=== PATIENT | male | born 1940 | race American Indian/Alaskan Native ===

== ENCOUNTER 2017-09-21 20:29 | Emergency (ER) | payer MEDICARE ==
[2017-09-21 21:17] LABS: Hematocrit 31.4 % (35.5-45.6); Hemoglobin 9.5 gm/dl (11.8-15.2); Mean Corpuscular HGB Conc 30 % (32-34); Platelet Count 201 K/mm3 (140-440); Red Blood Count 4.85 M/mm3 (3.65-5.03); Red Cell Distribution Width 19.2 % (13.2-15.2)
[2017-09-21 21:22] LABS: Mean Corpuscular Hemoglobin 20 pg (28-32); Mean Corpuscular Volume 65 fl (84-94)
[2017-09-21 21:28] LABS: INR 0.95 (0.87-1.13)
[2017-09-21 21:29] LABS: Partial Thromboplastin Time 30.1 Sec. (24.2-36.6)
[2017-09-21 21:33] LABS: BUN/Creatinine Ratio 8; Blood Urea Nitrogen 10 mg/dL (9-20); Calcium 8.8 mg/dL (8.4-10.2); Hemolysis Index 0
[2017-09-21] MEDS ORDERED: NORCO 7.5/325 PO ONE (23:04)
--- NOTE | 2017-09-21 23:54 | XRay Report ---
FINAL REPORT EXAM: XR HIP 2-3V RT HISTORY: pain R hip, knee, 1 wk TECHNIQUE: Right hip and AP pelvis PRIORS: None. FINDINGS: No fracture identified. No dislocation seen. Femoral head maintains a normal contour. Joint spaces within normal limits. Adjacent bony pelvis is unremarkable IMPRESSION: Negative hip series
--- NOTE | 2017-09-21 23:58 | XRay Report ---
FINAL REPORT EXAM: XR KNEE 3V RT HISTORY: pain R hip, knee, 1 wk TECHNIQUE: Right knee three views PRIORS: None. FINDINGS: There is right total knee replacement. There is no evidence for acute fracture dislocation. Components are intact and demonstrate expected positioning. IMPRESSION: Right total knee replacement No acute fracture identified
--- NOTE | 2017-09-22 00:09 | Cat Scan Report ---
FINAL REPORT EXAM: CT HEAD/BRAIN WO CON HISTORY: right leg weakness, 1 wk, prior hx stroke TECHNIQUE: Routine axial imaging was obtained of the brain without IV contrast. There are no previous studies available for comparison FINDINGS: There mcln-du-dnrrmwiu generalized atrophy. There is diminished attenuation of the periventricular and deep white matter compatible chronic microvascular disease changes. There are remote infarcts in the deep white matter of the left temporal lobe and basal ganglia. There is no evidence of acute stroke or hemorrhage. The ventricular system is appropriate in size. The visualized sinuses are clear. The mastoid air cells are well pneumatized. IMPRESSION: Bqks-dn-canuhlex generalized atrophy with chronic ischemic white matter disease changes Remote infarcts in the deep white matter of the left temporal lobe and adjacent basal ganglia. No evidence of acute stroke or hemorrhage.
--- NOTE | 2017-09-22 00:36 | Emergency Department Report ---
ED General Adult HPI - General Chief complaint: Extremity Injury, Lower Stated complaint: RIGHT LEG PAIN Time Seen by Provider: 09/21/17 22:50 Source: patient, family, EMS Mode of arrival: Wheelchair Limitations: Physical Limitation - History of Present Illness Initial comments: 77-year-old man, with chronic weakness and right upper and right lower extremity secondary to stroke in 2008, presents with one-week history of progressive pain, difficulty using his right upper extremity, primarily secondary to his pain. He walks with a semi-spastic gait, uses a walker, and has used braces previously for his leg weakness, but generally does not now. He has known osteoarthritis in his lower extremities, particularly on the right , but is difficulty standing and bearing weight because of the pain, but family is concerned that he may have had an additional stroke. He shows no other aggressive symptoms, no difficulty speaking, no facial droop, and no change in use of his right upper extremity, for which she is getting most of his use back. He has no left-sided complaints, no dizziness, no loss of consciousness, no falls and no injuries. Onset/Timin -: Gradual, week(s) Location: right, lower extremity Radiation: non-radiation Severity scale (0 -10): 5 Quality: aching Consistency: constant Improves with: none Worsens with: movement Associated Symptoms: denies other symptoms Treatments Prior to Arrival: none - Related Data Home Medications Medication Instructions Recorded Confirmed Last Taken Carafate 1 gram PO DAILY 09/21/17 09/21/17 Unknown Lisinopril 20 mg PO DAILY 09/21/17 09/21/17 Unknown Pepcid 20 mg PO DAILY 09/21/17 09/21/17 Unknown Plavix 75 mg PO DAILY 09/21/17 09/21/17 Unknown Simvastatin 40 mg PO HS 09/21/17 09/21/17 Unknown amLODIPine 5 mg PO DAILY 09/21/17 09/21/17 Unknown metFORMIN 500 mg PO DAILY 09/21/17 09/21/17 Unknown Previous Rx's Medication Instructions Recorded Last Taken Type HYDROcodone/APAP 5-325 [[place] 1 each PO Q6HR PRN #20 tablet 09/22/17 Unknown Rx 5/325] Allergies Allergy/AdvReac Type Severity Reaction Status Date / Time Penicillins Allergy Unknown Verified 09/21/17 20:51 ED Review of Systems ROS: Stated complaint: RIGHT LEG PAIN Other details as noted in HPI Comment: All other systems reviewed and negative Constitutional: denies: chills, fever ENT: denies: ear pain, throat pain Respiratory: denies: cough, shortness of breath, wheezing Cardiovascular: denies: chest pain, palpitations Endocrine: no symptoms reported Gastrointestinal: denies: abdominal pain, nausea, diarrhea Genitourinary: denies: urgency, dysuria Musculoskeletal: denies: back pain, joint swelling, arthralgia Skin: denies: rash, lesions Neurological: denies: headache, weakness, numbness, paresthesias Psychiatric: denies: anxiety, depression Hematological/Lymphatic: denies: easy bleeding, easy bruising ED Past Medical Hx - Past Medical History Hx Hypertension: Yes Hx CVA: Yes (with right-sided weakness,walks with maria l walker,right arm flaccid) Hx Diabetes: Yes Hx GERD: Yes Hx Asthma: Yes Additional medical history: elevated cholesterol - Surgical History Additional Surgical History: right knee total knee - Social History Smoking Status: Unknown if ever smoked Substance Use Type: None - Medications Home Medications: Home Medications Medication Instructions Recorded Confirmed Last Taken Type Carafate 1 gram PO DAILY 09/21/17 09/21/17 Unknown History Lisinopril 20 mg PO DAILY 09/21/17 09/21/17 Unknown History Pepcid 20 mg PO DAILY 09/21/17 09/21/17 Unknown History Plavix 75 mg PO DAILY 09/21/17 09/21/17 Unknown History Simvastatin 40 mg PO HS 09/21/17 09/21/17 Unknown History amLODIPine 5 mg PO DAILY 09/21/17 09/21/17 Unknown History metFORMIN 500 mg PO DAILY 09/21/17 09/21/17 Unknown History HYDROcodone/APAP 5-325 [[place] 1 each PO Q6HR PRN #20 tablet 09/22/17 Unknown Rx 5/325] ED Physical Exam - General Limitations: Physical Limitation General appearance: alert, in no apparent distress - Head Head exam: Present: atraumatic, normocephalic - Eye Eye exam: Present: PERRL - ENT ENT exam: Present: mucous membranes moist - Neck Neck exam: Present: normal inspection. Absent: tenderness, meningismus - Respiratory Respiratory exam: Present: normal lung sounds bilaterally. Absent: respiratory distress, wheezes, rales, rhonchi - Cardiovascular Cardiovascular Exam: Present: regular rate, normal heart sounds - GI/Abdominal GI/Abdominal exam: Present: soft, normal bowel sounds. Absent: distended, tenderness, guarding - Rectal Rectal exam: Present: deferred - Extremities Exam Extremities exam: Present: pedal edema (bilateral, 2-3+, right leg braced) - Expanded Lower Extremity Exam Right Hip exam: Present: full ROM, tenderness (with range of motion) Upper Leg exam: Present: normal inspection, full ROM. Absent: tenderness Knee exam: Present: tenderness (to general palpation), swelling (chronic enlargement, no effusion), deformity (secondary to osteoarthritis, no bony laxity), full knee extension. Absent: full ROM (Limited secondary to pain, but generally adequate range of motion), laceration, ecchymosis, effusion, pain/ laxity with valgus, pain/laxity with varus Lower Leg exam: Present: normal inspection. Absent: tenderness, ecchymosis, erythema, palpable cord Ankle exam: Present: normal inspection Neuro vascular tendon exam: Present: no vascular compromise Gait: Positive: not tested/not observed (due to chronic pain) - Back Exam Back exam: Present: normal inspection. Absent: CVA tenderness (R), CVA tenderness (L) - Neurological Exam Neurological exam: Present: alert, oriented X3, CN II-XII intact, other ( chronic weakness right arm, right leg,) - Psychiatric Psychiatric exam: Present: normal affect - Skin Skin exam: Present: warm, dry ED Course Vital Signs 09/21/17 09/21/17 20:28 20:42 Temperature 37.5 C 37.5 C Pulse Rate 93 H 94 H Respiratory 18 18 Rate Blood Pressure 148/75 148/75 O2 Sat by Pulse 96 96 Oximetry ED Medical Decision Making - Lab Data Result diagrams: 09/21/17 21:00 09/21/17 21:00 - Radiology Data Radiology results: report reviewed Right knee shows satisfactory right total knee replacement, with no dislocation disruption or fracture. Right hip is without fracture, or dislocation, and portion of pelvis surrounding hip is normal as well. CT scan shows evidence of prior left parietal infarct and basal ganglia, but no new infarct, no fluid, no mass effect, no midline shift. - Medical Decision Making Patient is clinically stable, has a chronic paresis of right side, but no findings suggestive of acute stroke, and no evidence of fracture on imaging. Although his discomfort could be from venous thromboembolism, he is currently on clopidogrel therapy, but would need a duplex Doppler venous imaging of the lower extremities, which is not available at this time. He is stable for discharge home, has been pointed with his primary care physician tomorrow, and will be discharged with pain medication, and given a prescription for venous Doppler imaging, which she can return for, or he can make arrangements through his physician. - Differential Diagnosis chronic leg pain, chronic paresis, leg fracture, stroke, DVT Critical Care Time: No Critical care attestation.: If time is entered above; I have spent that time in minutes in the direct care of this critically ill patient, excluding procedure time. ED Disposition Clinical Impression: Right leg pain, History of stroke Diabetes mellitus Qualifiers: Diabetes mellitus type: type 2 Diabetes mellitus chcf insulin use: without chcf use Diabetes mellitus complication status: without complication Qualified Code(s): E11.9 - Type 2 diabetes mellitus without complications Disposition: TO HOME OR SELFCARE Is pt being admited?: No Does the pt Need Aspirin: No Condition: Stable Instructions: Diabetes Mellitus Type 2 in Adults (ED), Arthralgia (ED) Additional Instructions: Return tomorrow to the emergency department, to register for Doppler scanning of her legs to check for blood clots. We will perform test, and make arrangements for further care if you're tested positive for blood clot. If you wish, he may had these tests are arranged for your doctor, whom you have an appointment to see tomorrow. We're also prescribing hydrocodone for pain, which he may take up to 4 times per day. Immature activities while you're taking pain medicine and rest while you're feeling discomfort. Prescriptions: HYDROcodone/APAP 5-325 [Benedict 5/325] 1 each PO Q6HR PRN #20 tablet PRN Reason: Pain Referrals: KANDACE LAMAR JR, MD [Primary Care Provider] - 3-5 Days Time of Disposition: 01:03
[2017-09-22 01:33] VITALS: BP 136/85
== END 2017-09-22 01:33 | disposition home or self-care (01) ==
LOC: ED 20:29
DX: M79.604 Pain in right leg (principal); E11.9 Type 2 diabetes mellitus without complications; I10 Essential (primary) hypertension; K21.9 Gastro-esophageal reflux disease without esophagitis; E78.00 Pure hypercholesterolemia, unspecified; J45.909 Unspecified asthma, uncomplicated; Z86.73 Personal history of transient ischemic attack (TIA), and cerebral infarction without residual deficits; Z79.84 Long term (current) use of oral hypoglycemic drugs; Z88.0 Allergy status to penicillin
CPT/HCPCS: 36415; 70450; 80048; 83880; 84484; 85027; 85610; 85730

== ENCOUNTER 2018-04-11 15:57 | Inpatient (IN) | payer MEDICARE ==
--- NOTE | 2018-04-11 18:21 | XRay Report ---
FINAL REPORT EXAM: XR CHEST ROUTINE 2V HISTORY: cough TECHNIQUE: 2 view examination of the chest PRIORS: None FINDINGS: Nonspecific streaky densities are present bilaterally with lung base predominance. This interstitial prominence may represent interstitial and/or vascular markings. There is no focal pulmonary consolidation. No evidence of pleural effusion or pneumothorax. The car diac silhouette size is normal. No evidence of acute skeletal pathology. Atherosclerotic calcificati on and tortuosity of aorta. Degenerative spondylosis in thoracic spine. IMPRESSION: Nonspecific interstitial prominence may reflect scarring or fibrosis. Acute considerations include r eactive airways disease, vascular congestion, interstitial edema, viral process, or interstitial pneu monitis.
[2018-04-11 18:22] LABS: Hematocrit 32.7 % (35.5-45.6); Mean Corpuscular HGB Conc 31 % (32-34); Platelet Count 202 K/mm3 (140-440); Red Blood Count 4.74 M/mm3 (3.65-5.03)
[2018-04-11 18:29] LABS: Mean Corpuscular Volume 69 fl (84-94); Red Cell Distribution Width 21.1 % (13.2-15.2)
--- NOTE | 2018-04-11 18:44 | Emergency Department Report ---
<CHARLENE HUMPHREY - Last Filed: 04/11/18 18:40> ED General Adult HPI - General Chief complaint: Extremity Injury, Lower Stated complaint: SWOLLEN FEET/L LEG PAIN Time Seen by Provider: 04/11/18 17:14 Source: patient Mode of arrival: Wheelchair Limitations: No Limitations - History of Present Illness Initial comments: Patient is a 77-year-old [place] male with a past medical history of CVA with right-sided residual weakness as well as diabetes and hypertension who is complaining of lower extremity swelling for the past 2-3 days. The right lower extremity is more swollen than the left. Patient's family history of gout howev er the swelling is now up to the level of the knees. Patient's family also is concerned of a cough that is been present for the past several days as well. Patient has very minimal shortness of breath. Patient has no history of heart failure at this time. - Related Data Home Medications Medication Instructions Recorded Confirmed Last Taken Carafate 1 gram PO DAILY 09/21/17 09/21/17 Unknown Lisinopril 20 mg PO DAILY 09/21/17 09/21/17 Unknown Pepcid 20 mg PO DAILY 09/21/17 09/21/17 Unknown Plavix 75 mg PO DAILY 09/21/17 09/21/17 Unknown Simvastatin 40 mg PO HS 09/21/17 09/21/17 Unknown amLODIPine 5 mg PO DAILY 09/21/17 09/21/17 Unknown metFORMIN 500 mg PO DAILY 09/21/17 09/21/17 Unknown Previous Rx's Medication Instructions Recorded Last Taken Type HYDROcodone/APAP 5-325 [[place] 1 each PO Q6HR PRN #20 tablet 09/22/17 Unknown Rx 5/325] Allergies Allergy/AdvReac Type Severity Reaction Status Date / Time Penicillins Allergy Unknown Verified 04/11/18 16:00 ED Review of Systems Comment: All other systems reviewed and negative ED Past Medical Hx - Past Medical History Hx Hypertension: Yes Hx CVA: Yes (with right-sided weakness,walks with maria l walker,right arm flaccid) Hx Diabetes: Yes Hx GERD: Yes Hx Asthma: Yes Additional medical history: elevated cholesterol - Surgical History Additional Surgical History: right knee total knee - Social History Smoking Status: Never Smoker Substance Use Type: None - Medications Home Medications: Home Medications Medication Instructions Recorded Confirmed Last Taken Type Carafate 1 gram PO DAILY 09/21/17 09/21/17 Unknown History Lisinopril 20 mg PO DAILY 09/21/17 09/21/17 Unknown History Pepcid 20 mg PO DAILY 09/21/17 09/21/17 Unknown History Plavix 75 mg PO DAILY 09/21/17 09/21/17 Unknown History Simvastatin 40 mg PO HS 09/21/17 09/21/17 Unknown History amLODIPine 5 mg PO DAILY 09/21/17 09/21/17 Unknown History metFORMIN 500 mg PO DAILY 09/21/17 09/21/17 Unknown History HYDROcodone/APAP 5-325 [[place] 1 each PO Q6HR PRN #20 tablet 09/22/17 Unknown Rx 5/325] ED Physical Exam - General Limitations: No Limitations General appearance: alert, in no apparent distress - Head Head exam: Present: atraumatic, normocephalic - Eye Eye exam: Present: normal appearance - ENT ENT exam: Present: mucous membranes moist - Neck Neck exam: Present: normal inspection - Respiratory Respiratory exam: Present: normal lung sounds bilaterally. Absent: respiratory distress, wheezes, rales, rhonchi - Cardiovascular Cardiovascular Exam: Present: regular rate, normal rhythm. Absent: systolic murmur, diastolic murmur, rubs, gallop - GI/Abdominal GI/Abdominal exam: Present: soft, normal bowel sounds - Rectal Rectal exam: Present: deferred - Extremities Exam Extremities exam: Present: normal inspection, pedal edema (patient has a 2+ remote level of the knees) - Back Exam Back exam: Present: normal inspection - Neurological Exam Neurological exam: Present: alert, oriented X3 - Psychiatric Psychiatric exam: Present: normal affect, normal mood - Skin Skin exam: Present: warm, dry, intact, normal color. Absent: rash ED Course - Reevaluation(s) Reevaluation #1: 04/11/18 18:43 Patient has a history of gout however he does have lower extremity edema and with his chronic cough he's had for the last several days the patient does have congestive heart failure S one of the diagnosis on his differential. BMP is in order as well as chemistries. Uric acid is been added as well. Patient will have chest x-ray rule out pulmonary edema. Patient was signed out to [facility] for continuation of his chart. ED Medical Decision Making - Lab Data Result diagrams: 04/11/18 18:16 ED Disposition Clinical Impression: Acute renal insufficiency, Elevated uric acid in blood CHF (congestive heart failure) Qualifiers: Heart failure type: right heart failure due to left heart failure Qualified Code(s): I50.814 - Right heart failure due to left heart failure Disposition: OP ADMIT IP TO THIS HOSP Condition: Stable Referrals: KUSUM ALVAREZ MD [Primary Care Provider] - 3-5 Days <RITA VILLEGAS - Last Filed: 04/11/18 20:20> ED General Adult HPI - History of Present Illness Associated Symptoms: cough ED Review of Systems ROS: Stated complaint: SWOLLEN FEET/L LEG PAIN Other details as noted in HPI ED Course Vital Signs 04/11/18 16:00 Temperature 99.3 F Pulse Rate 83 Respiratory 20 Rate Blood Pressure 118/65 O2 Sat by Pulse 95 Oximetry ED Medical Decision Making - Lab Data Result diagrams: 04/11/18 18:16 04/11/18 18:16 - Radiology Data Radiology results: report reviewed FINAL REPORT EXAM: XR CHEST ROUTINE 2V HISTORY: cough TECHNIQUE: 2 view examination of the chest PRIORS: None FINDINGS: Nonspecific streaky densities are present bilaterally with lung base predominance. This interstitial prominence may represent interstitial and/or vascular markings. There is no focal pulmonary consolidation. No evidence of pleural effusion or pneumothorax. The cardiac silhouette size is normal. No evidence of acute skeletal pathology. Atherosclerotic calcification and tortuosity of aorta. Degenerative spondylosis in thoracic spine. IMPRESSION: Nonspecific interstitial prominence may reflect scarring or fibrosis. Acute considerations include reactive airways disease, vascular congestion, interstitial edema, viral process, or interstitial pneumonitis. Transcribed By: BAL Dictated By: NERISSA SHAHDI MD Electronically Authenticated By: NERISSA SHAHID MD Signed Date/Time: 04/11/181820 DD/ 22 TD/TT: 04/11/181822 - Medical Decision Making Patient has been evaluated by this provider in fast track. Patient was seen by Dr. Patel Humphrey. Labs have returned with an elevation of his BU went from 10 to now 30 in creatinine from 1.2 to now 2.1. Patient's x-ray shows interstitial conso lidation. Spoke to Dr. Contreras nephrologists he recommends patient to be admitted and consult him in the morning. Spoke to patient and family did agree that patient can be admitted call has been placed to the hospitalist. Critical care attestation.: If time is entered above; I have spent that time in minutes in the direct care of this critically ill patient, excluding procedure time. ED Disposition Is pt being admited?: Yes
[2018-04-11 18:48] LABS: Calcium 8.8 mg/dL (8.4-10.2)
[2018-04-11 21:28] LABS: Anisocytosis 1+; Basophils % (Manual) 0 % (0.0-1.8); Eosinophils % (Manual) 0 % (0.0-4.3); Total Cells Counted 100
[2018-04-11 21:29] LABS: Platelet Estimate Consistent w Auto
--- NOTE | 2018-04-11 22:14 | History and Physical Report ---
History of Present Illness Date of examination: 04/11/18 History of present illness: 77-year-old man with a history of hypertension, CVA with right-sided weakness, hyperlipidemia was brought to the emergency room with complaint pain of swelling of the right leg and foot. Patient was started on treatment for gout without any improvement in his symptoms. He was started on a diuretic for his lower extremity edema. Patient has sedentary lifestyle, no PND, orthopnea Review of systems Constitutional: no weight loss, chills, fever Ears, eyes, nose, mouth and throat: no nasal congestion, no nasal discharge, no sinus pressure, no vision change, no red eye. Neck: No neck pain or rigidity. Cardiovascular: no palpitations, chest pain Respiratory: no cough, shortness of breath Gastrointestinal: no hematochezia, abdominal pain Genitourinary : no frequency , no hematuria Musculoskeletal: no joint swelling or muscle ache Integumentary: no rash, no pruritis Neurological: no parathesias, no focal weakness Endocrine: no cold or heat intolerance, no polyuria or polydipsia Hematologic/Lymphatic: no easy bruising, no easy bleeding, no gland swelling Allergic/Immunologic: no urticaria, no angioedema. PAST MEDICAL HISTORY:hypertension, CVA with right-sided weakness, hyperlipidemia PAST SURGICAL HISTORY: None SOCIAL HISTORY: Denies alcohol, drugs, tobacco FAMILY HISTORY: Hypertension Medications and Allergies Allergies Allergy/AdvReac Type Severity Reaction Status Date / Time Penicillins Allergy Unknown Verified 04/11/18 16:00 Home Medications Medication Instructions Recorded Confirmed Last Taken Type Carafate 1 gram PO DAILY 09/21/17 09/21/17 Unknown History Lisinopril 20 mg PO DAILY 09/21/17 09/21/17 Unknown History Pepcid 20 mg PO DAILY 09/21/17 09/21/17 Unknown History Plavix 75 mg PO DAILY 09/21/17 09/21/17 Unknown History Simvastatin 40 mg PO HS 09/21/17 09/21/17 Unknown History amLODIPine 5 mg PO DAILY 09/21/17 09/21/17 Unknown History metFORMIN 500 mg PO DAILY 09/21/17 09/21/17 Unknown History HYDROcodone/APAP 5-325 [[place] 1 each PO Q6HR PRN #20 tablet 09/22/17 Unknown Rx 5/325] Exam - Physical Exam Narrative exam: General Apperance: The patient lying in bed, breathing comfortable HEENT: Normocephalic, atraumatic. Pupils equally round and reactive to light, EOMI, no sclericterus or JVD or thyromegaly or nodule. , no carotid bruit, mucous membranes moist, no exudate or erythema Heart: S1-S2, regular is rhythm Lungs: Clear to auscultation bilaterally, breathing comfortable Abdomen: Positive bowel sounds, soft, nontender, nondistended, no organomegaly Extremities: + edema, right greater than left, no cyanosis clubbing Skin: no rash, nodule, warm and dry Neuro: cranial nerves 2-12 intact, speech is fluent, motor/sensory intact - Constitutional Vitals: Temp Pulse Resp BP Pulse Ox 99.3 F 83 20 118/65 95 04/11/18 16:00 04/11/18 16:00 04/11/18 16:00 04/11/18 16:00 04/11/18 16:00 Results - Labs CBC & Chem 7: 04/11/18 18:16 04/11/18 18:16 Labs: Abnormal lab results 04/11/18 04/11/18 04/11/18 Range/Units 18:16 18:16 18:16 WBC 12.7 H (4.5-11.0) K/mm3 Hgb 10.0 L (11.8-15.2) gm/dl Hct 32.7 L (35.5-45.6) % MCV 69 L (84-94) fl MCH 21 L (28-32) pg MCHC 31 L (32-34) % RDW 21.1 H (13.2-15.2) % Seg Neuts % (Manual) 90.0 H (40.0-70.0) % Lymphocytes % (Manual) 7.0 L (13.4-35.0) % Seg Neutrophils # Man 11.4 H (1.8-7.7) K/mm3 Lymphocytes # (Manual) 0.9 L (1.2-5.4) K/mm3 BUN 30 H (9-20) mg/dL Creatinine 2.1 H (0.8-1.5) mg/dL Glucose 165 H (75-100) mg/dL Uric Acid 9.0 H (3.5-7.6) mg/dL - Imaging and Cardiology EKG: report reviewed Chest x-ray: report reviewed Assessment and Plan Assessment Acute renal failure No extremity edema with significant increase in size on the right, rule out DVT, component of dependent edema present hypertension CVA with right-sided weakness hyperlipidemia Plan Admit to medicine Gentle IV fluid, , Hold diuretic, ARB, renal was consulted to see the patient Check Doppler of the lower extremity DVT prophylaxis
[2018-04-11 23:44] LABS: Bacteria,Urine 1+ /HPF (Negative); Mucus,Urine FEW /HPF
[2018-04-11] MEDS ORDERED: TYLENOL PO PRN (23:47)
[2018-04-11] MEDS ORDERED: SODIUM CHLORIDE FLUSH SYRINGE 10 ML IV PRN (23:47)
[2018-04-11] MEDS ORDERED: D50W (25GM) Syringe IV PRN (23:47)
[2018-04-11] MEDS ORDERED: ZOFRAN IV PRN (23:47)
[2018-04-11 23:48] LABS: Bilirubin,Urine NEG (Negative); Blood,Urine NEG (Negative); Color,Urine Yellow (Yellow); Hyaline Casts,Urine 1 /LPF; Protein,Urine <15 mg/dL mg/dL (Negative); Urobilinogen,Urine < 2.0 mg/dL (<2.0)
[2018-04-11 23:58] LABS: Creatinine,Urine 97.1 mg/dL (0.1-20.0)
[2018-04-12] MEDS: NACL 0.9% 1000 ML 1,000 ML IV SCH (06:14)
[2018-04-12 07:50] LABS: Hematocrit 30.8 % (35.5-45.6); Hemoglobin 9.6 gm/dl (11.8-15.2); Mean Corpuscular HGB Conc 31 % (32-34); Platelet Count 175 K/mm3 (140-440); Red Blood Count 4.49 M/mm3 (3.65-5.03)
[2018-04-12] MEDS: HumaLOG SUB-Q SCH ×4 (07:54→22:11)
[2018-04-12 07:56] LABS: Albumin 2.3 g/dL (3.9-5); Calcium 8.4 mg/dL (8.4-10.2)
[2018-04-12 08:00] LABS: Mean Corpuscular Volume 69 fl (84-94)
[2018-04-12 08:01] LABS: Red Cell Distribution Width 20.8 % (13.2-15.2)
[2018-04-12] MEDS ORDERED: PROVENTIL IH PRN (09:47)
[2018-04-12] MEDS ORDERED: NON-FORMULARY (Plavix 75 MG) PO SCH (10:00)
[2018-04-12] MEDS ORDERED: SUCRALFATE 1 GM PO SCH (10:00)
[2018-04-12] MEDS ORDERED: LOVENOX SUB-Q SCH (10:00)
[2018-04-12] MEDS: DELTASONE PO SCH (10:25)
[2018-04-12] MEDS: PLAVIX PO SCH (10:25)
[2018-04-12] MEDS: LOVENOX SUB-Q SCH (10:25)
[2018-04-12] MEDS: SODIUM CHLORIDE FLUSH SYRINGE 10 ML IV SCH ×2 (10:26→22:15)
[2018-04-12] MEDS: CARAFATE PO SCH (10:26)
[2018-04-12 11:49] LABS: Anisocytosis 1+; Basophils % (Manual) 0 % (0.0-1.8); Eosinophils % (Manual) 0 % (0.0-4.3); Platelet Estimate Consistent w Auto; Total Cells Counted 100
--- NOTE | 2018-04-12 13:02 | Progress Note ---
Assessment and Plan Assessment and plan: Right lower extremity edema - Doppler ultrasound to rule out DVT - Could be dependent edema - Patient was treated for gout with no improvement, patient has evaluated uric acid level, I put him on prednisone because of DEVIN Chronic persistent cough - Patient was treated with antibiotics as an outpatient, showed improvement and restarted again - Could be asthma and patient is on duonebs, cough syrup History of CVA with right-sided hemiparesis - Continue home medications and supportive care DEVIN - IV fluid - Nephrology consulted DVT prophylaxis - enoxaparin Disposition - Continue inpatient care History Interval history: Patient was seen and ordered this morning, patient is admitted for swelling of the right lower extremity. Patient was complaining severe persistent cough. Hospitalist Physical - Physical exam Narrative exam: Not in cardiopulmonary distress. The patient appeared well nourished and normally developed. Vital signs as documented. Head exam is unremarkable. No scleral icterus . Neck is without jugular venous distension, thyromegaly, or carotid bruits. Lungs are clear to auscultation. Cardiac exam reveals regular rate and Rhythm. First and second heart sounds normal. No murmurs, rubs or gallops. Abdominal exam reveals normal bowel sounds, no masses, no organomegaly and no aortic enlargement. Extremities are nonedematous and both femoral and pedal pulses are normal. [employer]: Alert and oriented 3. Right hemiplegia. - Constitutional Vitals: Temp Pulse Resp BP Pulse Ox 98.1 F 90 20 100/56 94 04/12/18 04:52 04/12/18 06:22 04/12/18 04:52 04/12/18 04:52 04/12/18 04:52 Results - Labs CBC & Chem 7: 04/12/18 07:14 04/12/18 07:14 Labs: Laboratory Last Values WBC 8.2 K/mm3 (4.5-11.0) 04/12/18 07:14 RBC 4.49 M/mm3 (3.65-5.03) 04/12/18 07:14 Hgb 9.6 gm/dl (11.8-15.2) L 04/12/18 07:14 Hct 30.8 % (35.5-45.6) L 04/12/18 07:14 MCV 69 fl (84-94) L 04/12/18 07:14 MCH 21 pg (28-32) L 04/12/18 07:14 MCHC 31 % (32-34) L 04/12/18 07:14 RDW 20.8 % (13.2-15.2) H 04/12/18 07:14 Plt Count 175 K/mm3 (140-440) 04/12/18 07:14 Add Manual Diff Complete 04/12/18 07:14 Total Counted 100 04/12/18 07:14 Seg Neuts % (Manual) 87.0 % (40.0-70.0) H 04/12/18 07:14 Band Neutrophils % 0 % 04/12/18 07:14 Lymphocytes % (Manual) 8.0 % (13.4-35.0) L 04/12/18 07:14 Reactive Lymphs % (Man) 1.0 % 04/12/18 07:14 Monocytes % (Manual) 4.0 % (0.0-7.3) 04/12/18 07:14 Eosinophils % (Manual) 0 % (0.0-4.3) 04/12/18 07:14 Basophils % (Manual) 0 % (0.0-1.8) 04/12/18 07:14 Metamyelocytes % 0 % 04/12/18 07:14 Myelocytes % 0 % 04/12/18 07:14 Promyelocytes % 0 % 04/12/18 07:14 Blast Cells % 0 % 04/12/18 07:14 Nucleated RBC % 1.0 % (0.0-0.9) H 04/12/18 07:14 Seg Neutrophils # Man 7.1 K/mm3 (1.8-7.7) 04/12/18 07:14 Band Neutrophils # 0.0 K/mm3 04/12/18 07:14 Lymphocytes # (Manual) 0.7 K/mm3 (1.2-5.4) L 04/12/18 07:14 Abs React Lymphs (Man) 0.1 K/mm3 04/12/18 07:14 Monocytes # (Manual) 0.3 K/mm3 (0.0-0.8) 04/12/18 07:14 Eosinophils # (Manual) 0.0 K/mm3 (0.0-0.4) 04/12/18 07:14 Basophils # (Manual) 0.0 K/mm3 (0.0-0.1) 04/12/18 07:14 Metamyelocytes # 0.0 K/mm3 04/12/18 07:14 Myelocytes # 0.0 K/mm3 04/12/18 07:14 Promyelocytes # 0.0 K/mm3 04/12/18 07:14 Blast Cells # 0.0 K/mm3 04/12/18 07:14 WBC Morphology Not Reportable 04/12/18 07:14 Hypersegmented Neuts Not Reportable 04/12/18 07:14 Hyposegmented Neuts Not Reportable 04/12/18 07:14 Hypogranular Neuts Not Reportable 04/12/18 07:14 Smudge Cells Not Reportable 04/12/18 07:14 Toxic Granulation Not Reportable 04/12/18 07:14 Toxic Vacuolation Not Reportable 04/12/18 07:14 Dohle Bodies Not Reportable 04/12/18 07:14 Pelger-Huet Anomaly Not Reportable 04/12/18 07:14 Alba Rods Not Reportable 04/12/18 07:14 Platelet Estimate Consistent w auto 04/12/18 07:14 Clumped Platelets Not Reportable 04/12/18 07:14 Plt Clumps, EDTA Not Reportable 04/12/18 07:14 Large Platelets Not Reportable 04/12/18 07:14 Giant Platelets Not Reportable 04/12/18 07:14 Platelet Satelliting Not Reportable 04/12/18 07:14 Plt Morphology Comment Not Reportable 04/12/18 07:14 RBC Morphology Not Reportable 04/12/18 07:14 Dimorphic RBCs Not Reportable 04/12/18 07:14 Polychromasia Not Reportable 04/12/18 07:14 Hypochromasia Not Reportable 04/12/18 07:14 Poikilocytosis Not Reportable 04/12/18 07:14 Anisocytosis 1+ 04/12/18 07:14 Microcytosis 1+ 04/12/18 07:14 Macrocytosis Not Reportable 04/12/18 07:14 Spherocytes Not Reportable 04/12/18 07:14 Pappenheimer Bodies Not Reportable 04/12/18 07:14 Sickle Cells Not Reportable 04/12/18 07:14 Target Cells Not Reportable 04/12/18 07:14 Tear Drop Cells Not Reportable 04/12/18 07:14 Ovalocytes Not Reportable 04/12/18 07:14 Helmet Cells Not Reportable 04/12/18 07:14 [place] Bodies Not Reportable 04/12/18 07:14 [place] Rings Not Reportable 04/12/18 07:14 Jazmin Cells Not Reportable 04/12/18 07:14 Bite Cells Not Reportable 04/12/18 07:14 Crenated Cell Not Reportable 04/12/18 07:14 Elliptocytes Not Reportable 04/12/18 07:14 Acanthocytes (Spur) Not Reportable 04/12/18 07:14 Rouleaux Not Reportable 04/12/18 07:14 Hemoglobin C Crystals Not Reportable 04/12/18 07:14 Schistocytes Not Reportable 04/12/18 07:14 Malaria parasites Not Reportable 04/12/18 07:14 James Bodies Not Reportable 04/12/18 07:14 Hem Pathologist Commnt No 04/12/18 07:14 Sodium 140 mmol/L (137-145) 04/12/18 07:14 Potassium 4.3 mmol/L (3.6-5.0) 04/12/18 07:14 Chloride 104.0 mmol/L (98-107) 04/12/18 07:14 Carbon Dioxide 23 mmol/L (22-30) 04/12/18 07:14 Anion Gap 17 mmol/L 04/12/18 07:14 BUN 28 mg/dL (9-20) H 04/12/18 07:14 Creatinine 1.9 mg/dL (0.8-1.5) H 04/12/18 07:14 Estimated GFR 42 ml/min 04/12/18 07:14 BUN/Creatinine Ratio 15 % 04/12/18 07:14 Glucose 145 mg/dL (75-100) H 04/12/18 07:14 POC Glucose 136 (70-105) H 04/12/18 11:11 Uric Acid 9.0 mg/dL (3.5-7.6) H 04/11/18 18:16 Calcium 8.4 mg/dL (8.4-10.2) 04/12/18 07:14 Phosphorus 3.50 mg/dL (2.5-4.5) 04/12/18 07:14 Magnesium 2.00 mg/dL (1.7-2.3) 04/12/18 07:14 Total Bilirubin 0.20 mg/dL (0.1-1.2) 04/12/18 07:14 AST 16 units/L (5-40) 04/12/18 07:14 ALT 18 units/L (7-56) 04/12/18 07:14 Alkaline Phosphatase 91 units/L (35-129) 04/12/18 07:14 Total Creatine Kinase 100 units/L (55-170) 04/12/18 07:14 NT-Pro-B Natriuret Pep 500.8 pg/mL (0-900) 04/11/18 18:16 Total Protein 6.2 g/dL (6.3-8.2) L 04/12/18 07:14 Albumin 2.3 g/dL (3.9-5) L 04/12/18 07:14 Albumin/Globulin Ratio 0.6 % 04/12/18 07:14 Urine Color Yellow (Yellow) 04/11/18 23:22 Urine Turbidity Clear (Clear) 04/11/18 23:22 Urine pH 5.0 (5.0-7.0) 04/11/18 23:22 Ur Specific [place] 1.008 (1.003-1.030) 04/11/18 23:22 Urine Protein <15 mg/dl mg/dL (Negative) 04/11/18 23:22 Urine Glucose (UA) Neg mg/dL (Negative) 04/11/18 23:22 Urine Ketones Neg mg/dL (Negative) 04/11/18 23:22 Urine Blood Neg (Negative) 04/11/18 23:22 Urine Nitrite Neg (Negative) 04/11/18 23:22 Ur Reducing Substances Not Reportable 04/11/18 23:22 Urine Bilirubin Neg (Negative) 04/11/18 23:22 Urine Ictotest Not Reportable 04/11/18 23:22 Urine Urobilinogen < 2.0 mg/dL (<2.0) 04/11/18 23:22 Ur Leukocyte Esterase Tr (Negative) 04/11/18 23:22 Urine WBC (Auto) 2.0 /HPF (0.0-6.0) 04/11/18 23:22 Urine RBC (Auto) 2.0 /HPF (0.0-6.0) 04/11/18 23:22 U Epithel Cells (Auto) < 1.0 /HPF (0-13.0) 04/11/18 23:22 Urine Bacteria (Auto) 1+ /HPF (Negative) 04/11/18 23:22 Hyaline Casts 1 /LPF 04/11/18 23:22 Urine Mucus Few /HPF 04/11/18 23:22 Urine Creatinine 97.1 mg/dL (0.1-20.0) H 04/11/18 23:22 Urine Sodium 60 mmol/L 04/11/18 23:22
--- NOTE | 2018-04-12 13:44 | Consultation ---
History of Present Illness - Reason for Consult Consult date: 04/12/18 acute renal failure - History of Present Illness the patient is a 77 YO male with history significant for Hypertension, HLD, Obesity, CVA with right-sided weakness and ?Gout who was brought to the ER with complaint of pain and swelling of the right leg. The symptoms started about a month ago and progressively gotten worse. He was started on treatment for gout without any improvement in the symptoms. He was also started on a diuretic for his lower extremity edema. Patient is eating well. Denies any h/o N, V, D, fev er, chills, cough, sob, cp, abd pain, jaundice, dysuria or hematuria. Creatinine was 2.1 on admission, increased from 1.2 about 6 months ago. Nephrology was consulted for further evaluation. Past History Past Medical History: hypertension, hyperlipidemia, stroke Medications and Allergies Allergies Allergy/AdvReac Type Severity Reaction Status Date / Time Penicillins Allergy Unknown Verified 04/11/18 16:00 Home Medications Medication Instructions Recorded Confirmed Last Taken Type Carafate 1 gram PO DAILY 09/21/17 04/12/18 04/11/18 History Pepcid 20 mg PO DAILY 09/21/17 04/12/18 04/11/18 History Plavix 75 mg PO DAILY 09/21/17 04/12/18 04/11/18 History Simvastatin 40 mg PO HS 09/21/17 04/12/18 04/10/18 History amLODIPine 5 mg PO DAILY 09/21/17 04/12/18 04/11/18 History metFORMIN 500 mg PO DAILY 09/21/17 04/12/18 Unknown History HYDROcodone/APAP 5-325 [Gerald 1 each PO Q6HR PRN #20 tablet 09/22/17 04/12/18 Unknown Rx 5/325] Active Meds: Active Medications Acetaminophen (Tylenol) 650 mg PO Q4H PRN PRN Reason: Pain MILD(1-3)/Fever >100.5/MACIAS Albuterol (Proventil) 2.5 mg IH Q4H PRN PRN Reason: Shortness Of Breath Benzonatate (Tessalon Perles) 100 mg PO Q6H PRN PRN Reason: Cough Clopidogrel Bisulfate (Plavix) 75 mg PO QDAY FREDI Last Admin: 04/12/18 10:25 Dose: 75 mg Documented by: Dextrose (D50w (25gm) Syringe) 50 ml IV PRN PRN PRN Reason: Hypoglycemia Enoxaparin Sodium (Lovenox) 40 mg SUB-Q QDAY@1000 [facility] Last Admin: 04/12/18 10:25 Dose: 40 mg Documented by: Guaifenesin (Guaifenesin Dm Syrup) 10 ml PO Q4H PRN PRN Reason: Cough Last Admin: 04/12/18 10:25 Dose: 10 ml Documented by: Sodium Chloride (Nacl 0.9% 1000 Ml) 1,000 mls @ 75 mls/hr IV DIRECT [facility] Last Admin: 04/12/18 06:14 Dose: 75 mls/hr Documented by: Insulin Human Lispro (Humalog) 0 unit SUB-Q ACHS [facility]; Protocol Last Admin: 04/12/18 12:48 Dose: Not Given Documented by: Ondansetron HCl (Zofran) 4 mg IV Q8H PRN PRN Reason: Nausea And Vomiting Pravastatin Sodium (Pravachol) 80 mg PO QHS [facility] Prednisone (Deltasone) 20 mg PO QDAY [facility] Last Admin: 04/12/18 10:25 Dose: 20 mg Documented by: Sodium Chloride (Sodium Chloride Flush Syringe 10 Ml) 10 ml IV BID [facility] Last Admin: 04/12/18 10:26 Dose: 10 ml Documented by: Sodium Chloride (Sodium Chloride Flush Syringe 10 Ml) 10 ml IV PRN PRN PRN Reason: LINE FLUSH Sucralfate (Carafate) 1 gm PO DAILY [facility] Last Admin: 04/12/18 10:26 Dose: 1 gm Documented by: Review of Systems Constitutional: no weight loss, no weight gain, no fever, no chills, no anorexia, no fatigue, no weakness, no poor appetite Cardiovascular: edema, high blood pressure, leg edema, no chest pain, no orthopnea, no palpitations, no syncope, no lightheadedness, no shortness of breath, no dyspnea on exertion, no paroxysmal nocturnal dyspnea Respiratory: no cough, no cough with sputum, no hemoptysis, no shortness of breath, no dyspnea on exertion, no home oxygen Gastrointestinal: no abdominal pain, no nausea, no vomiting, no diarrhea, no melena, no hematochezia, no loss of appetite, no jaundice Genitourinary Male: no dysuria, no kidney stones Rectal: no bleeding Musculoskeletal: no prior amputations Integumentary: no rash, no sores, no wounds, no jaundice Neurological: paralysis, no numbness, no tingling, no seizures, no syncope, no confusion, no memory loss Psychiatric: no change in appetite Exam - Vital Signs Vital signs: Vital Signs Temp Pulse Resp BP Pulse Ox 99.3 F 83 20 118/65 95 04/11/18 16:00 04/11/18 16:00 04/11/18 16:00 04/11/18 16:00 04/11/18 16:00 - General Appearance General appearance: well-developed, well-nourished, appears stated age, obese, other (not in distress) EENT: ATNC, PERRL, mucous membranes dry, hearing intact, vision intact Neck: Present: neck supple, trachea midline Respiratory: Rales Heart: regular, S1S2, no murmurs Gastrointestinal: Present: normoactive bowel sounds, obese. Absent: tenderness, distended Integumentary: no rash, warm and dry Neurologic: no asterixis, alert and oriented x3, hemiplegic (right side) Musculoskeletal: Present: other (bilateral LE edema, R > L) Psychiatric: cooperative Results - Lab Results 04/12/18 07:14 04/12/18 07:14 Most recent lab results Calcium 8.4 mg/dL (8.4-10.2) 04/12/18 07:14 Phosphorus 3.50 mg/dL (2.5-4.5) 04/12/18 07:14 Magnesium 2.00 mg/dL (1.7-2.3) 04/12/18 07:14 Urine Creatinine 97.1 mg/dL (0.1-20.0) H 04/11/18 23:22 Urine Sodium 60 mmol/L 04/11/18 23:22 - Image Kidney/bladder ultrasound: pending Assessment and Plan 1. Acute kidney injury: Patient admitted with elevated creatinine from his baseline. The etiology for DEVIN is unclear at this time. Urine study results noted, UA is bland. Renal US. Some improvement in the creatinine level noted. Patient is on IV fluids. 2. Right lower extremity edema: Doppler ultrasound to rule out DVT. Suspect dependent edema. Pro-BNP was normal. 3. Anemia. 4. CVA with right hemiparesis.
[2018-04-12] MEDS: TESSALON PERLES PO PRN ×2 (14:03→22:11)
--- NOTE | 2018-04-12 15:48 | Vascular Lab Report ---
FINAL REPORT EXAM: VL VENOUS DUPLEX LE BILAT HISTORY: eval for dvt COMPARISON: None. TECHNIQUE: Duplex Doppler ultrasound of the veins of the bilateral lower extremities was performed. FINDINGS: There are normal waveforms, augmentation, and compression of the veins of the bilateral lower extremi ties. There are a few small echoes in the right posterior tibial vein and right peroneal vein. There are a few echoes in the left peroneal vein. IMPRESSION: No definite evidence for deep venous thrombosis. Few scattered echoes within the right posterior tibial vein, right peroneal vein, and left peroneal v ein. These veins remain compressible and demonstrate normal waveforms. Findings may represent prior v enous thromboses or slow flow.
--- NOTE | 2018-04-12 19:49 | Cat Scan Report ---
FINAL REPORT EXAM: CT ABDOMEN PELVIS WO CON HISTORY: right leg swelling COMPARISON: None available. TECHNIQUE: Contiguous axial images were obtained. Additional sagittal and coronal reformatted images were obtained. FINDINGS: Nonspecific patchy linear and nodular densities at the lung bases. Trace bilateral pleural effusions slightly greater on the right. Tiny calcified gallstones towards the gallbladder neck. No gross inflammatory changes the gallbladder . Evaluation of the upper abdomen somewhat limited due to patient respiratory motion arm positioning along the anterior abdominal wall. Liver, spleen, pancreas are grossly unremarkable. Mild nodular thickening of adrenal glands. 3 millimeter nonobstructive right renal calculus. No hydronephrosis on the right. Moderate dilatation left renal pelvis suspected to be on a chronic basis related to chronic UPJ obstruction. Left ureter is normal in caliber. Mild atrophy left kidney compared to the right, likely on a chronic basis. Aor ta and IVC normal in caliber. Mild to moderate calcified plaque along the aorta. No distal ureteral c alculi on the left. At the posterior right margin the urinary bladder there is a 1 millimeter calculus (series 2, image 1 57). Prostate gland is grossly unremarkable. No free fluid or lymphadenopathy in the pelvic cavity. Large and small bowel loops normal in caliber. No focal inflammatory changes the bowel. The appendix is normal in caliber. [id number] degenerative changes of the lumbar spine. Bony pelvis is grossly intact. Mild degene rative changes of bilateral hips. IMPRESSION: No mass identified within the abdomen and pelvis to expanding right-sided lower extremity swelling. Nonspecific patchy nodular opacities at the lung bases and trace effusions concerning for edema versu s infection. 3 millimeter nonobstructive right renal calculus. Punctate calculus at the posterior right margin the urinary bladder. Moderate dilatation of left renal pelvis suspected be on a chronic basis related to chronic UPJ obstr uction. No other gross acute findings.
--- NOTE | 2018-04-12 20:11 | Ultrasound Report ---
FINAL REPORT EXAM: US RENAL BILAT HISTORY: Acute renal failure. COMPARISON: CT abdomen and pelvis from the same date. TECHNIQUE: Several real-time grayscale and color Doppler images were obtained. FINDINGS: Right kidney measures 10.5 x 5.8 x 4.9 centimeters. Cortex 1.3 centimeters. Left kidney measures 12.2 x 7.2 x 7.9 centimeters. Cortex 1.3 centimeters. No gross focal renal lesion hydronephrosis on the right. Moderate dilatation of left renal pelvis. No gross focal renal lesion. There is vascular flow to the bilateral kidneys. Visualized urinary bladder is grossly unremarkable. IMPRESSION: Moderate dilatation of left renal pelvis and seen on earlier CT suspected relate to chronic UPJ obstr uction. No gross focal renal lesion hydronephrosis on the right. Punctate nonobstructive right renal calculus seen on earlier CT is not visualized by ultrasound and may be obscured by renal sinus fat. Punctate urinary bladder calculus seen on CT is not visualized by ultrasound.
[2018-04-12] MEDS ORDERED: NON-FORMULARY (Simvastatin 40 MG) PO SCH (22:00)
[2018-04-12] MEDS ORDERED: PRAVACHOL PO SCH (22:00)
[2018-04-13] MEDS: NACL 0.9% 1000 ML 1,000 ML IV SCH (00:15)
[2018-04-13] MEDS: HumaLOG SUB-Q SCH (08:21)
[2018-04-13 08:26] LABS: Calcium 8.1 mg/dL (8.4-10.2)
--- NOTE | 2018-04-13 08:53 | Progress Note ---
Assessment and Plan 1. Acute kidney injury: Patient admitted with elevated creatinine from his baseline. Likely Vasomotor / hemodynamic DEVIN, improving. Renal US showed enlarged left renal pelvis without any hydronephrosis. Urology eval as outpatient. 2. Right lower extremity edema: Suspect dependent edema. Pro-BNP was normal. 3. Anemia. 4. CVA with right hemiparesis. D/w his at the bedside. F/u with me in 1-2 weeks. Subjective Date of service: 04/13/18 Interval history: Patient is feeling better. Cough is better. Objective - Vital Signs Vital signs: Vital Signs - 12hr 04/12/18 04/12/18 04/12/18 21:39 23:15 23:18 Temperature 98.2 F 97.6 F Pulse Rate 86 92 H Respiratory 20 20 Rate Blood Pressure 121/66 121/66 O2 Sat by Pulse 96 98 98 Oximetry 04/13/18 06:38 Temperature 98.6 F Pulse Rate 100 H Respiratory 22 Rate Blood Pressure 135/73 O2 Sat by Pulse 97 Oximetry - General Appearance General appearance: well-developed, well-nourished, appears stated age, obese, other (not in distress) EENT: ATNC, PERRL, mucous membranes moist, hearing intact, vision intact Neck: supple Respiratory: Present: Rales (faint) Cardiology: regular, S1S2, no murmurs Gastrointestinal: normoactive bowel sounds, no tenderness, no distended Integumentary: no rash, warm and dry Neurologic: no focal deficit, no asterixis Musculoskeletal: other (trace right leg edema) - Lab 04/12/18 07:14 04/13/18 07:48 Most recent lab results Calcium 8.1 mg/dL (8.4-10.2) L 04/13/18 07:48 Phosphorus 3.50 mg/dL (2.5-4.5) 04/12/18 07:14 Magnesium 2.00 mg/dL (1.7-2.3) 04/12/18 07:14 Urine Creatinine 97.1 mg/dL (0.1-20.0) H 04/11/18 23:22 Urine Sodium 60 mmol/L 04/11/18 23:22 Medications & Allergies - Medications Allergies/Adverse Reactions: Allergies Penicillins Allergy (Verified 04/11/18 16:00) Unknown Home Medications: Home Medications Medication Instructions Recorded Confirmed Last Taken Type Carafate 1 gram PO DAILY 09/21/17 04/12/18 04/11/18 History Pepcid 20 mg PO DAILY 09/21/17 04/12/18 04/11/18 History Plavix 75 mg PO DAILY 09/21/17 04/12/18 04/11/18 History Simvastatin 40 mg PO HS 09/21/17 04/12/18 04/10/18 History amLODIPine 5 mg PO DAILY 09/21/17 04/12/18 04/11/18 History metFORMIN 500 mg PO DAILY 09/21/17 04/12/18 Unknown History HYDROcodone/APAP 5-325 [[place] 1 each PO Q6HR PRN #20 tablet 09/22/17 04/12/18 Unknown Rx 5-325 mg TAB] Active Medications: Generic Name Dose Route Start Last Admin Trade Name Freq PRN Reason Stop Dose Admin Acetaminophen 650 mg 04/11/18 23:47 04/12/18 14:03 Tylenol PO 650 mg Q4H PRN Administration Pain MILD(1-3)/Fever >100.5/MACIAS Albuterol 2.5 mg 04/12/18 09:47 Proventil IH Q4H PRN Shortness Of Breath Benzonatate 100 mg 04/12/18 06:19 04/12/18 22:11 Tessalon Perles PO 100 mg Q6H PRN Administration Cough Clopidogrel Bisulfate 75 mg 04/12/18 10:00 04/12/18 10:25 Plavix PO 75 mg QDAY FREDI Administration Dextrose 50 ml 04/11/18 23:47 D50w (25gm) Syringe IV PRN PRN Hypoglycemia Enoxaparin Sodium 40 mg 04/12/18 10:00 04/12/18 10:25 Lovenox SUB-Q 40 mg QDAY@1000 FREDI Administration Guaifenesin 10 ml 04/12/18 09:46 04/12/18 10:25 Guaifenesin Dm Syrup PO 10 ml Q4H PRN Administration Cough Sodium Chloride 1,000 mls @ 75 mls/hr 04/12/18 05:00 04/13/18 00:15 Nacl 0.9% 1000 Ml IV 75 mls/hr DIRECT FREDI Administration Insulin Human Lispro 0 unit 04/12/18 07:30 04/13/18 08:21 Humalog SUB-Q Not Given ACHS FREDI Protocol Ondansetron HCl 4 mg 04/11/18 23:47 Zofran IV Q8H PRN Nausea And Vomiting Pravastatin Sodium 80 mg 04/12/18 22:00 04/12/18 22:08 Pravachol PO 80 mg QHS FREDI Administration Prednisone 20 mg 04/12/18 10:00 04/12/18 10:25 Deltasone PO 20 mg QDAY FREDI Administration Sodium Chloride 10 ml 04/12/18 10:00 04/12/18 22:15 Sodium Chloride Flush Syringe 10 Ml IV 10 ml BID FREDI Administration Sodium Chloride 10 ml 04/11/18 23:47 Sodium Chloride Flush Syringe 10 Ml IV PRN PRN LINE FLUSH Sucralfate 1 gm 04/12/18 10:00 04/12/18 10:26 Carafate PO 1 gm DAILY FREDI Administration
[2018-04-13 09:18] VITALS: BP 125/70
--- NOTE | 2018-04-13 09:32 | Discharge Summary ---
Providers - Providers Date of Admission: 04/11/18 22:12 Attending physician: LUIZ IRELAND MD 04/11/18 20:11 Consult to Physician [CONS] Urgent Comment: Monica spoke with Dr. Cespedes @ 1958 Consulting Provider: ЕЛЕНА CESPEDES Physician Instructions: Reason For Exam: renal insufficiency Primary care physician: KUSUM ALVAREZ Hospitalization Reason for admission: Right leg swelling Condition: Stable Pertinent studies: Doppler u/s of the LE; negative for PE. CT abdomen and pelvis; normal findings. CXR normal Renal U/s; renal parenchymal disease Hospital course: 77-year-old man with a history of hypertension, CVA with right-sided weakness, hyperlipidemia was brought to the emergency room with complaint pain of swelling of the right leg and foot. Patient was started on treatment for gout without any improvement in his symptoms. He was started on a diuretic for his lower extremity edema. Patient has sedentary lifestyle, no PND, orthopnea. Patient has DEVIN and nephrology was consulted andrecommend O/P F/U, kidney function was getting better.The leg swelling is likely functional and improved with leg elevation. All work up was negative. patient was hemodynamically stable at the time of discharge. Discussed the management plan with the patient and his families. Disposition: - TO HOME OR SELFCARE Time spent for discharge: 32 minutes - Discharge Diagnoses (1) Acute renal insufficiency Status: Acute (2) CHF (congestive heart failure) Status: Suspected Qualifiers: Heart failure type: right heart failure due to left heart failure Qualified Code(s): I50.814 - Right heart failure due to left heart failure (3) Elevated uric acid in blood Status: Acute Core Measure Documentation - Palliative Care Palliative Care/ Comfort Measures: Not Applicable - Core Measures Any of the following diagnoses?: none Exam - Physical Exam Narrative exam: Not in cardiopulmonary distress. The patient appeared well nourished and normally developed. Vital signs as documented. Head exam is unremarkable. No scleral icterus . Neck is without jugular venous distension, thyromegaly, or carotid bruits. Lungs are clear to auscultation. Cardiac exam reveals regular rate and Rhythm. First and second heart sounds normal. No murmurs, rubs or gallops. Abdominal exam reveals normal bowel sounds, no masses, no organomegaly and no aortic enlargement. Extremities are nonedematous and both femoral and pedal pulses are normal. CPR INSTRUCTOR: Alert and oriented 3. Right hemiplegia. - Constitutional Vitals: Temp Pulse Resp BP Pulse Ox 98.4 F 95 H 20 125/70 100 04/13/18 07:37 04/13/18 07:37 04/13/18 07:37 04/13/18 07:37 04/13/18 07:37 Plan Activity: advance as tolerated Weight Bearing Status: Partial Weight Bearing Diet: low salt Follow up with: KUSUM ALVAREZ MD [Primary Care Provider] - 3-5 Days LES NUNO MD [Staff Physician] - 14 Days ЕЛЕНА CESPEDES MD [Staff Physician] - 10 Days
[2018-04-13] MEDS: CARAFATE PO SCH (09:51)
[2018-04-13] MEDS: DELTASONE PO SCH (09:51)
[2018-04-13] MEDS: SODIUM CHLORIDE FLUSH SYRINGE 10 ML IV SCH (09:52)
[2018-04-13] MEDS: PLAVIX PO SCH (09:52)
[2018-04-13] MEDS: LOVENOX SUB-Q SCH (09:52)
--- NOTE | 2018-04-16 07:17 | Query- Nutrition ---
Olvin Trejo Lucy Date: 04/16/18 Outsole Molder/CDS: Que/Carl Phone#: [phone] Exercise your independent professional judgment when responding to query. Questions asked do not imply a particular answer is desired or expected. We greatly appreciate your clarification on this issue. Clinical Documentation States: 77-year-old man with a history of hypertension, CVA with right-sided weakness, hyperlipidemia was brought to the emergency room with complaint pain of swelling of the right leg and foot. Patient was started on treatment for gout without any improvement in his symptoms. He was started on a diuretic for his lower extremity edema. PAST MEDICAL HISTORY:hypertension, CVA with right-sided weakness, hyperlipidemia Assessment and Plan Acute renal failure hypertension CVA with right-sided weakness Clinical Findings Show: 04/12/18 Albumin 2.3 L Please select the most appropriate option [] Mild Malnutrition [] Mild - Moderate Malnutrition [x] Severe Malnutrition Serum Albumin 2.8 to 3.4 g/dl or Pre-albumin 5 to 17 mg/dl1,2 Inadequate nutritional intake1,2,3,4 NPO > 5 days Weight loss: 5% in 1 month or 7.5% in 3 months or 10% in 6 months1, 3,4 BMI 16 to 18.4 or Weight <90% of ideal body weight1,2,3,4 Serum Albumin < 2.8 g/ dl1,2 Lymphocytes < 1500/ L2 Inadequate nutritional intake3, high stress e.g. major trauma, sepsis,pancreatitis, hernandez etc. Decubitus ulcers1,2, , skin breakdown2, easy hair pluckability2 Weight <80% standard for height2 Triceps skin fold <3 mm2 Mid-arm muscle circumference <15 cm2 Creatinine-height index <60% standard2 [ ] Cachexia [ ] Emaciated w/Malnutrition [ ] Other: [ ] Unable to determine [ ] Comment/Explanation: Present on Admission: [x ] Yes (Y) [ ] Clinically undeterminable (W) [ ] No (N) Please also document response in your Progress Notes and/or Discharge Summary and indicate if the condition was present on admission. MTDD
--- NOTE | 2018-04-16 07:18 | Query- Renal Failure ---
Olvin Trejo Lucy Date: 04/16/18 Corrosion Prevention Metal Sprayer/CDS: Que/ Phone#:____[phone] Exercise your independent professional judgment when responding to query. Questions asked do not imply a particular answer is desired or expected. We greatly appreciate your clarification on this issue. Clinical Documentation States: 77-year-old man with a history of hypertension, CVA with right-sided weakness, hyperlipidemia was brought to the emergency room with complaint pain of swelling of the right leg and foot. Patient was started on treatment for gout without any improvement in his symptoms. He was started on a diuretic for his lower extremity edema. PAST MEDICAL HISTORY:hypertension, CVA with right-sided weakness, hyperlipidemia Assessment and Plan Acute renal failure hypertension CVA with right-sided weakness Clinical Findings Show: 04/11/18 04/12/18 Creatinine 2.1 1.9 Please clarify if you mean: Acute Renal Failure with or due to: [ ] Tubular Necrosis [ ] Medullary Necrosis [ ] Vasomotor Nephropathy [ ] Shock Kidney [ ] Tubular Nephrosis [ ] Renal Tubular Stasis [ ] Cortical Necrosis [ ] Acute Renal Failure (unspecified) [ ] Lower Tubular Nephrosis [x ] Other:___The creatinine change should be 0.3 or more. this one doesn't fullfill the criteria [ ] Not Applicable Present on Admission: [ ] Yes (Y) [ ] Clinically undeterminable (W) [x ] No (N) Please also document response in your Progress Notes and/or Discharge Summary and indicate if the condition was present on admission. JANIED
--- NOTE | 2018-04-16 07:18 | Query- General ---
Dear Lucy Date: 04/16/18 Induction Heat Treater/CDS:____Que/ Phone#:____[phone] Exercise your independent professional judgment when responding to this query. Questions asked do not imply a particular answer is desired or expected. We greatly appreciate your clarification on this issue. Clinical Documentation States: 77-year-old man with a history of hypertension, CVA with right-sided weakness, hyperlipidemia was brought to the emergency room with complaint pain of swelling of the right leg and foot. Patient was started on treatment for gout without any improvement in his symptoms. He was started on a diuretic for his lower extremity edema. PAST MEDICAL HISTORY:hypertension, CVA with right-sided weakness, hyperlipidemia Assessment and Plan Acute renal failure hypertension CVA with right-sided weakness As per Discharge Summary () 04/13/18-- "Physical Exam PANTS PRESSER AUTOMATIC: Alert and oriented 3. Right hemiplegia." Given the above clinical scenario can you please provide an appropriate diagnosis based on your knowledge of the patient: PHYSICIAN RESPONSE: [ ] CVA Ruled IN [ ] CVA Ruled OUT [ x] Other (Please specify) ____History of CVA with right sided weakness, no suspicion of acute CVA, no need to r/o or rule in. Present on Admission: [ ] Yes (Y) [ ] Clinically undeterminable (W) [x ]No(N) Please also document response in your Progress Notes and/or Discharge Summary and indicate if the condition was present on admission. YOUNG
== END 2018-04-13 12:45 | disposition home health service (06) | DRG 682 ==
LOC: ED 15:57 → 4A 22:12
PROVIDERS: ADMIT Internal Medicine; ATTEND Internal Medicine
DX: N17.9 Acute kidney failure, unspecified (principal); E43 Unspecified severe protein-calorie malnutrition; I69.351 Hemiplegia and hemiparesis following cerebral infarction affecting right dominant side; I11.0 Hypertensive heart disease with heart failure; I50.814 Right heart failure due to left heart failure; E78.5 Hyperlipidemia, unspecified; E78.00 Pure hypercholesterolemia, unspecified; M79.89 Other specified soft tissue disorders; Z82.49 Family history of ischemic heart disease and other diseases of the circulatory system; Z88.0 Allergy status to penicillin; Z79.84 Long term (current) use of oral hypoglycemic drugs
CPT/HCPCS: 36415; 71046; 74176; 76770; 80048; 80053; 81001; 82550; 82570; 82962; 83735; 83880; 84100; 84300; 84550; 85007; 85025; 93970; G0378; A9270-GY; J1650; J7030; J7512

== ENCOUNTER 2018-04-25 21:19 | Inpatient (IN) | payer MEDICARE ==
[2018-04-25] MEDS ORDERED: NACL 0.9% 1000 ML 1,000 ML IV ONE ×2 (21:40→22:42)
[2018-04-25] MEDS ORDERED: TYLENOL PO ONE (21:41)
--- NOTE | 2018-04-25 21:46 | Emergency Department Report ---
HPI - General Chief Complaint: Altered Mental Status Time Seen by Provider: 04/25/18 21:31 - HPI HPI: 77-year-old male presents to the emergency department from home with complaint of altered mental status. The patient's daughter is at bedside and says that for the past few hours the patient has become "disoriented." The patient is complaining of right shoulder pain. He has a past medical history of hypertension, hyperlipidemia, CVA with right-sided weakness. The patient was just admitted to this hospital for some right leg swelling and acute kidney injury. He follows up with Dr. Forrest Greer for primary care needs. Usually the patient walks using a maria l-walker and can perform ADLs, but recently he has become confused and weak. The daughter says that he has been complaining of some burning with urination. ED Past Medical Hx - Past Medical History Previous Medical History?: Yes Hx Hypertension: Yes Hx CVA: Yes (with right-sided weakness,walks with maria l walker,right arm flaccid) Hx Congestive Heart Failure: No Hx Diabetes: Yes Hx GERD: Yes Hx Asthma: Yes Hx COPD: No Additional medical history: elevated cholesterol - Surgical History Past Surgical History?: Yes Additional Surgical History: right knee total knee - Social History Smoking Status: Former Smoker Substance Use Type: None - Medications Home Medications: Home Medications Medication Instructions Recorded Confirmed Last Taken Type Carafate 1 gram PO DAILY 09/21/17 04/12/18 04/11/18 History Pepcid 20 mg PO DAILY 09/21/17 04/12/18 04/11/18 History Plavix 75 mg PO DAILY 09/21/17 04/12/18 04/11/18 History Simvastatin 40 mg PO HS 09/21/17 04/12/18 04/10/18 History amLODIPine 5 mg PO DAILY 09/21/17 04/12/18 04/11/18 History metFORMIN 500 mg PO DAILY 09/21/17 04/12/18 Unknown History HYDROcodone/APAP 5-325 [[place] 1 each PO Q6HR PRN #20 tablet 09/22/17 04/12/18 Unknown Rx 5-325 mg TAB] ED Review of Systems ROS: Stated complaint: BODY PAIN Other details as noted in HPI Comment: Unobtainable due to pts medical conditions Physical Exam - Physical Exam Vital Signs: Vital Signs 04/25/18 21:29 Temperature 97.8 F Pulse Rate 113 H Respiratory 33 H Rate Blood Pressure 89/54 O2 Sat by Pulse 98 Oximetry Physical Exam: GENERAL: Ill-appearing. HEENT: Normocephalic. Atraumatic. Patient has moist mucous membranes. EYES: Extraocular motions are intact. Pupils are equal and reactive to light bilaterally. NECK: Supple. Trachea is midline. CHEST/LUNGS: Clear to auscultation. There is no respiratory distress noted. HEART/CARDIOVASCULAR: Regular. There is mild tachycardia. There is no obvious murmur. ABDOMEN: Abdomen is soft, nontender. Patient has normal bowel sounds. There is no abdominal distention. SKIN: Skin is warm and dry. NEURO: Chronic right-sided hemiparesis. Patient is awake but confused. Patient answers some questions appropriately but otherwise appears disoriented. MUSCULOSKELETAL: There is no obvious deformity. There is no limitation range of motion. ED Course Vital Signs 04/25/18 21:29 Temperature 97.8 F Pulse Rate 113 H Respiratory 33 H Rate Blood Pressure 89/54 O2 Sat by Pulse 98 Oximetry - Central Line Placement Right Femoral Consent Obtained: verbal consent (From and daughter) Time Out Performed: Yes Patient Placed on Monitor/Pulse Ox: Yes MD Prep: mask, gown, gloves Central Line Prep: Chlorhexidine scrub Local Anesthesia Used: Lidocaine 1% Amount of Anesthesia Used (mls): 3 Ultrasound Used for Placement: Yes Central Line Lumen Inserted: triple Central Line Position: good blood return, all ports aspirated, flus, sutured in place with nyl Dressing Applied: Tegaderm, sterile gauze/tape Patient Tolerated Procedure: well Complications: none ED Medical Decision Making - Lab Data Result diagrams: 04/25/18 22:26 04/25/18 22:26 - EKG Data -: EKG Interpreted by Me EKG shows normal: sinus rhythm, axis, intervals, QRS complexes, ST-T waves Rate: normal - EKG Data When compared to previous EKG there are: previous EKG unavailable Interpretation: normal EKG - Radiology Data Radiology results: report reviewed, image reviewed interpreted by me: Chest x-ray shows some pulmonary vascular congestion but otherwise no pneumot horax, obvious pneumonia, pleural effusions. PROCEDURE: CT HEAD/BRAIN WO CON TECHNIQUE: Computerized tomography of the head was performed without contrast material. HISTORY: Altered Mental Status COMPARISON: 09/21/2017 FINDINGS: Skull and scalp: Normal. Paranasal sinuses: Normal. Ventricles and subarachnoid spaces: Are prominent consistent with cerebral atrophy appropriate for patient's age.. Cerebrum: Old infarcts are noted involving left basal ganglia.. There is moderate degree bilateral cerebral nonspecific white matter hypodensity. An acute intra-axial or extra- axial hemorrhage or mass effect is not identified.. Cerebellum and brainstem: No evidence of hemorrhage, acute infarction or mass. Vasculature: Atherosclerotic calcification is noted involving internal carotid and vertebral arteries.. Comments: None. IMPRESSION: No acute intracranial abnormality Old infarcts left basal ganglia Transcribed By: [facility] [place] Dictated By: OSORIO DAHL Electronically Authenticated By: OSORIO DAHL Signed Date/Time: 04/25/182222 - Medical Decision Making Patient was brought in by family from home with some altered mental status. He was found have some mild tachycardia and hypotension. CT of the head did not show any acute bleed, shift, mass, ischemia, or any other acute process. Chest x-ray did not show any pneumonia, pleural effusions, pneumothorax or focal consolidation. Patient's labs show some anemia with hemoglobin 7.9, acute on chronic renal insufficiency, slightly elevated first troponin level. Urinalysis was clean for any urinary tract infection. The patient was given multiple liters of IV fluid but continued to have hypotension. I had multiple conversations with the patient's daughter regarding the need for central line placement including risks versus benefits and possible complications. Eventually I was given verbal consent to do this procedure so that pressure could be started. Patient will be admitted to the ICU and has been accepted for admission by the hospitalist, Dr. Rodríguez. - Differential Diagnosis Sepsis, Dementia, UTI, OK Critical Care Time: Yes Critical care time in (mins) excluding proc time.: 45 Critical care attestation.: If time is entered above; I have spent that time in minutes in the direct care of this critically ill patient, excluding procedure time. There is a high probability of clinically significant, sudden, or life-threatening deterioration that has required multiple re-evaluations and my direct attention, intervention, and management. This includes ordering an interpretation of labs and imaging, ordering and administration of medications, discussion with the patient's family. This is independent from the time spent doing the central line procedure. Critical Care Time: 45 minutes ED Disposition Clinical Impression: Elevated troponin, Systemic inflammatory response syndrome Acute on chronic renal failure Qualifiers: Acute renal failure type: unspecified Chronic kidney disease stage: unspecified stage Qualified Code(s): N17.9 - Acute kidney failure, unspecified; N18.9 - Chronic kidney disease, unspecified Altered mental status Qualifiers: Altered mental status type: unspecified Qualified Code(s): R41.82 - Altered mental status, unspecified Hypotension Qualifiers: Hypotension type: unspecified hypotension type Qualified Code(s): I95.9 - Hypotension, unspecified Disposition: DC-09 OP ADMIT IP TO THIS HOSP Is pt being admited?: Yes Condition: Serious Time of Disposition: 05:50
--- NOTE | 2018-04-25 22:23 | Cat Scan Report ---
FINAL REPORT PROCEDURE: CT HEAD/BRAIN WO CON TECHNIQUE: Computerized tomography of the head was performed without contrast material. HISTORY: Altered Mental Status COMPARISON: 09/21/2017 FINDINGS: Skull and scalp: Normal. Paranasal sinuses: Normal. Ventricles and subarachnoid spaces: Are prominent consistent with cerebral atrophy appropriate for pa tient's age.. Cerebrum: Old infarcts are noted involving left basal ganglia.. There is moderate degree bilateral ce rebral nonspecific white matter hypodensity. An acute intra-axial or extra-axial hemorrhage or mass e ffect is not identified.. Cerebellum and brainstem: No evidence of hemorrhage, acute infarction or mass. Vasculature: Atherosclerotic calcification is noted involving internal carotid and vertebral arteries .. Comments: None. IMPRESSION: No acute intracranial abnormality Old infarcts left basal ganglia
[2018-04-25 22:59] LABS: Hematocrit 25.4 % (35.5-45.6); Hemoglobin 7.9 gm/dl (11.8-15.2); Mean Corpuscular HGB Conc 31 % (32-34); Platelet Count 279 K/mm3 (140-440); Red Blood Count 3.67 M/mm3 (3.65-5.03); Red Cell Distribution Width 18.8 % (13.2-15.2)
[2018-04-25 23:01] LABS: Mean Corpuscular Volume 69 fl (84-94)
[2018-04-25 23:04] LABS: Albumin 2.1 g/dL (3.9-5); Calcium 8.1 mg/dL (8.4-10.2)
[2018-04-25 23:15] LABS: Chol/HDL Ratio 3.95 %
--- NOTE | 2018-04-25 23:32 | XRay Report ---
FINAL REPORT PROCEDURE: XR CHEST 1V AP TECHNIQUE: Chest radiograph anteroposterior view. CPT 52916 HISTORY: AMS COMPARISON: No prior studies are available for comparison. FINDINGS: Heart: The heart size is slightly pronounced.. Mediastinum/Vessels: There is tortuosity of the aorta.. Lungs/Pleural space: Mild vascular congestion. Slight atelectasis right lower lung. No effusion or pn eumothorax. Bony thorax: No acute osseous abnormality. Life support devices: None. IMPRESSION: Slight vascular congestion. Mild cardiomegaly..
[2018-04-26 00:38] LABS: Band Neutrophils # (Manual) 0.3 K/mm3; Basophils % (Manual) 0 % (0.0-1.8); Eosinophils % (Manual) 0 % (0.0-4.3); Total Cells Counted 100
[2018-04-26 00:39] LABS: Anisocytosis 1+; Platelet Estimate Consistent w Auto
[2018-04-26 00:42] LABS: Bilirubin,Urine NEG (Negative); Blood,Urine NEG (Negative); Color,Urine Yellow (Yellow); Mucus,Urine FEW /HPF; Protein,Urine <15 mg/dL mg/dL (Negative); RBC,Urine < 1.0 /HPF (0.0-6.0); Urobilinogen,Urine < 2.0 mg/dL (<2.0)
[2018-04-26] MEDS ORDERED: LEVAQUIN 750MG/150ML 750 MG/150 ML BAG IV ONE (00:57)
[2018-04-26] MEDS ORDERED: ZOFRAN IV PRN (02:49)
[2018-04-26] MEDS ORDERED: NORCO 5/325 PO PRN (02:53)
[2018-04-26] MEDS ORDERED: LEVOPHED DRIP 4 MG/NS 250 ML 4 MG/250 ML BAG IV SCH (03:00)
[2018-04-26] MEDS ORDERED: D50W (25GM) Syringe IV PRN (03:10)
--- NOTE | 2018-04-26 05:37 | History and Physical Report ---
CHIEF COMPLAINT: Change in mental status. HISTORY OF PRESENT ILLNESS: The patient is a 77-year-old male noted by family to have change in mental status some hours prior to presentation. The patient also complained of pain in the right shoulder area. There is no history of fever or chills. No history of nausea or vomiting. Also, there was no history of chest pain, shortness of breath or diarrhea. There was also no history of cough. However, the daughter said the patient has been complaining of some burning sensation with urination. PAST MEDICAL HISTORY: Pertinent for hypertension, cerebrovascular accident with right-sided weakness, diabetes mellitus, gastroesophageal reflux disease, asthma, and hypercholesterolemia. PAST SURGICAL HISTORY: Pertinent for right knee surgery. FAMILY HISTORY: Noncontributory. SOCIAL HISTORY: The patient lives with family, used to smoke cigarettes sometime in the past, but does not smoke recently. Does not drink alcohol and does not use illicit drugs. MEDICATIONS: The patient is on Carafate 1 gram by mouth daily, Pepcid 20 mg by mouth daily, Plavix 75 mg by mouth daily, simvastatin 40 mg by mouth at bedtime, amlodipine 5 mg by mouth daily, metformin 500 mg by mouth daily as well as [place] 5/325 mg 1 by mouth every 6 hours as needed for pain. ALLERGIES: THE PATIENT IS ALLERGIC TO PENICILLIN. REVIEW OF SYSTEMS: CONSTITUTIONAL: There is no fever, no chills, no diaphoresis. HEENT: There is no headache or sore throat. CARDIOVASCULAR SYSTEM: There is no chest pain or orthopnea. RESPIRATORY SYSTEM: There is no shortness of breath or cough. GASTROINTESTINAL SYSTEM: There is no nausea, no vomiting, no abdominal pain, diarrhea or constipation. NEUROLOGIC SYSTEM: Change in mental status noted. No dizziness. MUSCULOSKELETAL SYSTEM: Pain in the right shoulder joint area noted. No joint swelling. DERMATOLOGICAL SYSTEM: There is no skin rash or itching. GENITOURINARY SYSTEM: There is a painful micturition with no hematuria and no flank pain. Rest of system review is normal. PHYSICAL EXAMINATION: GENERAL: At the time of exam, the patient was found to be alert and oriented to person only and not in acute distress. VITAL SIGNS: At the initial time of presentation showed temperature of 97.8 degrees Fahrenheit, pulse of 113, respiratory rate of 33, blood pressure of 89/54 with O2 sat of 98% on room air. HEENT: Pupils to be equal, round, reactive to light and accommodating. Extraocular muscles are intact. Oral mucosa looks dry. NECK: Supple with no JVD or carotid bruit. CARDIOVASCULAR SYSTEM: Showed normal first and second heart sounds with no gallops or murmur. RESPIRATORY SYSTEM: Show good air entry on both sides of the lungs with no abnormal breath sounds. GASTROINTESTINAL SYSTEM: Show abdomen to be full, soft, nontender with no organomegaly or rigidity. NEUROLOGIC: Shows no focal deficit. MUSCULOSKELETAL SYSTEM: Show no joint swelling or tenderness. DERMATOLOGICAL SYSTEM: Show no skin rash. GENITOURINARY SYSTEM: Showing no costovertebral angle tenderness. PERTINENT LABORATORY AND IMAGING STUDIES: The patient had a CT of the head without contrast done that shows no acute intracranial abnormality. Old infarct in the left basal ganglia was noted. Labs result, the patient has CBC done with normal white count, low hemoglobin of 7.9, low hematocrit of 25.4 and low MCV of 69 with CBC differential showing elevated segmented neutrophils. Chemistry: The patient's sodium level was low with a value of 131, chloride level was low with a value of 97.3, and CO2 was low with elevated BUN of 32 and elevated creatinine of 2.1. The patient's lactic acid level was unremarkable and uric acid level was high with a value of 8.8. The patient's troponin level was high with a value of 0.047 and rest of chemistry shows low albumin level of 2.1 with correspondingly low calcium level of 8.1. The patient's urinalysis was unremarkable and serum alcohol level was unremarkable. DIAGNOSES: 1. Altered mental status. 2. Hypotension. 3. Chronic kidney disease. 4. Anemia. PLAN OF ACTION: 1. The patient will be admitted to ICU. 2. The patient will have critical care consult with Dr. España for ICU admission because of hypotension. 3. The patient will have Nephrology consult with Dr. Jenny Soria because of chronic kidney disease. 4. The patient will be on IV normal saline at 125 mL an hour. 5. The patient will have cardiac enzymes involving troponin, total CK and CK-MB checked every 6 hours x 2 more levels. 6. The patient will be on p.r.n. medications like Tylenol 650 mg by mouth every 4 hours for fever and headache and will be on Zofran 4 mg IV every 8 hours for nausea and vomiting. 7. The patient will be on Levaquin 750 mg IV daily for empirical treatment for possible infection in the genitourinary system. 8. The patient will be on consistent, hydrate low sodium diet. Will be on Accu-Chek before meals and at bedtime, followed by low-dose sliding scale using regular insulin coverage. 9. The patient will be on IV Levophed, which will be titrated to keep mean arterial pressure at 65. JOB# [id number] OCN/NTS MTDD
[2018-04-26 05:50] LABS: Creatine Kinase MB 1.9 ng/mL (0.0-4.0)
--- NOTE | 2018-04-26 08:50 | Progress Note ---
Assessment and Plan Assessment and plan: Patient is a 77 yo man with a history of hypertension, CVA with right sided weakness, IDDM, dyslipidemia, GERD, Asthma, OA and recent DEVIN who presented to [facility] ED with AMS, right shoulder pains per daughter. He was admitted for hypotension, not responding to IVF resucitaion; therefore, right femoral line place in ED and admitted to ICU. Review of old records shows that patient was just discharged on 04/11/2018 after treatment of gout, right leg swelling, CHF, ARF. * CT head w/o contrast IMPRESSION: No acute intracranial abnormality, Old infarcts left basal ganglia * pCXR Impression: Slight vascular congestion, mild cardiomegaly * 04/12/2018: Moderate dilatation of left renal pelvis and seen on earlier CT suspected related to chronic UPJ obstruction, no hydonephrosis on the right, Punctate nonobstructive right renal calculus seen on CT is not visulized by ultrasound and may be obscured by renal sinus fat, punctate urinary bladder calculus seen on CT but no u/s -Hypovolemic shock suspected: on Levophed iv drip but trying to wean -Acute metabolic encephalopathy due to the above vs other -ARF/CKD 3, cr was 1.7 on 04/13/18 and now 2.1: consult Renal, treat with ivf, follow levels closely, Renal U/S on 04/12/18 -Acute on Chronic Microcytic Anemia, hgb was 9.6 on 04/12/18 and now 7.9 MCV 69: Need outpatient colonoscopy if he had one in the past -Severe malnutrition: consult Sprinkler Inspector -Hyponatremia, hypovolemia: treat with IVF/nss CCT 32 minutes History Interval history: Patient was seen and examined. Follow-up on current diagnosis of AMS. Overnight uneventful. He complains of "I can't pee" Patient denies any chest pain, shortness breath, nausea/vomiting or severe headaches. Imaging, nursing note, chart, labs and old chart reviewed. Discussed with patient. His , son Julius Yung, daughters Poly Joseph at bedside Hospitalist Physical - Physical exam Narrative exam: Gen: WDWN, NAD, Awake, lethargic Orientated x 2, missed year HEENT: NCAT, EOMI, PERRL, OP Clear Neck: supple, no adenopathy, no thyromegaly, no JVD CVS/Heart: RRR, normal S1S2, pulses present bilaterally Chest/Lungs: diminished bs bilaterally, Symmetrical chest expansion, good air entry bilaterally GI/Abdomen: soft, NTND, good bowel sounds, no guarding or rebound /Bladder: no suprapubic tenderness, no CVA or paraspinal tenderness Extermity/Skin: bilateral leg edema, no obvious rash MSK: FROM x 3 Neuro: CN 2-12 grossly intact, no new focal deficits, old right hemiparesis with dependent edema Psych: calm - Constitutional Vitals: Temp Pulse Resp BP Pulse Ox 98.7 F 83 18 108/65 100 04/26/18 08:00 04/26/18 05:19 04/26/18 05:19 04/26/18 05:19 04/26/18 07:49 Results - Labs CBC & Chem 7: 04/25/18 22:26 04/25/18 22:26 Labs: Laboratory Last Values WBC 11.0 K/mm3 (4.5-11.0) 04/25/18 22:26 RBC 3.67 M/mm3 (3.65-5.03) 04/25/18 22:26 Hgb 7.9 gm/dl (11.8-15.2) L 04/25/18 22:26 Hct 25.4 % (35.5-45.6) L 04/25/18 22:26 MCV 69 fl (84-94) L 04/25/18 22:26 MCH 22 pg (28-32) L 04/25/18 22:26 MCHC 31 % (32-34) L 04/25/18 22:26 RDW 18.8 % (13.2-15.2) H 04/25/18 22:26 Plt Count 279 K/mm3 (140-440) 04/25/18 22:26 Lymph % (Auto) [employer] 04/25/18 22:26 Collin % (Auto) [employer] 04/25/18 22:26 Eos % (Auto) [employer] Chief 04/25/18 22:26 Baso % (Auto) [employer] Chief 04/25/18 22:26 Lymph # [employer] Chief 04/25/18 22:26 Collin # [employer] Department Battalion Chief 04/25/18 22:26 Eos # [employer] Department Battalion Chief 04/25/18 22:26 Baso # [employer] Department Battalion Chief 04/25/18 22:26 Add Manual Diff Complete 04/25/18 22:26 Total Counted 100 04/25/18 22:26 Seg Neutrophils % [employer] 04/25/18 22:26 Seg Neuts % (Manual) 91.0 % (40.0-70.0) H 04/25/18 22:26 Band Neutrophils % 3.0 % 04/25/18 22:26 Lymphocytes % (Manual) 4.0 % (13.4-35.0) L 04/25/18 22:26 Reactive Lymphs % (Man) 0 % 04/25/18 22:26 Monocytes % (Manual) 2.0 % (0.0-7.3) 04/25/18 22:26 Eosinophils % (Manual) 0 % (0.0-4.3) 04/25/18 22: Basophils % (Manual) 0 % (0.0-1.8) 04/25/18 22: Metamyelocytes % 0 % 04/25/18 22: Myelocytes % 0 % 04/25/18 22: Promyelocytes % 0 % 04/25/18: Blast Cells % 0 % 04/25/18 22: Nucleated RBC % Not Reportable 04/25/18 22:26 Seg Neutrophils # [employer] 04/25/18 22:26 Seg Neutrophils # Man 10.0 K/mm3 (1.8-7.7) H 04/25/18 22: Band Neutrophils # 0.3 K/mm3 04/25/18 22: Lymphocytes # (Manual) 0.4 K/mm3 (1.2-5.4) L 04/25/18 22:26 Abs React Lymphs (Man) 0.0 K/mm3 04/25/18: Monocytes # (Manual) 0.2 K/mm3 (0.0-0.8) 04/25/18 22:26 Eosinophils # (Manual) 0.0 K/mm3 (0.0-0.4) 04/25/18 22: Basophils # (Manual) 0.0 K/mm3 (0.0-0.1) 04/25/18 22: Metamyelocytes # 0.0 K/mm3 04/25/18 22:26 Myelocytes # 0.0 K/mm3 04/25/18 22: Promyelocytes # 0.0 K/mm3 04/25/18 22:26 Blast Cells # 0.0 K/mm3 04/25/18 22:26 WBC Morphology Not Reportable 04/25/18 22:26 Hypersegmented Neuts Not Reportable 04/25/18 22:26 Hyposegmented Neuts Not Reportable 04/25/18 22:26 Hypogranular Neuts Not Reportable 04/25/18 22:26 Smudge Cells Not Reportable 04/25/18 22:26 Toxic Granulation Not Reportable 04/25/18 22:26 Toxic Vacuolation Not Reportable 04/25/18 22:26 Dohle Bodies Not Reportable 04/25/18 22:26 Pelger-Huet Anomaly Not Reportable 04/25/18 22:26 Alba Rods Not Reportable 04/25/18 22:26 Platelet Estimate Consistent w auto 04/25/18 22:26 Clumped Platelets Not Reportable 04/25/18 22:26 Plt Clumps, EDTA Not Reportable 04/25/18 22:26 Large Platelets Not Reportable 04/25/18 22:26 Giant Platelets Not Reportable 04/25/18 22:26 Platelet Satelliting Not Reportable 04/25/18 22:26 Plt Morphology Comment Not Reportable 04/25/18 22:26 RBC Morphology Not Reportable 04/25/18 22:26 Dimorphic RBCs Not Reportable 04/25/18 22:26 Polychromasia Not Reportable 04/25/18 22:26 Hypochromasia Not Reportable 04/25/18 22:26 Poikilocytosis Not Reportable 04/25/18 22:26 Anisocytosis 1+ 04/25/18 22:26 Microcytosis Not Reportable 04/25/18 22:26 Macrocytosis Not Reportable 04/25/18 22:26 Spherocytes Not Reportable 04/25/18 22:26 Pappenheimer Bodies Not Reportable 04/25/18 22:26 Sickle Cells Not Reportable 04/25/18 22:26 Target Cells Not Reportable 04/25/18 22:26 Tear Drop Cells Not Reportable 04/25/18 22:26 Ovalocytes Not Reportable 04/25/18 22:26 Helmet Cells Not Reportable 04/25/18 22:26 [place] Bodies Not Reportable 04/25/18 22:26 [place] Rings Not Reportable 04/25/18 22:26 [place] Cells Not Reportable 04/25/18 22:26 Bite Cells Not Reportable 04/25/18 22:26 Crenated Cell Not Reportable 04/25/18 22:26 Elliptocytes 1+ 04/25/18 22:26 Acanthocytes (Spur) Not Reportable 04/25/18 22:26 Rouleaux Not Reportable 04/25/18 22:26 Hemoglobin C Crystals Not Reportable 04/25/18 22:26 Schistocytes Not Reportable 04/25/18 22:26 Malaria parasites Not Reportable 04/25/18 22:26 James Bodies Not Reportable 04/25/18 22:26 Hem Pathologist Commnt No 04/25/18 22:26 Sodium 131 mmol/L (137-145) L 04/25/18 22:26 Potassium 4.4 mmol/L (3.6-5.0) 04/25/18 22:26 Chloride 97.3 mmol/L (98-107) L 04/25/18 22:26 Carbon Dioxide 21 mmol/L (22-30) L 04/25/18 22:26 Anion Gap 17 mmol/L 04/25/18 22:26 BUN 32 mg/dL (9-20) H 04/25/18 22:26 Creatinine 2.1 mg/dL (0.8-1.5) H 04/25/18 22:26 Estimated GFR 37 ml/min 04/25/18 22:26 BUN/Creatinine Ratio 15 % 04/25/18 22:26 Glucose 159 mg/dL (75-100) H 04/25/18 22:26 POC Glucose 191 (70-105) H 04/25/18 21:41 Lactic Acid 1.00 mmol/L (0.7-2.0) 04/26/18 03:04 Uric Acid 8.6 mg/dL (3.5-7.6) H 04/26/18 00:26 Calcium 8.1 mg/dL (8.4-10.2) L 04/25/18 22:26 Total Bilirubin 0.30 mg/dL (0.1-1.2) 04/25/18 22:26 AST 14 units/L (5-40) 04/25/18 22:26 ALT 14 units/L (7-56) 04/25/18 22:26 Alkaline Phosphatase 108 units/L (35-129) 04/25/18 22:26 Ammonia 20.0 umol/L (25-60) L 04/25/18 22:26 Total Creatine Kinase 24 units/L (55-170) L 04/26/18 05:27 CK-MB (CK-2) 1.9 ng/mL (0.0-4.0) 04/26/18 05:27 CK-MB (CK-2) Rel Index 7.9 (0-4) H 04/26/18 05:27 Troponin T 0.058 ng/mL (0.00-0.029) H D 04/26/18 05:27 Total Protein 6.4 g/dL (6.3-8.2) 04/25/18 22:26 Albumin 2.1 g/dL (3.9-5) L 04/25/18 22:26 Albumin/Globulin Ratio 0.5 % 04/25/18 22:26 Triglycerides 89 mg/dL (2-149) 04/25/18 22:26 Cholesterol 91 mg/dL (50-199) 04/25/18 22:26 LDL Cholesterol Direct 59 mg/dL (50-130) 04/25/18 22:26 HDL Cholesterol 23 mg/dL (40-59) L 04/25/18 22:26 Cholesterol/HDL Ratio 3.95 % 04/25/18 22:26 TSH 1.510 mlU/mL (0.270-4.200) 04/25/18 22:26 Urine Color Yellow (Yellow) 04/26/18 00:11 Urine Turbidity Clear (Clear) 04/26/18 00:11 Urine pH 5.0 (5.0-7.0) 04/26/18 00:11 Ur Specific [place] 1.006 (1.003-1.030) 04/26/18 00:11 Urine Protein <15 mg/dl mg/dL (Negative) 04/26/18 00:11 Urine Glucose (UA) Neg mg/dL (Negative) 04/26/18 00:11 Urine Ketones Neg mg/dL (Negative) 04/26/18 00:11 Urine Blood Neg (Negative) 04/26/18 00:11 Urine Nitrite Neg (Negative) 04/26/18 00:11 Urine Bilirubin Neg (Negative) 04/26/18 00:11 Urine Urobilinogen < 2.0 mg/dL (<2.0) 04/26/18 00:11 Ur Leukocyte Esterase Neg (Negative) 04/26/18 00:11 Urine WBC (Auto) 1.0 /HPF (0.0-6.0) 04/26/18 00:11 Urine RBC (Auto) < 1.0 /HPF (0.0-6.0) 04/26/18 00:11 Urine Mucus Few /HPF 04/26/18 00:11 Plasma/Serum Alcohol < 0.01 % (0-0.07) 04/25/18 22:26
[2018-04-26] MEDS: HumuLIN R SUB-Q SCH ×4 (09:30→22:19)
[2018-04-26] MEDS ORDERED: HEPARIN SUB-Q SCH (10:00)
[2018-04-26] MEDS ORDERED: NON-FORMULARY (Pepcid 20 MG) PO SCH (10:00)
[2018-04-26] MEDS ORDERED: NON-FORMULARY (Plavix 75 MG) PO SCH (10:00)
[2018-04-26] MEDS ORDERED: LEVAQUIN 750MG/150ML 750 MG/150 ML BAG IV SCH (10:00)
[2018-04-26] MEDS ORDERED: SUCRALFATE 1 GM PO SCH (10:00)
[2018-04-26] MEDS: PLAVIX PO SCH (10:58)
[2018-04-26] MEDS: PEPCID PO SCH (10:58)
[2018-04-26] MEDS: CARAFATE PO SCH (10:58)
[2018-04-26 14:26] LABS: Creatine Kinase MB 1.8 ng/mL (0.0-4.0)
[2018-04-26 18:46] LABS: Bilirubin,Urine NEG (Negative); Blood,Urine MOD (Negative); Color,Urine Yellow (Yellow); Mucus,Urine FEW /HPF; Protein,Urine <15 mg/dL mg/dL (Negative); Urobilinogen,Urine < 2.0 mg/dL (<2.0)
[2018-04-26 18:51] LABS: Creatinine,Urine 62.1 mg/dL (0.1-20.0); Fractional Sodium Excretion 2.3
[2018-04-26] MEDS ORDERED: NON-FORMULARY (Simvastatin 40 MG) PO SCH (22:00)
[2018-04-26] MEDS: PRAVACHOL PO SCH (22:02)
[2018-04-26] MEDS: NACL 0.9% 1000 ML 1,000 ML IV SCH (22:21)
[2018-04-27 07:00] LABS: Calcium 7.4 mg/dL (8.4-10.2)
[2018-04-27] MEDS: NACL 0.9% 1000 ML 1,000 ML IV SCH ×2 (07:00→17:33)
[2018-04-27] MEDS: HumuLIN R SUB-Q SCH ×4 (08:25→22:47)
--- NOTE | 2018-04-27 08:47 | Event Note ---
Date: 04/27/18 Came to see patient. Patient already established with Dr. Contreras. Change consult to him.. Notified Dr. Contreras .
[2018-04-27] MEDS ORDERED: LEVAQUIN 750MG/150ML 750 MG/150 ML BAG IV SCH (10:00)
--- NOTE | 2018-04-27 10:55 | Consultation ---
History of Present Illness Consult date: 04/27/18 Reason for consult: other (hypotension,CCM care) History of present illness: Called to see case of a 77-year-old -[place] male, who presented to the ED with hypotension and AMS. The patient reportedly a former smoker and presented to the ER slightly confused with low blood pressure. He was dialyzed and reportedly admitted initially to the ICU at [facility]. Were called to evaluate but since then the patient was transferred outside to the medical basurto. He denies any chest pain prior to admission or at this time. EKG reportedly unremarkable for acute ischemia. No shortness of breath reported at this time. No wheezing. He is a former smoker. Family of the bedside. No additional complaints reported. Medications and Allergies Allergies Allergy/AdvReac Type Severity Reaction Status Date / Time Penicillins Allergy Unknown Verified 04/11/18 16:00 Home Medications Medication Instructions Recorded Confirmed Last Taken Type Clopidogrel Bisulfate [Plavix] 75 mg PO DAILY #0 09/21/17 04/26/18 04/24/18 12:00 History Famotidine [Pepcid] 20 mg PO DAILY #0 09/21/17 04/26/18 04/24/18 History 20mg Simvastatin 40 mg PO HS 09/21/17 04/26/18 04/24/18 08:00 History 20 mg Sucralfate [Carafate] 1 gram PO DAILY #0 09/21/17 04/26/18 04/24/18 12:00 History 1 gm amLODIPine 5 mg PO DAILY 09/21/17 04/26/18 04/24/18 21:00 History 5 mg Losartan [Cozaar] 100 mg PO QDAY 04/26/18 04/26/18 04/24/18 21:00 History Spironolactone [Aldactone] 25 mg PO QDAY 04/26/18 04/26/18 04/24/18 08:00 History Torsemide [Demadex] 2.5 mg PO 3XW 04/26/18 04/26/18 Unknown History Active Meds: Active Medications Acetaminophen (Tylenol) 650 mg PO Q4H PRN PRN Reason: Fever >101 Acetaminophen/Hydrocodone Bitart ([place] 5/325) 1 each PO Q6HR PRN PRN Reason: Pain Last Admin: 04/26/18 10:58 Dose: 1 each Documented by: Clopidogrel Bisulfate (Plavix) 75 mg PO DAILY [facility] Last Admin: 04/26/18 10:58 Dose: 75 mg Documented by: Dextrose (D50w (25gm) Syringe) 50 ml IV PRN PRN PRN Reason: Hypoglycemia Famotidine (Pepcid) 20 mg PO DAILY [facility] Last Admin: 04/26/18 10:58 Dose: 20 mg Documented by: Sodium Chloride (Nacl 0.9% 1000 Ml) 1,000 mls @ 125 mls/hr IV DIRECT FREDI Last Admin: 04/27/18 07:00 Dose: 125 mls/hr Documented by: Norepinephrine (Levophed Drip 4 Mg/Ns 250 Ml) 4 mg in 250 mls @ 7.5 mls/hr IV TITR [facility]; Protocol Last Titration: 04/26/18 08:15 Dose: 0 mcg/min, 0 mls/hr Documented by: Levofloxacin/Dextrose (Levaquin 750mg/150ml) 750 mg in 150 mls @ 100 mls/hr IV Q48HR [facility]; Protocol Insulin Human Regular (Humulin R) 0 units SUB-Q AC [facility]; Protocol Last Admin: 04/27/18 08:25 Dose: Not Given Documented by: Insulin Human Regular (Humulin R) 0 units SUB-Q QHS [facility]; Protocol Last Admin: 04/26/18 22:19 Dose: Not Given Documented by: Ondansetron HCl (Zofran) 4 mg IV Q8H PRN PRN Reason: Nausea And Vomiting Pravastatin Sodium (Pravachol) 80 mg PO QHS [facility] Last Admin: 04/26/18 22:02 Dose: 80 mg Documented by: Sucralfate (Carafate) 1 gm PO DAILY [facility] Last Admin: 04/26/18 10:58 Dose: 1 gm Documented by: Review of Systems Constitutional: fatigue Physical Examination Vital signs: Vital Signs Temp Pulse Resp BP Pulse Ox 97.8 F 113 H 33 H 89/54 98 04/25/18 21:29 04/25/18 21:29 04/25/18 21:29 04/25/18 21:29 04/25/18 21:29 General appearance: no acute distress, alert Eyes: non-icteric ENT: oropharynx moist Neck: supple, no JVD Ascultation: Bilateral: clear, diminished breath sounds, other (faint end inspiratory crackles anteriorly) Cardiovascular: regular rate and rhythm Gastrointestinal: normoactive bowel sounds, non-distended Integumentary: normal Extremities: no cyanosis normal mental status, non-focal exam mood appropriate, affect normal Results - Laboratory Findings CBC and BMP: 04/28/18 04:48 04/28/18 04:48 Abnormal lab findings: Abnormal Labs 04/25/18 04/25/18 04/25/18 21:41 22:26 22:26 Hgb 7.9 L Hct 25.4 L MCV 69 L MCH 22 L MCHC 31 L RDW 18.8 H Seg Neuts % (Manual) 91.0 H Lymphocytes % (Manual) 4.0 L Seg Neutrophils # Man 10.0 H Lymphocytes # (Manual) 0.4 L Sodium 131 L Chloride 97.3 L Carbon Dioxide 21 L BUN 32 H Creatinine 2.1 H Glucose 159 H POC Glucose 191 H Uric Acid Calcium 8.1 L Ammonia Total Creatine Kinase CK-MB (CK-2) Rel Index Troponin T 0.047 H Albumin 2.1 L HDL Cholesterol 23 L Urine WBC (Auto) Urine Creatinine 04/25/18 04/26/18 04/26/18 22:26 00:26 05:27 Hgb Hct MCV MCH MCHC RDW Seg Neuts % (Manual) Lymphocytes % (Manual) Seg Neutrophils # Man Lymphocytes # (Manual) Sodium Chloride Carbon Dioxide BUN Creatinine Glucose POC Glucose Uric Acid 8.6 H Calcium Ammonia 20.0 L Total Creatine Kinase 24 L CK-MB (CK-2) Rel Index 7.9 H Troponin T 0.058 H D Albumin HDL Cholesterol Urine WBC (Auto) Urine Creatinine 04/26/18 04/26/18 04/26/18 07:39 11:36 13:54 Hgb Hct MCV MCH MCHC RDW Seg Neuts % (Manual) Lymphocytes % (Manual) Seg Neutrophils # Man Lymphocytes # (Manual) Sodium Chloride Carbon Dioxide BUN Creatinine Glucose POC Glucose 136 H 133 H Uric Acid Calcium Ammonia Total Creatine Kinase 24 L CK-MB (CK-2) Rel Index 7.5 H Troponin T Albumin HDL Cholesterol Urine WBC (Auto) Urine Creatinine 04/26/18 04/26/18 04/26/18 15:52 16:50 16:57 Hgb Hct MCV MCH MCHC RDW Seg Neuts % (Manual) Lymphocytes % (Manual) Seg Neutrophils # Man Lymphocytes # (Manual) Sodium Chloride Carbon Dioxide BUN Creatinine 1.6 H Glucose POC Glucose 123 H 109 H Uric Acid Calcium Ammonia Total Creatine Kinase CK-MB (CK-2) Rel Index Troponin T Albumin HDL Cholesterol Urine WBC (Auto) Urine Creatinine 04/26/18 04/26/18 04/27/18 18:29 18:29 06:12 Hgb Hct MCV MCH MCHC RDW Seg Neuts % (Manual) Lymphocytes % (Manual) Seg Neutrophils # Man Lymphocytes # (Manual) Sodium Chloride 111.4 H Carbon Dioxide 19 L BUN 23 H Creatinine Glucose POC Glucose Uric Acid Calcium 7.4 L Ammonia Total Creatine Kinase CK-MB (CK-2) Rel Index Troponin T Albumin HDL Cholesterol Urine WBC (Auto) 17.0 H Urine Creatinine 62.1 H Assessment and Plan Hypotension episode. Asked to see due to possible ICU care. Resolved AMS. Appears to be more oriented now. Profoundly, currently improved back to baseline CAD Hypertension Recommendations Continue vital sign monitoring. Cardiology evaluation He may have underlying COPD based on history or physical exam. At this point appears to be compensated Monitor oximetry ambulate patient as tolerated. DVT prophylaxis Will sign off. Feel free to reconsult if needed Thanks
[2018-04-27] MEDS: PLAVIX PO SCH (11:00)
[2018-04-27] MEDS: CARAFATE PO SCH (11:01)
[2018-04-27] MEDS: PEPCID PO SCH (11:01)
--- NOTE | 2018-04-27 11:15 | Progress Note ---
Assessment and Plan Assessment and plan: Patient is a 77 yo man with a history of hypertension, CVA with right sided weakness, IDDM, dyslipidemia, GERD, Asthma, OA and recent DEVIN who presented to [facility] ED with AMS, right shoulder pains per daughter. He was admitted for hypotension, not responding to IVF resuscitation; therefore, right femoral line place in ED and admitted to ICU. Review of old records shows that patient was just discharged on 04/11/2018 after treatment of gout, right leg swelling, CHF, ARF. * CT head w/o contrast IMPRESSION: No acute intracranial abnormality, Old infarcts left basal ganglia * pCXR Impression: Slight vascular congestion, mild cardiomegaly * 04/12/2018 (prior admission) CT abd/pelvis wo contrast IMPRESSION: No mass identified within the abdomen and pelvis to expanding right-sided lower extremity swelling. Nonspecific patchy nodular opacities at the lung bases and trace effusions concerning for edema versus infection. 3 millimeter nonobstructive right renal calculus. Punctate calculus at the posterior right margin the urinary bladder. Moderate dilatation of left renal pelvis suspected be on a chronic basis related to chronic UPJ obstruction. No other gross acute findings. * 04/12/2018 (prior admission) Renal Ultrasound IMPRESSION: Moderate dilatation of left renal pelvis and seen on earlier CT suspected relate to chronic UPJ obstruction. No gross focal renal lesion hydronephrosis on the right. Punctate nonobstructive right renal calculus seen on earlier CT is not visualized by ultrasound and may be obscured by renal sinus fat. Punctate urinary bladder calculus seen on CT is not visualized by ultrasound. 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 Bowie, he will see. Since the durán placed, Renal function normalizing and confusion is resolving History Interval history: Patient was seen and examined. Follow-up on current diagnosis of AMS. Overnight uneventful. He complained of "I can't pee" Patient denies any chest pain, shortness breath, nausea/vomiting or severe headaches. Imaging, nursing note, chart, labs and old chart reviewed. Discussed with patient. His daughters Danett at bedside Hospitalist Physical - Physical exam Narrative exam: Gen: WDWN, NAD, Awake, Awake Orientated x 3 with hints, improved HEENT: NCAT, EOMI, PERRL, OP Clear Neck: supple, no adenopathy, no thyromegaly, no JVD CVS/Heart: RRR, normal S1S2, pulses present bilaterally Chest/Lungs: diminished bs bilaterally, Symmetrical chest expansion, good air entry bilaterally GI/Abdomen: soft, NTND, good bowel sounds, no guarding or rebound /Bladder: no suprapubic tenderness, no CVA or paraspinal tenderness Extermity/Skin: bilateral leg edema, no obvious rash MSK: FROM x 3 Neuro: CN 2-12 grossly intact, no new focal deficits, old right hemiparesis with dependent edema Psych: calm - Constitutional Vitals: Temp Pulse Resp BP Pulse Ox 99.3 F 109 H 18 106/62 95 04/27/18 07:45 04/27/18 08:43 04/27/18 07:45 04/27/18 07:45 04/27/18 08:43 Results - Labs CBC & Chem 7: 04/25/18 22:26 04/27/18 06:12 Labs: Laboratory Last Values WBC 11.0 K/mm3 (4.5-11.0) 04/25/18 22:26 RBC 3.67 M/mm3 (3.65-5.03) 04/25/18 22:26 Hgb 7.9 gm/dl (11.8-15.2) L 04/25/18 22:26 Hct 25.4 % (35.5-45.6) L 04/25/18 22:26 MCV 69 fl (84-94) L 04/25/18 22:26 MCH 22 pg (28-32) L 04/25/18 22:26 MCHC 31 % (32-34) L 04/25/18 22:26 RDW 18.8 % (13.2-15.2) H 04/25/18 22:26 Plt Count 279 K/mm3 (140-440) 04/25/18 22:26 Lymph % (Auto) Environmental Lawyer 04/25/18 22:26 [place] % (Auto) Environmental Lawyer 04/25/18 22:26 Eos % (Auto) Environmental Lawyer 04/25/18 22:26 Baso % (Auto) Environmental Lawyer 04/25/18 22:26 Lymph # Environmental Lawyer 04/25/18 22:26 [place] # Environmental Lawyer 04/25/18 22:26 Eos # Environmental Lawyer 04/25/18 22:26 Baso # Environmental Lawyer 04/25/18 22:26 Add Manual Diff Complete 04/25/18 22: Total Counted 100 04/25/18 22:26 Seg Neutrophils % Environmental Lawyer 04/25/18 22:26 Seg Neuts % (Manual) 91.0 % (40.0-70.0) H 04/25/18 22:26 Band Neutrophils % 3.0 % 04/25/18 22:26 Lymphocytes % (Manual) 4.0 % (13.4-35.0) L 04/25/18 22:26 Reactive Lymphs % (Man) 0 % 04/25/18 22:26 Monocytes % (Manual) 2.0 % (0.0-7.3) 04/25/18 22:26 Eosinophils % (Manual) 0 % (0.0-4.3) 04/25/18 22:26 Basophils % (Manual) 0 % (0.0-1.8) 04/25/18 22:26 Metamyelocytes % 0 % 04/25/18 22:26 Myelocytes % 0 % 04/25/18 22:26 Promyelocytes % 0 % 04/25/18 22:26 Blast Cells % 0 % 04/25/18 22:26 Nucleated RBC % Not Reportable 04/25/18 22:26 Seg Neutrophils # Environmental Lawyer 04/25/18 22:26 Seg Neutrophils # Man 10.0 K/mm3 (1.8-7.7) H 04/25/18 22:26 Band Neutrophils # 0.3 K/mm3 04/25/18 22:26 Lymphocytes # (Manual) 0.4 K/mm3 (1.2-5.4) L 04/25/18 22:26 Abs React Lymphs (Man) 0.0 K/mm3 04/25/18 22:26 Monocytes # (Manual) 0.2 K/mm3 (0.0-0.8) 04/25/18 22:26 Eosinophils # (Manual) 0.0 K/mm3 (0.0-0.4) 04/25/18 22:26 Basophils # (Manual) 0.0 K/mm3 (0.0-0.1) 04/25/18 22:26 Metamyelocytes # 0.0 K/mm3 04/25/18 22:26 Myelocytes # 0.0 K/mm3 04/25/18 22:26 Promyelocytes # 0.0 K/mm3 04/25/18 22:26 Blast Cells # 0.0 K/mm3 04/25/18 22:26 WBC Morphology Not Reportable 04/25/18 22:26 Hypersegmented Neuts Not Reportable 04/25/18 22:26 Hyposegmented Neuts Not Reportable 04/25/18 22:26 Hypogranular Neuts Not Reportable 04/25/18 22:26 Smudge Cells Not Reportable 04/25/18 22:26 Toxic Granulation Not Reportable 04/25/18 22:26 Toxic Vacuolation Not Reportable 04/25/18 22:26 Dohle Bodies Not Reportable 04/25/18 22:26 Pelger-Huet Anomaly Not Reportable 04/25/18 22:26 Alba Rods Not Reportable 04/25/18 22:26 Platelet Estimate Consistent w auto 04/25/18 22:26 Clumped Platelets Not Reportable 04/25/18 22:26 Plt Clumps, EDTA Not Reportable 04/25/18 22:26 Large Platelets Not Reportable 04/25/18 22:26 Giant Platelets Not Reportable 04/25/18 22:26 Platelet Satelliting Not Reportable 04/25/18 22:26 Plt Morphology Comment Not Reportable 04/25/18 22:26 RBC Morphology Not Reportable 04/25/18 22:26 Dimorphic RBCs Not Reportable 04/25/18 22:26 Polychromasia Not Reportable 04/25/18 22:26 Hypochromasia Not Reportable 04/25/18 22:26 Poikilocytosis Not Reportable 04/25/18 22:26 Anisocytosis 1+ 04/25/18 22:26 Microcytosis Not Reportable 04/25/18 22:26 Macrocytosis Not Reportable 04/25/18 22:26 Spherocytes Not Reportable 04/25/18 22:26 Pappenheimer Bodies Not Reportable 04/25/18 22:26 Sickle Cells Not Reportable 04/25/18 22:26 Target Cells Not Reportable 04/25/18 22:26 Tear Drop Cells Not Reportable 04/25/18 22:26 Ovalocytes Not Reportable 04/25/18 22:26 Helmet Cells Not Reportable 04/25/18 22:26 Mccoy-Winslow Bodies Not Reportable 04/25/18 22:26 Haughton Rings Not Reportable 04/25/18 22:26 Jazmin Cells Not Reportable 04/25/18 22:26 Bite Cells Not Reportable 04/25/18 22:26 Crenated Cell Not Reportable 04/25/18 22:26 Elliptocytes 1+ 04/25/18 22:26 Acanthocytes (Spur) Not Reportable 04/25/18 22:26 Rouleaux Not Reportable 04/25/18 22:26 Hemoglobin C Crystals Not Reportable 04/25/18 22:26 Schistocytes Not Reportable 04/25/18 22:26 Malaria parasites Not Reportable 04/25/18 22:26 James Bodies Not Reportable 04/25/18 22:26 Hem Pathologist Commnt No 04/25/18 22:26 Sodium 142 mmol/L (137-145) 04/27/18 06:12 Potassium 4.8 mmol/L (3.6-5.0) 04/27/18 06:12 Chloride 111.4 mmol/L (98-107) H 04/27/18 06:12 Carbon Dioxide 19 mmol/L (22-30) L 04/27/18 06:12 Anion Gap 16 mmol/L 04/27/18 06:12 BUN 23 mg/dL (9-20) H 04/27/18 06:12 Creatinine 1.5 mg/dL (0.8-1.5) 04/27/18 06:12 Estimated GFR 55 ml/min 04/27/18 06:12 BUN/Creatinine Ratio 15 % 04/27/18 06:12 Glucose 94 mg/dL (75-100) 04/27/18 06:12 POC Glucose 94 (70-105) 04/27/18 07:50 Lactic Acid 1.00 mmol/L (0.7-2.0) 04/26/18 03:04 Uric Acid 8.6 mg/dL (3.5-7.6) H 04/26/18 00:26 Calcium 7.4 mg/dL (8.4-10.2) L 04/27/18 06:12 Total Bilirubin 0.30 mg/dL (0.1-1.2) 04/25/18 22:26 AST 14 units/L (5-40) 04/25/18 22:26 ALT 14 units/L (7-56) 04/25/18 22:26 Alkaline Phosphatase 108 units/L (35-129) 04/25/18 22:26 Ammonia 20.0 umol/L (25-60) L 04/25/18 22:26 Total Creatine Kinase 24 units/L (55-170) L 04/26/18 13:54 CK-MB (CK-2) 1.8 ng/mL (0.0-4.0) 04/26/18 13:54 CK-MB (CK-2) Rel Index 7.5 (0-4) H 04/26/18 13:54 Troponin T 0.020 ng/mL (0.00-0.029) 04/26/18 13:54 Total Protein 6.4 g/dL (6.3-8.2) 04/25/18 22:26 Albumin 2.1 g/dL (3.9-5) L 04/25/18 22:26 Albumin/Globulin Ratio 0.5 % 04/25/18 22:26 Triglycerides 89 mg/dL (2-149) 04/25/18 22:26 Cholesterol 91 mg/dL (50-199) 04/25/18 22:26 LDL Cholesterol Direct 59 mg/dL (50-130) 04/25/18 22:26 HDL Cholesterol 23 mg/dL (40-59) L 04/25/18 22:26 Cholesterol/HDL Ratio 3.95 % 04/25/18 22:26 TSH 1.510 mlU/mL (0.270-4.200) 04/25/18 22:26 Urine Color Yellow (Yellow) 04/26/18 18:29 Urine Turbidity Clear (Clear) 04/26/18 18:29 Urine pH 5.0 (5.0-7.0) 04/26/18 18:29 Ur Specific [place] 1.008 (1.003-1.030) 04/26/18 18:29 Urine Protein <15 mg/dl mg/dL (Negative) 04/26/18 18:29 Urine Glucose (UA) Neg mg/dL (Negative) 04/26/18 18:29 Urine Ketones Tr mg/dL (Negative) 04/26/18 18:29 Urine Blood Mod (Negative) 04/26/18 18:29 Urine Nitrite Neg (Negative) 04/26/18 18:29 Urine Bilirubin Neg (Negative) 04/26/18 18:29 Urine Urobilinogen < 2.0 mg/dL (<2.0) 04/26/18 18:29 Ur Leukocyte Esterase Mod (Negative) 04/26/18 18:29 Urine WBC (Auto) 17.0 /HPF (0.0-6.0) H 04/26/18 18:29 Urine RBC (Auto) 64.0 /HPF (0.0-6.0) 04/26/18 18:29 U Epithel Cells (Auto) < 1.0 /HPF (0-13.0) 04/26/18 18:29 Urine Mucus Few /HPF 04/26/18 18:29 Urine Eosinophils 3% (None Seen) 04/26/18 18:29 Urine Creatinine 62.1 mg/dL (0.1-20.0) H 04/26/18 18:29 Urine Sodium 101 mmol/L 04/26/18 18:29 Fraction Sodium Excret 2.3 04/26/18 18:29 Plasma/Serum Alcohol < 0.01 % (0-0.07) 04/25/18 22:26
--- NOTE | 2018-04-27 14:47 | Progress Note ---
Assessment and Plan dictated urine clear needs w/u post cva prev hydro recheck ct Subjective Date of service: 04/27/18 Principal diagnosis: retention Objective - Constitutional Vitals: Vital Signs - 12hr 04/27/18 04/27/18 04/27/18 07:28 07:45 08:43 Temperature 99.3 F Pulse Rate 109 H Pulse Rate [ 109 H From Monitor] Respiratory 18 Rate Blood Pressure 106/62 O2 Sat by Pulse 96 95 95 Oximetry General appearance: Present: no acute distress - Neck Neck: supple - Respiratory Respiratory effort: normal - Gastrointestinal General gastrointestinal: Present: soft, non-tender - Labs CBC & Chem 7: 04/25/18 22:26 04/27/18 06:12 Labs: Abnormal lab results 04/26/18 04/26/18 04/26/18 Range/Units 13:54 15:52 16:50 Chloride (98-107) mmol/L Carbon Dioxide (22-30) mmol/L BUN (9-20) mg/dL Creatinine (0.8-1.5) mg/dL POC Glucose 123 H 109 H (70-105) Calcium (8.4-10.2) mg/dL Total Creatine Kinase 24 L (55-170) units/L CK-MB (CK-2) Rel Index 7.5 H (0-4) Urine WBC (Auto) (0.0-6.0) /HPF Urine Creatinine (0.1-20.0) mg/dL 04/26/18 04/26/18 04/26/18 Range/Units 16:57 18:29 18:29 Chloride (98-107) mmol/L Carbon Dioxide (22-30) mmol/L BUN (9-20) mg/dL Creatinine 1.6 H (0.8-1.5) mg/dL POC Glucose (70-105) Calcium (8.4-10.2) mg/dL Total Creatine Kinase (55-170) units/L CK-MB (CK-2) Rel Index (0-4) Urine WBC (Auto) 17.0 H (0.0-6.0) /HPF Urine Creatinine 62.1 H (0.1-20.0) mg/dL 04/27/18 04/27/18 Range/Units 06:12 11:52 Chloride 111.4 H (98-107) mmol/L Carbon Dioxide 19 L (22-30) mmol/L BUN 23 H (9-20) mg/dL Creatinine (0.8-1.5) mg/dL POC Glucose 148 H (70-105) Calcium 7.4 L (8.4-10.2) mg/dL Total Creatine Kinase (55-170) units/L CK-MB (CK-2) Rel Index (0-4) Urine WBC (Auto) (0.0-6.0) /HPF Urine Creatinine (0.1-20.0) mg/dL Medications & Allergies - Medications Allergies/Adverse Reactions: Allergies Penicillins Allergy (Verified 04/11/18 16:00) Unknown Home Medications: Home Medications Medication Instructions Recorded Confirmed Last Taken Type Clopidogrel Bisulfate [Plavix] 75 mg PO DAILY #0 09/21/17 04/26/18 04/24/18 12:00 History Famotidine [Pepcid] 20 mg PO DAILY #0 09/21/17 04/26/18 04/24/18 History 20mg Simvastatin 40 mg PO HS 09/21/17 04/26/18 04/24/18 08:00 History 20 mg Sucralfate [Carafate] 1 gram PO DAILY #0 09/21/17 04/26/18 04/24/18 12:00 History 1 gm amLODIPine 5 mg PO DAILY 09/21/17 04/26/18 04/24/18 21:00 History 5 mg Losartan [Cozaar] 100 mg PO QDAY 04/26/18 04/26/18 04/24/18 21:00 History Spironolactone [Aldactone] 25 mg PO QDAY 04/26/18 04/26/18 04/24/18 08:00 History Torsemide [Demadex] 2.5 mg PO 3XW 04/26/18 04/26/18 Unknown History Active Medications: Generic Name Dose Route Start Last Admin Trade Name Freq PRN Reason Stop Dose Admin Acetaminophen 650 mg 04/26/18 02:48 Tylenol PO Q4H PRN Fever >101 Acetaminophen/Hydrocodone Bitart 1 each 04/26/18 02:53 04/26/18 10:58 Rosebud 5/325 PO 1 each Q6HR PRN Administration Pain Clopidogrel Bisulfate 75 mg 04/26/18 10:00 04/27/18 11:00 Plavix PO 75 mg DAILY FREDI Administration Dextrose 50 ml 04/26/18 03:10 D50w (25gm) Syringe IV PRN PRN Hypoglycemia Famotidine 20 mg 04/26/18 10:00 04/27/18 11:01 Pepcid PO 20 mg DAILY FREDI Administration Sodium Chloride 1,000 mls @ 125 mls/hr 04/26/18 03:00 04/27/18 07:00 Nacl 0.9% 1000 Ml IV 125 mls/hr DIRECT FREDI Administration Norepinephrine 4 mg in 250 mls @ 7.5 mls/hr 04/26/18 03:00 04/26/18 08:15 Levophed Drip 4 Mg/Ns 250 Ml IV 0 mcg/min TITR FREDI 0 mls/hr Titration Protocol 2 MCG/MIN Levofloxacin/Dextrose 750 mg in 150 mls @ 100 mls/hr 04/27/18 10:00 04/27/18 11:01 Levaquin 750mg/150ml IV 100 mls/hr Q48HR FREDI Administration Protocol Insulin Human Regular 0 units 04/26/18 07:30 04/27/18 08:25 Humulin R SUB-Q Not Given AC FREDI Protocol Insulin Human Regular 0 units 04/26/18 22:00 04/26/18 22:19 Humulin R SUB-Q Not Given QHS FREDI Protocol Ondansetron HCl 4 mg 04/26/18 02:49 Zofran IV Q8H PRN Nausea And Vomiting Pravastatin Sodium 80 mg 04/26/18 22:00 04/26/18 22:02 Pravachol PO 80 mg QHS FREDI Administration Sucralfate 1 gm 04/26/18 10:00 04/27/18 11:01 Carafate PO 1 gm DAILY FREDI Administration
--- NOTE | 2018-04-27 14:51 | Consultation ---
History of Present Illness - Reason for Consult Consult date: 04/27/18 acute renal failure, chronic renal failure - History of Present Illness The patient is a 77 YO male with history significant for Hypertension, HLD, Obesity, CVA with right-sided weakness, GERD, Asthma, OA, ?Gout, CKD and recent DEVIN who was presented to [facility] ED with AMS and right shoulder pain. Patient was not able to provide any history and information was obtained from family members and previous documentation. On arrival to ER his BP was arouns 70/40 and heart rate arouns 110. The patient was discharged on 04/11/2018 after treatment of gout, right leg swelling, CHF and DEVIN. On admission his creatinine was 2.1. N ephrology was consulted for further evaluation. Past History Past Medical History: hypertension, hyperlipidemia, renal failure, stroke Medications and Allergies Allergies Allergy/AdvReac Type Severity Reaction Status Date / Time Penicillins Allergy Unknown Verified 04/11/18 16:00 Home Medications Medication Instructions Recorded Confirmed Last Taken Type Clopidogrel Bisulfate [Plavix] 75 mg PO DAILY #0 09/21/17 04/26/18 04/24/18 12:00 History Famotidine [Pepcid] 20 mg PO DAILY #0 09/21/17 04/26/18 04/24/18 History 20mg Simvastatin 40 mg PO HS 09/21/17 04/26/18 04/24/18 08:00 History 20 mg Sucralfate [Carafate] 1 gram PO DAILY #0 09/21/17 04/26/18 04/24/18 12:00 History 1 gm amLODIPine 5 mg PO DAILY 09/21/17 04/26/18 04/24/18 21:00 History 5 mg Losartan [Cozaar] 100 mg PO QDAY 04/26/18 04/26/18 04/24/18 21:00 History Spironolactone [Aldactone] 25 mg PO QDAY 04/26/18 04/26/18 04/24/18 08:00 History Torsemide [Demadex] 2.5 mg PO 3XW 04/26/18 04/26/18 Unknown History Active Meds: Active Medications Acetaminophen (Tylenol) 650 mg PO Q4H PRN PRN Reason: Fever >101 Acetaminophen/Hydrocodone Bitart ([place] 5/325) 1 each PO Q6HR PRN PRN Reason: Pain Last Admin: 04/26/18 10:58 Dose: 1 each Documented by: Clopidogrel Bisulfate (Plavix) 75 mg PO DAILY [facility] Last Admin: 04/27/18 11:00 Dose: 75 mg Documented by: Dextrose (D50w (25gm) Syringe) 50 ml IV PRN PRN PRN Reason: Hypoglycemia Famotidine (Pepcid) 20 mg PO DAILY [facility] Last Admin: 04/27/18 11:01 Dose: 20 mg Documented by: Sodium Chloride (Nacl 0.9% 1000 Ml) 1,000 mls @ 125 mls/hr IV DIRECT FREDI Last Admin: 04/27/18 07:00 Dose: 125 mls/hr Documented by: Norepinephrine (Levophed Drip 4 Mg/Ns 250 Ml) 4 mg in 250 mls @ 7.5 mls/hr IV TITR [facility]; Protocol Last Titration: 04/26/18 08:15 Dose: 0 mcg/min, 0 mls/hr Documented by: Levofloxacin/Dextrose (Levaquin 750mg/150ml) 750 mg in 150 mls @ 100 mls/hr IV Q48HR [facility]; Protocol Last Admin: 04/27/18 11:01 Dose: 100 mls/hr Documented by: Insulin Human Regular (Humulin R) 0 units SUB-Q AC [facility]; Protocol Last Admin: 04/27/18 08:25 Dose: Not Given Documented by: Insulin Human Regular (Humulin R) 0 units SUB-Q QHS [facility]; Protocol Last Admin: 04/26/18 22:19 Dose: Not Given Documented by: Ondansetron HCl (Zofran) 4 mg IV Q8H PRN PRN Reason: Nausea And Vomiting Pravastatin Sodium (Pravachol) 80 mg PO QHS [facility] Last Admin: 04/26/18 22:02 Dose: 80 mg Documented by: Sucralfate (Carafate) 1 gm PO DAILY [facility] Last Admin: 04/27/18 11:01 Dose: 1 gm Documented by: Review of Systems ROS unobtainable: due to mental status Exam - Vital Signs Vital signs: Vital Signs Temp Pulse Resp BP Pulse Ox 97.8 F 113 H 33 H 89/54 98 04/25/18 21:29 04/25/18 21:29 04/25/18 21:29 04/25/18 21:29 04/25/18 21:29 - General Appearance General appearance: well-developed, well-nourished, appears stated age, other (not in distress) EENT: ATNC, PERRL Neck: Present: neck supple, trachea midline Respiratory: Clear to Ascultation Heart: regular, S1S2, no murmurs Gastrointestinal: Present: normoactive bowel sounds, tenderness, distended. Absent: obese Integumentary: no rash, warm and dry Neurologic: other (arousable, not conversing, not following any command) Musculoskeletal: Present: other (no edema) Results - Lab Results 04/25/18 22:26 04/27/18 06:12 Most recent lab results Calcium 7.4 mg/dL (8.4-10.2) L 04/27/18 06:12 Urine Creatinine 62.1 mg/dL (0.1-20.0) H 04/26/18 18:29 Urine Sodium 101 mmol/L 04/26/18 18:29 - Image Kidney/bladder ultrasound: other Assessment and Plan 1. Acute kidney injury: Patient admitted with elevated creatinine from his baseline. Likely Vasomotor / hemodynamic DEVIN in the setting of hypotension. Renal function is improving. Continue IV fluids. Urine study results noted, UA is bland. 2. FEN: Hypovolemia, continue IV fluids. Metabolic acidosis, monitor. 3. Hypovolemic shock: Resolved. 4. Acute metabolic encephalopathy. 5. Anemia. 6. Left kidney pelvis dilatation: Followed by Urologist. 7. CVA with right hemiparesis.
--- NOTE | 2018-04-27 16:38 | Cat Scan Report ---
FINAL REPORT EXAM: CT ABD AND PELVIS WO CONTRAST HISTORY: retention TECHNIQUE: CT of the abdomen and pelvis without IV contrast. Coronal and sagittal reconstructed imag ing provided. PRIORS: CT abdomen pelvis April 12, 2018. FINDINGS: ABDOMEN: Focal infiltrate or subsegmental atelectasis at the left lung base. Linear scarring and discoid subse gmental atelectasis also at both lung bases. Minimal scarring or discoid subsegmental atelectasis in the right middle lobe. Mild cardiomegaly is partially imaged and grossly stable. No pericardial effusion. No obvious coronar y artery disease. Liver, gallbladder, stomach, spleen, pancreas, and adrenals are unremarkable. Kidneys: 3 mm stone right kidney is relatively unchanged compared to the prior. No right hydronephros is. No right ureteral stones. Moderate left hydronephrosis and dilated left pelvis is relatively unch anged compared to the prior. Abrupt transition at the UPJ again noted. Findings may represent chronic UPJ obstruction. Remainder of the left ureter appears relatively unremarkable. Mild atrophy to left kidney is likely chronic. IVC is unremarkable. Mild aortic atherosclerotic disease. No aneurysm. No periaortic or retroperitoneal mass or adenopathy. Mild stool in the colon. No wall thickening or inflammatory changes. Appendix is normal. Terminal ileum is unremarkable. Small bowel loops are unremarkable. No obstruction. No air-fluid levels. No wall thickening. Mesentery is unremarkable. No free air. No free fluid. Mild anasarca. PELVIS: Bladder: Martinez catheter. Partially collapsed. Small amount of urine. Air in the bladder may be relate d to catheterization. Otherwise grossly unremarkable. Prominent mildly heterogeneous prostate. No pelvic mass or adenopathy. Inguinal regions are unremarkable. Bones: No suspicious osseous lesions on this limited examination of the skeleton. Metastatic disease better evaluated with bone scan. Degenerative changes are in the spine. IMPRESSION: Focal infiltrate, aspiration, or subsegmental atelectasis at the left lung base. Bibasilar right middle lobe scarring and discoid subsegmental atelectasis. Nonobstructing right renal stone. Stable moderate dilatation of left renal pelvis suspected related to chronic UPJ obstruction. No ston e. Overall similar to prior.
--- NOTE | 2018-04-27 21:59 | Consultation ---
HISTORY OF PRESENT ILLNESS: The patient is a gentleman who was previously admitted and came back to the hospital for urinary retention, had a history of hydronephrosis, left side, which we have to follow and see if it got improved with the catheter drainage. I could not get a good history from the family. He has had a previous stroke. He looks a little lethargic and fatigued. He has no history known. He had a previous renal ultrasound about 2 weeks ago, which showed left hydronephrosis, probable chronic UPJ obstruction. He had a CT scan about that time, which showed the same thing with no atrophy of the left kidney and a nonobstructing stone on the right. Martinez catheter was placed and he appears to be off pressors and doing better. PAST MEDICAL HISTORY: Previous stroke, hypertension. PAST SURGICAL HISTORY: No surgery; right knee surgery. FAMILY HISTORY: Negative. SOCIAL HISTORY: Noncontributory. ALLERGIES: PENICILLIN. MEDICATIONS: He is on Pepcid, Plavix, Glucophage. REVIEW OF SYSTEMS: Weakness of right side, difficulty walking and some mentation issues. PHYSICAL EXAMINATION: GENERAL: He is awake, but he is arousable. He is not fully with it in terms of oriented to time and place. He is in no distress. ABDOMEN: Soft, nondistended. GENITALIA: Testes descended bilaterally with moderate atrophy. DIGITAL RECTAL: We could not do. We could not get him to turn over. He has a Martinez catheter, draining clear urine. IMPRESSION AND PLAN: Appears to be chronic hydronephrosis, left side, chronic ureteropelvic junction obstruction likely minimal function of the left kidney. We will get a nuclear scan, recheck the CT scan. His white count was 11,000. We will order a nuclear scan for tomorrow. Martinez is draining clear urine. JOB# [id number] HANNAH/MARK
[2018-04-27] MEDS: PRAVACHOL PO SCH (22:46)
[2018-04-28] MEDS: NACL 0.9% 1000 ML 1,000 ML IV SCH ×2 (00:30→06:53)
[2018-04-28 05:29] LABS: Hematocrit 27.4 % (35.5-45.6); Hemoglobin 8.1 gm/dl (11.8-15.2)
[2018-04-28 05:35] LABS: BUN/Creatinine Ratio 14; Blood Urea Nitrogen 17 mg/dL (9-20); Calcium 7.3 mg/dL (8.4-10.2); Hemolysis Index 5
[2018-04-28] MEDS: HumuLIN R SUB-Q SCH ×3 (07:59→17:17)
[2018-04-28] MEDS: PEPCID PO SCH (09:20)
[2018-04-28] MEDS: PLAVIX PO SCH (09:20)
[2018-04-28] MEDS: CARAFATE PO SCH (09:21)
--- NOTE | 2018-04-28 11:00 | Progress Note ---
Assessment and Plan Assessment and plan: Patient is a 77 yo man with a history of hypertension, CVA with right sided weakness, IDDM, dyslipidemia, GERD, Asthma, OA and recent DEVIN who presented to [facility] ED with AMS,, right shoulder pains per daughter. He was admitted for hypotension, not responding to IVF resuscitation; therefore, right femoral line place in ED and admitted to ICU. Review of old records shows that patient was just discharged on 04/11/2018 after treatment of gout, right leg swelling, CHF, ARF. Admitted with altered level of consciousness and hypotension requiring Levophed --Metabolic encephalopathy/altered level of consciousness; Mild improvement, continue supportive care --Hypovolemic shock; present on admission, requiring levophed:off Pressor Lab blood pressures are reasonable level, supportive care --Possible pneumonia/left lower on CT abdomen; empiric antibiotics, supportive care --Acute kidney injury; vasomotor nephropathy; resolved Nephrology following, however nephrotoxins --Chronic hydronephrosis; urology following, continue Martinez catheterization --Hyponatremia/hypokalemia; resolved, closely monitor electrolytes --Severe malnutrition; hypo albuminemia; albumin 2.1 Nutrition supplements, supportive care, nutrition consult --History of CVA with right-sided weakness; supportive care Physical therapy, continue Plavix and statin --DVT prophylaxis; Lovenox --Full CODE STATUS Closely monitor the patient and adjust management as needed I discussed patient's condition, treatment plan in detail with the daughter and the other family members, they had numerous questions, answered all of them. Follow consults and recommendations History Interval history: Patient seen and examined medical records reviewed Admitted with altered level of consciousness and hypotension Requiring Levophed, blood pressure is significantly improved Patient comfortable not in acute distress Vital signs reviewed Patient's daughter and family member at the bedside Hospitalist Physical - Constitutional Vitals: Temp Pulse Resp BP Pulse Ox 99.5 F 97 H 18 101/59 97 04/28/18 07:52 04/28/18 08:23 04/28/18 08:23 04/28/18 07:52 04/28/18 08:23 General appearance: Present: no acute distress, well-nourished, obese - EENT Eyes: Present: PERRL, EOM intact - Neck Neck: Present: supple, normal ROM - Respiratory Respiratory effort: normal Respiratory: bilateral: diminished, negative: rales, rhonchi, wheezing - Cardiovascular Rhythm: regular Heart Sounds: Present: S1 & S2 - Extremities Extremities: no ischemia, No edema - Abdominal General gastrointestinal: soft, non-tender, non-distended, normal bowel sounds - Integumentary Integumentary: Present: clear, warm - Psychiatric Psychiatric: cooperative - Neurologic Neurologic: other (old stroke with right-sided residual weakness) Results - Labs CBC & Chem 7: 04/29/18 05:23 04/29/18 05:23 Labs: Laboratory Last Values WBC 11.0 K/mm3 (4.5-11.0) 04/25/18 22:26 RBC 3.67 M/mm3 (3.65-5.03) 04/25/18 22:26 Hgb 8.1 gm/dl (11.8-15.2) L 04/28/18 04:48 Hct 27.4 % (35.5-45.6) L 04/28/18 04:48 MCV 69 fl (84-94) L 04/25/18 22:26 MCH 22 pg (28-32) L 04/25/18 22:26 MCHC 31 % (32-34) L 04/25/18 22:26 RDW 18.8 % (13.2-15.2) H 04/25/18 22:26 Plt Count 279 K/mm3 (140-440) 04/25/18 22:26 Lymph % (Auto) Test Hole Driller 04/25/18 22:26 Moore % (Auto) Test Hole Driller 04/25/18 22:26 Eos % (Auto) Test Hole Driller 04/25/18 22:26 Baso % (Auto) Test Hole Driller 04/25/18 22:26 Lymph # Test Hole Driller 04/25/18 22:26 Moore # Test Hole Driller 04/25/18 22:26 Eos # Test Hole Driller 04/25/18 22:26 Baso # Test Hole Driller 04/25/18 22:26 Add Manual Diff Complete 04/25/18 22:26 Total Counted 100 04/25/18 22:26 Seg Neutrophils % Test Hole Driller 04/25/18 22:26 Seg Neuts % (Manual) 91.0 % (40.0-70.0) H 04/25/18 22:26 Band Neutrophils % 3.0 % 04/25/18 22:26 Lymphocytes % (Manual) 4.0 % (13.4-35.0) L 04/25/18 22:26 Reactive Lymphs % (Man) 0 % 04/25/18 22:26 Monocytes % (Manual) 2.0 % (0.0-7.3) 04/25/18 22: Eosinophils % (Manual) 0 % (0.0-4.3) 04/25/18 22:26 Basophils % (Manual) 0 % (0.0-1.8) 04/25/18 22: Metamyelocytes % 0 % 04/25/18 22: Myelocytes % 0 % 04/25/18 22: Promyelocytes % 0 % 04/25/18 22: Blast Cells % 0 % 04/25/18: Nucleated RBC % Not Reportable 04/25/18 22: Seg Neutrophils # Test Hole Driller 04/25/18 22: Seg Neutrophils # Man 10.0 K/mm3 (1.8-7.7) H 04/25/18 22: Band Neutrophils # 0.3 K/mm3 04/25/18 22: Lymphocytes # (Manual) 0.4 K/mm3 (1.2-5.4) L 04/25/18 22:26 Abs React Lymphs (Man) 0.0 K/mm3 04/25/18: Monocytes # (Manual) 0.2 K/mm3 (0.0-0.8) 04/25/18 22:26 Eosinophils # (Manual) 0.0 K/mm3 (0.0-0.4) 04/25/18: Basophils # (Manual) 0.0 K/mm3 (0.0-0.1) 04/25/18: Metamyelocytes # 0.0 K/mm3 04/25/18 22: Myelocytes # 0.0 K/mm3 04/25/18: Promyelocytes # 0.0 K/mm3 04/25/18: Blast Cells # 0.0 K/mm3 04/25/18: WBC Morphology Not Reportable 04/25/18 22:26 Hypersegmented Neuts Not Reportable 04/25/18 22:26 Hyposegmented Neuts Not Reportable 04/25/18: Hypogranular Neuts Not Reportable 04/25/18: Smudge Cells Not Reportable 02/02/19 22:26 Toxic Granulation Not Reportable 04/25/18 22:26 Toxic Vacuolation Not Reportable 04/25/18 22:26 Dohle Bodies Not Reportable 04/25/18 22:26 Pelger-Huet Anomaly Not Reportable 04/25/18 22:26 Alba Rods Not Reportable 04/25/18 22:26 Platelet Estimate Consistent w auto 04/25/18 22:26 Clumped Platelets Not Reportable 04/25/18 22:26 Plt Clumps, EDTA Not Reportable 04/25/18 22:26 Large Platelets Not Reportable 04/25/18 22:26 Giant Platelets Not Reportable 04/25/18 22:26 Platelet Satelliting Not Reportable 04/25/18 22:26 Plt Morphology Comment Not Reportable 04/25/18 22:26 RBC Morphology Not Reportable 04/25/18 22:26 Dimorphic RBCs Not Reportable 04/25/18 22:26 Polychromasia Not Reportable 04/25/18 22:26 Hypochromasia Not Reportable 04/25/18 22:26 Poikilocytosis Not Reportable 04/25/18 22:26 Anisocytosis 1+ 04/25/18 22:26 Microcytosis Not Reportable 04/25/18 22:26 Macrocytosis Not Reportable 04/25/18 22:26 Spherocytes Not Reportable 04/25/18 22:26 Pappenheimer Bodies Not Reportable 04/25/18 22:26 Sickle Cells Not Reportable 04/25/18 22:26 Target Cells Not Reportable 04/25/18 22:26 Tear Drop Cells Not Reportable 04/25/18 22:26 Ovalocytes Not Reportable 04/25/18 22:26 Helmet Cells Not Reportable 04/25/18 22:26 Mccoy-Ken Caryl Bodies Not Reportable 04/25/18 22:26 [place] Rings Not Reportable 04/25/18 22:26 Jazmin Cells Not Reportable 04/25/18 22:26 Bite Cells Not Reportable 04/25/18 22:26 Crenated Cell Not Reportable 04/25/18 22:26 Elliptocytes 1+ 04/25/18 22:26 Acanthocytes (Spur) Not Reportable 04/25/18 22:26 Rouleaux Not Reportable 04/25/18 22:26 Hemoglobin C Crystals Not Reportable 04/25/18 22:26 Schistocytes Not Reportable 04/25/18 22:26 Malaria parasites Not Reportable 04/25/18 22:26 James Bodies Not Reportable 04/25/18 22:26 Hem Pathologist Commnt No 04/25/18 22:26 Sodium 142 mmol/L (137-145) 04/28/18 04:48 Potassium 4.6 mmol/L (3.6-5.0) 04/28/18 04:48 Chloride 111.2 mmol/L (98-107) H 04/28/18 04:48 Carbon Dioxide 18 mmol/L (22-30) L 04/28/18 04:48 Anion Gap 17 mmol/L 04/28/18 04:48 BUN 17 mg/dL (9-20) 04/28/18 04:48 Creatinine 1.2 mg/dL (0.8-1.5) 04/28/18 04:48 Estimated GFR > 60 ml/min 04/28/18 04:48 BUN/Creatinine Ratio 14 % 04/28/18 04:48 Glucose 107 mg/dL (75-100) H 04/28/18 04:48 POC Glucose 105 (70-105) 04/28/18 07:56 Lactic Acid 1.00 mmol/L (0.7-2.0) 04/26/18 03:04 Uric Acid 8.6 mg/dL (3.5-7.6) H 04/26/18 00:26 Calcium 7.3 mg/dL (8.4-10.2) L 04/28/18 04:48 Phosphorus 2.60 mg/dL (2.5-4.5) 04/28/18 04:48 Magnesium 1.70 mg/dL (1.7-2.3) 04/28/18 04:48 Total Bilirubin 0.30 mg/dL (0.1-1.2) 04/25/18 22:26 AST 14 units/L (5-40) 04/25/18 22:26 ALT 14 units/L (7-56) 04/25/18 22:26 Alkaline Phosphatase 108 units/L (35-129) 04/25/18 22:26 Ammonia 20.0 umol/L (25-60) L 04/25/18 22:26 Total Creatine Kinase 24 units/L (55-170) L 04/26/18 13:54 CK-MB (CK-2) 1.8 ng/mL (0.0-4.0) 04/26/18 13:54 CK-MB (CK-2) Rel Index 7.5 (0-4) H 04/26/18 13:54 Troponin T 0.020 ng/mL (0.00-0.029) 04/26/18 13:54 Total Protein 6.4 g/dL (6.3-8.2) 04/25/18 22:26 Albumin 2.1 g/dL (3.9-5) L 04/25/18 22:26 Albumin/Globulin Ratio 0.5 % 04/25/18 22:26 Triglycerides 89 mg/dL (2-149) 04/25/18 22:26 Cholesterol 91 mg/dL (50-199) 04/25/18 22:26 LDL Cholesterol Direct 59 mg/dL (50-130) 04/25/18 22:26 HDL Cholesterol 23 mg/dL (40-59) L 04/25/18 22:26 Cholesterol/HDL Ratio 3.95 % 04/25/18 22:26 TSH 1.510 mlU/mL (0.270-4.200) 04/25/18 22:26 Urine Color Yellow (Yellow) 04/26/18 18:29 Urine Turbidity Clear (Clear) 04/26/18 18:29 Urine pH 5.0 (5.0-7.0) 04/26/18 18:29 Ur Specific [place] 1.008 (1.003-1.030) 04/26/18 18:29 Urine Protein <15 mg/dl mg/dL (Negative) 04/26/18 18:29 Urine Glucose (UA) Neg mg/dL (Negative) 04/26/18 18:29 Urine Ketones Tr mg/dL (Negative) 04/26/18 18:29 Urine Blood Mod (Negative) 04/26/18 18:29 Urine Nitrite Neg (Negative) 04/26/18 18:29 Urine Bilirubin Neg (Negative) 04/26/18 18:29 Urine Urobilinogen < 2.0 mg/dL (<2.0) 04/26/18 18:29 Ur Leukocyte Esterase Mod (Negative) 04/26/18 18:29 Urine WBC (Auto) 17.0 /HPF (0.0-6.0) H 04/26/18 18:29 Urine RBC (Auto) 64.0 /HPF (0.0-6.0) 04/26/18 18:29 U Epithel Cells (Auto) < 1.0 /HPF (0-13.0) 04/26/18 18:29 Urine Mucus Few /HPF 04/26/18 18:29 Urine Eosinophils 3% (None Seen) 04/26/18 18:29 Urine Creatinine 62.1 mg/dL (0.1-20.0) H 04/26/18 18:29 Urine Sodium 101 mmol/L 04/26/18 18:29 Fraction Sodium Excret 2.3 04/26/18 18:29 Plasma/Serum Alcohol < 0.01 % (0-0.07) 04/25/18 22:26 Nutrition/Malnutrition Assess - Dietary Evaluation Nutrition/Malnutrition Findings: Nutrition Notes Start: 04/27/18 14:56 Freq: Status: Active Protocol: Document 04/27/18 14:56 RM (Rec: 04/27/18 14:58 RM [id number]) Nutrition Notes Need for 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 Pt asleep at time of visit. Nutrition Intervention Follow-Up By: 04/28/18 Additional Comments follow for DM diet education
--- NOTE | 2018-04-28 13:59 | Nuclear Medicine Report ---
NUCLEAR MEDICINE RENAL SCAN ROUTINE HISTORY: Left hydronephrosis. TECHNIQUE: 5 mCi of technetium 99 MAG3 was administered. Posterior flow and function imaging was obtained. Renogram curves were constructed. FINDINGS: Correlation is made with the CT abdomen and pelvis without contrast dated 04/27/18 and renal ultrasound dated 04/12/18. The posterior perfusion images demonstrate decreased flow to the left kidney compared to the right kidney. There is relatively normal perfusion to the right kidney. The posterior function images demonstrate normal uptake and excretion of the radiotracer in the right kidney with peak activity occurring near 4 minutes. There is poor uptake and excretion of the radiotracer in the left kidney. The left kidney appears atrophic compared to the right side. Mild prominence of the left renal pelvis is again noted. Lasix was not administered. Split function measures 81% right kidney and 19% left kidney. IMPRESSION: Atrophic left kidney with poor flow and function as described above. Apparent normal function of the right kidney. CT and ultrasound suggest chronic obstruction at the left ureteropelvic junction or proximal left ureter.
--- NOTE | 2018-04-28 14:17 | Progress Note ---
Assessment and Plan 1. Acute kidney injury: Patient admitted with elevated creatinine from his baseline. Likely Vasomotor / hemodynamic DEVIN in the setting of hypotension. Renal function is better. Continue IV fluids. Left atrophic kidney. 2. FEN: Hypovolemia, continue IV fluids. Metabolic acidosis, start on sodium bicarbonate. 3. Hypovolemic shock: Resolved. 4. Acute metabolic encephalopathy. 5. Anemia. 6. Left kidney pelvis dilatation: Followed by Urologist. 7. CVA with right hemiparesis. Subjective Date of service: 04/28/18 Principal diagnosis: retention Interval history: Patient was seen and examined at the bedside. Objective - Vital Signs Vital signs: Vital Signs - 12hr 04/28/18 04/28/18 04/28/18 07:52 10:00 14:04 Temperature 99.5 F 99.1 F Pulse Rate 97 H 114 H 104 H Pulse Rate [ 114 H From Monitor] Respiratory 18 18 18 Rate Blood Pressure 101/59 118/61 O2 Sat by Pulse 97 97 97 Oximetry - General Appearance General appearance: well-developed, appears stated age, other (not in distress) EENT: ATNC Neck: supple Respiratory: Present: Clear to Ascultation Cardiology: regular, S1S2, no murmurs Gastrointestinal: normoactive bowel sounds, no tenderness, no distended Integumentary: warm and dry, chronic venous stasis Neurologic: confused, disoriented, other (sleeping, arousable, right sided facial weakness noted, exam is limited as patient is not following all the com isa) Musculoskeletal: other (no edema) - Lab 04/28/18 04:48 04/28/18 04:48 Most recent lab results Calcium 7.3 mg/dL (8.4-10.2) L 04/28/18 04:48 Phosphorus 2.60 mg/dL (2.5-4.5) 04/28/18 04:48 Magnesium 1.70 mg/dL (1.7-2.3) 04/28/18 04:48 Urine Creatinine 62.1 mg/dL (0.1-20.0) H 04/26/18 18:29 Urine Sodium 101 mmol/L 04/26/18 18:29 Medications & Allergies - Medications Allergies/Adverse Reactions: Allergies Penicillins Allergy (Verified 04/11/18 16:00) Unknown Home Medications: Home Medications Medication Instructions Recorded Confirmed Last Taken Type Clopidogrel Bisulfate [Plavix] 75 mg PO DAILY #0 09/21/17 04/26/18 04/24/18 12:00 History Famotidine [Pepcid] 20 mg PO DAILY #0 09/21/17 04/26/18 04/24/18 History 20mg Simvastatin 40 mg PO HS 09/21/17 04/26/18 04/24/18 08:00 History 20 mg Sucralfate [Carafate] 1 gram PO DAILY #0 09/21/17 04/26/18 04/24/18 12:00 History 1 gm amLODIPine 5 mg PO DAILY 09/21/17 04/26/18 04/24/18 21:00 History 5 mg Losartan [Cozaar] 100 mg PO QDAY 04/26/18 04/26/18 04/24/18 21:00 History Spironolactone [Aldactone] 25 mg PO QDAY 04/26/18 04/26/18 04/24/18 08:00 History Torsemide [Demadex] 2.5 mg PO 3XW 04/26/18 04/26/18 Unknown History Active Medications: Generic Name Dose Route Start Last Admin Trade Name Freq PRN Reason Stop Dose Admin Acetaminophen 650 mg 04/26/18 02:48 Tylenol PO Q4H PRN Fever >101 Acetaminophen/Hydrocodone Bitart 1 each 04/26/18 02:53 04/26/18 10:58 Advance 5/325 PO 1 each Q6HR PRN Administration Pain Clopidogrel Bisulfate 75 mg 04/26/18 10:00 04/28/18 09:20 Plavix PO 75 mg DAILY FREDI Administration Dextrose 50 ml 04/26/18 03:10 D50w (25gm) Syringe IV PRN PRN Hypoglycemia Famotidine 20 mg 04/26/18 10:00 04/28/18 09:20 Pepcid PO 20 mg DAILY FREDI Administration Sodium Chloride 1,000 mls @ 125 mls/hr 04/26/18 03:00 04/28/18 06:53 Nacl 0.9% 1000 Ml IV 125 mls/hr DIRECT FREDI Administration Norepinephrine 4 mg in 250 mls @ 7.5 mls/hr 04/26/18 03:00 04/26/18 08:15 Levophed Drip 4 Mg/Ns 250 Ml IV 0 mcg/min TITR FREDI 0 mls/hr Titration Protocol 2 MCG/MIN Levofloxacin/Dextrose 750 mg in 150 mls @ 100 mls/hr 04/27/18 10:00 04/27/18 12:31 Levaquin 750mg/150ml IV Infused Q48HR [facility] Infusion Protocol Insulin Human Regular 0 units 04/26/18 07:30 04/28/18 12:19 Humulin R SUB-Q Not Given AC [facility] Protocol Insulin Human Regular 0 units 04/26/18 22:00 04/27/18 22:47 Humulin R SUB-Q Not Given QHS [facility] Protocol Magnesium Hydroxide 30 ml 04/28/18 11:58 Milk Of Magnesia PO QDAY PRN Constipation Ondansetron HCl 4 mg 04/26/18 02:49 Zofran IV Q8H PRN Nausea And Vomiting Pravastatin Sodium 80 mg 04/26/18 22:00 04/27/18 22:46 Pravachol PO 80 mg QHS [facility] Administration Sucralfate 1 gm 04/26/18 10:00 04/28/18 09:21 Carafate PO 1 gm DAILY [facility] Administration
[2018-04-28] MEDS: NACL 0.45% 1000 ML 1,000 ML IV SCH (17:17)
[2018-04-28] MEDS: MILK OF MAGNESIA PO PRN (17:20)
[2018-04-28] MEDS: PRAVACHOL PO SCH (22:02)
[2018-04-28] MEDS: SODIUM BICARBONATE PO SCH (22:02)
[2018-04-28] MEDS: TYLENOL PO PRN (22:04)
[2018-04-28] MEDS: LOVENOX SUB-Q SCH (22:04)
[2018-04-29] MEDS: NACL 0.45% 1000 ML 1,000 ML IV SCH (06:05)
[2018-04-29 06:45] LABS: Eosinophils % (Auto) 0.6 % (0.0-4.3); Hematocrit 25.1 % (35.5-45.6); Hemoglobin 7.5 gm/dl (11.8-15.2); Lymphocytes % (Auto) 6.1 % (13.4-35.0); Mean Corpuscular HGB Conc 30 % (32-34); Mean Corpuscular Volume 71 fl (84-94); Monocytes % (Auto) 3.6 % (0.0-7.3); Platelet Count 234 K/mm3 (140-440); Red Blood Count 3.55 M/mm3 (3.65-5.03); Red Cell Distribution Width 19.6 % (13.2-15.2)
[2018-04-29 06:46] LABS: Basophils # (Auto) 0.1 K/mm3 (0.0-0.1); Eosinophils # (Auto) 0.1 K/mm3 (0.0-0.4); Lymphocytes # (Auto) 0.7 K/mm3 (1.2-5.4); Monocytes # (Auto) 0.4 K/mm3 (0.0-0.8)
[2018-04-29 07:00] LABS: BUN/Creatinine Ratio 15; Blood Urea Nitrogen 16 mg/dL (9-20); Calcium 7.4 mg/dL (8.4-10.2); Hemolysis Index 33
[2018-04-29] MEDS: SODIUM BICARBONATE PO SCH ×3 (08:08→20:50)
--- NOTE | 2018-04-29 08:38 | Progress Note ---
Assessment and Plan Assessment and plan: 77 yo man with a history of hypertension, CVA with right sided weakness, IDDM, dyslipidemia, GERD, Asthma, OA and recent DEVIN who presented to [facility] with AMS,, right shoulder pains per daughter. He was admitted for hypotension, not responding to IVF resuscitation; therefore, right femoral line place in ED and admitted to ICU. Review of old records shows that patient was just discharged on 04/11/2018 after treatment of gout, right leg swelling, CHF, ARF. Admitted with altered level of consciousness and hypotension requiring Levophed --Low-grade fever/cough/aspiration risk Chest x-ray, blood ,sputum and urine cultures Continue empiric antibiotics, Speech therapy/swallow evaluation --Metabolic encephalopathy/altered level of consciousness; Significantly improved --Hypovolemic shock; present on admission, requiring levophed:off Pressor blood pressures are reasonable level, supportive care --Possible pneumonia/left lower on CT abdomen; empiric antibiotics, supportive care --Acute kidney injury; vasomotor nephropathy; resolved Nephrology following, avoid nephrotoxins, d/c IV fluids --Left kidney atrophy /Chronic hydronephrosis; urology following, continue Martinez catheterization --Hyponatremia/hypokalemia; resolved, closely monitor electrolytes --Severe malnutrition; hypo albuminemia; albumin 2.1 Nutrition supplements, supportive care, nutrition consult --History of CVA with right-sided weakness; supportive care Physical therapy, continue Plavix and statin --DVT prophylaxis; Lovenox --Full CODE STATUS --Physical therapy/OT Discharge planning; possible acute rehabilitation at [facility] planning when medically stable Closely monitor the patient and adjust management as needed I discussed patient's condition, treatment plan in detail with the daughter and the other family members, answered all their questions Follow consults and recommendations History Interval history: Patient Seen and examined medical records reviewed Family members at the bedside Family and nurse report that patient has coughing spells with Sputum, Low-grade fever Patient is more alert awake responding appropriately Not in acute distress vital signs reviewed Hospitalist Physical - Constitutional Vitals: Temp Pulse Resp BP Pulse Ox 98.0 F 100 H 18 106/61 96 04/29/18 03:13 04/29/18 03:13 04/29/18 03:13 04/29/18 03:13 04/29/18 03:13 General appearance: Present: no acute distress, well-nourished, obese, other (responding appropriately) - EENT Eyes: Present: PERRL, EOM intact - Neck Neck: Present: supple, normal ROM - Respiratory Respiratory effort: normal Respiratory: bilateral: diminished, rhonchi, negative: rales, wheezing - Cardiovascular Rhythm: regular Heart Sounds: Present: S1 & S2 - Extremities Extremities: no ischemia, No edema - Abdominal General gastrointestinal: soft, non-tender, non-distended, normal bowel sounds - Integumentary Integumentary: Present: clear, warm - Psychiatric Psychiatric: appropriate mood/affect, cooperative - Neurologic Neurologic: other (stroke with right-sided weakness) Results - Labs CBC & Chem 7: 04/29/18 05:23 04/29/18 05:23 Labs: Laboratory Last Values WBC 12.2 K/mm3 (4.5-11.0) H 04/29/18 05:23 RBC 3.55 M/mm3 (3.65-5.03) L 04/29/18 05:23 Hgb 7.5 gm/dl (11.8-15.2) L 04/29/18 05:23 Hct 25.1 % (35.5-45.6) L 04/29/18 05:23 MCV 71 fl (84-94) L 04/29/18 05:23 MCH 21 pg (28-32) L 04/29/18 05:23 MCHC 30 % (32-34) L 04/29/18 05:23 RDW 19.6 % (13.2-15.2) H 04/29/18 05:23 Plt Count 234 K/mm3 (140-440) 04/29/18 05:23 Lymph % (Auto) 6.1 % (13.4-35.0) L 04/29/18 05:23 Ogle % (Auto) 3.6 % (0.0-7.3) 04/29/18 05:23 Eos % (Auto) 0.6 % (0.0-4.3) 04/29/18 05:23 Baso % (Auto) 1.0 % (0.0-1.8) 04/29/18 05:23 Lymph # 0.7 K/mm3 (1.2-5.4) L 04/29/18 05:23 Ogle # 0.4 K/mm3 (0.0-0.8) 04/29/18 05:23 Eos # 0.1 K/mm3 (0.0-0.4) 04/29/18 05:23 Baso # 0.1 K/mm3 (0.0-0.1) 04/29/18 05:23 Add Manual Diff Complete 04/25/18 22:26 Total Counted 100 04/25/18 22:26 Seg Neutrophils % 88.7 % (40.0-70.0) H 04/29/18 05:23 Seg Neuts % (Manual) 91.0 % (40.0-70.0) H 04/25/18 22:26 Band Neutrophils % 3.0 % 04/25/18 22:26 Lymphocytes % (Manual) 4.0 % (13.4-35.0) L 04/25/18 22:26 Reactive Lymphs % (Man) 0 % 04/25/18 22:26 Monocytes % (Manual) 2.0 % (0.0-7.3) 04/25/18 22:26 Eosinophils % (Manual) 0 % (0.0-4.3) 04/25/18 22:26 Basophils % (Manual) 0 % (0.0-1.8) 04/25/18 22:26 Metamyelocytes % 0 % 04/25/18 22:26 Myelocytes % 0 % 04/25/18 22:26 Promyelocytes % 0 % 04/25/18 22:26 Blast Cells % 0 % 04/25/18 22:26 Nucleated RBC % Not Reportable 04/25/18 22:26 Seg Neutrophils # 10.9 K/mm3 (1.8-7.7) H 04/29/18 05:23 Seg Neutrophils # Man 10.0 K/mm3 (1.8-7.7) H 04/25/18 22:26 Band Neutrophils # 0.3 K/mm3 04/25/18 22:26 Lymphocytes # (Manual) 0.4 K/mm3 (1.2-5.4) L 04/25/18 22:26 Abs React Lymphs (Man) 0.0 K/mm3 04/25/18 22:26 Monocytes # (Manual) 0.2 K/mm3 (0.0-0.8) 04/25/18 22:26 Eosinophils # (Manual) 0.0 K/mm3 (0.0-0.4) 04/25/18 22:26 Basophils # (Manual) 0.0 K/mm3 (0.0-0.1) 04/25/18 22:26 Metamyelocytes # 0.0 K/mm3 04/25/18 22:26 Myelocytes # 0.0 K/mm3 04/25/18 22:26 Promyelocytes # 0.0 K/mm3 04/25/18 22:26 Blast Cells # 0.0 K/mm3 04/25/18 22:26 WBC Morphology Not Reportable 04/25/18 22:26 Hypersegmented Neuts Not Reportable 04/25/18 22:26 Hyposegmented Neuts Not Reportable 04/25/18 22:26 Hypogranular Neuts Not Reportable 04/25/18 22:26 Smudge Cells Not Reportable 04/25/18 22:26 Toxic Granulation Not Reportable 04/25/18 22:26 Toxic Vacuolation Not Reportable 04/25/18 22:26 Dohle Bodies Not Reportable 04/25/18 22:26 Pelger-Huet Anomaly Not Reportable 04/25/18 22:26 Alba Rods Not Reportable 04/25/18 22:26 Platelet Estimate Consistent w auto 04/25/18 22:26 Clumped Platelets Not Reportable 04/25/18 22:26 Plt Clumps, EDTA Not Reportable 04/25/18 22:26 Large Platelets Not Reportable 04/25/18 22:26 Giant Platelets Not Reportable 04/25/18 22:26 Platelet Satelliting Not Reportable 04/25/18 22:26 Plt Morphology Comment Not Reportable 04/25/18 22:26 RBC Morphology Not Reportable 04/25/18 22:26 Dimorphic RBCs Not Reportable 04/25/18 22:26 Polychromasia Not Reportable 04/25/18 22:26 Hypochromasia Not Reportable 04/25/18 22:26 Poikilocytosis Not Reportable 04/25/18 22:26 Anisocytosis 1+ 04/25/18 22:26 Microcytosis Not Reportable 04/25/18 22:26 Macrocytosis Not Reportable 04/25/18 22:26 Spherocytes Not Reportable 04/25/18 22:26 Pappenheimer Bodies Not Reportable 04/25/18 22:26 Sickle Cells Not Reportable 04/25/18 22:26 Target Cells Not Reportable 04/25/18 22:26 Tear Drop Cells Not Reportable 04/25/18 22:26 Ovalocytes Not Reportable 04/25/18 22:26 Helmet Cells Not Reportable 04/25/18 22:26 [place] Bodies Not Reportable 04/25/18 22:26 [place] Rings Not Reportable 04/25/18 22:26 Jazmin Cells Not Reportable 04/25/18 22:26 Bite Cells Not Reportable 04/25/18 22:26 Crenated Cell Not Reportable 04/25/18 22:26 Elliptocytes 1+ 04/25/18 22:26 Acanthocytes (Spur) Not Reportable 04/25/18 22:26 Rouleaux Not Reportable 04/25/18 22:26 Hemoglobin C Crystals Not Reportable 04/25/18 22:26 Schistocytes Not Reportable 04/25/18 22:26 Malaria parasites Not Reportable 04/25/18 22:26 James Bodies Not Reportable 04/25/18 22:26 Hem Pathologist Commnt No 04/25/18 22:26 Sodium 137 mmol/L (137-145) 04/29/18 05:23 Potassium 4.4 mmol/L (3.6-5.0) 04/29/18 05:23 Chloride 109.7 mmol/L (98-107) H 04/29/18 05:23 Carbon Dioxide 19 mmol/L (22-30) L 04/29/18 05:23 Anion Gap 13 mmol/L 04/29/18 05:23 BUN 16 mg/dL (9-20) 04/29/18 05:23 Creatinine 1.1 mg/dL (0.8-1.5) 04/29/18 05:23 Estimated GFR > 60 ml/min 04/29/18 05:23 BUN/Creatinine Ratio 15 % 04/29/18 05:23 Glucose 96 mg/dL (75-100) 04/29/18 05:23 POC Glucose 95 (70-105) 04/29/18 07:31 Lactic Acid 1.00 mmol/L (0.7-2.0) 04/26/18 03:04 Uric Acid 8.6 mg/dL (3.5-7.6) H 04/26/18 00:26 Calcium 7.4 mg/dL (8.4-10.2) L 04/29/18 05:23 Phosphorus 2.60 mg/dL (2.5-4.5) 04/28/18 04:48 Magnesium 1.70 mg/dL (1.7-2.3) 04/29/18 05:23 Total Bilirubin 0.30 mg/dL (0.1-1.2) 04/25/18 22:26 AST 14 units/L (5-40) 04/25/18 22:26 ALT 14 units/L (7-56) 04/25/18 22:26 Alkaline Phosphatase 108 units/L (35-129) 04/25/18 22:26 Ammonia 20.0 umol/L (25-60) L 04/25/18 22:26 Total Creatine Kinase 24 units/L (55-170) L 04/26/18 13:54 CK-MB (CK-2) 1.8 ng/mL (0.0-4.0) 04/26/18 13:54 CK-MB (CK-2) Rel Index 7.5 (0-4) H 04/26/18 13:54 Troponin T 0.020 ng/mL (0.00-0.029) 04/26/18 13:54 Total Protein 6.4 g/dL (6.3-8.2) 04/25/18 22:26 Albumin 2.1 g/dL (3.9-5) L 04/25/18 22:26 Albumin/Globulin Ratio 0.5 % 04/25/18 22:26 Triglycerides 89 mg/dL (2-149) 04/25/18 22:26 Cholesterol 91 mg/dL (50-199) 04/25/18 22:26 LDL Cholesterol Direct 59 mg/dL (50-130) 04/25/18 22:26 HDL Cholesterol 23 mg/dL (40-59) L 04/25/18 22:26 Cholesterol/HDL Ratio 3.95 % 04/25/18 22:26 TSH 1.510 mlU/mL (0.270-4.200) 04/25/18 22:26 Urine Color Yellow (Yellow) 04/26/18 18:29 Urine Turbidity Clear (Clear) 04/26/18 18:29 Urine pH 5.0 (5.0-7.0) 04/26/18 18:29 Ur Specific [place] 1.008 (1.003-1.030) 04/26/18 18:29 Urine Protein <15 mg/dl mg/dL (Negative) 04/26/18 18:29 Urine Glucose (UA) Neg mg/dL (Negative) 04/26/18 18:29 Urine Ketones Tr mg/dL (Negative) 04/26/18 18:29 Urine Blood Mod (Negative) 04/26/18 18:29 Urine Nitrite Neg (Negative) 04/26/18 18:29 Urine Bilirubin Neg (Negative) 04/26/18 18:29 Urine Urobilinogen < 2.0 mg/dL (<2.0) 04/26/18 18:29 Ur Leukocyte Esterase Mod (Negative) 04/26/18 18:29 Urine WBC (Auto) 17.0 /HPF (0.0-6.0) H 04/26/18 18:29 Urine RBC (Auto) 64.0 /HPF (0.0-6.0) 04/26/18 18:29 U Epithel Cells (Auto) < 1.0 /HPF (0-13.0) 04/26/18 18:29 Urine Mucus Few /HPF 04/26/18 18:29 Urine Eosinophils 3% (None Seen) 04/26/18 18:29 Urine Creatinine 62.1 mg/dL (0.1-20.0) H 04/26/18 18:29 Urine Sodium 101 mmol/L 04/26/18 18:29 Fraction Sodium Excret 2.3 04/26/18 18:29 Plasma/Serum Alcohol < 0.01 % (0-0.07) 04/25/18 22:26 Nutrition/Malnutrition Assess - Dietary Evaluation Nutrition/Malnutrition Findings: Nutrition Notes Start: 04/27/18 14:56 Freq: Status: Active Protocol: Document 04/28/18 14:44 RM (Rec: 04/28/18 14:52 RM [id number]) Nutrition Notes Initial or Follow up Assessment Current Diagnosis Acute Kidney Injury CKD(stage I-IV) Diabetes Hypertension Other Pertinent Diagnosis GERD, Hypercholesterolemia, Acute metabolic encephalopathy ,AMS Subjective/Other Information Pt, pt , pt daughter, and pt granddaughter in room at time of visit. Pt family was not aware that pt has DM. Dent Remover advised family to ask nurse to ask MD to come speak with them regarding any questions handbook writer was unable to answer. Reviewed Carbohydrate Counting. Gave handout. #1 Nutrition Diagnosis Food and nutrition-related knowledge deficit Etiology lack of prior education As Evidenced by Signs and Symptoms no prior knowledge of need for food and nutrition recommendations Nutrition Intervention Teaching Recipient Patient Family Spouse Learning Readiness Good Teaching Methods Discussion Handout Response to Teaching Verbalize understanding Education Handouts Provided Carbohydrate Counting for People with Diabetes Barriers to Learning No Barriers RD phone number provided Yes Patient aware of follow up options Yes Goal #1 Utilize carbohydrate counting Revisit per MD consult or patient Sign Off request:
[2018-04-29] MEDS: PEPCID PO SCH (08:59)
[2018-04-29] MEDS: CARAFATE PO SCH (08:59)
[2018-04-29] MEDS: PLAVIX PO SCH (08:59)
--- NOTE | 2018-04-29 09:11 | XRay Report ---
AP CHEST: HISTORY: Cough Mild pulmonary venous congestion has increased slightly since 04/25/18. Trace right pleural effusion is suspected. The lungs are generally clear otherwise. Heart size is at the upper limits of normal. The bony structures are mildly demineralized but intact. IMPRESSION: Mild pulmonary venous congestion and trace right pleural effusion.
[2018-04-29] MEDS ORDERED: LEVAQUIN 750MG/150ML 750 MG/150 ML BAG IV SCH (10:00)
[2018-04-29] MEDS: TYLENOL PO PRN ×2 (10:56→18:55)
--- NOTE | 2018-04-29 11:53 | Progress Note ---
Assessment and Plan 1. Acute kidney injury: Patient admitted with elevated creatinine from his baseline. Likely Vasomotor / hemodynamic DEVIN in the setting of hypotension. Renal function is better. Left atrophic kidney. 2. FEN: Hypovolemia, improved. Metabolic acidosis, on sodium bicarbonate. 3. Hypovolemic shock: Resolved. 4. Acute metabolic encephalopathy. 5. Anemia. 6. CVA with right hemiparesis. Subjective Date of service: 04/29/18 Principal diagnosis: retention Interval history: Patient was seen and examined at the bedside. Per family patient is doing much better. Objective - Vital Signs Vital signs: Vital Signs - 12hr 04/29/18 04/29/18 04/29/18 03:13 08:00 10:00 Temperature 98.0 F 99.6 F Pulse Rate 100 H 42 L 122 H Pulse Rate [ 122 H From Monitor] Respiratory 18 20 20 Rate Blood Pressure 106/61 107/60 O2 Sat by Pulse 96 94 94 Oximetry - General Appearance General appearance: well-developed, well-nourished, appears stated age, obese, other (not in distress) EENT: ATNC, PERRL Neck: supple Respiratory: Present: Clear to Ascultation Cardiology: regular, S1S2, no murmurs Gastrointestinal: normoactive bowel sounds, no tenderness, no distended Integumentary: warm and dry, chronic venous stasis Neurologic: confused, other (right sided weakness) Musculoskeletal: other (no edema) - Lab 04/29/18 05:23 04/29/18 05:23 Most recent lab results Calcium 7.4 mg/dL (8.4-10.2) L 04/29/18 05:23 Phosphorus 2.60 mg/dL (2.5-4.5) 04/28/18 04:48 Magnesium 1.70 mg/dL (1.7-2.3) 04/29/18 05:23 Urine Creatinine 62.1 mg/dL (0.1-20.0) H 04/26/18 18:29 Urine Sodium 101 mmol/L 04/26/18 18:29 Medications & Allergies - Medications Allergies/Adverse Reactions: Allergies Penicillins Allergy (Verified 04/11/18 16:00) Unknown Home Medications: Home Medications Medication Instructions Recorded Confirmed Last Taken Type Clopidogrel Bisulfate [Plavix] 75 mg PO DAILY #0 09/21/17 04/26/18 04/24/18 12: 00 History Famotidine [Pepcid] 20 mg PO DAILY #0 09/21/17 04/26/18 04/24/18 History 20mg Simvastatin 40 mg PO HS 09/21/17 04/26/18 04/24/18 08:00 History 20 mg Sucralfate [Carafate] 1 gram PO DAILY #0 09/21/17 04/26/18 04/24/18 12:00 History 1 gm amLODIPine 5 mg PO DAILY 09/21/17 04/26/18 04/24/18 21:00 History 5 mg Losartan [Cozaar] 100 mg PO QDAY 04/26/18 04/26/18 04/24/18 21:00 History Spironolactone [Aldactone] 25 mg PO QDAY 04/26/18 04/26/18 04/24/18 08:00 History Torsemide [Demadex] 2.5 mg PO 3XW 04/26/18 04/26/18 Unknown History Active Medications: Generic Name Dose Route Start Last Admin Trade Name Freq PRN Reason Stop Dose Admin Acetaminophen 650 mg 04/26/18 02:48 04/29/18 10:56 Tylenol PO 650 mg Q4H PRN Administration Fever >101 Acetaminophen/Hydrocodone Bitart 1 each 04/26/18 02:53 04/26/18 10:58 [place] 5/325 PO 1 each Q6HR PRN Administration Pain Clopidogrel Bisulfate 75 mg 04/26/18 10:00 04/29/18 08:59 Plavix PO 75 mg DAILY FREDI Administration Dextrose 50 ml 04/26/18 03:10 D50w (25gm) Syringe IV PRN PRN Hypoglycemia Enoxaparin Sodium 40 mg 04/28/18 22:00 04/28/18 22:04 Lovenox SUB-Q Not Given QDAY@2200 FREDI Famotidine 20 mg 04/26/18 10:00 04/29/18 08:59 Pepcid PO 20 mg DAILY FREDI Administration Norepinephrine 4 mg in 250 mls @ 7.5 mls/hr 04/26/18 03:00 04/26/18 08:15 Levophed Drip 4 Mg/Ns 250 Ml IV 0 mcg/min TITR FREDI 0 mls/hr Titration Protocol 2 MCG/MIN Levofloxacin/Dextrose 750 mg in 150 mls @ 100 mls/hr 04/29/18 10:00 04/29/18 09:00 Levaquin 750mg/150ml IV 100 mls/hr Q24HR FREDI Administration Protocol Magnesium Hydroxide 30 ml 04/28/18 11:58 04/28/18 17:20 Milk Of Magnesia PO 30 ml QDAY PRN Administration Constipation Ondansetron HCl 4 mg 04/26/18 02:49 Zofran IV Q8H PRN Nausea And Vomiting Pravastatin Sodium 80 mg 04/26/18 22:00 04/28/18 22:02 Pravachol PO 80 mg QHS FREDI Administration Sodium Bicarbonate 650 mg 04/28/18 20:00 04/29/18 08:08 Sodium Bicarbonate PO 650 mg TID FREDI Administration Sucralfate 1 gm 04/26/18 10:00 04/29/18 08:59 Carafate PO 1 gm DAILY FREDI Administration
[2018-04-29] MEDS: PRAVACHOL PO SCH (21:51)
[2018-04-29] MEDS: LOVENOX SUB-Q SCH (21:54)
[2018-04-30 05:40] LABS: Basophils % (Auto) 0.2 % (0.0-1.8); Eosinophils # (Auto) 0.1 K/mm3 (0.0-0.4); Eosinophils % (Auto) 0.6 % (0.0-4.3); Hematocrit 24.9 % (35.5-45.6); Hemoglobin 7.6 gm/dl (11.8-15.2); Lymphocytes # (Auto) 0.8 K/mm3 (1.2-5.4); Lymphocytes % (Auto) 5.8 % (13.4-35.0); Mean Corpuscular HGB Conc 31 % (32-34); Monocytes # (Auto) 0.6 K/mm3 (0.0-0.8); Monocytes % (Auto) 4.6 % (0.0-7.3); Platelet Count 237 K/mm3 (140-440); Red Blood Count 3.61 M/mm3 (3.65-5.03); Red Cell Distribution Width 18.5 % (13.2-15.2)
[2018-04-30] MEDS: TYLENOL PO PRN ×2 (05:40→11:10)
[2018-04-30 05:41] LABS: Mean Corpuscular Volume 69 fl (84-94)
[2018-04-30 06:09] LABS: Alanine Aminotransferase 12 units/L (7-56); Albumin 1.2 g/dL (3.9-5); BUN/Creatinine Ratio 15; Blood Urea Nitrogen 16 mg/dL (9-20); Calcium 7.6 mg/dL (8.4-10.2); Hemolysis Index 5
[2018-04-30] MEDS: SODIUM BICARBONATE PO SCH ×3 (07:39→21:06)
--- NOTE | 2018-04-30 07:41 | Progress Note ---
Assessment and Plan Assessment and plan: 77 yo man with a history of hypertension, CVA with right sided weakness, IDDM, dyslipidemia, GERD, Asthma, OA and recent DEVIN who presented to [facility] ED with AMS,, right shoulder pains per daughter. He was admitted for hypotension, not responding to IVF resuscitation; therefore, right femoral line place in ED and admitted to ICU. Review of old records shows that patient was just discharged on 04/11/2018 after treatment of gout, right leg swelling, CHF, ARF. Admitted with altered level of consciousness and hypotension requiring Levophed --Neck pain; probably muscle spasm Advised muscle relaxers, pain medications, neck Support Physical therapy, Family did not want muscle relaxers --Metabolic encephalopathy/altered level of consciousness; Back to baseline, supportive care --Hypovolemic shock; present on admission, requiring levophed:off Pressor blood pressures are reasonable level, --Possible pneumonia/left lower on CT abdomen; empiric antibiotics, supportive care --Acute kidney injury; vasomotor nephropathy; resolved Nephrology following, avoid nephrotoxins, d/c IV fluids --Left kidney atrophy /Chronic hydronephrosis; urology following, continue Martinez catheterization --Hyponatremia/hypokalemia; resolved, closely monitor electrolytes --Severe malnutrition; hypo albuminemia; albumin 2.1 Nutrition supplements, Ensure Plus 3 times a day --History of CVA with right-sided weakness; supportive care Physical therapy, continue Plavix and statin --DVT prophylaxis; family refused Lovenox, continue SCDs --Full CODE STATUS --Physical therapy/OT Discharge planning; possible acute rehabilitation at DC planning when medically stable Closely monitor the patient and adjust management as needed I discussed patient's condition, treatment plan in detail with the daughter and the other family members, answered all their questions Possible discharge in 1-2 days if stable DC planning discussed with the case management History Interval history: Patient seen and examined,medical records reviewed c/o some neck pain and sisters at the bed side Not in acute distress. Vital signs noted Family did not want Lovenox Hospitalist Physical - Constitutional Vitals: Temp Pulse Resp BP Pulse Ox 99.5 F 108 H 18 115/53 95 04/30/18 02:18 04/30/18 02:47 04/30/18 05:40 04/30/18 02:18 04/29/18 22:00 General appearance: Present: no acute distress, well-nourished, obese, other (responding appropriately) - EENT Eyes: Present: PERRL, EOM intact - Neck Neck: Present: supple, normal ROM - Respiratory Respiratory: bilateral: diminished, negative: rales, rhonchi, wheezing - Cardiovascular Rhythm: regular Heart Sounds: Present: S1 & S2 - Extremities Extremities: no ischemia, No edema - Abdominal General gastrointestinal: soft, non-tender, non-distended, normal bowel sounds - Integumentary Integumentary: Present: clear, warm - Psychiatric Psychiatric: appropriate mood/affect, cooperative - Neurologic Neurologic: other (CVA with residual weakness) Results - Labs CBC & Chem 7: 04/30/18 05:12 04/30/18 05:12 Labs: Laboratory Last Values WBC 13.2 K/mm3 (4.5-11.0) H 04/30/18 05:12 RBC 3.61 M/mm3 (3.65-5.03) L 04/30/18 05:12 Hgb 7.6 gm/dl (11.8-15.2) L 04/30/18 05:12 Hct 24.9 % (35.5-45.6) L 04/30/18 05:12 MCV 69 fl (84-94) L 04/30/18 05:12 MCH 21 pg (28-32) L 04/30/18 05:12 MCHC 31 % (32-34) L 04/30/18 05:12 RDW 18.5 % (13.2-15.2) H 04/30/18 05:12 Plt Count 237 K/mm3 (140-440) 04/30/18 05:12 Lymph % (Auto) 5.8 % (13.4-35.0) L 04/30/18 05:12 [place] % (Auto) 4.6 % (0.0-7.3) 04/30/18 05:12 Eos % (Auto) 0.6 % (0.0-4.3) 04/30/18 05:12 Baso % (Auto) 0.2 % (0.0-1.8) 04/30/18 05:12 Lymph # 0.8 K/mm3 (1.2-5.4) L 04/30/18 05:12 [place] # 0.6 K/mm3 (0.0-0.8) 04/30/18 05:12 Eos # 0.1 K/mm3 (0.0-0.4) 04/30/18 05:12 Baso # 0.0 K/mm3 (0.0-0.1) 04/30/18 05:12 Add Manual Diff Complete 04/25/18 22:26 Total Counted 100 04/25/18 22:26 Seg Neutrophils % 88.8 % (40.0-70.0) H 04/30/18 05:12 Seg Neuts % (Manual) 91.0 % (40.0-70.0) H 04/25/18 22:26 Band Neutrophils % 3.0 % 04/25/18 22:26 Lymphocytes % (Manual) 4.0 % (13.4-35.0) L 04/25/18 22:26 Reactive Lymphs % (Man) 0 % 04/25/18 22:26 Monocytes % (Manual) 2.0 % (0.0-7.3) 04/25/18 22:26 Eosinophils % (Manual) 0 % (0.0-4.3) 04/25/18 22:26 Basophils % (Manual) 0 % (0.0-1.8) 04/25/18 22:26 Metamyelocytes % 0 % 04/25/18 22:26 Myelocytes % 0 % 04/25/18 22:26 Promyelocytes % 0 % 04/25/18 22:26 Blast Cells % 0 % 04/25/18 22:26 Nucleated RBC % Not Reportable 04/25/18 22:26 Seg Neutrophils # 11.8 K/mm3 (1.8-7.7) H 04/30/18 05:12 Seg Neutrophils # Man 10.0 K/mm3 (1.8-7.7) H 04/25/18 22:26 Band Neutrophils # 0.3 K/mm3 04/25/18 22:26 Lymphocytes # (Manual) 0.4 K/mm3 (1.2-5.4) L 04/25/18 22:26 Abs React Lymphs (Man) 0.0 K/mm3 04/25/18 22:26 Monocytes # (Manual) 0.2 K/mm3 (0.0-0.8) 04/25/18 22:26 Eosinophils # (Manual) 0.0 K/mm3 (0.0-0.4) 04/25/18 22:26 Basophils # (Manual) 0.0 K/mm3 (0.0-0.1) 04/25/18 22:26 Metamyelocytes # 0.0 K/mm3 04/25/18 22:26 Myelocytes # 0.0 K/mm3 04/25/18 22:26 Promyelocytes # 0.0 K/mm3 04/25/18 22:26 Blast Cells # 0.0 K/mm3 04/25/18 22:26 WBC Morphology Not Reportable 04/25/18 22:26 Hypersegmented Neuts Not Reportable 04/25/18 22:26 Hyposegmented Neuts Not Reportable 04/25/18 22:26 Hypogranular Neuts Not Reportable 04/25/18 22:26 Smudge Cells Not Reportable 04/25/18 22:26 Toxic Granulation Not Reportable 04/25/18 22:26 Toxic Vacuolation Not Reportable 04/25/18 22:26 Dohle Bodies Not Reportable 04/25/18 22:26 Pelger-Huet Anomaly Not Reportable 04/25/18 22:26 Alba Rods Not Reportable 04/25/18 22:26 Platelet Estimate Consistent w auto 04/25/18 22:26 Clumped Platelets Not Reportable 04/25/18 22:26 Plt Clumps, EDTA Not Reportable 04/25/18 22:26 Large Platelets Not Reportable 04/25/18 22:26 Giant Platelets Not Reportable 04/25/18 22:26 Platelet Satelliting Not Reportable 04/25/18 22:26 Plt Morphology Comment Not Reportable 04/25/18 22:26 RBC Morphology Not Reportable 04/25/18 22:26 Dimorphic RBCs Not Reportable 04/25/18 22:26 Polychromasia Not Reportable 04/25/18 22:26 Hypochromasia Not Reportable 04/25/18 22:26 Poikilocytosis Not Reportable 04/25/18 22:26 Anisocytosis 1+ 04/25/18 22:26 Microcytosis Not Reportable 04/25/18 22:26 Macrocytosis Not Reportable 04/25/18 22:26 Spherocytes Not Reportable 04/25/18 22:26 Pappenheimer Bodies Not Reportable 04/25/18 22:26 Sickle Cells Not Reportable 04/25/18 22:26 Target Cells Not Reportable 04/25/18 22:26 Tear Drop Cells Not Reportable 04/25/18 22:26 Ovalocytes Not Reportable 04/25/18 22:26 Helmet Cells Not Reportable 04/25/18 22:26 [place] Bodies Not Reportable 04/25/18 22:26 [place] Rings Not Reportable 04/25/18 22:26 Atkinson Cells Not Reportable 04/25/18 22:26 Bite Cells Not Reportable 04/25/18 22:26 Crenated Cell Not Reportable 04/25/18 22:26 Elliptocytes 1+ 04/25/18 22:26 Acanthocytes (Spur) Not Reportable 04/25/18 22:26 Rouleaux Not Reportable 04/25/18 22:26 Hemoglobin C Crystals Not Reportable 04/25/18 22:26 Schistocytes Not Reportable 04/25/18 22:26 Malaria parasites Not Reportable 04/25/18 22:26 James Bodies Not Reportable 04/25/18 22:26 Hem Pathologist Commnt No 04/25/18 22:26 Sodium 138 mmol/L (137-145) 04/30/18 05:12 Potassium 4.2 mmol/L (3.6-5.0) 04/30/18 05:12 Chloride 108.1 mmol/L (98-107) H 04/30/18 05:12 Carbon Dioxide 21 mmol/L (22-30) L 04/30/18 05:12 Anion Gap 13 mmol/L 04/30/18 05:12 BUN 16 mg/dL (9-20) 04/30/18 05:12 Creatinine 1.1 mg/dL (0.8-1.5) 04/30/18 05:12 Estimated GFR > 60 ml/min 04/30/18 05:12 BUN/Creatinine Ratio 15 % 04/30/18 05:12 Glucose 111 mg/dL (75-100) H 04/30/18 05:12 POC Glucose 104 (70-105) 04/30/18 07:27 Lactic Acid 1.00 mmol/L (0.7-2.0) 04/26/18 03:04 Uric Acid 8.6 mg/dL (3.5-7.6) H 04/26/18 00:26 Calcium 7.6 mg/dL (8.4-10.2) L 04/30/18 05:12 Phosphorus 2.60 mg/dL (2.5-4.5) 04/28/18 04:48 Magnesium 1.70 mg/dL (1.7-2.3) 04/30/18 05:12 Total Bilirubin 0.40 mg/dL (0.1-1.2) 04/30/18 05:12 AST 20 units/L (5-40) 04/30/18 05:12 ALT 12 units/L (7-56) 04/30/18 05:12 Alkaline Phosphatase 119 units/L (35-129) 04/30/18 05:12 Ammonia 20.0 umol/L (25-60) L 04/25/18 22:26 Total Creatine Kinase 24 units/L (55-170) L 04/26/18 13:54 CK-MB (CK-2) 1.8 ng/mL (0.0-4.0) 04/26/18 13:54 CK-MB (CK-2) Rel Index 7.5 (0-4) H 04/26/18 13:54 Troponin T 0.020 ng/mL (0.00-0.029) 04/26/18 13:54 Total Protein 5.0 g/dL (6.3-8.2) L D 04/30/18 05:12 Albumin 1.2 g/dL (3.9-5) L 04/30/18 05:12 Albumin/Globulin Ratio 0.3 % 04/30/18 05:12 Triglycerides 89 mg/dL (2-149) 04/25/18 22:26 Cholesterol 91 mg/dL (50-199) 04/25/18 22:26 LDL Cholesterol Direct 59 mg/dL (50-130) 04/25/18 22:26 HDL Cholesterol 23 mg/dL (40-59) L 04/25/18 22:26 Cholesterol/HDL Ratio 3.95 % 04/25/18 22:26 TSH 1.510 mlU/mL (0.270-4.200) 04/25/18 22:26 Urine Color Yellow (Yellow) 04/26/18 18:29 Urine Turbidity Clear (Clear) 04/26/18 18:29 Urine pH 5.0 (5.0-7.0) 04/26/18 18:29 Ur Specific [place] 1.008 (1.003-1.030) 04/26/18 18:29 Urine Protein <15 mg/dl mg/dL (Negative) 04/26/18 18:29 Urine Glucose (UA) Neg mg/dL (Negative) 04/26/18 18:29 Urine Ketones Tr mg/dL (Negative) 04/26/18 18:29 Urine Blood Mod (Negative) 04/26/18 18:29 Urine Nitrite Neg (Negative) 04/26/18 18:29 Urine Bilirubin Neg (Negative) 04/26/18 18:29 Urine Urobilinogen < 2.0 mg/dL (<2.0) 04/26/18 18:29 Ur Leukocyte Esterase Mod (Negative) 04/26/18 18:29 Urine WBC (Auto) 17.0 /HPF (0.0-6.0) H 04/26/18 18:29 Urine RBC (Auto) 64.0 /HPF (0.0-6.0) 04/26/18 18:29 U Epithel Cells (Auto) < 1.0 /HPF (0-13.0) 04/26/18 18:29 Urine Mucus Few /HPF 04/26/18 18:29 Urine Eosinophils 3% (None Seen) 04/26/18 18:29 Urine Creatinine 62.1 mg/dL (0.1-20.0) H 04/26/18 18:29 Urine Sodium 101 mmol/L 04/26/18 18:29 Fraction Sodium Excret 2.3 04/26/18 18:29 Plasma/Serum Alcohol < 0.01 % (0-0.07) 04/25/18 22:26 Nutrition/Malnutrition Assess - Dietary Evaluation Nutrition/Malnutrition Findings: Nutrition Notes Start: 04/27/18 14:56 Freq: Status: Active Protocol: Document 04/28/18 14:44 RM (Rec: 04/28/18 14:52 RM [id number]) Nutrition Notes Initial or Follow up Assessment Current Diagnosis Acute Kidney Injury CKD(stage I-IV) Diabetes Hypertension Other Pertinent Diagnosis GERD, Hypercholesterolemia, Acute metabolic encephalopathy ,AMS Subjective/Other Information Pt, pt , pt daughter, and pt granddaughter in room at time of visit. Pt family was not aware that pt has DM. Food And Beverage Director advised family to ask nurse to ask MD to come speak with them regarding any questions com writer was unable to answer. Reviewed Carbohydrate Counting. Gave handout. #1 Nutrition Diagnosis Food and nutrition-related knowledge deficit Etiology lack of prior education As Evidenced by Signs and Symptoms no prior knowledge of need for food and nutrition recommendations Nutrition Intervention Teaching Recipient Patient Family Spouse Learning Readiness Good Teaching Methods Discussion Handout Response to Teaching Verbalize understanding Education Handouts Provided Carbohydrate Counting for People with Diabetes Barriers to Learning No Barriers RD phone number provided Yes Patient aware of follow up options Yes Goal #1 Utilize carbohydrate counting Revisit per MD consult or patient Sign Off request:
[2018-04-30] MEDS ORDERED: FLEXERIL PO PRN (09:00)
--- NOTE | 2018-04-30 09:26 | Progress Note ---
Assessment and Plan 1. Acute kidney injury: Patient admitted with elevated creatinine from his baseline. Likely Vasomotor / hemodynamic DEVIN in the setting of hypotension. Renal function is better. Left atrophic kidney. 2. FEN: Hypovolemia, improved. Metabolic acidosis, on sodium bicarbonate. 3. Hypovolemic shock: Resolved. 4. Acute metabolic encephalopathy. 5. Anemia. 6. H/o CVA with right hemiparesis. Subjective Date of service: 04/30/18 Principal diagnosis: retention Interval history: Patient was seen and examined at the bedside. Objective - Vital Signs Vital signs: Vital Signs - 12hr 04/29/18 04/30/18 04/30/18 22:00 02:18 02:47 Temperature 99.5 F Pulse Rate 125 H 108 H Pulse Rate [ 120 H From Monitor] Respiratory 22 20 Rate Blood Pressure 115/53 O2 Sat by Pulse 95 Oximetry 04/30/18 04/30/18 04/30/18 05:40 07:51 07:52 Temperature 98.8 F Pulse Rate 114 H Pulse Rate [ From Monitor] Respiratory 18 21 Rate Blood Pressure 102/65 O2 Sat by Pulse 96 Oximetry - General Appearance General appearance: well-developed, well-nourished, appears stated age, other (not in distress) EENT: ATNC, PERRL Neck: supple Respiratory: Present: Clear to Ascultation Cardiology: regular, S1S2, no murmurs Gastrointestinal: normoactive bowel sounds, no tenderness, no distended Integumentary: warm and dry, chronic venous stasis Neurologic: confused, disoriented, hemiplegic (right side) Musculoskeletal: other (no edema) - Lab 04/30/18 05:12 04/30/18 05:12 Most recent lab results Calcium 7.6 mg/dL (8.4-10.2) L 04/30/18 05:12 Phosphorus 2.60 mg/dL (2.5-4.5) 04/28/18 04:48 Magnesium 1.70 mg/dL (1.7-2.3) 04/30/18 05:12 Urine Creatinine 62.1 mg/dL (0.1-20.0) H 04/26/18 18:29 Urine Sodium 101 mmol/L 04/26/18 18:29 Medications & Allergies - Medications Allergies/Adverse Reactions: Allergies Penicillins Allergy (Verified 04/11/18 16:00) Unknown Home Medications: Home Medications Medication Instructions Recorded Confirmed Last Taken Type Clopidogrel Bisulfate [Plavix] 75 mg PO DAILY #0 09/21/17 04/26/18 04/24/18 12:00 History Famotidine [Pepcid] 20 mg PO DAILY #0 09/21/17 04/26/18 04/24/18 History 20mg Simvastatin 40 mg PO HS 09/21/17 04/26/18 04/24/18 08:00 History 20 mg Sucralfate [Carafate] 1 gram PO DAILY #0 09/21/17 04/26/18 04/24/18 12:00 History 1 gm amLODIPine 5 mg PO DAILY 09/21/17 04/26/18 04/24/18 21:00 History 5 mg Losartan [Cozaar] 100 mg PO QDAY 04/26/18 04/26/18 04/24/18 21:00 History Spironolactone [Aldactone] 25 mg PO QDAY 04/26/18 04/26/18 04/24/18 08:00 History Torsemide [Demadex] 2.5 mg PO 3XW 04/26/18 04/26/18 Unknown History Active Medications: Generic Name Dose Route Start Last Admin Trade Name Freq PRN Reason Stop Dose Admin Acetaminophen 650 mg 04/26/18 02:48 04/30/18 05:40 Tylenol PO 650 mg Q4H PRN Administration Fever >101 Acetaminophen/Hydrocodone Bitart 1 each 04/26/18 02:53 04/26/18 10:58 [place] 5/325 PO 1 each Q6HR PRN Administration Pain Clopidogrel Bisulfate 75 mg 04/26/18 10:00 04/29/18 08:59 Plavix PO 75 mg DAILY FREDI Administration Cyclobenzaprine HCl 5 mg 04/30/18 09:00 Flexeril PO Q8H PRN Muscle Spasm Dextrose 50 ml 04/26/18 03:10 D50w (25gm) Syringe IV PRN PRN Hypoglycemia Famotidine 20 mg 04/26/18 10:00 04/29/18 08:59 Pepcid PO 20 mg DAILY FREDI Administration Norepinephrine 4 mg in 250 mls @ 7.5 mls/hr 04/26/18 03:00 04/26/18 08:15 Levophed Drip 4 Mg/Ns 250 Ml IV 0 mcg/min TITR FREDI 0 mls/hr Titration Protocol 2 MCG/MIN Levofloxacin 750 mg 04/30/18 10:00 Levaquin PO Q24HR [facility] Magnesium Hydroxide 30 ml 04/28/18 11:58 04/28/18 17:20 Milk Of Magnesia PO 30 ml QDAY PRN Administration Constipation Ondansetron HCl 4 mg 04/26/18 02:49 Zofran IV Q8H PRN Nausea And Vomiting Pravastatin Sodium 80 mg 04/26/18 22:00 04/29/18 21:51 Pravachol PO 80 mg QHS FREDI Administration Sodium Bicarbonate 650 mg 04/28/18 20:00 04/30/18 07:39 Sodium Bicarbonate PO 650 mg TID FREDI Administration Sucralfate 1 gm 04/26/18 10:00 04/29/18 08:59 Carafate PO 1 gm DAILY FREDI Administration
[2018-04-30] MEDS: CARAFATE PO SCH (09:54)
[2018-04-30] MEDS: LEVAQUIN PO SCH (09:54)
[2018-04-30] MEDS: PEPCID PO SCH (09:54)
[2018-04-30] MEDS: PLAVIX PO SCH (09:54)
[2018-04-30] MEDS: MILK OF MAGNESIA PO PRN (18:07)
[2018-04-30] MEDS: PRAVACHOL PO SCH (21:06)
[2018-05-01 04:26] LABS: Basophils % (Auto) 0.2 % (0.0-1.8); Eosinophils # (Auto) 0.1 K/mm3 (0.0-0.4); Eosinophils % (Auto) 0.6 % (0.0-4.3); Hematocrit 24.8 % (35.5-45.6); Hemoglobin 7.6 gm/dl (11.8-15.2); Lymphocytes # (Auto) 0.8 K/mm3 (1.2-5.4); Lymphocytes % (Auto) 5.8 % (13.4-35.0); Mean Corpuscular HGB Conc 31 % (32-34); Monocytes # (Auto) 0.6 K/mm3 (0.0-0.8); Monocytes % (Auto) 4.8 % (0.0-7.3); Platelet Count 235 K/mm3 (140-440); Red Blood Count 3.61 M/mm3 (3.65-5.03); Red Cell Distribution Width 18.8 % (13.2-15.2)
[2018-05-01 04:28] LABS: Mean Corpuscular Volume 69 fl (84-94)
[2018-05-01 05:30] LABS: BUN/Creatinine Ratio 16; Blood Urea Nitrogen 19 mg/dL (9-20); Calcium 7.8 mg/dL (8.4-10.2); Hemolysis Index 0
--- NOTE | 2018-05-01 08:38 | Progress Note ---
Assessment and Plan Assessment and plan: 77 yo man with a history of hypertension, CVA with right sided weakness, IDDM, dyslipidemia, GERD, Asthma, OA and recent DEVIN who presented to [facility] ED with AMS,, right shoulder pains per daughter. He was admitted for hypotension, not responding to IVF resuscitation; therefore, right femoral line place in ED and admitted to ICU. Review of old records shows that patient was just discharged on 04/11/2018 after treatment of gout, right leg swelling, CHF, ARF. Admitted with altered level of consciousness and hypotension requiring Levophed --Left kidney atrophy 19% functional /Chronic Lt.hydronephrosis; urology following, continue Martinez catheterization,IR evaluation per --Neck pain; probably muscle spasm:check cervical spine x ray muscle relaxers, pain medications, neck Support Physical therapy, Family did not want muscle relaxers --Metabolic encephalopathy/altered level of consciousness; Back to baseline, supportive care --Hypovolemic shock; POA, off Pressor blood pressures are reasonable level, --Possible pneumonia/left lower on CT abdomen; empiric antibiotics, Cultures negative to date --Acute kidney injury; vasomotor nephropathy; resolved --Hyponatremia/hypokalemia; resolved, closely monitor electrolytes --Severe malnutrition; hypo albuminemia; albumin 2.1 Nutrition supplements, Ensure Plus 3 times a day --History of CVA with right-sided weakness; supportive care Physical therapy, continue Plavix and statin --DVT prophylaxis; family refused Lovenox, continue SCDs --Full CODE STATUS --Physical therapy/OT I discussed patient's condition, treatment plan in detail with the daughter and the other family members, answered all their questions Possible discharge in 1-2 days if stable DC planning discussed with the case management,Subacute rehab. History Interval history: Patient seen and examined medical records reviewed No new Events reported by the nursing Patient alert and awake cheerful Denies any neck pain Not in acute distress Vital signs noted Hospitalist Physical - Constitutional Vitals: Temp Pulse Resp BP Pulse Ox 99.2 F 109 H 20 102/59 96 05/01/18 07:43 05/01/18 07:43 05/01/18 07:43 05/01/18 07:43 05/01/18 07:43 General appearance: Present: no acute distress, well-nourished, obese, other (alert awake oriented) - EENT Eyes: Present: PERRL, EOM intact - Neck Neck: Present: supple, normal ROM - Respiratory Respiratory effort: normal Respiratory: bilateral: diminished, negative: rales, rhonchi, wheezing - Cardiovascular Rhythm: regular Heart Sounds: Present: S1 & S2 - Extremities Extremities: no ischemia, No edema - Abdominal General gastrointestinal: soft, non-tender, non-distended, normal bowel sounds - Integumentary Integumentary: Present: clear, warm - Psychiatric Psychiatric: cooperative - Neurologic Neurologic: other (old CVA with residual right-sided weakness) Results - Labs CBC & Chem 7: 05/01/18 03:47 05/01/18 03:47 Labs: Laboratory Last Values WBC 13.1 K/mm3 (4.5-11.0) H 05/01/18 03:47 RBC 3.61 M/mm3 (3.65-5.03) L 05/01/18 03:47 Hgb 7.6 gm/dl (11.8-15.2) L 05/01/18 03:47 Hct 24.8 % (35.5-45.6) L 05/01/18 03:47 MCV 69 fl (84-94) L 05/01/18 03:47 MCH 21 pg (28-32) L 05/01/18 03:47 MCHC 31 % (32-34) L 05/01/18 03:47 RDW 18.8 % (13.2-15.2) H 05/01/18 03:47 Plt Count 235 K/mm3 (140-440) 05/01/18 03:47 Lymph % (Auto) 5.8 % (13.4-35.0) L 05/01/18 03:47 Williamson % (Auto) 4.8 % (0.0-7.3) 05/01/18 03:47 Eos % (Auto) 0.6 % (0.0-4.3) 05/01/18 03:47 Baso % (Auto) 0.2 % (0.0-1.8) 05/01/18 03:47 Lymph # 0.8 K/mm3 (1.2-5.4) L 05/01/18 03:47 Williamson # 0.6 K/mm3 (0.0-0.8) 05/01/18 03:47 Eos # 0.1 K/mm3 (0.0-0.4) 05/01/18 03:47 Baso # 0.0 K/mm3 (0.0-0.1) 05/01/18 03:47 Add Manual Diff Complete 04/25/18 22:26 Total Counted 100 04/25/18 22:26 Seg Neutrophils % 88.6 % (40.0-70.0) H 05/01/18 03:47 Seg Neuts % (Manual) 91.0 % (40.0-70.0) H 04/25/18 22:26 Band Neutrophils % 3.0 % 04/25/18 22:26 Lymphocytes % (Manual) 4.0 % (13.4-35.0) L 04/25/18 22:26 Reactive Lymphs % (Man) 0 % 04/25/18 22:26 Monocytes % (Manual) 2.0 % (0.0-7.3) 04/25/18 22:26 Eosinophils % (Manual) 0 % (0.0-4.3) 04/25/18 22:26 Basophils % (Manual) 0 % (0.0-1.8) 04/25/18 22:26 Metamyelocytes % 0 % 04/25/18 22:26 Myelocytes % 0 % 04/25/18 22:26 Promyelocytes % 0 % 04/25/18 22:26 Blast Cells % 0 % 04/25/18 22:26 Nucleated RBC % Not Reportable 04/25/18 22:26 Seg Neutrophils # 11.6 K/mm3 (1.8-7.7) H 05/01/18 03:47 Seg Neutrophils # Man 10.0 K/mm3 (1.8-7.7) H 04/25/18 22:26 Band Neutrophils # 0.3 K/mm3 04/25/18 22:26 Lymphocytes # (Manual) 0.4 K/mm3 (1.2-5.4) L 04/25/18 22:26 Abs React Lymphs (Man) 0.0 K/mm3 04/25/18 22:26 Monocytes # (Manual) 0.2 K/mm3 (0.0-0.8) 04/25/18 22:26 Eosinophils # (Manual) 0.0 K/mm3 (0.0-0.4) 04/25/18 22:26 Basophils # (Manual) 0.0 K/mm3 (0.0-0.1) 04/25/18 22:26 Metamyelocytes # 0.0 K/mm3 04/25/18 22:26 Myelocytes # 0.0 K/mm3 04/25/18 22:26 Promyelocytes # 0.0 K/mm3 04/25/18 22:26 Blast Cells # 0.0 K/mm3 04/25/18 22:26 WBC Morphology Not Reportable 04/25/18 22:26 Hypersegmented Neuts Not Reportable 04/25/18 22:26 Hyposegmented Neuts Not Reportable 04/25/18 22:26 Hypogranular Neuts Not Reportable 04/25/18 22:26 Smudge Cells Not Reportable 04/25/18 22:26 Toxic Granulation Not Reportable 04/25/18 22:26 Toxic Vacuolation Not Reportable 04/25/18 22:26 Dohle Bodies Not Reportable 04/25/18 22:26 Pelger-Huet Anomaly Not Reportable 04/25/18 22:26 Alba Rods Not Reportable 04/25/18 22:26 Platelet Estimate Consistent w auto 04/25/18 22:26 Clumped Platelets Not Reportable 04/25/18 22:26 Plt Clumps, EDTA Not Reportable 04/25/18 22:26 Large Platelets Not Reportable 04/25/18 22:26 Giant Platelets Not Reportable 04/25/18 22:26 Platelet Satelliting Not Reportable 04/25/18 22:26 Plt Morphology Comment Not Reportable 04/25/18 22:26 RBC Morphology Not Reportable 04/25/18 22:26 Dimorphic RBCs Not Reportable 04/25/18 22:26 Polychromasia Not Reportable 04/25/18 22:26 Hypochromasia Not Reportable 04/25/18 22:26 Poikilocytosis Not Reportable 04/25/18 22:26 Anisocytosis 1+ 04/25/18 22:26 Microcytosis Not Reportable 04/25/18 22:26 Macrocytosis Not Reportable 04/25/18 22:26 Spherocytes Not Reportable 04/25/18 22:26 Pappenheimer Bodies Not Reportable 04/25/18 22:26 Sickle Cells Not Reportable 04/25/18 22:26 Target Cells Not Reportable 04/25/18 22:26 Tear Drop Cells Not Reportable 04/25/18 22:26 Ovalocytes Not Reportable 04/25/18 22:26 Helmet Cells Not Reportable 04/25/18 22:26 M[place] Bodies Not Reportable 04/25/18 22:26 [place] Rings Not Reportable 04/25/18 22:26 [place] Cells Not Reportable 04/25/18 22:26 Bite Cells Not Reportable 04/25/18 22:26 Crenated Cell Not Reportable 04/25/18 22:26 Elliptocytes 1+ 04/25/18 22:26 Acanthocytes (Spur) Not Reportable 04/25/18 22:26 Rouleaux Not Reportable 04/25/18 22:26 Hemoglobin C Crystals Not Reportable 04/25/18 22:26 Schistocytes Not Reportable 04/25/18 22:26 Malaria parasites Not Reportable 04/25/18 22:26 James Bodies Not Reportable 04/25/18 22:26 Hem Pathologist Commnt No 04/25/18 22:26 Sodium 142 mmol/L (137-145) 05/01/18 03:47 Potassium 4.3 mmol/L (3.6-5.0) 05/01/18 03:47 Chloride 108.6 mmol/L (98-107) H 05/01/18 03:47 Carbon Dioxide 22 mmol/L (22-30) 05/01/18 03:47 Anion Gap 16 mmol/L 05/01/18 03:47 BUN 19 mg/dL (9-20) 05/01/18 03:47 Creatinine 1.2 mg/dL (0.8-1.5) 05/01/18 03:47 Estimated GFR > 60 ml/min 05/01/18 03:47 BUN/Creatinine Ratio 16 % 05/01/18 03:47 Glucose 107 mg/dL (75-100) H 05/01/18 03:47 POC Glucose 113 (70-105) H 05/01/18 07:22 Lactic Acid 1.00 mmol/L (0.7-2.0) 04/26/18 03:04 Uric Acid 8.6 mg/dL (3.5-7.6) H 04/26/18 00:26 Calcium 7.8 mg/dL (8.4-10.2) L 05/01/18 03:47 Phosphorus 2.60 mg/dL (2.5-4.5) 04/28/18 04:48 Magnesium 1.70 mg/dL (1.7-2.3) 04/30/18 05:12 Total Bilirubin 0.40 mg/dL (0.1-1.2) 04/30/18 05:12 AST 20 units/L (5-40) 04/30/18 05:12 ALT 12 units/L (7-56) 04/30/18 05:12 Alkaline Phosphatase 119 units/L (35-129) 04/30/18 05:12 Ammonia 20.0 umol/L (25-60) L 04/25/18 22:26 Total Creatine Kinase 24 units/L (55-170) L 04/26/18 13:54 CK-MB (CK-2) 1.8 ng/mL (0.0-4.0) 04/26/18 13:54 CK-MB (CK-2) Rel Index 7.5 (0-4) H 04/26/18 13:54 Troponin T 0.020 ng/mL (0.00-0.029) 04/26/18 13:54 Total Protein 5.0 g/dL (6.3-8.2) L D 04/30/18 05:12 Albumin 1.2 g/dL (3.9-5) L 04/30/18 05:12 Albumin/Globulin Ratio 0.3 % 04/30/18 05:12 Triglycerides 89 mg/dL (2-149) 04/25/18 22:26 Cholesterol 91 mg/dL (50-199) 04/25/18 22:26 LDL Cholesterol Direct 59 mg/dL (50-130) 04/25/18 22:26 HDL Cholesterol 23 mg/dL (40-59) L 04/25/18 22:26 Cholesterol/HDL Ratio 3.95 % 04/25/18 22:26 TSH 1.510 mlU/mL (0.270-4.200) 04/25/18 22:26 Urine Color Yellow (Yellow) 04/26/18 18:29 Urine Turbidity Clear (Clear) 04/26/18 18:29 Urine pH 5.0 (5.0-7.0) 04/26/18 18:29 Ur Specific [place] 1.008 (1.003-1.030) 04/26/18 18:29 Urine Protein <15 mg/dl mg/dL (Negative) 04/26/18 18:29 Urine Glucose (UA) Neg mg/dL (Negative) 04/26/18 18:29 Urine Ketones Tr mg/dL (Negative) 04/26/18 18:29 Urine Blood Mod (Negative) 04/26/18 18:29 Urine Nitrite Neg (Negative) 04/26/18 18:29 Urine Bilirubin Neg (Negative) 04/26/18 18:29 Urine Urobilinogen < 2.0 mg/dL (<2.0) 04/26/18 18:29 Ur Leukocyte Esterase Mod (Negative) 04/26/18 18:29 Urine WBC (Auto) 17.0 /HPF (0.0-6.0) H 04/26/18 18:29 Urine RBC (Auto) 64.0 /HPF (0.0-6.0) 04/26/18 18:29 U Epithel Cells (Auto) < 1.0 /HPF (0-13.0) 04/26/18 18:29 Urine Mucus Few /HPF 04/26/18 18:29 Urine Eosinophils 3% (None Seen) 04/26/18 18:29 Urine Creatinine 62.1 mg/dL (0.1-20.0) H 04/26/18 18:29 Urine Sodium 101 mmol/L 04/26/18 18:29 Fraction Sodium Excret 2.3 04/26/18 18:29 Plasma/Serum Alcohol < 0.01 % (0-0.07) 04/25/18 22:26 Nutrition/Malnutrition Assess - Dietary Evaluation Nutrition/Malnutrition Findings: Nutrition Notes Start: 04/27/18 14:56 Freq: Status: Active Protocol: Document 04/28/18 14:44 RM (Rec: 04/28/18 14:52 RM [id number]) Nutrition Notes Initial or Follow up Assessment Current Diagnosis Acute Kidney Injury CKD(stage I-IV) Diabetes Hypertension Other Pertinent Diagnosis GERD, Hypercholesterolemia, Acute metabolic encephalopathy ,AMS Subjective/Other Information Pt, pt , pt daughter, and pt granddaughter in room at time of visit. Pt family was not aware that pt has DM. Candy Depositing Machine Operator advised family to ask nurse to ask MD to come speak with them regarding any questions typewriter mechanic was unable to answer. Reviewed Carbohydrate Counting. Gave handout. #1 Nutrition Diagnosis Food and nutrition-related knowledge deficit Etiology lack of prior education As Evidenced by Signs and Symptoms no prior knowledge of need for food and nutrition recommendations Nutrition Intervention Teaching Recipient Patient Family Spouse Learning Readiness Good Teaching Methods Discussion Handout Response to Teaching Verbalize understanding Education Handouts Provided Carbohydrate Counting for People with Diabetes Barriers to Learning No Barriers RD phone number provided Yes Patient aware of follow up options Yes Goal #1 Utilize carbohydrate counting Revisit per MD consult or patient Sign Off request:
--- NOTE | 2018-05-01 09:28 | XRay Report ---
AP AND LATERAL CERVICAL SPINE: History: Neck pain. There is straightening of the normal lordosis. Moderate degenerative disc disease is identified at C4-5, C5-6 and C6-7. The facet joints are unremarkable. No fracture, malalignment or bone lesion is identified. Metallic foreign body consistent with a BB is noted along the left mandible margin. This is presumably chronic. IMPRESSION: Cervical spondylosis. No acute process identified.
--- NOTE | 2018-05-01 09:28 | Progress Note ---
Assessment and Plan 1. Acute kidney injury: Patient admitted with elevated creatinine from his baseline. Likely Vasomotor / hemodynamic DEVIN in the setting of hypotension. Renal function is better. Left atrophic kidney. 2. FEN: Hypovolemia, improved. Metabolic acidosis, on sodium bicarbonate. 3. Hypovolemic shock: Resolved. 4. Acute metabolic encephalopathy. 5. Anemia. 6. H/o CVA with right hemiparesis. Subjective Date of service: 05/01/18 Principal diagnosis: retention Interval history: Patient was seen and examined at the bedside. Objective - Vital Signs Vital signs: Vital Signs - 12hr 05/01/18 05/01/18 02:16 07:43 Temperature 99.6 F 99.2 F Pulse Rate 123 H 109 H Respiratory 20 20 Rate Blood Pressure 100/56 102/59 O2 Sat by Pulse 93 96 Oximetry - General Appearance General appearance: well-developed, well-nourished, appears stated age, other (not in distress) EENT: ATNC, PERRL, mucous membranes moist, vision intact, hearing diminished Neck: supple Respiratory: Present: Clear to Ascultation Cardiology: regular, S1S2, no murmurs Gastrointestinal: normoactive bowel sounds, no tenderness, no distended Integumentary: no rash, warm and dry Neurologic: no asterixis, confused, disoriented, hemiplegic Musculoskeletal: other (no edema) - Lab 05/01/18 03:47 05/01/18 03:47 Most recent lab results Calcium 7.8 mg/dL (8.4-10.2) L 05/01/18 03:47 Phosphorus 2.60 mg/dL (2.5-4.5) 04/28/18 04:48 Magnesium 1.70 mg/dL (1.7-2.3) 04/30/18 05:12 Urine Creatinine 62.1 mg/dL (0.1-20.0) H 04/26/18 18:29 Urine Sodium 101 mmol/L 04/26/18 18:29 Medications & Allergies - Medications Allergies/Adverse Reactions: Allergies Penicillins Allergy (Verified 04/11/18 16:00) Unknown Home Medications: Home Medications Medication Instructions Recorded Confirmed Last Taken Type Clopidogrel Bisulfate [Plavix] 75 mg PO DAILY #0 09/21/17 04/26/18 04/24/18 12:00 History Famotidine [Pepcid] 20 mg PO DAILY #0 09/21/17 04/26/18 04/24/18 History 20mg Simvastatin 40 mg PO HS 09/21/17 04/26/18 04/24/18 08:00 History 20 mg Sucralfate [Carafate] 1 gram PO DAILY #0 09/21/17 04/26/18 04/24/18 12:00 History 1 gm amLODIPine 5 mg PO DAILY 09/21/17 04/26/18 04/24/18 21:00 History 5 mg Losartan [Cozaar] 100 mg PO QDAY 04/26/18 04/26/18 04/24/18 21:00 History Spironolactone [Aldactone] 25 mg PO QDAY 04/26/18 04/26/18 04/24/18 08:00 History Torsemide [Demadex] 2.5 mg PO 3XW 04/26/18 04/26/18 Unknown History Active Medications: Generic Name Dose Route Start Last Admin Trade Name Freq PRN Reason Stop Dose Admin Acetaminophen 650 mg 04/26/18 02:48 04/30/18 11:10 Tylenol PO 650 mg Q4H PRN Administration Fever >101 Acetaminophen/Hydrocodone Bitart 1 each 04/26/18 02:53 04/26/18 10:58 [place] 5/325 PO 1 each Q6HR PRN Administration Pain Clopidogrel Bisulfate 75 mg 04/26/18 10:00 04/30/18 09:54 Plavix PO 75 mg DAILY FREDI Administration Cyclobenzaprine HCl 5 mg 04/30/18 09:00 Flexeril PO Q8H PRN Muscle Spasm Dextrose 50 ml 04/26/18 03:10 D50w (25gm) Syringe IV PRN PRN Hypoglycemia Famotidine 20 mg 04/26/18 10:00 04/30/18 09:54 Pepcid PO 20 mg DAILY FREDI Administration Norepinephrine 4 mg in 250 mls @ 7.5 mls/hr 04/26/18 03:00 04/26/18 08:15 Levophed Drip 4 Mg/Ns 250 Ml IV 0 mcg/min TITR FREDI 0 mls/hr Titration Protocol 2 MCG/MIN Levofloxacin 750 mg 04/30/18 10:00 04/30/18 09:54 Levaquin PO 750 mg Q24HR FREDI Administration Magnesium Hydroxide 30 ml 04/28/18 11:58 04/30/18 18:07 Milk Of Magnesia PO 30 ml QDAY PRN Administration Constipation Ondansetron HCl 4 mg 04/26/18 02:49 Zofran IV Q8H PRN Nausea And Vomiting Pravastatin Sodium 80 mg 04/26/18 22:00 04/30/18 21:06 Pravachol PO 80 mg QHS FREDI Administration Sodium Bicarbonate 650 mg 04/28/18 20:00 04/30/18 21:06 Sodium Bicarbonate PO 650 mg TID FREDI Administration Sucralfate 1 gm 04/26/18 10:00 04/30/18 09:54 Carafate PO 1 gm DAILY FREDI Administration
[2018-05-01] MEDS: LEVAQUIN PO SCH (09:48)
[2018-05-01] MEDS: SODIUM BICARBONATE PO SCH ×3 (09:48→21:59)
[2018-05-01] MEDS: PEPCID PO SCH (09:48)
[2018-05-01] MEDS: CARAFATE PO SCH (09:48)
[2018-05-01] MEDS: PLAVIX PO SCH (09:48)
--- NOTE | 2018-05-01 11:11 | Consultation ---
History of Present Illness - Reason for Consult Consult date: 05/01/18 Left chronic UPJ obstruction - History of Present Illness 77-year-old -[place] male, who presented to the ED with hypotension and AMS. The patient reportedly a former smoker and presented to the ER slightly confused with low blood pressure. He was dialyzed and reportedly admitted initially to the ICU at [facility]. Were called to evaluate but since then the patient was transferred outside to the medical basurto. He denies any chest pain prior to admission or at this time. EKG reportedly unremarkable for acute ischemia. No shortness of breath reported at this time. No wheezing. He is a former smoker. Family of the bedside. No additional complaints reported. On physical exam, the patient has no left-sided flank pain. No urine cultures are positive. Having large amount of coughing when eating or drinking with pneumonia on CT. Has some neck pain and some right-sided pain which is the side of his paresis from prior CVA. Past History Past Medical History: hypertension, hyperlipidemia, renal failure, stroke Medications and Allergies Allergies Allergy/AdvReac Type Severity Reaction Status Date / Time Penicillins Allergy Unknown Verified 04/11/18 16:00 Home Medications Medication Instructions Recorded Confirmed Last Taken Type Clopidogrel Bisulfate [Plavix] 75 mg PO DAILY #0 09/21/17 04/26/18 04/24/18 12:00 History Famotidine [Pepcid] 20 mg PO DAILY #0 09/21/17 04/26/18 04/24/18 History 20mg Simvastatin 40 mg PO HS 09/21/17 04/26/18 04/24/18 08:00 History 20 mg Sucralfate [Carafate] 1 gram PO DAILY #0 09/21/17 04/26/18 04/24/18 12:00 History 1 gm amLODIPine 5 mg PO DAILY 09/21/17 04/26/18 04/24/18 21:00 History 5 mg Losartan [Cozaar] 100 mg PO QDAY 04/26/18 04/26/18 04/24/18 21:00 History Spironolactone [Aldactone] 25 mg PO QDAY 04/26/18 04/26/18 04/24/18 08:00 History Torsemide [Demadex] 2.5 mg PO 3XW 04/26/18 04/26/18 Unknown History Active Meds: Active Medications Acetaminophen (Tylenol) 650 mg PO Q4H PRN PRN Reason: Fever >101 Last Admin: 04/30/18 11:10 Dose: 650 mg Documented by: Acetaminophen/Hydrocodone Bitart ([place] 5/325) 1 each PO Q6HR PRN PRN Reason: Pain Last Admin: 04/26/18 10:58 Dose: 1 each Documented by: Clopidogrel Bisulfate (Plavix) 75 mg PO DAILY [facility] Last Admin: 05/01/18 09:48 Dose: 75 mg Documented by: Cyclobenzaprine HCl (Flexeril) 5 mg PO Q8H PRN PRN Reason: Muscle Spasm Dextrose (D50w (25gm) Syringe) 50 ml IV PRN PRN PRN Reason: Hypoglycemia Famotidine (Pepcid) 20 mg PO DAILY [facility] Last Admin: 05/01/18 09:48 Dose: 20 mg Documented by: Norepinephrine (Levophed Drip 4 Mg/Ns 250 Ml) 4 mg in 250 mls @ 7.5 mls/hr IV TITR [facility]; Protocol Last Titration: 04/26/18 08:15 Dose: 0 mcg/min, 0 mls/hr Documented by: Levofloxacin (Levaquin) 750 mg PO Q24HR [facility] Last Admin: 05/01/18 09:48 Dose: 750 mg Documented by: Magnesium Hydroxide (Milk Of Magnesia) 30 ml PO QDAY PRN PRN Reason: Constipation Last Admin: 04/30/18 18:07 Dose: 30 ml Documented by: Ondansetron HCl (Zofran) 4 mg IV Q8H PRN PRN Reason: Nausea And Vomiting Pravastatin Sodium (Pravachol) 80 mg PO QHS [facility] Last Admin: 04/30/18 21:06 Dose: 80 mg Documented by: Sodium Bicarbonate (Sodium Bicarbonate) 650 mg PO TID [facility] Last Admin: 05/01/18 09:48 Dose: 650 mg Documented by: Sucralfate (Carafate) 1 gm PO DAILY [facility] Last Admin: 05/01/18 09:48 Dose: 1 gm Documented by: Review of Systems All systems: negative (see HPI) Exam - Constitutional Vitals: Temp Pulse Resp BP Pulse Ox 99.2 F 109 H 20 102/59 96 05/01/18 07:43 05/01/18 07:43 05/01/18 07:43 05/01/18 07:43 05/01/18 07:43 General appearance: Present: no acute distress - EENT Eyes: Present: EOM intact ENT: hearing intact - Respiratory Respiratory effort: normal - Abdominal General gastrointestinal: Present: other (no left CVT) - Psychiatric Psychiatric: cooperative Results - Labs CBC & Chem 7: 05/01/18 03:47 05/01/18 03:47 Labs: Abnormal lab results 04/30/18 04/30/18 04/30/18 Range/Units 11:16 16:17 22:33 WBC (4.5-11.0) K/mm3 RBC (3.65-5.03) M/mm3 Hgb (11.8-15.2) gm/dl Hct (35.5-45.6) % MCV (84-94) fl MCH (28-32) pg MCHC (32-34) % RDW (13.2-15.2) % Lymph % (Auto) (13.4-35.0) % Lymph # (1.2-5.4) K/mm3 Seg Neutrophils % (40.0-70.0) % Seg Neutrophils # (1.8-7.7) K/mm3 Chloride (98-107) mmol/L Glucose (75-100) mg/dL POC Glucose 107 H 117 H 114 H (70-105) Calcium (8.4-10.2) mg/dL 05/01/18 05/01/18 05/01/18 Range/Units 03:47 03:47 07:22 WBC 13.1 H (4.5-11.0) K/mm3 RBC 3.61 L (3.65-5.03) M/mm3 Hgb 7.6 L (11.8-15.2) gm/dl Hct 24.8 L (35.5-45.6) % MCV 69 L (84-94) fl MCH 21 L (28-32) pg MCHC 31 L (32-34) % RDW 18.8 H (13.2-15.2) % Lymph % (Auto) 5.8 L (13.4-35.0) % Lymph # 0.8 L (1.2-5.4) K/mm3 Seg Neutrophils % 88.6 H (40.0-70.0) % Seg Neutrophils # 11.6 H (1.8-7.7) K/mm3 Chloride 108.6 H (98-107) mmol/L Glucose 107 H (75-100) mg/dL POC Glucose 113 H (70-105) Calcium 7.8 L (8.4-10.2) mg/dL - Imaging and Cardiology CT scan - abdomen: report reviewed, image reviewed (also reviewed nuclear medicine study) Assessment and Plan 77-year-old male with 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 The patient has no left-sided flank pain, and his urine cultures demonstrate no urinary tract infection. Given the patient's debilitated status and minimal residual function of the left kidney with no obvious symptomatology, I do not recommend any intervention at this time. Though the patient has leukocytosis, he has other causes for leukocytosis. He has pneumonia with coughing after eating or drinking which is being worked up by medicine.
[2018-05-01] MEDS: MILK OF MAGNESIA PO PRN (22:00)
[2018-05-01] MEDS: PRAVACHOL PO SCH (22:00)
--- NOTE | 2018-05-02 08:37 | Progress Note ---
Assessment and Plan IR plan noted agree with Dr Shelton once we start with manipulatuion of this chronic obst L kidney he will likely need nephrectomy or chronic stents sig co morbidities home with catheter discussed with daughter get out pt urodynamic s needs to get strength and ambulate Subjective Date of service: 05/02/18 Principal diagnosis: retention Objective - Constitutional Vitals: Vital Signs - 12hr 05/01/18 05/02/18 05/02/18 22:00 02:31 02:32 Temperature 99.0 F Pulse Rate 113 H 104 H Pulse Rate [ 113 H From Monitor] Respiratory 22 18 Rate Blood Pressure 99/58 Blood Pressure [Left] O2 Sat by Pulse 92 Oximetry 05/02/18 05/02/18 05/02/18 07:29 07:30 07:59 Temperature 99.1 F Pulse Rate 103 H 104 H Pulse Rate [ From Monitor] Respiratory 18 Rate Blood Pressure Blood Pressure 103/59 [Left] O2 Sat by Pulse 97 97 Oximetry General appearance: Present: no acute distress Extremities: no ischemia - Gastrointestinal General gastrointestinal: Present: soft, non-tender - Labs CBC & Chem 7: 05/01/18 03:47 05/01/18 03:47 Labs: Abnormal lab results 05/01/18 05/01/18 05/01/18 Range/Units 11:24 16:06 21:56 POC Glucose 126 H 148 H 142 H (70-105) 05/02/18 Range/Units 07:32 POC Glucose 150 H (70-105) Medications & Allergies - Medications Allergies/Adverse Reactions: Allergies Penicillins Allergy (Verified 04/11/18 16:00) Unknown Home Medications: Home Medications Medication Instructions Recorded Confirmed Last Taken Type Clopidogrel Bisulfate [Plavix] 75 mg PO DAILY #0 09/21/17 04/26/18 04/24/18 1 2:00 History Famotidine [Pepcid] 20 mg PO DAILY #0 09/21/17 04/26/18 04/24/18 History 20mg Simvastatin 40 mg PO HS 09/21/17 04/26/18 04/24/18 08:00 History 20 mg Sucralfate [Carafate] 1 gram PO DAILY #0 09/21/17 04/26/18 04/24/18 12:00 History 1 gm amLODIPine 5 mg PO DAILY 09/21/17 04/26/18 04/24/18 21:00 History 5 mg Losartan [Cozaar] 100 mg PO QDAY 04/26/18 04/26/18 04/24/18 21:00 History Spironolactone [Aldactone] 25 mg PO QDAY 04/26/18 04/26/18 04/24/18 08:00 History Torsemide [Demadex] 2.5 mg PO 3XW 04/26/18 04/26/18 Unknown History Active Medications: Generic Name Dose Route Start Last Admin Trade Name Freq PRN Reason Stop Dose Admin Acetaminophen 650 mg 04/26/18 02:48 04/30/18 11:10 Tylenol PO 650 mg Q4H PRN Administration Fever >101 Acetaminophen/Hydrocodone Bitart 1 each 04/26/18 02:53 04/26/18 10:58 [place] 5/325 PO 1 each Q6HR PRN Administration Pain Clopidogrel Bisulfate 75 mg 04/26/18 10:00 05/01/18 09:48 Plavix PO 75 mg DAILY FREDI Administration Cyclobenzaprine HCl 5 mg 04/30/18 09:00 Flexeril PO Q8H PRN Muscle Spasm Dextrose 50 ml 04/26/18 03:10 D50w (25gm) Syringe IV PRN PRN Hypoglycemia Famotidine 20 mg 04/26/18 10:00 05/01/18 09:48 Pepcid PO 20 mg DAILY FREDI Administration Norepinephrine 4 mg in 250 mls @ 7.5 mls/hr 04/26/18 03:00 04/26/18 08:15 Levophed Drip 4 Mg/Ns 250 Ml IV 0 mcg/min TITR FREDI 0 mls/hr Titration Protocol 2 MCG/MIN Levofloxacin 750 mg 04/30/18 10:00 05/01/18 09:48 Levaquin PO 750 mg Q24HR FREDI Administration Magnesium Hydroxide 30 ml 04/28/18 11:58 05/01/18 22:00 Milk Of Magnesia PO 30 ml QDAY PRN Administration Constipation Ondansetron HCl 4 mg 04/26/18 02:49 Zofran IV Q8H PRN Nausea And Vomiting Pravastatin Sodium 80 mg 04/26/18 22:00 05/01/18 22:00 Pravachol PO 80 mg QHS FREDI Administration Sodium Bicarbonate 650 mg 04/28/18 20:00 05/01/18 21:59 Sodium Bicarbonate PO 650 mg TID FREDI Administration Sucralfate 1 gm 04/26/18 10:00 05/01/18 09:48 Carafate PO 1 gm DAILY FREDI Administration
[2018-05-02] MEDS: SODIUM BICARBONATE PO SCH ×3 (09:00→21:21)
[2018-05-02] MEDS: PLAVIX PO SCH (09:13)
[2018-05-02] MEDS: CARAFATE PO SCH (09:13)
[2018-05-02] MEDS: LEVAQUIN PO SCH (09:13)
[2018-05-02] MEDS: PEPCID PO SCH (09:13)
--- NOTE | 2018-05-02 10:59 | Progress Note ---
Assessment and Plan 1. Acute kidney injury: Patient admitted with elevated creatinine from his baseline. Likely Vasomotor / hemodynamic DEVIN in the setting of hypotension. Renal function is better. Left atrophic kidney. 2. FEN: Hypovolemia, improved. Metabolic acidosis, on sodium bicarbonate. 3. Hypovolemic shock: Resolved. 4. Acute metabolic encephalopathy. 5. Anemia. 6. H/o CVA with right hemiparesis. Subjective Date of service: 05/02/18 Principal diagnosis: retention Interval history: Patient was seen and examined at the bedside. Objective - Vital Signs Vital signs: Vital Signs - 12hr 05/02/18 05/02/18 05/02/18 02:31 02:32 07:29 Temperature 99.0 F Pulse Rate 104 H 103 H Pulse Rate [ From Monitor] Respiratory 18 18 Rate Blood Pressure 99/58 Blood Pressure [Left] O2 Sat by Pulse 92 97 Oximetry 05/02/18 05/02/18 05/02/18 07:30 07:59 08:25 Temperature 99.1 F Pulse Rate 104 H Pulse Rate [ 104 H From Monitor] Respiratory 20 Rate Blood Pressure Blood Pressure 103/59 [Left] O2 Sat by Pulse 97 95 Oximetry - General Appearance General appearance: well-developed, well-nourished, appears stated age, other (not in distress) EENT: ATNC, PERRL, hearing diminished Neck: supple Respiratory: Present: Clear to Ascultation Cardiology: regular, S1S2, no murmurs Gastrointestinal: normoactive bowel sounds, no tenderness, no distended, other (Martinez catheter) Integumentary: no rash, warm and dry Neurologic: confused, disoriented, hemiplegic (right side), other (somnolent) Musculoskeletal: other (no edema) - Lab 05/01/18 03:47 05/01/18 03:47 Most recent lab results Calcium 7.8 mg/dL (8.4-10.2) L 05/01/18 03:47 Phosphorus 2.60 mg/dL (2.5-4.5) 04/28/18 04:48 Magnesium 1.70 mg/dL (1.7-2.3) 04/30/18 05:12 Urine Creatinine 62.1 mg/dL (0.1-20.0) H 04/26/18 18:29 Urine Sodium 101 mmol/L 04/26/18 18:29 Medications & Allergies - Medications Allergies/Adverse Reactions: Allergies Penicillins Allergy (Verified 04/11/18 16:00) Unknown Home Medications: Home Medications Medication Instructions Recorded Confirmed Last Taken Type Clopidogrel Bisulfate [Plavix] 75 mg PO DAILY #0 09/21/17 04/26/18 04/24/18 12:00 History Famotidine [Pepcid] 20 mg PO DAILY #0 09/21/17 04/26/18 04/24/18 History 20mg Simvastatin 40 mg PO HS 09/21/17 04/26/18 04/24/18 08:00 History 20 mg Sucralfate [Carafate] 1 gram PO DAILY #0 09/21/17 04/26/18 04/24/18 12:00 History 1 gm amLODIPine 5 mg PO DAILY 09/21/17 04/26/18 04/24/18 21:00 History 5 mg Losartan [Cozaar] 100 mg PO QDAY 04/26/18 04/26/18 04/24/18 21:00 History Spironolactone [Aldactone] 25 mg PO QDAY 04/26/18 04/26/18 04/24/18 08:00 History Torsemide [Demadex] 2.5 mg PO 3XW 04/26/18 04/26/18 Unknown History Active Medications: Generic Name Dose Route Start Last Admin Trade Name Freq PRN Reason Stop Dose Admin Acetaminophen 650 mg 04/26/18 02:48 04/30/18 11:10 Tylenol PO 650 mg Q4H PRN Administration Fever >101 Acetaminophen/Hydrocodone Bitart 1 each 04/26/18 02:53 04/26/18 10:58 [place] 5/325 PO 1 each Q6HR PRN Administration Pain Clopidogrel Bisulfate 75 mg 04/26/18 10:00 05/02/18 09:13 Plavix PO 75 mg DAILY FREDI Administration Cyclobenzaprine HCl 5 mg 04/30/18 09:00 Flexeril PO Q8H PRN Muscle Spasm Dextrose 50 ml 04/26/18 03:10 D50w (25gm) Syringe IV PRN PRN Hypoglycemia Famotidine 20 mg 04/26/18 10:00 05/02/18 09:13 Pepcid PO 20 mg DAILY FREDI Administration Levofloxacin 750 mg 04/30/18 10:00 05/02/18 09:13 Levaquin PO 750 mg Q24HR FREDI Administration Magnesium Hydroxide 30 ml 04/28/18 11:58 05/01/18 22:00 Milk Of Magnesia PO 30 ml QDAY PRN Administration Constipation Ondansetron HCl 4 mg 04/26/18 02:49 Zofran IV Q8H PRN Nausea And Vomiting Pravastatin Sodium 80 mg 04/26/18 22:00 05/01/18 22:00 Pravachol PO 80 mg QHS FREDI Administration Sodium Bicarbonate 650 mg 04/28/18 20:00 05/02/18 09:00 Sodium Bicarbonate PO 650 mg TID FREDI Administration Sucralfate 1 gm 04/26/18 10:00 05/02/18 09:13 Carafate PO 1 gm DAILY FREDI Administration
[2018-05-02] MEDS: TYLENOL PO PRN (13:35)
--- NOTE | 2018-05-02 16:56 | Progress Note ---
Assessment and Plan Assessment and plan: 77 yo man with a history of hypertension, CVA with right sided weakness, IDDM, dyslipidemia, GERD, Asthma, OA and recent DEVIN was admitted through ER with AMS,, and hypotension, not responding to IVF resuscitation; admitted to ICU on levophed. Review of old records shows that patient was just discharged on 04/11/2018 after treatment of gout, right leg swelling, CHF, ARF. --Left kidney atrophy 19% functional /Chronic Lt.hydronephrosis; urology following, continue Martinez catheterization,IR evaluation per INR intervention needed, evaluated by Dr. Pulido --Bladder outlet obstruction/urinary retention; Continuous Martinez catheterization, discharge home on Martinez per urology --Neck pain; probably muscle spasm: Supportive care, muscle relaxer cervical spine x ray Cervical spondylosis, neck, neck collar as needed --Metabolic encephalopathy/altered level of consciousness; Back to baseline, supportive care --Hypovolemic shock; POA, off Pressor blood pressures are reasonable level, --Possible pneumonia/left lower on CT abdomen; empiric antibiotics, Cultures negative to date --Acute kidney injury; vasomotor nephropathy; resolved --Hyponatremia/hypokalemia; resolved, closely monitor electrolytes --Severe malnutrition; hypo albuminemia; albumin 2.1 Nutrition supplements, Ensure Plus 3 times a day --History of CVA with right-sided weakness; supportive care Physical therapy, continue Plavix and statin --DVT prophylaxis; family refused Lovenox, continue SCDs --Full CODE STATUS --Physical therapy/OT family refused subacute rehabilitation, requested home health Possible discharge home in 1-2 days with home health if stable Plan of care reviewed with all the family members both in the room and over the phone Nurse was present during the discussions History Interval history: Patient seen and examined medical records reviewed No new events reported by the nursing staff Patient is alert and awake cheerful not in acute distress Family members at the bedside Vital signs noted Hospitalist Physical - Constitutional Vitals: Temp Pulse Resp BP Pulse Ox 99.1 F 104 H 20 103/59 95 05/02/18 07:59 05/02/18 10:00 05/02/18 13:35 05/02/18 07:59 05/02/18 08:25 General appearance: Present: no acute distress, well-nourished, obese - EENT Eyes: Present: PERRL, EOM intact - Neck Neck: Present: supple, normal ROM - Respiratory Respiratory effort: normal Respiratory: bilateral: diminished, negative: rales, rhonchi, wheezing - Cardiovascular Rhythm: regular Heart Sounds: Present: S1 & S2 - Extremities Extremities: no ischemia, No edema - Abdominal General gastrointestinal: soft, non-tender, non-distended, normal bowel sounds - Integumentary Integumentary: Present: clear, warm - Psychiatric Psychiatric: appropriate mood/affect, cooperative - Neurologic Neurologic: moves all extremities, other (CVA with residual right-sided weakness) Results - Labs CBC & Chem 7: 05/01/18 03:47 05/01/18 03:47 Labs: Laboratory Last Values WBC 13.1 K/mm3 (4.5-11.0) H 05/01/18 03:47 RBC 3.61 M/mm3 (3.65-5.03) L 05/01/18 03:47 Hgb 7.6 gm/dl (11.8-15.2) L 05/01/18 03:47 Hct 24.8 % (35.5-45.6) L 05/01/18 03:47 MCV 69 fl (84-94) L 05/01/18 03:47 MCH 21 pg (28-32) L 05/01/18 03:47 MCHC 31 % (32-34) L 05/01/18 03:47 RDW 18.8 % (13.2-15.2) H 05/01/18 03:47 Plt Count 235 K/mm3 (140-440) 05/01/18 03:47 Lymph % (Auto) 5.8 % (13.4-35.0) L 05/01/18 03:47 [place] % (Auto) 4.8 % (0.0-7.3) 05/01/18 03:47 Eos % (Auto) 0.6 % (0.0-4.3) 05/01/18 03:47 Baso % (Auto) 0.2 % (0.0-1.8) 05/01/18 03:47 Lymph # 0.8 K/mm3 (1.2-5.4) L 05/01/18 03:47 [place] # 0.6 K/mm3 (0.0-0.8) 05/01/18 03:47 Eos # 0.1 K/mm3 (0.0-0.4) 05/01/18 03:47 Baso # 0.0 K/mm3 (0.0-0.1) 05/01/18 03:47 Add Manual Diff Complete 04/25/18 22:26 Total Counted 100 04/25/18 22:26 Seg Neutrophils % 88.6 % (40.0-70.0) H 05/01/18 03:47 Seg Neuts % (Manual) 91.0 % (40.0-70.0) H 04/25/18 22:26 Band Neutrophils % 3.0 % 04/25/18 22:26 Lymphocytes % (Manual) 4.0 % (13.4-35.0) L 04/25/18 22:26 Reactive Lymphs % (Man) 0 % 04/25/18 22:26 Monocytes % (Manual) 2.0 % (0.0-7.3) 04/25/18 22:26 Eosinophils % (Manual) 0 % (0.0-4.3) 04/25/18 22:26 Basophils % (Manual) 0 % (0.0-1.8) 04/25/18 22:26 Metamyelocytes % 0 % 04/25/18 22:26 Myelocytes % 0 % 04/25/18 22:26 Promyelocytes % 0 % 04/25/18 22:26 Blast Cells % 0 % 04/25/18 22:26 Nucleated RBC % Not Reportable 04/25/18 22:26 Seg Neutrophils # 11.6 K/mm3 (1.8-7.7) H 05/01/18 03:47 Seg Neutrophils # Man 10.0 K/mm3 (1.8-7.7) H 04/25/18 22:26 Band Neutrophils # 0.3 K/mm3 04/25/18 22:26 Lymphocytes # (Manual) 0.4 K/mm3 (1.2-5.4) L 04/25/18 22:26 Abs React Lymphs (Man) 0.0 K/mm3 04/25/18 22:26 Monocytes # (Manual) 0.2 K/mm3 (0.0-0.8) 04/25/18 22:26 Eosinophils # (Manual) 0.0 K/mm3 (0.0-0.4) 04/25/18 22:26 Basophils # (Manual) 0.0 K/mm3 (0.0-0.1) 04/25/18 22:26 Metamyelocytes # 0.0 K/mm3 04/25/18 22:26 Myelocytes # 0.0 K/mm3 04/25/18 22:26 Promyelocytes # 0.0 K/mm3 04/25/18 22:26 Blast Cells # 0.0 K/mm3 04/25/18 22:26 WBC Morphology Not Reportable 04/25/18 22:26 Hypersegmented Neuts Not Reportable 04/25/18 22:26 Hyposegmented Neuts Not Reportable 04/25/18 22:26 Hypogranular Neuts Not Reportable 04/25/18 22:26 Smudge Cells Not Reportable 04/25/18 22:26 Toxic Granulation Not Reportable 04/25/18 22:26 Toxic Vacuolation Not Reportable 04/25/18 22:26 Dohle Bodies Not Reportable 04/25/18 22:26 [place]-Huet Anomaly Not Reportable 04/25/18 22:26 Alba Rods Not Reportable 04/25/18 22:26 Platelet Estimate Consistent w auto 04/25/18 22:26 Clumped Platelets Not Reportable 04/25/18 22:26 Plt Clumps, EDTA Not Reportable 04/25/18 22:26 Large Platelets Not Reportable 04/25/18 22:26 Giant Platelets Not Reportable 04/25/18 22:26 Platelet Satelliting Not Reportable 04/25/18 22:26 Plt Morphology Comment Not Reportable 04/25/18 22:26 RBC Morphology Not Reportable 04/25/18 22:26 Dimorphic RBCs Not Reportable 04/25/18 22:26 Polychromasia Not Reportable 04/25/18 22:26 Hypochromasia Not Reportable 04/25/18 22:26 Poikilocytosis Not Reportable 04/25/18 22:26 Anisocytosis 1+ 04/25/18 22:26 Microcytosis Not Reportable 04/25/18 22:26 Macrocytosis Not Reportable 04/25/18 22:26 Spherocytes Not Reportable 04/25/18 22:26 Pappenheimer Bodies Not Reportable 04/25/18 22:26 Sickle Cells Not Reportable 04/25/18 22:26 Target Cells Not Reportable 04/25/18 22:26 Tear Drop Cells Not Reportable 04/25/18 22:26 Ovalocytes Not Reportable 04/25/18 22:26 Helmet Cells Not Reportable 04/25/18 22:26 [place] Bodies Not Reportable 04/25/18 22:26 [place] Rings Not Reportable 04/25/18 22:26 [place] Cells Not Reportable 04/25/18 22:26 Bite Cells Not Reportable 04/25/18 22:26 Crenated Cell Not Reportable 04/25/18 22:26 Elliptocytes 1+ 04/25/18 22:26 Acanthocytes (Spur) Not Reportable 04/25/18 22:26 Rouleaux Not Reportable 04/25/18 22:26 Hemoglobin C Crystals Not Reportable 04/25/18 22:26 Schistocytes Not Reportable 04/25/18 22:26 Malaria parasites Not Reportable 04/25/18 22:26 James Bodies Not Reportable 04/25/18 22:26 Hem Pathologist Commnt No 04/25/18 22:26 Sodium 142 mmol/L (137-145) 05/01/18 03:47 Potassium 4.3 mmol/L (3.6-5.0) 05/01/18 03:47 Chloride 108.6 mmol/L (98-107) H 05/01/18 03:47 Carbon Dioxide 22 mmol/L (22-30) 05/01/18 03:47 Anion Gap 16 mmol/L 05/01/18 03:47 BUN 19 mg/dL (9-20) 05/01/18 03:47 Creatinine 1.2 mg/dL (0.8-1.5) 05/01/18 03:47 Estimated GFR > 60 ml/min 05/01/18 03:47 BUN/Creatinine Ratio 16 % 05/01/18 03:47 Glucose 107 mg/dL (75-100) H 05/01/18 03:47 POC Glucose 133 (70-105) H 05/02/18 16:04 Lactic Acid 1.00 mmol/L (0.7-2.0) 04/26/18 03:04 Uric Acid 8.6 mg/dL (3.5-7.6) H 04/26/18 00:26 Calcium 7.8 mg/dL (8.4-10.2) L 05/01/18 03:47 Phosphorus 2.60 mg/dL (2.5-4.5) 04/28/18 04:48 Magnesium 1.70 mg/dL (1.7-2.3) 04/30/18 05:12 Total Bilirubin 0.40 mg/dL (0.1-1.2) 04/30/18 05:12 AST 20 units/L (5-40) 04/30/18 05:12 ALT 12 units/L (7-56) 04/30/18 05:12 Alkaline Phosphatase 119 units/L (35-129) 04/30/18 05:12 Ammonia 20.0 umol/L (25-60) L 04/25/18 22:26 Total Creatine Kinase 24 units/L (55-170) L 04/26/18 13:54 CK-MB (CK-2) 1.8 ng/mL (0.0-4.0) 04/26/18 13:54 CK-MB (CK-2) Rel Index 7.5 (0-4) H 04/26/18 13:54 Troponin T 0.020 ng/mL (0.00-0.029) 04/26/18 13:54 Total Protein 5.0 g/dL (6.3-8.2) L D 04/30/18 05:12 Albumin 1.2 g/dL (3.9-5) L 04/30/18 05:12 Albumin/Globulin Ratio 0.3 % 04/30/18 05:12 Triglycerides 89 mg/dL (2-149) 04/25/18 22:26 Cholesterol 91 mg/dL (50-199) 04/25/18 22:26 LDL Cholesterol Direct 59 mg/dL (50-130) 04/25/18 22:26 HDL Cholesterol 23 mg/dL (40-59) L 04/25/18 22:26 Cholesterol/HDL Ratio 3.95 % 04/25/18 22:26 TSH 1.510 mlU/mL (0.270-4.200) 04/25/18 22:26 Urine Color Yellow (Yellow) 04/26/18 18:29 Urine Turbidity Clear (Clear) 04/26/18 18:29 Urine pH 5.0 (5.0-7.0) 04/26/18 18:29 Ur Specific [place] 1.008 (1.003-1.030) 04/26/18 18:29 Urine Protein <15 mg/dl mg/dL (Negative) 04/26/18 18:29 Urine Glucose (UA) Neg mg/dL (Negative) 04/26/18 18:29 Urine Ketones Tr mg/dL (Negative) 04/26/18 18:29 Urine Blood Mod (Negative) 04/26/18 18:29 Urine Nitrite Neg (Negative) 04/26/18 18:29 Urine Bilirubin Neg (Negative) 04/26/18 18:29 Urine Urobilinogen < 2.0 mg/dL (<2.0) 04/26/18 18:29 Ur Leukocyte Esterase Mod (Negative) 04/26/18 18:29 Urine WBC (Auto) 17.0 /HPF (0.0-6.0) H 04/26/18 18:29 Urine RBC (Auto) 64.0 /HPF (0.0-6.0) 04/26/18 18:29 U Epithel Cells (Auto) < 1.0 /HPF (0-13.0) 04/26/18 18:29 Urine Mucus Few /HPF 04/26/18 18:29 Urine Eosinophils 3% (None Seen) 04/26/18 18:29 Urine Creatinine 62.1 mg/dL (0.1-20.0) H 04/26/18 18:29 Urine Sodium 101 mmol/L 04/26/18 18:29 Fraction Sodium Excret 2.3 04/26/18 18:29 Plasma/Serum Alcohol < 0.01 % (0-0.07) 04/25/18 22:26 Nutrition/Malnutrition Assess - Dietary Evaluation Nutrition/Malnutrition Findings: Nutrition Notes Start: 04/27/18 14:56 Freq: Status: Active Protocol: Document 04/28/18 14:44 RM (Rec: 04/28/18 14:52 RM [id number]) Nutrition Notes Initial or Follow up Assessment Current Diagnosis Acute Kidney Injury CKD(stage I-IV) Diabetes Hypertension Other Pertinent Diagnosis GERD, Hypercholesterolemia, Acute metabolic encephalopathy ,AMS Subjective/Other Information Pt, pt , pt daughter, and pt granddaughter in room at time of visit. Pt family was not aware that pt has DM. Office Engineer advised family to ask nurse to ask MD to come speak with them regarding any questions bond writer was unable to answer. Reviewed Carbohydrate Counting. Gave handout. #1 Nutrition Diagnosis Food and nutrition-related knowledge deficit Etiology lack of prior education As Evidenced by Signs and Symptoms no prior knowledge of need for food and nutrition recommendations Nutrition Intervention Teaching Recipient Patient Family Spouse Learning Readiness Good Teaching Methods Discussion Handout Response to Teaching Verbalize understanding Education Handouts Provided Carbohydrate Counting for People with Diabetes Barriers to Learning No Barriers RD phone number provided Yes Patient aware of follow up options Yes Goal #1 Utilize carbohydrate counting Revisit per MD consult or patient Sign Off request:
[2018-05-02] MEDS: MILK OF MAGNESIA PO PRN (19:46)
[2018-05-02] MEDS: PRAVACHOL PO SCH (21:21)
[2018-05-03 06:27] LABS: Basophils % (Auto) 0.2 % (0.0-1.8); Eosinophils % (Auto) 0.3 % (0.0-4.3); Hematocrit 26.3 % (35.5-45.6); Hemoglobin 7.8 gm/dl (11.8-15.2); Lymphocytes # (Auto) 0.8 K/mm3 (1.2-5.4); Lymphocytes % (Auto) 6.6 % (13.4-35.0); Mean Corpuscular HGB Conc 30 % (32-34); Monocytes # (Auto) 0.6 K/mm3 (0.0-0.8); Monocytes % (Auto) 4.9 % (0.0-7.3); Platelet Count 232 K/mm3 (140-440); Red Blood Count 3.82 M/mm3 (3.65-5.03); Red Cell Distribution Width 18.6 % (13.2-15.2)
[2018-05-03 06:32] LABS: BUN/Creatinine Ratio 18; Blood Urea Nitrogen 22 mg/dL (9-20); Hemolysis Index 3; Mean Corpuscular Volume 69 fl (84-94)
[2018-05-03] MEDS: SODIUM BICARBONATE PO SCH ×3 (08:29→21:18)
[2018-05-03] MEDS: LEVAQUIN PO SCH (09:41)
[2018-05-03] MEDS: PEPCID PO SCH (09:41)
[2018-05-03] MEDS: PLAVIX PO SCH (09:41)
[2018-05-03] MEDS: CARAFATE PO SCH (09:42)
--- NOTE | 2018-05-03 14:11 | Progress Note ---
Assessment and Plan 1. Acute kidney injury: Patient admitted with elevated creatinine from his baseline. Likely Vasomotor / hemodynamic DEVIN in the setting of hypotension. Renal function is better. Left atrophic kidney. 2. FEN: Hypovolemia, improved. Metabolic acidosis, on sodium bicarbonate. 3. Hypovolemic shock: Resolved. 4. Acute metabolic encephalopathy. 5. Anemia. 6. H/o CVA with right hemiparesis. Subjective Date of service: 05/03/18 Principal diagnosis: retention Interval history: Patient was seen and examined at the bedside. Objective - Vital Signs Vital signs: Vital Signs - 12hr 05/03/18 08:23 Temperature 97.3 F L Pulse Rate 103 H Respiratory 18 Rate Blood Pressure 115/65 O2 Sat by Pulse 98 Oximetry - General Appearance General appearance: well-developed, well-nourished, appears stated age, other (not in distress) EENT: ATNC, PERRL, hearing diminished Neck: supple Respiratory: Present: Clear to Ascultation Cardiology: regular, S1S2, no murmurs Gastrointestinal: normoactive bowel sounds, no tenderness, no distended Integumentary: no rash, warm and dry Neurologic: confused, hemiplegic (right) Musculoskeletal: other (no edema) - Lab 05/03/18 05:29 05/03/18 05:29 Most recent lab results Calcium 8.0 mg/dL (8.4-10.2) L 05/03/18 05:29 Phosphorus 2.60 mg/dL (2.5-4.5) 04/28/18 04:48 Magnesium 1.70 mg/dL (1.7-2.3) 04/30/18 05:12 Urine Creatinine 62.1 mg/dL (0.1-20.0) H 04/26/18 18:29 Urine Sodium 101 mmol/L 04/26/18 18:29 Medications & Allergies - Medications Allergies/Adverse Reactions: Allergies Penicillins Allergy (Verified 04/11/18 16:00) Unknown Home Medications: Home Medications Medication Instructions Recorded Confirmed Last Taken Type Clopidogrel Bisulfate [Plavix] 75 mg PO DAILY #0 09/21/17 04/26/18 04/24/18 12:00 History Famotidine [Pepcid] 20 mg PO DAILY #0 09/21/17 04/26/18 04/24/18 History 20mg Simvastatin 40 mg PO HS 09/21/17 04/26/18 04/24/18 08:00 History 20 mg Sucralfate [Carafate] 1 gram PO DAILY #0 09/21/17 04/26/18 04/24/18 12:00 History 1 gm amLODIPine 5 mg PO DAILY 09/21/17 04/26/18 04/24/18 21:00 History 5 mg Losartan [Cozaar] 100 mg PO QDAY 04/26/18 04/26/18 04/24/18 21:00 History Spironolactone [Aldactone] 25 mg PO QDAY 04/26/18 04/26/18 04/24/18 08:00 History Torsemide [Demadex] 2.5 mg PO 3XW 04/26/18 04/26/18 Unknown History Active Medications: Generic Name Dose Route Start Last Admin Trade Name Freq PRN Reason Stop Dose Admin Acetaminophen 650 mg 04/26/18 02:48 05/02/18 13:35 Tylenol PO 650 mg Q4H PRN Administration Fever >101 Acetaminophen/Hydrocodone Bitart 1 each 04/26/18 02:53 04/26/18 10:58 [place] 5/325 PO 1 each Q6HR PRN Administration Pain Clopidogrel Bisulfate 75 mg 04/26/18 10:00 05/03/18 09:41 Plavix PO 75 mg DAILY FREDI Administration Cyclobenzaprine HCl 5 mg 04/30/18 09:00 Flexeril PO Q8H PRN Muscle Spasm Dextrose 50 ml 04/26/18 03:10 D50w (25gm) Syringe IV PRN PRN Hypoglycemia Famotidine 20 mg 04/26/18 10:00 05/03/18 09:41 Pepcid PO 20 mg DAILY FREDI Administration Levofloxacin 750 mg 04/30/18 10:00 05/03/18 09:41 Levaquin PO 750 mg Q24HR FREDI Administration Magnesium Hydroxide 30 ml 04/28/18 11:58 05/02/18 19:46 Milk Of Magnesia PO 30 ml QDAY PRN Administration Constipation Ondansetron HCl 4 mg 04/26/18 02:49 Zofran IV Q8H PRN Nausea And Vomiting Pravastatin Sodium 80 mg 04/26/18 22:00 05/02/18 21:21 Pravachol PO 80 mg QHS FREDI Administration Sodium Bicarbonate 650 mg 04/28/18 20:00 05/03/18 13:42 Sodium Bicarbonate PO 650 mg TID FREDI Administration Sucralfate 1 gm 04/26/18 10:00 05/03/18 09:42 Carafate PO 1 gm DAILY FREDI Administration
--- NOTE | 2018-05-03 16:58 | Progress Note ---
Assessment and Plan Assessment and plan: 77 yo man with a history of hypertension, CVA with right sided weakness, IDDM, dyslipidemia, GERD, OA and recent DEVIN was admitted through ER with AMS,, and hypotension, not responding to IVF resuscitation; admitted to ICU on levophed. As per old records patient was on 04/11/2018 after treatment of gout, right leg swelling, ARF --Left kidney atrophy 19% functional /Chronic Lt.hydronephrosis; urology following, continue Martinez catheterization,IR evaluation per Dr.Z LINDSAY, no intervention needed, evaluated by Dr. Pulido --Bladder outlet obstruction/urinary retention; Continuous Martinez catheterization, discharge home on Martinez per urology --Neck pain; pain meds, muscle relaxer C spine x ray Cervical spondylosis, neck collar as needed --Metabolic encephalopathy/altered level of consciousness;POA Back to baseline, supportive care --Hypovolemic shock; POA, off Pressor now blood pressures are reasonable level, --Possible pneumonia/left lower on CT abdomen; empiric antibiotics, Cultures negative to date --Leukocytosis; secondary to pneumonia/bronchitis --Acute kidney injury; vasomotor nephropathy; resolved --Hyponatremia/hypokalemia; resolved, closely monitor electrolytes --Severe malnutrition; hypo albuminemia; albumin 2.1 Nutrition supplements, Ensure Plus 3 times a day --History of CVA with right-sided weakness; supportive care Physical therapy, continue Plavix and statin --DVT prophylaxis; family refused Lovenox, continue SCDs --Full CODE STATUS --Physical therapy/OT family refused subacute rehabilitation, requested home health Possible discharge home in 1-2 days with home health if stable Plan of care reviewed with the son at the bedside Plan of care is reviewed with the patient's nurse History Interval history: Patient seen and examined medical records reviewed No new events reported by the nursing staff Patient is awake responding to simple questions not in acute distress Vital signs reviewed Hospitalist Physical - Constitutional Vitals: Temp Pulse Resp BP Pulse Ox 98.8 F 118 H 18 107/61 95 05/03/18 14:16 05/03/18 14:16 05/03/18 14:16 05/03/18 14:16 05/03/18 14:16 General appearance: Present: no acute distress, well-nourished, obese - EENT Eyes: Present: PERRL, EOM intact - Neck Neck: Present: normal ROM, rigidity - Respiratory Respiratory effort: normal Respiratory: bilateral: diminished, negative: rales, rhonchi, wheezing - Cardiovascular Rhythm: regular Heart Sounds: Present: S1 & S2 - Extremities Extremities: no ischemia, No edema - Abdominal General gastrointestinal: soft, non-tender, non-distended, normal bowel sounds - Integumentary Integumentary: Present: clear, warm - Psychiatric Psychiatric: appropriate mood/affect, cooperative - Neurologic Neurologic: other (right-sided residual weakness) Results - Labs CBC & Chem 7: 05/03/18 05:29 05/03/18 05:29 Labs: Laboratory Last Values WBC 12.8 K/mm3 (4.5-11.0) H 05/03/18 05:29 RBC 3.82 M/mm3 (3.65-5.03) 05/03/18 05:29 Hgb 7.8 gm/dl (11.8-15.2) L 05/03/18 05:29 Hct 26.3 % (35.5-45.6) L 05/03/18 05:29 MCV 69 fl (84-94) L 05/03/18 05:29 MCH 21 pg (28-32) L 05/03/18 05:29 MCHC 30 % (32-34) L 05/03/18 05:29 RDW 18.6 % (13.2-15.2) H 05/03/18 05:29 Plt Count 232 K/mm3 (140-440) 05/03/18 05:29 Lymph % (Auto) 6.6 % (13.4-35.0) L 05/03/18 05:29 Jerome % (Auto) 4.9 % (0.0-7.3) 05/03/18 05:29 Eos % (Auto) 0.3 % (0.0-4.3) 05/03/18 05:29 Baso % (Auto) 0.2 % (0.0-1.8) 05/03/18 05:29 Lymph # 0.8 K/mm3 (1.2-5.4) L 05/03/18 05:29 Jerome # 0.6 K/mm3 (0.0-0.8) 05/03/18 05:29 Eos # 0.0 K/mm3 (0.0-0.4) 05/03/18 05:29 Baso # 0.0 K/mm3 (0.0-0.1) 05/03/18 05:29 Add Manual Diff Complete 04/25/18 22:26 Total Counted 100 04/25/18 22:26 Seg Neutrophils % 88.0 % (40.0-70.0) H 05/03/18 05:29 Seg Neuts % (Manual) 91.0 % (40.0-70.0) H 04/25/18 22:26 Band Neutrophils % 3.0 % 04/25/18 22:26 Lymphocytes % (Manual) 4.0 % (13.4-35.0) L 04/25/18 22:26 Reactive Lymphs % (Man) 0 % 04/25/18 22:26 Monocytes % (Manual) 2.0 % (0.0-7.3) 04/25/18 22:26 Eosinophils % (Manual) 0 % (0.0-4.3) 04/25/18 22:26 Basophils % (Manual) 0 % (0.0-1.8) 04/25/18 22:26 Metamyelocytes % 0 % 04/25/18 22:26 Myelocytes % 0 % 04/25/18 22:26 Promyelocytes % 0 % 04/25/18 22:26 Blast Cells % 0 % 04/25/18 22:26 Nucleated RBC % Not Reportable 04/25/18 22:26 Seg Neutrophils # 11.3 K/mm3 (1.8-7.7) H 05/03/18 05:29 Seg Neutrophils # Man 10.0 K/mm3 (1.8-7.7) H 04/25/18 22:26 Band Neutrophils # 0.3 K/mm3 04/25/18 22:26 Lymphocytes # (Manual) 0.4 K/mm3 (1.2-5.4) L 04/25/18 22:26 Abs React Lymphs (Man) 0.0 K/mm3 04/25/18 22:26 Monocytes # (Manual) 0.2 K/mm3 (0.0-0.8) 04/25/18 22:26 Eosinophils # (Manual) 0.0 K/mm3 (0.0-0.4) 04/25/18 22:26 Basophils # (Manual) 0.0 K/mm3 (0.0-0.1) 04/25/18 22:26 Metamyelocytes # 0.0 K/mm3 04/25/18 22:26 Myelocytes # 0.0 K/mm3 04/25/18 22:26 Promyelocytes # 0.0 K/mm3 04/25/18 22:26 Blast Cells # 0.0 K/mm3 04/25/18 22:26 WBC Morphology Not Reportable 04/25/18 22:26 Hypersegmented Neuts Not Reportable 04/25/18 22:26 Hyposegmented Neuts Not Reportable 04/25/18 22:26 Hypogranular Neuts Not Reportable 04/25/18 22:26 Smudge Cells Not Reportable 04/25/18 22:26 Toxic Granulation Not Reportable 04/25/18 22:26 Toxic Vacuolation Not Reportable 04/25/18 22:26 Dohle Bodies Not Reportable 04/25/18 22:26 Pelger-Huet Anomaly Not Reportable 04/25/18 22:26 Alba Rods Not Reportable 04/25/18 22:26 Platelet Estimate Consistent w auto 04/25/18 22:26 Clumped Platelets Not Reportable 04/25/18 22:26 Plt Clumps, EDTA Not Reportable 04/25/18 22:26 Large Platelets Not Reportable 04/25/18 22:26 Giant Platelets Not Reportable 04/25/18 22:26 Platelet Satelliting Not Reportable 04/25/18 22:26 Plt Morphology Comment Not Reportable 04/25/18 22:26 RBC Morphology Not Reportable 04/25/18 22:26 Dimorphic RBCs Not Reportable 04/25/18 22:26 Polychromasia Not Reportable 04/25/18 22:26 Hypochromasia Not Reportable 04/25/18 22:26 Poikilocytosis Not Reportable 04/25/18 22:26 Anisocytosis 1+ 04/25/18 22:26 Microcytosis Not Reportable 04/25/18 22:26 Macrocytosis Not Reportable 04/25/18 22:26 Spherocytes Not Reportable 04/25/18 22:26 Pappenheimer Bodies Not Reportable 04/25/18 22:26 Sickle Cells Not Reportable 04/25/18 22:26 Target Cells Not Reportable 04/25/18 22:26 Tear Drop Cells Not Reportable 04/25/18 22:26 Ovalocytes Not Reportable 04/25/18 22:26 Helmet Cells Not Reportable 04/25/18 22:26 Mccoy-[place] Bodies Not Reportable 04/25/18 22:26 [place] Rings Not Reportable 04/25/18 22:26 [place] Cells Not Reportable 04/25/18 22:26 Bite Cells Not Reportable 04/25/18 22:26 Crenated Cell Not Reportable 04/25/18 22:26 Elliptocytes 1+ 04/25/18 22:26 Acanthocytes (Spur) Not Reportable 04/25/18 22:26 Rouleaux Not Reportable 04/25/18 22:26 Hemoglobin C Crystals Not Reportable 04/25/18 22:26 Schistocytes Not Reportable 04/25/18 22:26 Malaria parasites Not Reportable 04/25/18 22:26 James Bodies Not Reportable 04/25/18 22:26 Hem Pathologist Commnt No 04/25/18 22:26 Sodium 144 mmol/L (137-145) 05/03/18 05:29 Potassium 4.3 mmol/L (3.6-5.0) 05/03/18 05:29 Chloride 109.0 mmol/L (98-107) H 05/03/18 05:29 Carbon Dioxide 26 mmol/L (22-30) 05/03/18 05:29 Anion Gap 13 mmol/L 05/03/18 05:29 BUN 22 mg/dL (9-20) H 05/03/18 05:29 Creatinine 1.2 mg/dL (0.8-1.5) 05/03/18 05:29 Estimated GFR > 60 ml/min 05/03/18 05:29 BUN/Creatinine Ratio 18 % 05/03/18 05:29 Glucose 129 mg/dL (75-100) H 05/03/18 05:29 POC Glucose 133 (70-105) H 05/02/18 16:04 Lactic Acid 1.00 mmol/L (0.7-2.0) 04/26/18 03:04 Uric Acid 8.6 mg/dL (3.5-7.6) H 04/26/18 00:26 Calcium 8.0 mg/dL (8.4-10.2) L 05/03/18 05:29 Phosphorus 2.60 mg/dL (2.5-4.5) 04/28/18 04:48 Magnesium 1.70 mg/dL (1.7-2.3) 04/30/18 05:12 Total Bilirubin 0.40 mg/dL (0.1-1.2) 04/30/18 05:12 AST 20 units/L (5-40) 04/30/18 05:12 ALT 12 units/L (7-56) 04/30/18 05:12 Alkaline Phosphatase 119 units/L (35-129) 04/30/18 05:12 Ammonia 20.0 umol/L (25-60) L 04/25/18 22:26 Total Creatine Kinase 24 units/L (55-170) L 04/26/18 13:54 CK-MB (CK-2) 1.8 ng/mL (0.0-4.0) 04/26/18 13:54 CK-MB (CK-2) Rel Index 7.5 (0-4) H 04/26/18 13:54 Troponin T 0.020 ng/mL (0.00-0.029) 04/26/18 13:54 Total Protein 5.0 g/dL (6.3-8.2) L D 04/30/18 05:12 Albumin 1.2 g/dL (3.9-5) L 04/30/18 05:12 Albumin/Globulin Ratio 0.3 % 04/30/18 05:12 Triglycerides 89 mg/dL (2-149) 04/25/18 22:26 Cholesterol 91 mg/dL (50-199) 04/25/18 22:26 LDL Cholesterol Direct 59 mg/dL (50-130) 04/25/18 22:26 HDL Cholesterol 23 mg/dL (40-59) L 04/25/18 22:26 Cholesterol/HDL Ratio 3.95 % 04/25/18 22:26 TSH 1.510 mlU/mL (0.270-4.200) 04/25/18 22:26 Urine Color Yellow (Yellow) 04/26/18 18:29 Urine Turbidity Clear (Clear) 04/26/18 18:29 Urine pH 5.0 (5.0-7.0) 04/26/18 18:29 Ur Specific [place] 1.008 (1.003-1.030) 04/26/18 18:29 Urine Protein <15 mg/dl mg/dL (Negative) 04/26/18 18:29 Urine Glucose (UA) Neg mg/dL (Negative) 04/26/18 18:29 Urine Ketones Tr mg/dL (Negative) 04/26/18 18:29 Urine Blood Mod (Negative) 04/26/18 18:29 Urine Nitrite Neg (Negative) 04/26/18 18:29 Urine Bilirubin Neg (Negative) 04/26/18 18:29 Urine Urobilinogen < 2.0 mg/dL (<2.0) 04/26/18 18:29 Ur Leukocyte Esterase Mod (Negative) 04/26/18 18:29 Urine WBC (Auto) 17.0 /HPF (0.0-6.0) H 04/26/18 18:29 Urine RBC (Auto) 64.0 /HPF (0.0-6.0) 04/26/18 18:29 U Epithel Cells (Auto) < 1.0 /HPF (0-13.0) 04/26/18 18:29 Urine Mucus Few /HPF 04/26/18 18:29 Urine Eosinophils 3% (None Seen) 04/26/18 18:29 Urine Creatinine 62.1 mg/dL (0.1-20.0) H 04/26/18 18:29 Urine Sodium 101 mmol/L 04/26/18 18:29 Fraction Sodium Excret 2.3 04/26/18 18:29 Plasma/Serum Alcohol < 0.01 % (0-0.07) 04/25/18 22:26 Nutrition/Malnutrition Assess - Dietary Evaluation Nutrition/Malnutrition Findings: Nutrition Notes Start: 04/27/18 14:56 Freq: Status: Active Protocol: Document 04/28/18 14:44 RM (Rec: 04/28/18 14:52 RM [id number]) Nutrition Notes Initial or Follow up Assessment Current Diagnosis Acute Kidney Injury CKD(stage I-IV) Diabetes Hypertension Other Pertinent Diagnosis GERD, Hypercholesterolemia, Acute metabolic encephalopathy ,AMS Subjective/Other Information Pt, pt , pt daughter, and pt granddaughter in room at time of visit. Pt family was not aware that pt has DM. Chemical Plant Operator Supervisor advised family to ask nurse to ask MD to come speak with them regarding any questions commercial lines underwriter was unable to answer. Reviewed Carbohydrate Counting. Gave handout. #1 Nutrition Diagnosis Food and nutrition-related knowledge deficit Etiology lack of prior education As Evidenced by Signs and Symptoms no prior knowledge of need for food and nutrition recommendations Nutrition Intervention Teaching Recipient Patient Family Spouse Learning Readiness Good Teaching Methods Discussion Handout Response to Teaching Verbalize understanding Education Handouts Provided Carbohydrate Counting for People with Diabetes Barriers to Learning No Barriers RD phone number provided Yes Patient aware of follow up options Yes Goal #1 Utilize carbohydrate counting Revisit per MD consult or patient Sign Off request:
[2018-05-03] MEDS: PRAVACHOL PO SCH (21:18)
[2018-05-04 04:52] LABS: Basophils # (Auto) 0.1 K/mm3 (0.0-0.1); Basophils % (Auto) 0.6 % (0.0-1.8); Eosinophils % (Auto) 0.4 % (0.0-4.3); Hematocrit 23.7 % (35.5-45.6); Hemoglobin 7.3 gm/dl (11.8-15.2); Lymphocytes # (Auto) 0.8 K/mm3 (1.2-5.4); Lymphocytes % (Auto) 7.1 % (13.4-35.0); Mean Corpuscular HGB Conc 31 % (32-34); Monocytes # (Auto) 0.7 K/mm3 (0.0-0.8); Monocytes % (Auto) 5.9 % (0.0-7.3); Platelet Count 208 K/mm3 (140-440); Red Blood Count 3.42 M/mm3 (3.65-5.03); Red Cell Distribution Width 18.7 % (13.2-15.2)
[2018-05-04 04:55] LABS: Mean Corpuscular Volume 69 fl (84-94)
[2018-05-04 05:06] LABS: BUN/Creatinine Ratio 20; Blood Urea Nitrogen 24 mg/dL (9-20); Calcium 7.8 mg/dL (8.4-10.2); Hemolysis Index 12
--- NOTE | 2018-05-04 07:23 | Progress Note ---
Assessment and Plan 1. Acute kidney injury: Patient admitted with elevated creatinine from his baseline. Likely Vasomotor / hemodynamic DEVIN in the setting of hypotension. Renal function is better. Left atrophic kidney. 2. FEN: Hypovolemia, improved. Metabolic acidosis, on sodium bicarbonate. 3. Hypovolemic shock: Resolved. 4. Acute metabolic encephalopathy. 5. Anemia. 6. H/o CVA with right hemiparesis. D/w his and daughter at the bedside. F/u with me in 1-2 weeks. Subjective Date of service: 05/04/18 Principal diagnosis: retention Interval history: Patient was seen and examined at the bedside. Objective - Vital Signs Vital signs: Vital Signs - 12hr 05/03/18 05/03/18 05/03/18 20:00 20:41 22:00 Temperature 99.1 F 99.1 F Pulse Rate 116 H Pulse Rate [ 108 H From Monitor] Respiratory 20 20 20 Rate Blood Pressure 116/63 Blood Pressure 116/63 [Left] O2 Sat by Pulse 100 97 Oximetry 05/04/18 05/04/18 01:40 06:38 Temperature 99.8 F H Pulse Rate 108 H 105 H Pulse Rate [ From Monitor] Respiratory 20 Rate Blood Pressure 110/62 Blood Pressure [Left] O2 Sat by Pulse 97 Oximetry - General Appearance General appearance: well-developed, well-nourished, appears stated age, obese, other (not in distress) EENT: ATNC Neck: supple Respiratory: Present: Clear to Ascultation Cardiology: regular, S1S2, no murmurs Gastrointestinal: normoactive bowel sounds, no tenderness, no distended, other (Martinez catheter) Integumentary: no rash, warm and dry Neurologic: hemiplegic (right side) Musculoskeletal: other (no edema) - Lab 05/04/18 13:19 05/04/18 03:51 Most recent lab results Calcium 7.8 mg/dL (8.4-10.2) L 05/04/18 03:51 Phosphorus 2.60 mg/dL (2.5-4.5) 04/28/18 04:48 Magnesium 1.70 mg/dL (1.7-2.3) 04/30/18 05:12 Urine Creatinine 62.1 mg/dL (0.1-20.0) H 04/26/18 18:29 Urine Sodium 101 mmol/L 04/26/18 18:29 Medications & Allergies - Medications Allergies/Adverse Reactions: Allergies Penicillins Allergy (Verified 04/11/18 16:00) Unknown Home Medications: Home Medications Medication Instructions Recorded Confirmed Last Taken Type Clopidogrel Bisulfate [Plavix] 75 mg PO DAILY #0 09/21/17 04/26/18 04/24/18 12:00 History Famotidine [Pepcid] 20 mg PO DAILY #0 09/21/17 04/26/18 04/24/18 History 20mg Simvastatin 40 mg PO HS 09/21/17 04/26/18 04/24/18 08:00 History 20 mg Sucralfate [Carafate] 1 gram PO DAILY #0 09/21/17 04/26/18 04/24/18 12:00 History 1 gm amLODIPine 5 mg PO DAILY 09/21/17 04/26/18 04/24/18 21:00 History 5 mg Torsemide [Demadex] 2.5 mg PO 3XW 04/26/18 04/26/18 Unknown History Docusate Sodium [Colace] 100 mg PO BID PRN #30 capsule 05/04/18 Unknown Rx Ferrous Sulfate [Feosol 325 MG tab] 325 mg PO BID #60 tablet 05/04/18 Unknown Rx levoFLOXacin [Levaquin TAB] 750 mg PO Q24HR #2 tablet 05/04/18 Unknown Rx Active Medications: Generic Name Dose Route Start Last Admin Trade Name Freq PRN Reason Stop Dose Admin Acetaminophen 650 mg 04/26/18 02:48 05/02/18 13:35 Tylenol PO 650 mg Q4H PRN Administration Fever >101 Acetaminophen/Hydrocodone Bitart 1 each 04/26/18 02:53 04/26/18 10:58 [place] 5/325 PO 1 each Q6HR PRN Administration Pain Clopidogrel Bisulfate 75 mg 04/26/18 10:00 05/03/18 09:41 Plavix PO 75 mg DAILY FREDI Administration Cyclobenzaprine HCl 5 mg 04/30/18 09:00 Flexeril PO Q8H PRN Muscle Spasm Dextrose 50 ml 04/26/18 03:10 D50w (25gm) Syringe IV PRN PRN Hypoglycemia Famotidine 20 mg 04/26/18 10:00 05/03/18 09:41 Pepcid PO 20 mg DAILY FREDI Administration Levofloxacin 750 mg 04/30/18 10:00 05/03/18 09:41 Levaquin PO 750 mg Q24HR FREDI Administration Magnesium Hydroxide 30 ml 04/28/18 11:58 05/02/18 19:46 Milk Of Magnesia PO 30 ml QDAY PRN Administration Constipation Ondansetron HCl 4 mg 04/26/18 02:49 Zofran IV Q8H PRN Nausea And Vomiting Pravastatin Sodium 80 mg 04/26/18 22:00 05/03/18 21:18 Pravachol PO 80 mg QHS FREDI Administration Sodium Bicarbonate 650 mg 04/28/18 20:00 05/03/18 21:18 Sodium Bicarbonate PO 650 mg TID FREDI Administration Sucralfate 1 gm 04/26/18 10:00 05/03/18 09:42 Carafate PO 1 gm DAILY FREDI Administration
[2018-05-04] MEDS: SODIUM BICARBONATE PO SCH ×2 (09:27→14:51)
[2018-05-04] MEDS: PLAVIX PO SCH (09:27)
[2018-05-04] MEDS: LEVAQUIN PO SCH (09:27)
[2018-05-04] MEDS: PEPCID PO SCH (09:27)
--- NOTE | 2018-05-04 10:00 | Progress Note ---
Assessment and Plan Assessment and plan: 77 yo man with a history of hypertension, CVA with right sided weakness, IDDM, dyslipidemia, GERD, OA and recent DEVIN was admitted through ER with AMS,, and hypotension, not responding to IVF resuscitation; admitted to ICU on levophed. As per old records patient was on 04/11/2018 after treatment of gout, right leg swelling, ARF --Anemia; stool for occult blood, iron profile Iron supplements --Left kidney atrophy 19% functional /Chronic Lt.hydronephrosis; urology following, continue Martinez catheterization,IR evaluation per IR, no intervention needed, evaluated by Dr. Pulido --Bladder outlet obstruction/urinary retention; Continuous Martinez catheterization, discharge home on Martinez per urology --Neck pain; pain meds, muscle relaxer C spine x ray Cervical spondylosis, neck collar as needed --Metabolic encephalopathy/altered level of consciousness;POA Back to baseline, supportive care --Hypovolemic shock; POA, off Pressor now blood pressures are reasonable level, --Possible pneumonia/left lower on CT abdomen; empiric antibiotics, Cultures negative to date --Leukocytosis; secondary to pneumonia/bronchitis --Acute kidney injury; vasomotor nephropathy; resolved --Hyponatremia/hypokalemia; resolved, closely monitor electrolytes --Severe malnutrition; hypo albuminemia; albumin 2.1 Nutrition supplements, Ensure Plus 3 times a day --History of CVA with right-sided weakness; supportive care Physical therapy, continue Plavix and statin --DVT prophylaxis; family refused Lovenox, continue SCDs --Full CODE STATUS --Physical therapy/OT family refused subacute rehabilitation, requested home health Possible discharge home in 1-2 days with home health if stable Plan of care reviewed with the daughter and at the bedside History Interval history: Patient seen and examined medical records reviewed Patient had mild drop in hemoglobin No evidence of external bleeding Patient is sleeping easily awakens Not in acute distress Vital signs noted Hospitalist Physical - Constitutional Vitals: Temp Pulse Resp BP Pulse Ox 98.2 F 104 H 22 113/61 96 05/04/18 07:30 05/04/18 07:30 05/04/18 07:30 05/04/18 07:30 05/04/18 07:30 General appearance: Present: no acute distress, well-nourished, obese - EENT Eyes: Present: PERRL, EOM intact - Neck Neck: Present: supple, normal ROM - Respiratory Respiratory effort: normal Respiratory: bilateral: diminished, negative: rales, rhonchi, wheezing - Cardiovascular Rhythm: regular Heart Sounds: Present: S1 & S2 - Extremities Extremities: no ischemia, No edema - Abdominal General gastrointestinal: soft, non-tender, non-distended, normal bowel sounds - Integumentary Integumentary: Present: clear, warm - Psychiatric Psychiatric: appropriate mood/affect, other (confused at times) - Neurologic Neurologic: other (right sided residual weakness) Results - Labs CBC & Chem 7: 05/04/18 03:51 05/04/18 03:51 Labs: Laboratory Last Values WBC 11.8 K/mm3 (4.5-11.0) H 05/04/18 03:51 RBC 3.42 M/mm3 (3.65-5.03) L 05/04/18 03:51 Hgb 7.3 gm/dl (11.8-15.2) L 05/04/18 03:51 Hct 23.7 % (35.5-45.6) L 05/04/18 03:51 MCV 69 fl (84-94) L 05/04/18 03:51 MCH 21 pg (28-32) L 05/04/18 03:51 MCHC 31 % (32-34) L 05/04/18 03:51 RDW 18.7 % (13.2-15.2) H 05/04/18 03:51 Plt Count 208 K/mm3 (140-440) 05/04/18 03:51 Lymph % (Auto) 7.1 % (13.4-35.0) L 05/04/18 03:51 Story % (Auto) 5.9 % (0.0-7.3) 05/04/18 03:51 Eos % (Auto) 0.4 % (0.0-4.3) 05/04/18 03:51 Baso % (Auto) 0.6 % (0.0-1.8) 05/04/18 03:51 Lymph # 0.8 K/mm3 (1.2-5.4) L 05/04/18 03:51 Story # 0.7 K/mm3 (0.0-0.8) 05/04/18 03:51 Eos # 0.0 K/mm3 (0.0-0.4) 05/04/18 03:51 Baso # 0.1 K/mm3 (0.0-0.1) 05/04/18 03:51 Add Manual Diff Complete 04/25/18 22:26 Total Counted 100 04/25/18 22:26 Seg Neutrophils % 86.0 % (40.0-70.0) H 05/04/18 03:51 Seg Neuts % (Manual) 91.0 % (40.0-70.0) H 04/25/18 22:26 Band Neutrophils % 3.0 % 04/25/18 22:26 Lymphocytes % (Manual) 4.0 % (13.4-35.0) L 04/25/18 22:26 Reactive Lymphs % (Man) 0 % 04/25/18 22:26 Monocytes % (Manual) 2.0 % (0.0-7.3) 04/25/18 22:26 Eosinophils % (Manual) 0 % (0.0-4.3) 04/25/18 22:26 Basophils % (Manual) 0 % (0.0-1.8) 04/25/18 22:26 Metamyelocytes % 0 % 04/25/18 22:26 Myelocytes % 0 % 04/25/18 22:26 Promyelocytes % 0 % 04/25/18 22:26 Blast Cells % 0 % 04/25/18 22:26 Nucleated RBC % Not Reportable 04/25/18 22:26 Seg Neutrophils # 10.2 K/mm3 (1.8-7.7) H 05/04/18 03:51 Seg Neutrophils # Man 10.0 K/mm3 (1.8-7.7) H 04/25/18 22:26 Band Neutrophils # 0.3 K/mm3 04/25/18 22:26 Lymphocytes # (Manual) 0.4 K/mm3 (1.2-5.4) L 04/25/18 22:26 Abs React Lymphs (Man) 0.0 K/mm3 04/25/18 22:26 Monocytes # (Manual) 0.2 K/mm3 (0.0-0.8) 04/25/18 22:26 Eosinophils # (Manual) 0.0 K/mm3 (0.0-0.4) 04/25/18 22:26 Basophils # (Manual) 0.0 K/mm3 (0.0-0.1) 04/25/18 22:26 Metamyelocytes # 0.0 K/mm3 04/25/18 22:26 Myelocytes # 0.0 K/mm3 04/25/18 22:26 Promyelocytes # 0.0 K/mm3 04/25/18 22:26 Blast Cells # 0.0 K/mm3 04/25/18 22:26 WBC Morphology Not Reportable 04/25/18 22:26 Hypersegmented Neuts Not Reportable 04/25/18 22:26 Hyposegmented Neuts Not Reportable 04/25/18 22:26 Hypogranular Neuts Not Reportable 04/25/18 22:26 Smudge Cells Not Reportable 04/25/18 22:26 Toxic Granulation Not Reportable 04/25/18 22:26 Toxic Vacuolation Not Reportable 04/25/18 22:26 Dohle Bodies Not Reportable 04/25/18 22:26 Pelger-Huet Anomaly Not Reportable 04/25/18 22:26 Alba Rods Not Reportable 04/25/18 22:26 Platelet Estimate Consistent w auto 04/25/18 22:26 Clumped Platelets Not Reportable 04/25/18 22:26 Plt Clumps, EDTA Not Reportable 04/25/18 22:26 Large Platelets Not Reportable 04/25/18 22:26 Giant Platelets Not Reportable 04/25/18 22:26 Platelet Satelliting Not Reportable 04/25/18 22:26 Plt Morphology Comment Not Reportable 04/25/18 22:26 RBC Morphology Not Reportable 04/25/18 22:26 Dimorphic RBCs Not Reportable 04/25/18 22:26 Polychromasia Not Reportable 04/25/18 22:26 Hypochromasia Not Reportable 04/25/18 22:26 Poikilocytosis Not Reportable 04/25/18 22:26 Anisocytosis 1+ 04/25/18 22:26 Microcytosis Not Reportable 04/25/18 22:26 Macrocytosis Not Reportable 04/25/18 22:26 Spherocytes Not Reportable 04/25/18 22:26 Pappenheimer Bodies Not Reportable 04/25/18 22:26 Sickle Cells Not Reportable 04/25/18 22:26 Target Cells Not Reportable 04/25/18 22:26 Tear Drop Cells Not Reportable 04/25/18 22:26 Ovalocytes Not Reportable 04/25/18 22:26 Helmet Cells Not Reportable 04/25/18 22:26 Mccoy-[place] Bodies Not Reportable 04/25/18 22:26 [place] Rings Not Reportable 04/25/18 22:26 Jazmin Cells Not Reportable 04/25/18 22:26 Bite Cells Not Reportable 04/25/18 22:26 Crenated Cell Not Reportable 04/25/18 22:26 Elliptocytes 1+ 04/25/18 22:26 Acanthocytes (Spur) Not Reportable 04/25/18 22:26 Rouleaux Not Reportable 04/25/18 22:26 Hemoglobin C Crystals Not Reportable 04/25/18 22:26 Schistocytes Not Reportable 04/25/18 22:26 Malaria parasites Not Reportable 04/25/18 22:26 James Bodies Not Reportable 04/25/18 22:26 Hem Pathologist Commnt No 04/25/18 22:26 Sodium 143 mmol/L (137-145) 05/04/18 03:51 Potassium 4.4 mmol/L (3.6-5.0) 05/04/18 03:51 Chloride 107.8 mmol/L (98-107) H 05/04/18 03:51 Carbon Dioxide 27 mmol/L (22-30) 05/04/18 03:51 Anion Gap 13 mmol/L 05/04/18 03:51 BUN 24 mg/dL (9-20) H 05/04/18 03:51 Creatinine 1.2 mg/dL (0.8-1.5) 05/04/18 03:51 Estimated GFR > 60 ml/min 05/04/18 03:51 BUN/Creatinine Ratio 20 % 05/04/18 03:51 Glucose 107 mg/dL (75-100) H 05/04/18 03:51 POC Glucose 133 (70-105) H 05/02/18 16:04 Lactic Acid 1.00 mmol/L (0.7-2.0) 04/26/18 03:04 Uric Acid 8.6 mg/dL (3.5-7.6) H 04/26/18 00:26 Calcium 7.8 mg/dL (8.4-10.2) L 05/04/18 03:51 Phosphorus 2.60 mg/dL (2.5-4.5) 04/28/18 04:48 Magnesium 1.70 mg/dL (1.7-2.3) 04/30/18 05:12 Total Bilirubin 0.40 mg/dL (0.1-1.2) 04/30/18 05:12 AST 20 units/L (5-40) 04/30/18 05:12 ALT 12 units/L (7-56) 04/30/18 05:12 Alkaline Phosphatase 119 units/L (35-129) 04/30/18 05:12 Ammonia 20.0 umol/L (25-60) L 04/25/18 22:26 Total Creatine Kinase 24 units/L (55-170) L 04/26/18 13:54 CK-MB (CK-2) 1.8 ng/mL (0.0-4.0) 04/26/18 13:54 CK-MB (CK-2) Rel Index 7.5 (0-4) H 04/26/18 13:54 Troponin T 0.020 ng/mL (0.00-0.029) 04/26/18 13:54 Total Protein 5.0 g/dL (6.3-8.2) L D 04/30/18 05:12 Albumin 1.2 g/dL (3.9-5) L 04/30/18 05:12 Albumin/Globulin Ratio 0.3 % 04/30/18 05:12 Triglycerides 89 mg/dL (2-149) 04/25/18 22:26 Cholesterol 91 mg/dL (50-199) 04/25/18 22:26 LDL Cholesterol Direct 59 mg/dL (50-130) 04/25/18 22:26 HDL Cholesterol 23 mg/dL (40-59) L 04/25/18 22:26 Cholesterol/HDL Ratio 3.95 % 04/25/18 22:26 TSH 1.510 mlU/mL (0.270-4.200) 04/25/18 22:26 Urine Color Yellow (Yellow) 04/26/18 18:29 Urine Turbidity Clear (Clear) 04/26/18 18:29 Urine pH 5.0 (5.0-7.0) 04/26/18 18:29 Ur Specific [place] 1.008 (1.003-1.030) 04/26/18 18:29 Urine Protein <15 mg/dl mg/dL (Negative) 04/26/18 18:29 Urine Glucose (UA) Neg mg/dL (Negative) 04/26/18 18:29 Urine Ketones Tr mg/dL (Negative) 04/26/18 18:29 Urine Blood Mod (Negative) 04/26/18 18:29 Urine Nitrite Neg (Negative) 04/26/18 18:29 Urine Bilirubin Neg (Negative) 04/26/18 18:29 Urine Urobilinogen < 2.0 mg/dL (<2.0) 04/26/18 18:29 Ur Leukocyte Esterase Mod (Negative) 04/26/18 18:29 Urine WBC (Auto) 17.0 /HPF (0.0-6.0) H 04/26/18 18:29 Urine RBC (Auto) 64.0 /HPF (0.0-6.0) 04/26/18 18:29 U Epithel Cells (Auto) < 1.0 /HPF (0-13.0) 04/26/18 18:29 Urine Mucus Few /HPF 04/26/18 18:29 Urine Eosinophils 3% (None Seen) 04/26/18 18:29 Urine Creatinine 62.1 mg/dL (0.1-20.0) H 04/26/18 18:29 Urine Sodium 101 mmol/L 04/26/18 18:29 Fraction Sodium Excret 2.3 04/26/18 18:29 Plasma/Serum Alcohol < 0.01 % (0-0.07) 04/25/18 22:26 Nutrition/Malnutrition Assess - Dietary Evaluation Nutrition/Malnutrition Findings: Nutrition Notes Start: 04/27/18 14:56 Freq: Status: Active Protocol: Document 04/28/18 14:44 RM (Rec: 04/28/18 14:52 RM [id number]) Nutrition Notes Initial or Follow up Assessment Current Diagnosis Acute Kidney Injury CKD(stage I-IV) Diabetes Hypertension Other Pertinent Diagnosis GERD, Hypercholesterolemia, Acute metabolic encephalopathy ,AMS Subjective/Other Information Pt, pt , pt daughter, and pt granddaughter in room at time of visit. Pt family was not aware that pt has DM. Applications Processor advised family to ask nurse to ask MD to come speak with them regarding any questions telegraphic typewriter repairer was unable to answer. Reviewed Carbohydrate Counting. Gave handout. #1 Nutrition Diagnosis Food and nutrition-related knowledge deficit Etiology lack of prior education As Evidenced by Signs and Symptoms no prior knowledge of need for food and nutrition recommendations Nutrition Intervention Teaching Recipient Patient Family Spouse Learning Readiness Good Teaching Methods Discussion Handout Response to Teaching Verbalize understanding Education Handouts Provided Carbohydrate Counting for People with Diabetes Barriers to Learning No Barriers RD phone number provided Yes Patient aware of follow up options Yes Goal #1 Utilize carbohydrate counting Revisit per MD consult or patient Sign Off request:
[2018-05-04] MEDS: MILK OF MAGNESIA PO PRN (10:03)
[2018-05-04] MEDS ORDERED: MILK OF MAGNESIA PO ONE (10:57)
[2018-05-04 11:24] LABS: % Iron Saturation 17.2 %
[2018-05-04] MEDS ORDERED: CARAFATE PO SCH (12:00)
[2018-05-04 13:37] LABS: Hematocrit 26.2 % (35.5-45.6); Hemoglobin 8.2 gm/dl (11.8-15.2)
[2018-05-04 13:56] VITALS: BP 109/64
--- NOTE | 2018-05-04 14:28 | Discharge Summary ---
Providers - Providers Date of Admission: 04/26/18 04:08 Date of discharge: 05/04/18 Attending physician: SIMIN YOUNGER 04/26/18 12:40 Consult to Physician [CONS] Routine Comment: Consulting Provider: LES NUNO Physician Instructions: I notified Reason For Exam: Urinary retention, chronic UPJ obstruction 04/27/18 08:47 Consult to Physician [CONS] Routine Comment: Consulting Provider: ЕЛЕНА CESPEDES Physician Instructions: Reason For Exam: CKD 04/27/18 13:46 Physical Therapy Evaluation and Treat [CONS] Routine Comment: Reason For Exam: General Weakness/Debility 04/29/18 08:14 Speech Therapy Evaluation and Treat [CONS] Routine Reason For Exam: cough/aspiration risk Primary care physician: KUSUM ALVAREZ Hospitalization Condition: Serious Hospital course: 77 yo man with a history of hypertension, CVA with right sided weakness, IDDM, dyslipidemia, GERD, OA and recent DEVIN was admitted through ER with AMS,, and hypotension, not responding to IVF resuscitation; admitted to ICU on levophed. As per old records patient was on 04/11/2018 after treatment of gout, right leg swelling, ARF. Patient also had pneumonia, initially started on IV Levaquin and later changed to oral for total 10 days Patient had acute kidney injury, secondary to bladder Obstruction and vasomotor nephropathy, evaluated by nephrology Completely resolved, patient was seen by urologist for urinary retention, advised continuous Durán catheterization Patient also had a renal ultrasound and nuclear scan of the kidneys, which revealed chronic hydronephrosis on the left side With atrophic kidney, interventional radiologist evaluated in consultation, no surgical procedure needed at this point Patient will be discharged with Durán in place and follow with urologist for further evaluation and management. The patient is comfortable No new complaints Vital signs stable Physical examination unremarkable Hemodynamically and clinically stable for discharge Discharge diagnosis: --Left kidney atrophy 19% functional /Chronic Lt.hydronephrosis; urology following, continue Durán catheterization, IR, evaluated the patient, no surgical intervention at this point they tell me --Bladder outlet obstruction/urinary retention; Continuous Durán catheterization, discharge home on Durán per urology --Neck pain; pain meds, muscle relaxer C spine x ray Cervical spondylosis, neck collar as needed --Metabolic encephalopathy/altered level of consciousness;POA Back to baseline, supportive care --Hypovolemic shock; POA, off Pressor now blood pressures are reasonable level, --Possible pneumonia/left lower on CT abdomen; empiric antibiotics, Cultures negative to date --Leukocytosis; secondary to pneumonia/bronchitis --Acute kidney injury; vasomotor nephropathy; resolved --Hyponatremia/hypokalemia; resolved, closely monitor electrolytes --Severe malnutrition; hypo albuminemia; albumin 2.1 Nutrition supplements, Ensure Plus 3 times a day --History of CVA with right-sided weakness; supportive care Physical therapy, continue Plavix and statin --DVT prophylaxis; family refused Lovenox, continue SCDs --Full CODE STATUS --Physical therapy/OT Patient and family refused acute/subacute rehabilitation Requested home with home health. Patient is hemodynamically and clinically stable at discharge Disposition: [facility]/RUTH-06 HOME [facility] Time spent for discharge: 35 min Core Measure Documentation - Palliative Care Palliative Care/ Comfort Measures: Not Applicable - Core Measures Any of the following diagnoses?: none Exam - Constitutional Vitals: Temp Pulse Resp BP Pulse Ox 99.1 F 109 H 20 109/64 98 05/04/18 13:47 05/04/18 13:47 05/04/18 13:47 05/04/18 13:47 05/04/18 13:47 General appearance: Present: no acute distress, well-nourished, obese - EENT Eyes: Present: PERRL, EOM intact - Neck Neck: Present: supple, normal ROM Plan Activity: advance as tolerated, fall precautions Diet: other (soft diet ,advance as tolerated) Special Instructions: physical therapy Additional Instructions: Discharge home with durán . do not remove durán till you see Urologist. Fall precautions. Aspiration precautions Follow up with: KUSUM ALVAREZ MD [Primary Care Provider] - 3-5 Days TJ STANLEY MD [Staff Physician] - 7 Days ЕЛЕНА CESPEDES MD [Staff Physician] - 7 Days Prescriptions: Docusate Sodium [Colace] 100 mg PO BID PRN #30 capsule PRN Reason: Constipation Ferrous Sulfate [Feosol 325 MG tab] 325 mg PO BID #60 tablet levoFLOXacin [Levaquin TAB] 750 mg PO Q24HR #2 tablet
== END 2018-05-04 17:45 | disposition home health service (06) | DRG 314 ==
LOC: ED 21:19 → CC1 04-26 04:08 → 2B-ACE 04-26 16:03
PROVIDERS: ADMIT Internal Medicine; ATTEND Internal Medicine
PROC: 06HM33Z Insertion of Infusion Device into Right Femoral Vein, Percutaneous Approach (ICD-10-PCS; principal; 2018-04-25)
PROC: B54BZZA Ultrasonography of Right Lower Extremity Veins, Guidance (ICD-10-PCS; 2018-04-25)
DX: I95.9 Hypotension, unspecified (principal); N17.0 Acute kidney failure with tubular necrosis; G93.41 Metabolic encephalopathy; J18.9 Pneumonia, unspecified organism; E43 Unspecified severe protein-calorie malnutrition; R57.1 Hypovolemic shock; E87.1 Hypo-osmolality and hyponatremia; I69.351 Hemiplegia and hemiparesis following cerebral infarction affecting right dominant side; R65.10 Systemic inflammatory response syndrome (SIRS) of non-infectious origin without acute organ dysfunction; I13.0 Hypertensive heart and chronic kidney disease with heart failure and stage 1 through stage 4 chronic kidney disease, or unspecified chronic kidney disease; E87.2 Acidosis; N13.0 Hydronephrosis with ureteropelvic junction obstruction; N32.0 Bladder-neck obstruction; E78.5 Hyperlipidemia, unspecified; K21.9 Gastro-esophageal reflux disease without esophagitis; J45.909 Unspecified asthma, uncomplicated; E11.22 Type 2 diabetes mellitus with diabetic chronic kidney disease; M19.90 Unspecified osteoarthritis, unspecified site; I50.9 Heart failure, unspecified; M10.9 Gout, unspecified; N18.3 Chronic kidney disease, stage 3 (moderate); D50.9 Iron deficiency anemia, unspecified; I25.10 Atherosclerotic heart disease of native coronary artery without angina pectoris; E66.9 Obesity, unspecified; N26.1 Atrophy of kidney (terminal); E87.6 Hypokalemia; R33.9 Retention of urine, unspecified; M54.9 Dorsalgia, unspecified; Z96.651 Presence of right artificial knee joint; Z87.891 Personal history of nicotine dependence; Z68.33 Body mass index [BMI] 33.0-33.9, adult; Z88.0 Allergy status to penicillin; Z79.84 Long term (current) use of oral hypoglycemic drugs
CPT/HCPCS: 36415; 70450; 71045; 72040; 74176; 78707; 80048; 80053; 80061; 80320; 81001; 82140; 82270; 82550; 82553; 82565; 82570; 82962; 83550; 83735; 84100; 84295; 84300; 84443; 84484; 84550; 85007; 85014; 85018; 85025; 87040; 87086; 87116; 87205; 89050; 93005; 93010; 96361; 96365; G0378; A9270-GY; A9562; G0480; J1650; J1956; J7030

== ENCOUNTER 2018-05-07 09:44 | Inpatient (IN) | payer MEDICARE ==
[2018-05-07] MEDS ORDERED: NACL 0.9% 1000 ML IV ONE (10:19)
--- NOTE | 2018-05-07 10:32 | Emergency Department Report ---
HPI - General Chief Complaint: Altered Mental Status Time Seen by Provider: 05/07/18 10:18 - HPI HPI: Room 23 The patient is 77-year-old male presenting with chief complaint fever and weakness. The patient's daughter states the patient had a Martinez catheter placed 04/25/2018 secondary to urinary retention. Today the patient began complaining of feeling weak and that he just wanted to lay down in bed. Family noted that the patient felt hot and he was not as alert as he normally is. EMS was called and the patient was found to be febrile at 102F. Patient appears fatigued but denies any specific complaints Location: [See above] Duration: One day Quality: Weakness Severity: Moderate Modifying factors: [see above] Context: [see above] Mode of transportation: [not driving] ED Past Medical Hx - Past Medical History Previous Medical History?: Yes Hx Hypertension: Yes Hx CVA: Yes (with right-sided weakness,walks with maria l walker,right arm flaccid) Hx Diabetes: Yes Hx GERD: Yes Hx Asthma: Yes Additional medical history: elevated cholesterol - Surgical History Past Surgical History?: Yes Additional Surgical History: right knee total knee - Family History Family history: no significant - Social History Smoking Status: Never Smoker Substance Use Type: None - Medications Home Medications: Home Medications Medication Instructions Recorded Confirmed Last Taken Type Clopidogrel Bisulfate [Plavix] 75 mg PO DAILY #0 09/21/17 05/07/18 04/24/18 12:00 History Famotidine [Pepcid] 20 mg PO DAILY #0 09/21/17 05/07/18 04/24/18 History 20mg Simvastatin 40 mg PO HS 09/21/17 05/07/18 04/24/18 08:00 History 20 mg Sucralfate [Carafate] 1 gram PO BID #0 09/21/17 05/07/18 04/24/18 12:00 History 1 gm Ferrous Sulfate [Feosol 325 MG tab] 325 mg PO BID #60 tablet 05/04/18 05/07/18 Unknown Rx ED Review of Systems ROS: Stated complaint: SEPSIS Other details as noted in HPI Comment: Unobtainable due to pts medical conditions Constitutional: fever Physical Exam - Physical Exam Vital Signs: Vital Signs 05/07/18 10:07 Temperature 99.0 F Pulse Rate 109 H Respiratory 28 H Rate Blood Pressure 110/64 [Left] O2 Sat by Pulse 97 Oximetry Physical Exam: GENERAL: The patient is well-developed well-nourished male lying on stretcher not appearing to be in acute distress. Appears fatigued HEENT: Normocephalic. Atraumatic. Extraocular motions are intact. Patient has moist mucous membranes. NECK: Supple. Trachea midline CHEST/LUNGS: Clear to auscultation. There is no respiratory distress noted. HEART/CARDIOVASCULAR: Regular. There is no tachycardia. There is no gallop rub or murmur. ABDOMEN: Abdomen is soft, nontender. Patient has normal bowel sounds. There is no abdominal distention. SKIN: There is no rash. There is no edema. There is no diaphoresis. NEURO: The patient is awake but lethargic. The patient is cooperative. The patient has normal speech MUSCULOSKELETAL: There is no evidence of acute injury. ED Course Vital Signs 05/07/18 10:07 Temperature 99.0 F Pulse Rate 109 H Respiratory 28 H Rate Blood Pressure 110/64 [Left] O2 Sat by Pulse 97 Oximetry ED Medical Decision Making - Lab Data Result diagrams: 05/07/18 10:37 05/07/18 10:37 - EKG Data -: EKG Interpreted by Me EKG shows normal: sinus rhythm Rate: tachycardia (110 bpm) - EKG Data When compared to previous EKG there are: previous EKG unavailable Interpretation: other (no ischemic changes seen) - Radiology Data Radiology results: report reviewed (chest x-ray), image reviewed (chest x-ray) interpreted by me: Chest x-ray-right lower lobe atelectasis. Increased haziness in the left lung zone but no focal infiltrate Findings [facility] [address] [place] [address] XRay Report Signed Patient: CLAUDIA MONTES MR#: [id number] : 1940 Acct:[id number] Age/Sex: 77 / M ADM Date: 05/07/18 Loc: ED Attending Dr: Ordering Physician: DELILAH PAK MD Date of Service: 05/07/18 Procedure(s): XR chest 1V ap Accession Number(s): [id number] cc: DELILAH PAK MD Fluoro Time In Minutes: AP CHEST: HISTORY: Fever Mild congestive changes have resolved since 04/29/18. Trace right pleural effusion versus pleural thickening is unchanged. Heart and mediastinal structures are within normal limits. The bony thorax is grossly intact. IMPRESSION: Trace right pleural effusion versus pleural thickening. Transcribed By: TTR Dictated By: EL ROLLINS JR, MD Electronically Authenticated By: EL ROLLINS JR, MD Signed Date/Time: 05/07/18 103 DD/ 103 TD/TT: 05/07/18 103 - Differential Diagnosis sepsis, UTI, pyelonephritis, pneumonia, bacteremia Critical care attestation.: If time is entered above; I have spent that time in minutes in the direct care of this critically ill patient, excluding procedure time. ED Disposition Clinical Impression: Fever, Weakness, Hypernatremia Disposition: OP ADMIT IP TO THIS HOSP Is pt being admited?: Yes Does the pt Need Aspirin: No Condition: Fair Time of Disposition: 13:02 (hospitalist paged (Dr Schmidt))
--- NOTE | 2018-05-07 10:43 | XRay Report ---
AP CHEST: HISTORY: Fever Mild congestive changes have resolved since 04/29/18. Trace right pleural effusion versus pleural thickening is unchanged. Heart and mediastinal structures are within normal limits. The bony thorax is grossly intact. IMPRESSION: Trace right pleural effusion versus pleural thickening.
[2018-05-07] MEDS ORDERED: AZACTAM/NS 1 GM/50 ML 1 GM/50 ML VIAL IV SCH (11:00)
[2018-05-07 11:02] LABS: Basophils # (Auto) 0.1 K/mm3 (0.0-0.1); Basophils % (Auto) 0.4 % (0.0-1.8); Eosinophils % (Auto) 0.2 % (0.0-4.3); Hematocrit 27.8 % (35.5-45.6); Hemoglobin 8.1 gm/dl (11.8-15.2); Lymphocytes # (Auto) 1.1 K/mm3 (1.2-5.4); Mean Corpuscular HGB Conc 29 % (32-34); Mean Corpuscular Volume 72 fl (84-94); Monocytes # (Auto) 0.7 K/mm3 (0.0-0.8); Monocytes % (Auto) 5.5 % (0.0-7.3); Platelet Count 236 K/mm3 (140-440); Red Blood Count 3.86 M/mm3 (3.65-5.03); Red Cell Distribution Width 18.6 % (13.2-15.2)
[2018-05-07 11:22] LABS: Albumin 1.5 g/dL (3.9-5); Calcium 8.1 mg/dL (8.4-10.2)
[2018-05-07 12:47] LABS: Bacteria,Urine 1+ /HPF (Negative); Bilirubin,Urine NEG (Negative); Blood,Urine SM (Negative); Color,Urine Yellow (Yellow); Mucus,Urine FEW /HPF; Protein,Urine <15 mg/dL mg/dL (Negative); Urobilinogen,Urine < 2.0 mg/dL (<2.0)
--- NOTE | 2018-05-07 21:30 | Event Note ---
Date: 05/07/18 See Dictated H/p in reports FEver Elevated Lactic acid No source of infection Identified
[2018-05-07] MEDS ORDERED: TORADOL IV ONE (22:41)
[2018-05-07] MEDS ORDERED: TYLENOL PO PRN (22:42)
[2018-05-07] MEDS: AZACTAM/NS 1 GM/50 ML 1 GM/50 ML VIAL IV SCH (22:50)
[2018-05-08] MEDS ORDERED: PERCOCET 5/325 PO PRN (02:22)
[2018-05-08] MEDS ORDERED: TYLENOL PO PRN (02:22)
[2018-05-08] MEDS ORDERED: DILAUDID IV PRN (02:22)
[2018-05-08] MEDS ORDERED: SODIUM CHLORIDE FLUSH SYRINGE 10 ML IV PRN (02:22)
[2018-05-08] MEDS ORDERED: ZOFRAN IV PRN (02:22)
--- NOTE | 2018-05-08 03:25 | History and Physical Report ---
CHIEF COMPLAINT: Fever and weakness. HISTORY OF PRESENT ILLNESS: A 77-year-old male recently discharged after being treated for sepsis, hypertension, urinary retention, and pneumonia and recently discharged on 04/27/2018, brought in by family for recurring fever and generalized weakness. No cough. No dysuria. The patient has indwelling Martinez catheter for urinary retention. No shortness of breath. No recent travel. Old medical records reviewed. PAST MEDICAL HISTORY: Significant for hypertension, cerebrovascular accident, diabetes, GERD, asthma and hyperlipidemia. PAST SURGICAL HISTORY: Total knee replacement on the right side. FAMILY HISTORY: Hypertension. SOCIAL HISTORY: Does not smoke. CURRENT MEDICATIONS: On chart. REVIEW OF SYSTEMS: Significant for recurrent fever. The patient recently discharged on 04/27/2018. Old records reviewed. PHYSICAL EXAMINATION: GENERAL: Elderly male, cooperative during examination. VITAL SIGNS: Temperature at home was 142 but here it was 99, pulse is 113, respirations are 17, sats are 98%, blood pressure is 137/101. HEENT: Unremarkable. Pupils are equal and reactive. NECK: Supple, no lymphadenopathy, no thyromegaly. LUNGS: Clear to auscultation and percussion. Good air entry. CARDIOVASCULAR: S1, S2 heard. No gallop, no murmur, no rub. Apical impulse in left fifth intercostal space and midclavicular line. ABDOMEN: Soft and benign. No hepatosplenomegaly. No guarding, no rigidity. Hernial orifices are normal. EXTREMITIES: Good pedal pulses. CENTRAL NERVOUS SYSTEM: Alert and oriented. LABORATORY DATA: Labs are significant for white count of 13,400, H and H is 8.1 and 27.8, platelet count is 236,000. Lactic acid is 2.1. Sodium is 150. Chloride is 112. BUN and creatinine is 29 and 1.4. Urine shows white blood cells of 3. Chest x-ray shows trace right pleural effusion versus pleural thickening. ASSESSMENT AND PLAN: 1. Bacteremia. No sepsis at this point. The patient has a high white count of 13.4. Chest x-ray is clear. Urine is clear. We will treat empirically with IV cefepime. No source of infection. No temperature at the time of admission except temperature at home. We will treat with cefepime for 24 hours. If afebrile, the patient to be discharged. 2. Hypernatremia. We will give half normal saline for the time being. 3. Prerenal azotemia. IV fluids. 4. Hypertension. Continue antihypertensives. 5. Hyperlipidemia. Continue simvastatin. 6. Gastroesophageal reflux disease. Continue famotidine and sucralfate. 7. Coronary artery disease. Continue Plavix 75 daily. 8. Deep venous thrombosis prophylaxis. Lovenox 40 mg subcutaneous daily. JOB# [id number] VSM/NTS MTDD
[2018-05-08] MEDS: NACL 0.45% 1000 ML 1,000 ML IV SCH ×2 (03:55→19:15)
[2018-05-08] MEDS: MAXIPIME/NS 1 GM/100 ML 1 GM/100 ML BAG IV SCH ×3 (06:04→21:43)
[2018-05-08] MEDS: AZACTAM/NS 1 GM/50 ML 1 GM/50 ML VIAL IV SCH ×3 (06:37→21:43)
[2018-05-08] MEDS: SODIUM CHLORIDE FLUSH SYRINGE 10 ML IV SCH ×2 (10:00→21:44)
[2018-05-08] MEDS: CARAFATE PO SCH ×2 (12:18→21:43)
[2018-05-08] MEDS: PLAVIX PO SCH (12:18)
[2018-05-08] MEDS: PEPCID PO SCH (12:18)
[2018-05-08] MEDS: FEOSOL PO SCH ×2 (12:18→21:43)
--- NOTE | 2018-05-08 14:14 | Cat Scan Report ---
CT CHEST WITHOUT CONTRAST: HISTORY: Fever, question infiltrate. COMPARISON: AP chest performed yesterday. TECHNIQUE: Helical CT in 1.25mm intervals without IV contrast. Sagittal and coronal reformatted images. FINDINGS: Thyroid gland: Normal. Tracheobronchial tree: Normal. Esophagus: Normal. Heart: Normal. Pericardium: Normal. Mediastinum: Normal. Lung Thomas: Interstitial markings are prominent in both lower lobes. This appears to represent chronic interstitial changes. No infiltrate with air bronchograms is identified. No mass or nodule. Pleural Spaces: Mild chronic right pleural thickening is suspected. No left pleural process. No pneumothorax. Musculoskeletal: Intact. IMPRESSION: No acute cardiopulmonary process is identified. Chronic interstitial changes at the lung bases. Bibasilar infiltrates is thought less likely. Chronic right pleural thickening.
--- NOTE | 2018-05-08 15:32 | Progress Note ---
Assessment and Plan Assessment and plan: Assessment/ Plan Suspected Acute cystitis with indwelling durán cath continue IV abx Urine culture today Fever continue IV abx await cultures Profound Anemia of chronic disease Monitor H/H closely continue Iron tabs Generalized weakness/ acute on chronic physical debility fall and aspiration precautions at all times Acute Delirium monitor mental status closely h/o CVA supportive care Aspiration Risk speech eval obesity supporitve care Full code status Further pt mgt per hospital course Disposition Plan: f/u ST, await culture results, PT eval Total Time Spent with Patient (Minutes): More than 50 mins spent History Interval history: HPI from ER records The patient is 77-year-old male presenting with chief complaint fever and weakness. The patient's daughter states the patient had a Durán catheter placed 04/25/2018 secondary to urinary retention. Today the patient began complaining of feeling weak and that he just wanted to lay down in bed. Family noted that t he patient felt hot and he was not as alert as he normally is. EMS was called and the patient was found to be febrile at 102F. Patient appears fatigued but denies any specific complaints Brief Hospital course: pt was admitted to the hospital medicine service, managed with IV antibiotic, Cultures are still pending. Urine culture ordered today. Subjective : Pt seen and exam by bedside, Met and d/w daughter in details about pt's diagnosis and possible causes of his fever. Reviewed patient's labs and XRs with her. CT chest w/o contrast was obtained and showed no evidence of Pna or consolida tion. Informed daughter that the likely source of pt's fever is likely a UTI. And that culture results are pending at this time. Daughter was appreciative of my d/w her. multiple questions were answered to the best of my ability. Hospitalist Physical - Constitutional Vitals: Temp Pulse Resp BP Pulse Ox 97.9 F 111 H 20 122/66 90 05/08/18 13:33 05/08/18 10:40 05/08/18 13:33 05/08/18 13:33 05/08/18 07:30 General appearance: Present: no acute distress, well-nourished, obese, other (elderly male, pale) - EENT Eyes: Present: PERRL, EOM intact ENT: hearing intact, clear oral mucosa, other (dry tongue) - Neck Neck: Present: supple, normal ROM - Respiratory Respiratory: bilateral: rhonchi, negative: diminished, rales, wheezing - Cardiovascular Rhythm: other (S1 S2) Heart Sounds: Present: S1 & S2 - Extremities Extremities: pulses intact, normal temperature - Abdominal General gastrointestinal: soft, non-tender, normal bowel sounds, other (obese) - Integumentary Integumentary: Present: clear, warm, dry - Psychiatric Psychiatric: appropriate mood/affect, other (inter) - Neurologic Neurologic: CNII-XII intact, other (generalized weakness) - Allied Health Allied health notes reviewed: nursing, case management Results - Labs CBC & Chem 7: 05/07/18 10:37 05/07/18 10:37 Labs: Laboratory Last Values WBC 13.4 K/mm3 (4.5-11.0) H 05/07/18 10:37 RBC 3.86 M/mm3 (3.65-5.03) 05/07/18 10:37 Hgb 8.1 gm/dl (11.8-15.2) L 05/07/18 10:37 Hct 27.8 % (35.5-45.6) L 05/07/18 10:37 MCV 72 fl (84-94) L 05/07/18 10:37 MCH 21 pg (28-32) L 05/07/18 10:37 MCHC 29 % (32-34) L 05/07/18 10:37 RDW 18.6 % (13.2-15.2) H 05/07/18 10:37 Plt Count 236 K/mm3 (140-440) 05/07/18 10:37 Lymph % (Auto) 8.0 % (13.4-35.0) L 05/07/18 10:37 [place] % (Auto) 5.5 % (0.0-7.3) 05/07/18 10:37 Eos % (Auto) 0.2 % (0.0-4.3) 05/07/18 10:37 Baso % (Auto) 0.4 % (0.0-1.8) 05/07/18 10:37 Lymph # 1.1 K/mm3 (1.2-5.4) L 05/07/18 10:37 [place] # 0.7 K/mm3 (0.0-0.8) 05/07/18 10:37 Eos # 0.0 K/mm3 (0.0-0.4) 05/07/18 10:37 Baso # 0.1 K/mm3 (0.0-0.1) 05/07/18 10:37 Seg Neutrophils % 85.9 % (40.0-70.0) H 05/07/18 10:37 Seg Neutrophils # 11.5 K/mm3 (1.8-7.7) H 05/07/18 10:37 APTT 30.3 Sec. (24.2-36.6) 05/07/18 10:37 Sodium 150 mmol/L (137-145) H 05/07/18 10:37 Potassium 4.2 mmol/L (3.6-5.0) 05/07/18 10:37 Chloride 112.8 mmol/L (98-107) H 05/07/18 10:37 Carbon Dioxide 24 mmol/L (22-30) 05/07/18 10:37 Anion Gap 17 mmol/L 05/07/18 10:37 BUN 29 mg/dL (9-20) H 05/07/18 10:37 Creatinine 1.4 mg/dL (0.8-1.5) 05/07/18 10:37 Estimated GFR 59 ml/min 05/07/18 10:37 BUN/Creatinine Ratio 21 % 05/07/18 10:37 Glucose 124 mg/dL (75-100) H 05/07/18 10:37 POC Glucose 112 (70-105) H 05/08/18 12:13 Hemoglobin A1c 7.6 % (4-6) H 05/08/18 03:15 Lactic Acid 1.60 mmol/L (0.7-2.0) 05/07/18 13:21 Calcium 8.1 mg/dL (8.4-10.2) L 05/07/18 10:37 Total Bilirubin 1.20 mg/dL (0.1-1.2) 05/07/18 10:37 AST 47 units/L (5-40) H 05/07/18 10:37 ALT 21 units/L (7-56) 05/07/18 10:37 Alkaline Phosphatase 154 units/L (35-129) H 05/07/18 10:37 Total Protein 6.2 g/dL (6.3-8.2) L 05/07/18 10:37 Albumin 1.5 g/dL (3.9-5) L 05/07/18 10:37 Albumin/Globulin Ratio 0.3 % 05/07/18 10:37 Urine Color Yellow (Yellow) 05/07/18 12:20 Urine Turbidity Clear (Clear) 05/07/18 12:20 Urine pH 5.0 (5.0-7.0) 05/07/18 12:20 Ur Specific [place] 1.012 (1.003-1.030) 05/07/18 12:20 Urine Protein <15 mg/dl mg/dL (Negative) 05/07/18 12:20 Urine Glucose (UA) Neg mg/dL (Negative) 05/07/18 12:20 Urine Ketones Tr mg/dL (Negative) 05/07/18 12:20 Urine Blood Sm (Negative) 05/07/18 12:20 Urine Nitrite Neg (Negative) 05/07/18 12:20 Urine Bilirubin Neg (Negative) 05/07/18 12:20 Urine Urobilinogen < 2.0 mg/dL (<2.0) 05/07/18 12:20 Ur Leukocyte Esterase Neg (Negative) 05/07/18 12:20 Urine WBC (Auto) 3.0 /HPF (0.0-6.0) 05/07/18 12:20 Urine RBC (Auto) 7.0 /HPF (0.0-6.0) 05/07/18 12:20 U Epithel Cells (Auto) < 1.0 /HPF (0-13.0) 05/07/18 12:20 Urine Bacteria (Auto) 1+ /HPF (Negative) 05/07/18 12:20 Urine Mucus Few /HPF 05/07/18 12:20 - Imaging and Cardiology Chest x-ray: report reviewed CT scan - chest: report reviewed CT Scan - head: report reviewed Nutrition/Malnutrition Assess - Dietary Evaluation Nutrition/Malnutrition Findings: Nutrition Notes Start: 05/08/18 09:32 Freq: Status: Active Protocol: Document 05/08/18 09:32 TW (Rec: 05/08/18 10:56 TW [id number]) Co-Sign 05/08/18 09:32 RM Nutrition Notes 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 Height 5 ft 6 in Weight 92.254 kg [place] Body Weight (kg) 64.54 BMI 32.8 Weight Status Overweight Subjective/Other Information RN screen for New onset DM and MST score. Pt nonverbal. 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 Pt family member declined ONS d/t pt disliking them. Pt family member stated that she has known about the patients DM for awhile now, and that she knows how to handle it. Provided pt family member with continuing DM education. Per family member, pt has no signifiant wt loss and she is unsure of UBW. No orbital, clavicle or temportal wasting. Percent of energy/protein needs met: 22%/14% Burn Absent Trauma Absent #1 Nutrition Diagnosis Inadequate oral intake Etiology AMS As Evidenced by Signs and Symptoms Pt meeting 22% of kcal needs and 14% of protein needs Is patient on ventilator? No Is Patient Ambulatory and/or Out of Bed No [facility] [phone] Calculation Used for Recommendations [facility] Additional Notes Protein needs: AdBW: 78 KG (1-1.2 g/kg) (78-94 g/day) Fluid needs: 1ml/ kcal Nutrition Intervention Change Diet Order: Continue current Teaching Recipient Family Learning Readiness Good Teaching Methods Discussion Handout Response to Teaching Verbalize understanding Education Handouts Provided Carbohydrate Counting for People with Diabetes Barriers to Learning No Barriers RD phone number provided Yes Patient aware of follow up options Yes Goal #1 Meet at least 75% of kcal and protein needs Anticipated Discharge Needs: Cardiac Diet Follow-Up By: 05/12/18 Additional Comments F/U for PO and ONS intake
[2018-05-08] MEDS: PRAVACHOL PO SCH (21:44)
[2018-05-08] MEDS ORDERED: NON-FORMULARY (Simvastatin 40 MG) PO SCH (22:00)
[2018-05-09 01:15] LABS: Hematocrit 25.1 % (35.5-45.6); Hemoglobin 7.7 gm/dl (11.8-15.2); Mean Corpuscular HGB Conc 31 % (32-34); Platelet Count 219 K/mm3 (140-440); Red Blood Count 3.64 M/mm3 (3.65-5.03); Red Cell Distribution Width 18.7 % (13.2-15.2)
[2018-05-09 01:40] LABS: Mean Corpuscular Volume 69 fl (84-94)
[2018-05-09 06:08] LABS: Basophils # (Auto) 0.1 K/mm3 (0.0-0.1); Basophils % (Auto) 0.5 % (0.0-1.8); Eosinophils # (Auto) 0.1 K/mm3 (0.0-0.4); Eosinophils % (Auto) 0.9 % (0.0-4.3); Hematocrit 25.2 % (35.5-45.6); Hemoglobin 7.6 gm/dl (11.8-15.2); Lymphocytes # (Auto) 0.9 K/mm3 (1.2-5.4); Lymphocytes % (Auto) 6.8 % (13.4-35.0); Mean Corpuscular HGB Conc 30 % (32-34); Monocytes # (Auto) 0.7 K/mm3 (0.0-0.8); Monocytes % (Auto) 5.2 % (0.0-7.3); Platelet Count 227 K/mm3 (140-440); Red Blood Count 3.61 M/mm3 (3.65-5.03); Red Cell Distribution Width 19.1 % (13.2-15.2)
[2018-05-09 06:09] LABS: Mean Corpuscular Volume 70 fl (84-94)
[2018-05-09] MEDS: AZACTAM/NS 1 GM/50 ML 1 GM/50 ML VIAL IV SCH (06:18)
[2018-05-09] MEDS: MAXIPIME/NS 1 GM/100 ML 1 GM/100 ML BAG IV SCH ×3 (06:18→21:30)
[2018-05-09 07:09] LABS: Alanine Aminotransferase 14 units/L (7-56); Albumin 1.4 g/dL (3.9-5); BUN/Creatinine Ratio 25; Blood Urea Nitrogen 30 mg/dL (9-20); Calcium 7.3 mg/dL (8.4-10.2); Hemolysis Index 1
[2018-05-09] MEDS: NACL 0.45% 1000 ML 1,000 ML IV SCH (09:31)
[2018-05-09] MEDS: SODIUM CHLORIDE FLUSH SYRINGE 10 ML IV SCH ×2 (09:40→21:31)
[2018-05-09] MEDS: FEOSOL PO SCH ×2 (10:00→21:24)
[2018-05-09] MEDS: CARAFATE PO SCH ×2 (10:00→21:24)
[2018-05-09] MEDS: PLAVIX PO SCH (10:00)
[2018-05-09] MEDS: PEPCID PO SCH (10:00)
--- NOTE | 2018-05-09 15:40 | Progress Note ---
Assessment and Plan Assessment/ Plan Suspected Acute cystitis with indwelling Martinez cath continue IV abx Urine culture - no growth so far Sepsis from cystitis continue IV abx Follow-up cultures Profound Anemia of chronic disease Monitor H/H closely continue Iron tabs Generalized weakness/ acute on chronic physical debility fall and aspiration precautions at all times Acute Delirium monitor mental status closely h/o CVA supportive care Aspiration Risk speech eval obesity supporitve care Full code status Further pt mgt per hospital course Disposition Plan: f/u ST, await culture results, PT eval Total Time Spent with Patient (Minutes): More than 50 mins spent Subjective Date of service: 05/09/18 Principal diagnosis: acute cystitis, sepsis, metabolic encephalopathy Interval history: Patient lying quietly in bed. Confused. Daughter by bedside. Remains afebrile. Objective - Exam Narrative Exam: Constitutional: Confused. In no distress Head: Normocephalic atraumatic Eyes: Pupils are equal round and reactive to light Nose: No enlarged turbinates, no septal deviation. Mouth: Moist mucous membranes. Neck: Supple no thyromegaly. No bruit. No JVD Heart: Regular rate and rhythm, S1-S2 normal. No rubs murmurs or gallop Lungs: Clear to auscultation bilaterally. no rales or rhonchi Abdomen: Soft, nontender. Bowel sound are present. Extremities: No edema, no cyanosis, no clubbing. Neuro: Alert oriented Oriented x3. No focal sensory or motor deficit. Skin: No rashes or hyperpigmented spots Musculoskeletal system: No joint pain or swelling Genitourinary system: Martinez's catheter in place. Draining clear urine. Hematological: No petechia or subcutanous hemorrhages. Immunological: No multiple septic spots on the skin Lymphatic: No generalized lymphadenopathy Psychiatry: Euthymic. Calm. - Constitutional Vitals: Vital Signs - 12hr 05/09/18 07:26 Temperature 98.2 F Pulse Rate 103 H Respiratory 20 Rate Blood Pressure 97/55 O2 Sat by Pulse 95 Oximetry - Labs CBC & Chem 7: 05/09/18 05:20 05/09/18 05:20 Labs: Abnormal lab results 05/09/18 05/09/18 05/09/18 Range/Units 01:00 05:20 05:20 WBC 13.6 H 14.0 H (4.5-11.0) K/mm3 RBC 3.64 L 3.61 L (3.65-5.03) M/mm3 Hgb 7.7 L 7.6 L (11.8-15.2) gm/dl Hct 25.1 L 25.2 L (35.5-45.6) % MCV 69 L 70 L (84-94) fl MCH 21 L 21 L (28-32) pg MCHC 31 L 30 L (32-34) % RDW 18.7 H 19.1 H (13.2-15.2) % Lymph % (Auto) 6.8 L (13.4-35.0) % Lymph # 0.9 L (1.2-5.4) K/mm3 Seg Neutrophils % 86.6 H (40.0-70.0) % Seg Neutrophils # 12.1 H (1.8-7.7) K/mm3 Sodium 153 H (137-145) mmol/L Chloride 120.0 H (98-107) mmol/L BUN 30 H (9-20) mg/dL Calcium 7.3 L (8.4-10.2) mg/dL Total Protein 5.1 L (6.3-8.2) g/dL Albumin 1.4 L (3.9-5) g/dL
[2018-05-09] MEDS: PRAVACHOL PO SCH (21:24)
[2018-05-10] MEDS: MAXIPIME/NS 1 GM/100 ML 1 GM/100 ML BAG IV SCH ×3 (06:08→21:54)
[2018-05-10] MEDS: NACL 0.45% 1000 ML 1,000 ML IV SCH (06:12)
--- NOTE | 2018-05-10 08:01 | Progress Note ---
Assessment and Plan Assessment/ Plan Suspected Acute cystitis with indwelling Martinez cath continue IV abx Urine culture - no growth so far Sepsis from cystitis continue IV abx Follow-up cultures Profound Anemia of chronic disease Monitor H/H closely continue Iron tabs Generalized weakness/ acute on chronic physical debility fall and aspiration precautions at all times Acute Delirium monitor mental status closely h/o CVA supportive care Aspiration Risk speech eval obesity supporitve care Full code status Discussed at length with family members in the room who have been reluctant in consenting to placement of a Dobbhof. Still want to further consult with other family members. Disposition Plan: f/u ST, await culture results, PT eval Total Time Spent with Patient (Minutes): More than 50 mins spent Subjective Date of service: 05/10/18 Principal diagnosis: acute cystitis, sepsis, metabolic encephalopathy Interval history: Patient lying quietly in bed. No obvious distress. Objective - Exam Narrative Exam: Constitutional: Confused. In no distress Head: Normocephalic atraumatic Eyes: Pupils are equal round and reactive to light Nose: No enlarged turbinates, no septal deviation. Mouth: Moist mucous membranes. Neck: Supple no thyromegaly. No bruit. No JVD Heart: Regular rate and rhythm, S1-S2 normal. No rubs murmurs or gallop Lungs: Clear to auscultation bilaterally. no rales or rhonchi Abdomen: Soft, nontender. Bowel sound are present. Extremities: No edema, no cyanosis, no clubbing. Neuro: Alert oriented Oriented x3. No focal sensory or motor deficit. Skin: No rashes or hyperpigmented spots Musculoskeletal system: No joint pain or swelling Genitourinary system: Martinez's catheter in place. Draining clear urine. Hematological: No petechia or subcutanous hemorrhages. Immunological: No multiple septic spots on the skin Lymphatic: No generalized lymphadenopathy Psychiatry: Euthymic. Calm. - Constitutional Vitals: Vital Signs - 12hr 05/09/18 05/09/18 05/09/18 20:28 20:34 20:35 Temperature Pulse Rate 122 H Blood Pressure 121/66 Blood Pressure [Left] O2 Sat by Pulse 96 99 Oximetry 05/09/18 05/10/18 22:00 02:40 Temperature 98.7 F Pulse Rate 120 H 100 H Blood Pressure Blood Pressure 100/68 [Left] O2 Sat by Pulse 99 Oximetry - Labs CBC & Chem 7: 05/10/18 09:34 05/10/18 09:34
[2018-05-10] MEDS: SODIUM CHLORIDE FLUSH SYRINGE 10 ML IV SCH ×2 (08:28→21:54)
[2018-05-10] MEDS: D5W 1,000 ML IV SCH ×2 (08:29→17:48)
[2018-05-10] MEDS: CARAFATE PO SCH ×2 (10:16→21:54)
[2018-05-10] MEDS: FEOSOL PO SCH ×2 (10:16→21:54)
[2018-05-10] MEDS: PLAVIX PO SCH (10:16)
[2018-05-10] MEDS: PEPCID PO SCH (10:16)
[2018-05-10 10:38] LABS: Basophils # (Auto) 0.1 K/mm3 (0.0-0.1); Basophils % (Auto) 0.7 % (0.0-1.8); Eosinophils # (Auto) 0.1 K/mm3 (0.0-0.4); Eosinophils % (Auto) 0.9 % (0.0-4.3); Hematocrit 28.6 % (35.5-45.6); Hemoglobin 8.6 gm/dl (11.8-15.2); Lymphocytes # (Auto) 0.9 K/mm3 (1.2-5.4); Lymphocytes % (Auto) 6.5 % (13.4-35.0); Mean Corpuscular HGB Conc 30 % (32-34); Monocytes # (Auto) 0.6 K/mm3 (0.0-0.8); Monocytes % (Auto) 4.6 % (0.0-7.3); Red Blood Count 4.12 M/mm3 (3.65-5.03); Red Cell Distribution Width 19.1 % (13.2-15.2)
[2018-05-10 10:39] LABS: Mean Corpuscular Volume 69 fl (84-94); Platelet Count 80 K/mm3 (140-440)
[2018-05-10 11:04] LABS: BUN/Creatinine Ratio 25; Blood Urea Nitrogen 28 mg/dL (9-20); Calcium 7.2 mg/dL (8.4-10.2); Hemolysis Index 58
[2018-05-10] MEDS ORDERED: PROVENTIL IH PRN (15:59)
[2018-05-10] MEDS: PRAVACHOL PO SCH (21:55)
[2018-05-11] MEDS: D5W 1,000 ML IV SCH (04:13)
[2018-05-11] MEDS: MAXIPIME/NS 1 GM/100 ML 1 GM/100 ML BAG IV SCH ×3 (05:14→21:50)
--- NOTE | 2018-05-11 09:18 | Progress Note ---
Assessment and Plan Assessment/ Plan Suspected Acute cystitis with indwelling Martinez cath continue IV abx Urine culture - no growth so far except for ronan which is likely colonization on atibiotic with cefepin Leukocytosis Will obtian ID consult Generalized weakness/ acute on chronic physical debility fall and aspiration precautions at all times Acute Delirium monitor mental status closely h/o CVA supportive care Aspiration Risk speech to re- eval obesity supportive care Full code status Discussed at length with family members in the room who later yesterday agreed to Dobbhof placed but now refused to have it placed as greenish material was aspirated from the nose. I advised that since he is an aspiration risk that it is still necessary for the Dobbhoff to be placed. The family member in the room declined Disposition Plan: f/u ST, F/u on culture results, PT eval Total Time Spent with Patient (Minutes): More than 35mins spent Subjective Date of service: 05/11/18 Principal diagnosis: acute cystitis, sepsis, metabolic encephalopathy Interval history: Patient lying quietly in bed. No obvious distress. Afebrile Objective - Exam Narrative Exam: Constitutional: Pleasantly confused. In no distress Head: Normocephalic atraumatic Eyes: Pupils are equal round and reactive to light Nose: No enlarged turbinates, no septal deviation. Mouth: Moist mucous membranes. Neck: Supple no thyromegaly. No bruit. No JVD Heart: Regular rate and rhythm, S1-S2 normal. No rubs murmurs or gallop Lungs: Clear to auscultation bilaterally. no rales or rhonchi Abdomen: Soft, nontender. Bowel sound are present. Extremities: No edema, no cyanosis, no clubbing. Neuro: Alert oriented Oriented x3. No focal sensory or motor deficit. Skin: No rashes or hyperpigmented spots Musculoskeletal system: No joint pain or swelling Genitourinary system: Martinez's catheter in place. Draining clear urine. Hematological: No petechia or subcutanous hemorrhages. Immunological: No multiple septic spots on the skin Lymphatic: No generalized lymphadenopathy Psychiatry: Euthymic. Calm. - Constitutional Vitals: Vital Signs - 12hr 05/10/18 05/11/18 05/11/18 22:00 01:19 08:00 Temperature 98.5 F Pulse Rate 110 H Respiratory 24 Rate Blood Pressure 96/61 [Left] O2 Sat by Pulse Oximetry 05/11/18 08:01 Temperature 98.6 F Pulse Rate 97 H Respiratory 18 Rate Blood Pressure 96/61 [Left] O2 Sat by Pulse 97 Oximetry - Labs CBC & Chem 7: 05/11/18 14:09 05/11/18 14:09 Labs: Abnormal lab results 05/10/18 05/10/18 05/10/18 Range/Units 09:34 09:34 12:40 WBC 13.9 H (4.5-11.0) K/mm3 Hgb 8.6 L (11.8-15.2) gm/dl Hct 28.6 L (35.5-45.6) % MCV 69 L (84-94) fl MCH 21 L (28-32) pg MCHC 30 L (32-34) % RDW 19.1 H (13.2-15.2) % Plt Count 80 L (140-440) K/mm3 Lymph % (Auto) 6.5 L (13.4-35.0) % Lymph # 0.9 L (1.2-5.4) K/mm3 Seg Neutrophils % 87.3 H (40.0-70.0) % Seg Neutrophils # 12.1 H (1.8-7.7) K/mm3 Sodium 152 H (137-145) mmol/L Chloride 119.1 H (98-107) mmol/L Carbon Dioxide 18 L (22-30) mmol/L BUN 28 H (9-20) mg/dL POC Glucose 131 H (70-105) Calcium 7.2 L (8.4-10.2) mg/dL 05/10/18 05/10/18 05/11/18 Range/Units 16:47 22:01 05:34 WBC (4.5-11.0) K/mm3 Hgb (11.8-15.2) gm/dl Hct (35.5-45.6) % MCV (84-94) fl MCH (28-32) pg MCHC (32-34) % RDW (13.2-15.2) % Plt Count (140-440) K/mm3 Lymph % (Auto) (13.4-35.0) % Lymph # (1.2-5.4) K/mm3 Seg Neutrophils % (40.0-70.0) % Seg Neutrophils # (1.8-7.7) K/mm3 Sodium (137-145) mmol/L Chloride (98-107) mmol/L Carbon Dioxide (22-30) mmol/L BUN (9-20) mg/dL POC Glucose 205 H 205 H 239 H (70-105) Calcium (8.4-10.2) mg/dL 05/11/18 Range/Units 07:29 WBC (4.5-11.0) K/mm3 Hgb (11.8-15.2) gm/dl Hct (35.5-45.6) % MCV (84-94) fl MCH (28-32) pg MCHC (32-34) % RDW (13.2-15.2) % Plt Count (140-440) K/mm3 Lymph % (Auto) (13.4-35.0) % Lymph # (1.2-5.4) K/mm3 Seg Neutrophils % (40.0-70.0) % Seg Neutrophils # (1.8-7.7) K/mm3 Sodium (137-145) mmol/L Chloride (98-107) mmol/L Carbon Dioxide (22-30) mmol/L BUN (9-20) mg/dL POC Glucose 243 H (70-105) Calcium (8.4-10.2) mg/dL
[2018-05-11] MEDS: CARAFATE PO SCH ×2 (09:20→22:00)
[2018-05-11] MEDS: FEOSOL PO SCH ×2 (09:20→22:01)
[2018-05-11] MEDS: PEPCID PO SCH (09:21)
[2018-05-11] MEDS: PLAVIX PO SCH (09:21)
[2018-05-11] MEDS: SODIUM CHLORIDE FLUSH SYRINGE 10 ML IV SCH ×2 (09:24→21:50)
[2018-05-11] MEDS: D5/0.45NS 1,000 ML IV SCH (14:20)
[2018-05-11 14:25] LABS: Hematocrit 23.6 % (35.5-45.6); Hemoglobin 7.4 gm/dl (11.8-15.2); Mean Corpuscular HGB Conc 31 % (32-34); Platelet Count 218 K/mm3 (140-440)
[2018-05-11 14:26] LABS: Mean Corpuscular Volume 68 fl (84-94)
[2018-05-11 14:37] LABS: Total Cells Counted 100
[2018-05-11 14:40] LABS: Anisocytosis 1+; Platelet Estimate Consistent w Auto
[2018-05-11 14:54] LABS: BUN/Creatinine Ratio 22; Blood Urea Nitrogen 22 mg/dL (9-20); Calcium 7.2 mg/dL (8.4-10.2); Hemolysis Index 17
--- NOTE | 2018-05-11 15:23 | Consultation ---
History of Present Illness - Reason for Consult Consult date: 05/11/18 leukocytosis Requesting physician: WILLIAM COLEMAN - History of Present Illness This patient is a 77-year-old male with a past medical history of CVA, Type 2 diabetes, GERD, Asthma, Hyperlipedemia, Right total knee replacement, taht presented in the ED on 05/07/18 with a chief complaint of fever and weakness. The patients daughter states that the patient had a durán catheter placed 04/25/2018 secondary to urinary retention. On admission WBC 13.4, Creatinine 1.0, Temperature 99, HR 1 09, BP 114/66, lactic acid 2.10, U/A was not consistent with a UTI, Urine culture grew Canidida Albicans, Blood Culture has no growth thus far. Chest CT shows chronic interstitial changes at the lung bases bibasilar infiltrates is thought less likely. Chronic right pleural thickening. Patient unable to provide history, acute encephalopathy. Medications and Allergies Allergies Allergy/AdvReac Type Severity Reaction Status Date / Time Penicillins Allergy Unknown Verified 04/11/18 16:00 Home Medications Medication Instructions Recorded Confirmed Last Taken Type Clopidogrel Bisulfate [Plavix] 75 mg PO DAILY #0 09/21/17 05/07/18 04/24/18 12:00 History Famotidine [Pepcid] 20 mg PO DAILY #0 09/21/17 05/07/18 04/24/18 History 20mg Simvastatin 40 mg PO HS 09/21/17 05/07/18 04/24/18 08:00 History 20 mg Sucralfate [Carafate] 1 gram PO BID #0 09/21/17 05/07/18 04/24/18 12:00 History 1 gm Ferrous Sulfate [Feosol 325 MG tab] 325 mg PO BID #60 tablet 05/04/18 05/07/18 Unknown Rx Active Meds: Active Medications Acetaminophen (Tylenol) 650 mg PO Q4H PRN PRN Reason: Pain MILD(1-3)/Fever >100.5/MACIAS Albuterol (Proventil) 2.5 mg IH Q4HRT PRN PRN Reason: Shortness Of Breath Clopidogrel Bisulfate (Plavix) 75 mg PO DAILY [facility] [place] Last Admin: 05/11/18 09:21 Dose: Not Given Documented by: Famotidine (Pepcid) 20 mg PO DAILY [facility] [place] Last Admin: 05/11/18 09:21 Dose: Not Given Documented by: Ferrous Sulfate (Feosol) 325 mg PO BID [facility] [place] Last Admin: 05/11/18 09:20 Dose: Not Given Documented by: Hydromorphone HCl (Dilaudid) 0.5 mg IV Q3H PRN PRN Reason: Pain , Severe (7-10) Cefepime HCl (Maxipime/Ns 1 Gm/100 Ml) 1 gm in 100 mls @ 200 mls/hr IV Q8HR [facility] [place]; Protocol Last Admin: 05/11/18 13:17 Dose: 200 mls/hr Documented by: Dextrose/Sodium Chloride (D5/0.45ns) 1,000 mls @ 75 mls/hr IV DIRECT [facility] [place] Last Admin: 05/11/18 14:20 Dose: 75 mls/hr Documented by: Ondansetron HCl (Zofran) 4 mg IV Q8H PRN PRN Reason: Nausea And Vomiting Oxycodone/Acetaminophen (Percocet 5/325) 1 tab PO Q6H PRN PRN Reason: Pain, Moderate (4-6) Pravastatin Sodium (Pravachol) 80 mg PO QHS [facility] [place] Last Admin: 05/10/18 21:55 Dose: Not Given Documented by: Sodium Chloride (Sodium Chloride Flush Syringe 10 Ml) 10 ml IV BID [facility] [place] Last Admin: 05/11/18 09:24 Dose: 10 ml Documented by: Sodium Chloride (Sodium Chloride Flush Syringe 10 Ml) 10 ml IV PRN PRN PRN Reason: LINE FLUSH Last Admin: 05/08/18 03:56 Dose: 10 ml Documented by: Sucralfate (Carafate) 1 gm PO BID [facility] [place] Last Admin: 05/11/18 09:20 Dose: Not Given Documented by: Review of Systems ROS unobtainable: due to mental status Physical Examination - Physical Exam Narrative exam: Constitutional: Asleep, easily arousable.. No acute distress, + mild aphasia Head, Ears, Nose: Normocephalic, atraumatic. External ears, nose normal Eyes: Conjunctivae/corneas clear. No icterus. No ptosis. Neck: Supple, no meningeal signs Oral: dentition poor. no thrush Cardiovascular: S1, S2 normal. Respiratory: Good air entry, scattered rhonchi throughout GI: Soft, non-tender; bowel sounds normal. No peritoneal signs Musculoskeletal: No pedal edema, no cyanosis., + right hemiparesis Skin: No rash or abscess. Hem/Lymphatic: No palpable cervical or supraclavicular nodes. No lymphangitis Psych: Mood ok. Affect flat Neurological: Awake, alert, no oriented to time or place - Constitutional Vitals: Vital Signs Temp Pulse Resp BP Pulse Ox 97.8 F 74 18 150/75 96 05/11/18 13:41 05/11/18 13:41 05/11/18 13:41 05/11/18 13:41 05/11/18 13:41 Temperature -Last 24 Hours Temperature 97.8 F Temperature 98.4 F Temperature 98.6 F Temperature 98.5 F Temperature 98.4 F Results - Labs CBC & Chem 7: 05/11/18 14:09 05/11/18 14:09 Labs: Abnormal lab results 05/10/18 05/10/18 05/10/18 Range/Units 12:40 16:47 22:01 WBC (4.5-11.0) K/mm3 RBC (3.65-5.03) M/mm3 Hgb (11.8-15.2) gm/dl Hct (35.5-45.6) % MCV (84-94) fl MCH (28-32) pg MCHC (32-34) % RDW (13.2-15.2) % Lymphocytes % (Manual) (13.4-35.0) % Lymphocytes # (Manual) (1.2-5.4) K/mm3 Chloride (98-107) mmol/L Carbon Dioxide (22-30) mmol/L BUN (9-20) mg/dL Glucose (75-100) mg/dL POC Glucose 131 H 205 H 205 H (70-105) Calcium (8.4-10.2) mg/dL 05/11/18 05/11/18 05/11/18 Range/Units 05:34 07:29 11:15 WBC (4.5-11.0) K/mm3 RBC (3.65-5.03) M/mm3 Hgb (11.8-15.2) gm/dl Hct (35.5-45.6) % MCV (84-94) fl MCH (28-32) pg MCHC (32-34) % RDW (13.2-15.2) % Lymphocytes % (Manual) (13.4-35.0) % Lymphocytes # (Manual) (1.2-5.4) K/mm3 Chloride (98-107) mmol/L Carbon Dioxide (22-30) mmol/L BUN (9-20) mg/dL Glucose (75-100) mg/dL POC Glucose 239 H 243 H 179 H (70-105) Calcium (8.4-10.2) mg/dL 05/11/18 05/11/18 Range/Units 14:09 14:09 WBC 12.2 H (4.5-11.0) K/mm3 RBC 3.50 L (3.65-5.03) M/mm3 Hgb 7.4 L (11.8-15.2) gm/dl Hct 23.6 L (35.5-45.6) % MCV 68 L (84-94) fl MCH 21 L (28-32) pg MCHC 31 L (32-34) % RDW 19.0 H (13.2-15.2) % Lymphocytes % (Manual) 45.0 H (13.4-35.0) % Lymphocytes # (Manual) 5.5 H (1.2-5.4) K/mm3 Chloride 114.1 H (98-107) mmol/L Carbon Dioxide 20 L (22-30) mmol/L BUN 22 H (9-20) mg/dL Glucose 150 H (75-100) mg/dL POC Glucose (70-105) Calcium 7.2 L (8.4-10.2) mg/dL - Imaging and Cardiology Chest x-ray: report reviewed (Chronic interstitial changes at the lung bases. Bibasilar infiltrates is thought less likely.) Assessment and Plan Cultures: 05/07/18 Blood: no growth thus far 05/08/18: Urine Jennifer Albicans A/P: 78-year-old male past medical history of CVA, Type 2 diabetes, GERD, Asthma, Hyperlipedemia, Right total knee replacement, now admitted with : 1. SiRS vs Sepsis on admisson, evidenced by leukocytois, tachycardia and elevated lactic acid, etiology unclear. U/A is negative for a UTI, Urine culture is positive for Jennifer Albicans, Blood cultures show no growth thus far, no temperature, Chest xray shows no infilitrates. Currently being treated with Cefepime. 2, Urinary Tract Infection: less likely, U/A is not consistent with a UTI, Urine culture is positive for Canidida Albicans, however this may be reflective of colonization, Indwelling Durán catheter placed 04/25/18 for urinary r etention. 3. Acute encephalopathy: family states some confusion at home, currently not a baseline. 4. Penicillin Allergy: anaphylactic reaction per family. Currently tolerating cephalosporin, continue to monitor closely. Plan: -f/u blood culture -continue Cefepime for now -influenza rapid ordered -CBC ordered for tomorrow [facility] M: [phone] O:[phone]
--- NOTE | 2018-05-11 17:56 | Gastroenterology Consultation ---
History of Present Illness - Reason for Consult Consult date: 05/11/18 dysphagia, PEG tube placement Requesting physician: WILLIAM COLEMAN - History of Present Illness This is an 78 yo AAM with pmh of CVA with residual weakness and on plavix, HTN, and DM and recent admission for UTI and discharged with dwelling durán catheter admitted initially for symptoms of weakness, fever, and confusion. Patient has been undergoing work up for sepsis with unclear source. Continues to be somewhat lethargic and confused. Speech has evaluated him and kept him NPO due to risk of aspiration. GI consulted for PEG placement. Family states that patient was eating pureed diet from last admission and was alert and himself. However, during admission, he is more lethargic, which has been improving. No abdominal pain, nausea/vomiting or diarrhea. Past History Past Medical History: diabetes, hypertension, stroke Past Surgical History: total knee replacement Social history: lives with family, smoking Medications and Allergies Allergies Allergy/AdvReac Type Severity Reaction Status Date / Time Penicillins Allergy Unknown Verified 04/11/18 16:00 Home Medications Medication Instructions Recorded Confirmed Last Taken Type Clopidogrel Bisulfate [Plavix] 75 mg PO DAILY #0 09/21/17 05/07/18 04/24/18 12:00 History Famotidine [Pepcid] 20 mg PO DAILY #0 09/21/17 05/07/18 04/24/18 History 20mg Simvastatin 40 mg PO HS 09/21/17 05/07/18 04/24/18 08:00 History 20 mg Sucralfate [Carafate] 1 gram PO BID #0 09/21/17 05/07/18 04/24/18 12:00 History 1 gm Ferrous Sulfate [Feosol 325 MG tab] 325 mg PO BID #60 tablet 05/04/18 05/07/18 Unknown Rx Active Meds: Active Medications Acetaminophen (Tylenol) 650 mg PO Q4H PRN PRN Reason: Pain MILD(1-3)/Fever >100.5/MACIAS Albuterol (Proventil) 2.5 mg IH Q4HRT PRN PRN Reason: Shortness Of Breath Clopidogrel Bisulfate (Plavix) 75 mg PO DAILY [facility] Last Admin: 05/11/18 09:21 Dose: Not Given Documented by: Famotidine (Pepcid) 20 mg PO DAILY [facility] Last Admin: 05/11/18 09:21 Dose: Not Given Documented by: Ferrous Sulfate (Feosol) 325 mg PO BID [facility] Last Admin: 05/11/18 09:20 Dose: Not Given Documented by: Hydromorphone HCl (Dilaudid) 0.5 mg IV Q3H PRN PRN Reason: Pain , Severe (7-10) Cefepime HCl (Maxipime/Ns 1 Gm/100 Ml) 1 gm in 100 mls @ 200 mls/hr IV Q8HR [facility]; Protocol Last Admin: 05/11/18 13:17 Dose: 200 mls/hr Documented by: Dextrose/Sodium Chloride (D5/0.45ns) 1,000 mls @ 75 mls/hr IV DIRECT [facility] Last Admin: 05/11/18 14:20 Dose: 75 mls/hr Documented by: Ondansetron HCl (Zofran) 4 mg IV Q8H PRN PRN Reason: Nausea And Vomiting Oxycodone/Acetaminophen (Percocet 5/325) 1 tab PO Q6H PRN PRN Reason: Pain, Moderate (4-6) Pravastatin Sodium (Pravachol) 80 mg PO QHS [facility] Last Admin: 05/10/18 21:55 Dose: Not Given Documented by: Sodium Chloride (Sodium Chloride Flush Syringe 10 Ml) 10 ml IV BID [facility] Last Admin: 05/11/18 09:24 Dose: 10 ml Documented by: Sodium Chloride (Sodium Chloride Flush Syringe 10 Ml) 10 ml IV PRN PRN PRN Reason: LINE FLUSH Last Admin: 05/08/18 03:56 Dose: 10 ml Documented by: Sucralfate (Carafate) 1 gm PO BID [facility] Last Admin: 05/11/18 09:20 Dose: Not Given Documented by: Review of Systems - Review of Systems ROS unobtainable: due to mental status Exam - Constitutional Vital Signs: Temp Pulse Resp BP Pulse Ox 97.8 F 74 18 150/75 96 05/11/18 13:41 05/11/18 13:41 05/11/18 13:41 05/11/18 13:41 05/11/18 13:41 General appearance: no acute distress, obese - EENT Eyes: EOM intact ENT: clear oral mucosa - Neck Neck: supple, no masses or JVD - Respiratory Respiratory effort: normal Respiratory: bilateral: CTA - Breasts Breasts: deferred - Cardiovascular Rhythm: regular Heart Sounds: Present: S1 & S2. Absent: gallop, rub Extremities: pulses intact, No edema, normal color, Full ROM - Integumentary Integumentary: Present: clear, warm, dry - Neurologic Neurological: disoriented, other (Lethargic) - Psychiatric Psychiatric: appropriate mood/affect, intact judgment & insight, memory intact - Labs CBC & Chem 7: 05/11/18 14:09 05/11/18 14:09 Lab Results: Laboratory Results - last 24 hr 05/10/18 05/11/18 05/11/18 22:01 05:34 07:29 WBC RBC Hgb Hct MCV MCH MCHC RDW Plt Count Add Manual Diff Total Counted Seg Neuts % (Manual) Band Neutrophils % Lymphocytes % (Manual) Reactive Lymphs % (Man) Monocytes % (Manual) Eosinophils % (Manual) Basophils % (Manual) Metamyelocytes % Myelocytes % Promyelocytes % Blast Cells % Nucleated RBC % Seg Neutrophils # Man Band Neutrophils # Lymphocytes # (Manual) Abs React Lymphs (Man) Monocytes # (Manual) Eosinophils # (Manual) Basophils # (Manual) Metamyelocytes # Myelocytes # Promyelocytes # Blast Cells # WBC Morphology Hypersegmented Neuts Hyposegmented Neuts Hypogranular Neuts Smudge Cells Toxic Granulation Toxic Vacuolation Dohle Bodies Pelger-Huet Anomaly Alba Rods Platelet Estimate Clumped Platelets Plt Clumps, EDTA Large Platelets Giant Platelets Platelet Satelliting Plt Morphology Comment RBC Morphology Dimorphic RBCs Polychromasia Hypochromasia Poikilocytosis Anisocytosis Microcytosis Macrocytosis Spherocytes Pappenheimer Bodies Sickle Cells Target Cells Tear Drop Cells Ovalocytes Helmet Cells Mccoy-I[place] Bodies [place] Rings Jazmin Cells Bite Cells Crenated Cell Elliptocytes Acanthocytes (Spur) Rouleaux Hemoglobin C Crystals Schistocytes Malaria parasites James Bodies Hem Pathologist Commnt Sodium Potassium Chloride Carbon Dioxide Anion Gap BUN Creatinine Estimated GFR BUN/Creatinine Ratio Glucose POC Glucose 205 H 239 H 243 H Calcium 05/11/18 05/11/18 05/11/18 11:15 14:09 14:09 WBC 12.2 H RBC 3.50 L Hgb 7.4 L Hct 23.6 L MCV 68 L MCH 21 L MCHC 31 L RDW 19.0 H Plt Count 218 D Add Manual Diff Complete Total Counted 100 Seg Neuts % (Manual) 49.0 Band Neutrophils % 0 Lymphocytes % (Manual) 45.0 H Reactive Lymphs % (Man) 0 Monocytes % (Manual) 4.0 Eosinophils % (Manual) 1.0 Basophils % (Manual) 1.0 Metamyelocytes % 0 Myelocytes % 0 Promyelocytes % 0 Blast Cells % 0 Nucleated RBC % Not Reportable Seg Neutrophils # Man 6.0 Band Neutrophils # 0.0 Lymphocytes # (Manual) 5.5 H Abs React Lymphs (Man) 0.0 Monocytes # (Manual) 0.5 Eosinophils # (Manual) 0.1 Basophils # (Manual) 0.1 Metamyelocytes # 0.0 Myelocytes # 0.0 Promyelocytes # 0.0 Blast Cells # 0.0 WBC Morphology Not Reportable Hypersegmented Neuts Not Reportable Hyposegmented Neuts Not Reportable Hypogranular Neuts Not Reportable Smudge Cells Not Reportable Toxic Granulation Not Reportable Toxic Vacuolation Not Reportable Dohle Bodies Not Reportable Pelger-Huet Anomaly Not Reportable Alba Rods Not Reportable Platelet Estimate Consistent w auto Clumped Platelets Not Reportable Plt Clumps, EDTA Not Reportable Large Platelets Not Reportable Giant Platelets Not Reportable Platelet Satelliting Not Reportable Plt Morphology Comment Not Reportable RBC Morphology Not Reportable Dimorphic RBCs Not Reportable Polychromasia Few Hypochromasia Not Reportable Poikilocytosis Not Reportable Anisocytosis 1+ Microcytosis Not Reportable Macrocytosis Not Reportable Spherocytes Not Reportable Pappenheimer Bodies Not Reportable Sickle Cells Not Reportable Target Cells Not Reportable Tear Drop Cells Not Reportable Ovalocytes Not Reportable Helmet Cells Not Reportable Mccoy-Iuka Bodies Not Reportable [place] Rings Not Reportable [place] Cells Not Reportable Bite Cells Not Reportable Crenated Cell Not Reportable Elliptocytes Not Reportable Acanthocytes (Spur) Not Reportable Rouleaux Not Reportable Hemoglobin C Crystals Not Reportable Schistocytes Not Reportable Malaria parasites Not Reportable James Bodies Not Reportable Hem Pathologist Commnt No Sodium 144 D Potassium 3.6 Chloride 114.1 H Carbon Dioxide 20 L Anion Gap 14 BUN 22 H Creatinine 1.0 Estimated GFR > 60 BUN/Creatinine Ratio 22 Glucose 150 H POC Glucose 179 H Calcium 7.2 L 05/11/18 16:17 WBC RBC Hgb Hct MCV MCH MCHC RDW Plt Count Add Manual Diff Total Counted Seg Neuts % (Manual) Band Neutrophils % Lymphocytes % (Manual) Reactive Lymphs % (Man) Monocytes % (Manual) Eosinophils % (Manual) Basophils % (Manual) Metamyelocytes % Myelocytes % Promyelocytes % Blast Cells % Nucleated RBC % Seg Neutrophils # Man Band Neutrophils # Lymphocytes # (Manual) Abs React Lymphs (Man) Monocytes # (Manual) Eosinophils # (Manual) Basophils # (Manual) Metamyelocytes # Myelocytes # Promyelocytes # Blast Cells # WBC Morphology Hypersegmented Neuts Hyposegmented Neuts Hypogranular Neuts Smudge Cells Toxic Granulation Toxic Vacuolation Dohle Bodies Pelger-Huet Anomaly Alba Rods Platelet Estimate Clumped Platelets Plt Clumps, EDTA Large Platelets Giant Platelets Platelet Satelliting Plt Morphology Comment RBC Morphology Dimorphic RBCs Polychromasia Hypochromasia Poikilocytosis Anisocytosis Microcytosis Macrocytosis Spherocytes Pappenheimer Bodies Sickle Cells Target Cells Tear Drop Cells Ovalocytes Helmet Cells Mccoy-Iuka Bodies [place] Rings [place] Cells Bite Cells Crenated Cell Elliptocytes Acanthocytes (Spur) Rouleaux Hemoglobin C Crystals Schistocytes Malaria parasites James Bodies Hem Pathologist Commnt Sodium Potassium Chloride Carbon Dioxide Anion Gap BUN Creatinine Estimated GFR BUN/Creatinine Ratio Glucose POC Glucose 173 H Calcium Assessment and Plan This is an 78 yo AAM with pmh of CVA with residual weakness and on plavix, HTN, and DM and recent admission for UTI and discharged with dwelling durán catheter admitted initially for symptoms of weakness, fever, and confusion. Patient has been undergoing work up for sepsis with unclear source. Continues to be somewhat lethargic and confused. Speech has evaluated him and kept him NPO due to risk of aspiration. GI consulted for PEG placement. - Patient Problems (1) Dysphagia Current Visit: Yes Status: Acute Qualifiers: Dysphagia type: oropharyngeal phase Qualified Code(s): R13.12 - Dysphagia, oropharyngeal phase Plan to address problem: Oropharyngeal dysphagia: likely 2/2 mental status in the setting of sepsis and metabolic encephalopathy. - failed speech evaluation for swallow - discussed PEG tube placement with the patient's family including the nature of the procedure and complications including but not limited to bleeding, infection, aspiration, and perforation. Patient wanted to proceed with the procedure. - confirmed with pharmacy that patient's last dose of plavix was on 05/08/2018. Will need at least 5 days off plavix prior to the EGD/PEG procedure. - recommend other needs of nutrition in the meantime and continued evaluation with speech. - consider head imaging given his AMS. management for primary team.
[2018-05-11] MEDS: PRAVACHOL PO SCH (22:01)
[2018-05-12] MEDS: D5/0.45NS 1,000 ML IV SCH ×2 (04:14→19:43)
[2018-05-12] MEDS: MAXIPIME/NS 1 GM/100 ML 1 GM/100 ML BAG IV SCH ×2 (05:33→13:24)
--- NOTE | 2018-05-12 08:18 | Progress Note ---
Assessment and Plan Cultures: 05/07/18 Blood: no growth thus far 05/08/18: Urine Jennifer Albicans A/P: 78-year-old male past medical history of CVA, Type 2 diabetes, GERD, Asthma, Hyperlipedemia, Right total knee replacement, now admitted with : 1. SIRS vs Sepsis on admisson, Resolved, evidenced by leukocytois, tachycardia and elevated lactic acid, etiology unclear. U/A is negative for a UTI, Urine culture is positive for Jennifer Albicans, Blood cultures show no growth thus far, no temperature, Chest xray shows no infilitrates. Influenza screen negative. Currently being treated with Cefepime for 7 days. 2, Urinary Tract Infection: less likely, U/A is not consistent with a UTI, Urine culture is positive for Canidida Albicans, however this may be reflective of colonization, Indwelling Martinez catheter placed 04/25/18 for urinary retention. 3. Acute encephalopathy: family states some confusion at home, currently not a b aseline. 4. Penicillin Allergy: anaphylactic reaction per family. Currently tolerating cephalosporin, continue to monitor closely. Plan: -f/u blood cultures -continue Cefepime, D5 of D7 -CBC ordered for tomorrow [facility] M: [phone] O:[phone] Subjective Date of service: 05/12/18 Principal diagnosis: acute cystitis, sepsis, metabolic encephalopathy Interval history: Patient seen and examined. Somnolent, not able arouse. and daughter at bedside. Nurses notes, labs, reports reviewed, discussed with family. Objective - Exam Narrative Exam: Constitutional:somnolent, difficult to arouse. no acute distress observed Head, Ears, Nose: Normocephalic, atraumatic. External ears, nose normal Eyes: unable to assess Neck: Supple, no meningeal signs Oral: dentition poor. no thrush Cardiovascular: S1, S2 normal. Respiratory: Good air entry, scattered rhonchi throughout GI: Soft, non-tender; bowel sounds normal. No peritoneal signs Musculoskeletal: No pedal edema, no cyanosis., + right hemiparesis Skin: No rash or abscess. Hem/Lymphatic: No palpable cervical or supraclavicular nodes. No lymphangitis Psych: somnolent Neurological: somnolent - Constitutional Vitals: Vital Signs Temp Pulse Resp BP Pulse Ox 97.9 F 91 H 20 111/59 95 05/12/18 08:03 05/12/18 08:03 05/12/18 08:03 05/12/18 08:03 05/12/18 08:03 Temperature -Last 24 Hours Temperature 97.9 F Temperature 97.4 F Temperature 98.2 F Temperature 98.2 F Temperature 97.8 F Temperature 98.4 F - Labs CBC & Chem 7: 05/12/18 08:41 05/12/18 08:41 Labs: Abnormal lab results 05/11/18 05/11/18 05/11/18 Range/Units 11:15 14:09 14:09 WBC 12.2 H (4.5-11.0) K/mm3 RBC 3.50 L (3.65-5.03) M/mm3 Hgb 7.4 L (11.8-15.2) gm/dl Hct 23.6 L (35.5-45.6) % MCV 68 L (84-94) fl MCH 21 L (28-32) pg MCHC 31 L (32-34) % RDW 19.0 H (13.2-15.2) % Lymphocytes % (Manual) 45.0 H (13.4-35.0) % Lymphocytes # (Manual) 5.5 H (1.2-5.4) K/mm3 Chloride 114.1 H (98-107) mmol/L Carbon Dioxide 20 L (22-30) mmol/L BUN 22 H (9-20) mg/dL Glucose 150 H (75-100) mg/dL POC Glucose 179 H (70-105) Calcium 7.2 L (8.4-10.2) mg/dL 05/11/18 05/11/18 05/12/18 Range/Units 16:17 21:04 07:24 WBC (4.5-11.0) K/mm3 RBC (3.65-5.03) M/mm3 Hgb (11.8-15.2) gm/dl Hct (35.5-45.6) % MCV (84-94) fl MCH (28-32) pg MCHC (32-34) % RDW (13.2-15.2) % Lymphocytes % (Manual) (13.4-35.0) % Lymphocytes # (Manual) (1.2-5.4) K/mm3 Chloride (98-107) mmol/L Carbon Dioxide (22-30) mmol/L BUN (9-20) mg/dL Glucose (75-100) mg/dL POC Glucose 173 H 174 H 198 H (70-105) Calcium (8.4-10.2) mg/dL
[2018-05-12 09:06] LABS: Basophils % (Auto) 0.4 % (0.0-1.8); Eosinophils # (Auto) 0.1 K/mm3 (0.0-0.4); Hematocrit 25.1 % (35.5-45.6); Hemoglobin 7.6 gm/dl (11.8-15.2); Lymphocytes # (Auto) 0.8 K/mm3 (1.2-5.4); Lymphocytes % (Auto) 7.9 % (13.4-35.0); Mean Corpuscular HGB Conc 30 % (32-34); Monocytes # (Auto) 0.5 K/mm3 (0.0-0.8); Monocytes % (Auto) 4.3 % (0.0-7.3); Platelet Count 221 K/mm3 (140-440); Red Blood Count 3.65 M/mm3 (3.65-5.03); Red Cell Distribution Width 19.1 % (13.2-15.2)
[2018-05-12 09:11] LABS: Mean Corpuscular Volume 69 fl (84-94)
[2018-05-12] MEDS: CARAFATE PO SCH ×2 (09:14→22:05)
[2018-05-12] MEDS: PEPCID PO SCH (09:15)
[2018-05-12] MEDS: SODIUM CHLORIDE FLUSH SYRINGE 10 ML IV SCH ×2 (09:15→22:04)
[2018-05-12] MEDS: PLAVIX PO SCH (09:15)
[2018-05-12] MEDS: FEOSOL PO SCH ×2 (09:15→22:05)
[2018-05-12 09:17] LABS: Alanine Aminotransferase 7 units/L (7-56); Albumin 1.3 g/dL (3.9-5); BUN/Creatinine Ratio 22; Blood Urea Nitrogen 22 mg/dL (9-20); Calcium 7.4 mg/dL (8.4-10.2); Hemolysis Index 0
--- NOTE | 2018-05-12 13:26 | Gastroenterology Progress Note ---
Addendum entered and electronically signed by JODIE JOHNSON MD 05/12/18 16:50: Patient seen and examined on 05/12/2018. Patient continues to be lethargic mostly with brief periods of alertness. - will tentatively plan for EGD/PEG on 05/14, 5 days off plavix. Original Note: Assessment and Plan This is an 78 yo AAM with pmh of CVA with residual weakness and on plavix, HTN, and DM and recent admission for UTI and discharged with dwelling durán catheter admitted initially for symptoms of weakness, fever, and confusion. Patient has been undergoing work up for sepsis with unclear source. Continues to be somewhat lethargic and confused. Speech has evaluated him and kept him NPO due to risk of aspiration. GI consulted for PEG placement. - Patient Problems (1) Dysphagia Current Visit: Yes Status: Acute Qualifiers: Dysphagia type: oropharyngeal phase Qualified Code(s): R13.12 - Dysphagia, oropharyngeal phase Plan to address problem: Oropharyngeal dysphagia: likely 2/2 mental status in the setting of sepsis and metabolic encephalopathy. - failed speech evaluation for swallow - discussed PEG tube placement with the patient's family including the nature of the procedure and complications including but not limited to bleeding, infection, aspiration, and perforation. Patient wanted to proceed with the procedure. - confirmed with pharmacy that patient's last dose of plavix was on 05/08/2018. Will need at least 5 days off plavix prior to the EGD/PEG procedure. - recommend other needs of nutrition in the meantime and continued evaluation . - will tentatively schedule EGD/PEG on 05/14 Subjective Date of service: 05/12/18 Principal diagnosis: PEG Interval history: No acute distress. Objective - Constitutional Vitals: Temp Pulse Resp BP Pulse Ox 97.9 F 98 H 20 111/59 95 05/12/18 08:03 05/12/18 10:00 05/12/18 10:00 05/12/18 08:03 05/12/18 10:00 General appearance: no acute distress, other (lethargic) - Respiratory Respiratory effort: labored (slightly) Respiratory: bilateral: diminished - Cardiovascular Rhythm: regular Heart Sounds: Present: S1 & S2 - Gastrointestinal General gastrointestinal: Present: soft, non-distended, normal bowel sounds - Labs CBC & Chem 7: 05/12/18 08:41 02/19/19 08:41 Labs: Laboratory Results - last 24 hr 05/11/18 05/11/18 05/11/18 14:09 14:09 16:17 WBC 12.2 H RBC 3.50 L Hgb 7.4 L Hct 23.6 L MCV 68 L MCH 21 L MCHC 31 L RDW 19.0 H Plt Count 218 D Lymph % (Auto) Centre % (Auto) Eos % (Auto) Baso % (Auto) Lymph # Centre # Eos # Baso # Add Manual Diff Complete Total Counted 100 Seg Neutrophils % Seg Neuts % (Manual) 49.0 Band Neutrophils % 0 Lymphocytes % (Manual) 45.0 H Reactive Lymphs % (Man) 0 Monocytes % (Manual) 4.0 Eosinophils % (Manual) 1.0 Basophils % (Manual) 1.0 Metamyelocytes % 0 Myelocytes % 0 Promyelocytes % 0 Blast Cells % 0 Nucleated RBC % Not Reportable Seg Neutrophils # Seg Neutrophils # Man 6.0 Band Neutrophils # 0.0 Lymphocytes # (Manual) 5.5 H Abs React Lymphs (Man) 0.0 Monocytes # (Manual) 0.5 Eosinophils # (Manual) 0.1 Basophils # (Manual) 0.1 Metamyelocytes # 0.0 Myelocytes # 0.0 Promyelocytes # 0.0 Blast Cells # 0.0 WBC Morphology Not Reportable Hypersegmented Neuts Not Reportable Hyposegmented Neuts Not Reportable Hypogranular Neuts Not Reportable Smudge Cells Not Reportable Toxic Granulation Not Reportable Toxic Vacuolation Not Reportable Dohle Bodies Not Reportable Pelger-Huet Anomaly Not Reportable Alba Rods Not Reportable Platelet Estimate Consistent w auto Clumped Platelets Not Reportable Plt Clumps, EDTA Not Reportable Large Platelets Not Reportable Giant Platelets Not Reportable Platelet Satelliting Not Reportable Plt Morphology Comment Not Reportable RBC Morphology Not Reportable Dimorphic RBCs Not Reportable Polychromasia Few Hypochromasia Not Reportable Poikilocytosis Not Reportable Anisocytosis 1+ Microcytosis Not Reportable Macrocytosis Not Reportable Spherocytes Not Reportable Pappenheimer Bodies Not Reportable Sickle Cells Not Reportable Target Cells Not Reportable Tear Drop Cells Not Reportable Ovalocytes Not Reportable Helmet Cells Not Reportable Mccoy-[place] Bodies Not Reportable [place] Rings Not Reportable Jazmin Cells Not Reportable Bite Cells Not Reportable Crenated Cell Not Reportable Elliptocytes Not Reportable Acanthocytes (Spur) Not Reportable Rouleaux Not Reportable Hemoglobin C Crystals Not Reportable Schistocytes Not Reportable Malaria parasites Not Reportable James Bodies Not Reportable Hem Pathologist Commnt No Sodium 144 D Potassium 3.6 Chloride 114.1 H Carbon Dioxide 20 L Anion Gap 14 BUN 22 H Creatinine 1.0 Estimated GFR > 60 BUN/Creatinine Ratio 22 Glucose 150 H POC Glucose 173 H Calcium 7.2 L Magnesium Total Bilirubin AST ALT Alkaline Phosphatase Total Protein Albumin Albumin/Globulin Ratio Influenza A (Rapid) Influenza A (RT-PCR) Influenza B (Rapid) Influenza B (RT-PCR) 05/11/18 05/12/18 05/12/18 21:04 07:24 08:41 WBC 10.5 RBC 3.65 Hgb 7.6 L Hct 25.1 L MCV 69 L MCH 21 L MCHC 30 L RDW 19.1 H Plt Count 221 Lymph % (Auto) 7.9 L Centre % (Auto) 4.3 Eos % (Auto) 1.0 Baso % (Auto) 0.4 Lymph # 0.8 L Centre # 0.5 Eos # 0.1 Baso # 0.0 Add Manual Diff Total Counted Seg Neutrophils % 86.4 H Seg Neuts % (Manual) Band Neutrophils % Lymphocytes % (Manual) Reactive Lymphs % (Man) Monocytes % (Manual) Eosinophils % (Manual) Basophils % (Manual) Metamyelocytes % Myelocytes % Promyelocytes % Blast Cells % Nucleated RBC % Seg Neutrophils # 9.0 H Seg Neutrophils # Man Band Neutrophils # Lymphocytes # (Manual) Abs React Lymphs (Man) Monocytes # (Manual) Eosinophils # (Manual) Basophils # (Manual) Metamyelocytes # Myelocytes # Promyelocytes # Blast Cells # WBC Morphology Hypersegmented Neuts Hyposegmented Neuts Hypogranular Neuts Smudge Cells Toxic Granulation Toxic Vacuolation Dohle Bodies Pelger-Huet Anomaly Alba Rods Platelet Estimate Clumped Platelets Plt Clumps, EDTA Large Platelets Giant Platelets Platelet Satelliting Plt Morphology Comment RBC Morphology Dimorphic RBCs Polychromasia Hypochromasia Poikilocytosis Anisocytosis Microcytosis Macrocytosis Spherocytes Pappenheimer Bodies Sickle Cells Target Cells Tear Drop Cells Ovalocytes Helmet Cells Mccoy-[place] Bodies [place] Rings Jazmin Cells Bite Cells Crenated Cell Elliptocytes Acanthocytes (Spur) Rouleaux Hemoglobin C Crystals Schistocytes Malaria parasites James Bodies Hem Pathologist Commnt Sodium Potassium Chloride Carbon Dioxide Anion Gap BUN Creatinine Estimated GFR BUN/Creatinine Ratio Glucose POC Glucose 174 H 198 H Calcium Magnesium Total Bilirubin AST ALT Alkaline Phosphatase Total Protein Albumin Albumin/Globulin Ratio Influenza A (Rapid) Influenza A (RT-PCR) Influenza B (Rapid) Influenza B (RT-PCR) 05/12/18 05/12/18 05/12/18 08:41 11:26 Unknown WBC RBC Hgb Hct MCV MCH MCHC RDW Plt Count Lymph % (Auto) Centre % (Auto) Eos % (Auto) Baso % (Auto) Lymph # Centre # Eos # Baso # Add Manual Diff Total Counted Seg Neutrophils % Seg Neuts % (Manual) Band Neutrophils % Lymphocytes % (Manual) Reactive Lymphs % (Man) Monocytes % (Manual) Eosinophils % (Manual) Basophils % (Manual) Metamyelocytes % Myelocytes % Promyelocytes % Blast Cells % Nucleated RBC % Seg Neutrophils # Seg Neutrophils # Man Band Neutrophils # Lymphocytes # (Manual) Abs React Lymphs (Man) Monocytes # (Manual) Eosinophils # (Manual) Basophils # (Manual) Metamyelocytes # Myelocytes # Promyelocytes # Blast Cells # WBC Morphology Hypersegmented Neuts Hyposegmented Neuts Hypogranular Neuts Smudge Cells Toxic Granulation Toxic Vacuolation Dohle Bodies Pelger-Huet Anomaly Alba Rods Platelet Estimate Clumped Platelets Plt Clumps, EDTA Large Platelets Giant Platelets Platelet Satelliting Plt Morphology Comment RBC Morphology Dimorphic RBCs Polychromasia Hypochromasia Poikilocytosis Anisocytosis Microcytosis Macrocytosis Spherocytes Pappenheimer Bodies Sickle Cells Target Cells Tear Drop Cells Ovalocytes Helmet Cells Mccoy-Stuttgart Bodies [place] Rings [place] Cells Bite Cells Crenated Cell Elliptocytes Acanthocytes (Spur) Rouleaux Hemoglobin C Crystals Schistocytes Malaria parasites James Bodies Hem Pathologist Commnt Sodium 144 Potassium 3.5 L Chloride 112.5 H Carbon Dioxide 22 Anion Gap 13 BUN 22 H Creatinine 1.0 Estimated GFR > 60 BUN/Creatinine Ratio 22 Glucose 169 H POC Glucose 167 H Calcium 7.4 L Magnesium 2.30 Total Bilirubin 0.50 AST 15 ALT 7 Alkaline Phosphatase 106 Total Protein 5.5 L Albumin 1.3 L Albumin/Globulin Ratio 0.3 Influenza A (Rapid) Negative Influenza A (RT-PCR) Negative Influenza B (Rapid) Negative Influenza B (RT-PCR) Negative
--- NOTE | 2018-05-12 13:26 | Cat Scan Report ---
CT HEAD WITHOUT CONTRAST: HISTORY: Slurred speech. TECHNIQUE: Sequential CT images without contrast. FINDINGS: Images obtained show bilateral prominence of the sulci and ventricles. There are no abnormal intra- or extra-axial blood or fluid collections. There are no focal masses or evidence of mass effect. The thompson white matter differentiation appears within normal limits. Regions of periventricular decreased attenuation are consistent with microangiopathic ischemic disease. Chronic focal infarcts measuring up to 1 cm are noted in the left ellis radiata, left ryan and right cerebellar hemisphere. The calvarium, sinuses and mastoid air cells are within normal limits. IMPRESSION: Evidence of atrophy and microangiopathic ischemic disease. Chronic focal infarcts as described. No acute intracranial process noted. No significant change since 04/25/18.
--- NOTE | 2018-05-12 14:06 | Progress Note ---
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 Martinez catheter -ID following Acute Delirium -Head CT scan neg -may be related underlying dementia versus acute infection Dysphagia -For barium swallow today -GI consulted for peg tube placement- to be placed on 05/14 bs pt has to be off plavix for 5 days -cont aspiration precautions Hypokalemia -will replete and monitor -will check mg level Severe protein calorie malnutrition -Dependency Case Manager following Physical deconditioning -cont fall precautions -PT consulted h/o CVA -cont supportive care -off plavix due to scheduled peg tube placement Disp: For d/c after peg tube placement History Interval history: Pt is unable to communicate appropriately. It was reported by her nurse that she is unable to tolerate the pureed diet. Hospitalist Physical - Constitutional Vitals: Temp Pulse Resp BP Pulse Ox 97.9 F 98 H 20 111/59 95 05/12/18 08:03 05/12/18 10:00 05/12/18 10:00 05/12/18 08:03 05/12/18 10:00 General appearance: Present: no acute distress - EENT Eyes: Present: PERRL, EOM intact ENT: hearing intact, clear oral mucosa - Neck Neck: Present: supple - Respiratory Respiratory effort: normal Respiratory: negative: CTA - Cardiovascular Rhythm: regular Heart Sounds: Present: S1 & S2 - Extremities Extremities: No edema - Abdominal General gastrointestinal: soft, non-tender, normal bowel sounds - Neurologic Neurologic: other (alert and oriented to person only) Results - Labs CBC & Chem 7: 05/12/18 08:41 05/12/18 08:41 Labs: Laboratory Last Values WBC 10.5 K/mm3 (4.5-11.0) 05/12/18 08:41 RBC 3.65 M/mm3 (3.65-5.03) 05/12/18 08:41 Hgb 7.6 gm/dl (11.8-15.2) L 05/12/18 08:41 Hct 25.1 % (35.5-45.6) L 05/12/18 08:41 MCV 69 fl (84-94) L 05/12/18 08:41 MCH 21 pg (28-32) L 05/12/18 08:41 MCHC 30 % (32-34) L 05/12/18 08:41 RDW 19.1 % (13.2-15.2) H 05/12/18 08:41 Plt Count 221 K/mm3 (140-440) 05/12/18 08:41 Lymph % (Auto) 7.9 % (13.4-35.0) L 05/12/18 08:41 Garza % (Auto) 4.3 % (0.0-7.3) 05/12/18 08:41 Eos % (Auto) 1.0 % (0.0-4.3) 05/12/18 08:41 Baso % (Auto) 0.4 % (0.0-1.8) 05/12/18 08:41 Lymph # 0.8 K/mm3 (1.2-5.4) L 05/12/18 08:41 Garza # 0.5 K/mm3 (0.0-0.8) 05/12/18 08:41 Eos # 0.1 K/mm3 (0.0-0.4) 05/12/18 08:41 Baso # 0.0 K/mm3 (0.0-0.1) 05/12/18 08:41 Add Manual Diff Complete 05/11/18 14:09 Total Counted 100 05/11/18 14:09 Seg Neutrophils % 86.4 % (40.0-70.0) H 05/12/18 08:41 Seg Neuts % (Manual) 49.0 % (40.0-70.0) 05/11/18 14:09 Band Neutrophils % 0 % 05/11/18 14:09 Lymphocytes % (Manual) 45.0 % (13.4-35.0) H 05/11/18 14:09 Reactive Lymphs % (Man) 0 % 05/11/18 14:09 Monocytes % (Manual) 4.0 % (0.0-7.3) 05/11/18 14:09 Eosinophils % (Manual) 1.0 % (0.0-4.3) 05/11/18 14:09 Basophils % (Manual) 1.0 % (0.0-1.8) 05/11/18 14:09 Metamyelocytes % 0 % 05/11/18 14:09 Myelocytes % 0 % 05/11/18 14:09 Promyelocytes % 0 % 05/11/18 14:09 Blast Cells % 0 % 05/11/18 14:09 Nucleated RBC % Not Reportable 05/11/18 14:09 Seg Neutrophils # 9.0 K/mm3 (1.8-7.7) H 05/12/18 08:41 Seg Neutrophils # Man 6.0 K/mm3 (1.8-7.7) 05/11/18 14:09 Band Neutrophils # 0.0 K/mm3 05/11/18 14:09 Lymphocytes # (Manual) 5.5 K/mm3 (1.2-5.4) H 05/11/18 14:09 Abs React Lymphs (Man) 0.0 K/mm3 05/11/18 14:09 Monocytes # (Manual) 0.5 K/mm3 (0.0-0.8) 05/11/18 14:09 Eosinophils # (Manual) 0.1 K/mm3 (0.0-0.4) 05/11/18 14:09 Basophils # (Manual) 0.1 K/mm3 (0.0-0.1) 05/11/18 14:09 Metamyelocytes # 0.0 K/mm3 05/11/18 14:09 Myelocytes # 0.0 K/mm3 05/11/18 14:09 Promyelocytes # 0.0 K/mm3 05/11/18 14:09 Blast Cells # 0.0 K/mm3 05/11/18 14:09 WBC Morphology Not Reportable 05/11/18 14:09 Hypersegmented Neuts Not Reportable 05/11/18 14:09 Hyposegmented Neuts Not Reportable 05/11/18 14:09 Hypogranular Neuts Not Reportable 05/11/18 14:09 Smudge Cells Not Reportable 05/11/18 14:09 Toxic Granulation Not Reportable 05/11/18 14:09 Toxic Vacuolation Not Reportable 05/11/18 14:09 Dohle Bodies Not Reportable 05/11/18 14:09 Pelger-Huet Anomaly Not Reportable 05/11/18 14:09 Alba Rods Not Reportable 05/11/18 14:09 Platelet Estimate Consistent w auto 05/11/18 14:09 Clumped Platelets Not Reportable 05/11/18 14:09 Plt Clumps, EDTA Not Reportable 05/11/18 14:09 Large Platelets Not Reportable 05/11/18 14:09 Giant Platelets Not Reportable 05/11/18 14:09 Platelet Satelliting Not Reportable 05/11/18 14:09 Plt Morphology Comment Not Reportable 05/11/18 14:09 RBC Morphology Not Reportable 05/11/18 14:09 Dimorphic RBCs Not Reportable 05/11/18 14:09 Polychromasia Few 05/11/18 14:09 Hypochromasia Not Reportable 05/11/18 14:09 Poikilocytosis Not Reportable 05/11/18 14:09 Anisocytosis 1+ 05/11/18 14:09 Microcytosis Not Reportable 05/11/18 14:09 Macrocytosis Not Reportable 05/11/18 14:09 Spherocytes Not Reportable 05/11/18 14:09 Pappenheimer Bodies Not Reportable 05/11/18 14:09 Sickle Cells Not Reportable 05/11/18 14:09 Target Cells Not Reportable 05/11/18 14:09 Tear Drop Cells Not Reportable 05/11/18 14:09 Ovalocytes Not Reportable 05/11/18 14:09 Helmet Cells Not Reportable 05/11/18 14:09 Mccoy-[place] Bodies Not Reportable 05/11/18 14:09 [place] Rings Not Reportable 05/11/18 14:09 Rowdy Cells Not Reportable 05/11/18 14:09 Bite Cells Not Reportable 05/11/18 14:09 Crenated Cell Not Reportable 05/11/18 14:09 Elliptocytes Not Reportable 05/11/18 14:09 Acanthocytes (Spur) Not Reportable 05/11/18 14:09 Rouleaux Not Reportable 05/11/18 14:09 Hemoglobin C Crystals Not Reportable 05/11/18 14:09 Schistocytes Not Reportable 05/11/18 14:09 Malaria parasites Not Reportable 05/11/18 14:09 James Bodies Not Reportable 05/11/18 14:09 Hem Pathologist Commnt No 05/11/18 14:09 APTT 30.3 Sec. (24.2-36.6) 05/07/18 10:37 Sodium 144 mmol/L (137-145) 05/12/18 08:41 Potassium 3.5 mmol/L (3.6-5.0) L 05/12/18 08:41 Chloride 112.5 mmol/L (98-107) H 05/12/18 08:41 Carbon Dioxide 22 mmol/L (22-30) 05/12/18 08:41 Anion Gap 13 mmol/L 05/12/18 08:41 BUN 22 mg/dL (9-20) H 05/12/18 08:41 Creatinine 1.0 mg/dL (0.8-1.5) 05/12/18 08:41 Estimated GFR > 60 ml/min 05/12/18 08:41 BUN/Creatinine Ratio 22 % 05/12/18 08:41 Glucose 169 mg/dL (75-100) H 05/12/18 08:41 POC Glucose 167 (70-105) H 05/12/18 11:26 Hemoglobin A1c 7.6 % (4-6) H 05/08/18 03:15 Lactic Acid 1.60 mmol/L (0.7-2.0) 05/07/18 13:21 Calcium 7.4 mg/dL (8.4-10.2) L 05/12/18 08:41 Phosphorus 3.60 mg/dL (2.5-4.5) 05/09/18 01:00 Magnesium 2.30 mg/dL (1.7-2.3) 05/12/18 08:41 Total Bilirubin 0.50 mg/dL (0.1-1.2) 05/12/18 08:41 AST 15 units/L (5-40) 05/12/18 08:41 ALT 7 units/L (7-56) 05/12/18 08:41 Alkaline Phosphatase 106 units/L (35-129) 05/12/18 08:41 Total Protein 5.5 g/dL (6.3-8.2) L 05/12/18 08:41 Albumin 1.3 g/dL (3.9-5) L 05/12/18 08:41 Albumin/Globulin Ratio 0.3 % 05/12/18 08:41 Urine Color Yellow (Yellow) 05/07/18 12:20 Urine Turbidity Clear (Clear) 05/07/18 12:20 Urine pH 5.0 (5.0-7.0) 05/07/18 12:20 Ur Specific [place] 1.012 (1.003-1.030) 05/07/18 12:20 Urine Protein <15 mg/dl mg/dL (Negative) 05/07/18 12:20 Urine Glucose (UA) Neg mg/dL (Negative) 05/07/18 12:20 Urine Ketones Tr mg/dL (Negative) 05/07/18 12:20 Urine Blood Sm (Negative) 05/07/18 12:20 Urine Nitrite Neg (Negative) 05/07/18 12:20 Urine Bilirubin Neg (Negative) 05/07/18 12:20 Urine Urobilinogen < 2.0 mg/dL (<2.0) 05/07/18 12:20 Ur Leukocyte Esterase Neg (Negative) 05/07/18 12:20 Urine WBC (Auto) 3.0 /HPF (0.0-6.0) 05/07/18 12:20 Urine RBC (Auto) 7.0 /HPF (0.0-6.0) 05/07/18 12:20 U Epithel Cells (Auto) < 1.0 /HPF (0-13.0) 05/07/18 12:20 Urine Bacteria (Auto) 1+ /HPF (Negative) 05/07/18 12:20 Urine Mucus Few /HPF 05/07/18 12:20 Influenza A (Rapid) Negative (Negative) 05/12/18 Unknown Influenza A (RT-PCR) Negative (Negative) 05/12/18 Unknown Influenza B (Rapid) Negative (Negative) 05/12/18 Unknown Influenza B (RT-PCR) Negative (Negative) 05/12/18 Unknown Nutrition/Malnutrition Assess - Dietary Evaluation Nutrition/Malnutrition Findings: Nutrition Notes Start: 05/08/18 09:32 Freq: Status: Active Protocol: Document 05/08/18 09:32 TW (Rec: 05/08/18 10:56 TW [id number]) Co-Sign 05/08/18 09:32 RM Nutrition Notes 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 Height 5 ft 6 in Weight 92.254 kg [place] Body Weight (kg) 64.54 BMI 32.8 Weight Status Overweight Subjective/Other Information RN screen for New onset DM and MST score. Pt nonverbal. 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 Pt family member declined ONS d/t pt disliking them. Pt family member stated that she has known about the patients DM for awhile now, and that she knows how to handle it. Provided pt family member with continuing DM education. Per family member, pt has no signifiant wt loss and she is unsure of UBW. No orbital, clavicle or temportal wasting. Percent of energy/protein needs met: 22%/14% Burn Absent Trauma Absent #1 Nutrition Diagnosis Inadequate oral intake Etiology AMS As Evidenced by Signs and Symptoms Pt meeting 22% of kcal needs and 14% of protein needs Is patient on ventilator? No Is Patient Ambulatory and/or Out of Bed No REE-([facility]-confined to bed) 9623.923 Calculation Used for Recommendations [facility] Additional Notes Protein needs: AdBW: 78 KG (1-1.2 g/kg) (78-94 g/day) Fluid needs: 1ml/ kcal Nutrition Intervention Change Diet Order: Continue current Teaching Recipient Family Learning Readiness Good Teaching Methods Discussion Handout Response to Teaching Verbalize understanding Education Handouts Provided Carbohydrate Counting for People with Diabetes Barriers to Learning No Barriers RD phone number provided Yes Patient aware of follow up options Yes Goal #1 Meet at least 75% of kcal and protein needs Anticipated Discharge Needs: Cardiac Diet Follow-Up By: 05/12/18 Additional Comments F/U for PO and ONS intake
[2018-05-12] MEDS: KCL 10MEQ/100ML 10 MEQ/100 ML BAG IV SCH ×2 (15:59→16:59)
[2018-05-12] MEDS: KEFLEX PO SCH (22:05)
[2018-05-12] MEDS: PRAVACHOL PO SCH (22:05)
[2018-05-13] MEDS: D5/0.45NS 1,000 ML IV SCH ×2 (08:38→22:24)
[2018-05-13] MEDS: FEOSOL PO SCH ×2 (09:00→22:29)
[2018-05-13] MEDS: KEFLEX PO SCH (09:00)
[2018-05-13] MEDS: CARAFATE PO SCH ×2 (09:00→22:28)
[2018-05-13] MEDS: PLAVIX PO SCH (09:00)
[2018-05-13] MEDS: PEPCID PO SCH (09:00)
[2018-05-13] MEDS: SODIUM CHLORIDE FLUSH SYRINGE 10 ML IV SCH ×2 (09:01→22:26)
--- NOTE | 2018-05-13 11:08 | Gastroenterology Progress Note ---
Addendum entered and electronically signed by JODIE JOHNSON MD 05/13/18 12:42: Patient seen and examined on 05/13/2018. Patient slow to improve with his confusion and lethargy. Speech evaluated again today and kept NPO due to aspiration risk. Family still in discussion regarding PEG placement. Discussed with them regarding risks of complications with the procedure including but not limited to bleeding, infection, perforation, aspiration. PEG also would not prevent asp iration. Will tentatively plan for EGD/PEG tomorrow based on family's decision. Original Note: Assessment and Plan This is an 78 yo AAM with pmh of CVA with residual weakness and on plavix, HTN, and DM and recent admission for UTI and discharged with dwelling durán catheter admitted initially for symptoms of weakness, fever, and confusion. Patient has been undergoing work up for sepsis with unclear source. Continues to be somewhat lethargic and confused. Speech has evaluated him and kept him NPO due to risk of aspiration. GI consulted for PEG placement. - Patient Problems (1) Dysphagia Current Visit: Yes Status: Acute Qualifiers: Dysphagia type: oropharyngeal phase Qualified Code(s): R13.12 - Dysphagia, oropharyngeal phase Plan to address problem: Oropharyngeal dysphagia: likely 2/2 mental status in the setting of sepsis and metabolic encephalopathy. - failed speech evaluation for swallow - family is now unsure if they would like to proceed with PEG tomorrow as previously planned/discussed and are request patient be re-evaluated by speech today prior to making final decision on PEG (spoke with hospitalist to make aware of request) -will tentatively schedule EGD/PEG for tomorrow pending family consent as above -continue to hold plavix -INR in am -continue supportive care -electrolyte management per primary team -will follow Subjective Date of service: 05/13/18 Principal diagnosis: PEG Interval history: No acute distress. Spoke with family at bedside (son and ) regarding PEG placement tomorrow, however now they are unsure if they want to proceed and are requesting for him to re-evaluated by speech prior making decision. Objective - Constitutional Vitals: Temp Pulse Resp BP Pulse Ox 98.0 F 110 H 20 117/68 93 05/13/18 07:18 05/13/18 10:00 05/13/18 10:00 05/13/18 07:18 05/13/18 10:00 General appearance: no acute distress, other (lethargic) - Respiratory Respiratory: bilateral: diminished - Cardiovascular Rhythm: other (tachycardia) - Gastrointestinal General gastrointestinal: Present: soft, non-distended, normal bowel sounds - Labs CBC & Chem 7: 05/12/18 08:41 05/12/18 08:41 Labs: Laboratory Results - last 24 hr 05/12/18 05/12/18 05/12/18 11:26 16:57 21:41 POC Glucose 167 H 174 H 165 H Influenza A (Rapid) Influenza A (RT-PCR) Influenza B (Rapid) Influenza B (RT-PCR) 05/12/18 05/13/18 Unknown 07:21 POC Glucose 181 H Influenza A (Rapid) Negative Influenza A (RT-PCR) Negative Influenza B (Rapid) Negative Influenza B (RT-PCR) Negative
--- NOTE | 2018-05-13 12:19 | Progress Note ---
Assessment and Plan Cultures: 05/07/18 Blood: no growth thus far 05/08/18: Urine: Jennifer Albicans A/P: 78-year-old male past medical history of CVA, Type 2 diabetes, GERD, Asthma, Hyperlipedemia, Right total knee replacement, now admitted with : 1. SIRS vs Sepsis on admisson, Resolved, evidenced by leukocytois, tachycardia and elevated lactic acid, etiology unclear. U/A is negative for a UTI, Urine culture is positive for Jennifer Albicans, Blood cultures show no growth thus far, no temperature, Chest xray shows no infilitrates. Influenza screen negative. Received Cefepime for 5 days, was changed to PO Keflex by IMS today. 2, Urinary Tract Infection: less likely, U/A is not consistent with a UTI, Urine culture is positive for Jennifer albicans, however this may be reflective of colonization, Indwelling Martinez catheter placed 04/25/18 for urinary retention. 3. Acute encephalopathy: family states some confusion at home, currently not a baseline. Improving 4. Penicillin Allergy: anaphylactic reaction per family. Currently tolerating cephalosporin, continue to monitor closely. Plan: - complete Keflex tomorrow (today is day 6 of 7) Ligia Silva MD Infectious Disease [employer] C:[phone] Subjective Date of service: 05/13/18 Principal diagnosis: PEG Interval history: No fever. More awake, able to talk but having issues swallowing. Family undecided about possible PEG. Martinez draining urine. Objective - Exam Narrative Exam: Constitutional: drowsy but easily awakened. no acute distress observed Head, Ears, Nose: Normocephalic, atraumatic. External ears, nose normal Eyes: unable to assess Neck: Supple, no meningeal signs Oral: dentition poor, no thrush Cardiovascular: S1, S2 normal. Respiratory: Good air entry, clear bilaterally GI: Soft, non-tender; bowel sounds normal. No peritoneal signs. Martinez + Musculoskeletal: No pedal edema, no cyanosis Skin: No rash or abscess. Hem/Lymphatic: No palpable cervical or supraclavicular nodes. No lymphangitis Psych: no agitation Neurological: drowsy, easily awakened, following basic commands - Constitutional Vitals: Vital Signs Temp Pulse Resp BP Pulse Ox 98.0 F 110 H 20 117/68 93 05/13/18 07:18 05/13/18 10:00 05/13/18 10:00 05/13/18 07:18 05/13/18 10:00 Temperature -Last 24 Hours Temperature 98.0 F Temperature 97.4 F Temperature 97.4 F Temperature 98.5 F Temperature 97.9 F - Labs CBC & Chem 7: 05/12/18 08:41 05/12/18 08:41 Labs: Abnormal lab results 05/12/18 05/12/18 05/13/18 Range/Units 16:57 21:41 07:21 POC Glucose 174 H 165 H 181 H (70-105) 05/13/18 Range/Units 11:41 POC Glucose 167 H (70-105)
--- NOTE | 2018-05-13 15:11 | Progress Note ---
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 due to indwelling Martinez catheter -ID following Acute delirium -Improved to new baseline -may be related to underlying dementia -Head CT scan neg Dysphagia -GI consulted for peg tube placement- to be placed on 05/14 since pt has to be off plavix for 5 days -cont aspiration precautions Hypokalemia -repleted, will monitor -will check mg level Severe protein calorie malnutrition -Dobhoff tube placed today for temporary feeding -[employer]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 PEG tube placement was once again discussed with the patient's family members. Hospitalist Physical - Constitutional Vitals: Temp Pulse Resp BP Pulse Ox 98.0 F 110 H 20 97/53 93 05/13/18 07:18 05/13/18 10:00 05/13/18 10:00 05/13/18 13:23 05/13/18 10:00 General appearance: Present: no acute distress - EENT Eyes: Present: PERRL, EOM intact ENT: hearing intact, clear oral mucosa - Neck Neck: Present: supple - Respiratory Respiratory effort: normal Respiratory: bilateral: CTA - Cardiovascular Rhythm: regular Heart Sounds: Present: S1 & S2 - Extremities Extremity abnormal: other (edema in bilateral lower extremities) - Abdominal General gastrointestinal: soft, non-tender, non-distended, normal bowel sounds - Neurologic Neurologic: other (awake but unable to communicate appropriately) Results - Labs CBC & Chem 7: 05/12/18 08:41 05/12/18 08:41 Labs: Laboratory Last Values WBC 10.5 K/mm3 (4.5-11.0) 05/12/18 08:41 RBC 3.65 M/mm3 (3.65-5.03) 05/12/18 08:41 Hgb 7.6 gm/dl (11.8-15.2) L 05/12/18 08:41 Hct 25.1 % (35.5-45.6) L 05/12/18 08:41 MCV 69 fl (84-94) L 05/12/18 08:41 MCH 21 pg (28-32) L 05/12/18 08:41 MCHC 30 % (32-34) L 05/12/18 08:41 RDW 19.1 % (13.2-15.2) H 05/12/18 08:41 Plt Count 221 K/mm3 (140-440) 05/12/18 08:41 Lymph % (Auto) 7.9 % (13.4-35.0) L 05/12/18 08:41 Br[place]ley % (Auto) 4.3 % (0.0-7.3) 05/12/18 08:41 Eos % (Auto) 1.0 % (0.0-4.3) 05/12/18 08:41 Baso % (Auto) 0.4 % (0.0-1.8) 05/12/18 08:41 Lymph # 0.8 K/mm3 (1.2-5.4) L 05/12/18 08:41 Brantley # 0.5 K/mm3 (0.0-0.8) 05/12/18 08:41 Eos # 0.1 K/mm3 (0.0-0.4) 05/12/18 08:41 Baso # 0.0 K/mm3 (0.0-0.1) 05/12/18 08:41 Add Manual Diff Complete 05/11/18 14:09 Total Counted 100 05/11/18 14:09 Seg Neutrophils % 86.4 % (40.0-70.0) H 05/12/18 08:41 Seg Neuts % (Manual) 49.0 % (40.0-70.0) 05/11/18 14:09 Band Neutrophils % 0 % 05/11/18 14:09 Lymphocytes % (Manual) 45.0 % (13.4-35.0) H 05/11/18 14:09 Reactive Lymphs % (Man) 0 % 05/11/18 14:09 Monocytes % (Manual) 4.0 % (0.0-7.3) 05/11/18 14:09 Eosinophils % (Manual) 1.0 % (0.0-4.3) 05/11/18 14:09 Basophils % (Manual) 1.0 % (0.0-1.8) 05/11/18 14:09 Metamyelocytes % 0 % 05/11/18 14:09 Myelocytes % 0 % 05/11/18 14:09 Promyelocytes % 0 % 05/11/18 14:09 Blast Cells % 0 % 05/11/18 14:09 Nucleated RBC % Not Reportable 05/11/18 14:09 Seg Neutrophils # 9.0 K/mm3 (1.8-7.7) H 05/12/18 08:41 Seg Neutrophils # Man 6.0 K/mm3 (1.8-7.7) 05/11/18 14:09 Band Neutrophils # 0.0 K/mm3 05/11/18 14:09 Lymphocytes # (Manual) 5.5 K/mm3 (1.2-5.4) H 05/11/18 14:09 Abs React Lymphs (Man) 0.0 K/mm3 05/11/18 14:09 Monocytes # (Manual) 0.5 K/mm3 (0.0-0.8) 05/11/18 14:09 Eosinophils # (Manual) 0.1 K/mm3 (0.0-0.4) 05/11/18 14:09 Basophils # (Manual) 0.1 K/mm3 (0.0-0.1) 05/11/18 14:09 Metamyelocytes # 0.0 K/mm3 05/11/18 14:09 Myelocytes # 0.0 K/mm3 05/11/18 14:09 Promyelocytes # 0.0 K/mm3 05/11/18 14:09 Blast Cells # 0.0 K/mm3 05/11/18 14:09 WBC Morphology Not Reportable 05/11/18 14:09 Hypersegmented Neuts Not Reportable 05/11/18 14:09 Hyposegmented Neuts Not Reportable 05/11/18 14:09 Hypogranular Neuts Not Reportable 05/11/18 14:09 Smudge Cells Not Reportable 05/11/18 14:09 Toxic Granulation Not Reportable 05/11/18 14:09 Toxic Vacuolation Not Reportable 05/11/18 14:09 Dohle Bodies Not Reportable 05/11/18 14:09 Pelger-Huet Anomaly Not Reportable 05/11/18 14:09 Alba Rods Not Reportable 05/11/18 14:09 Platelet Estimate Consistent w auto 05/11/18 14:09 Clumped Platelets Not Reportable 05/11/18 14:09 Plt Clumps, EDTA Not Reportable 05/11/18 14:09 Large Platelets Not Reportable 05/11/18 14:09 Giant Platelets Not Reportable 05/11/18 14:09 Platelet Satelliting Not Reportable 05/11/18 14:09 Plt Morphology Comment Not Reportable 05/11/18 14:09 RBC Morphology Not Reportable 05/11/18 14:09 Dimorphic RBCs Not Reportable 05/11/18 14:09 Polychromasia Few 05/11/18 14:09 Hypochromasia Not Reportable 05/11/18 14:09 Poikilocytosis Not Reportable 05/11/18 14:09 Anisocytosis 1+ 05/11/18 14:09 Microcytosis Not Reportable 05/11/18 14:09 Macrocytosis Not Reportable 05/11/18 14:09 Spherocytes Not Reportable 05/11/18 14:09 Pappenheimer Bodies Not Reportable 05/11/18 14:09 Sickle Cells Not Reportable 05/11/18 14:09 Target Cells Not Reportable 05/11/18 14:09 Tear Drop Cells Not Reportable 05/11/18 14:09 Ovalocytes Not Reportable 05/11/18 14:09 Helmet Cells Not Reportable 05/11/18 14:09 Mccoy-[place] Bodies Not Reportable 05/11/18 14:09 [place] Rings Not Reportable 05/11/18 14:09 Jazmin Cells Not Reportable 05/11/18 14:09 Bite Cells Not Reportable 05/11/18 14:09 Crenated Cell Not Reportable 05/11/18 14:09 Elliptocytes Not Reportable 05/11/18 14:09 Acanthocytes (Spur) Not Reportable 05/11/18 14:09 Rouleaux Not Reportable 05/11/18 14:09 Hemoglobin C Crystals Not Reportable 05/11/18 14:09 Schistocytes Not Reportable 05/11/18 14:09 Malaria parasites Not Reportable 05/11/18 14:09 James Bodies Not Reportable 05/11/18 14:09 Hem Pathologist Commnt No 05/11/18 14:09 APTT 30.3 Sec. (24.2-36.6) 05/07/18 10:37 Sodium 144 mmol/L (137-145) 05/12/18 08:41 Potassium 3.5 mmol/L (3.6-5.0) L 05/12/18 08:41 Chloride 112.5 mmol/L (98-107) H 05/12/18 08:41 Carbon Dioxide 22 mmol/L (22-30) 05/12/18 08:41 Anion Gap 13 mmol/L 05/12/18 08:41 BUN 22 mg/dL (9-20) H 05/12/18 08:41 Creatinine 1.0 mg/dL (0.8-1.5) 05/12/18 08:41 Estimated GFR > 60 ml/min 05/12/18 08:41 BUN/Creatinine Ratio 22 % 05/12/18 08:41 Glucose 169 mg/dL (75-100) H 05/12/18 08:41 POC Glucose 167 (70-105) H 05/13/18 11:41 Hemoglobin A1c 7.6 % (4-6) H 05/08/18 03:15 Lactic Acid 1.60 mmol/L (0.7-2.0) 05/07/18 13:21 Calcium 7.4 mg/dL (8.4-10.2) L 05/12/18 08:41 Phosphorus 3.60 mg/dL (2.5-4.5) 05/09/18 01:00 Magnesium 2.30 mg/dL (1.7-2.3) 05/12/18 08:41 Total Bilirubin 0.50 mg/dL (0.1-1.2) 05/12/18 08:41 AST 15 units/L (5-40) 05/12/18 08:41 ALT 7 units/L (7-56) 05/12/18 08:41 Alkaline Phosphatase 106 units/L (35-129) 05/12/18 08:41 Total Protein 5.5 g/dL (6.3-8.2) L 05/12/18 08:41 Albumin 1.3 g/dL (3.9-5) L 05/12/18 08:41 Albumin/Globulin Ratio 0.3 % 05/12/18 08:41 Urine Color Yellow (Yellow) 05/07/18 12:20 Urine Turbidity Clear (Clear) 05/07/18 12:20 Urine pH 5.0 (5.0-7.0) 05/07/18 12:20 Ur Specific [place] 1.012 (1.003-1.030) 05/07/18 12:20 Urine Protein <15 mg/dl mg/dL (Negative) 05/07/18 12:20 Urine Glucose (UA) Neg mg/dL (Negative) 05/07/18 12:20 Urine Ketones Tr mg/dL (Negative) 05/07/18 12:20 Urine Blood Sm (Negative) 05/07/18 12:20 Urine Nitrite Neg (Negative) 05/07/18 12:20 Urine Bilirubin Neg (Negative) 05/07/18 12:20 Urine Urobilinogen < 2.0 mg/dL (<2.0) 05/07/18 12:20 Ur Leukocyte Esterase Neg (Negative) 05/07/18 12:20 Urine WBC (Auto) 3.0 /HPF (0.0-6.0) 05/07/18 12:20 Urine RBC (Auto) 7.0 /HPF (0.0-6.0) 05/07/18 12:20 U Epithel Cells (Auto) < 1.0 /HPF (0-13.0) 05/07/18 12:20 Urine Bacteria (Auto) 1+ /HPF (Negative) 05/07/18 12:20 Urine Mucus Few /HPF 05/07/18 12:20 Influenza A (Rapid) Negative (Negative) 05/12/18 Unknown Influenza A (RT-PCR) Negative (Negative) 05/12/18 Unknown Influenza B (Rapid) Negative (Negative) 05/12/18 Unknown Influenza B (RT-PCR) Negative (Negative) 05/12/18 Unknown Nutrition/Malnutrition Assess - Dietary Evaluation Nutrition/Malnutrition Findings: Nutrition Notes Start: 05/08/18 09:32 Freq: Status: Active Protocol: Document 05/12/18 13:40 SA (Rec: 05/12/18 14:19 SA [id number]) Co-Sign 05/12/18 13:40 LP Nutrition Notes Initial or Follow up Reassessment Current Diagnosis Coronary Artery Disease Diabetes Hypertension Respiratory Failure Stroke Hyperlipidemia Other Pertinent Diagnosis DVT, GERD, AMS Current Diet NPO Labs/Tests Cr: 22 Ca: 7.2 POC: 198 Glu: 150 Pertinent Medications Reviewed. Height 5 ft 6 in Weight 92 kg Conception Body Weight (kg) 64.54 BMI 32.7 Weight Status Overweight Subjective/Other Information Per daughter and mother in room, patient has been coughing up phlegum and other substances. 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 PEG placement taking place on after Plavix is out of system. Percent of energy/protein needs met: 0%/0% Burn Absent Trauma Absent #1 Nutrition Diagnosis Inadequate oral intake Etiology waiting for PEG placement and MBS As Evidenced by Signs and Symptoms NPO Diagnosis Progress(for reassessment Continues documentation) Is patient on ventilator? No Is Patient Ambulatory and/or Out of Bed No REE-([facility]-confined to bed) [phone] Calculation Used for Recommendations [facility] Additional Notes Protein needs: AdBW: 78 KG (1-1.2 g/kg) (78-94 g/day) Fluid needs: 1ml/ kcal Nutrition Intervention Change Diet Order: Advance as medically feasible Goal #1 PEG Placement Goal #2 Meet at least 75% of kcal and protein needs Anticipated Discharge Needs: Unable to determine at this time Follow-Up By: 05/14/18 Additional Comments F/U: PEG placement
--- NOTE | 2018-05-13 16:34 | XRay Report ---
FINAL REPORT EXAM: XR ABDOMEN 1V AP HISTORY: Check dobhoff placement TECHNIQUE: Supine abdomen for tube placement PRIORS: None. FINDINGS: Feeding tube present. Distal end at the gastroesophageal junction. Visualized bowel gas pattern is unremarkable IMPRESSION: Feeding tube with distal end at the gastroesophageal junction suggest advancement.
[2018-05-13] MEDS: PRAVACHOL PO SCH (22:28)
[2018-05-14 06:05] LABS: Basophils % (Auto) 0.3 % (0.0-1.8); Eosinophils # (Auto) 0.1 K/mm3 (0.0-0.4); Eosinophils % (Auto) 0.7 % (0.0-4.3); Hemoglobin 7.2 gm/dl (11.8-15.2); Lymphocytes # (Auto) 0.8 K/mm3 (1.2-5.4); Lymphocytes % (Auto) 7.5 % (13.4-35.0); Mean Corpuscular HGB Conc 30 % (32-34); Monocytes # (Auto) 0.5 K/mm3 (0.0-0.8); Platelet Count 255 K/mm3 (140-440); Red Blood Count 3.47 M/mm3 (3.65-5.03); Red Cell Distribution Width 19.4 % (13.2-15.2)
[2018-05-14 06:09] LABS: INR 1.49 (0.87-1.13)
[2018-05-14 06:22] LABS: BUN/Creatinine Ratio 18; Blood Urea Nitrogen 22 mg/dL (9-20); Calcium 7.1 mg/dL (8.4-10.2); Hemolysis Index 0
[2018-05-14 06:34] LABS: Mean Corpuscular Volume 69 fl (84-94)
--- NOTE | 2018-05-14 08:28 | Progress Note ---
Assessment and Plan Cultures: 05/07/18 Blood: no growth thus far 05/08/18: Urine: Jennifer Albicans A/P: 78-year-old male past medical history of CVA, Type 2 diabetes, GERD, Asthma, Hyperlipedemia, Right total knee replacement, now admitted with : 1. SIRS vs Sepsis on admisson, Resolved, evidenced by leukocytois, tachycardia and elevated lactic acid, etiology unclear. U/A is negative for a UTI, Urine culture is positive for Jennifer Albicans, Blood cultures show no growth thus far, no temperature, Chest xray shows no infilitrates. Influenza screen negative. Received Cefepime for 5 days, was changed to PO Keflex by IMS today. 2, Urinary Tract Infection: less likely, U/A is not consistent with a UTI, Urine culture is positive for Jennifer albicans, however this may be reflective of colonization, Indwelling Martinez catheter placed 04/25/18 for urinary retention. 3. Acute encephalopathy: family states some confusion at home, currently not a baseline. Improving 4. Penicillin Allergy: anaphylactic reaction per family. Currently tolerating cephalosporin, continue to monitor closely. 5. Acute Respiratory Failure: Chest xray at bedside, Possible left lower lobe aspiration pneumonia. Transferred to [facility] . Will discontinue Keflex and start ceftriaxone and flagyl. Plan: -Discontinue Keflex -Discontinue Unasyn -Start Ceftriaxone 1 gm IV every 24 hours, D1 -Start Flagyl 500mg IV every 8 hours, D1 of D7 -allergic to penicillin, tolerating cephalosporins, continue to monitor closely [facility] M: [phone] O:[phone] Subjective Date of service: 05/14/18 Principal diagnosis: PEG Interval history: Patient seen and examined. Awake, Alert, increased WOB. and daughter at bedside. Nurses notes, labs, reports reviewed, discussed with family. Objective - Exam Narrative Exam: Constitutional:Awake, Alert. increased WOB, mild respiratory distress observed Head, Ears, Nose: Normocephalic, atraumatic. External ears, nose normal Eyes: unable to assess Neck: Supple, no meningeal signs Oral: dentition poor. no thrush Cardiovascular: S1, S2 normal. Respiratory: Increased WOB, scattered rhonchi throughout GI: Soft, non-tender; bowel sounds normal. +NGT Musculoskeletal: No pedal edema, no cyanosis., + right hemiparesis Skin: No rash or abscess. Hem/Lymphatic: No palpable cervical or supraclavicular nodes. No lymphangitis Psych: awake, mild respiratory distress Neurological: +aphasia - Constitutional Vitals: Vital Signs Temp Pulse Resp BP Pulse Ox 97.8 F 101 H 20 91/57 95 05/14/18 07:32 05/14/18 07:32 05/14/18 07:32 05/14/18 07:32 05/14/18 07:32 Temperature -Last 24 Hours Temperature 97.8 F Temperature 99.2 F Temperature 98.0 F - Labs CBC & Chem 7: 05/14/18 05:20 05/14/18 05:20 Labs: Abnormal lab results 05/13/18 05/14/18 05/14/18 Range/Units 11:41 00:01 05:20 RBC (3.65-5.03) M/mm3 Hgb (11.8-15.2) gm/dl Hct (35.5-45.6) % MCV (84-94) fl MCH (28-32) pg MCHC (32-34) % RDW (13.2-15.2) % Lymph % (Auto) (13.4-35.0) % Lymph # (1.2-5.4) K/mm3 Seg Neutrophils % (40.0-70.0) % Seg Neutrophils # (1.8-7.7) K/mm3 PT 19.0 H (12.2-14.9) Sec. INR 1.49 H (0.87-1.13) Chloride (98-107) mmol/L Carbon Dioxide (22-30) mmol/L BUN (9-20) mg/dL Glucose (75-100) mg/dL POC Glucose 167 H 154 H (70-105) Calcium (8.4-10.2) mg/dL 05/14/18 05/14/18 Range/Units 05:20 05:20 RBC 3.47 L (3.65-5.03) M/mm3 Hgb 7.2 L (11.8-15.2) gm/dl Hct 24.0 L (35.5-45.6) % MCV 69 L (84-94) fl MCH 21 L (28-32) pg MCHC 30 L (32-34) % RDW 19.4 H (13.2-15.2) % Lymph % (Auto) 7.5 L (13.4-35.0) % Lymph # 0.8 L (1.2-5.4) K/mm3 Seg Neutrophils % 86.5 H (40.0-70.0) % Seg Neutrophils # 9.3 H (1.8-7.7) K/mm3 PT (12.2-14.9) Sec. INR (0.87-1.13) Chloride 114.1 H (98-107) mmol/L Carbon Dioxide 20 L (22-30) mmol/L BUN 22 H (9-20) mg/dL Glucose 183 H (75-100) mg/dL POC Glucose (70-105) Calcium 7.1 L (8.4-10.2) mg/dL
[2018-05-14] MEDS: PLAVIX PO SCH (10:30)
[2018-05-14] MEDS: CARAFATE PO SCH ×2 (10:30→22:31)
[2018-05-14] MEDS: FEOSOL PO SCH ×2 (10:30→22:31)
[2018-05-14] MEDS: PEPCID PO SCH (10:30)
--- NOTE | 2018-05-14 11:12 | Event Note ---
Date: 05/14/18 Patient was re-evaluated by speech yesterday which showed patient to be a risk for aspiration, malnutrition, and dehydration with recommendation for PEG once again given, however patient's family still wishes to hold off on PEG at this time after re-discussing option of PEG this am. Patient is currently tolerating TFs via dobhoff. Recommend continuing alternative method of nutrition and supportive care. Will sign off. Please call back if family changes their minds and wished to proceed with PEG in the future.
--- NOTE | 2018-05-14 11:27 | XRay Report ---
AP CHEST :05/14/18 CLINICAL: Hypoxia and suspected aspiration. COMPARISON:05/08/18 FINDINGS: Slightly increased vague opacity in the left lung base compared to the previous exam. The lungs are otherwise clear and unchanged. No pleural effusion. A feeding tube has been inserted and the tip is in the proximal stomach. The heart and ulnar vasculature are normal. IMPRESSION: Possible left lower lobe aspiration pneumonia. Consider advancement of the feeding tube the location more distal in the stomach or duodenum
--- NOTE | 2018-05-14 11:50 | XRay Report ---
AP ABDOMEN: HISTORY: Tube placement verification. The feeding tube has been advanced by 2-3 cm since yesterday's exam but still terminates in the fundus of the stomach. The abdominal gas pattern is unremarkable. No masses or organomegaly is identified and there is no gross evidence of free air or fluid. No significant soft tissue calcifications are noted. IMPRESSION: Unremarkable abdomen. The feeding tube terminates in the fundus of the stomach.
[2018-05-14] MEDS ORDERED: UNASYN/NS 3 GM/100 ML 3 GM/100 ML BAG IV SCH (12:00)
[2018-05-14] MEDS ORDERED: MERREM/NS 500 MG/50 ML 500 MG/50 ML BAG IV SCH (12:00)
[2018-05-14] MEDS: FLAGYL 500 MG/100 ML 500 MG/100 ML BAG IV SCH ×2 (13:34→22:30)
--- NOTE | 2018-05-14 14:32 | Progress Note ---
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 However, despite extensive education to patient family members, they refused the peg tube. GI has signed off -Patient was started on tube feedings yesterday via Dobhoff tube as requested by family members as a temporarily measure. They were informed of the risks as sociated with the Dobhoff tube feeding, which they verbalized understanding -cont aspiration precautions Hypokalemia -resolved s/p repletion, will monitor Severe protein calorie malnutrition -will hold tube feeding and restart dextrose IVF due to the aspiration -Shot Examiner following Physical deconditioning -cont fall precautions -PT/OT following h/o CVA -cont supportive care Anemia of chronic dx -H/H stabLE -will monitor and transfuse as needed Chronic urinary retention -cont durán catheter as needed Disp: Pt's condition is guarded with overall poor prognosis. TIME SPENT: 38 MINUTES History Interval history: I was called by the patient's nurse this morning that he was tachypneic in the 40s. Chest x-ray done showed aspiration pneumonia. He was then transferred to the MICU for close monitoring. Hospitalist Physical - Constitutional Vitals: Temp Pulse Resp BP Pulse Ox 97.8 F 109 H 38 H 99/54 97 05/14/18 07:32 05/14/18 10:00 05/14/18 10:00 05/14/18 09:23 05/14/18 10:35 General appearance: Present: mild distress, other (ill-looking) - EENT Eyes: Present: PERRL, EOM intact ENT: hearing intact, clear oral mucosa, other (Dobhoff tube noted) - Neck Neck: Present: supple - Respiratory Respiratory effort: labored Respiratory: bilateral: rales - Cardiovascular Rhythm: regular (tachycardia) Heart Sounds: Present: S1 & S2 - Extremities Extremity abnormal: other (edema noted in bilateral lower extremities) - Abdominal General gastrointestinal: soft, non-tender, non-distended, normal bowel sounds - Neurologic Neurologic: other (patient is unable to communicate) Results - Labs CBC & Chem 7: 05/14/18 05:20 05/14/18 05:20 Labs: Laboratory Last Values WBC 10.7 K/mm3 (4.5-11.0) 05/14/18 05:20 RBC 3.47 M/mm3 (3.65-5.03) L 05/14/18 05:20 Hgb 7.2 gm/dl (11.8-15.2) L 05/14/18 05:20 Hct 24.0 % (35.5-45.6) L 05/14/18 05:20 MCV 69 fl (84-94) L 05/14/18 05:20 MCH 21 pg (28-32) L 05/14/18 05:20 MCHC 30 % (32-34) L 05/14/18 05:20 RDW 19.4 % (13.2-15.2) H 05/14/18 05:20 Plt Count 255 K/mm3 (140-440) 05/14/18 05:20 Lymph % (Auto) 7.5 % (13.4-35.0) L 05/14/18 05:20 [place] % (Auto) 5.0 % (0.0-7.3) 05/14/18 05:20 Eos % (Auto) 0.7 % (0.0-4.3) 05/14/18 05:20 Baso % (Auto) 0.3 % (0.0-1.8) 05/14/18 05:20 Lymph # 0.8 K/mm3 (1.2-5.4) L 05/14/18 05:20 [place] # 0.5 K/mm3 (0.0-0.8) 05/14/18 05:20 Eos # 0.1 K/mm3 (0.0-0.4) 05/14/18 05:20 Baso # 0.0 K/mm3 (0.0-0.1) 05/14/18 05:20 Add Manual Diff Complete 05/11/18 14:09 Total Counted 100 05/11/18 14:09 Seg Neutrophils % 86.5 % (40.0-70.0) H 05/14/18 05:20 Seg Neuts % (Manual) 49.0 % (40.0-70.0) 05/11/18 14:09 Band Neutrophils % 0 % 05/11/18 14:09 Lymphocytes % (Manual) 45.0 % (13.4-35.0) H 05/11/18 14:09 Reactive Lymphs % (Man) 0 % 05/11/18 14:09 Monocytes % (Manual) 4.0 % (0.0-7.3) 05/11/18 14:09 Eosinophils % (Manual) 1.0 % (0.0-4.3) 05/11/18 14:09 Basophils % (Manual) 1.0 % (0.0-1.8) 05/11/18 14:09 Metamyelocytes % 0 % 05/11/18 14:09 Myelocytes % 0 % 05/11/18 14:09 Promyelocytes % 0 % 05/11/18 14:09 Blast Cells % 0 % 05/11/18 14:09 Nucleated RBC % Not Reportable 05/11/18 14:09 Seg Neutrophils # 9.3 K/mm3 (1.8-7.7) H 05/14/18 05:20 Seg Neutrophils # Man 6.0 K/mm3 (1.8-7.7) 05/11/18 14:09 Band Neutrophils # 0.0 K/mm3 05/11/18 14:09 Lymphocytes # (Manual) 5.5 K/mm3 (1.2-5.4) H 05/11/18 14:09 Abs React Lymphs (Man) 0.0 K/mm3 05/11/18 14:09 Monocytes # (Manual) 0.5 K/mm3 (0.0-0.8) 05/11/18 14:09 Eosinophils # (Manual) 0.1 K/mm3 (0.0-0.4) 05/11/18 14:09 Basophils # (Manual) 0.1 K/mm3 (0.0-0.1) 05/11/18 14:09 Metamyelocytes # 0.0 K/mm3 05/11/18 14:09 Myelocytes # 0.0 K/mm3 05/11/18 14:09 Promyelocytes # 0.0 K/mm3 05/11/18 14:09 Blast Cells # 0.0 K/mm3 05/11/18 14:09 WBC Morphology Not Reportable 05/11/18 14:09 Hypersegmented Neuts Not Reportable 05/11/18 14:09 Hyposegmented Neuts Not Reportable 05/11/18 14:09 Hypogranular Neuts Not Reportable 05/11/18 14:09 Smudge Cells Not Reportable 05/11/18 14:09 Toxic Granulation Not Reportable 05/11/18 14:09 Toxic Vacuolation Not Reportable 05/11/18 14:09 Dohle Bodies Not Reportable 05/11/18 14:09 Pelger-Huet Anomaly Not Reportable 05/11/18 14:09 Alba Rods Not Reportable 05/11/18 14:09 Platelet Estimate Consistent w auto 05/11/18 14:09 Clumped Platelets Not Reportable 05/11/18 14:09 Plt Clumps, EDTA Not Reportable 05/11/18 14:09 Large Platelets Not Reportable 05/11/18 14:09 Giant Platelets Not Reportable 05/11/18 14:09 Platelet Satelliting Not Reportable 05/11/18 14:09 Plt Morphology Comment Not Reportable 05/11/18 14:09 RBC Morphology Not Reportable 05/11/18 14:09 Dimorphic RBCs Not Reportable 05/11/18 14:09 Polychromasia Few 05/11/18 14:09 Hypochromasia Not Reportable 05/11/18 14:09 Poikilocytosis Not Reportable 05/11/18 14:09 Anisocytosis 1+ 05/11/18 14:09 Microcytosis Not Reportable 05/11/18 14:09 Macrocytosis Not Reportable 05/11/18 14:09 Spherocytes Not Reportable 05/11/18 14:09 Pappenheimer Bodies Not Reportable 05/11/18 14:09 Sickle Cells Not Reportable 05/11/18 14:09 Target Cells Not Reportable 05/11/18 14:09 Tear Drop Cells Not Reportable 05/11/18 14:09 Ovalocytes Not Reportable 05/11/18 14:09 Helmet Cells Not Reportable 05/11/18 14:09 Mccoy-Waggoner Bodies Not Reportable 05/11/18 14:09 [place] Rings Not Reportable 05/11/18 14:09 Jazmin Cells Not Reportable 05/11/18 14:09 Bite Cells Not Reportable 05/11/18 14:09 Crenated Cell Not Reportable 05/11/18 14:09 Elliptocytes Not Reportable 05/11/18 14:09 Acanthocytes (Spur) Not Reportable 05/11/18 14:09 Rouleaux Not Reportable 05/11/18 14:09 Hemoglobin C Crystals Not Reportable 05/11/18 14:09 Schistocytes Not Reportable 05/11/18 14:09 Malaria parasites Not Reportable 05/11/18 14:09 James Bodies Not Reportable 05/11/18 14:09 Hem Pathologist Commnt No 05/11/18 14:09 PT 19.0 Sec. (12.2-14.9) H 05/14/18 05:20 INR 1.49 (0.87-1.13) H 05/14/18 05:20 APTT 30.3 Sec. (24.2-36.6) 05/07/18 10:37 Sodium 143 mmol/L (137-145) 05/14/18 05:20 Potassium 3.8 mmol/L (3.6-5.0) 05/14/18 05:20 Chloride 114.1 mmol/L (98-107) H 05/14/18 05:20 Carbon Dioxide 20 mmol/L (22-30) L 05/14/18 05:20 Anion Gap 13 mmol/L 05/14/18 05:20 BUN 22 mg/dL (9-20) H 05/14/18 05:20 Creatinine 1.2 mg/dL (0.8-1.5) 05/14/18 05:20 Estimated GFR > 60 ml/min 05/14/18 05:20 BUN/Creatinine Ratio 18 % 05/14/18 05:20 Glucose 183 mg/dL (75-100) H 05/14/18 05:20 POC Glucose 154 (70-105) H 05/14/18 00:01 Hemoglobin A1c 7.6 % (4-6) H 05/08/18 03:15 Lactic Acid 1.60 mmol/L (0.7-2.0) 05/07/18 13:21 Calcium 7.1 mg/dL (8.4-10.2) L 05/14/18 05:20 Phosphorus 3.60 mg/dL (2.5-4.5) 05/09/18 01:00 Magnesium 2.30 mg/dL (1.7-2.3) 05/12/18 08:41 Total Bilirubin 0.50 mg/dL (0.1-1.2) 05/12/18 08:41 AST 15 units/L (5-40) 05/12/18 08:41 ALT 7 units/L (7-56) 05/12/18 08:41 Alkaline Phosphatase 106 units/L (35-129) 05/12/18 08:41 Total Protein 5.5 g/dL (6.3-8.2) L 05/12/18 08:41 Albumin 1.3 g/dL (3.9-5) L 05/12/18 08:41 Albumin/Globulin Ratio 0.3 % 05/12/18 08:41 Urine Color Yellow (Yellow) 05/07/18 12:20 Urine Turbidity Clear (Clear) 05/07/18 12:20 Urine pH 5.0 (5.0-7.0) 05/07/18 12:20 Ur Specific [place] 1.012 (1.003-1.030) 05/07/18 12:20 Urine Protein <15 mg/dl mg/dL (Negative) 05/07/18 12:20 Urine Glucose (UA) Neg mg/dL (Negative) 05/07/18 12:20 Urine Ketones Tr mg/dL (Negative) 05/07/18 12:20 Urine Blood Sm (Negative) 05/07/18 12:20 Urine Nitrite Neg (Negative) 05/07/18 12:20 Urine Bilirubin Neg (Negative) 05/07/18 12:20 Urine Urobilinogen < 2.0 mg/dL (<2.0) 05/07/18 12:20 Ur Leukocyte Esterase Neg (Negative) 05/07/18 12:20 Urine WBC (Auto) 3.0 /HPF (0.0-6.0) 05/07/18 12:20 Urine RBC (Auto) 7.0 /HPF (0.0-6.0) 05/07/18 12:20 U Epithel Cells (Auto) < 1.0 /HPF (0-13.0) 05/07/18 12:20 Urine Bacteria (Auto) 1+ /HPF (Negative) 05/07/18 12:20 Urine Mucus Few /HPF 05/07/18 12:20 Influenza A (Rapid) Negative (Negative) 05/12/18 Unknown Influenza A (RT-PCR) Negative (Negative) 05/12/18 Unknown Influenza B (Rapid) Negative (Negative) 05/12/18 Unknown Influenza B (RT-PCR) Negative (Negative) 05/12/18 Unknown Nutrition/Malnutrition Assess - Dietary Evaluation Nutrition/Malnutrition Findings: Nutrition Notes Start: 05/08/18 09:32 Freq: Status: Active Protocol: Document 05/13/18 14:56 SA (Rec: 05/13/18 15:23 SA [id number]) Co-Sign 05/13/18 14:56 LP Nutrition Notes Need for Assessment generated from: MD Order Initial or Follow up Brief Note Current Diagnosis Coronary Artery Disease Diabetes Hypertension Respiratory Failure Stroke Hyperlipidemia Other Pertinent Diagnosis DVT, GERD, AMS Current Diet NPO Subjective/Other Information MD consulted for Write/Manage TF. PEG not placed. Dobhoff placed today. Percent of energy/protein needs met: 0%/0% Nutrition Intervention Nutrition Support: Glucerna 1.2 at 65 ml/hr. Water flush 100 ml/hr q 4 hr. Kcal 1,872 Protein (gm) 94 Fluid (mL) 1,255 Anticipated Discharge Needs: Unable to determine at this time Follow-Up By: 05/15/18 Additional Comments F/U: for TF tolerance
[2018-05-14] MEDS: ROCEPHIN/NS 1 GM/50 ML 1 GM/50 ML BAG IV SCH (15:30)
[2018-05-14] MEDS: SODIUM CHLORIDE FLUSH SYRINGE 10 ML IV SCH ×2 (15:31→22:32)
[2018-05-14] MEDS: D5W/0.45% NACL/KCL 10 MEQ 10 MEQ/1,000 ML BAG IV SCH (22:30)
[2018-05-14] MEDS: PRAVACHOL PO SCH (22:32)
[2018-05-15 05:45] LABS: BUN/Creatinine Ratio 18; Blood Urea Nitrogen 24 mg/dL (9-20); Calcium 7.4 mg/dL (8.4-10.2); Hemolysis Index 29
[2018-05-15 05:48] LABS: Basophils # (Auto) 0.1 K/mm3 (0.0-0.1); Basophils % (Auto) 0.6 % (0.0-1.8); Eosinophils # (Auto) 0.1 K/mm3 (0.0-0.4); Eosinophils % (Auto) 0.9 % (0.0-4.3); Hematocrit 25.7 % (35.5-45.6); Hemoglobin 8.1 gm/dl (11.8-15.2); Lymphocytes % (Auto) 9.3 % (13.4-35.0); Mean Corpuscular HGB Conc 32 % (32-34); Monocytes # (Auto) 0.5 K/mm3 (0.0-0.8); Monocytes % (Auto) 4.5 % (0.0-7.3); Red Blood Count 3.87 M/mm3 (3.65-5.03); Red Cell Distribution Width 19.5 % (13.2-15.2)
[2018-05-15 05:55] LABS: Mean Corpuscular Volume 67 fl (84-94); Platelet Count 237 K/mm3 (140-440)
[2018-05-15] MEDS: FLAGYL 500 MG/100 ML 500 MG/100 ML BAG IV SCH ×3 (06:13→22:44)
[2018-05-15] MEDS: ROCEPHIN/NS 1 GM/50 ML 1 GM/50 ML BAG IV SCH (09:54)
[2018-05-15] MEDS: SODIUM CHLORIDE FLUSH SYRINGE 10 ML IV SCH ×2 (09:55→22:44)
[2018-05-15] MEDS: FEOSOL PO SCH (10:00)
[2018-05-15] MEDS: PLAVIX PO SCH (10:00)
[2018-05-15] MEDS: PEPCID PO SCH (10:00)
[2018-05-15] MEDS: CARAFATE PO SCH (10:00)
--- NOTE | 2018-05-15 11:30 | Progress Note ---
Assessment and Plan Cultures: 05/07/18 Blood: no growth thus far 05/08/18: Urine: Jennifer albicans 05/12/18: Influenza PCR neg A/P: 78-year-old male past medical history of CVA, Type 2 diabetes, GERD, Asthma, Hyperlipedemia, Right total knee replacement, now admitted with: 1. SIRS vs Sepsis: noted mild leukocytosis and still tachycardia. Initially felt to be to be UTI however U/A was negative for a UTI, Urine culture is positive for Jennifer Albicans, Blood cultures show no growth thus far. Initial Chest xray shows no infilitrates. Influenza PCR negative. Received Cefepime for 5 days. Repeat CXR showed LLL aspiration pneumonia, now on ceftriaxone and flagyl. 2, Urinary Tract Infection: less likely, U/A is not consistent with a UTI, Urine culture is positive for Jennifer albicans, however this may be reflective of colonization, Indwelling [place] catheter placed 04/25/18 for urinary retention. 3. Acute encephalopathy: family states some confusion at home, currently not a baseline. Improving 4. Penicillin Allergy: anaphylactic reaction per family. Currently tolerating cephalosporin, continue to monitor closely. 5. Acute Respiratory Failure: Chest xray at bedside.Transferred to IM. Plan: - Continue Ceftriaxone and flagyl D2 - Aspiration precautions - Family refused PEG placement I am covering this weekend Vicky Maria MD Infectious Diseases Water Purifier Operator [facility] M [phone] O [phone] Subjective Date of service: 05/15/18 Principal diagnosis: UTI Interval history: Patient is more alert and interactive. No fever. Objective - Exam Narrative Exam: General appearance: sleepy but arousable in NAD, non conversant Eyes: anicteric sclerae, moist conjunctivae; no lid-lag; PERRLA HENT: Atraumatic; oropharynx clear with moist mucous membranes and no mucosal ulcerations/no oral thrush; normal hard and soft palate. Normal external ears. Neck: Trachea midline; supple, no thyromegaly or lymphadenopathy Lungs: Barrett rhonchi CV: RRR Abdomen: Soft, non-tender; no masses or hepatosplenomegaly Extremities: Barrett leg edema Skin: Normal temperature, turgor and texture; no rash, ulcers or subcutaneous nodules Psych: sleepy Neuro: sleepy non verbal - Constitutional Vitals: Vital Signs Temp Pulse Resp BP Pulse Ox 98.8 F 104 H 25 H 107/74 100 05/15/18 11:25 05/15/18 05:30 05/15/18 05:30 05/15/18 05:30 05/15/18 07:28 Temperature -Last 24 Hours Temperature 98.8 F Temperature 98.4 F Temperature 98.6 F Temperature 98.6 F Temperature 98.4 F Temperature 98.3 F - Labs CBC & Chem 7: 05/15/18 05:06 05/15/18 05:06 Labs: Abnormal lab results 05/14/18 05/14/18 05/15/18 Range/Units 10:36 22:30 05:06 WBC 11.2 H (4.5-11.0) K/mm3 Hgb 8.1 L (11.8-15.2) gm/dl Hct 25.7 L (35.5-45.6) % MCV 67 L (84-94) fl MCH 21 L (28-32) pg RDW 19.5 H (13.2-15.2) % Lymph % (Auto) 9.3 L (13.4-35.0) % Lymph # 1.0 L (1.2-5.4) K/mm3 Seg Neutrophils % 84.7 H (40.0-70.0) % Seg Neutrophils # 9.5 H (1.8-7.7) K/mm3 POC ABG pCO2 31.8 L (35-45) Chloride (98-107) mmol/L Carbon Dioxide (22-30) mmol/L BUN (9-20) mg/dL Glucose (75-100) mg/dL POC Glucose 165 H (70-105) Calcium (8.4-10.2) mg/dL 05/15/18 Range/Units 05:06 WBC (4.5-11.0) K/mm3 Hgb (11.8-15.2) gm/dl Hct (35.5-45.6) % MCV (84-94) fl MCH (28-32) pg RDW (13.2-15.2) % Lymph % (Auto) (13.4-35.0) % Lymph # (1.2-5.4) K/mm3 Seg Neutrophils % (40.0-70.0) % Seg Neutrophils # (1.8-7.7) K/mm3 POC ABG pCO2 (35-45) Chloride 115.6 H (98-107) mmol/L Carbon Dioxide 17 L (22-30) mmol/L BUN 24 H (9-20) mg/dL Glucose 144 H (75-100) mg/dL POC Glucose (70-105) Calcium 7.4 L (8.4-10.2) mg/dL
--- NOTE | 2018-05-15 13:02 | Progress Note ---
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 -cont aspiration precautions Hypokalemia -resolved s/p repletion, will monitor Severe protein calorie malnutrition -will hold tube feeding and restart dextrose IVF due to the aspiration -Guest Service Host following H/O CVA -cont supportive care Anemia of chronic dx -H/H stable -will cont to monitor and transfuse as needed Chronic urinary retention -durán catheter in place Physical deconditioning -cont fall precautions -PT/OT following DVT prophylaxis with SCD due to chronic anemia with high risk for bleed Disp: Pt's condition remains guarded with overall poor prognosis. cont management in the IMCU TIME SPENT: 35 MINUTES History Interval history: Family members reported that patient has significantly improved. According to them, he is now able to verbalize better. Hospitalist Physical - Constitutional Vitals: Temp Pulse Resp BP Pulse Ox 98.8 F 104 H 25 H 107/74 100 05/15/18 11:25 05/15/18 05:30 05/15/18 05:30 05/15/18 05:30 05/15/18 07:28 General appearance: Present: no acute distress - EENT Eyes: Present: PERRL, EOM intact ENT: hearing intact, clear oral mucosa - Neck Neck: Present: supple - Respiratory Respiratory effort: normal Respiratory: bilateral: CTA - Cardiovascular Rhythm: regular Heart Sounds: Present: S1 & S2 - Extremities Extremities: No edema - Abdominal General gastrointestinal: soft, non-tender, non-distended, normal bowel sounds - Neurologic Neurologic: other (patient was seen sleeping) Results - Labs CBC & Chem 7: 05/15/18 05:06 05/15/18 05:06 Labs: Laboratory Last Values WBC 11.2 K/mm3 (4.5-11.0) H 05/15/18 05:06 RBC 3.87 M/mm3 (3.65-5.03) 05/15/18 05:06 Hgb 8.1 gm/dl (11.8-15.2) L 05/15/18 05:06 Hct 25.7 % (35.5-45.6) L 05/15/18 05:06 MCV 67 fl (84-94) L 05/15/18 05:06 MCH 21 pg (28-32) L 05/15/18 05:06 MCHC 32 % (32-34) 05/15/18 05:06 RDW 19.5 % (13.2-15.2) H 05/15/18 05:06 Plt Count 237 K/mm3 (140-440) 05/15/18 05:06 Lymph % (Auto) 9.3 % (13.4-35.0) L 05/15/18 05:06 [place] % (Auto) 4.5 % (0.0-7.3) 05/15/18 05:06 Eos % (Auto) 0.9 % (0.0-4.3) 05/15/18 05:06 Baso % (Auto) 0.6 % (0.0-1.8) 05/15/18 05:06 Lymph # 1.0 K/mm3 (1.2-5.4) L 05/15/18 05:06 [place] # 0.5 K/mm3 (0.0-0.8) 05/15/18 05:06 Eos # 0.1 K/mm3 (0.0-0.4) 05/15/18 05:06 Baso # 0.1 K/mm3 (0.0-0.1) 05/15/18 05:06 Add Manual Diff Complete 05/11/18 14:09 Total Counted 100 05/11/18 14:09 Seg Neutrophils % 84.7 % (40.0-70.0) H 05/15/18 05:06 Seg Neuts % (Manual) 49.0 % (40.0-70.0) 05/11/18 14:09 Band Neutrophils % 0 % 05/11/18 14:09 Lymphocytes % (Manual) 45.0 % (13.4-35.0) H 05/11/18 14:09 Reactive Lymphs % (Man) 0 % 05/11/18 14:09 Monocytes % (Manual) 4.0 % (0.0-7.3) 05/11/18 14:09 Eosinophils % (Manual) 1.0 % (0.0-4.3) 05/11/18 14:09 Basophils % (Manual) 1.0 % (0.0-1.8) 05/11/18 14:09 Metamyelocytes % 0 % 05/11/18 14:09 Myelocytes % 0 % 05/11/18 14:09 Promyelocytes % 0 % 05/11/18 14:09 Blast Cells % 0 % 05/11/18 14:09 Nucleated RBC % Not Reportable 05/11/18 14:09 Seg Neutrophils # 9.5 K/mm3 (1.8-7.7) H 05/15/18 05:06 Seg Neutrophils # Man 6.0 K/mm3 (1.8-7.7) 05/11/18 14:09 Band Neutrophils # 0.0 K/mm3 05/11/18 14:09 Lymphocytes # (Manual) 5.5 K/mm3 (1.2-5.4) H 05/11/18 14:09 Abs React Lymphs (Man) 0.0 K/mm3 05/11/18 14:09 Monocytes # (Manual) 0.5 K/mm3 (0.0-0.8) 05/11/18 14:09 Eosinophils # (Manual) 0.1 K/mm3 (0.0-0.4) 05/11/18 14:09 Basophils # (Manual) 0.1 K/mm3 (0.0-0.1) 05/11/18 14:09 Metamyelocytes # 0.0 K/mm3 05/11/18 14:09 Myelocytes # 0.0 K/mm3 05/11/18 14:09 Promyelocytes # 0.0 K/mm3 05/11/18 14:09 Blast Cells # 0.0 K/mm3 05/11/18 14:09 WBC Morphology Not Reportable 05/11/18 14:09 Hypersegmented Neuts Not Reportable 05/11/18 14:09 Hyposegmented Neuts Not Reportable 05/11/18 14:09 Hypogranular Neuts Not Reportable 05/11/18 14:09 Smudge Cells Not Reportable 05/11/18 14:09 Toxic Granulation Not Reportable 05/11/18 14:09 Toxic Vacuolation Not Reportable 05/11/18 14:09 Dohle Bodies Not Reportable 05/11/18 14:09 Pelger-Huet Anomaly Not Reportable 05/11/18 14:09 Alba Rods Not Reportable 05/11/18 14:09 Platelet Estimate Consistent w auto 05/11/18 14:09 Clumped Platelets Not Reportable 05/11/18 14:09 Plt Clumps, EDTA Not Reportable 05/11/18 14:09 Large Platelets Not Reportable 05/11/18 14:09 Giant Platelets Not Reportable 05/11/18 14:09 Platelet Satelliting Not Reportable 05/11/18 14:09 Plt Morphology Comment Not Reportable 05/11/18 14:09 RBC Morphology Not Reportable 05/11/18 14:09 Dimorphic RBCs Not Reportable 05/11/18 14:09 Polychromasia Few 05/11/18 14:09 Hypochromasia Not Reportable 05/11/18 14:09 Poikilocytosis Not Reportable 05/11/18 14:09 Anisocytosis 1+ 05/11/18 14:09 Microcytosis Not Reportable 05/11/18 14:09 Macrocytosis Not Reportable 05/11/18 14:09 Spherocytes Not Reportable 05/11/18 14:09 Pappenheimer Bodies Not Reportable 05/11/18 14:09 Sickle Cells Not Reportable 05/11/18 14:09 Target Cells Not Reportable 05/11/18 14:09 Tear Drop Cells Not Reportable 05/11/18 14:09 Ovalocytes Not Reportable 05/11/18 14:09 Helmet Cells Not Reportable 05/11/18 14:09 Mccoy-Dinwiddie Bodies Not Reportable 05/11/18 14:09 [place] Rings Not Reportable 05/11/18 14:09 [place] Cells Not Reportable 05/11/18 14:09 Bite Cells Not Reportable 05/11/18 14:09 Crenated Cell Not Reportable 05/11/18 14:09 Elliptocytes Not Reportable 05/11/18 14:09 Acanthocytes (Spur) Not Reportable 05/11/18 14:09 Rouleaux Not Reportable 05/11/18 14:09 Hemoglobin C Crystals Not Reportable 05/11/18 14:09 Schistocytes Not Reportable 05/11/18 14:09 Malaria parasites Not Reportable 05/11/18 14:09 James Bodies Not Reportable 05/11/18 14:09 Hem Pathologist Commnt No 05/11/18 14:09 PT 19.0 Sec. (12.2-14.9) H 05/14/18 05:20 INR 1.49 (0.87-1.13) H 05/14/18 05:20 APTT 30.3 Sec. (24.2-36.6) 05/07/18 10:37 POC ABG pH 7.372 (7.35-7.45) 05/14/18 10:36 POC ABG pCO2 31.8 (35-45) L 05/14/18 10:36 POC ABG pO2 83 (80-105) 05/14/18 10:36 POC ABG HCO3 18.5 05/14/18 10:36 POC ABG Total CO2 05/14/18 10:36 POC ABG O2 Sat 96 05/14/18 10:36 POC ABG Base Excess -7 05/14/18 10:36 FiO2 21 % 05/14/18 10:36 Sodium 145 mmol/L (137-145) 05/15/18 05:06 Potassium 4.0 mmol/L (3.6-5.0) 05/15/18 05:06 Chloride 115.6 mmol/L (98-107) H 05/15/18 05:06 Carbon Dioxide 17 mmol/L (22-30) L 05/15/18 05:06 Anion Gap 16 mmol/L 05/15/18 05:06 BUN 24 mg/dL (9-20) H 05/15/18 05:06 Creatinine 1.3 mg/dL (0.8-1.5) 05/15/18 05:06 Estimated GFR > 60 ml/min 05/15/18 05:06 BUN/Creatinine Ratio 18 % 05/15/18 05:06 Glucose 144 mg/dL (75-100) H 05/15/18 05:06 POC Glucose 165 (70-105) H 05/14/18 22:30 Hemoglobin A1c 7.6 % (4-6) H 05/08/18 03:15 Lactic Acid 1.60 mmol/L (0.7-2.0) 05/07/18 13:21 Calcium 7.4 mg/dL (8.4-10.2) L 05/15/18 05:06 Phosphorus 3.60 mg/dL (2.5-4.5) 05/09/18 01:00 Magnesium 2.30 mg/dL (1.7-2.3) 05/12/18 08:41 Total Bilirubin 0.50 mg/dL (0.1-1.2) 05/12/18 08:41 AST 15 units/L (5-40) 05/12/18 08:41 ALT 7 units/L (7-56) 05/12/18 08:41 Alkaline Phosphatase 106 units/L (35-129) 05/12/18 08:41 Total Protein 5.5 g/dL (6.3-8.2) L 05/12/18 08:41 Albumin 1.3 g/dL (3.9-5) L 05/12/18 08:41 Albumin/Globulin Ratio 0.3 % 05/12/18 08:41 Urine Color Yellow (Yellow) 05/07/18 12:20 Urine Turbidity Clear (Clear) 05/07/18 12:20 Urine pH 5.0 (5.0-7.0) 05/07/18 12:20 Ur Specific [place] 1.012 (1.003-1.030) 05/07/18 12:20 Urine Protein <15 mg/dl mg/dL (Negative) 05/07/18 12:20 Urine Glucose (UA) Neg mg/dL (Negative) 05/07/18 12:20 Urine Ketones Tr mg/dL (Negative) 05/07/18 12:20 Urine Blood Sm (Negative) 05/07/18 12:20 Urine Nitrite Neg (Negative) 05/07/18 12:20 Urine Bilirubin Neg (Negative) 05/07/18 12:20 Urine Urobilinogen < 2.0 mg/dL (<2.0) 05/07/18 12:20 Ur Leukocyte Esterase Neg (Negative) 05/07/18 12:20 Urine WBC (Auto) 3.0 /HPF (0.0-6.0) 05/07/18 12:20 Urine RBC (Auto) 7.0 /HPF (0.0-6.0) 05/07/18 12:20 U Epithel Cells (Auto) < 1.0 /HPF (0-13.0) 05/07/18 12:20 Urine Bacteria (Auto) 1+ /HPF (Negative) 05/07/18 12:20 Urine Mucus Few /HPF 05/07/18 12:20 Influenza A (Rapid) Negative (Negative) 05/12/18 Unknown Influenza A (RT-PCR) Negative (Negative) 05/12/18 Unknown Influenza B (Rapid) Negative (Negative) 05/12/18 Unknown Influenza B (RT-PCR) Negative (Negative) 05/12/18 Unknown Nutrition/Malnutrition Assess - Dietary Evaluation Nutrition/Malnutrition Findings: Nutrition Notes Start: 05/08/18 09:32 Freq: Status: Active Protocol: Document 05/15/18 10:56 SA (Rec: 05/15/18 11:17 SA [id number]) Co-Sign 05/15/18 10:56 LP Nutrition Notes Initial or Follow up Reassessment Current Diagnosis Coronary Artery Disease Diabetes Hypertension Respiratory Failure Stroke Hyperlipidemia Other Pertinent Diagnosis DVT, GERD, AMS, Pneumonia Current Diet NPO Labs/Tests BUN: 24 Ca: 7.4 Pertinent Medications Reviewed Height 5 ft 6 in Weight 84.9 kg [place] Body Weight (kg) 64.54 BMI 30.2 Weight Status Obese Subjective/Other Information Per patient nurse, TF was running yesterday but doctor turned off late last night due to patient aspiration pneu. Percent of energy/protein needs met: 0%/0% Burn Absent Trauma Absent #1 Nutrition Diagnosis Inadequate oral intake As Evidenced by Signs and Symptoms patient family refusing PEG and problems with dobhoff Diagnosis Progress(for reassessment Worsened documentation) Is patient on ventilator? No Is Patient Ambulatory and/or Out of Bed No REE-([facility]-confined to bed) [phone] Calculation Used for Recommendations [facility] Additional Notes Protein needs: AdBW: 78 KG (1-1.2 g/kg) (78-94 g/day) Fluid needs: 1ml/ kcal Nutrition Intervention Change Diet Order: Advance as medically feasible Goal #1 Start TF or comfort care measures Anticipated Discharge Needs: Unable to determine at this time Follow-Up By: 05/19/18 Additional Comments F/U: POC
[2018-05-16] MEDS ORDERED: NACL 0.9% 1000 ML 250 ML IV ONE (00:10)
[2018-05-16] MEDS: PRAVACHOL PO SCH ×2 (00:35→22:44)
[2018-05-16] MEDS: CARAFATE PO SCH ×3 (00:35→22:44)
[2018-05-16] MEDS: FEOSOL PO SCH ×3 (00:35→22:44)
[2018-05-16] MEDS: FLAGYL 500 MG/100 ML 500 MG/100 ML BAG IV SCH ×3 (05:43→22:38)
[2018-05-16] MEDS: PEPCID PO SCH (10:08)
[2018-05-16] MEDS: ROCEPHIN/NS 1 GM/50 ML 1 GM/50 ML BAG IV SCH (10:23)
[2018-05-16] MEDS: D5W/0.45% NACL/KCL 10 MEQ 10 MEQ/1,000 ML BAG IV SCH (10:23)
[2018-05-16] MEDS: SODIUM CHLORIDE FLUSH SYRINGE 10 ML IV SCH ×2 (10:26→22:44)
[2018-05-16 10:59] LABS: Basophils % (Auto) 0.4 % (0.0-1.8); Eosinophils # (Auto) 0.1 K/mm3 (0.0-0.4); Eosinophils % (Auto) 0.7 % (0.0-4.3); Hemoglobin 7.5 gm/dl (11.8-15.2); Lymphocytes # (Auto) 1.1 K/mm3 (1.2-5.4); Lymphocytes % (Auto) 10.4 % (13.4-35.0); Mean Corpuscular HGB Conc 31 % (32-34); Monocytes # (Auto) 0.5 K/mm3 (0.0-0.8); Monocytes % (Auto) 4.5 % (0.0-7.3); Platelet Count 234 K/mm3 (140-440); Red Blood Count 3.55 M/mm3 (3.65-5.03)
[2018-05-16 11:06] LABS: Mean Corpuscular Volume 68 fl (84-94)
[2018-05-16 11:21] LABS: Calcium 7.4 mg/dL (8.4-10.2)
[2018-05-16] MEDS ORDERED: DULCOLAX PR PRN (13:02)
[2018-05-16] MEDS ORDERED: NACL 0.9% 500 ML 500 ML IV ONE (13:04)
[2018-05-16] MEDS ORDERED: NACL 0.45% 1000 ML 1,000 ML IV SCH (14:00)
--- NOTE | 2018-05-16 14:07 | Progress Note ---
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 -overall prognosis is poor -Head CT scan on 05/12/18 neg Oropharngeal dysphagia -Pt was evaluated again by the speech therapist and nothing by mouth was recommended -Family members now wants PEG tube to be placed. We'll reconsult GI. -cont aspiration precautions Hypokalemia -resolved s/p repletion, will monitor Hypernatremia -Likely secondary to dehydration -On IV fluid, will monitor Severe protein calorie malnutrition -will hold tube feeding and restart dextrose IVF due to the aspiration -Strawhat Sizer following DEVIN, likely prerenal azotemia -On IV fluid, will monitor creatinine level H/O CVA -cont supportive care Anemia of chronic dx -H/H stable -will cont to monitor and transfuse as needed Chronic urinary retention -cont durán catheter Physical deconditioning -cont fall precautions -PT/OT following DVT prophylaxis with SCD due to chronic anemia with high risk for bleed Disp: Pt's condition remains guarded with overall poor prognosis. cont management in the IMCU TIME SPENT: 35 MINUTES History Interval history: Family members reported that they noticed that the pt is uncomfortable probably due to constipation since he usually have bowel movement every day Hospitalist Physical - Constitutional Vitals: Temp Pulse Resp BP Pulse Ox 97.6 F 101 H 28 H 87/60 100 05/16/18 12:00 05/16/18 13:00 05/16/18 13:00 05/16/18 13:00 05/16/18 13:00 General appearance: Present: mild distress - EENT Eyes: Present: PERRL, EOM intact ENT: hearing intact, clear oral mucosa - Neck Neck: Present: supple - Respiratory Respiratory effort: other (mildly tachypneic) Respiratory: bilateral: CTA - Cardiovascular Rhythm: regular (tachycardia) Heart Sounds: Present: S1 & S2 - Extremities Extremities: No edema - Abdominal General gastrointestinal: soft, tender (epigastric), non-distended, normal bowel sounds - Neurologic Neurologic: other (Pt opens eyes to sternal rub but unable to verbalize) Results - Labs CBC & Chem 7: 05/16/18 10:25 05/16/18 10:25 Labs: Laboratory Last Values WBC 10.1 K/mm3 (4.5-11.0) 05/16/18 10:25 RBC 3.55 M/mm3 (3.65-5.03) L 05/16/18 10:25 Hgb 7.5 gm/dl (11.8-15.2) L 05/16/18 10:25 Hct 24.0 % (35.5-45.6) L 05/16/18 10:25 MCV 68 fl (84-94) L 05/16/18 10:25 MCH 21 pg (28-32) L 05/16/18 10:25 MCHC 31 % (32-34) L 05/16/18 10:25 RDW 20.0 % (13.2-15.2) H 05/16/18 10:25 Plt Count 234 K/mm3 (140-440) 05/16/18 10:25 Lymph % (Auto) 10.4 % (13.4-35.0) L 05/16/18 10:25 [place] % (Auto) 4.5 % (0.0-7.3) 05/16/18 10:25 Eos % (Auto) 0.7 % (0.0-4.3) 05/16/18 10:25 Baso % (Auto) 0.4 % (0.0-1.8) 05/16/18 10:25 Lymph # 1.1 K/mm3 (1.2-5.4) L 05/16/18 10:25 [place] # 0.5 K/mm3 (0.0-0.8) 05/16/18 10:25 Eos # 0.1 K/mm3 (0.0-0.4) 05/16/18 10:25 Baso # 0.0 K/mm3 (0.0-0.1) 05/16/18 10:25 Add Manual Diff Complete 05/11/18 14:09 Total Counted 100 05/11/18 14:09 Seg Neutrophils % 84.0 % (40.0-70.0) H 05/16/18 10:25 Seg Neuts % (Manual) 49.0 % (40.0-70.0) 05/11/18 14:09 Band Neutrophils % 0 % 05/11/18 14:09 Lymphocytes % (Manual) 45.0 % (13.4-35.0) H 05/11/18 14:09 Reactive Lymphs % (Man) 0 % 05/11/18 14:09 Monocytes % (Manual) 4.0 % (0.0-7.3) 05/11/18 14:09 Eosinophils % (Manual) 1.0 % (0.0-4.3) 05/11/18 14:09 Basophils % (Manual) 1.0 % (0.0-1.8) 05/11/18 14:09 Metamyelocytes % 0 % 05/11/18 14:09 Myelocytes % 0 % 05/11/18 14:09 Promyelocytes % 0 % 05/11/18 14:09 Blast Cells % 0 % 05/11/18 14:09 Nucleated RBC % Not Reportable 05/11/18 14:09 Seg Neutrophils # 8.5 K/mm3 (1.8-7.7) H 05/16/18 10:25 Seg Neutrophils # Man 6.0 K/mm3 (1.8-7.7) 05/11/18 14:09 Band Neutrophils # 0.0 K/mm3 05/11/18 14:09 Lymphocytes # (Manual) 5.5 K/mm3 (1.2-5.4) H 05/11/18 14:09 Abs React Lymphs (Man) 0.0 K/mm3 05/11/18 14:09 Monocytes # (Manual) 0.5 K/mm3 (0.0-0.8) 05/11/18 14:09 Eosinophils # (Manual) 0.1 K/mm3 (0.0-0.4) 05/11/18 14:09 Basophils # (Manual) 0.1 K/mm3 (0.0-0.1) 05/11/18 14:09 Metamyelocytes # 0.0 K/mm3 05/11/18 14:09 Myelocytes # 0.0 K/mm3 05/11/18 14:09 Promyelocytes # 0.0 K/mm3 05/11/18 14:09 Blast Cells # 0.0 K/mm3 05/11/18 14:09 WBC Morphology Not Reportable 05/11/18 14:09 Hypersegmented Neuts Not Reportable 05/11/18 14:09 Hyposegmented Neuts Not Reportable 05/11/18 14:09 Hypogranular Neuts Not Reportable 05/11/18 14:09 Smudge Cells Not Reportable 05/11/18 14:09 Toxic Granulation Not Reportable 05/11/18 14:09 Toxic Vacuolation Not Reportable 05/11/18 14:09 Dohle Bodies Not Reportable 05/11/18 14:09 Pelger-Huet Anomaly Not Reportable 05/11/18 14:09 Alba Rods Not Reportable 05/11/18 14:09 Platelet Estimate Consistent w auto 05/11/18 14:09 Clumped Platelets Not Reportable 05/11/18 14:09 Plt Clumps, EDTA Not Reportable 05/11/18 14:09 Large Platelets Not Reportable 05/11/18 14:09 Giant Platelets Not Reportable 05/11/18 14:09 Platelet Satelliting Not Reportable 05/11/18 14:09 Plt Morphology Comment Not Reportable 05/11/18 14:09 RBC Morphology Not Reportable 05/11/18 14:09 Dimorphic RBCs Not Reportable 05/11/18 14:09 Polychromasia Few 05/11/18 14:09 Hypochromasia Not Reportable 05/11/18 14:09 Poikilocytosis Not Reportable 05/11/18 14:09 Anisocytosis 1+ 05/11/18 14:09 Microcytosis Not Reportable 05/11/18 14:09 Macrocytosis Not Reportable 05/11/18 14:09 Spherocytes Not Reportable 05/11/18 14:09 Pappenheimer Bodies Not Reportable 05/11/18 14:09 Sickle Cells Not Reportable 05/11/18 14:09 Target Cells Not Reportable 05/11/18 14:09 Tear Drop Cells Not Reportable 05/11/18 14:09 Ovalocytes Not Reportable 05/11/18 14:09 Helmet Cells Not Reportable 05/11/18 14:09 [place] Bodies Not Reportable 05/11/18 14:09 [place] Rings Not Reportable 05/11/18 14:09 [place] Cells Not Reportable 05/11/18 14:09 Bite Cells Not Reportable 05/11/18 14:09 Crenated Cell Not Reportable 05/11/18 14:09 Elliptocytes Not Reportable 05/11/18 14:09 Acanthocytes (Spur) Not Reportable 05/11/18 14:09 Rouleaux Not Reportable 05/11/18 14:09 Hemoglobin C Crystals Not Reportable 05/11/18 14:09 Schistocytes Not Reportable 05/11/18 14:09 Malaria parasites Not Reportable 05/11/18 14:09 James Bodies Not Reportable 05/11/18 14:09 Hem Pathologist Commnt No 05/11/18 14:09 PT 19.0 Sec. (12.2-14.9) H 05/14/18 05:20 INR 1.49 (0.87-1.13) H 05/14/18 05:20 APTT 30.3 Sec. (24.2-36.6) 05/07/18 10:37 POC ABG pH 7.372 (7.35-7.45) 05/14/18 10:36 POC ABG pCO2 31.8 (35-45) L 05/14/18 10:36 POC ABG pO2 83 (80-105) 05/14/18 10:36 POC ABG HCO3 18.5 05/14/18 10:36 POC ABG Total CO2 19 05/14/18 10:36 POC ABG O2 Sat 96 05/14/18 10:36 POC ABG Base Excess -7 05/14/18 10:36 FiO2 21 % 05/14/18 10:36 Sodium 147 mmol/L (137-145) H 05/16/18 10:25 Potassium 4.0 mmol/L (3.6-5.0) 05/16/18 10:25 Chloride 118.3 mmol/L (98-107) H 05/16/18 10:25 Carbon Dioxide 18 mmol/L (22-30) L 05/16/18 10:25 Anion Gap 15 mmol/L 05/16/18 10:25 BUN 28 mg/dL (9-20) H 05/16/18 10:25 Creatinine 1.6 mg/dL (0.8-1.5) H 05/16/18 10:25 Estimated GFR 51 ml/min 05/16/18 10:25 BUN/Creatinine Ratio 18 % 05/16/18 10:25 Glucose 121 mg/dL (75-100) H 05/16/18 10:25 POC Glucose 127 (70-105) H 05/16/18 12:06 Hemoglobin A1c 7.6 % (4-6) H 05/08/18 03:15 Lactic Acid 1.60 mmol/L (0.7-2.0) 05/07/18 13:21 Calcium 7.4 mg/dL (8.4-10.2) L 05/16/18 10:25 Phosphorus 3.60 mg/dL (2.5-4.5) 05/09/18 01:00 Magnesium 2.30 mg/dL (1.7-2.3) 05/12/18 08:41 Total Bilirubin 0.50 mg/dL (0.1-1.2) 05/12/18 08:41 AST 15 units/L (5-40) 05/12/18 08:41 ALT 7 units/L (7-56) 05/12/18 08:41 Alkaline Phosphatase 106 units/L (35-129) 05/12/18 08:41 Total Protein 5.5 g/dL (6.3-8.2) L 05/12/18 08:41 Albumin 1.3 g/dL (3.9-5) L 05/12/18 08:41 Albumin/Globulin Ratio 0.3 % 05/12/18 08:41 Urine Color Yellow (Yellow) 05/07/18 12:20 Urine Turbidity Clear (Clear) 05/07/18 12:20 Urine pH 5.0 (5.0-7.0) 05/07/18 12:20 Ur Specific [place] 1.012 (1.003-1.030) 05/07/18 12:20 Urine Protein <15 mg/dl mg/dL (Negative) 05/07/18 12:20 Urine Glucose (UA) Neg mg/dL (Negative) 05/07/18 12:20 Urine Ketones Tr mg/dL (Negative) 05/07/18 12:20 Urine Blood Sm (Negative) 05/07/18 12:20 Urine Nitrite Neg (Negative) 05/07/18 12:20 Urine Bilirubin Neg (Negative) 05/07/18 12:20 Urine Urobilinogen < 2.0 mg/dL (<2.0) 05/07/18 12:20 Ur Leukocyte Esterase Neg (Negative) 05/07/18 12:20 Urine WBC (Auto) 3.0 /HPF (0.0-6.0) 05/07/18 12:20 Urine RBC (Auto) 7.0 /HPF (0.0-6.0) 05/07/18 12:20 U Epithel Cells (Auto) < 1.0 /HPF (0-13.0) 05/07/18 12:20 Urine Bacteria (Auto) 1+ /HPF (Negative) 05/07/18 12:20 Urine Mucus Few /HPF 05/07/18 12:20 Influenza A (Rapid) Negative (Negative) 05/12/18 Unknown Influenza A (RT-PCR) Negative (Negative) 05/12/18 Unknown Influenza B (Rapid) Negative (Negative) 05/12/18 Unknown Influenza B (RT-PCR) Negative (Negative) 05/12/18 Unknown Nutrition/Malnutrition Assess - Dietary Evaluation Nutrition/Malnutrition Findings: Nutrition Notes Start: 05/08/18 09:32 Freq: Status: Active Protocol: Document 05/15/18 10:56 SA (Rec: 05/15/18 11:17 [id number]) Co-Sign 05/15/18 10:56 LP Nutrition Notes Initial or Follow up Reassessment Current Diagnosis Coronary Artery Disease Diabetes Hypertension Respiratory Failure Stroke Hyperlipidemia Other Pertinent Diagnosis DVT, GERD, AMS, Pneumonia Current Diet NPO Labs/Tests BUN: 24 Ca: 7.4 Pertinent Medications Reviewed Height 5 ft 6 in Weight 84.9 kg [place] Body Weight (kg) 64.54 BMI 30.2 Weight Status Obese Subjective/Other Information Per patient nurse, TF was running yesterday but doctor turned off late last night due to patient aspiration pneu. Percent of energy/protein needs met: 0%/0% Burn Absent Trauma Absent #1 Nutrition Diagnosis Inadequate oral intake As Evidenced by Signs and Symptoms patient family refusing PEG and problems with dobhoff Diagnosis Progress(for reassessment Worsened documentation) Is patient on ventilator? No Is Patient Ambulatory and/or Out of Bed No REE-([facility]-confined to bed) 5099.734 Calculation Used for Recommendations [facility] Additional Notes Protein needs: AdBW: 78 KG (1-1.2 g/kg) (78-94 g/day) Fluid needs: 1ml/ kcal Nutrition Intervention Change Diet Order: Advance as medically feasible Goal #1 Start TF or comfort care measures Anticipated Discharge Needs: Unable to determine at this time Follow-Up By: 05/19/18 Additional Comments F/U: POC
[2018-05-16] MEDS: PROTONIX IV SCH (18:48)
[2018-05-17] MEDS: FLAGYL 500 MG/100 ML 500 MG/100 ML BAG IV SCH ×3 (05:32→22:33)
[2018-05-17] MEDS: ROCEPHIN/NS 1 GM/50 ML 1 GM/50 ML BAG IV SCH (10:10)
[2018-05-17] MEDS: PROTONIX IV SCH (10:10)
[2018-05-17 10:50] LABS: Basophils % (Auto) 0.4 % (0.0-1.8); Eosinophils # (Auto) 0.1 K/mm3 (0.0-0.4); Eosinophils % (Auto) 0.9 % (0.0-4.3); Hematocrit 23.5 % (35.5-45.6); Hemoglobin 7.3 gm/dl (11.8-15.2); Lymphocytes # (Auto) 1.1 K/mm3 (1.2-5.4); Lymphocytes % (Auto) 11.3 % (13.4-35.0); Mean Corpuscular HGB Conc 31 % (32-34); Monocytes # (Auto) 0.5 K/mm3 (0.0-0.8); Monocytes % (Auto) 5.4 % (0.0-7.3); Platelet Count 261 K/mm3 (140-440); Red Blood Count 3.46 M/mm3 (3.65-5.03); Red Cell Distribution Width 19.5 % (13.2-15.2)
[2018-05-17 10:51] LABS: Mean Corpuscular Volume 68 fl (84-94)
[2018-05-17 11:08] LABS: Calcium 7.4 mg/dL (8.4-10.2)
--- NOTE | 2018-05-17 12:31 | Progress Note ---
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 -overall prognosis is poor -Head CT scan on 05/12/18 neg Oropharngeal dysphagia -Pt was evaluated again by the speech therapist and nothing by mouth was recommended -Family members now wants PEG tube to be placed after refusing it previously. GI has been re-consulted. -cont aspiration precautions Hypokalemia -resolved s/p repletion, will monitor Hypernatremia -Likely secondary to dehydration -IVF changed to D/W, will monitor Severe protein calorie malnutrition -tube feeding via dobhoff discontinued due to aspiration -cont dextrose IVF -Sawmill Worker following Bilateral LE edema -will do venous doppler to assess for DVT DEVIN, likely prerenal azotemia -On IV fluid, will monitor creatinine level -Consider nephrology consult if renal function worsens H/O CVA -cont supportive care Anemia of chronic dx -H/H stable -will cont to monitor and transfuse as needed Chronic urinary retention -cont durán catheter Physical deconditioning -cont fall precautions -PT/OT following DVT prophylaxis with SCD due to chronic anemia with high risk for bleed Disp: Pt's condition remains guarded with overall poor prognosis. cont aleksander brooke in the IMCU TIME SPENT: 35 MINUTES History Interval history: Family members reported bilateral UE/LE swelling. Hospitalist Physical - Constitutional Vitals: Temp Pulse Resp BP Pulse Ox 98.1 F 102 H 28 H 108/57 100 05/17/18 08:00 05/17/18 06:01 05/17/18 06:01 05/17/18 06:01 05/17/18 08:25 General appearance: Present: mild distress, other (awake and unresponsive) - EENT Eyes: Present: PERRL, EOM intact ENT: hearing intact, clear oral mucosa - Neck Neck: Present: supple - Respiratory Respiratory effort: other (mildly tachypneic) Respiratory: bilateral: rales - Cardiovascular Rhythm: regular Heart Sounds: Present: S1 & S2 - Extremities Extremity abnormal: other (edema in bilateral upper and lower extremities) - Abdominal General gastrointestinal: soft, non-tender, non-distended, normal bowel sounds - Neurologic Neurologic: other (awake and unresponsive) Results - Labs CBC & Chem 7: 05/17/18 09:16 05/17/18 09:16 Labs: Laboratory Last Values WBC 9.9 K/mm3 (4.5-11.0) 05/17/18 09:16 RBC 3.46 M/mm3 (3.65-5.03) L 05/17/18 09:16 Hgb 7.3 gm/dl (11.8-15.2) L 05/17/18 09:16 Hct 23.5 % (35.5-45.6) L 05/17/18 09:16 MCV 68 fl (84-94) L 05/17/18 09:16 MCH 21 pg (28-32) L 05/17/18 09:16 MCHC 31 % (32-34) L 05/17/18 09:16 RDW 19.5 % (13.2-15.2) H 05/17/18 09:16 Plt Count 261 K/mm3 (140-440) 05/17/18 09:16 Lymph % (Auto) 11.3 % (13.4-35.0) L 05/17/18 09:16 [place] % (Auto) 5.4 % (0.0-7.3) 05/17/18 09:16 Eos % (Auto) 0.9 % (0.0-4.3) 05/17/18 09:16 Baso % (Auto) 0.4 % (0.0-1.8) 05/17/18 09:16 Lymph # 1.1 K/mm3 (1.2-5.4) L 05/17/18 09:16 [place] # 0.5 K/mm3 (0.0-0.8) 05/17/18 09:16 Eos # 0.1 K/mm3 (0.0-0.4) 05/17/18 09:16 Baso # 0.0 K/mm3 (0.0-0.1) 05/17/18 09:16 Add Manual Diff Complete 05/11/18 14:09 Total Counted 100 05/11/18 14:09 Seg Neutrophils % 82.0 % (40.0-70.0) H 05/17/18 09:16 Seg Neuts % (Manual) 49.0 % (40.0-70.0) 05/11/18 14:09 Band Neutrophils % 0 % 05/11/18 14:09 Lymphocytes % (Manual) 45.0 % (13.4-35.0) H 05/11/18 14:09 Reactive Lymphs % (Man) 0 % 05/11/18 14:09 Monocytes % (Manual) 4.0 % (0.0-7.3) 05/11/18 14:09 Eosinophils % (Manual) 1.0 % (0.0-4.3) 05/11/18 14:09 Basophils % (Manual) 1.0 % (0.0-1.8) 05/11/18 14:09 Metamyelocytes % 0 % 05/11/18 14:09 Myelocytes % 0 % 05/11/18 14:09 Promyelocytes % 0 % 05/11/18 14:09 Blast Cells % 0 % 05/11/18 14:09 Nucleated RBC % Not Reportable 05/11/18 14:09 Seg Neutrophils # 8.1 K/mm3 (1.8-7.7) H 05/17/18 09:16 Seg Neutrophils # Man 6.0 K/mm3 (1.8-7.7) 05/11/18 14:09 Band Neutrophils # 0.0 K/mm3 05/11/18 14:09 Lymphocytes # (Manual) 5.5 K/mm3 (1.2-5.4) H 05/11/18 14:09 Abs React Lymphs (Man) 0.0 K/mm3 05/11/18 14:09 Monocytes # (Manual) 0.5 K/mm3 (0.0-0.8) 05/11/18 14:09 Eosinophils # (Manual) 0.1 K/mm3 (0.0-0.4) 05/11/18 14:09 Basophils # (Manual) 0.1 K/mm3 (0.0-0.1) 05/11/18 14:09 Metamyelocytes # 0.0 K/mm3 05/11/18 14:09 Myelocytes # 0.0 K/mm3 05/11/18 14:09 Promyelocytes # 0.0 K/mm3 05/11/18 14:09 Blast Cells # 0.0 K/mm3 05/11/18 14:09 WBC Morphology Not Reportable 05/11/18 14:09 Hypersegmented Neuts Not Reportable 05/11/18 14:09 Hyposegmented Neuts Not Reportable 05/11/18 14:09 Hypogranular Neuts Not Reportable 05/11/18 14:09 Smudge Cells Not Reportable 05/11/18 14:09 Toxic Granulation Not Reportable 05/11/18 14:09 Toxic Vacuolation Not Reportable 05/11/18 14:09 Dohle Bodies Not Reportable 05/11/18 14:09 Pelger-Huet Anomaly Not Reportable 05/11/18 14:09 Alba Rods Not Reportable 05/11/18 14:09 Platelet Estimate Consistent w auto 05/11/18 14:09 Clumped Platelets Not Reportable 05/11/18 14:09 Plt Clumps, EDTA Not Reportable 05/11/18 14:09 Large Platelets Not Reportable 05/11/18 14:09 Giant Platelets Not Reportable 05/11/18 14:09 Platelet Satelliting Not Reportable 05/11/18 14:09 Plt Morphology Comment Not Reportable 05/11/18 14:09 RBC Morphology Not Reportable 05/11/18 14:09 Dimorphic RBCs Not Reportable 05/11/18 14:09 Polychromasia Few 05/11/18 14:09 Hypochromasia Not Reportable 05/11/18 14:09 Poikilocytosis Not Reportable 05/11/18 14:09 Anisocytosis 1+ 05/11/18 14:09 Microcytosis Not Reportable 05/11/18 14:09 Macrocytosis Not Reportable 05/11/18 14:09 Spherocytes Not Reportable 05/11/18 14:09 Pappenheimer Bodies Not Reportable 05/11/18 14:09 Sickle Cells Not Reportable 05/11/18 14:09 Target Cells Not Reportable 05/11/18 14:09 Tear Drop Cells Not Reportable 05/11/18 14:09 Ovalocytes Not Reportable 05/11/18 14:09 Helmet Cells Not Reportable 05/11/18 14:09 [place] Bodies Not Reportable 05/11/18 14:09 [place] Rings Not Reportable 05/11/18 14:09 [place] Cells Not Reportable 05/11/18 14:09 Bite Cells Not Reportable 05/11/18 14:09 Crenated Cell Not Reportable 05/11/18 14:09 Elliptocytes Not Reportable 05/11/18 14:09 Acanthocytes (Spur) Not Reportable 05/11/18 14:09 Rouleaux Not Reportable 05/11/18 14:09 Hemoglobin C Crystals Not Reportable 05/11/18 14:09 Schistocytes Not Reportable 05/11/18 14:09 Malaria parasites Not Reportable 05/11/18 14:09 James Bodies Not Reportable 05/11/18 14:09 Hem Pathologist Commnt No 05/11/18 14:09 PT 19.0 Sec. (12.2-14.9) H 05/14/18 05:20 INR 1.49 (0.87-1.13) H 05/14/18 05:20 APTT 30.3 Sec. (24.2-36.6) 05/07/18 10:37 POC ABG pH 7.372 (7.35-7.45) 05/14/18 10:36 POC ABG pCO2 31.8 (35-45) L 05/14/18 10:36 POC ABG pO2 83 (80-105) 05/14/18 10:36 POC ABG HCO3 18.5 05/14/18 10:36 POC ABG Total CO2 19 05/14/18 10:36 POC ABG O2 Sat 96 05/14/18 10:36 POC ABG Base Excess -7 05/14/18 10:36 FiO2 21 % 05/14/18 10:36 Sodium 149 mmol/L (137-145) H 05/17/18 09:16 Potassium 4.2 mmol/L (3.6-5.0) 05/17/18 09:16 Chloride 119.6 mmol/L (98-107) H 05/17/18 09:16 Carbon Dioxide 19 mmol/L (22-30) L 05/17/18 09:16 Anion Gap 15 mmol/L 05/17/18 09:16 BUN 31 mg/dL (9-20) H 05/17/18 09:16 Creatinine 1.8 mg/dL (0.8-1.5) H 05/17/18 09:16 Estimated GFR 44 ml/min 05/17/18 09:16 BUN/Creatinine Ratio 17 % 05/17/18 09:16 Glucose 102 mg/dL (75-100) H 05/17/18 09:16 POC Glucose 125 (70-105) H 05/17/18 06:08 Hemoglobin A1c 7.6 % (4-6) H 05/08/18 03:15 Lactic Acid 1.60 mmol/L (0.7-2.0) 05/07/18 13:21 Calcium 7.4 mg/dL (8.4-10.2) L 05/17/18 09:16 Phosphorus 3.60 mg/dL (2.5-4.5) 05/09/18 01:00 Magnesium 2.30 mg/dL (1.7-2.3) 05/12/18 08:41 Total Bilirubin 0.50 mg/dL (0.1-1.2) 05/12/18 08:41 AST 15 units/L (5-40) 05/12/18 08:41 ALT 7 units/L (7-56) 05/12/18 08:41 Alkaline Phosphatase 106 units/L (35-129) 05/12/18 08:41 Total Protein 5.5 g/dL (6.3-8.2) L 05/12/18 08:41 Albumin 1.3 g/dL (3.9-5) L 05/12/18 08:41 Albumin/Globulin Ratio 0.3 % 05/12/18 08:41 Urine Color Yellow (Yellow) 05/07/18 12:20 Urine Turbidity Clear (Clear) 05/07/18 12:20 Urine pH 5.0 (5.0-7.0) 05/07/18 12:20 Ur Specific [place] 1.012 (1.003-1.030) 05/07/18 12:20 Urine Protein <15 mg/dl mg/dL (Negative) 05/07/18 12:20 Urine Glucose (UA) Neg mg/dL (Negative) 05/07/18 12:20 Urine Ketones Tr mg/dL (Negative) 05/07/18 12:20 Urine Blood Sm (Negative) 05/07/18 12:20 Urine Nitrite Neg (Negative) 05/07/18 12:20 Urine Bilirubin Neg (Negative) 05/07/18 12:20 Urine Urobilinogen < 2.0 mg/dL (<2.0) 05/07/18 12:20 Ur Leukocyte Esterase Neg (Negative) 05/07/18 12:20 Urine WBC (Auto) 3.0 /HPF (0.0-6.0) 05/07/18 12:20 Urine RBC (Auto) 7.0 /HPF (0.0-6.0) 05/07/18 12:20 U Epithel Cells (Auto) < 1.0 /HPF (0-13.0) 05/07/18 12:20 Urine Bacteria (Auto) 1+ /HPF (Negative) 05/07/18 12:20 Urine Mucus Few /HPF 05/07/18 12:20 Influenza A (Rapid) Negative (Negative) 05/12/18 Unknown Influenza A (RT-PCR) Negative (Negative) 05/12/18 Unknown Influenza B (Rapid) Negative (Negative) 05/12/18 Unknown Influenza B (RT-PCR) Negative (Negative) 05/12/18 Unknown Nutrition/Malnutrition Assess - Dietary Evaluation Nutrition/Malnutrition Findings: Nutrition Notes Start: 05/08/18 09:32 Freq: Status: Active Protocol: Document 05/15/18 10:56 SA (Rec: 05/15/18 11:17 SA [id number]) Co-Sign 05/15/18 10:56 LP Nutrition Notes Initial or Follow up Reassessment Current Diagnosis Coronary Artery Disease Diabetes Hypertension Respiratory Failure Stroke Hyperlipidemia Other Pertinent Diagnosis DVT, GERD, AMS, Pneumonia Current Diet NPO Labs/Tests BUN: 24 Ca: 7.4 Pertinent Medications Reviewed Height 5 ft 6 in Weight 84.9 kg [place] Body Weight (kg) 64.54 BMI 30.2 Weight Status Obese Subjective/Other Information Per patient nurse, TF was running yesterday but doctor turned off late last night due to patient aspiration pneu. Percent of energy/protein needs met: 0%/0% Burn Absent Trauma Absent #1 Nutrition Diagnosis Inadequate oral intake As Evidenced by Signs and Symptoms patient family refusing PEG and problems with dobhoff Diagnosis Progress(for reassessment Worsened documentation) Is patient on ventilator? No Is Patient Ambulatory and/or Out of Bed No REE-([facility]-confined to bed) 4216.045 Calculation Used for Recommendations [facility] Additional Notes Protein needs: AdBW: 78 KG (1-1.2 g/kg) (78-94 g/day) Fluid needs: 1ml/ kcal Nutrition Intervention Change Diet Order: Advance as medically feasible Goal #1 Start TF or comfort care measures Anticipated Discharge Needs: Unable to determine at this time Follow-Up By: 05/19/18 Additional Comments F/U: POC
--- NOTE | 2018-05-17 15:31 | Progress Note ---
Assessment and Plan Cultures: 05/07/18 Blood: no growth thus far 05/08/18: Urine: Jennifer albicans 05/12/18: Influenza PCR neg A/P: 78-year-old male past medical history of CVA, Type 2 diabetes, GERD, Asthma, Hyperlipedemia, Right total knee replacement, now admitted with: 1. SIRS vs Sepsis: noted mild leukocytosis and still tachycardia. Initially felt to be to be UTI however U/A was negative for a UTI, Urine culture is positive for Jennifer Albicans, Blood cultures show no growth thus far. Initial Chest xray shows no infilitrates. Influenza PCR negative. Received Cefepime for 5 days. Repeat CXR showed LLL aspiration pneumonia, likely aspiration pneumonitis; now on ceftriaxone and flagyl. 2, Urinary Tract Infection: less likely, U/A is not consistent with a UTI, Urine culture is positive for Jennifer albicans, however this may be reflective of colonization, Indwelling Martinez catheter placed 04/25/18 for urinary retention. 3. Acute encephalopathy: family states some confusion at home, currently not a baseline. Improving 4. Penicillin Allergy: anaphylactic reaction per family. Currently tolerating cephalosporin, continue to monitor closely. 5. Acute Respiratory Failure: Chest xray at bedside.Transferred to IMCU. 6. DEVIN: creat 1.8 Plan: - monitor creatinine - Continue Ceftriaxone and flagyl D4 of 7 - Aspiration precautions - Family considering PEG placement will follow Vicky Maria MD Infectious Diseases [employer] [facility] ([facility]) M [phone] O [phone] Subjective Date of service: 05/17/18 Principal diagnosis: UTI Interval history: Patient is alert, talking and interactive. No fever. Objective - Exam Narrative Exam: General appearance: alert in NAD, conversant Eyes: anicteric sclerae, moist conjunctivae; no lid-lag; PERRLA HENT: Atraumatic; oropharynx clear with moist mucous membranes and no mucosal ulcerations/no oral thrush; normal hard and soft palate. Normal external ears. Neck: Trachea midline; supple, no thyromegaly or lymphadenopathy Lungs: Barrett rhonchi CV: RRR Abdomen: Soft, non-tender; no masses or hepatosplenomegaly Extremities: Barrett leg edema Skin: Normal temperature, turgor and texture; no rash, ulcers or subcutaneous nodules Psych: alert pleasant Neuro:alert moving all ext - Constitutional Vitals: Vital Signs Temp Pulse Resp BP Pulse Ox 98.1 F 102 H 28 H 108/57 100 05/17/18 08:00 05/17/18 06:01 05/17/18 06:01 05/17/18 06:01 05/17/18 08:25 Temperature -Last 24 Hours Temperature 98.1 F Temperature 97.6 F Temperature 97.8 F Temperature 98 F Temperature 98.1 F - Labs CBC & Chem 7: 05/17/18 09:16 05/17/18 09:16 Labs: Abnormal lab results 05/17/18 05/17/18 05/17/18 Range/Units 00:01 06:08 09:16 RBC 3.46 L (3.65-5.03) M/mm3 Hgb 7.3 L (11.8-15.2) gm/dl Hct 23.5 L (35.5-45.6) % MCV 68 L (84-94) fl MCH 21 L (28-32) pg MCHC 31 L (32-34) % RDW 19.5 H (13.2-15.2) % Lymph % (Auto) 11.3 L (13.4-35.0) % Lymph # 1.1 L (1.2-5.4) K/mm3 Seg Neutrophils % 82.0 H (40.0-70.0) % Seg Neutrophils # 8.1 H (1.8-7.7) K/mm3 Sodium (137-145) mmol/L Chloride (98-107) mmol/L Carbon Dioxide (22-30) mmol/L BUN (9-20) mg/dL Creatinine (0.8-1.5) mg/dL Glucose (75-100) mg/dL POC Glucose 111 H 125 H (70-105) Calcium (8.4-10.2) mg/dL 05/17/18 Range/Units 09:16 RBC (3.65-5.03) M/mm3 Hgb (11.8-15.2) gm/dl Hct (35.5-45.6) % MCV (84-94) fl MCH (28-32) pg MCHC (32-34) % RDW (13.2-15.2) % Lymph % (Auto) (13.4-35.0) % Lymph # (1.2-5.4) K/mm3 Seg Neutrophils % (40.0-70.0) % Seg Neutrophils # (1.8-7.7) K/mm3 Sodium 149 H (137-145) mmol/L Chloride 119.6 H (98-107) mmol/L Carbon Dioxide 19 L (22-30) mmol/L BUN 31 H (9-20) mg/dL Creatinine 1.8 H (0.8-1.5) mg/dL Glucose 102 H (75-100) mg/dL POC Glucose (70-105) Calcium 7.4 L (8.4-10.2) mg/dL
--- NOTE | 2018-05-17 15:34 | Vascular Lab Report ---
FINAL REPORT EXAM: VL VENOUS DUPLEX LE BILAT HISTORY: BLE edema TECHNIQUE: Grayscale and color and spectral Doppler ultrasound imaging of the bilateral lower extrem ities was performed for the purposes of assessing for deep venous thrombosis. PRIORS: Lower extremity venous Doppler from 04/21/2018. FINDINGS: No evidence of deep venous thrombosis is seen within the common femoral through the posterior tibial and peroneal veins. Normal compression and color flow is seen throughout the venous system of the bridget ateral lower extremities. Normal augmentation was seen. IMPRESSION: Negative for bilateral lower extremity deep venous thrombosis.
[2018-05-17] MEDS: PEPCID PO SCH (18:14)
[2018-05-17] MEDS: FEOSOL PO SCH ×2 (18:14→22:31)
[2018-05-17] MEDS: CARAFATE PO SCH ×2 (18:14→22:31)
[2018-05-17] MEDS: SODIUM CHLORIDE FLUSH SYRINGE 10 ML IV SCH ×2 (18:14→22:33)
[2018-05-17] MEDS: D10W 1,000 ML IV SCH (18:22)
[2018-05-17] MEDS: PRAVACHOL PO SCH (22:32)
[2018-05-18] MEDS: FLAGYL 500 MG/100 ML 500 MG/100 ML BAG IV SCH ×3 (05:51→22:17)
[2018-05-18 07:02] LABS: Basophils % (Auto) 0.3 % (0.0-1.8); Eosinophils # (Auto) 0.1 K/mm3 (0.0-0.4); Eosinophils % (Auto) 1.6 % (0.0-4.3); Hematocrit 21.2 % (35.5-45.6); Hemoglobin 6.5 gm/dl (11.8-15.2); Lymphocytes # (Auto) 0.9 K/mm3 (1.2-5.4); Lymphocytes % (Auto) 10.2 % (13.4-35.0); Mean Corpuscular HGB Conc 31 % (32-34); Mean Corpuscular Volume 70 fl (84-94); Monocytes # (Auto) 0.5 K/mm3 (0.0-0.8); Monocytes % (Auto) 5.4 % (0.0-7.3); Platelet Count 222 K/mm3 (140-440); Red Blood Count 3.01 M/mm3 (3.65-5.03)
[2018-05-18] MEDS ORDERED: NACL 0.9% 500 ML 500 ML IV NR (08:17)
[2018-05-18] MEDS: ROCEPHIN/NS 1 GM/50 ML 1 GM/50 ML BAG IV SCH (09:44)
[2018-05-18] MEDS: D10W 1,000 ML IV SCH (09:45)
[2018-05-18] MEDS: SODIUM CHLORIDE FLUSH SYRINGE 10 ML IV SCH (09:46)
[2018-05-18] MEDS: PROTONIX IV SCH (09:47)
--- NOTE | 2018-05-18 10:01 | Progress Note ---
Assessment and Plan Cultures: 05/07/18 Blood: no growth thus far 05/08/18: Urine: Jennifer albicans 05/12/18: Influenza PCR neg A/P: 78-year-old male past medical history of CVA, Type 2 diabetes, GERD, Asthma, Hyperlipedemia, Right total knee replacement, now admitted with: 1. SIRS vs Sepsis: noted fever at home, mild leukocytosis and tachycardia, Now all resolved. Initially felt to be to be UTI however U/A was negative for a UTI, Urine culture is positive for Jennifer Albicans, Blood cultures show no growth thus far. Initial Chest xray shows no infiltrates. Influenza PCR negative. Received Cefepime for 5 days. Repeat CXR showed LLL aspiration pneumonia, likely aspiration pneumonitis; now on ceftriaxone and flagyl. 2. ?Urinary Tract Infection: less likely, U/A is not consistent with a UTI, Urine culture is positive for Jennifer albicans, however this may be reflective of colonization, Indwelling Martinez catheter placed 04/25/18 for urinary retention. 3. Acute encephalopathy: family states some confusion at home, currently not a baseline. Improving 4. Penicillin Allergy: anaphylactic reaction per family. Currently tolerating cephalosporin, continue to monitor closely. 5. Acute Respiratory Failure: Chest xray at bedside.Transferred to IMCU. 6. DEVIN: creat 1.8 worsening Plan: - Renal consult - worsening leukocytosis - Continue Ceftriaxone and flagyl D5 of 7 - Aspiration precautions - Family considering PEG placement Extensive discussion with daughter regarding pathophysiology of aspiration pne umonia. She believes that it happened inhouse when NGT was placed, however I explained he came with SIRS and initial CXR/CT neg but later CXR showed LLL pneumonia likely consistent with aspiration pneumonia, which has been probably ongoing before admission due to dysphagia. will follow Vicky Maria MD Infectious Diseases [employer] [facility] ([facility]) M [phone] O [phone] Subjective Date of service: 05/18/18 Principal diagnosis: UTI Interval history: Patient is alert and interactive. No fever. ROS: limited due to dementia Objective - Exam Narrative Exam: General appearance: alert in NAD, conversant Eyes: anicteric sclerae, moist conjunctivae; no lid-lag; PERRLA HENT: Atraumatic; oropharynx clear with moist mucous membranes and no mucosal ulcerations/no oral thrush; normal hard and soft palate edentulous. Normal external ears. Neck: Trachea midline; supple, no thyromegaly or lymphadenopathy Lungs: Barrett scattered rhonchi CV: RRR Abdomen: Soft, non-tender; no masses or hepatosplenomegaly Extremities: Barrett leg edema Skin: Normal temperature, turgor and texture; no rash, ulcers or subcutaneous nodules Psych: alert pleasant Neuro:alert moving all ext - Constitutional Vitals: Vital Signs Temp Pulse Resp BP Pulse Ox 99 F 112 H 30 H 122/67 99 05/18/18 08:00 05/18/18 06:00 05/18/18 06:00 05/18/18 06:00 05/18/18 07:39 Temperature -Last 24 Hours Temperature 99 F Temperature 98.2 F Temperature 97.8 F Temperature 97.8 F Temperature 98.8 F - Labs CBC & Chem 7: 05/18/18 05:36 05/18/18 05:36 Labs: Abnormal lab results 05/17/18 05/17/18 05/17/18 Range/Units 09:16 09:16 11:56 RBC 3.46 L (3.65-5.03) M/mm3 Hgb 7.3 L (11.8-15.2) gm/dl Hct 23.5 L (35.5-45.6) % MCV 68 L (84-94) fl MCH 21 L (28-32) pg MCHC 31 L (32-34) % RDW 19.5 H (13.2-15.2) % Lymph % (Auto) 11.3 L (13.4-35.0) % Lymph # 1.1 L (1.2-5.4) K/mm3 Seg Neutrophils % 82.0 H (40.0-70.0) % Seg Neutrophils # 8.1 H (1.8-7.7) K/mm3 Sodium 149 H (137-145) mmol/L Chloride 119.6 H (98-107) mmol/L Carbon Dioxide 19 L (22-30) mmol/L BUN 31 H (9-20) mg/dL Creatinine 1.8 H (0.8-1.5) mg/dL Glucose 102 H (75-100) mg/dL POC Glucose 111 H (70-105) Calcium 7.4 L (8.4-10.2) mg/dL 05/17/18 05/18/18 05/18/18 Range/Units 23:24 05:03 05:36 RBC (3.65-5.03) M/mm3 Hgb (11.8-15.2) gm/dl Hct (35.5-45.6) % MCV (84-94) fl MCH (28-32) pg MCHC (32-34) % RDW (13.2-15.2) % Lymph % (Auto) (13.4-35.0) % Lymph # (1.2-5.4) K/mm3 Seg Neutrophils % (40.0-70.0) % Seg Neutrophils # (1.8-7.7) K/mm3 Sodium (137-145) mmol/L Chloride 118.9 H (98-107) mmol/L Carbon Dioxide 17 L (22-30) mmol/L BUN 32 H (9-20) mg/dL Creatinine 2.2 H (0.8-1.5) mg/dL Glucose 176 H (75-100) mg/dL POC Glucose 159 H 217 H (70-105) Calcium 7.0 L (8.4-10.2) mg/dL 05/18/18 Range/Units 05:36 RBC 3.01 L (3.65-5.03) M/mm3 Hgb 6.5 L (11.8-15.2) gm/dl Hct 21.2 L (35.5-45.6) % MCV 70 L (84-94) fl MCH 21 L (28-32) pg MCHC 31 L (32-34) % RDW 20.0 H (13.2-15.2) % Lymph % (Auto) 10.2 L (13.4-35.0) % Lymph # 0.9 L (1.2-5.4) K/mm3 Seg Neutrophils % 82.5 H (40.0-70.0) % Seg Neutrophils # (1.8-7.7) K/mm3 Sodium (137-145) mmol/L Chloride (98-107) mmol/L Carbon Dioxide (22-30) mmol/L BUN (9-20) mg/dL Creatinine (0.8-1.5) mg/dL Glucose (75-100) mg/dL POC Glucose (70-105) Calcium (8.4-10.2) mg/dL
--- NOTE | 2018-05-18 10:42 | Gastroenterology Progress Note ---
<KRISTIN SMITH - Last Filed: 05/18/18 10:36> Assessment and Plan 1.PEG -Oropharyngeal dysphagia: likely 2/2 mental status in the setting of sepsis and metabolic encephalopathy. - failed speech evaluation for swallow - Family refused PEG last week but is not agreeable - will tentatively schedule for EGD/PEG tomorrow if medically stable (pending transfusion of PRBCs today for chronic anemia with no active signs of bleeding) -continue to hold plavix -NPO after MN -INR in am -continue supportive care -electrolyte management per primary team -will follow Subjective Date of service: 05/18/18 Principal diagnosis: PEG Interval history: GI has been called back on this patient for a PEG placment to which family is now agreeable. No acute distress. No evidence of abd pain or N/V upon exam. Objective - Constitutional Vitals: Temp Pulse Resp BP Pulse Ox 99 F 112 H 30 H 122/67 99 05/18/18 08:00 05/18/18 06:00 05/18/18 06:00 05/18/18 06:00 05/18/18 07:39 General appearance: no acute distress - Respiratory Respiratory: bilateral: diminished - Cardiovascular Rhythm: other (tachycardia) - Gastrointestinal General gastrointestinal: Present: soft, non-distended, normal bowel sounds - Labs CBC & Chem 7: 05/18/18 05:36 05/18/18 05:36 Labs: Laboratory Results - last 24 hr 05/17/18 05/17/18 05/17/18 09:16 09:16 11:56 WBC 9.9 RBC 3.46 L Hgb 7.3 L Hct 23.5 L MCV 68 L MCH 21 L MCHC 31 L RDW 19.5 H Plt Count 261 Lymph % (Auto) 11.3 L [place] % (Auto) 5.4 Eos % (Auto) 0.9 Baso % (Auto) 0.4 Lymph # 1.1 L [place] # 0.5 Eos # 0.1 Baso # 0.0 Seg Neutrophils % 82.0 H Seg Neutrophils # 8.1 H Sodium 149 H Potassium 4.2 Chloride 119.6 H Carbon Dioxide 19 L Anion Gap 15 BUN 31 H Creatinine 1.8 H Estimated GFR 44 BUN/Creatinine Ratio 17 Glucose 102 H POC Glucose 111 H Calcium 7.4 L 05/17/18 05/18/18 05/18/18 23:24 05:03 05:36 WBC RBC Hgb Hct MCV MCH MCHC RDW Plt Count Lymph % (Auto) [place] % (Auto) Eos % (Auto) Baso % (Auto) Lymph # [place] # Eos # Baso # Seg Neutrophils % Seg Neutrophils # Sodium 145 Potassium 4.8 Chloride 118.9 H Carbon Dioxide 17 L Anion Gap 14 BUN 32 H Creatinine 2.2 H Estimated GFR 35 BUN/Creatinine Ratio 15 Glucose 176 H POC Glucose 159 H 217 H Calcium 7.0 L 05/18/18 05:36 WBC 9.2 RBC 3.01 L Hgb 6.5 L Hct 21.2 L MCV 70 L MCH 21 L MCHC 31 L RDW 20.0 H Plt Count 222 Lymph % (Auto) 10.2 L [place] % (Auto) 5.4 Eos % (Auto) 1.6 Baso % (Auto) 0.3 Lymph # 0.9 L [place] # 0.5 Eos # 0.1 Baso # 0.0 Seg Neutrophils % 82.5 H Seg Neutrophils # 7.6 Sodium Potassium Chloride Carbon Dioxide Anion Gap BUN Creatinine Estimated GFR BUN/Creatinine Ratio Glucose POC Glucose Calcium <DAYAN GARCIA - Last Filed: 05/18/18 13:20> Assessment and Plan pt seen and examined. agree with note above. discussed with pt's daughter at bedside. getting 1 unit of blood today due to hgb of 6.5. no signs of gi bleeding. Objective - Constitutional Vitals: Temp Pulse Resp BP Pulse Ox 98.7 F 100 H 16 107/63 100 05/18/18 12:50 05/18/18 12:50 05/18/18 12:50 05/18/18 12:50 05/18/18 12:50 - Labs CBC & Chem 7: 05/18/18 05:36 05/18/18 05:36 Labs: Laboratory Results - last 24 hr 05/17/18 05/17/18 05/18/18 11:56 23:24 05:03 WBC RBC Hgb Hct MCV MCH MCHC RDW Plt Count Lymph % (Auto) [place] % (Auto) Eos % (Auto) Baso % (Auto) Lymph # [place] # Eos # Baso # Seg Neutrophils % Seg Neutrophils # Sodium Potassium Chloride Carbon Dioxide Anion Gap BUN Creatinine Estimated GFR BUN/Creatinine Ratio Glucose POC Glucose 111 H 159 H 217 H Calcium Blood Type Antibody Screen Crossmatch 05/18/18 05/18/18 05/18/18 05:36 05:36 10:00 WBC 9.2 RBC 3.01 L Hgb 6.5 L Hct 21.2 L MCV 70 L MCH 21 L MCHC 31 L RDW 20.0 H Plt Count 222 Lymph % (Auto) 10.2 L [place] % (Auto) 5.4 Eos % (Auto) 1.6 Baso % (Auto) 0.3 Lymph # 0.9 L [place] # 0.5 Eos # 0.1 Baso # 0.0 Seg Neutrophils % 82.5 H Seg Neutrophils # 7.6 Sodium 145 Potassium 4.8 Chloride 118.9 H Carbon Dioxide 17 L Anion Gap 14 BUN 32 H Creatinine 2.2 H Estimated GFR 35 BUN/Creatinine Ratio 15 Glucose 176 H POC Glucose Calcium 7.0 L Blood Type O POSITIVE Antibody Screen Negative Crossmatch See Detail 05/18/18 13:14 WBC RBC Hgb Hct MCV MCH MCHC RDW Plt Count Lymph % (Auto) [place] % (Auto) Eos % (Auto) Baso % (Auto) Lymph # [place] # Eos # Baso # Seg Neutrophils % Seg Neutrophils # Sodium Potassium Chloride Carbon Dioxide Anion Gap BUN Creatinine Estimated GFR BUN/Creatinine Ratio Glucose POC Glucose 174 H Calcium Blood Type Antibody Screen Crossmatch
[2018-05-18] MEDS: CARAFATE PO SCH (14:03)
[2018-05-18] MEDS: FEOSOL PO SCH (14:03)
--- NOTE | 2018-05-18 18:18 | Progress Note ---
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 -overall prognosis is poor -Head CT scan on 05/12/18 neg Oropharngeal dysphagia -Pt was evaluated again by the speech therapist and nothing by mouth was recom mended -Family members now wants PEG tube to be placed after refusing it previously. GI has been re-consulted. -cont aspiration precautions Hypokalemia -resolved s/p repletion, will monitor Hypernatremia -Likely secondary to dehydration -IVF changed to D/W, will monitor Severe protein calorie malnutrition -tube feeding via dobhoff discontinued due to aspiration -cont dextrose IVF -Merch[employer] Representative following Bilateral LE edema -will do venous doppler to assess for DVT DEVIN, likely prerenal azotemia -On IV fluid, will monitor creatinine level -Consider nephrology consult if renal function worsens H/O CVA -cont supportive care Anemia of chronic dx -H/H Reviewed Hemoglobin dropped to 6.5 Family was updated about the lab results Transfuse 1 unit of PRBC Chronic urinary retention -cont durán catheter Physical deconditioning -cont fall precautions -PT/OT following DVT prophylaxis with SCD due to chronic anemia with high risk for bleed Disp: Pt's condition remains guarded with overall poor prognosis. cont management in the IMCU Objective General appearance: alert in NAD, conversant Eyes: anicteric sclerae, moist conjunctivae; no lid-lag; PERRLA HENT: Atraumatic; oropharynx clear with moist mucous membranes and no mucosal ulcerations/no oral thrush. Neck: Trachea midline; supple, no thyromegaly or lymphadenopathy Lungs: Barrett scattered rhonchi CV: RRR Abdomen: Soft, non-tender; no masses or hepatosplenomegaly Extremities: Barrett leg edema Skin: Normal temperature, turgor and texture; no rash, ulcers or subcutaneous nodules Psych: alert pleasant Neuro:alert moving all ext Objective - Constitutional Vitals: Vital Signs - 12hr 05/18/18 05/18/18 05/18/18 07:00 07:39 08:00 Temperature 99 F Pulse Rate 107 H 114 H Pulse Rate [ 120 H From Monitor] Respiratory 29 H 26 H Rate Blood Pressure 119/57 114/67 O2 Sat by Pulse 99 99 99 Oximetry 05/18/18 05/18/18 05/18/18 09:00 10:00 11:00 Temperature Pulse Rate 105 H 106 H 104 H Pulse Rate [ From Monitor] Respiratory 25 H 13 33 H Rate Blood Pressure 107/54 124/46 113/61 O2 Sat by Pulse 100 100 100 Oximetry 05/18/18 05/18/18 05/18/18 11:52 12:00 12:05 Temperature 98.3 F 98.5 F 98.6 F Pulse Rate 106 H 96 H 102 H Pulse Rate [ 97 H From Monitor] Respiratory 22 30 H 21 Rate Blood Pressure 110/63 110/63 110/45 O2 Sat by Pulse 100 100 100 Oximetry 05/18/18 05/18/18 05/18/18 12:14 12:20 12:21 Temperature 98.7 F 98.6 F Pulse Rate 104 H 101 H 97 H Pulse Rate [ From Monitor] Respiratory 22 33 H 30 H Rate Blood Pressure 113/57 95/67 121/59 O2 Sat by Pulse 99 100 Oximetry 05/18/18 05/18/18 05/18/18 12:30 12:41 12:50 Temperature 98.7 F Pulse Rate 98 H 95 H 100 H Pulse Rate [ From Monitor] Respiratory 31 H 30 H 16 Rate Blood Pressure 113/61 95/67 107/63 O2 Sat by Pulse 100 100 100 Oximetry 05/18/18 05/18/18 05/18/18 12:51 13:00 13:11 Temperature Pulse Rate 100 H 104 H 109 H Pulse Rate [ From Monitor] Respiratory 34 H 19 26 H Rate Blood Pressure 107/62 103/66 103/66 O2 Sat by Pulse 100 100 100 Oximetry 05/18/18 05/18/18 05/18/18 13:20 13:21 13:31 Temperature 98.6 F Pulse Rate 112 H 109 H 111 H Pulse Rate [ From Monitor] Respiratory 24 16 19 Rate Blood Pressure 116/74 103/66 116/74 O2 Sat by Pulse 100 100 100 Oximetry 05/18/18 05/18/18 05/18/18 13:41 13:51 14:01 Temperature Pulse Rate 108 H 109 H 108 H Pulse Rate [ From Monitor] Respiratory 18 21 22 Rate Blood Pressure 116/74 116/74 117/72 O2 Sat by Pulse 100 100 100 Oximetry 05/18/18 05/18/18 14:17 16:00 Temperature 98.5 F 98.2 F Pulse Rate 102 H Pulse Rate [ From Monitor] Respiratory 29 H Rate Blood Pressure 123/69 O2 Sat by Pulse 100 Oximetry - Labs CBC & Chem 7: 05/18/18 05:36 05/18/18 05:36 Labs: Abnormal lab results 05/17/18 05/17/18 05/18/18 Range/Units 11:56 23:24 05:03 RBC (3.65-5.03) M/mm3 Hgb (11.8-15.2) gm/dl Hct (35.5-45.6) % MCV (84-94) fl MCH (28-32) pg MCHC (32-34) % RDW (13.2-15.2) % Lymph % (Auto) (13.4-35.0) % Lymph # (1.2-5.4) K/mm3 Seg Neutrophils % (40.0-70.0) % Chloride (98-107) mmol/L Carbon Dioxide (22-30) mmol/L BUN (9-20) mg/dL Creatinine (0.8-1.5) mg/dL Glucose (75-100) mg/dL POC Glucose 111 H 159 H 217 H (70-105) Calcium (8.4-10.2) mg/dL Crossmatch 05/18/18 05/18/18 05/18/18 Range/Units 05:36 05:36 10:00 RBC 3.01 L (3.65-5.03) M/mm3 Hgb 6.5 L (11.8-15.2) gm/dl Hct 21.2 L (35.5-45.6) % MCV 70 L (84-94) fl MCH 21 L (28-32) pg MCHC 31 L (32-34) % RDW 20.0 H (13.2-15.2) % Lymph % (Auto) 10.2 L (13.4-35.0) % Lymph # 0.9 L (1.2-5.4) K/mm3 Seg Neutrophils % 82.5 H (40.0-70.0) % Chloride 118.9 H (98-107) mmol/L Carbon Dioxide 17 L (22-30) mmol/L BUN 32 H (9-20) mg/dL Creatinine 2.2 H (0.8-1.5) mg/dL Glucose 176 H (75-100) mg/dL POC Glucose (70-105) Calcium 7.0 L (8.4-10.2) mg/dL Crossmatch See Detail 05/18/18 05/18/18 Range/Units 13:14 17:25 RBC (3.65-5.03) M/mm3 Hgb (11.8-15.2) gm/dl Hct (35.5-45.6) % MCV (84-94) fl MCH (28-32) pg MCHC (32-34) % RDW (13.2-15.2) % Lymph % (Auto) (13.4-35.0) % Lymph # (1.2-5.4) K/mm3 Seg Neutrophils % (40.0-70.0) % Chloride (98-107) mmol/L Carbon Dioxide (22-30) mmol/L BUN (9-20) mg/dL Creatinine (0.8-1.5) mg/dL Glucose (75-100) mg/dL POC Glucose 174 H 174 H (70-105) Calcium (8.4-10.2) mg/dL Crossmatch
[2018-05-19] MEDS: CARAFATE PO SCH ×2 (02:30→12:11)
[2018-05-19] MEDS: PRAVACHOL PO SCH (02:40)
[2018-05-19] MEDS ORDERED: D50W (25GM) Syringe IV PRN (05:05)
[2018-05-19] MEDS: FLAGYL 500 MG/100 ML 500 MG/100 ML BAG IV SCH ×3 (06:01→23:48)
[2018-05-19] MEDS: SODIUM CHLORIDE FLUSH SYRINGE 10 ML IV SCH ×2 (06:02→12:13)
[2018-05-19 06:03] LABS: Basophils % (Auto) 0.5 % (0.0-1.8); Eosinophils # (Auto) 0.1 K/mm3 (0.0-0.4); Eosinophils % (Auto) 1.4 % (0.0-4.3); Hematocrit 24.3 % (35.5-45.6); Hemoglobin 7.7 gm/dl (11.8-15.2); Lymphocytes % (Auto) 10.8 % (13.4-35.0); Mean Corpuscular HGB Conc 32 % (32-34); Mean Corpuscular Volume 72 fl (84-94); Monocytes # (Auto) 0.5 K/mm3 (0.0-0.8); Monocytes % (Auto) 5.1 % (0.0-7.3); Platelet Count 198 K/mm3 (140-440); Red Blood Count 3.37 M/mm3 (3.65-5.03)
[2018-05-19] MEDS: NACL 0.9% 1000 ML 1,000 ML IV SCH ×2 (06:03→23:50)
[2018-05-19 06:09] LABS: Red Cell Distribution Width 23.9 % (13.2-15.2)
[2018-05-19 06:10] LABS: INR 1.61 (0.87-1.13)
--- NOTE | 2018-05-19 08:24 | Progress Note ---
Assessment and Plan Cultures: 05/07/18 Blood: no growth thus far 05/08/18: Urine: Jennifer albicans 05/12/18: Influenza PCR neg A/P: 78-year-old male past medical history of CVA, Type 2 diabetes, GERD, Asthma, Hyperlipedemia, Right total knee replacement, now admitted with: 1. SIRS vs Sepsis: noted fever at home, mild leukocytosis and tachycardia, resolved but new fever this am 100.2. Initially felt to be to be UTI however U/A was negative for a UTI, Urine culture is positive for Jennifer Albicans, Blood cultures show no growth thus far. Initial Chest xray shows no infiltrates. Influenza PCR negative. Received Cefepime for 5 days. Repeat CXR showed LLL aspiration pneumonia, likely aspiration pneumonitis; now on ceftriaxone and flagyl. 2. ?Urinary Tract Infection: less likely, U/A is not consistent with a UTI, Urine culture is positive for Jennifer albicans, however this may be reflective of colonization, Indwelling Martinez catheter placed 04/25/18 for urinary retention. 3. Acute encephalopathy: family states some confusion at home, currently not a baseline. Improving 4. Penicillin Allergy: anaphylactic reaction per family. Currently tolerating cephalosporin, continue to monitor closely. 5. Acute Respiratory Failure: Chest xray at bedside.Transferred to IMCU. 6. DEVIN: creat 2.2 worsening 7. Severe anemia: s/p transfusion yesterday Plan: - repeat blood culture, CXR and CT sinus due to new fever and worsening upper resp secretions - oral care, discussed with nursings staff - Renal consult - worsening creatinine - Continue Ceftriaxone and flagyl D6 of 7 - Aspiration precautions - Family considering PEG placement Extensive discussion with daughter regarding pathophysiology of aspiration pneumonia. She believes that it happened inhouse when NGT was placed, however I explained he came with SIRS and initial CXR/CT neg but later CXR showed LLL pneumonia likely consistent with aspiration pneumonia, which has been probably ongoing on before admission due to dysphagia. will follow Vicky Maria MD Infectious Diseases Emergency Medical Technician/Driver [facility] ([facility]) M [phone] O [phone] Subjective Date of service: 05/19/18 Principal diagnosis: PEG Interval history: Patient is alert and interactive, talking, daughter at bedside c/o copious secretions from mouth. New fever 100.2 this am. Had blood transfusion last night. ROS: limited due to dementia Objective - Exam Narrative Exam: General appearance: alert in NAD, conversant Eyes: anicteric sclerae, moist conjunctivae; no lid-lag; PERRLA HENT: Atraumatic; oropharynx thick whitish debris, normal hard and soft palate edentulous. Normal external ears. Neck: Trachea midline; supple, no thyromegaly or lymphadenopathy Lungs: CTA bridget CV: RRR Abdomen: Soft, non-tender; no masses or hepatosplenomegaly Extremities: Bridget leg edema Skin: Normal temperature, turgor and texture; no rash, ulcers or subcutaneous nodules Psych: alert pleasant Neuro:alert moving all ext - Constitutional Vitals: Vital Signs Temp Pulse Resp BP Pulse Ox 97.7 F 116 H 19 118/65 100 05/19/18 08:00 05/19/18 08:00 05/19/18 08:00 05/19/18 08:00 05/19/18 08:00 Temperature -Last 24 Hours Temperature 97.7 F Temperature 100.2 F Temperature 98 F Temperature 97.4 F Temperature 98 F Temperature 98.2 F Temperature 98.5 F Temperature 98.6 F Temperature 98.7 F Temperature 98.6 F Temperature 98.7 F Temperature 98.6 F Temperature 98.5 F Temperature 98.3 F - Labs CBC & Chem 7: 05/19/18 05:00 05/18/18 05:36 Labs: Abnormal lab results 05/18/18 05/18/18 05/18/18 Range/Units 10:00 13:14 17:25 RBC (3.65-5.03) M/mm3 Hgb (11.8-15.2) gm/dl Hct (35.5-45.6) % MCV (84-94) fl MCH (28-32) pg RDW (13.2-15.2) % Lymph % (Auto) (13.4-35.0) % Lymph # (1.2-5.4) K/mm3 Seg Neutrophils % (40.0-70.0) % Seg Neutrophils # (1.8-7.7) K/mm3 PT (12.2-14.9) Sec. INR (0.87-1.13) POC Glucose 174 H 174 H (70-105) Uric Acid (3.5-7.6) mg/dL Crossmatch See Detail 05/19/18 05/19/18 05/19/18 Range/Units 01:19 02:17 04:07 RBC (3.65-5.03) M/mm3 Hgb (11.8-15.2) gm/dl Hct (35.5-45.6) % MCV (84-94) fl MCH (28-32) pg RDW (13.2-15.2) % Lymph % (Auto) (13.4-35.0) % Lymph # (1.2-5.4) K/mm3 Seg Neutrophils % (40.0-70.0) % Seg Neutrophils # (1.8-7.7) K/mm3 PT (12.2-14.9) Sec. INR (0.87-1.13) POC Glucose 189 H 218 H (70-105) Uric Acid 9.0 H (3.5-7.6) mg/dL Crossmatch 05/19/18 05/19/18 Range/Units 05:00 05:00 RBC 3.37 L (3.65-5.03) M/mm3 Hgb 7.7 L (11.8-15.2) gm/dl Hct 24.3 L (35.5-45.6) % MCV 72 L (84-94) fl MCH 23 L (28-32) pg RDW 23.9 H (13.2-15.2) % Lymph % (Auto) 10.8 L (13.4-35.0) % Lymph # 1.0 L (1.2-5.4) K/mm3 Seg Neutrophils % 82.2 H (40.0-70.0) % Seg Neutrophils # 7.9 H (1.8-7.7) K/mm3 PT 20.2 H (12.2-14.9) Sec. INR 1.61 H (0.87-1.13) POC Glucose (70-105) Uric Acid (3.5-7.6) mg/dL Crossmatch
--- NOTE | 2018-05-19 08:53 | Consultation ---
History of Present Illness - History of Present Illness Thank you for the consultation ! Patient was evaluated today My assessment and plan are as follows; Acute kidney injury appears to be multifactorial in etiology in a patient who is 78-year-old with multiple comorbidities Creatinine was 1.3 on 05/15/2018 which has currently gone up to 2.2, the patient does have history of urinary retention There is no indication for renal replacement therapy for now will need to follow Continue gentle hydration, monitoring of electrolytes, avoidance of nephrotoxic medications Questionable urinary tract infection culture positive for Jennifer albicans could be due to colonization patient does have indwelling Martinez catheter for retention Cannot rule out possibility of drug-induced and social nephritis, rule out other causes for renal failure Metabolic acidosis current bicarbonate level around 17 Hyperuricemia likely resulting from free water deprivation/dehydration, to monitor and follow Patient will need renal imaging as well as labs for follow-up Hypernatremia to monitor and follow check osmolality uric acid to guide the fluid therapy Moderately severe anemia hemoglobin currently at 7.7 platelet count normal 198,000 Patient has bilateral lower extremity edema likely due to third spacing of fluid Venous duplex currently negative Aspiration pneumonia, acute cystitis systemic inflammatory response syndrome, metabolic encephalopathy Renal prognosis remains guarded due to above We will continue to follow and make recommendations from renal standpoint. Thank you for the consultation Author: Macario Baca M.D. [facility], [address] [place] [address] Tel; [phone] Source of information: From patient History of present illness Patient is an 78-year-old -Congolese male who has known history of chronic kidney disease he's been admitted here with altered mental status generalized weakness and fever Patient does have history of chronic kidney disease and does have history of urinary retention needing Martinez catheter placement he was also noted to be febrile upon arrival Creatinine upon admission was 1.4 upon admission with sodium of 150 As of today his BUN is 32 with a creatinine of 2.2 and bicarbonate is 17 with hemoglobin of 7.7 Past medical history significant for Chronic kidney disease Acute renal failure Urinary retention Anemia Metabolic acidosis Hypernatremia Urinary tract infection CVA Current allergies, home medication present medication: Reviewed Social history, family history: Reviewed from the chart Review of system: Patient has stroke and very limited Reviewed the current chart as well as old chart, Physical examination Vitals: Reviewed General: No acute distress HEENT: Oral mucosa moist no pallor or icterus Neck: Supple without any JVD thyromegaly or nodular mass Chest: Clear to auscultation Heart: Regular rate and rhythm S1-S2 heard no S3-S4 Abdomen: Soft nontender, bowel sounds present no renal bruit no suprapubic mas ses no CVA tenderness noted Extremity: bilateral lower extremity edema dry skin no peripheral cyanosis Endocrine: Thyroid not enlarged Psychiatric: No agitation and aggression noted Musculoskeletal: No joint effusion noted Labs and x-rays: Reviewed from this admission Past History Past Medical History: diabetes, hypertension, stroke Past Surgical History: total knee replacement Social history: lives with family, smoking Medications and Allergies Allergies Allergy/AdvReac Type Severity Reaction Status Date / Time Penicillins Allergy Unknown Verified 04/11/18 16:00 Home Medications Medication Instructions Recorded Confirmed Last Taken Type Clopidogrel Bisulfate [Plavix] 75 mg PO DAILY #0 09/21/17 05/07/18 04/24/18 12:00 History Famotidine [Pepcid] 20 mg PO DAILY #0 09/21/17 05/07/18 04/24/18 History 20mg Simvastatin 40 mg PO HS 09/21/17 05/07/18 04/24/18 08:00 History 20 mg Sucralfate [Carafate] 1 gram PO BID #0 09/21/17 05/07/18 04/24/18 12:00 History 1 gm Ferrous Sulfate [Feosol 325 MG tab] 325 mg PO BID #60 tablet 05/04/18 05/07/18 Unknown Rx Active Meds: Active Medications Acetaminophen (Tylenol) 650 mg PO Q4H PRN PRN Reason: Pain MILD(1-3)/Fever >100.5/MACIAS Albuterol (Proventil) 2.5 mg IH Q4HRT PRN PRN Reason: Shortness Of Breath Bisacodyl (Dulcolax) 10 mg IA QDAY PRN PRN Reason: Constipation Last Admin: 05/16/18 13:54 Dose: 10 mg Documented by: Dextrose (D50w (25gm) Syringe) 50 ml IV PRN PRN PRN Reason: Hypoglycemia Ferrous Sulfate (Feosol) 325 mg PO BID FREDI Last Admin: 05/18/18 14:03 Dose: Not Given Documented by: Hydromorphone HCl (Dilaudid) 0.5 mg IV Q3H PRN PRN Reason: Pain , Severe (7-10) Ceftriaxone Sodium (Rocephin/Ns 1 Gm/50 Ml) 1 gm in 50 mls @ 100 mls/hr IV Q24HR [facility]; Protocol Last Admin: 05/18/18 09:44 Dose: 100 mls/hr Documented by: Metronidazole (Flagyl 500 Mg/100 Ml) 500 mg in 100 mls @ 100 mls/hr IV Q8HR [facility]; Protocol Last Admin: 05/19/18 06:01 Dose: 100 mls/hr Documented by: Dextrose (D10w) 1,000 mls @ 75 mls/hr IV DIRECT [facility] Last Admin: 05/18/18 09:45 Dose: 75 mls/hr Documented by: Sodium Chloride (Nacl 0.9% 1000 Ml) 1,000 mls @ 75 mls/hr IV DIRECT FREDI Last Admin: 05/19/18 06:03 Dose: 75 mls/hr Documented by: Ondansetron HCl (Zofran) 4 mg IV Q8H PRN PRN Reason: Nausea And Vomiting Oxycodone/Acetaminophen (Percocet 5/325) 1 tab PO Q6H PRN PRN Reason: Pain, Moderate (4-6) Pantoprazole Sodium (Protonix) 40 mg IV QDAY [facility] Last Admin: 05/18/18 09:47 Dose: 40 mg Documented by: Pravastatin Sodium (Pravachol) 80 mg PO QHS [facility] Last Admin: 05/19/18 02:40 Dose: Not Given Documented by: Sodium Chloride (Sodium Chloride Flush Syringe 10 Ml) 10 ml IV BID [facility] Last Admin: 05/19/18 06:02 Dose: 10 ml Documented by: Sodium Chloride (Sodium Chloride Flush Syringe 10 Ml) 10 ml IV PRN PRN PRN Reason: LINE FLUSH Last Admin: 05/08/18 03:56 Dose: 10 ml Documented by: Sucralfate (Carafate) 1 gm PO BID [facility] Last Admin: 05/19/18 02:30 Dose: Not Given Documented by: Exam - Vital Signs Vital signs: Vital Signs Temp Pulse Resp BP Pulse Ox 99.0 F 109 H 28 H 110/64 97 05/07/18 10:07 05/07/18 10:07 05/07/18 10:07 05/07/18 10:07 05/07/18 10:07 Results - Lab Results 05/19/18 05:00 05/18/18 05:36 Most recent lab results Calcium 7.0 mg/dL (8.4-10.2) L 05/18/18 05:36 Phosphorus 3.60 mg/dL (2.5-4.5) 05/09/18 01:00 Magnesium 2.30 mg/dL (1.7-2.3) 05/12/18 08:41
--- NOTE | 2018-05-19 11:00 | XRay Report ---
ROUTINE CHEST, TWO VIEWS: HISTORY: New fever. Feeding tube has been removed since 05/14/18. The lungs are adequately aerated. Slightly prominent bronchopulmonary markings have resolved since the previous exam. Trace bilateral pleural effusions are suspected which are unchanged. No pneumothorax. Heart size and pulmonary vessels are within normal limits. IMPRESSION: No acute cardiopulmonary process is identified. Trace bilateral pleural effusions.
[2018-05-19] MEDS: ROCEPHIN/NS 1 GM/50 ML 1 GM/50 ML BAG IV SCH (12:10)
[2018-05-19] MEDS: PROTONIX IV SCH (12:11)
[2018-05-19] MEDS: FEOSOL PO SCH (12:13)
[2018-05-19] MEDS ORDERED: GENTAMICIN 120 MG in NACL 0.9% 100 ML IV SCH (12:45)
[2018-05-19] MEDS ORDERED: CLEOCIN 600 MG/50 mL 600 MG/50 ML BAG IV NR (13:00)
[2018-05-19] MEDS ORDERED: NACL 0.9% 1000 ML 1,000 ML IV SCH (13:00)
[2018-05-19] MEDS ORDERED: DIPRIVAN 10 MG/ML IV ONE ×2 (13:23)
--- NOTE | 2018-05-19 13:32 | Anesthesia Day of Surgery ---
Anesthesia Day of Surgery - Day of Surgery Patient Examined: Yes Patient H&P Reviewed: Yes Patient is NPO: Yes
--- NOTE | 2018-05-19 13:32 | Anesthesia Consultation ---
Anesthesia Consult and Med Hx Date of service: 05/19/18 - Airway Anesthetic Teeth Evaluation: Edentulous ROM Head & Neck: Adequate Mental/Hyoid Distance: Adequate Mallampati Class: Class III Intubation Access Assessment: Possibly Difficult - Pre-Operative Health Status ASA Pre-Surgery Classification: ASA3 Proposed Anesthetic Plan: MAC - Pulmonary Hx Smoking: Yes (quit 30yrs ago) Hx Asthma: Yes COPD: No Hx Pneumonia: No - Cardiovascular System Hx Hypertension: Yes - Central Nervous System CVA: Yes (right sided weakness) - Endocrine Hx End Stage Renal Disease: No
--- NOTE | 2018-05-19 14:08 | Operative Report ---
Operative Report Operative Report: Esophagogastroduodenoscopy Procedure Note with Biopsies Date of procedure: 05/19/2018 Endoscopist: Galdino Lopez Pre-op diagnosis: Oropharyngeal dysphagia Post-op diagnosis: Large ulcerated and erythematous mucosa in 2nd portion of duodenum Anesthesia: MAC Complications: No immediate complications Estimated blood loss: none Procedure: After consent was obtained from patient's family member, the patient was placed in the supine position. The fujinon endoscope was inserted into the patient's mouth under direct vision, and advanced into the 2nd portion of the duodenum without difficulty. The patient tolerated the procedure well. The views of the mucosa were good. Patient's vital signs were monitored continuously throughout the procedure. Findings: The esophagus appeared normal. The stomach appeared normal. However, a safe site for peg tube placement was not identified with transillumination and finger indentation (unable to find site outside of chest wall/sternum). There was a segment of large ulcerated, erythematous, abnd raised mucosa in the 2nd portion of the duodenum. Multiple biopsies were obtained to rule out malignancy. There were no high risk bleeding lesions. Impression: 1. Segmental ulcerated, erythematous, and raised mucosa in the 2nd portion of the duodenum. Biopsied to rule out malignancy. 2. Unable to identify safe window for PEG tube placement endoscopically. Recommendations: -follow-up pathology -will need PEG tube placement by IR vs surgery -anti-acid medication daily
--- NOTE | 2018-05-19 20:08 | Progress Note ---
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 -overall prognosis is poor -Head CT scan on 05/12/18 neg Oropharngeal dysphagia; scheduled for PEG placement today -Pt was evaluated again by the speech therapist and nothing by mouth was recommended -Family members now wants PEG tube to be placed after refusing it previously. GI has been re-consulted. -cont aspiration precautions Hypokalemia -resolved s/p repletion, will monitor Hypernatremia -Likely secondary to dehydration -IVF changed to D/W, will monitor Severe protein calorie malnutrition -tube feeding via dobhoff discontinued due to aspiration -cont dextrose IVF -Pump Erector following Bilateral LE edema -will do venous doppler to assess for DVT DEVIN, likely prerenal azotemia -On IV fluid, will monitor creatinine level -Consider nephrology consult if renal function worsens H/O CVA -cont supportive care Anemia of chronic dx -H/H Reviewed Hemoglobin dropped to 6.5 Family was updated about the lab results Transfuse 1 unit of PRBC Chronic urinary retention -cont durán catheter Physical deconditioning -cont fall precautions -PT/OT following DVT prophylaxis with SCD due to chronic anemia with high risk for bleed Disp: Pt's condition remains guarded with overall poor prognosis. cont management in the [facility] History Interval history: Patient seen and examined medical records reviewed Scheduled for PEG placement today per GI No new complaints Patient's daughter at the bedside Vital signs noted Hospitalist Physical - Constitutional Vitals: Temp Pulse Resp BP Pulse Ox 98.2 F 97 H 37 H 94/58 98 05/19/18 16:00 05/19/18 18:00 05/19/18 18:00 05/19/18 18:00 05/19/18 20:04 General appearance: Present: mild distress, well-nourished, obese, other (awake and unresponsive) - EENT Eyes: Present: PERRL, EOM intact - Neck Neck: Present: supple, normal ROM - Respiratory Respiratory effort: normal Respiratory: bilateral: diminished, rhonchi, negative: rales, wheezing - Cardiovascular Rhythm: regular Heart Sounds: Present: S1 & S2 - Extremities Extremities: no ischemia, No edema - Abdominal General gastrointestinal: soft, non-tender, non-distended, normal bowel sounds - Integumentary Integumentary: Present: clear, warm - Psychiatric Psychiatric: appropriate mood/affect, cooperative - Neurologic Neurologic: CNII-XII intact, moves all extremities Results - Labs CBC & Chem 7: 05/19/18 05:00 05/18/18 05:36 Labs: Laboratory Last Values WBC 9.6 K/mm3 (4.5-11.0) 05/19/18 05:00 RBC 3.37 M/mm3 (3.65-5.03) L 05/19/18 05:00 Hgb 7.7 gm/dl (11.8-15.2) L 05/19/18 05:00 Hct 24.3 % (35.5-45.6) L 05/19/18 05:00 MCV 72 fl (84-94) L 05/19/18 05:00 MCH 23 pg (28-32) L 05/19/18 05:00 MCHC 32 % (32-34) 05/19/18 05:00 RDW 23.9 % (13.2-15.2) H 05/19/18 05:00 Plt Count 198 K/mm3 (140-440) 05/19/18 05:00 Lymph % (Auto) 10.8 % (13.4-35.0) L 05/19/18 05:00 Mcpherson % (Auto) 5.1 % (0.0-7.3) 05/19/18 05:00 Eos % (Auto) 1.4 % (0.0-4.3) 05/19/18 05:00 Baso % (Auto) 0.5 % (0.0-1.8) 05/19/18 05:00 Lymph # 1.0 K/mm3 (1.2-5.4) L 05/19/18 05:00 Mcpherson # 0.5 K/mm3 (0.0-0.8) 05/19/18 05:00 Eos # 0.1 K/mm3 (0.0-0.4) 05/19/18 05:00 Baso # 0.0 K/mm3 (0.0-0.1) 05/19/18 05:00 Add Manual Diff Complete 05/11/18 14:09 Total Counted 100 05/11/18 14:09 Seg Neutrophils % 82.2 % (40.0-70.0) H 05/19/18 05:00 Seg Neuts % (Manual) 49.0 % (40.0-70.0) 05/11/18 14:09 Band Neutrophils % 0 % 05/11/18 14:09 Lymphocytes % (Manual) 45.0 % (13.4-35.0) H 05/11/18 14:09 Reactive Lymphs % (Man) 0 % 05/11/18 14:09 Monocytes % (Manual) 4.0 % (0.0-7.3) 05/11/18 14:09 Eosinophils % (Manual) 1.0 % (0.0-4.3) 05/11/18 14:09 Basophils % (Manual) 1.0 % (0.0-1.8) 05/11/18 14:09 Metamyelocytes % 0 % 05/11/18 14:09 Myelocytes % 0 % 05/11/18 14:09 Promyelocytes % 0 % 05/11/18 14:09 Blast Cells % 0 % 05/11/18 14:09 Nucleated RBC % Not Reportable 05/11/18 14:09 Seg Neutrophils # 7.9 K/mm3 (1.8-7.7) H 05/19/18 05:00 Seg Neutrophils # Man 6.0 K/mm3 (1.8-7.7) 05/11/18 14:09 Band Neutrophils # 0.0 K/mm3 05/11/18 14:09 Lymphocytes # (Manual) 5.5 K/mm3 (1.2-5.4) H 05/11/18 14:09 Abs React Lymphs (Man) 0.0 K/mm3 05/11/18 14:09 Monocytes # (Manual) 0.5 K/mm3 (0.0-0.8) 05/11/18 14:09 Eosinophils # (Manual) 0.1 K/mm3 (0.0-0.4) 05/11/18 14:09 Basophils # (Manual) 0.1 K/mm3 (0.0-0.1) 05/11/18 14:09 Metamyelocytes # 0.0 K/mm3 05/11/18 14:09 Myelocytes # 0.0 K/mm3 05/11/18 14:09 Promyelocytes # 0.0 K/mm3 05/11/18 14:09 Blast Cells # 0.0 K/mm3 05/11/18 14:09 WBC Morphology Not Reportable 05/11/18 14:09 Hypersegmented Neuts Not Reportable 05/11/18 14:09 Hyposegmented Neuts Not Reportable 05/11/18 14:09 Hypogranular Neuts Not Reportable 05/11/18 14:09 Smudge Cells Not Reportable 05/11/18 14:09 Toxic Granulation Not Reportable 05/11/18 14:09 Toxic Vacuolation Not Reportable 05/11/18 14:09 Dohle Bodies Not Reportable 05/11/18 14:09 Pelger-Huet Anomaly Not Reportable 05/11/18 14:09 Alba Rods Not Reportable 05/11/18 14:09 Platelet Estimate Consistent w auto 05/11/18 14:09 Clumped Platelets Not Reportable 05/11/18 14:09 Plt Clumps, EDTA Not Reportable 05/11/18 14:09 Large Platelets Not Reportable 05/11/18 14:09 Giant Platelets Not Reportable 05/11/18 14:09 Platelet Satelliting Not Reportable 05/11/18 14:09 Plt Morphology Comment Not Reportable 05/11/18 14:09 RBC Morphology Not Reportable 05/11/18 14:09 Dimorphic RBCs Not Reportable 05/11/18 14:09 Polychromasia Few 05/11/18 14:09 Hypochromasia Not Reportable 05/11/18 14:09 Poikilocytosis Not Reportable 05/11/18 14:09 Anisocytosis 1+ 05/11/18 14:09 Microcytosis Not Reportable 05/11/18 14:09 Macrocytosis Not Reportable 05/11/18 14:09 Spherocytes Not Reportable 05/11/18 14:09 Pappenheimer Bodies Not Reportable 05/11/18 14:09 Sickle Cells Not Reportable 05/11/18 14:09 Target Cells Not Reportable 05/11/18 14:09 Tear Drop Cells Not Reportable 05/11/18 14:09 Ovalocytes Not Reportable 05/11/18 14:09 Helmet Cells Not Reportable 05/11/18 14:09 Mcc[place] Bodies Not Reportable 05/11/18 14:09 Latexo Rings Not Reportable 05/11/18 14:09 [place] Cells Not Reportable 05/11/18 14:09 Bite Cells Not Reportable 05/11/18 14:09 Crenated Cell Not Reportable 05/11/18 14:09 Elliptocytes Not Reportable 05/11/18 14:09 Acanthocytes (Spur) Not Reportable 05/11/18 14:09 Rouleaux Not Reportable 05/11/18 14:09 Hemoglobin C Crystals Not Reportable 05/11/18 14:09 Schistocytes Not Reportable 05/11/18 14:09 Malaria parasites Not Reportable 05/11/18 14:09 James Bodies Not Reportable 05/11/18 14:09 Hem Pathologist Commnt No 05/11/18 14:09 PT 20.2 Sec. (12.2-14.9) H 05/19/18 05:00 INR 1.61 (0.87-1.13) H 05/19/18 05:00 APTT 30.3 Sec. (24.2-36.6) 05/07/18 10:37 POC ABG pH 7.372 (7.35-7.45) 05/14/18 10:36 POC ABG pCO2 31.8 (35-45) L 05/14/18 10:36 POC ABG pO2 83 (80-105) 05/14/18 10:36 POC ABG HCO3 18.5 05/14/18 10:36 POC ABG Total CO2 19 05/14/18 10:36 POC ABG O2 Sat 96 05/14/18 10:36 POC ABG Base Excess -7 05/14/18 10:36 FiO2 21 % 05/14/18 10:36 Sodium 145 mmol/L (137-145) 05/18/18 05:36 Potassium 4.8 mmol/L (3.6-5.0) 05/18/18 05:36 Chloride 118.9 mmol/L (98-107) H 05/18/18 05:36 Carbon Dioxide 17 mmol/L (22-30) L 05/18/18 05:36 Anion Gap 14 mmol/L 05/18/18 05:36 BUN 32 mg/dL (9-20) H 05/18/18 05:36 Creatinine 2.2 mg/dL (0.8-1.5) H 05/18/18 05:36 Estimated GFR 35 ml/min 05/18/18 05:36 BUN/Creatinine Ratio 15 % 05/18/18 05:36 Glucose 176 mg/dL (75-100) H 05/18/18 05:36 POC Glucose 127 (70-105) H 05/19/18 17:47 Hemoglobin A1c 7.6 % (4-6) H 05/08/18 03:15 Osmolality 316 Mosm/kg 05/19/18 01:19 Lactic Acid 1.60 mmol/L (0.7-2.0) 05/07/18 13:21 Uric Acid 9.0 mg/dL (3.5-7.6) H 05/19/18 01:19 Calcium 7.0 mg/dL (8.4-10.2) L 05/18/18 05:36 Phosphorus 3.60 mg/dL (2.5-4.5) 05/09/18 01:00 Magnesium 2.30 mg/dL (1.7-2.3) 05/12/18 08:41 Total Bilirubin 0.50 mg/dL (0.1-1.2) 05/12/18 08:41 AST 15 units/L (5-40) 05/12/18 08:41 ALT 7 units/L (7-56) 05/12/18 08:41 Alkaline Phosphatase 106 units/L (35-129) 05/12/18 08:41 Total Protein 5.5 g/dL (6.3-8.2) L 05/12/18 08:41 Albumin 1.3 g/dL (3.9-5) L 05/12/18 08:41 Albumin/Globulin Ratio 0.3 % 05/12/18 08:41 Urine Color Yellow (Yellow) 05/07/18 12:20 Urine Turbidity Clear (Clear) 05/07/18 12:20 Urine pH 5.0 (5.0-7.0) 05/07/18 12:20 Ur Specific [place] 1.012 (1.003-1.030) 05/07/18 12:20 Urine Protein <15 mg/dl mg/dL (Negative) 05/07/18 12:20 Urine Glucose (UA) Neg mg/dL (Negative) 05/07/18 12:20 Urine Ketones Tr mg/dL (Negative) 05/07/18 12:20 Urine Blood Sm (Negative) 05/07/18 12:20 Urine Nitrite Neg (Negative) 05/07/18 12:20 Urine Bilirubin Neg (Negative) 05/07/18 12:20 Urine Urobilinogen < 2.0 mg/dL (<2.0) 05/07/18 12:20 Ur Leukocyte Esterase Neg (Negative) 05/07/18 12:20 Urine WBC (Auto) 3.0 /HPF (0.0-6.0) 05/07/18 12:20 Urine RBC (Auto) 7.0 /HPF (0.0-6.0) 05/07/18 12:20 U Epithel Cells (Auto) < 1.0 /HPF (0-13.0) 05/07/18 12:20 Urine Bacteria (Auto) 1+ /HPF (Negative) 05/07/18 12:20 Urine Mucus Few /HPF 05/07/18 12:20 Influenza A (Rapid) Negative (Negative) 05/12/18 Unknown Influenza A (RT-PCR) Negative (Negative) 05/12/18 Unknown Influenza B (Rapid) Negative (Negative) 05/12/18 Unknown Influenza B (RT-PCR) Negative (Negative) 05/12/18 Unknown Blood Type O POSITIVE 05/18/18 10:00 Antibody Screen Negative 05/18/18 10:00 Crossmatch See Detail 05/18/18 10:00 Nutrition/Malnutrition Assess - Dietary Evaluation Nutrition/Malnutrition Findings: Nutrition Notes Start: 05/08/18 09:32 Freq: Status: Active Protocol: Document 05/19/18 15:39 RM (Rec: 05/19/18 15:42 RM [id number]) Nutrition Notes Initial or Follow up Reassessment Current Diagnosis Acute Kidney Injury Coronary Artery Disease Diabetes Hypertension Respiratory Failure Stroke Hyperlipidemia Other Pertinent Diagnosis Sacral PU, Sepsis, DVT, GERD, AMS, Pneumonia Current Diet NPO after midnight Labs/Tests Reviewed Pertinent Medications Reviewed Height 5 ft 6 in Weight 86.3 kg [place] Cbc Base Body Weight (kg) 64.54 BMI 30.7 Weight change and time frame 6.45% wt loss X 11 days Subjective/Other Information PEG planned for today. Percent of energy/protein needs met: 0%/0% Burn Absent Trauma Absent #1 Nutrition Diagnosis Inadequate oral intake Diagnosis Progress(for reassessment Continues documentation) Is patient on ventilator? No Is Patient Ambulatory and/or Out of Bed No REE-([facility]-confined to bed) [phone] Calculation Used for Recommendations [facility] Additional Notes Protein needs: AdBW: 75 KG (1.2-1.5 g/kg) (90-113 g/day) Fluid needs: 1ml/ kcal Nutrition Intervention Change Diet Order: TF consult Nutrition Support: Resume Glucerna 1.2 at 65 ml/ hr w/water flush 100 ml/hr q 4 hr once PEG placed Kcal 1,872 Protein (gm) 94 Fluid (mL) 1,255 Goal #1 TF consult Anticipated Discharge Needs: Unable to determine at this time Follow-Up By: 05/21/18 Additional Comments Follow for TF consult
[2018-05-20] MEDS: CARAFATE PO SCH ×2 (00:46→10:29)
[2018-05-20] MEDS: PRAVACHOL PO SCH (00:46)
[2018-05-20] MEDS: FLAGYL 500 MG/100 ML 500 MG/100 ML BAG IV SCH (06:36)
--- NOTE | 2018-05-20 09:33 | Progress Note ---
Subjective Principal diagnosis: PEG Interval history: Patient was seen today for follow-up on multiple renal related issues Events of this hospitalization noted Status post endoscopy showing large ulcer Currently on dextrose infusion Urine studies not submitted Uric acid elevated osmolality on the high side Patient denies having any chest pain pressure or shortness of breath Vitals labs intake output medications were reviewed Social history: Reviewed Allergies: Reviewed Family history: Reviewed Physical examination HEENT: Oral mucosa moist no pallor or icterus Neck: Supple no JVD Chest: Clear to auscultation anteriorly CVS: Regular rate and rhythm S1 and S2 heard Abdomen: Soft nontender no suprapubic masses no organomegaly appreciable Extremity: Dry skin less than 1+ peripheral edema Musculoskeletal: No joint effusion noted in knees and ankle Neurological: Alert awake Dermatology: No petechial rashes Psychiatry: No evidence of any agitation and aggression noted Assessment and plan Acute renal failure in a 78 -year-old with multiple comorbidities admitted with systemic inflammatory response syndrome, on antibiotic, noted to have Jennifer urinary tract infection Will order for basic metabolic profile , uric acid elevated with increased osmolality, relatively, indicative of free water deficient intravascular volume depletion Currently on dextrose infusion 75 mL an hour D 10 His urine sodium and creatinine has still not been submitted Metabolic acidosis patient will need sodium bicarbonate, will give 2 amp IV today Dysphagia, patient was pending PEG tube placement, patient has had a large ulcer in the second portion of duodenum, being ruled out for malignancy Hypokalemia needs monitoring and follow-up Hypernatremia mostly resulting from free water deficit Renal ultrasonogram obtained March 2018 shows evidence of obstructive uropathy: Patient will need to continue following up with urology Due to age and multiple comorbidities his renal prognosis remains guarded to poor We'll continue to follow and make recommendation from renal standpoint Objective - Vital Signs Vital signs: Vital Signs - 12hr 05/19/18 05/19/18 05/20/18 22:00 23:01 00:00 Temperature 98.4 F Pulse Rate 101 H 102 H 89 Pulse Rate [ 92 H From Monitor] Respiratory 22 21 24 Rate Blood Pressure 105/61 94/67 109/45 O2 Sat by Pulse 99 99 81 L Oximetry 05/20/18 05/20/18 05/20/18 01:01 02:00 03:00 Temperature Pulse Rate 101 H 106 H 101 H Pulse Rate [ From Monitor] Respiratory 25 H 27 H 26 H Rate Blood Pressure 105/46 114/74 128/65 O2 Sat by Pulse 99 99 99 Oximetry 05/20/18 05/20/18 04:00 04:01 Temperature 98.1 F Pulse Rate 102 H Pulse Rate [ 92 H From Monitor] Respiratory 20 18 Rate Blood Pressure 136/94 O2 Sat by Pulse 99 100 Oximetry - Lab 05/19/18 05:00 05/18/18 05:36 Most recent lab results Calcium 7.0 mg/dL (8.4-10.2) L 05/18/18 05:36 Phosphorus 3.60 mg/dL (2.5-4.5) 05/09/18 01:00 Magnesium 2.30 mg/dL (1.7-2.3) 05/12/18 08:41 Medications & Allergies - Medications Allergies/Adverse Reactions: Allergies Penicillins Allergy (Verified 04/11/18 16:00) Unknown Home Medications: Home Medications Medication Instructions Recorded Confirmed Last Taken Type Clopidogrel Bisulfate [Plavix] 75 mg PO DAILY #0 09/21/17 05/07/18 04/24/18 12:00 History Famotidine [Pepcid] 20 mg PO DAILY #0 09/21/17 05/07/18 04/24/18 History 20mg Simvastatin 40 mg PO HS 09/21/17 05/07/18 04/24/18 08:00 History 20 mg Sucralfate [Carafate] 1 gram PO BID #0 09/21/17 05/07/18 04/24/18 12:00 History 1 gm Ferrous Sulfate [Feosol 325 MG tab] 325 mg PO BID #60 tablet 05/04/18 05/07/18 Unknown Rx Active Medications: Generic Name Dose Route Start Last Admin Trade Name Freq PRN Reason Stop Dose Admin Acetaminophen 650 mg 05/08/18 02:22 Tylenol PO Q4H PRN Pain MILD(1-3)/Fever >100.5/MACIAS Albuterol 2.5 mg 05/10/18 15:59 Proventil IH Q4HRT PRN Shortness Of Breath Bisacodyl 10 mg 05/16/18 13:02 05/16/18 13:54 Dulcolax NC 10 mg QDAY PRN Administration Constipation Dextrose 50 ml 05/19/18 05:05 D50w (25gm) Syringe IV PRN PRN Hypoglycemia Ferrous Sulfate 325 mg 05/08/18 10:00 05/19/18 12:13 Feosol PO Not Given BID FREDI Hydromorphone HCl 0.5 mg 05/08/18 02:22 Dilaudid IV Q3H PRN Pain , Severe (7-10) Ceftriaxone Sodium 1 gm in 50 mls @ 100 mls/hr 05/14/18 14:00 05/19/18 12:10 Rocephin/Ns 1 Gm/50 Ml IV 100 mls/hr Q24HR FREDI Administration Protocol Metronidazole 500 mg in 100 mls @ 100 mls/hr 05/14/18 14:00 05/20/18 06:36 Flagyl 500 Mg/100 Ml IV 100 mls/hr Q8HR FREDI Administration Protocol Dextrose 1,000 mls @ 75 mls/hr 05/17/18 13:00 05/18/18 09:45 D10w IV 75 mls/hr DIRECT FREDI Administration Sodium Chloride 1,000 mls @ 75 mls/hr 05/19/18 05:00 05/19/18 23:50 Nacl 0.9% 1000 Ml IV 75 mls/hr DIRECT FREDI Administration Gentamicin Sulfate 120 mg/ 103 mls @ 200 mls/hr 05/19/18 12:45 Sodium Chloride IV PREOP FREDI Protocol Sodium Chloride 1,000 mls @ 50 mls/hr 05/19/18 13:00 05/19/18 13:36 Nacl 0.9% 1000 Ml IV 50 mls/hr DIRECT FREDI Administration Ondansetron HCl 4 mg 05/08/18 02:22 Zofran IV Q8H PRN Nausea And Vomiting Oxycodone/Acetaminophen 1 tab 05/08/18 02:22 Percocet 5/325 PO Q6H PRN Pain, Moderate (4-6) Pantoprazole Sodium 40 mg 05/16/18 14:00 05/19/18 12:11 Protonix IV 40 mg QDAY FREDI Administration Pravastatin Sodium 80 mg 05/08/18 22:00 05/20/18 00:46 Pravachol PO Not Given QHS FREDI Sodium Chloride 10 ml 05/08/18 10:00 05/19/18 12:13 Sodium Chloride Flush Syringe 10 Ml IV 10 ml BID FREDI Administration Sodium Chloride 10 ml 05/08/18 02:22 05/08/18 03:56 Sodium Chloride Flush Syringe 10 Ml IV 10 ml PRN PRN Administration LINE FLUSH Sucralfate 1 gm 05/08/18 10:00 05/20/18 00:46 Carafate PO Not Given BID FREDI
--- NOTE | 2018-05-20 09:49 | Cat Scan Report ---
CT SINUSES WITHOUT CONTRAST: HISTORY: New fever, worsening upper respiratory secretions. TECHNIQUE: Helical CT with sagittal and coronal reformatted images. The visualized sinus groups are well aerated. The ostiomeatal units are normal and patent bilaterally. The nasal septum is midline. The nasal turbinates are symmetrical. There is no evidence of tristin bullosa or sinusitis. CONCLUSION: Negative sinus CT.
[2018-05-20] MEDS: SODIUM CHLORIDE FLUSH SYRINGE 10 ML IV SCH ×2 (10:27→22:42)
[2018-05-20] MEDS: FEOSOL PO SCH (10:27)
[2018-05-20] MEDS: ROCEPHIN/NS 1 GM/50 ML 1 GM/50 ML BAG IV SCH (10:28)
[2018-05-20] MEDS: PROTONIX IV SCH (10:28)
--- NOTE | 2018-05-20 12:03 | Gastroenterology Progress Note ---
Assessment and Plan 1.PEG -s/p EGD yesterday that showed a segmental ulcerated erythematous and raised mucosa in the 2nd portion of the duodenum (bx obtained r/o malignancy) but unable to identify safe window for PEG placement endoscopically -recommendations given for consult to IR vs surgery for PEG placement -bx results pending -continue daily PPI and supportive care -will follow path Subjective Date of service: 05/20/18 Principal diagnosis: PEG Interval history: No acute distress. Objective - Constitutional Vitals: Temp Pulse Resp BP Pulse Ox 97.6 F 93 H 18 111/78 100 05/20/18 08:00 05/20/18 10:00 05/20/18 10:00 05/20/18 10:00 05/20/18 10:00 General appearance: no acute distress - Respiratory Respiratory: bilateral: diminished - Cardiovascular Rhythm: regular Heart Sounds: Present: S1 & S2 - Gastrointestinal General gastrointestinal: Present: soft, non-distended, normal bowel sounds - Labs CBC & Chem 7: 05/19/18 05:00 05/20/18 09:51 Labs: Laboratory Results - last 24 hr 05/19/18 05/19/18 05/19/18 12:23 17:47 23:20 Sodium Potassium Chloride Carbon Dioxide Anion Gap BUN Creatinine Estimated GFR BUN/Creatinine Ratio Glucose POC Glucose 125 H 127 H 113 H Calcium 05/20/18 05/20/18 05:14 09:51 Sodium 146 H Potassium 3.8 D Chloride 119.2 H Carbon Dioxide 17 L Anion Gap 14 BUN 36 H Creatinine 2.6 H Estimated GFR 29 BUN/Creatinine Ratio 14 Glucose 74 L POC Glucose 89 Calcium 7.0 L
--- NOTE | 2018-05-20 13:44 | Progress Note ---
Assessment and Plan Cultures: 05/07/18 Blood: no growth thus far 05/08/18: Urine: Jennifer albicans 05/12/18: Influenza PCR neg 05/19/18: Blood: no growth thus far A/P: 78-year-old male past medical history of CVA, Type 2 diabetes, GERD, Asthma, Hyperlipedemia, Right total knee replacement, now admitted with: 1. SIRS vs Sepsis:Resolved no fever > 24 hours. Initially felt to be to be UTI however U/A was negative for a UTI, Urine culture is positive for Jennifer Albicans, Blood cultures show no growth thus far. Initial Chest xray shows no infiltrates. Influenza PCR negative. Received Cefepime for 5 days. Repeat CXR showed LLL aspiration pneumonia, likely aspiration pneumonitis; now on ceftriaxone and flagyl. 2. ?Urinary Tract Infection: less likely, U/A is not consistent with a UTI, Urine culture is positive for Jennifer albicans, however this may be reflective of colonization, Indwelling Martinez catheter placed 04/25/18 for urinary retention. 3. Acute encephalopathy: family states some confusion at home, currently not a b aseline. Improving 4. Penicillin Allergy: anaphylactic reaction per family. Currently tolerating cephalosporin, continue to monitor closely. 5. Acute Respiratory Failure: Chest xray at bedside.Transferred to [facility]. Chest CT 05/19/18 : No acute cardiopulmonary process is identified. Trace bilateral pleural effusions sinus CT 05/20/18: negative sinus CT 6. DEVIN: creat 2.6 worsening 7. Severe anemia: s/p transfusion yesterday Plan: - oral care, discussed with nursings staff - Renal consult - worsening creatinine - Continue Ceftriaxone and flagyl D7of 9 - Aspiration precautions - Contacted for possible peg tube. CT ordered to check window since GI was unable to place a tube due to lack of appropriate window [facility] M: [phone] O:[phone] Subjective Date of service: 05/20/18 Principal diagnosis: PEG Interval history: Patient seen and examined. Awake, Alert, no acute distress, family at bedside. Nurses notes, lab and reports reviewed, discussed with family Objective - Exam Narrative Exam: Narrative Exam: General appearance: alert in NAD, conversant Eyes: anicteric sclerae, moist conjunctivae; no lid-lag; PERRLA HENT: Atraumatic; oropharynx thick whitish debris, normal hard and soft palate edentulous. Normal external ears. Neck: Trachea midline; supple, no thyromegaly or lymphadenopathy Lungs: CTA bridget CV: RRR Abdomen: Soft, non-tender; no masses or hepatosplenomegaly Extremities: Bridget leg edema Skin: Normal temperature, turgor and texture; no rash, ulcers or subcutaneous nodules Psych: alert pleasant Neuro:alert moving all ext - Constitutional Vitals: Vital Signs Temp Pulse Resp BP Pulse Ox 98.4 F 93 H 18 111/78 100 05/20/18 12:00 05/20/18 10:00 05/20/18 10:00 05/20/18 10:00 05/20/18 10:00 Temperature -Last 24 Hours Temperature 98.4 F Temperature 97.6 F Temperature 98.1 F Temperature 98.4 F Temperature 98.4 F Temperature 99.1 F Temperature 99.1 F Temperature 98.2 F Temperature 97.6 F - Labs CBC & Chem 7: 05/19/18 05:00 05/20/18 09:51 Labs: Abnormal lab results 05/19/18 05/19/18 05/20/18 Range/Units 17:47 23:20 09:51 Sodium 146 H (137-145) mmol/L Chloride 119.2 H (98-107) mmol/L Carbon Dioxide 17 L (22-30) mmol/L BUN 36 H (9-20) mg/dL Creatinine 2.6 H (0.8-1.5) mg/dL Glucose 74 L (75-100) mg/dL POC Glucose 127 H 113 H (70-105) Calcium 7.0 L (8.4-10.2) mg/dL
[2018-05-20] MEDS: NACL 0.9% 1000 ML 1,000 ML IV SCH (14:38)
--- NOTE | 2018-05-20 14:53 | Event Note ---
Date: 05/20/18 Contacted for possible peg tube. Will order CT to check for window since GI was unable to place a tube due to lack of appropriate window. Further recommendations based on CT scan.
--- NOTE | 2018-05-20 20:28 | Cat Scan Report ---
FINAL REPORT EXAM: CT ABDOMEN PELVIS WO CON HISTORY: peg tube, unable to visualize window TECHNIQUE: Standard unenhanced CT of the abdomen and pelvis. Coronal and sagittal reconstruction was also performed. PRIORS: CT a/P 04/27/2018 FINDINGS: No PEG tube is present within the stomach. The collapsed stomach lies directly beneath the left hemid iaphragm. The transverse colon overlies the anterior aspect of the stomach. In the left kidney, there is hydronephrosis to the proximal 3rd of the ureter. The distal 2/3 of the ureter is collapsed. No well-defined mass or obstructing calculus is seen at this transition zone. Th ere is also enhancement of the wall of the ureter at the level of the renal pelvis. Findings can be s een with ureteritis. There is a nonobstructing 3 mm calculus in the lower pole right kidney. There is small amount of ascites present around the liver and within the lower abdomen and pelvis. There is concentric wall thickening of the transverse colon and splenic flexure. Haziness in the nicole cent fat is noted. Findings suggests inflammatory process such as colitis. Neoplasm is not excluded a lthough the involved segment is longer than typically seen with neoplasm. Within the abdomen, the liver, spleen, pancreas, gallbladder, and adrenal glands are unremarkable. No evidence for retroperitoneal or pelvic lymphadenopathy is seen. The small bowel loops have normal c aliber. No loculated fluid collection or free air is seen within the abdomen or pelvis. The appendix is normal. Within the pelvis, the bladder collapsed containing a Martinez catheter balloon. The prostate is normal. No evidence for mass or lymphadenopathy is seen in the pelvis. Images through the upper abdomen include the lung bases which demonstrate linear bibasilar atelectasi s and small bilateral pleural effusions. Bony structures show severe disc space narrowing L5-S1. Subcutaneous edema representing mild anasarca overlying the hips is noted bilaterally. IMPRESSION: 1. No PEG tube is present within the stomach. The stomach is collapsed lying directly beneath the lef t hemidiaphragm 2. Overlying transverse colon demonstrates concentric wall thickening and subtle stranding in the adj acent fat. Findings are consistent with acute colitis although neoplasm is not excluded 3. Hydronephrosis of left kidney down to the proximal 3rd of the ureter. No definite etiology for obs truction at the junction of the proximal 3rd and distal 2/3 of the ureter is seen. 4. Enhancement of the wall of the left renal pelvis which can be seen with ureteritis 5. Nonobstructing calculus in the right kidney 6. Bibasilar atelectasis is small bilateral pleural effusions
[2018-05-20] MEDS: SODIUM BICARBONATE IV ONE (22:43)
[2018-05-20] MEDS ORDERED: D5/0.45NS 1,000 ML IV SCH (23:45)
--- NOTE | 2018-05-20 23:52 | Progress Note ---
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 -overall prognosis is poor -Head CT scan on 05/12/18 neg Oropharngeal dysphagia; -Pt was evaluated again by the speech therapist and nothing by mouth was recommended -Family members now wants PEG tube to be placed after refusing it previously. GI has been re-consulted. -cont aspiration precautions Hypokalemia -resolved s/p repletion, will monitor Hypernatremia -Likely secondary to dehydration -IVF changed to D/W, will monitor Severe protein calorie malnutrition -tube feeding via dobhoff discontinued due to aspiration -cont dextrose IVF -[facility] Intern following Bilateral LE edema -will do venous doppler to assess for DVT DEVIN, likely prerenal azotemia -On IV fluid, will monitor creatinine level -Consider nephrology consult if renal function worsens H/O CVA -cont supportive care Anemia of chronic dx -H/H Reviewed Hemoglobin dropped to 6.5 Family was updated about the lab results Transfuse 1 unit of PRBC Chronic urinary retention -cont durán catheter Physical deconditioning -cont fall precautions -PT/OT following DVT prophylaxis with SCD due to chronic anemia with high risk for bleed Disp: Pt's condition remains guarded with overall poor prognosis. cont management in the [facility] History Interval history: patient seen and examined medical records reviewed. No new events reported, The patient is comfortable Vital signs reviewed Hospitalist Physical - Constitutional Vitals: Temp Pulse Resp BP Pulse Ox 97.3 F L 105 H 17 147/81 100 05/20/18 20:00 05/20/18 21:01 05/20/18 21:01 05/20/18 21:01 05/20/18 21:01 General appearance: Present: no acute distress, well-nourished, obese - EENT Eyes: Present: PERRL, EOM intact - Neck Neck: Present: supple, normal ROM - Respiratory Respiratory effort: normal Respiratory: bilateral: diminished, negative: rales, rhonchi, wheezing - Cardiovascular Rhythm: regular Heart Sounds: Present: S1 & S2 - Extremities Extremities: no ischemia, No edema - Abdominal General gastrointestinal: soft, non-tender, non-distended, normal bowel sounds - Integumentary Integumentary: Present: clear, warm - Psychiatric Psychiatric: appropriate mood/affect, cooperative - Neurologic Neurologic: CNII-XII intact, moves all extremities Results - Labs CBC & Chem 7: 05/23/18 05:03 05/23/18 05:03 Labs: Laboratory Last Values WBC 9.6 K/mm3 (4.5-11.0) 05/19/18 05:00 RBC 3.37 M/mm3 (3.65-5.03) L 05/19/18 05:00 Hgb 7.7 gm/dl (11.8-15.2) L 05/19/18 05:00 Hct 24.3 % (35.5-45.6) L 05/19/18 05:00 MCV 72 fl (84-94) L 05/19/18 05:00 MCH 23 pg (28-32) L 05/19/18 05:00 MCHC 32 % (32-34) 05/19/18 05:00 RDW 23.9 % (13.2-15.2) H 05/19/18 05:00 Plt Count 198 K/mm3 (140-440) 05/19/18 05:00 Lymph % (Auto) 10.8 % (13.4-35.0) L 05/19/18 05:00 [place] % (Auto) 5.1 % (0.0-7.3) 05/19/18 05:00 Eos % (Auto) 1.4 % (0.0-4.3) 05/19/18 05:00 Baso % (Auto) 0.5 % (0.0-1.8) 05/19/18 05:00 Lymph # 1.0 K/mm3 (1.2-5.4) L 05/19/18 05:00 [place] # 0.5 K/mm3 (0.0-0.8) 05/19/18 05:00 Eos # 0.1 K/mm3 (0.0-0.4) 05/19/18 05:00 Baso # 0.0 K/mm3 (0.0-0.1) 05/19/18 05:00 Add Manual Diff Complete 05/11/18 14:09 Total Counted 100 05/11/18 14:09 Seg Neutrophils % 82.2 % (40.0-70.0) H 05/19/18 05:00 Seg Neuts % (Manual) 49.0 % (40.0-70.0) 05/11/18 14:09 Band Neutrophils % 0 % 05/11/18 14:09 Lymphocytes % (Manual) 45.0 % (13.4-35.0) H 05/11/18 14:09 Reactive Lymphs % (Man) 0 % 05/11/18 14:09 Monocytes % (Manual) 4.0 % (0.0-7.3) 05/11/18 14:09 Eosinophils % (Manual) 1.0 % (0.0-4.3) 05/11/18 14:09 Basophils % (Manual) 1.0 % (0.0-1.8) 05/11/18 14:09 Metamyelocytes % 0 % 05/11/18 14:09 Myelocytes % 0 % 05/11/18 14:09 Promyelocytes % 0 % 05/11/18 14:09 Blast Cells % 0 % 05/11/18 14:09 Nucleated RBC % Not Reportable 05/11/18 14:09 Seg Neutrophils # 7.9 K/mm3 (1.8-7.7) H 05/19/18 05:00 Seg Neutrophils # Man 6.0 K/mm3 (1.8-7.7) 05/11/18 14:09 Band Neutrophils # 0.0 K/mm3 05/11/18 14:09 Lymphocytes # (Manual) 5.5 K/mm3 (1.2-5.4) H 05/11/18 14:09 Abs React Lymphs (Man) 0.0 K/mm3 05/11/18 14:09 Monocytes # (Manual) 0.5 K/mm3 (0.0-0.8) 05/11/18 14:09 Eosinophils # (Manual) 0.1 K/mm3 (0.0-0.4) 05/11/18 14:09 Basophils # (Manual) 0.1 K/mm3 (0.0-0.1) 05/11/18 14:09 Metamyelocytes # 0.0 K/mm3 05/11/18 14:09 Myelocytes # 0.0 K/mm3 05/11/18 14:09 Promyelocytes # 0.0 K/mm3 05/11/18 14:09 Blast Cells # 0.0 K/mm3 05/11/18 14:09 WBC Morphology Not Reportable 05/11/18 14:09 Hypersegmented Neuts Not Reportable 05/11/18 14:09 Hyposegmented Neuts Not Reportable 05/11/18 14:09 Hypogranular Neuts Not Reportable 05/11/18 14:09 Smudge Cells Not Reportable 05/11/18 14:09 Toxic Granulation Not Reportable 05/11/18 14:09 Toxic Vacuolation Not Reportable 05/11/18 14:09 Dohle Bodies Not Reportable 05/11/18 14:09 Pelger-Huet Anomaly Not Reportable 05/11/18 14:09 Alba Rods Not Reportable 05/11/18 14:09 Platelet Estimate Consistent w auto 05/11/18 14:09 Clumped Platelets Not Reportable 05/11/18 14:09 Plt Clumps, EDTA Not Reportable 05/11/18 14:09 Large Platelets Not Reportable 05/11/18 14:09 Giant Platelets Not Reportable 05/11/18 14:09 Platelet Satelliting Not Reportable 05/11/18 14:09 Plt Morphology Comment Not Reportable 05/11/18 14:09 RBC Morphology Not Reportable 05/11/18 14:09 Dimorphic RBCs Not Reportable 05/11/18 14:09 Polychromasia Few 05/11/18 14:09 Hypochromasia Not Reportable 05/11/18 14:09 Poikilocytosis Not Reportable 05/11/18 14:09 Anisocytosis 1+ 05/11/18 14:09 Microcytosis Not Reportable 05/11/18 14:09 Macrocytosis Not Reportable 05/11/18 14:09 Spherocytes Not Reportable 05/11/18 14:09 Pappenheimer Bodies Not Reportable 05/11/18 14:09 Sickle Cells Not Reportable 05/11/18 14:09 Target Cells Not Reportable 05/11/18 14:09 Tear Drop Cells Not Reportable 05/11/18 14:09 Ovalocytes Not Reportable 05/11/18 14:09 Helmet Cells Not Reportable 05/11/18 14:09 [place] Bodies Not Reportable 05/11/18 14:09 Wyola Rings Not Reportable 05/11/18 14:09 Jazmin Cells Not Reportable 05/11/18 14:09 Bite Cells Not Reportable 05/11/18 14:09 Crenated Cell Not Reportable 05/11/18 14:09 Elliptocytes Not Reportable 05/11/18 14:09 Acanthocytes (Spur) Not Reportable 05/11/18 14:09 Rouleaux Not Reportable 05/11/18 14:09 Hemoglobin C Crystals Not Reportable 05/11/18 14:09 Schistocytes Not Reportable 05/11/18 14:09 Malaria parasites Not Reportable 05/11/18 14:09 James Bodies Not Reportable 05/11/18 14:09 Hem Pathologist Commnt No 05/11/18 14:09 PT 20.2 Sec. (12.2-14.9) H 05/19/18 05:00 INR 1.61 (0.87-1.13) H 05/19/18 05:00 APTT 30.3 Sec. (24.2-36.6) 05/07/18 10:37 POC ABG pH 7.372 (7.35-7.45) 05/14/18 10:36 POC ABG pCO2 31.8 (35-45) L 05/14/18 10:36 POC ABG pO2 83 (80-105) 05/14/18 10:36 POC ABG HCO3 18.5 05/14/18 10:36 POC ABG Total CO2 19 05/14/18 10:36 POC ABG O2 Sat 96 05/14/18 10:36 POC ABG Base Excess -7 05/14/18 10:36 FiO2 21 % 05/14/18 10:36 Sodium 146 mmol/L (137-145) H 05/20/18 09:51 Potassium 3.8 mmol/L (3.6-5.0) D 05/20/18 09:51 Chloride 119.2 mmol/L (98-107) H 05/20/18 09:51 Carbon Dioxide 17 mmol/L (22-30) L 05/20/18 09:51 Anion Gap 14 mmol/L 05/20/18 09:51 BUN 36 mg/dL (9-20) H 05/20/18 09:51 Creatinine 2.6 mg/dL (0.8-1.5) H 05/20/18 09:51 Estimated GFR 29 ml/min 05/20/18 09:51 BUN/Creatinine Ratio 14 % 05/20/18 09:51 Glucose 74 mg/dL (75-100) L 05/20/18 09:51 POC Glucose 86 (70-105) 05/20/18 14:52 Hemoglobin A1c 7.6 % (4-6) H 05/08/18 03:15 Osmolality 316 Mosm/kg 05/19/18 01:19 Lactic Acid 1.60 mmol/L (0.7-2.0) 05/07/18 13:21 Uric Acid 9.0 mg/dL (3.5-7.6) H 05/19/18 01:19 Calcium 7.0 mg/dL (8.4-10.2) L 05/20/18 09:51 Phosphorus 3.60 mg/dL (2.5-4.5) 05/09/18 01:00 Magnesium 2.30 mg/dL (1.7-2.3) 05/12/18 08:41 Total Bilirubin 0.50 mg/dL (0.1-1.2) 05/12/18 08:41 AST 15 units/L (5-40) 05/12/18 08:41 ALT 7 units/L (7-56) 05/12/18 08:41 Alkaline Phosphatase 106 units/L (35-129) 05/12/18 08:41 Total Protein 5.5 g/dL (6.3-8.2) L 05/12/18 08:41 Albumin 1.3 g/dL (3.9-5) L 05/12/18 08:41 Albumin/Globulin Ratio 0.3 % 05/12/18 08:41 Urine Color Yellow (Yellow) 05/07/18 12:20 Urine Turbidity Clear (Clear) 05/07/18 12:20 Urine pH 5.0 (5.0-7.0) 05/07/18 12:20 Ur Specific [place] 1.012 (1.003-1.030) 05/07/18 12:20 Urine Protein <15 mg/dl mg/dL (Negative) 05/07/18 12:20 Urine Glucose (UA) Neg mg/dL (Negative) 05/07/18 12:20 Urine Ketones Tr mg/dL (Negative) 05/07/18 12:20 Urine Blood Sm (Negative) 05/07/18 12:20 Urine Nitrite Neg (Negative) 05/07/18 12:20 Urine Bilirubin Neg (Negative) 05/07/18 12:20 Urine Urobilinogen < 2.0 mg/dL (<2.0) 05/07/18 12:20 Ur Leukocyte Esterase Neg (Negative) 05/07/18 12:20 Urine WBC (Auto) 3.0 /HPF (0.0-6.0) 05/07/18 12:20 Urine RBC (Auto) 7.0 /HPF (0.0-6.0) 05/07/18 12:20 U Epithel Cells (Auto) < 1.0 /HPF (0-13.0) 05/07/18 12:20 Urine Bacteria (Auto) 1+ /HPF (Negative) 05/07/18 12:20 Urine Mucus Few /HPF 05/07/18 12:20 Influenza A (Rapid) Negative (Negative) 05/12/18 Unknown Influenza A (RT-PCR) Negative (Negative) 05/12/18 Unknown Influenza B (Rapid) Negative (Negative) 05/12/18 Unknown Influenza B (RT-PCR) Negative (Negative) 05/12/18 Unknown Blood Type O POSITIVE 05/18/18 10:00 Antibody Screen Negative 05/18/18 10:00 Crossmatch See Detail 05/18/18 10:00 Nutrition/Malnutrition Assess - Dietary Evaluation Nutrition/Malnutrition Findings: Nutrition Notes Start: 05/08/18 09:32 Freq: Status: Active Protocol: Document 05/19/18 15:39 RM (Rec: 05/19/18 15:42 RM [id number]) Nutrition Notes Initial or Follow up Reassessment Current Diagnosis Acute Kidney Injury Coronary Artery Disease Diabetes Hypertension Respiratory Failure Stroke Hyperlipidemia Other Pertinent Diagnosis Sacral PU, Sepsis, DVT, GERD, AMS, Pneumonia Current Diet NPO after midnight Labs/Tests Reviewed Pertinent Medications Reviewed Height 5 ft 6 in Weight 86.3 kg [place] Body Weight (kg) 64.54 BMI 30.7 Weight change and time frame 6.45% wt loss X 11 days Subjective/Other Information PEG planned for today. Percent of energy/protein needs met: 0%/0% Burn Absent Trauma Absent #1 Nutrition Diagnosis Inadequate oral intake Diagnosis Progress(for reassessment Continues documentation) Is patient on ventilator? No Is Patient Ambulatory and/or Out of Bed No REE-([facility]-confined to bed) [phone] Calculation Used for Recommendations [facility] Additional Notes Protein needs: AdBW: 75 KG (1.2-1.5 g/kg) (90-113 g/day) Fluid needs: 1ml/ kcal Nutrition Intervention Change Diet Order: TF consult Nutrition Support: Resume Glucerna 1.2 at 65 ml/ hr w/water flush 100 ml/hr q 4 hr once PEG placed Kcal 1,872 Protein (gm) 94 Fluid (mL) 1,255 Goal #1 TF consult Anticipated Discharge Needs: Unable to determine at this time Follow-Up By: 05/21/18 Additional Comments Follow for TF consult
[2018-05-21] MEDS: FEOSOL PO SCH ×3 (06:04→22:10)
[2018-05-21] MEDS: CARAFATE PO SCH ×3 (06:05→22:09)
[2018-05-21] MEDS: PRAVACHOL PO SCH ×2 (06:05→22:09)
--- NOTE | 2018-05-21 08:51 | Progress Note ---
Subjective Principal diagnosis: PEG Interval history: Patient was seen today for follow-up of multiple renal related issues seen and critical care setting Events of 24 hours vitals labs intake output medications were reviewed Past medical history: Reviewed Family history: Reviewed Social history: Reviewed Allergies: Reviewed Physical examination: Vitals: Reviewed HEENT: No pallor or icterus oral mucosa moist Neck: Supple no JVD no thyromegaly Chest: few basilar crackles Heart: Regular rate and rhythm S1-S2 heard no S3-S4 Abdomen: Soft nontender no voluntary guarding rigidity rebound Extremity: Dry skin less than 1+ peripheral edema Psychiatric: No evidence of agitation and aggression noted Dermatology: No petechial rashes Labs and x-rays: Reviewed from today Assessment and plan Acute renal failure, patient appears to have worsening in creatinine, unable to get oral feeding/PEG tube placement We'll start IV hydration, sodium bicarbonate replacement for metabolic acidosis Renal prognosis remains guarded Chronic left-sided hydronephrosis with relatively atrophic left kidney, patient has been seen by urology in the prior admission Encephalopathy: Multi factor and the patient is 78-year-old admitted with prior history of CVA hemiparesis recurrent aspiration pneumonia Blood pressure appears to be stable patient does have mild tachycardia, As of today his BUN is 35 creatinine is 2.7 sodium 151 potassium is 3.8 and bicarbonate of 19 Hypernatremia requires more free water We'll continue to follow and make recommendation for renal standpoint Objective - Vital Signs Vital signs: Vital Signs - 12hr 05/20/18 05/20/18 05/20/18 21:01 21:41 22:00 Temperature Pulse Rate 105 H 104 H 103 H Pulse Rate [ From Monitor] Respiratory 17 16 23 Rate Blood Pressure 147/81 115/64 133/71 O2 Sat by Pulse 100 100 98 Oximetry 05/20/18 05/21/18 05/21/18 23:00 00:00 01:00 Temperature Pulse Rate 107 H 112 H 103 H Pulse Rate [ 102 H From Monitor] Respiratory 19 16 26 H Rate Blood Pressure 135/66 133/73 124/70 O2 Sat by Pulse 99 98 99 Oximetry 05/21/18 05/21/18 05/21/18 02:00 03:00 04:00 Temperature 97.1 F L Pulse Rate 103 H 102 H 100 H Pulse Rate [ 94 H From Monitor] Respiratory 19 24 22 Rate Blood Pressure 121/64 111/61 126/65 O2 Sat by Pulse 99 100 99 Oximetry 05/21/18 05/21/18 05/21/18 05:00 06:00 07:00 Temperature Pulse Rate 108 H 103 H 104 H Pulse Rate [ From Monitor] Respiratory 20 26 H 27 H Rate Blood Pressure 120/67 117/63 109/73 O2 Sat by Pulse 100 100 96 Oximetry 05/21/18 08:00 Temperature Pulse Rate 101 H Pulse Rate [ From Monitor] Respiratory 21 Rate Blood Pressure 107/68 O2 Sat by Pulse 99 Oximetry - Lab 05/19/18 05:00 05/21/18 10:11 Most recent lab results Calcium 7.0 mg/dL (8.4-10.2) L 05/20/18 09:51 Phosphorus 3.60 mg/dL (2.5-4.5) 05/09/18 01:00 Magnesium 2.30 mg/dL (1.7-2.3) 05/12/18 08:41 Medications & Allergies - Medications Allergies/Adverse Reactions: Allergies Penicillins Allergy (Verified 04/11/18 16:00) Unknown Home Medications: Home Medications Medication Instructions Recorded Confirmed Last Taken Type Clopidogrel Bisulfate [Plavix] 75 mg PO DAILY #0 09/21/17 05/07/18 04/24/18 12:00 History Famotidine [Pepcid] 20 mg PO DAILY #0 09/21/17 05/07/18 04/24/18 History 20mg Simvastatin 40 mg PO HS 09/21/17 05/07/18 04/24/18 08:00 History 20 mg Sucralfate [Carafate] 1 gram PO BID #0 09/21/17 05/07/18 04/24/18 12:00 History 1 gm Ferrous Sulfate [Feosol 325 MG tab] 325 mg PO BID #60 tablet 05/04/18 05/07/18 Unknown Rx Active Medications: Generic Name Dose Route Start Last Admin Trade Name Freq PRN Reason Stop Dose Admin Acetaminophen 650 mg 05/08/18 02:22 Tylenol PO Q4H PRN Pain MILD(1-3)/Fever >100.5/MACIAS Albuterol 2.5 mg 05/10/18 15:59 Proventil IH Q4HRT PRN Shortness Of Breath Bisacodyl 10 mg 05/16/18 13:02 05/16/18 13:54 Dulcolax TN 10 mg QDAY PRN Administration Constipation Dextrose 50 ml 05/19/18 05:05 D50w (25gm) Syringe IV PRN PRN Hypoglycemia Ferrous Sulfate 325 mg 05/08/18 10:00 05/21/18 06:04 Feosol PO Not Given BID FREDI Hydromorphone HCl 0.5 mg 05/08/18 02:22 Dilaudid IV Q3H PRN Pain , Severe (7-10) Ondansetron HCl 4 mg 05/08/18 02:22 Zofran IV Q8H PRN Nausea And Vomiting Oxycodone/Acetaminophen 1 tab 05/08/18 02:22 Percocet 5/325 PO Q6H PRN Pain, Moderate (4-6) Pantoprazole Sodium 40 mg 05/16/18 14:00 05/20/18 10:28 Protonix IV 40 mg QDAY FREDI Administration Pravastatin Sodium 80 mg 05/08/18 22:00 05/21/18 06:05 Pravachol PO Not Given QHS FREDI Sodium Chloride 10 ml 05/08/18 10:00 05/20/18 22:42 Sodium Chloride Flush Syringe 10 Ml IV 10 ml BID FREDI Administration Sodium Chloride 10 ml 05/08/18 02:22 05/08/18 03:56 Sodium Chloride Flush Syringe 10 Ml IV 10 ml PRN PRN Administration LINE FLUSH Sucralfate 1 gm 05/08/18 10:00 05/21/18 06:05 Carafate PO Not Given BID FREDI
--- NOTE | 2018-05-21 10:15 | Progress Note ---
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 --DEVIN, likely vasomotor nephropathy, worsening renal function Nephrology following, gentle hydration, avoid nephrotoxins --Chronic left hydronephrosis, atrophic left kidney Extensively evaluated by urology during previous admission --Hyperglycemia/type 2 diabetes mellitus Accu-Chek sliding scale coverage and ADA diet, insulin as needed --Acute metabolic encephalopathy likely multifactorial.Head CT scan on 05/12/18 neg --Hypokalemia -resolved s/p repletion, will monitor --Hypernatremia Likely secondary to dehydration IVF changed to D/W, will monitor --Severe protein calorie malnutrition -tube feeding via dobhoff discontinued due to aspiration -cont dextrose IVF -Machine Wedger following --Bilateral LE edema Significantly improved --H/O CVA with right-sided hemiparesis cont supportive care --Anemia of chronic dx s/p 1 unit PRBC transfusion History 7.7 today --Chronic urinary retention; patient follows with urology cont durán catheter --Physical deconditioning cont fall precautions PT/OT , recommend acute/subacute rehabilitation Patient's family refused --DVT prophylaxis with SCD due to chronic anemia with high risk for bleed Disp: Pt's condition remains guarded with overall poor prognosis. cont management in the IMCU History Interval history: Patient seen and examined medical records reviewed Patient is scheduled for possible PEG placement by IR today No new events reported by the nursing Vital signs noted Hospitalist Physical - Constitutional Vitals: Temp Pulse Resp BP Pulse Ox 97.1 F L 101 H 21 107/68 99 05/21/18 04:00 05/21/18 08:00 05/21/18 08:00 05/21/18 08:00 05/21/18 09:29 General appearance: Present: no acute distress, well-nourished, obese - EENT Eyes: Present: PERRL, EOM intact - Respiratory Respiratory effort: normal, labored Respiratory: bilateral: diminished, negative: rales, rhonchi, wheezing - Cardiovascular Rhythm: regular Heart Sounds: Present: S1 & S2 - Extremities Extremities: no ischemia, No edema - Abdominal General gastrointestinal: soft, non-tender, non-distended, normal bowel sounds - Integumentary Integumentary: Present: clear, warm - Psychiatric Psychiatric: appropriate mood/affect, other (confused at times) - Neurologic Neurologic: other ( right-sided residual weakness) Results - Labs CBC & Chem 7: 05/19/18 05:00 05/20/18 09:51 Labs: Laboratory Last Values WBC 9.6 K/mm3 (4.5-11.0) 05/19/18 05:00 RBC 3.37 M/mm3 (3.65-5.03) L 05/19/18 05:00 Hgb 7.7 gm/dl (11.8-15.2) L 05/19/18 05:00 Hct 24.3 % (35.5-45.6) L 05/19/18 05:00 MCV 72 fl (84-94) L 05/19/18 05:00 MCH 23 pg (28-32) L 05/19/18 05:00 MCHC 32 % (32-34) 05/19/18 05:00 RDW 23.9 % (13.2-15.2) H 05/19/18 05:00 Plt Count 198 K/mm3 (140-440) 05/19/18 05:00 Lymph % (Auto) 10.8 % (13.4-35.0) L 05/19/18 05:00 [place] % (Auto) 5.1 % (0.0-7.3) 05/19/18 05:00 Eos % (Auto) 1.4 % (0.0-4.3) 05/19/18 05:00 Baso % (Auto) 0.5 % (0.0-1.8) 05/19/18 05:00 Lymph # 1.0 K/mm3 (1.2-5.4) L 05/19/18 05:00 [place] # 0.5 K/mm3 (0.0-0.8) 05/19/18 05:00 Eos # 0.1 K/mm3 (0.0-0.4) 05/19/18 05:00 Baso # 0.0 K/mm3 (0.0-0.1) 05/19/18 05:00 Add Manual Diff Complete 05/11/18 14:09 Total Counted 100 05/11/18 14:09 Seg Neutrophils % 82.2 % (40.0-70.0) H 05/19/18 05:00 Seg Neuts % (Manual) 49.0 % (40.0-70.0) 05/11/18 14:09 Band Neutrophils % 0 % 05/11/18 14:09 Lymphocytes % (Manual) 45.0 % (13.4-35.0) H 05/11/18 14:09 Reactive Lymphs % (Man) 0 % 05/11/18 14:09 Monocytes % (Manual) 4.0 % (0.0-7.3) 05/11/18 14:09 Eosinophils % (Manual) 1.0 % (0.0-4.3) 05/11/18 14:09 Basophils % (Manual) 1.0 % (0.0-1.8) 05/11/18 14:09 Metamyelocytes % 0 % 05/11/18 14:09 Myelocytes % 0 % 05/11/18 14:09 Promyelocytes % 0 % 05/11/18 14:09 Blast Cells % 0 % 05/11/18 14:09 Nucleated RBC % Not Reportable 05/11/18 14:09 Seg Neutrophils # 7.9 K/mm3 (1.8-7.7) H 05/19/18 05:00 Seg Neutrophils # Man 6.0 K/mm3 (1.8-7.7) 05/11/18 14:09 Band Neutrophils # 0.0 K/mm3 05/11/18 14:09 Lymphocytes # (Manual) 5.5 K/mm3 (1.2-5.4) H 05/11/18 14:09 Abs React Lymphs (Man) 0.0 K/mm3 05/11/18 14:09 Monocytes # (Manual) 0.5 K/mm3 (0.0-0.8) 05/11/18 14:09 Eosinophils # (Manual) 0.1 K/mm3 (0.0-0.4) 05/11/18 14:09 Basophils # (Manual) 0.1 K/mm3 (0.0-0.1) 05/11/18 14:09 Metamyelocytes # 0.0 K/mm3 05/11/18 14:09 Myelocytes # 0.0 K/mm3 05/11/18 14:09 Promyelocytes # 0.0 K/mm3 05/11/18 14:09 Blast Cells # 0.0 K/mm3 05/11/18 14:09 WBC Morphology Not Reportable 05/11/18 14:09 Hypersegmented Neuts Not Reportable 05/11/18 14:09 Hyposegmented Neuts Not Reportable 05/11/18 14:09 Hypogranular Neuts Not Reportable 05/11/18 14:09 Smudge Cells Not Reportable 05/11/18 14:09 Toxic Granulation Not Reportable 05/11/18 14:09 Toxic Vacuolation Not Reportable 05/11/18 14:09 Dohle Bodies Not Reportable 05/11/18 14:09 Pelger-Huet Anomaly Not Reportable 05/11/18 14:09 Alba Rods Not Reportable 05/11/18 14:09 Platelet Estimate Consistent w auto 05/11/18 14:09 Clumped Platelets Not Reportable 05/11/18 14:09 Plt Clumps, EDTA Not Reportable 05/11/18 14:09 Large Platelets Not Reportable 05/11/18 14:09 Giant Platelets Not Reportable 05/11/18 14:09 Platelet Satelliting Not Reportable 05/11/18 14:09 Plt Morphology Comment Not Reportable 05/11/18 14:09 RBC Morphology Not Reportable 05/11/18 14:09 Dimorphic RBCs Not Reportable 05/11/18 14:09 Polychromasia Few 05/11/18 14:09 Hypochromasia Not Reportable 05/11/18 14:09 Poikilocytosis Not Reportable 05/11/18 14:09 Anisocytosis 1+ 05/11/18 14:09 Microcytosis Not Reportable 05/11/18 14:09 Macrocytosis Not Reportable 05/11/18 14:09 Spherocytes Not Reportable 05/11/18 14:09 Pappenheimer Bodies Not Reportable 05/11/18 14:09 Sickle Cells Not Reportable 05/11/18 14:09 Target Cells Not Reportable 05/11/18 14:09 Tear Drop Cells Not Reportable 05/11/18 14:09 Ovalocytes Not Reportable 05/11/18 14:09 Helmet Cells Not Reportable 05/11/18 14:09 Mccoy-Duncombe Bodies Not Reportable 05/11/18 14:09 [place] Rings Not Reportable 05/11/18 14:09 Jazmin Cells Not Reportable 05/11/18 14:09 Bite Cells Not Reportable 05/11/18 14:09 Crenated Cell Not Reportable 05/11/18 14:09 Elliptocytes Not Reportable 05/11/18 14:09 Acanthocytes (Spur) Not Reportable 05/11/18 14:09 Rouleaux Not Reportable 05/11/18 14:09 Hemoglobin C Crystals Not Reportable 05/11/18 14:09 Schistocytes Not Reportable 05/11/18 14:09 Malaria parasites Not Reportable 05/11/18 14:09 James Bodies Not Reportable 05/11/18 14:09 Hem Pathologist Commnt No 05/11/18 14:09 PT 20.2 Sec. (12.2-14.9) H 05/19/18 05:00 INR 1.61 (0.87-1.13) H 05/19/18 05:00 APTT 30.3 Sec. (24.2-36.6) 05/07/18 10:37 POC ABG pH 7.372 (7.35-7.45) 05/14/18 10:36 POC ABG pCO2 31.8 (35-45) L 05/14/18 10:36 POC ABG pO2 83 (80-105) 05/14/18 10:36 POC ABG HCO3 18.5 05/14/18 10:36 POC ABG Total CO2 05/14/18 10:36 POC ABG O2 Sat 96 05/14/18 10:36 POC ABG Base Excess -7 05/14/18 10:36 FiO2 21 % 05/14/18 10:36 Sodium 146 mmol/L (137-145) H 05/20/18 09:51 Potassium 3.8 mmol/L (3.6-5.0) D 05/20/18 09:51 Chloride 119.2 mmol/L (98-107) H 05/20/18 09:51 Carbon Dioxide 17 mmol/L (22-30) L 05/20/18 09:51 Anion Gap 14 mmol/L 05/20/18 09:51 BUN 36 mg/dL (9-20) H 05/20/18 09:51 Creatinine 2.6 mg/dL (0.8-1.5) H 05/20/18 09:51 Estimated GFR 29 ml/min 05/20/18 09:51 BUN/Creatinine Ratio 14 % 05/20/18 09:51 Glucose 74 mg/dL (75-100) L 05/20/18 09:51 POC Glucose 100 (70-105) 05/21/18 06:29 Hemoglobin A1c 7.6 % (4-6) H 05/08/18 03:15 Osmolality 316 Mosm/kg 05/19/18 01:19 Lactic Acid 1.60 mmol/L (0.7-2.0) 05/07/18 13:21 Uric Acid 9.0 mg/dL (3.5-7.6) H 05/19/18 01:19 Calcium 7.0 mg/dL (8.4-10.2) L 05/20/18 09:51 Phosphorus 3.60 mg/dL (2.5-4.5) 05/09/18 01:00 Magnesium 2.30 mg/dL (1.7-2.3) 05/12/18 08:41 Total Bilirubin 0.50 mg/dL (0.1-1.2) 05/12/18 08:41 AST 15 units/L (5-40) 05/12/18 08:41 ALT 7 units/L (7-56) 05/12/18 08:41 Alkaline Phosphatase 106 units/L (35-129) 05/12/18 08:41 Total Protein 5.5 g/dL (6.3-8.2) L 05/12/18 08:41 Albumin 1.3 g/dL (3.9-5) L 05/12/18 08:41 Albumin/Globulin Ratio 0.3 % 05/12/18 08:41 Urine Color Yellow (Yellow) 05/07/18 12:20 Urine Turbidity Clear (Clear) 05/07/18 12:20 Urine pH 5.0 (5.0-7.0) 05/07/18 12:20 Ur Specific [place] 1.012 (1.003-1.030) 05/07/18 12:20 Urine Protein <15 mg/dl mg/dL (Negative) 05/07/18 12:20 Urine Glucose (UA) Neg mg/dL (Negative) 05/07/18 12:20 Urine Ketones Tr mg/dL (Negative) 05/07/18 12:20 Urine Blood Sm (Negative) 05/07/18 12:20 Urine Nitrite Neg (Negative) 05/07/18 12:20 Urine Bilirubin Neg (Negative) 05/07/18 12:20 Urine Urobilinogen < 2.0 mg/dL (<2.0) 05/07/18 12:20 Ur Leukocyte Esterase Neg (Negative) 05/07/18 12:20 Urine WBC (Auto) 3.0 /HPF (0.0-6.0) 05/07/18 12:20 Urine RBC (Auto) 7.0 /HPF (0.0-6.0) 05/07/18 12:20 U Epithel Cells (Auto) < 1.0 /HPF (0-13.0) 05/07/18 12:20 Urine Bacteria (Auto) 1+ /HPF (Negative) 05/07/18 12:20 Urine Mucus Few /HPF 05/07/18 12:20 Influenza A (Rapid) Negative (Negative) 05/12/18 Unknown Influenza A (RT-PCR) Negative (Negative) 05/12/18 Unknown Influenza B (Rapid) Negative (Negative) 05/12/18 Unknown Influenza B (RT-PCR) Negative (Negative) 05/12/18 Unknown Blood Type O POSITIVE 05/18/18 10:00 Antibody Screen Negative 05/18/18 10:00 Crossmatch See Detail 05/18/18 10:00 Nutrition/Malnutrition Assess - Dietary Evaluation Nutrition/Malnutrition Findings: Nutrition Notes Start: 05/08/18 09:32 Freq: Status: Active Protocol: Document 05/19/18 15:39 RM (Rec: 05/19/18 15:42 RM [id number]) Nutrition Notes Initial or Follow up Reassessment Current Diagnosis Acute Kidney Injury Coronary Artery Disease Diabetes Hypertension Respiratory Failure Stroke Hyperlipidemia Other Pertinent Diagnosis Sacral PU, Sepsis, DVT, GERD, AMS, Pneumonia Current Diet NPO after midnight Labs/Tests Reviewed Pertinent Medications Reviewed Height 5 ft 6 in Weight 86.3 kg [place] Body Weight (kg) 64.54 BMI 30.7 Weight change and time frame 6.45% wt loss X 11 days Subjective/Other Information PEG planned for today. Percent of energy/protein needs met: 0%/0% Burn Absent Trauma Absent #1 Nutrition Diagnosis Inadequate oral intake Diagnosis Progress(for reassessment Continues documentation) Is patient on ventilator? No Is Patient Ambulatory and/or Out of Bed No REE-([facility]-confined to bed) [phone] Calculation Used for Recommendations [facility] Additional Notes Protein needs: AdBW: 75 KG (1.2-1.5 g/kg) (90-113 g/day) Fluid needs: 1ml/ kcal Nutrition Intervention Change Diet Order: TF consult Nutrition Support: Resume Glucerna 1.2 at 65 ml/ hr w/water flush 100 ml/hr q 4 hr once PEG placed Kcal 1,872 Protein (gm) 94 Fluid (mL) 1,255 Goal #1 TF consult Anticipated Discharge Needs: Unable to determine at this time Follow-Up By: 05/21/18 Additional Comments Follow for TF consult
[2018-05-21] MEDS: PROTONIX IV SCH (10:45)
[2018-05-21 11:08] LABS: Calcium 7.1 mg/dL (8.4-10.2)
[2018-05-21] MEDS: SODIUM CHLORIDE FLUSH SYRINGE 10 ML IV SCH (11:20)
--- NOTE | 2018-05-21 13:04 | Event Note ---
Date: 05/21/18 Duodenal bx results negative for malignancy. GI will sign off, please call if needed.
[2018-05-21] MEDS: SODIUM BICARBONATE 100 MEQ in D5W 1,000 ML IV SCH (14:08)
[2018-05-21] MEDS ORDERED: PANCREAZE DR 10,500 UNIT FEEDTUBE PRN (18:45)
[2018-05-21] MEDS ORDERED: SIMPLE SYRUP FEEDTUBE PRN ×2 (18:45)
[2018-05-21] MEDS ORDERED: SODIUM BICARBONATE FEEDTUBE PRN (18:45)
--- NOTE | 2018-05-21 20:55 | Progress Note ---
Assessment and Plan Cultures: 05/07/18 Blood: no growth thus far 05/08/18: Urine: Jennifer albicans 05/12/18: Influenza PCR neg A/P: 78-year-old male past medical history of CVA, Type 2 diabetes, GERD, Asthma, Hyperlipedemia, Right total knee replacement, now admitted with: 1. SIRS vs Sepsis: noted fever at home, mild leukocytosis and tachycardia, resolved no fever x 2 days. Initially felt to be to be UTI however U/A was negative for a UTI, Urine culture is positive for Jennifer Albicans, Blood cultures show no growth thus far. Initial Chest xray shows no infiltrates. Influenza PCR negative. Received Cefepime for 5 days. Repeat CXR showed LLL aspiration pneumonia, likely aspiration pneumonitis; now on ceftriaxone and flagyl. Repeat CXR neg. Ct sinus neg. 2. ?Urinary Tract Infection: less likely, U/A is not consistent with a UTI, Urine culture is positive for Jennifer albicans, however this may be reflective o f colonization, Indwelling Martinez catheter placed 04/25/18 for urinary retention. 3. Acute encephalopathy: family states some confusion at home, currently not a baseline. Improving 4. Penicillin Allergy: anaphylactic reaction per family. Currently tolerating cephalosporin, continue to monitor closely. 5. Acute Respiratory Failure: Chest xray at bedside.Transferred to IMCU. 6. DEVIN: creat 2.2 worsening 7. Severe anemia: s/p transfusion yesterday Plan: - Continue Ceftriaxone and flagyl D7 of 7 - Aspiration precautions - Family considering PEG placement by IR will follow Vicky Maria MD Infectious Diseases Reference And Instruction Librarian [facility] ([facility]) M [phone] O [phone] Subjective Date of service: 05/21/18 Principal diagnosis: PEG Interval history: Patient is alert and interactive, talking, daughter at bedside. No fever x 2 days. ROS: limited due to dementia Objective - Exam Narrative Exam: General appearance: alert in NAD, conversant Eyes: anicteric sclerae, moist conjunctivae; no lid-lag; PERRLA HENT: Atraumatic; oropharynx thick whitish debris, normal hard and soft palate edentulous. Normal external ears. Neck: Trachea midline; supple, no thyromegaly or lymphadenopathy Lungs: CTA bridget CV: RRR Abdomen: Soft, non-tender; no masses or hepatosplenomegaly Extremities: Bridget leg edema Skin: Normal temperature, turgor and texture; no rash, ulcers or subcutaneous nodules Psych: alert pleasant Neuro:alert moving all ext - Constitutional Vitals: Vital Signs Temp Pulse Resp BP Pulse Ox 98.7 F 106 H 24 118/71 99 05/21/18 20:00 05/21/18 19:00 05/21/18 19:00 05/21/18 19:00 05/21/18 19:00 Temperature -Last 24 Hours Temperature 98.7 F Temperature 98.4 F Temperature 98 F Temperature 98 F Temperature 97.1 F - Labs CBC & Chem 7: 05/19/18 05:00 05/21/18 10:11 Labs: Abnormal lab results 05/20/18 05/21/18 05/21/18 Range/Units 23:41 10:11 16:15 Sodium 151 H (137-145) mmol/L Chloride 121.5 H (98-107) mmol/L Carbon Dioxide 19 L (22-30) mmol/L BUN 35 H (9-20) mg/dL Creatinine 2.7 H (0.8-1.5) mg/dL POC Glucose 63 L 110 H (70-105) Calcium 7.1 L (8.4-10.2) mg/dL
[2018-05-21] MEDS: SODIUM BICARBONATE IV ONE (20:58)
[2018-05-22] MEDS: SODIUM BICARBONATE 100 MEQ in D5W 1,000 ML IV SCH ×2 (02:09→18:09)
[2018-05-22 07:09] LABS: Hematocrit 21.3 % (35.5-45.6); Hemoglobin 6.7 gm/dl (11.8-15.2); Mean Corpuscular HGB Conc 32 % (32-34); Mean Corpuscular Volume 72 fl (84-94); Platelet Count 169 K/mm3 (140-440); Red Blood Count 2.96 M/mm3 (3.65-5.03)
[2018-05-22 07:17] LABS: Red Cell Distribution Width 25.5 % (13.2-15.2)
[2018-05-22 07:36] LABS: BUN/Creatinine Ratio 13; Blood Urea Nitrogen 36 mg/dL (9-20); Calcium 6.8 mg/dL (8.4-10.2); Hemolysis Index 5
[2018-05-22 07:58] LABS: Alanine Aminotransferase < 5 units/L (7-56)
[2018-05-22] MEDS ORDERED: NACL 0.9% 500 ML 500 ML IV ONE (08:08)
--- NOTE | 2018-05-22 08:08 | Progress Note ---
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 --DEVIN, likely vasomotor nephropathy, worsening renal function Nephrology following, gentle hydration, avoid nephrotoxins --Chronic left hydronephrosis, atrophic left kidney Extensively evaluated by urology during previous admission --Hyperglycemia/type 2 diabetes mellitus Accu-Chek sliding scale coverage and ADA diet, insulin as needed --Acute metabolic encephalopathy; back to baseline mentally alert and awake likely multifactorial.Head CT scan on 05/12/18 neg --Hypokalemia; resolved --Hypernatremia Likely secondary to dehydration IVF changed to D/W, will monitor --Severe protein calorie malnutrition -tube feeding via dobhoff discontinued due to aspiration -cont dextrose IVF ,Slip Cover Operator following --H/O CVA with right-sided hemiparesis cont supportive care --Chronic urinary retention; patient follows with urology cont durán catheter --Physical deconditioning cont fall precautions PT/OT , recommend acute/subacute rehabilitation Patient's family refused --DVT prophylaxis with SCD Pharmacologic anticoagulation due to chronic anemia with high risk for bleed Patient stable to be transferred out of IMCU to [facility] unit today History Interval history: Patient seen and examined medical records reviewed GI and INR unable to place PEG secondary to profound We'll consult surgery Patient is more alert and awake Chronically ill-looking Daughter at the bedside No new events reported by the nursing Vital signs reviewed Hospitalist Physical - Constitutional Vitals: Temp Pulse Resp BP Pulse Ox 99.4 F 99 H 16 105/63 98 05/22/18 04:00 05/22/18 06:00 05/22/18 06:00 05/22/18 06:00 05/22/18 07:41 General appearance: Present: no acute distress, well-nourished, obese - EENT Eyes: Present: PERRL, EOM intact - Neck Neck: Present: supple, normal ROM - Respiratory Respiratory effort: normal Respiratory: bilateral: diminished, negative: rales, rhonchi, wheezing - Cardiovascular Rhythm: regular Heart Sounds: Present: S1 & S2 - Extremities Extremities: no ischemia, No edema - Abdominal General gastrointestinal: soft, non-tender, non-distended, normal bowel sounds - Integumentary Integumentary: Present: clear, warm - Psychiatric Psychiatric: appropriate mood/affect, other (minimally communicative) - Neurologic Neurologic: other (residual right-sided weakness) Results - Labs CBC & Chem 7: 05/22/18 06:52 05/22/18 06:52 Labs: Laboratory Last Values WBC 8.9 K/mm3 (4.5-11.0) 05/22/18 06:52 RBC 2.96 M/mm3 (3.65-5.03) L 05/22/18 06:52 Hgb 6.7 gm/dl (11.8-15.2) L 05/22/18 06:52 Hct 21.3 % (35.5-45.6) L 05/22/18 06:52 MCV 72 fl (84-94) L 05/22/18 06:52 MCH 23 pg (28-32) L 05/22/18 06:52 MCHC 32 % (32-34) 05/22/18 06:52 RDW 25.5 % (13.2-15.2) H 05/22/18 06:52 Plt Count 169 K/mm3 (140-440) 05/22/18 06:52 Lymph % (Auto) 10.8 % (13.4-35.0) L 05/19/18 05:00 Edgar % (Auto) 5.1 % (0.0-7.3) 05/19/18 05:00 Eos % (Auto) 1.4 % (0.0-4.3) 05/19/18 05:00 Baso % (Auto) 0.5 % (0.0-1.8) 05/19/18 05:00 Lymph # 1.0 K/mm3 (1.2-5.4) L 05/19/18 05:00 Edgar # 0.5 K/mm3 (0.0-0.8) 05/19/18 05:00 Eos # 0.1 K/mm3 (0.0-0.4) 05/19/18 05:00 Baso # 0.0 K/mm3 (0.0-0.1) 05/19/18 05:00 Add Manual Diff Complete 05/11/18 14:09 Total Counted 100 05/11/18 14:09 Seg Neutrophils % 82.2 % (40.0-70.0) H 05/19/18 05:00 Seg Neuts % (Manual) 49.0 % (40.0-70.0) 05/11/18 14:09 Band Neutrophils % 0 % 05/11/18 14:09 Lymphocytes % (Manual) 45.0 % (13.4-35.0) H 05/11/18 14:09 Reactive Lymphs % (Man) 0 % 05/11/18 14:09 Monocytes % (Manual) 4.0 % (0.0-7.3) 05/11/18 14:09 Eosinophils % (Manual) 1.0 % (0.0-4.3) 05/11/18 14:09 Basophils % (Manual) 1.0 % (0.0-1.8) 05/11/18 14:09 Metamyelocytes % 0 % 05/11/18 14:09 Myelocytes % 0 % 05/11/18 14:09 Promyelocytes % 0 % 05/11/18 14:09 Blast Cells % 0 % 05/11/18 14:09 Nucleated RBC % Not Reportable 05/11/18 14:09 Seg Neutrophils # 7.9 K/mm3 (1.8-7.7) H 05/19/18 05:00 Seg Neutrophils # Man 6.0 K/mm3 (1.8-7.7) 05/11/18 14:09 Band Neutrophils # 0.0 K/mm3 05/11/18 14:09 Lymphocytes # (Manual) 5.5 K/mm3 (1.2-5.4) H 05/11/18 14:09 Abs React Lymphs (Man) 0.0 K/mm3 05/11/18 14:09 Monocytes # (Manual) 0.5 K/mm3 (0.0-0.8) 05/11/18 14:09 Eosinophils # (Manual) 0.1 K/mm3 (0.0-0.4) 05/11/18 14:09 Basophils # (Manual) 0.1 K/mm3 (0.0-0.1) 05/11/18 14:09 Metamyelocytes # 0.0 K/mm3 05/11/18 14:09 Myelocytes # 0.0 K/mm3 05/11/18 14:09 Promyelocytes # 0.0 K/mm3 05/11/18 14:09 Blast Cells # 0.0 K/mm3 05/11/18 14:09 WBC Morphology Not Reportable 05/11/18 14:09 Hypersegmented Neuts Not Reportable 05/11/18 14:09 Hyposegmented Neuts Not Reportable 05/11/18 14:09 Hypogranular Neuts Not Reportable 05/11/18 14:09 Smudge Cells Not Reportable 05/11/18 14:09 Toxic Granulation Not Reportable 05/11/18 14:09 Toxic Vacuolation Not Reportable 05/11/18 14:09 Dohle Bodies Not Reportable 05/11/18 14:09 Pelger-Huet Anomaly Not Reportable 05/11/18 14:09 Alba Rods Not Reportable 05/11/18 14:09 Platelet Estimate Consistent w auto 05/11/18 14:09 Clumped Platelets Not Reportable 05/11/18 14:09 Plt Clumps, EDTA Not Reportable 05/11/18 14:09 Large Platelets Not Reportable 05/11/18 14:09 Giant Platelets Not Reportable 05/11/18 14:09 Platelet Satelliting Not Reportable 05/11/18 14:09 Plt Morphology Comment Not Reportable 05/11/18 14:09 RBC Morphology Not Reportable 05/11/18 14:09 Dimorphic RBCs Not Reportable 05/11/18 14:09 Polychromasia Few 05/11/18 14:09 Hypochromasia Not Reportable 05/11/18 14:09 Poikilocytosis Not Reportable 05/11/18 14:09 Anisocytosis 1+ 05/11/18 14:09 Microcytosis Not Reportable 05/11/18 14:09 Macrocytosis Not Reportable 05/11/18 14:09 Spherocytes Not Reportable 05/11/18 14:09 Pappenheimer Bodies Not Reportable 05/11/18 14:09 Sickle Cells Not Reportable 05/11/18 14:09 Target Cells Not Reportable 05/11/18 14:09 Tear Drop Cells Not Reportable 05/11/18 14:09 Ovalocytes Not Reportable 05/11/18 14:09 Helmet Cells Not Reportable 05/11/18 14:09 Mccoy-Drumright Bodies Not Reportable 05/11/18 14:09 [place] Rings Not Reportable 05/11/18 14:09 Jazmin Cells Not Reportable 05/11/18 14:09 Bite Cells Not Reportable 05/11/18 14:09 Crenated Cell Not Reportable 05/11/18 14:09 Elliptocytes Not Reportable 05/11/18 14:09 Acanthocytes (Spur) Not Reportable 05/11/18 14:09 Rouleaux Not Reportable 05/11/18 14:09 Hemoglobin C Crystals Not Reportable 05/11/18 14:09 Schistocytes Not Reportable 05/11/18 14:09 Malaria parasites Not Reportable 05/11/18 14:09 James Bodies Not Reportable 05/11/18 14:09 Hem Pathologist Commnt No 05/11/18 14:09 PT 20.2 Sec. (12.2-14.9) H 05/19/18 05:00 INR 1.61 (0.87-1.13) H 05/19/18 05:00 APTT 30.3 Sec. (24.2-36.6) 05/07/18 10:37 POC ABG pH 7.372 (7.35-7.45) 05/14/18 10:36 POC ABG pCO2 31.8 (35-45) L 05/14/18 10:36 POC ABG pO2 83 (80-105) 05/14/18 10:36 POC ABG HCO3 18.5 05/14/18 10:36 POC ABG Total CO2 19 05/14/18 10:36 POC ABG O2 Sat 96 05/14/18 10:36 POC ABG Base Excess -7 05/14/18 10:36 FiO2 21 % 05/14/18 10:36 Sodium 151 mmol/L (137-145) H 05/22/18 06:52 Potassium 3.7 mmol/L (3.6-5.0) 05/22/18 06:52 Chloride 121.6 mmol/L (98-107) H 05/22/18 06:52 Carbon Dioxide 20 mmol/L (22-30) L 05/22/18 06:52 Anion Gap 13 mmol/L 05/22/18 06:52 BUN 36 mg/dL (9-20) H 05/22/18 06:52 Creatinine 2.7 mg/dL (0.8-1.5) H 05/22/18 06:52 Estimated GFR 28 ml/min 05/22/18 06:52 BUN/Creatinine Ratio 13 % 05/22/18 06:52 Glucose 128 mg/dL (75-100) H 05/22/18 06:52 POC Glucose 146 (70-105) H 05/22/18 05:39 Hemoglobin A1c 7.6 % (4-6) H 05/08/18 03:15 Osmolality 316 Mosm/kg 05/19/18 01:19 Lactic Acid 1.60 mmol/L (0.7-2.0) 05/07/18 13:21 Uric Acid 9.0 mg/dL (3.5-7.6) H 05/19/18 01:19 Calcium 6.8 mg/dL (8.4-10.2) L 05/22/18 06:52 Phosphorus 3.60 mg/dL (2.5-4.5) 05/09/18 01:00 Magnesium 1.80 mg/dL (1.7-2.3) 05/22/18 06:52 Total Bilirubin 0.30 mg/dL (0.1-1.2) 05/22/18 06:52 AST 8 units/L (5-40) 05/22/18 06:52 ALT < 5 units/L (7-56) L 05/22/18 06:52 Alkaline Phosphatase 56 units/L (35-129) 05/22/18 06:52 Total Protein 4.6 g/dL (6.3-8.2) L 05/22/18 06:52 Albumin 1.0 g/dL (3.9-5) L 05/22/18 06:52 Albumin/Globulin Ratio 0.3 % 05/22/18 06:52 Urine Color Yellow (Yellow) 05/07/18 12:20 Urine Turbidity Clear (Clear) 05/07/18 12:20 Urine pH 5.0 (5.0-7.0) 05/07/18 12:20 Ur Specific [place] 1.012 (1.003-1.030) 05/07/18 12:20 Urine Protein <15 mg/dl mg/dL (Negative) 05/07/18 12:20 Urine Glucose (UA) Neg mg/dL (Negative) 05/07/18 12:20 Urine Ketones Tr mg/dL (Negative) 05/07/18 12:20 Urine Blood Sm (Negative) 05/07/18 12:20 Urine Nitrite Neg (Negative) 05/07/18 12:20 Urine Bilirubin Neg (Negative) 05/07/18 12:20 Urine Urobilinogen < 2.0 mg/dL (<2.0) 05/07/18 12:20 Ur Leukocyte Esterase Neg (Negative) 05/07/18 12:20 Urine WBC (Auto) 3.0 /HPF (0.0-6.0) 05/07/18 12:20 Urine RBC (Auto) 7.0 /HPF (0.0-6.0) 05/07/18 12:20 U Epithel Cells (Auto) < 1.0 /HPF (0-13.0) 05/07/18 12:20 Urine Bacteria (Auto) 1+ /HPF (Negative) 05/07/18 12:20 Urine Mucus Few /HPF 05/07/18 12:20 Influenza A (Rapid) Negative (Negative) 05/12/18 Unknown Influenza A (RT-PCR) Negative (Negative) 05/12/18 Unknown Influenza B (Rapid) Negative (Negative) 05/12/18 Unknown Influenza B (RT-PCR) Negative (Negative) 05/12/18 Unknown Blood Type O POSITIVE 05/18/18 10:00 Antibody Screen Negative 05/18/18 10:00 Crossmatch See Detail 05/18/18 10:00 Nutrition/Malnutrition Assess - Dietary Evaluation Nutrition/Malnutrition Findings: Nutrition Notes Start: 05/08/18 0 9:32 Freq: Status: Active Protocol: Document 05/21/18 13:34 RM (Rec: 05/21/18 13:41 RM [id number]) Nutrition Notes Initial or Follow up Reassessment Current Diagnosis Acute Kidney Injury Coronary Artery Disease Diabetes Sepsis Hypertension Respiratory Failure Stroke Hyperlipidemia Other Pertinent Diagnosis Encephalopathy,Bilat edema, Sacral PU,DVT, GERD, AMS, Pneu Current Diet NPO after midnight Labs/Tests Na 151 Pertinent Medications Reviewed Height 5 ft 6 in Weight 97.5 kg [place] Body Weight (kg) 64.54 BMI 34.7 Weight change and time frame Wt increase likely d/t edema Subjective/Other Information GI and IR unable to place PEG last visit. Per nurse PEG is planned for today. Percent of energy/protein needs met: 0%/0% Burn Absent Trauma Absent #1 Nutrition Diagnosis Inadequate oral intake Diagnosis Progress(for reassessment Continues documentation) Is patient on ventilator? No Is Patient Ambulatory and/or Out of Bed No REE-([facility]-confined to bed) 1958.816 Calculation Used for Recommendations [facility] Additional Notes Protein needs: AdBW: 75 KG (1.2-1.5 g/kg) (90-113 g/day) Fluid needs: 1ml/ kcal Nutrition Intervention Change Diet Order: TF consult Nutrition Support: Resume Glucerna 1.2 at 65 ml/ hr. Water flush of 150 ml/hr q 4 hr until hypernatremia resolves once PEG placed. Water flush of 100 mls q 4 hrs after hypernatremia resolves. Kcal 1,872 Protein (gm) 94 Fluid (mL) 1,255 Goal #1 TF consult Anticipated Discharge Needs: Unable to determine at this time Follow-Up By: 05/26/18 Additional Comments Follow for TF consult
[2018-05-22 08:58] LABS: Total Cells Counted 100
[2018-05-22 08:59] LABS: Basophils % (Manual) 0 % (0.0-1.8); Eosinophils % (Manual) 0 % (0.0-4.3)
[2018-05-22 09:00] LABS: Anisocytosis 1+; Hypochromasia Few; Ovalocytes Few; Platelet Estimate Consistent w Auto; Poikilocytosis 1+
--- NOTE | 2018-05-22 10:43 | Progress Note ---
Assessment and Plan Cultures: 05/07/18 Blood: no growth thus far 05/08/18: Urine: Jennifer albicans 05/12/18: Influenza PCR neg A/P: 78-year-old male past medical history of CVA, Type 2 diabetes, GERD, Asthma, Hyperlipedemia, Right total knee replacement, now admitted with: 1. SIRS vs Sepsis: noted fever at home, mild leukocytosis and tachycardia, resolved no fever x 3 days. Initially felt to be to be UTI however U/A was negative for a UTI, Urine culture is positive for Jennifer Albicans, Blood cultures show no growth thus far. Initial Chest xray shows no infiltrates. Influenza PCR negative. Received Cefepime for 5 days. Repeat CXR showed LLL aspiration pneumonia, likely aspiration pneumonitis; now on ceftriaxone and flagyl. Repeat CXR neg. Ct sinus neg. 2. ?Urinary Tract Infection: less likely, U/A is not consistent with a UTI, Urine culture is positive for Jennifer albicans, however this may be reflective o f colonization, Indwelling Martinez catheter placed 04/25/18 for urinary retention. 3. Acute encephalopathy: family states some confusion at home, currently not a baseline. Improving 4. Penicillin Allergy: anaphylactic reaction per family. Currently tolerating cephalosporin, continue to monitor closely. 5. Acute Respiratory Failure: Chest xray at bedside.Transferred to IMCU. 6. DEVIN: creat 2.2 worsening 7. Severe anemia: s/p transfusion yesterday Plan: - completed Ceftriaxone and flagyl D7 of 7 - Aspiration precautions - anemia per medicine Will sign off please call us with questions Vicky Maria MD Infectious Diseases [employer] [facility] ([facility]) [phone] O [phone] Subjective Date of service: 05/22/18 Principal diagnosis: PEG Interval history: Patient is alert and interactive, daughter at bedside. No fever x 3 days. ROS: limited due to dementia Objective - Exam Narrative Exam: General appearance: alert in NAD, conversant Eyes: anicteric sclerae, moist conjunctivae; no lid-lag; PERRLA HENT: Atraumatic; oropharynx thick whitish debris, normal hard and soft palate edentulous. Normal external ears. Neck: Trachea midline; supple, no thyromegaly or lymphadenopathy Lungs: CTA bridget CV: RRR Abdomen: Soft, non-tender; no masses or hepatosplenomegaly Extremities: Bridget leg edema Skin: Normal temperature, turgor and texture; no rash, ulcers or subcutaneous nodules Psych: alert pleasant Neuro:alert moving all ext - Constitutional Vitals: Vital Signs Temp Pulse Resp BP Pulse Ox 98.6 F 99 H 16 105/63 98 05/22/18 08:00 05/22/18 06:00 05/22/18 06:00 05/22/18 06:00 05/22/18 07:41 Temperature -Last 24 Hours Temperature 98.6 F Temperature 99.4 F Temperature 98.5 F Temperature 98.7 F Temperature 98.4 F Temperature 98 F - Labs CBC & Chem 7: 05/22/18 06:52 05/22/18 06:52 Labs: Abnormal lab results 05/21/18 05/21/18 05/22/18 Range/Units 10:11 16:15 00:17 RBC (3.65-5.03) M/mm3 Hgb (11.8-15.2) gm/dl Hct (35.5-45.6) % MCV (84-94) fl MCH (28-32) pg RDW (13.2-15.2) % Seg Neuts % (Manual) (40.0-70.0) % Lymphocytes % (Manual) (13.4-35.0) % Seg Neutrophils # Man (1.8-7.7) K/mm3 Lymphocytes # (Manual) (1.2-5.4) K/mm3 Sodium 151 H (137-145) mmol/L Chloride 121.5 H (98-107) mmol/L Carbon Dioxide 19 L (22-30) mmol/L BUN 35 H (9-20) mg/dL Creatinine 2.7 H (0.8-1.5) mg/dL Glucose (75-100) mg/dL POC Glucose 110 H 152 H (70-105) Calcium 7.1 L (8.4-10.2) mg/dL ALT (7-56) units/L Total Protein (6.3-8.2) g/dL Albumin (3.9-5) g/dL 05/22/18 05/22/18 05/22/18 Range/Units 05:39 06:52 06:52 RBC 2.96 L (3.65-5.03) M/mm3 Hgb 6.7 L (11.8-15.2) gm/dl Hct 21.3 L (35.5-45.6) % MCV 72 L (84-94) fl MCH 23 L (28-32) pg RDW 25.5 H (13.2-15.2) % Seg Neuts % (Manual) 97.0 H (40.0-70.0) % Lymphocytes % (Manual) 2.0 L (13.4-35.0) % Seg Neutrophils # Man 8.6 H (1.8-7.7) K/mm3 Lymphocytes # (Manual) 0.2 L (1.2-5.4) K/mm3 Sodium 151 H (137-145) mmol/L Chloride 121.6 H (98-107) mmol/L Carbon Dioxide 20 L (22-30) mmol/L BUN 36 H (9-20) mg/dL Creatinine 2.7 H (0.8-1.5) mg/dL Glucose 128 H (75-100) mg/dL POC Glucose 146 H (70-105) Calcium 6.8 L (8.4-10.2) mg/dL ALT < 5 L (7-56) units/L Total Protein 4.6 L (6.3-8.2) g/dL Albumin 1.0 L (3.9-5) g/dL
[2018-05-22] MEDS: CARAFATE PO SCH ×2 (11:10→22:14)
[2018-05-22] MEDS: FEOSOL PO SCH ×4 (11:16→22:15)
[2018-05-22] MEDS ORDERED: NACL 0.9% 500 ML 500 ML IV NR (13:00)
[2018-05-22] MEDS: SODIUM CHLORIDE FLUSH SYRINGE 10 ML IV SCH ×4 (13:03→22:25)
--- NOTE | 2018-05-22 13:05 | XRay Report ---
ABDOMEN ONE VIEW INDICATION: Dobbhoff placement. COMPARISON: 05/14/2018. FINDINGS: Single, portable, frontal abdominal radiograph now demonstrates Dobbhoff tube tip about the distal stomach, pointing towards the right upper quadrant. Intrinsic stylet may also be present. Nonobstructive bowel gas pattern. EKG leads. Few bony degenerative changes. Subtle 2-3 mm right renal calculus seen. CONCLUSION: Dobbhoff tube tip may lie along the distal stomach with few other findings, as described. Thank you for the opportunity to participate in this patient's care.
--- NOTE | 2018-05-22 13:49 | Progress Note ---
Subjective Principal diagnosis: PEG Interval history: Patient was seen today for follow-up of multiple renal related issues renate encephalopathic Noted to be in acute renal failure Events of 24 hours vitals labs intake output medications were reviewed Past medical history: Reviewed Family history: Reviewed Social history: Reviewed Allergies: Reviewed Physical examination: Vitals: Reviewed HEENT: No pallor or icterus oral mucosa moist Neck: Supple no JVD no thyromegaly Chest: few basilar crackles Heart: Regular rate and rhythm S1-S2 heard no S3-S4 Abdomen: Soft nontender no voluntary guarding rigidity rebound Extremity: Dry skin less than 1+ peripheral edema Psychiatric: No evidence of agitation and aggression noted Dermatology: No petechial rashes Labs and x-rays: Reviewed from today Assessment and plan Acute renal failure, patient appears to have worsening in creatinine, unable to get oral feeding/PEG tube placement Follow labs , continue with IVF renal prognosis is garded Met acidosis to follow Chronic left-sided hydronephrosis with relatively atrophic left kidney, patient has been seen by urology in the prior admission Encephalopathy: Multi factor and the patient is 78-year-old admitted with prior history of CVA hemiparesis recurrent aspiration pneumonia free water deficit Hypernatremia requires more free water We'll continue to follow and make recommendation for renal standpoint Objective - Vital Signs Vital signs: Vital Signs - 12hr 05/22/18 05/22/18 05/22/18 02:00 03:00 04:00 Temperature 99.4 F Pulse Rate 104 H 95 H 103 H Pulse Rate [ 99 H From Monitor] Respiratory 19 23 18 Rate Blood Pressure 137/65 131/68 124/68 O2 Sat by Pulse 100 100 100 Oximetry 05/22/18 05/22/18 05/22/18 05:00 06:00 07:41 Temperature Pulse Rate 102 H 99 H Pulse Rate [ From Monitor] Respiratory 22 16 Rate Blood Pressure 116/65 105/63 O2 Sat by Pulse 99 100 98 Oximetry 05/22/18 08:00 Temperature 98.6 F Pulse Rate Pulse Rate [ From Monitor] Respiratory Rate Blood Pressure O2 Sat by Pulse Oximetry - Lab 05/27/18 14:35 05/28/18 04:49 Most recent lab results Calcium 6.8 mg/dL (8.4-10.2) L 05/22/18 06:52 Phosphorus 3.60 mg/dL (2.5-4.5) 05/09/18 01:00 Magnesium 1.80 mg/dL (1.7-2.3) 05/22/18 06:52 Medications & Allergies - Medications Allergies/Adverse Reactions: Allergies Penicillins Allergy (Verified 04/11/18 16:00) Unknown Home Medications: Home Medications Medication Instructions Recorded Confirmed Last Taken Type Clopidogrel Bisulfate [Plavix] 75 mg PO DAILY #0 09/21/17 05/07/18 04/24/18 12:00 History Famotidine [Pepcid] 20 mg PO DAILY #0 09/21/17 05/07/18 04/24/18 History 20mg Simvastatin 40 mg PO HS 09/21/17 05/07/18 04/24/18 08:00 History 20 mg Sucralfate [Carafate] 1 gram PO BID #0 09/21/17 05/07/18 04/24/18 12:00 History 1 gm Ferrous Sulfate [Feosol 325 MG tab] 325 mg PO BID #60 tablet 05/04/18 05/07/18 Unknown Rx Active Medications: Generic Name Dose Route Start Last Admin Trade Name Freq PRN Reason Stop Dose Admin Acetaminophen 650 mg 05/08/18 02:22 Tylenol PO Q4H PRN Pain MILD(1-3)/Fever >100.5/MACIAS Albuterol 2.5 mg 05/10/18 15:59 Proventil IH Q4HRT PRN Shortness Of Breath Lipase/Protease/Amylase 1 each 05/21/18 18:[address] 10,500 Unit FEEDTUBE PRN PRN For Clogged Feeding Tube Bisacodyl 10 mg 05/16/18 13:02 05/16/18 13:54 Dulcolax [place] 10 mg QDAY PRN Administration Constipation Dextrose 50 ml 05/19/18 05:05 D50w (25gm) Syringe IV PRN PRN Hypoglycemia Ferrous Sulfate 325 mg 05/08/18 10:00 05/22/18 11:16 Feosol PO Not Given BID FREDI Hydromorphone HCl 0.5 mg 05/08/18 02:22 Dilaudid IV Q3H PRN Pain , Severe (7-10) Sodium Bicarbonate 100 meq/ 1,100 mls @ 150 mls/hr 05/21/18 09:00 05/22/18 02:09 Dextrose IV 150 mls/hr DIRECT FREDI Administration Sodium Chloride 500 mls @ 0 mls/hr 05/22/18 13:00 Nacl 0.9% 500 Ml IV 05/22/18 23:59 ONCE NR As Directed Ondansetron HCl 4 mg 05/08/18 02:22 Zofran IV Q8H PRN Nausea And Vomiting Oxycodone/Acetaminophen 1 tab 05/08/18 02:22 Percocet 5/325 PO Q6H PRN Pain, Moderate (4-6) Pantoprazole Sodium 40 mg 05/16/18 14:00 05/21/18 10:45 Protonix IV 40 mg QDAY FREDI Administration Pravastatin Sodium 80 mg 05/08/18 22:00 05/21/18 22:09 Pravachol PO Not Given QHS FREDI Simple Syrup 15 ml 05/21/18 18:45 Simple Syrup FEEDTUBE PRN PRN Hypoglycemia Simple Syrup 30 ml 05/21/18 18:45 Simple Syrup FEEDTUBE PRN PRN Hypoglycemia Sodium Bicarbonate 325 mg 05/21/18 18:45 Sodium Bicarbonate FEEDTUBE PRN PRN For Clogged Feeding Tube Sodium Chloride 10 ml 05/08/18 10:00 05/22/18 13:03 Sodium Chloride Flush Syringe 10 Ml IV 10 ml BID FREDI Administration Sodium Chloride 10 ml 05/08/18 02:22 05/08/18 03:56 Sodium Chloride Flush Syringe 10 Ml IV 10 ml PRN PRN Administration LINE FLUSH Sucralfate 1 gm 05/08/18 10:00 05/22/18 11:10 Carafate PO Not Given BID FREDI
[2018-05-22] MEDS ORDERED: PANCREAZE DR 10,500 UNIT FEEDTUBE PRN (15:10)
[2018-05-22] MEDS ORDERED: SIMPLE SYRUP FEEDTUBE PRN ×2 (15:10)
[2018-05-22] MEDS ORDERED: SODIUM BICARBONATE FEEDTUBE PRN (15:10)
--- NOTE | 2018-05-22 15:32 | Consultation ---
History of Present Illness Consult date: 05/22/18 Reason for consult: other (PEG evaluation) Requesting physician: SIMIN YOUNGER Chief complaint: aspiration risk - History of present illness History of present illness: This is an 78 yo M with h/o of CVA who has been undergoing work up for sepsis with unclear source. Continues to be somewhat lethargic and confused. Speech has evaluated him and kept him NPO due to risk of aspiration. GI and IR unable to place PEG. Gen surg consulted to place PEG. Patient unable to participate. Information obtained from family, staff, chart. Past History Past Medical History: diabetes, hypertension, stroke Past Surgical History: total knee replacement Social history: lives with family, smoking Medications and Allergies Allergies Allergy/AdvReac Type Severity Reaction Status Date / Time Penicillins Allergy Unknown Verified 04/11/18 16:00 Home Medications Medication Instructions Recorded Confirmed Last Taken Type Clopidogrel Bisulfate [Plavix] 75 mg PO DAILY #0 09/21/17 05/07/18 04/24/18 12:00 History Famotidine [Pepcid] 20 mg PO DAILY #0 09/21/17 05/07/18 04/24/18 History 20mg Simvastatin 40 mg PO HS 09/21/17 05/07/18 04/24/18 08:00 History 20 mg Sucralfate [Carafate] 1 gram PO BID #0 09/21/17 05/07/18 04/24/18 12:00 History 1 gm Ferrous Sulfate [Feosol 325 MG tab] 325 mg PO BID #60 tablet 05/04/18 05/07/18 Unknown Rx Active Meds: Active Medications Acetaminophen (Tylenol) 650 mg PO Q4H PRN PRN Reason: Pain MILD(1-3)/Fever >100.5/MACIAS Albuterol (Proventil) 2.5 mg IH Q4HRT PRN PRN Reason: Shortness Of Breath Lipase/Protease/Amylase (Pancresarah Lew 10,500 Unit) 1 each FEEDTUBE PRN PRN PRN Reason: For Clogged Feeding Tube Lipase/Protease/Amylase (Rishi Lew 10,500 Unit) 1 each FEEDTUBE PRN PRN PRN Reason: For Clogged Feeding Tube Bisacodyl (Dulcolax) 10 mg [place] QDAY PRN PRN Reason: Constipation Last Admin: 05/16/18 13:54 Dose: 10 mg Documented by: Dextrose (D50w (25gm) Syringe) 50 ml IV PRN PRN PRN Reason: Hypoglycemia Ferrous Sulfate (Feosol) 325 mg PO BID [facility] Last Admin: 05/22/18 11:16 Dose: Not Given Documented by: Hydromorphone HCl (Dilaudid) 0.5 mg IV Q3H PRN PRN Reason: Pain , Severe (7-10) Sodium Bicarbonate 100 meq/ (Dextrose) 1,100 mls @ 150 mls/hr IV DIRECT [facility] Last Admin: 05/22/18 02:09 Dose: 150 mls/hr Documented by: Sodium Chloride (Nacl 0.9% 500 Ml) 500 mls @ 0 mls/hr IV ONCE NR Stop: 05/22/18 23:59 Ondansetron HCl (Zofran) 4 mg IV Q8H PRN PRN Reason: Nausea And Vomiting Oxycodone/Acetaminophen (Percocet 5/325) 1 tab PO Q6H PRN PRN Reason: Pain, Moderate (4-6) Pantoprazole Sodium (Protonix) 40 mg IV QDAY [facility] Last Admin: 05/21/18 10:45 Dose: 40 mg Documented by: Pravastatin Sodium (Pravachol) 80 mg PO QHS [facility] Last Admin: 05/21/18 22:09 Dose: Not Given Documented by: Simple Syrup (Simple Syrup) 15 ml FEEDTUBE PRN PRN PRN Reason: Hypoglycemia Simple Syrup (Simple Syrup) 30 ml FEEDTUBE PRN PRN PRN Reason: Hypoglycemia Simple Syrup (Simple Syrup) 15 ml FEEDTUBE PRN PRN PRN Reason: Hypoglycemia Simple Syrup (Simple Syrup) 30 ml FEEDTUBE PRN PRN PRN Reason: Hypoglycemia Sodium Bicarbonate (Sodium Bicarbonate) 325 mg FEEDTUBE PRN PRN PRN Reason: For Clogged Feeding Tube Sodium Bicarbonate (Sodium Bicarbonate) 325 mg FEEDTUBE PRN PRN PRN Reason: For Clogged Feeding Tube Sodium Chloride (Sodium Chloride Flush Syringe 10 Ml) 10 ml IV BID [facility] Last Admin: 05/22/18 13:03 Dose: 10 ml Documented by: Sodium Chloride (Sodium Chloride Flush Syringe 10 Ml) 10 ml IV PRN PRN PRN Reason: LINE FLUSH Last Admin: 05/08/18 03:56 Dose: 10 ml Documented by: Sucralfate (Carafate) 1 gm PO BID [facility] Last Admin: 05/22/18 11:10 Dose: Not Given Documented by: Review of Systems ROS unobtainable: due to mental status Exam Vital Signs Temp Pulse Resp BP Pulse Ox 99.0 F 109 H 28 H 110/64 97 05/07/18 10:07 05/07/18 10:07 05/07/18 10:07 05/07/18 10:07 05/07/18 10:07 - General physical appearance Positive: no distress, no pain, other (sleeping) - Respiratory Positive: normal expansion, normal respiratory effort, clear to auscultation - Cardiovascular Rhythm: regular - Abdomen Abdomen: Present: soft, bowel sounds normal. Absent: tender, distended, guarding, rigid, wound, surgical scars - Integumentary no rash, no growths, no abnormal pigmentation Results - Labs 05/22/18 06:52 05/22/18 06:52 Abnormal lab results 05/18/18 05/21/18 05/22/18 Range/Units 10:00 16:15 00:17 RBC (3.65-5.03) M/mm3 Hgb (11.8-15.2) gm/dl Hct (35.5-45.6) % MCV (84-94) fl MCH (28-32) pg RDW (13.2-15.2) % Seg Neuts % (Manual) (40.0-70.0) % Lymphocytes % (Manual) (13.4-35.0) % Seg Neutrophils # Man (1.8-7.7) K/mm3 Lymphocytes # (Manual) (1.2-5.4) K/mm3 Sodium (137-145) mmol/L Chloride (98-107) mmol/L Carbon Dioxide (22-30) mmol/L BUN (9-20) mg/dL Creatinine (0.8-1.5) mg/dL Glucose (75-100) mg/dL POC Glucose 110 H 152 H (70-105) Calcium (8.4-10.2) mg/dL ALT (7-56) units/L Total Protein (6.3-8.2) g/dL Albumin (3.9-5) g/dL Crossmatch See Detail 05/22/18 05/22/18 05/22/18 Range/Units 05:39 06:52 06:52 RBC 2.96 L (3.65-5.03) M/mm3 Hgb 6.7 L (11.8-15.2) gm/dl Hct 21.3 L (35.5-45.6) % MCV 72 L (84-94) fl MCH 23 L (28-32) pg RDW 25.5 H (13.2-15.2) % Seg Neuts % (Manual) 97.0 H (40.0-70.0) % Lymphocytes % (Manual) 2.0 L (13.4-35.0) % Seg Neutrophils # Man 8.6 H (1.8-7.7) K/mm3 Lymphocytes # (Manual) 0.2 L (1.2-5.4) K/mm3 Sodium 151 H (137-145) mmol/L Chloride 121.6 H (98-107) mmol/L Carbon Dioxide 20 L (22-30) mmol/L BUN 36 H (9-20) mg/dL Creatinine 2.7 H (0.8-1.5) mg/dL Glucose 128 H (75-100) mg/dL POC Glucose 146 H (70-105) Calcium 6.8 L (8.4-10.2) mg/dL ALT < 5 L (7-56) units/L Total Protein 4.6 L (6.3-8.2) g/dL Albumin 1.0 L (3.9-5) g/dL Crossmatch 05/22/18 Range/Units 10:08 RBC (3.65-5.03) M/mm3 Hgb (11.8-15.2) gm/dl Hct (35.5-45.6) % MCV (84-94) fl MCH (28-32) pg RDW (13.2-15.2) % Seg Neuts % (Manual) (40.0-70.0) % Lymphocytes % (Manual) (13.4-35.0) % Seg Neutrophils # Man (1.8-7.7) K/mm3 Lymphocytes # (Manual) (1.2-5.4) K/mm3 Sodium (137-145) mmol/L Chloride (98-107) mmol/L Carbon Dioxide (22-30) mmol/L BUN (9-20) mg/dL Creatinine (0.8-1.5) mg/dL Glucose (75-100) mg/dL POC Glucose (70-105) Calcium (8.4-10.2) mg/dL ALT (7-56) units/L Total Protein (6.3-8.2) g/dL Albumin (3.9-5) g/dL Crossmatch See Detail Diabetes panel 05/22/18 Range/Units 06:52 Sodium 151 H (137-145) mmol/L Potassium 3.7 (3.6-5.0) mmol/L Chloride 121.6 H (98-107) mmol/L Carbon Dioxide 20 L (22-30) mmol/L BUN 36 H (9-20) mg/dL Creatinine 2.7 H (0.8-1.5) mg/dL Glucose 128 H (75-100) mg/dL Calcium 6.8 L (8.4-10.2) mg/dL AST 8 (5-40) units/L ALT < 5 L (7-56) units/L Alkaline Phosphatase 56 (35-129) units/L Total Protein 4.6 L (6.3-8.2) g/dL Albumin 1.0 L (3.9-5) g/dL Calcium panel 05/22/18 Range/Units 06:52 Calcium 6.8 L (8.4-10.2) mg/dL Albumin 1.0 L (3.9-5) g/dL Pituitary panel 05/22/18 Range/Units 06:52 Sodium 151 H (137-145) mmol/L Potassium 3.7 (3.6-5.0) mmol/L Chloride 121.6 H (98-107) mmol/L Carbon Dioxide 20 L (22-30) mmol/L BUN 36 H (9-20) mg/dL Creatinine 2.7 H (0.8-1.5) mg/dL Glucose 128 H (75-100) mg/dL Calcium 6.8 L (8.4-10.2) mg/dL Adrenal panel 05/22/18 Range/Units 06:52 Sodium 151 H (137-145) mmol/L Potassium 3.7 (3.6-5.0) mmol/L Chloride 121.6 H (98-107) mmol/L Carbon Dioxide 20 L (22-30) mmol/L BUN 36 H (9-20) mg/dL Creatinine 2.7 H (0.8-1.5) mg/dL Glucose 128 H (75-100) mg/dL Calcium 6.8 L (8.4-10.2) mg/dL Total Bilirubin 0.30 (0.1-1.2) mg/dL AST 8 (5-40) units/L ALT < 5 L (7-56) units/L Alkaline Phosphatase 56 (35-129) units/L Total Protein 4.6 L (6.3-8.2) g/dL Albumin 1.0 L (3.9-5) g/dL - Imaging CT scan - abdomen: report reviewed, image reviewed CT scan - pelvis: report reviewed, image reviewed Assessment and Plan - Patient Problems (1) Dysphagia Current Visit: Yes Status: Acute Qualifiers: Dysphagia type: oropharyngeal phase Qualified Code(s): R13.12 - Dysphagia, oropharyngeal phase Plan to address problem: Patient appears to be an adequate candidate for laparoscopic assisted peg tube placement. Procedure, risks, benefits were explained to and daughter as patient is unable to give informed consent secondary to altered mental status. All questions were answered. Consent was obtained. We will hopefully be able to schedule this in the operating room next week. Please call with questions. Time=45min
[2018-05-22] MEDS: PROTONIX IV SCH (17:09)
[2018-05-22] MEDS: PRAVACHOL PO SCH (22:13)
[2018-05-23 05:19] LABS: Hemoglobin 8.4 gm/dl (11.8-15.2); Mean Corpuscular HGB Conc 30 % (32-34); Mean Corpuscular Volume 77 fl (84-94); Platelet Count 142 K/mm3 (140-440); Red Blood Count 3.64 M/mm3 (3.65-5.03)
[2018-05-23 05:28] LABS: Basophils # (Auto) 0.1 K/mm3 (0.0-0.1); Basophils % (Auto) 0.8 % (0.0-1.8); Eosinophils # (Auto) 0.1 K/mm3 (0.0-0.4); Lymphocytes # (Auto) 0.9 K/mm3 (1.2-5.4); Lymphocytes % (Auto) 9.4 % (13.4-35.0); Monocytes # (Auto) 0.4 K/mm3 (0.0-0.8); Monocytes % (Auto) 4.4 % (0.0-7.3); Red Cell Distribution Width 25.3 % (13.2-15.2)
[2018-05-23 05:56] LABS: Albumin 0.9 g/dL (3.9-5); BUN/Creatinine Ratio 13; Blood Urea Nitrogen 35 mg/dL (9-20); Calcium 6.5 mg/dL (8.4-10.2); Hemolysis Index 11
[2018-05-23 05:57] LABS: Alanine Aminotransferase < 5 units/L (7-56)
[2018-05-23] MEDS ORDERED: FERROUS SULFATE PO SCH (10:00)
[2018-05-23] MEDS: CARAFATE PO SCH ×2 (11:19→22:13)
[2018-05-23] MEDS: PREVACID SOLUTAB FEEDTUBE SCH (11:21)
[2018-05-23] MEDS: SODIUM CHLORIDE FLUSH SYRINGE 10 ML IV SCH ×3 (11:25→22:14)
--- NOTE | 2018-05-23 12:12 | Progress Note ---
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 --DEVIN, likely vasomotor nephropathy, worsening renal function Nephrology following, gentle hydration, avoid nephrotoxins --Chronic left hydronephrosis, atrophic left kidney Extensively evaluated by urology during previous admission --Hyperglycemia/type 2 diabetes mellitus Accu-Chek sliding scale coverage and ADA diet, insulin as needed --Acute metabolic encephalopathy; back to baseline mentally alert and awake likely multifactorial.Head CT scan on 05/12/18 neg --Hypokalemia; resolved --Hypernatremia Likely secondary to dehydration IVF changed to D/W, will monitor --Severe protein calorie malnutrition -tube feeding via dobhoff discontinued due to aspiration -cont dextrose IVF ,Repair Weaver following --H/O CVA with right-sided hemiparesis cont supportive care --Chronic urinary retention; patient follows with urology cont durán catheter --Physical deconditioning cont fall precautions PT/OT , recommend acute/subacute rehabilitation Patient's family refused --DVT prophylaxis with SCD No Pharmacologic anticoagulation due to chronic anemia with high risk for bleed History Interval history: Sincerely and examined medical records reviewed Patient is receiving Dobbhoff feeds tolerating well Sleeping easily awakens Vital signs noted The daughter at the bedside Hospitalist Physical - Constitutional Vitals: Temp Pulse Resp BP Pulse Ox 98.6 F 121 H 22 169/88 97 05/23/18 07:15 05/23/18 07:15 05/23/18 07:15 05/23/18 07:15 05/23/18 08:28 General appearance: Present: no acute distress, well-nourished, obese - EENT Eyes: Present: PERRL, EOM intact - Neck Neck: Present: supple, normal ROM - Respiratory Respiratory effort: normal, labored Respiratory: bilateral: diminished, negative: rales, rhonchi, wheezing - Cardiovascular Rhythm: regular Heart Sounds: Present: S1 & S2 - Extremities Extremities: no ischemia, No edema - Abdominal General gastrointestinal: soft, non-tender, non-distended, normal bowel sounds - Integumentary Integumentary: Present: clear, warm - Psychiatric Psychiatric: appropriate mood/affect, cooperative - Neurologic Neurologic: CNII-XII intact, moves all extremities Results - Labs CBC & Chem 7: 05/23/18 05:03 05/23/18 05:03 Labs: Laboratory Last Values WBC 9.6 K/mm3 (4.5-11.0) 05/23/18 05:03 RBC 3.64 M/mm3 (3.65-5.03) L 05/23/18 05:03 Hgb 8.4 gm/dl (11.8-15.2) L 05/23/18 05:03 Hct 28.0 % (35.5-45.6) L D 05/23/18 05:03 MCV 77 fl (84-94) L 05/23/18 05:03 MCH 23 pg (28-32) L 05/23/18 05:03 MCHC 30 % (32-34) L 05/23/18 05:03 RDW 25.3 % (13.2-15.2) H 05/23/18 05:03 Plt Count 142 K/mm3 (140-440) 05/23/18 05:03 Lymph % (Auto) 9.4 % (13.4-35.0) L 05/23/18 05:03 [place] % (Auto) 4.4 % (0.0-7.3) 05/23/18 05:03 Eos % (Auto) 1.0 % (0.0-4.3) 05/23/18 05:03 Baso % (Auto) 0.8 % (0.0-1.8) 05/23/18 05:03 Lymph # 0.9 K/mm3 (1.2-5.4) L 05/23/18 05:03 [place] # 0.4 K/mm3 (0.0-0.8) 05/23/18 05:03 Eos # 0.1 K/mm3 (0.0-0.4) 05/23/18 05:03 Baso # 0.1 K/mm3 (0.0-0.1) 05/23/18 05:03 Add Manual Diff Complete 05/22/18 06:52 Total Counted 100 05/22/18 06:52 Seg Neutrophils % 84.4 % (40.0-70.0) H 05/23/18 05:03 Seg Neuts % (Manual) 97.0 % (40.0-70.0) H 05/22/18 06:52 Band Neutrophils % 0 % 05/22/18 06:52 Lymphocytes % (Manual) 2.0 % (13.4-35.0) L 05/22/18 06:52 Reactive Lymphs % (Man) 0 % 05/22/18 06:52 Monocytes % (Manual) 1.0 % (0.0-7.3) 05/22/18 06:52 Eosinophils % (Manual) 0 % (0.0-4.3) 05/22/18 06:52 Basophils % (Manual) 0 % (0.0-1.8) 05/22/18 06:52 Metamyelocytes % 0 % 05/22/18 06:52 Myelocytes % 0 % 05/22/18 06:52 Promyelocytes % 0 % 05/22/18 06:52 Blast Cells % 0 % 05/22/18 06:52 Nucleated RBC % Not Reportable 05/22/18 06:52 Seg Neutrophils # 8.1 K/mm3 (1.8-7.7) H 05/23/18 05:03 Seg Neutrophils # Man 8.6 K/mm3 (1.8-7.7) H 05/22/18 06:52 Band Neutrophils # 0.0 K/mm3 05/22/18 06:52 Lymphocytes # (Manual) 0.2 K/mm3 (1.2-5.4) L 05/22/18 06:52 Abs React Lymphs (Man) 0.0 K/mm3 05/22/18 06:52 Monocytes # (Manual) 0.1 K/mm3 (0.0-0.8) 05/22/18 06:52 Eosinophils # (Manual) 0.0 K/mm3 (0.0-0.4) 05/22/18 06:52 Basophils # (Manual) 0.0 K/mm3 (0.0-0.1) 05/22/18 06:52 Metamyelocytes # 0.0 K/mm3 05/22/18 06:52 Myelocytes # 0.0 K/mm3 05/22/18 06:52 Promyelocytes # 0.0 K/mm3 05/22/18 06:52 Blast Cells # 0.0 K/mm3 05/22/18 06:52 WBC Morphology Not Reportable 05/22/18 06:52 Hypersegmented Neuts Not Reportable 05/22/18 06:52 Hyposegmented Neuts Not Reportable 05/22/18 06:52 Hypogranular Neuts Not Reportable 05/22/18 06:52 Smudge Cells Not Reportable 05/22/18 06:52 Toxic Granulation Not Reportable 05/22/18 06:52 Toxic Vacuolation Not Reportable 05/22/18 06:52 Dohle Bodies Not Reportable 05/22/18 06:52 Pelger-Huet Anomaly Not Reportable 05/22/18 06:52 Alba Rods Not Reportable 05/22/18 06:52 Platelet Estimate Consistent w auto 05/22/18 06:52 Clumped Platelets Not Reportable 05/22/18 06:52 Plt Clumps, EDTA Not Reportable 05/22/18 06:52 Large Platelets Not Reportable 05/22/18 06:52 Giant Platelets Not Reportable 05/22/18 06:52 Platelet Satelliting Not Reportable 05/22/18 06:52 Plt Morphology Comment Not Reportable 05/22/18 06:52 RBC Morphology Not Reportable 05/22/18 06:52 Dimorphic RBCs Not Reportable 05/22/18 06:52 Polychromasia Not Reportable 05/22/18 06:52 Hypochromasia Few 05/22/18 06:52 Poikilocytosis 1+ 05/22/18 06:52 Anisocytosis 1+ 05/22/18 06:52 Microcytosis Not Reportable 05/22/18 06:52 Macrocytosis Not Reportable 05/22/18 06:52 Spherocytes Not Reportable 05/22/18 06:52 Pappenheimer Bodies Not Reportable 05/22/18 06:52 Sickle Cells Not Reportable 05/22/18 06:52 Target Cells Not Reportable 05/22/18 06:52 Tear Drop Cells Not Reportable 05/22/18 06:52 Ovalocytes Few 05/22/18 06:52 Helmet Cells Not Reportable 05/22/18 06:52 Mccoy-Ketchum Bodies Not Reportable 05/22/18 06:52 [place]lin Rings Not Reportable 05/22/18 06:52 Saxton Cells Not Reportable 05/22/18 06:52 Bite Cells Not Reportable 05/22/18 06:52 Crenated Cell Not Reportable 05/22/18 06:52 Elliptocytes Not Reportable 05/22/18 06:52 Acanthocytes (Spur) Not Reportable 05/22/18 06:52 Rouleaux Not Reportable 05/22/18 06:52 Hemoglobin C Crystals Not Reportable 05/22/18 06:52 Schistocytes Not Reportable 05/22/18 06:52 Malaria parasites Not Reportable 05/22/18 06:52 James Bodies Not Reportable 05/22/18 06:52 Hem Pathologist Commnt No 05/22/18 06:52 PT 20.2 Sec. (12.2-14.9) H 05/19/18 05:00 INR 1.61 (0.87-1.13) H 05/19/18 05:00 APTT 30.3 Sec. (24.2-36.6) 05/07/18 10:37 POC ABG pH 7.372 (7.35-7.45) 05/14/18 10:36 POC ABG pCO2 31.8 (35-45) L 05/14/18 10:36 POC ABG pO2 83 (80-105) 05/14/18 10:36 POC ABG HCO3 18.5 05/14/18 10:36 POC ABG Total CO2 19 05/14/18 10:36 POC ABG O2 Sat 96 05/14/18 10:36 POC ABG Base Excess -7 05/14/18 10:36 FiO2 21 % 05/14/18 10:36 Sodium 147 mmol/L (137-145) H 05/23/18 05:03 Potassium 3.6 mmol/L (3.6-5.0) 05/23/18 05:03 Chloride 117.6 mmol/L (98-107) H 05/23/18 05:03 Carbon Dioxide 21 mmol/L (22-30) L 05/23/18 05:03 Anion Gap 12 mmol/L 05/23/18 05:03 BUN 35 mg/dL (9-20) H 05/23/18 05:03 Creatinine 2.6 mg/dL (0.8-1.5) H 05/23/18 05:03 Estimated GFR 29 ml/min 05/23/18 05:03 BUN/Creatinine Ratio 13 % 05/23/18 05:03 Glucose 149 mg/dL (75-100) H 05/23/18 05:03 POC Glucose 181 (70-105) H 05/23/18 11:26 Hemoglobin A1c 7.6 % (4-6) H 05/08/18 03:15 Osmolality 316 Mosm/kg 05/19/18 01:19 Lactic Acid 1.60 mmol/L (0.7-2.0) 05/07/18 13:21 Uric Acid 9.0 mg/dL (3.5-7.6) H 05/19/18 01:19 Calcium 6.5 mg/dL (8.4-10.2) L 05/23/18 05:03 Phosphorus 3.90 mg/dL (2.5-4.5) 05/23/18 05:03 Magnesium 1.70 mg/dL (1.7-2.3) 05/23/18 05:03 Total Bilirubin 0.20 mg/dL (0.1-1.2) 05/23/18 05:03 AST 10 units/L (5-40) 05/23/18 05:03 ALT < 5 units/L (7-56) L 05/23/18 05:03 Alkaline Phosphatase 50 units/L (35-129) 05/23/18 05:03 Total Protein 4.2 g/dL (6.3-8.2) L 05/23/18 05:03 Albumin 0.9 g/dL (3.9-5) L 05/23/18 05:03 Albumin/Globulin Ratio 0.3 % 05/23/18 05:03 Urine Color Yellow (Yellow) 05/07/18 12:20 Urine Turbidity Clear (Clear) 05/07/18 12:20 Urine pH 5.0 (5.0-7.0) 05/07/18 12:20 Ur Specific [place] 1.012 (1.003-1.030) 05/07/18 12:20 Urine Protein <15 mg/dl mg/dL (Negative) 05/07/18 12:20 Urine Glucose (UA) Neg mg/dL (Negative) 05/07/18 12:20 Urine Ketones Tr mg/dL (Negative) 05/07/18 12:20 Urine Blood Sm (Negative) 05/07/18 12:20 Urine Nitrite Neg (Negative) 05/07/18 12:20 Urine Bilirubin Neg (Negative) 05/07/18 12:20 Urine Urobilinogen < 2.0 mg/dL (<2.0) 05/07/18 12:20 Ur Leukocyte Esterase Neg (Negative) 05/07/18 12:20 Urine WBC (Auto) 3.0 /HPF (0.0-6.0) 05/07/18 12:20 Urine RBC (Auto) 7.0 /HPF (0.0-6.0) 05/07/18 12:20 U Epithel Cells (Auto) < 1.0 /HPF (0-13.0) 05/07/18 12:20 Urine Bacteria (Auto) 1+ /HPF (Negative) 05/07/18 12:20 Urine Mucus Few /HPF 05/07/18 12:20 Immunofix Electrophor see below 05/19/18 01:19 Influenza A (Rapid) Negative (Negative) 05/12/18 Unknown Influenza A (RT-PCR) Negative (Negative) 05/12/18 Unknown Influenza B (Rapid) Negative (Negative) 05/12/18 Unknown Influenza B (RT-PCR) Negative (Negative) 05/12/18 Unknown Blood Type O POSITIVE 05/22/18 10:08 Antibody Screen Negative 05/22/18 10:08 Crossmatch See Detail 05/22/18 10:08 Nutrition/Malnutrition Assess - Dietary Evaluation Nutrition/Malnutrition Findings: Nutrition Notes Start: 05/08/18 09:32 Freq: Status: Active Protocol: Document 05/22/18 15:28 RM (Rec: 05/22/18 15:30 RM [id number]) Nutrition Notes Initial or Follow up Reassessment Current Diagnosis Acute Kidney Injury Coronary Artery Disease Diabetes Sepsis Hypertension Respiratory Failure Stroke Hyperlipidemia Other Pertinent Diagnosis Encephalopathy,Bilat edema, Sacral PU,DVT, GERD, AMS, Pneu Current Diet NPO after midnight Labs/Tests Na 151 Pertinent Medications Reviewed Height 5 ft 6 in Weight 99.1 kg [place] Body Weight (kg) 64.54 BMI 35.2 Subjective/Other Information Consulted for TF recommendation. PEG was not placed yesterday or today. Per nurse dobhoff was placed and stated that it is not clear whether dobhoff caused aspiration pneu previously. Burn Absent Trauma Absent #1 Nutrition Diagnosis Inadequate oral intake Diagnosis Progress(for reassessment Continues documentation) Is patient on ventilator? No Is Patient Ambulatory and/or Out of Bed No REE-([facility]-confined to bed) 99 Calculation Used for Recommendations [facility] Additional Notes Protein needs: AdBW: 75 KG (1.2-1.5 g/kg) (90-113 g/day) Fluid needs: 1ml/ kcal Nutrition Intervention Nutrition Support: Resume Glucerna 1.2 at 65 ml/ hr. Water flush of 150 ml/hr q 4 hr until hypernatremia resolves once PEG placed. Water flush of 100 mls q 4 hrs after hypernatremia resolves. Kcal 1,872 Protein (gm) 94 Fluid (mL) 1,255 Goal #1 Meet at least 75% of calorie and protein needs via TF Anticipated Discharge Needs: Unable to determine at this time Follow-Up By: 05/26/18 Additional Comments Follow for TF tolerance
--- NOTE | 2018-05-23 12:34 | Progress Note ---
Assessment and Plan Impression * Acute renal failure * Hypernatremia * CVA * Sepsis * Obstructive uropathy Recommendations * Serum creatinine seems to be trending down. * He currently has indwelling Martinez catheter in place * Continue gentle hydration * Continue free water through Dobbhoff every * Avoid nephrotoxins * Plans for PEG tube placement next week noted * Discussed with family members at bedside Subjective Date of service: 05/23/18 Principal diagnosis: PEG Interval history: Patient is awake and alert. Appears comfortable. Dobbhoff tube in place. Denies any shortness of breath. Objective - Vital Signs Vital signs: Vital Signs - 12hr 05/23/18 05/23/18 05/23/18 02:00 02:58 07:15 Temperature 98.9 F 98.6 F Pulse Rate 106 H 121 H Respiratory 22 22 Rate Blood Pressure 141/68 169/88 O2 Sat by Pulse 98 100 Oximetry 05/23/18 08:28 Temperature Pulse Rate Respiratory Rate Blood Pressure O2 Sat by Pulse 97 Oximetry - General Appearance General appearance: well-developed, well-nourished, appears stated age EENT: PERRL, mucous membranes moist Neck: no JVD, no thyromegaly, no carotid bruit, supple Respiratory: Present: Clear to Ascultation Cardiology: regular, normal heart rate, S1S2, no murmurs Gastrointestinal: normal, normoactive bowel sounds Integumentary: no rash, other (no edema) - Lab 05/23/18 05:03 05/23/18 05:03 Most recent lab results Calcium 6.5 mg/dL (8.4-10.2) L 05/23/18 05:03 Phosphorus 3.90 mg/dL (2.5-4.5) 05/23/18 05:03 Magnesium 1.70 mg/dL (1.7-2.3) 05/23/18 05:03 Medications & Allergies - Medications Allergies/Adverse Reactions: Allergies Penicillins Allergy (Verified 04/11/18 16:00) Unknown Home Medications: Home Medications Medication Instructions Recorded Confirmed Last Taken Type Clopidogrel Bisulfate [Plavix] 75 mg PO DAILY #0 09/21/17 05/07/18 04/24/18 12:00 History Famotidine [Pepcid] 20 mg PO DAILY #0 09/21/17 05/07/18 04/24/18 History 20mg Simvastatin 40 mg PO HS 09/21/17 05/07/18 04/24/18 08:00 History 20 mg Sucralfate [Carafate] 1 gram PO BID #0 09/21/17 05/07/18 04/24/18 12:00 History 1 gm Ferrous Sulfate [Feosol 325 MG tab] 325 mg PO BID #60 tablet 05/04/18 05/07/18 Unknown Rx Active Medications: Generic Name Dose Route Start Last Admin Trade Name Freq PRN Reason Stop Dose Admin Acetaminophen 650 mg 05/08/18 02:22 Tylenol PO Q4H PRN Pain MILD(1-3)/Fever >100.5/MACIAS Albuterol 2.5 mg 05/10/18 15:59 Proventil IH Q4HRT PRN Shortness Of Breath Lipase/Protease/Amylase 1 each 05/21/18 18:45 Pancreaze 10,500 Unit FEEDTUBE PRN PRN For Clogged Feeding Tube Bisacodyl 10 mg 05/16/18 13:02 05/16/18 13:54 Dulcolax MD 10 mg QDAY PRN Administration Constipation Dextrose 50 ml 05/19/18 05:05 D50w (25gm) Syringe IV PRN PRN Hypoglycemia Ferrous Sulfate 308 mg 05/23/18 22:00 Ferrous Sulfate PO BID FREDI Hydromorphone HCl 0.5 mg 05/08/18 02:22 Dilaudid IV Q3H PRN Pain , Severe (7-10) Sodium Bicarbonate 100 meq/ 1,100 mls @ 150 mls/hr 05/21/18 09:00 05/22/18 18:09 Dextrose IV 150 mls/hr DIRECT FREDI Administration Lansoprazole 30 mg 05/23/18 10:00 05/23/18 11:21 Prevacid Solutab FEEDTUBE 30 mg QDAY FREDI Administration Ondansetron HCl 4 mg 05/08/18 02:22 Zofran IV Q8H PRN Nausea And Vomiting Oxycodone/Acetaminophen 1 tab 05/08/18 02:22 Percocet 5/325 PO Q6H PRN Pain, Moderate (4-6) Pravastatin Sodium 80 mg 05/08/18 22:00 05/22/18 22:13 Pravachol PO 80 mg QHS FREDI Administration Simple Syrup 15 ml 05/21/18 18:45 Simple Syrup FEEDTUBE PRN PRN Hypoglycemia Simple Syrup 30 ml 05/21/18 18:45 Simple Syrup FEEDTUBE PRN PRN Hypoglycemia Sodium Bicarbonate 325 mg 05/21/18 18:45 Sodium Bicarbonate FEEDTUBE PRN PRN For Clogged Feeding Tube Sodium Chloride 10 ml 05/08/18 10:00 05/23/18 11:25 Sodium Chloride Flush Syringe 10 Ml IV 10 ml BID FREDI Administration Sodium Chloride 10 ml 05/08/18 02:22 05/08/18 03:56 Sodium Chloride Flush Syringe 10 Ml IV 10 ml PRN PRN Administration LINE FLUSH Sucralfate 1 gm 05/08/18 10:00 05/23/18 11:19 Carafate PO 1 gm BID FREDI Administration
[2018-05-23] MEDS ORDERED: D5W 1,000 ML with SODIUM BICARBONATE 50 MEQ IV SCH (13:00)
[2018-05-23] MEDS: PRAVACHOL PO SCH (22:13)
[2018-05-23] MEDS: FERROUS SULFATE PO SCH (22:13)
--- NOTE | 2018-05-24 07:33 | Progress Note ---
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 --DEVIN, likely vasomotor nephropathy, mild improvement Nephrology following, gentle hydration, avoid nephrotoxins --Chronic left hydronephrosis, atrophic left kidney Extensively evaluated by urology during previous admission --Hyperglycemia/type 2 diabetes mellitus Accu-Chek sliding scale coverage and ADA diet, insulin as needed --Acute metabolic encephalopathy; back to baseline mentally alert and awake likely multifactorial.Head CT scan on 05/12/18 neg --Hypokalemia; resolved --Hypernatremia Likely secondary to dehydration IVF changed to D/W, will monitor --Severe protein calorie malnutrition -tube feeding via dobhoff discontinued due to aspiration -cont dextrose IVF ,Intelligent Systems Engineer following --H/O CVA with right-sided hemiparesis cont supportive care --Chronic urinary retention; patient follows with urology cont durán catheter --Physical deconditioning cont fall precautions PT/OT , recommend acute/subacute rehabilitation Patient's family refused --DVT prophylaxis with SCD No Pharmacologic anticoagulation due to chronic anemia with high risk for bleed History Interval history: Patient seen and examined medical records reviewed Patient feels better no new complaints Receiving Dobbhoff feeds Alert and awake frail and not in acute distress., Vital signs reviewed Hospitalist Physical - Constitutional Vitals: Temp Pulse Resp BP Pulse Ox 98.7 F 111 H 22 158/66 99 05/24/18 00:09 05/23/18 19:30 05/24/18 00:09 05/24/18 00:09 05/23/18 19:30 General appearance: Present: no acute distress, well-nourished, obese - EENT Eyes: Present: PERRL, EOM intact - Neck Neck: Present: supple, normal ROM - Respiratory Respiratory effort: normal Respiratory: bilateral: diminished, negative: rales, rhonchi, wheezing - Cardiovascular Rhythm: regular Heart Sounds: Present: S1 & S2 - Extremities Extremities: no ischemia, No edema - Abdominal General gastrointestinal: soft, non-tender, non-distended, normal bowel sounds - Integumentary Integumentary: Present: clear, warm - Psychiatric Psychiatric: appropriate mood/affect, cooperative - Neurologic Neurologic: CNII-XII intact, moves all extremities Results - Labs CBC & Chem 7: 05/24/18 10:59 05/24/18 07:53 Labs: Laboratory Last Values WBC 9.6 K/mm3 (4.5-11.0) 05/23/18 05:03 RBC 3.64 M/mm3 (3.65-5.03) L 05/23/18 05:03 Hgb 8.4 gm/dl (11.8-15.2) L 05/23/18 05:03 Hct 28.0 % (35.5-45.6) L D 05/23/18 05:03 MCV 77 fl (84-94) L 05/23/18 05:03 MCH 23 pg (28-32) L 05/23/18 05:03 MCHC 30 % (32-34) L 05/23/18 05:03 RDW 25.3 % (13.2-15.2) H 05/23/18 05:03 Plt Count 142 K/mm3 (140-440) 05/23/18 05:03 Lymph % (Auto) 9.4 % (13.4-35.0) L 05/23/18 05:03 Menard % (Auto) 4.4 % (0.0-7.3) 05/23/18 05:03 Eos % (Auto) 1.0 % (0.0-4.3) 05/23/18 05:03 Baso % (Auto) 0.8 % (0.0-1.8) 05/23/18 05:03 Lymph # 0.9 K/mm3 (1.2-5.4) L 05/23/18 05:03 Menard # 0.4 K/mm3 (0.0-0.8) 05/23/18 05:03 Eos # 0.1 K/mm3 (0.0-0.4) 05/23/18 05:03 Baso # 0.1 K/mm3 (0.0-0.1) 05/23/18 05:03 Add Manual Diff Complete 05/22/18 06:52 Total Counted 100 05/22/18 06:52 Seg Neutrophils % 84.4 % (40.0-70.0) H 05/23/18 05:03 Seg Neuts % (Manual) 97.0 % (40.0-70.0) H 05/22/18 06:52 Band Neutrophils % 0 % 05/22/18 06:52 Lymphocytes % (Manual) 2.0 % (13.4-35.0) L 05/22/18 06:52 Reactive Lymphs % (Man) 0 % 05/22/18 06:52 Monocytes % (Manual) 1.0 % (0.0-7.3) 05/22/18 06:52 Eosinophils % (Manual) 0 % (0.0-4.3) 05/22/18 06:52 Basophils % (Manual) 0 % (0.0-1.8) 05/22/18 06:52 Metamyelocytes % 0 % 05/22/18 06:52 Myelocytes % 0 % 05/22/18 06:52 Promyelocytes % 0 % 05/22/18 06:52 Blast Cells % 0 % 05/22/18 06:52 Nucleated RBC % Not Reportable 05/22/18 06:52 Seg Neutrophils # 8.1 K/mm3 (1.8-7.7) H 05/23/18 05:03 Seg Neutrophils # Man 8.6 K/mm3 (1.8-7.7) H 05/22/18 06:52 Band Neutrophils # 0.0 K/mm3 05/22/18 06:52 Lymphocytes # (Manual) 0.2 K/mm3 (1.2-5.4) L 05/22/18 06:52 Abs React Lymphs (Man) 0.0 K/mm3 05/22/18 06:52 Monocytes # (Manual) 0.1 K/mm3 (0.0-0.8) 05/22/18 06:52 Eosinophils # (Manual) 0.0 K/mm3 (0.0-0.4) 05/22/18 06:52 Basophils # (Manual) 0.0 K/mm3 (0.0-0.1) 05/22/18 06:52 Metamyelocytes # 0.0 K/mm3 05/22/18 06:52 Myelocytes # 0.0 K/mm3 05/22/18 06:52 Promyelocytes # 0.0 K/mm3 05/22/18 06:52 Blast Cells # 0.0 K/mm3 05/22/18 06:52 WBC Morphology Not Reportable 05/22/18 06:52 Hypersegmented Neuts Not Reportable 05/22/18 06:52 Hyposegmented Neuts Not Reportable 05/22/18 06:52 Hypogranular Neuts Not Reportable 05/22/18 06:52 Smudge Cells Not Reportable 05/22/18 06:52 Toxic Granulation Not Reportable 05/22/18 06:52 Toxic Vacuolation Not Reportable 05/22/18 06:52 Dohle Bodies Not Reportable 05/22/18 06:52 Pelger-Huet Anomaly Not Reportable 05/22/18 06:52 Alba Rods Not Reportable 05/22/18 06:52 Platelet Estimate Consistent w auto 05/22/18 06:52 Clumped Platelets Not Reportable 05/22/18 06:52 Plt Clumps, EDTA Not Reportable 05/22/18 06:52 Large Platelets Not Reportable 05/22/18 06:52 Giant Platelets Not Reportable 05/22/18 06:52 Platelet Satelliting Not Reportable 05/22/18 06:52 Plt Morphology Comment Not Reportable 05/22/18 06:52 RBC Morphology Not Reportable 05/22/18 06:52 Dimorphic RBCs Not Reportable 05/22/18 06:52 Polychromasia Not Reportable 05/22/18 06:52 Hypochromasia Few 05/22/18 06:52 Poikilocytosis 1+ 05/22/18 06:52 Anisocytosis 1+ 05/22/18 06:52 Microcytosis Not Reportable 05/22/18 06:52 Macrocytosis Not Reportable 05/22/18 06:52 Spherocytes Not Reportable 05/22/18 06:52 Pappenheimer Bodies Not Reportable 05/22/18 06:52 Sickle Cells Not Reportable 05/22/18 06:52 Target Cells Not Reportable 05/22/18 06:52 Tear Drop Cells Not Reportable 05/22/18 06:52 Ovalocytes Few 05/22/18 06:52 Helmet Cells Not Reportable 05/22/18 06:52 Mccoy-Nelagoney Bodies Not Reportable 05/22/18 06:52 Harrison Rings Not Reportable 05/22/18 06:52 Jazmin Cells Not Reportable 05/22/18 06:52 Bite Cells Not Reportable 05/22/18 06:52 Crenated Cell Not Reportable 05/22/18 06:52 Elliptocytes Not Reportable 05/22/18 06:52 Acanthocytes (Spur) Not Reportable 05/22/18 06:52 Rouleaux Not Reportable 05/22/18 06:52 Hemoglobin C Crystals Not Reportable 05/22/18 06:52 Schistocytes Not Reportable 05/22/18 06:52 Malaria parasites Not Reportable 05/22/18 06:52 James Bodies Not Reportable 05/22/18 06:52 Hem Pathologist Commnt No 05/22/18 06:52 PT 20.2 Sec. (12.2-14.9) H 05/19/18 05:00 INR 1.61 (0.87-1.13) H 05/19/18 05:00 APTT 30.3 Sec. (24.2-36.6) 05/07/18 10:37 POC ABG pH 7.372 (7.35-7.45) 05/14/18 10:36 POC ABG pCO2 31.8 (35-45) L 05/14/18 10:36 POC ABG pO2 83 (80-105) 05/14/18 10:36 POC ABG HCO3 18.5 05/14/18 10:36 POC ABG Total CO2 19 05/14/18 10:36 POC ABG O2 Sat 96 05/14/18 10:36 POC ABG Base Excess -7 05/14/18 10:36 FiO2 21 % 05/14/18 10:36 Sodium 147 mmol/L (137-145) H 05/23/18 05:03 Potassium 3.6 mmol/L (3.6-5.0) 05/23/18 05:03 Chloride 117.6 mmol/L (98-107) H 05/23/18 05:03 Carbon Dioxide 21 mmol/L (22-30) L 05/23/18 05:03 Anion Gap 12 mmol/L 05/23/18 05:03 BUN 35 mg/dL (9-20) H 05/23/18 05:03 Creatinine 2.6 mg/dL (0.8-1.5) H 05/23/18 05:03 Estimated GFR 29 ml/min 05/23/18 05:03 BUN/Creatinine Ratio 13 % 05/23/18 05:03 Glucose 149 mg/dL (75-100) H 05/23/18 05:03 POC Glucose 190 (70-105) H 05/24/18 06:54 Hemoglobin A1c 7.6 % (4-6) H 05/08/18 03:15 Osmolality 316 Mosm/kg 05/19/18 01:19 Lactic Acid 1.60 mmol/L (0.7-2.0) 05/07/18 13:21 Uric Acid 9.0 mg/dL (3.5-7.6) H 05/19/18 01:19 Calcium 6.5 mg/dL (8.4-10.2) L 05/23/18 05:03 Phosphorus 3.90 mg/dL (2.5-4.5) 05/23/18 05:03 Magnesium 1.70 mg/dL (1.7-2.3) 05/23/18 05:03 Total Bilirubin 0.20 mg/dL (0.1-1.2) 05/23/18 05:03 AST 10 units/L (5-40) 05/23/18 05:03 ALT < 5 units/L (7-56) L 05/23/18 05:03 Alkaline Phosphatase 50 units/L (35-129) 05/23/18 05:03 Total Protein 4.2 g/dL (6.3-8.2) L 05/23/18 05:03 Albumin 0.9 g/dL (3.9-5) L 05/23/18 05:03 Albumin/Globulin Ratio 0.3 % 05/23/18 05:03 Urine Color Yellow (Yellow) 05/07/18 12:20 Urine Turbidity Clear (Clear) 05/07/18 12:20 Urine pH 5.0 (5.0-7.0) 05/07/18 12:20 Ur Specific [place] 1.012 (1.003-1.030) 05/07/18 12:20 Urine Protein <15 mg/dl mg/dL (Negative) 05/07/18 12:20 Urine Glucose (UA) Neg mg/dL (Negative) 05/07/18 12:20 Urine Ketones Tr mg/dL (Negative) 05/07/18 12:20 Urine Blood Sm (Negative) 05/07/18 12:20 Urine Nitrite Neg (Negative) 05/07/18 12:20 Urine Bilirubin Neg (Negative) 05/07/18 12:20 Urine Urobilinogen < 2.0 mg/dL (<2.0) 05/07/18 12:20 Ur Leukocyte Esterase Neg (Negative) 05/07/18 12:20 Urine WBC (Auto) 3.0 /HPF (0.0-6.0) 05/07/18 12:20 Urine RBC (Auto) 7.0 /HPF (0.0-6.0) 05/07/18 12:20 U Epithel Cells (Auto) < 1.0 /HPF (0-13.0) 05/07/18 12:20 Urine Bacteria (Auto) 1+ /HPF (Negative) 05/07/18 12:20 Urine Mucus Few /HPF 05/07/18 12:20 Immunofix Electrophor see below 05/19/18 01:19 Influenza A (Rapid) Negative (Negative) 05/12/18 Unknown Influenza A (RT-PCR) Negative (Negative) 05/12/18 Unknown Influenza B (Rapid) Negative (Negative) 05/12/18 Unknown Influenza B (RT-PCR) Negative (Negative) 05/12/18 Unknown Blood Type O POSITIVE 05/22/18 10:08 Antibody Screen Negative 05/22/18 10:08 Crossmatch See Detail 05/22/18 10:08 Nutrition/Malnutrition Assess - Dietary Evaluation Nutrition/Malnutrition Findings: Nutrition Notes Start: 05/08/18 09:32 Freq: Status: Active Protocol: Document 05/22/18 15:28 RM (Rec: 05/22/18 15:30 RM [id number]) Nutrition Notes Initial or Follow up Reassessment Current Diagnosis Acute Kidney Injury Coronary Artery Disease Diabetes Sepsis Hypertension Respiratory Failure Stroke Hyperlipidemia Other Pertinent Diagnosis Encephalopathy,Bilat edema, Sacral PU,DVT, GERD, AMS, Pneu Current Diet NPO after midnight Labs/Tests Na 151 Pertinent Medications Reviewed Height 5 ft 6 in Weight 99.1 kg [place] Body Weight (kg) 64.54 BMI 35.2 Subjective/Other Information Consulted for TF recommendation. PEG was not placed yesterday or today. Per nurse dobhoff was placed and stated that it is not clear whether dobhoff caused aspiration pneu previously. Burn Absent Trauma Absent #1 Nutrition Diagnosis Inadequate oral intake Diagnosis Progress(for reassessment Continues documentation) Is patient on ventilator? No Is Patient Ambulatory and/or Out of Bed No REE-([facility]-confined to bed) 99 Calculation Used for Recommendations [facility] Additional Notes Protein needs: AdBW: 75 KG (1.2-1.5 g/kg) (90-113 g/day) Fluid needs: 1ml/ kcal Nutrition Intervention Nutrition Support: Resume Glucerna 1.2 at 65 ml/ hr. Water flush of 150 ml/hr q 4 hr until hypernatremia resolves once PEG placed. Water flush of 100 mls q 4 hrs after hypernatremia resolves. Kcal 1,872 Protein (gm) 94 Fluid (mL) 1,255 Goal #1 Meet at least 75% of calorie and protein needs via TF Anticipated Discharge Needs: Unable to determine at this time Follow-Up By: 05/26/18 Additional Comments Follow for TF tolerance
[2018-05-24 08:36] LABS: Calcium 6.6 mg/dL (8.4-10.2)
[2018-05-24] MEDS: CALCIUM CARBONATE FEEDTUBE SCH ×2 (09:22→22:06)
[2018-05-24] MEDS: CARAFATE PO SCH ×2 (09:23→22:06)
[2018-05-24] MEDS: FERROUS SULFATE PO SCH ×2 (09:23→22:06)
[2018-05-24] MEDS: PREVACID SOLUTAB FEEDTUBE SCH (09:23)
--- NOTE | 2018-05-24 10:59 | Progress Note ---
Assessment and Plan Impression * Acute renal failure * Hypernatremia * CVA * Sepsis * Obstructive uropathy Recommendations * Serum creatinine seems to be trending down. * He currently has indwelling Martinez catheter in place * Continue gentle hydration * Serum sodium still elevated but slowly improving. Continue free water through Dobbhoff tube * Avoid nephrotoxins * Plans for PEG tube placement next week noted * His urine does appear to be somewhat cloudy. Check a UA and urine culture * Discussed with family members at bedside Subjective Date of service: 05/24/18 Principal diagnosis: PEG Interval history: Patient appears comfortable today. Denies any shortness of breath. Dobbhoff tube in place. Objective - Vital Signs Vital signs: Vital Signs - 12hr 05/24/18 05/24/18 00:09 07:43 Temperature 98.7 F Pulse Rate [ 110 H From Monitor] Respiratory 22 28 H Rate Blood Pressure 158/66 O2 Sat by Pulse 90 Oximetry - General Appearance General appearance: well-developed, well-nourished, appears stated age EENT: PERRL, mucous membranes moist Neck: no JVD, no thyromegaly, no carotid bruit, supple Respiratory: Present: Clear to Ascultation Cardiology: regular, normal heart rate, S1S2, no murmurs Gastrointestinal: normal, normoactive bowel sounds Integumentary: other (1+ edema) - Lab 05/23/18 05:03 05/24/18 07:53 Most recent lab results Calcium 6.6 mg/dL (8.4-10.2) L 05/24/18 07:53 Phosphorus 3.90 mg/dL (2.5-4.5) 05/23/18 05:03 Magnesium 1.70 mg/dL (1.7-2.3) 05/23/18 05:03 Medications & Allergies - Medications Allergies/Adverse Reactions: Allergies Penicillins Allergy (Verified 04/11/18 16:00) Unknown Home Medications: Home Medications Medication Instructions Recorded Confirmed Last Taken Type Clopidogrel Bisulfate [Plavix] 75 mg PO DAILY #0 09/21/17 05/07/18 04/24/18 12:00 History Famotidine [Pepcid] 20 mg PO DAILY #0 09/21/17 05/07/18 04/24/18 History 20mg Simvastatin 40 mg PO HS 09/21/17 05/07/18 04/24/18 08:00 History 20 mg Sucralfate [Carafate] 1 gram PO BID #0 09/21/17 05/07/18 04/24/18 12:00 History 1 gm Ferrous Sulfate [Feosol 325 MG tab] 325 mg PO BID #60 tablet 05/04/18 05/07/18 Unknown Rx Active Medications: Generic Name Dose Route Start Last Admin Trade Name Freq PRN Reason Stop Dose Admin Acetaminophen 650 mg 05/08/18 02:22 Tylenol PO Q4H PRN Pain MILD(1-3)/Fever >100.5/MACIAS Albuterol 2.5 mg 05/10/18 15:59 Proventil IH Q4HRT PRN Shortness Of Breath Lipase/Protease/Amylase 1 each 05/21/18 18:[address] 10,500 Unit FEEDTUBE PRN PRN For Clogged Feeding Tube Bisacodyl 10 mg 05/16/18 13:02 05/16/18 13:54 Dulcolax [place] 10 mg QDAY PRN Administration Constipation Calcium Carbonate/Glycine 1,250 mg 05/24/18 10:00 05/24/18 09:22 Calcium Carbonate FEEDTUBE 1,250 mg BID FREDI Administration Dextrose 50 ml 05/19/18 05:05 D50w (25gm) Syringe IV PRN PRN Hypoglycemia Ferrous Sulfate 308 mg 05/23/18 22:00 05/24/18 09:23 Ferrous Sulfate PO 308 mg BID FREDI Administration Hydromorphone HCl 0.5 mg 05/08/18 02:22 Dilaudid IV Q3H PRN Pain , Severe (7-10) Sodium Bicarbonate 100 meq/ 1,100 mls @ 150 mls/hr 05/21/18 09:00 05/22/18 18:09 Dextrose IV 150 mls/hr DIRECT FREDI Administration Sodium Bicarbonate 50 meq/ 1,050 mls @ 60 mls/hr 05/23/18 13:00 Dextrose IV DIRECT FREDI Lansoprazole 30 mg 05/23/18 10:00 05/24/18 09:23 Prevacid Solutab FEEDTUBE 30 mg QDAY FREDI Administration Ondansetron HCl 4 mg 05/08/18 02:22 Zofran IV Q8H PRN Nausea And Vomiting Oxycodone/Acetaminophen 1 tab 05/08/18 02:22 Percocet 5/325 PO Q6H PRN Pain, Moderate (4-6) Pravastatin Sodium 80 mg 05/08/18 22:00 05/23/18 22:13 Pravachol PO 80 mg QHS FREDI Administration Simple Syrup 15 ml 05/21/18 18:45 Simple Syrup FEEDTUBE PRN PRN Hypoglycemia Simple Syrup 30 ml 05/21/18 18:45 Simple Syrup FEEDTUBE PRN PRN Hypoglycemia Sodium Bicarbonate 325 mg 05/21/18 18:45 Sodium Bicarbonate FEEDTUBE PRN PRN For Clogged Feeding Tube Sodium Chloride 10 ml 05/08/18 10:00 05/23/18 22:14 Sodium Chloride Flush Syringe 10 Ml IV 10 ml BID FREDI Administration Sodium Chloride 10 ml 05/08/18 02:22 05/08/18 03:56 Sodium Chloride Flush Syringe 10 Ml IV 10 ml PRN PRN Administration LINE FLUSH Sucralfate 1 gm 05/08/18 10:00 05/24/18 09:23 Carafate PO 1 gm BID FREDI Administration
[2018-05-24 11:26] LABS: Mean Corpuscular HGB Conc 30 % (32-34); Mean Corpuscular Volume 79 fl (84-94); Platelet Count 152 K/mm3 (140-440); Red Blood Count 4.24 M/mm3 (3.65-5.03)
[2018-05-24 11:30] LABS: Hematocrit 33.3 % (35.5-45.6); Red Cell Distribution Width 26.1 % (13.2-15.2)
--- NOTE | 2018-05-24 14:40 | XRay Report ---
PROCEDURE: XR ABDOMEN 1V AP TECHNIQUE: Abdominal radiograph, single view. Performed at 1338 hours HISTORY: New tube placement COMPARISONS: 05/22/2018 FINDINGS: Bowel gas pattern: Air-filled distended bowel across the central abdomen.. Masses or calcifications: None . Bony structures: No significant abnormality . Other: Weighted tip feeding tube is at the GE junction.. IMPRESSION: Weighted tip feeding tube projects in the region of the GE junction. On 05/22/2018, it was in the region of the gastric antrum. Recommend placing the patient in the right lateral decubitus an d advancing about 8 cm and reimaging. This document is electronically signed by eBa Alarcon MD., May 24 2018 02:38:20 PM ET
[2018-05-24 14:56] LABS: Bilirubin,Urine NEG (Negative); Blood,Urine MOD (Negative); Color,Urine Amber (Yellow); Urobilinogen,Urine < 2.0 mg/dL (<2.0)
[2018-05-24 15:01] LABS: RBC,Urine > 182.0 /HPF (0.0-6.0); WBC,Urine > 182.0 /HPF (0.0-6.0)
--- NOTE | 2018-05-24 15:05 | XRay Report ---
PROCEDURE: XR ABDOMEN 1V AP TECHNIQUE: KUB at 1446 hours HISTORY: recheck tube placement COMPARISONS: Earlier the same day at 1338 hours FINDINGS: KUB demonstrates advanced nasogastric tube now in the mid gastric body. Recommend placing the patient in the right lateral decubitus position and advancing the tube 10 cm wh ile rotating the tube clockwise at the patient's nose. Recommend the patient lay in the right lateral decubitus position for approximately 10 minutes before rechecking the tube. IMPRESSION: Slightly advanced weighted feeding tube tip now in the mid gastric body. Please see above for full de tails.. This document is electronically signed by Bea Alarcon MD., May 24 2018 03:03:11 PM ET
--- NOTE | 2018-05-24 17:20 | XRay Report ---
PROCEDURE: XR ABDOMEN 1V AP TECHNIQUE: Supine views of the abdomen HISTORY: checking placement COMPARISONS: KUB abdomen 05/24/2018 at 2:46 PM . FINDINGS: Feeding tube has been placed terminating in the proximal stomach, not significantly changed from prev ious. The bowel gas pattern is nonspecific. No free air is identified. Soft tissues have no evidence for ma ss shadows or calcifications. The bony structures are stable. IMPRESSION: Feeding tube terminating in the proximal stomach, unchanged. Nonspecific, nonobstructive bowel gas pa ttern with no acute process noted. This document is electronically signed by Juliet Krause MD., May 24 2018 05:18:23 PM ET
[2018-05-24] MEDS: SODIUM CHLORIDE FLUSH SYRINGE 10 ML IV SCH ×2 (19:05→22:07)
[2018-05-24] MEDS: PRAVACHOL PO SCH (22:06)
[2018-05-25 05:48] LABS: Calcium 6.9 mg/dL (8.4-10.2)
--- NOTE | 2018-05-25 08:30 | Progress Note ---
Assessment and Plan Assessment and plan: --Oropharngeal dysphagia; GI and IR evaluated the patient No window for PEG placement, Surgery evaluated the patient, Patient is on Dobbhoff feeds ,NPO from midnight possible laparoscopic PEG placement tomorrow. 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 --DEVIN, likely vasomotor nephropathy, mild improvement Nephrology following, gentle hydration, avoid nephrotoxins --Chronic left hydronephrosis, atrophic left kidney Extensively evaluated by urology during previous admission --Hyperglycemia/type 2 diabetes mellitus Accu-Chek sliding scale coverage and ADA diet, insulin as needed --Acute metabolic encephalopathy; back to baseline mentally alert and awake likely multifactorial.Head CT scan on 05/12/18 neg --Hypokalemia; resolved --Hypernatremia; resolved IVF changed to D/W, will monitor --Severe protein calorie malnutrition -tube feeding via dobhoff discontinued due to aspiration -cont dextrose IVF ,Hydraulic Modeling Engineer following --H/O CVA with right-sided hemiparesis cont supportive care --Chronic urinary retention; patient follows with urology cont durán catheter --Physical deconditioning cont fall precautions PT/OT , recommend acute/subacute rehabilitation Patient's family refused --Discharge planning; B management --DVT prophylaxis with SCD No Pharmacologic anticoagulation due to chronic anemia with high risk for bleed History Interval history: Since seen and examined medical records reviewed No new events reported by the nursing staff Patient is comfortable tolerating tube feeding Surgery evaluation noted and appreciated Possible laparoscopic PEG placement tomorrow Patient is comfortable chronically ill-looking cachectic Vital signs reviewed Hospitalist Physical - Constitutional Vitals: Temp Pulse Resp BP Pulse Ox 98.5 F 121 H 24 118/70 98 05/25/18 02:25 05/24/18 12:32 05/25/18 02:25 05/25/18 02:25 05/24/18 12:32 General appearance: Present: no acute distress, well-nourished, obese - EENT Eyes: Present: PERRL, EOM intact - Neck Neck: Present: supple, normal ROM - Respiratory Respiratory effort: normal Respiratory: bilateral: diminished, negative: rales, rhonchi, wheezing - Cardiovascular Rhythm: regular Heart Sounds: Present: S1 & S2 - Extremities Extremities: no ischemia, pulses intact Extremity abnormal: edema - Abdominal General gastrointestinal: soft, non-tender, non-distended, normal bowel sounds - Integumentary Integumentary: Present: clear, warm - Psychiatric Psychiatric: appropriate mood/affect, cooperative, other (confused at times) - Neurologic Neurologic: other (residual weakness on the right side) Results - Labs CBC & Chem 7: 05/24/18 10:59 05/25/18 04:55 Labs: Laboratory Last Values WBC 10.0 K/mm3 (4.5-11.0) 05/24/18 10:59 RBC 4.24 M/mm3 (3.65-5.03) 05/24/18 10:59 Hgb 10.0 gm/dl (11.8-15.2) L 05/24/18 10:59 Hct 33.3 % (35.5-45.6) L 05/24/18 10:59 MCV 79 fl (84-94) L 05/24/18 10:59 MCH 24 pg (28-32) L 05/24/18 10:59 MCHC 30 % (32-34) L 05/24/18 10:59 RDW 26.1 % (13.2-15.2) H 05/24/18 10:59 Plt Count 152 K/mm3 (140-440) 05/24/18 10:59 Lymph % (Auto) [place]ow [place] 05/24/18 10:59 [place] % (Auto) Scow Captain 05/24/18 10:59 Eos % (Auto) Scow Captain 05/24/18 10:59 Baso % (Auto) Scow Captain 05/24/18 10:59 Lymph # Scow Captain 05/24/18 10:59 [place] # Scow Captain 05/24/18 10:59 Eos # Scow Captain 05/24/18 10:59 Baso # Scow Captain 05/24/18 10:59 Add Manual Diff Complete 05/22/18 06:52 Total Counted 100 05/22/18 06:52 Seg Neutrophils % Scow Captain 05/24/18 10:59 Seg Neuts % (Manual) 97.0 % (40.0-70.0) H 05/22/18 06:52 Band Neutrophils % 0 % 05/22/18 06:52 Lymphocytes % (Manual) 2.0 % (13.4-35.0) L 05/22/18 06:52 Reactive Lymphs % (Man) 0 % 05/22/18 06:52 Monocytes % (Manual) 1.0 % (0.0-7.3) 05/22/18 06:52 Eosinophils % (Manual) 0 % (0.0-4.3) 05/22/18 06:52 Basophils % (Manual) 0 % (0.0-1.8) 05/22/18 06:52 Metamyelocytes % 0 % 05/22/18 06:52 Myelocytes % 0 % 05/22/18 06:52 Promyelocytes % 0 % 05/22/18 06:52 Blast Cells % 0 % 05/22/18 06:52 Nucleated RBC % Not Reportable 05/22/18 06:52 Seg Neutrophils # Scow Captain 05/24/18 10:59 Seg Neutrophils # Man 8.6 K/mm3 (1.8-7.7) H 05/22/18 06:52 Band Neutrophils # 0.0 K/mm3 05/22/18 06:52 Lymphocytes # (Manual) 0.2 K/mm3 (1.2-5.4) L 05/22/18 06:52 Abs React Lymphs (Man) 0.0 K/mm3 05/22/18 06:52 Monocytes # (Manual) 0.1 K/mm3 (0.0-0.8) 05/22/18 06:52 Eosinophils # (Manual) 0.0 K/mm3 (0.0-0.4) 05/22/18 06:52 Basophils # (Manual) 0.0 K/mm3 (0.0-0.1) 05/22/18 06:52 Metamyelocytes # 0.0 K/mm3 05/22/18 06:52 Myelocytes # 0.0 K/mm3 05/22/18 06:52 Promyelocytes # 0.0 K/mm3 05/22/18 06:52 Blast Cells # 0.0 K/mm3 05/22/18 06:52 WBC Morphology Not Reportable 05/22/18 06:52 Hypersegmented Neuts Not Reportable 05/22/18 06:52 Hyposegmented Neuts Not Reportable 05/22/18 06:52 Hypogranular Neuts Not Reportable 05/22/18 06:52 Smudge Cells Not Reportable 05/22/18 06:52 Toxic Granulation Not Reportable 05/22/18 06:52 Toxic Vacuolation Not Reportable 05/22/18 06:52 Dohle Bodies Not Reportable 05/22/18 06:52 Pelger-Huet Anomaly Not Reportable 05/22/18 06:52 Alba Rods Not Reportable 05/22/18 06:52 Platelet Estimate Consistent w auto 05/22/18 06:52 Clumped Platelets Not Reportable 05/22/18 06:52 Plt Clumps, EDTA Not Reportable 05/22/18 06:52 Large Platelets Not Reportable 05/22/18 06:52 Giant Platelets Not Reportable 05/22/18 06:52 Platelet Satelliting Not Reportable 05/22/18 06:52 Plt Morphology Comment Not Reportable 05/22/18 06:52 RBC Morphology Not Reportable 05/22/18 06:52 Dimorphic RBCs Not Reportable 05/22/18 06:52 Polychromasia Not Reportable 05/22/18 06:52 Hypochromasia Few 05/22/18 06:52 Poikilocytosis 1+ 05/22/18 06:52 Anisocytosis 1+ 05/22/18 06:52 Microcytosis Not Reportable 05/22/18 06:52 Macrocytosis Not Reportable 05/22/18 06:52 Spherocytes Not Reportable 05/22/18 06:52 Pappenheimer Bodies Not Reportable 05/22/18 06:52 Sickle Cells Not Reportable 05/22/18 06:52 Target Cells Not Reportable 05/22/18 06:52 Tear Drop Cells Not Reportable 05/22/18 06:52 Ovalocytes Few 05/22/18 06:52 Helmet Cells Not Reportable 05/22/18 06:52 Mccoy-Plantation Bodies Not Reportable 05/22/18 06:52 [place] Rings Not Reportable 05/22/18 06:52 [place] Cells Not Reportable 05/22/18 06:52 Bite Cells Not Reportable 05/22/18 06:52 Crenated Cell Not Reportable 05/22/18 06:52 Elliptocytes Not Reportable 05/22/18 06:52 Acanthocytes (Spur) Not Reportable 05/22/18 06:52 Rouleaux Not Reportable 05/22/18 06:52 Hemoglobin C Crystals Not Reportable 05/22/18 06:52 Schistocytes Not Reportable 05/22/18 06:52 Malaria parasites Not Reportable 05/22/18 06:52 James Bodies Not Reportable 05/22/18 06:52 Hem Pathologist Commnt No 05/22/18 06:52 PT 20.2 Sec. (12.2-14.9) H 05/19/18 05:00 INR 1.61 (0.87-1.13) H 05/19/18 05:00 APTT 30.3 Sec. (24.2-36.6) 05/07/18 10:37 POC ABG pH 7.372 (7.35-7.45) 05/14/18 10:36 POC ABG pCO2 31.8 (35-45) L 05/14/18 10:36 POC ABG pO2 83 (80-105) 05/14/18 10:36 POC ABG HCO3 18.5 05/14/18 10:36 POC ABG Total CO2 19 05/14/18 10:36 POC ABG O2 Sat 96 05/14/18 10:36 POC ABG Base Excess -7 05/14/18 10:36 FiO2 21 % 05/14/18 10:36 Sodium 143 mmol/L (137-145) 05/25/18 04:55 Potassium 4.7 mmol/L (3.6-5.0) 05/25/18 04:55 Chloride 115.5 mmol/L (98-107) H 05/25/18 04:55 Carbon Dioxide 19 mmol/L (22-30) L 05/25/18 04:55 Anion Gap 13 mmol/L 05/25/18 04:55 BUN 40 mg/dL (9-20) H 05/25/18 04:55 Creatinine 2.3 mg/dL (0.8-1.5) H 05/25/18 04:55 Estimated GFR 33 ml/min 05/25/18 04:55 BUN/Creatinine Ratio 17 % 05/25/18 04:55 Glucose 151 mg/dL (75-100) H 05/25/18 04:55 POC Glucose 160 (70-105) H 05/25/18 05:54 Hemoglobin A1c 7.6 % (4-6) H 05/08/18 03:15 Osmolality 316 Mosm/kg 05/19/18 01:19 Lactic Acid 1.60 mmol/L (0.7-2.0) 05/07/18 13:21 Uric Acid 9.0 mg/dL (3.5-7.6) H 05/19/18 01:19 Calcium 6.9 mg/dL (8.4-10.2) L 05/25/18 04:55 Phosphorus 3.90 mg/dL (2.5-4.5) 05/23/18 05:03 Magnesium 1.70 mg/dL (1.7-2.3) 05/23/18 05:03 Total Bilirubin 0.20 mg/dL (0.1-1.2) 05/23/18 05:03 AST 10 units/L (5-40) 05/23/18 05:03 ALT < 5 units/L (7-56) L 05/23/18 05:03 Alkaline Phosphatase 50 units/L (35-129) 05/23/18 05:03 Total Protein 4.2 g/dL (6.3-8.2) L 05/23/18 05:03 Albumin 0.9 g/dL (3.9-5) L 05/23/18 05:03 Albumin/Globulin Ratio 0.3 % 05/23/18 05:03 Urine Color [place]ora (Yellow) 05/24/18 Unknown Urine Turbidity Turbid (Clear) 05/24/18 Unknown Urine pH 5.0 (5.0-7.0) 05/24/18 Unknown Ur Specific [place] 1.019 (1.003-1.030) 05/24/18 Unknown Urine Protein 100 mg/dl mg/dL (Negative) 05/24/18 Unknown Urine Glucose (UA) Neg mg/dL (Negative) 05/24/18 Unknown Urine Ketones Neg mg/dL (Negative) 05/24/18 Unknown Urine Blood Mod (Negative) 05/24/18 Unknown Urine Nitrite Neg (Negative) 05/24/18 Unknown Urine Bilirubin Neg (Negative) 05/24/18 Unknown Urine Urobilinogen < 2.0 mg/dL (<2.0) 05/24/18 Unknown Ur Leukocyte Esterase Lg (Negative) 05/24/18 Unknown Urine WBC (Auto) > 182.0 /HPF (0.0-6.0) H 05/24/18 Unknown Urine RBC (Auto) > 182.0 /HPF (0.0-6.0) 05/24/18 Unknown U Epithel Cells (Auto) < 1.0 /HPF (0-13.0) 05/07/18 12:20 Urine Bacteria (Auto) 1+ /HPF (Negative) 05/07/18 12:20 Urine Mucus Few /HPF 05/07/18 12:20 Urine Yeast (Budding) 3+ /HPF 05/24/18 Unknown Immunofix Electrophor see below 05/19/18 01:19 Influenza A (Rapid) Negative (Negative) 05/12/18 Unknown Influenza A (RT-PCR) Negative (Negative) 05/12/18 Unknown Influenza B (Rapid) Negative (Negative) 05/12/18 Unknown Influenza B (RT-PCR) Negative (Negative) 05/12/18 Unknown Blood Type O POSITIVE 05/22/18 10:08 Antibody Screen Negative 05/22/18 10:08 Crossmatch See Detail 05/22/18 10:08 Nutrition/Malnutrition Assess - Dietary Evaluation Nutrition/Malnutrition Findings: Nutrition Notes Start: 05/08/18 09:32 Freq: Status: Active Protocol: Document 05/22/18 15:28 RM (Rec: 05/22/18 15:30 RM [id number]) Nutrition Notes Initial or Follow up Reassessment Current Diagnosis Acute Kidney Injury Coronary Artery Disease Diabetes Sepsis Hypertension Respiratory Failure Stroke Hyperlipidemia Other Pertinent Diagnosis Encephalopathy,Bilat edema, Sacral PU,DVT, GERD, AMS, Pneu Current Diet NPO after midnight Labs/Tests Na 151 Pertinent Medications Reviewed Height 5 ft 6 in Weight 99.1 kg [place] Body Weight (kg) 64.54 BMI 35.2 Subjective/Other Information Consulted for TF recommendation. PEG was not placed yesterday or today. Per nurse dobhoff was placed and stated that it is not clear whether dobhoff caused aspiration pneu previously. Burn Absent Trauma Absent #1 Nutrition Diagnosis Inadequate oral intake Diagnosis Progress(for reassessment Continues documentation) Is patient on ventilator? No Is Patient Ambulatory and/or Out of Bed No [facility] Calculation Used for Recommendations [place] [facility] Additional Notes Protein needs: AdBW: 75 KG (1.2-1.5 g/kg) (90-113 g/day) Fluid needs: 1ml/ kcal Nutrition Intervention Nutrition Support: Resume Glucerna 1.2 at 65 ml/ hr. Water flush of 150 ml/hr q 4 hr until hypernatremia resolves once PEG placed. Water flush of 100 mls q 4 hrs after hypernatremia resolves. Kcal 1,872 Protein (gm) 94 Fluid (mL) 1,255 Goal #1 Meet at least 75% of calorie and protein needs via TF Anticipated Discharge Needs: Unable to determine at this time Follow-Up By: 05/26/18 Additional Comments Follow for TF tolerance
--- NOTE | 2018-05-25 08:54 | Progress Note ---
Assessment and Plan Impression * Acute renal failure * Hypernatremia * CVA * Sepsis * Obstructive uropathy Recommendations * Serum creatinine seems to be trending down. * He currently has indwelling Martinez catheter in place * Continue gentle hydration * Serum sodium is slowly improving. Continue free water through Dobbhoff tube * Avoid nephrotoxins * Plans for PEG tube placement noted * His urine does appear less cloudy today. He does have some pyuria. Antibiotic therapy as per ID services * Discussed with family members at bedside Subjective Date of service: 05/25/18 Principal diagnosis: PEG Interval history: Patient appears comfortable today. Denies any shortness of breath. Dobbhoff tube in place. Objective - Vital Signs Vital signs: Vital Signs - 12hr 05/25/18 05/25/18 02:25 08:20 Temperature 98.5 F 98.7 F Pulse Rate 123 H Respiratory 24 20 Rate Blood Pressure 118/70 112/63 O2 Sat by Pulse 98 Oximetry - General Appearance General appearance: well-developed, well-nourished, appears stated age EENT: PERRL, mucous membranes moist Neck: no JVD, no thyromegaly, no carotid bruit, supple Respiratory: Present: Clear to Ascultation Cardiology: regular, normal heart rate, S1S2, no murmurs Gastrointestinal: normal, normoactive bowel sounds Integumentary: other (1+ edema) - Lab 05/24/18 10:59 05/25/18 04:55 Most recent lab results Calcium 6.9 mg/dL (8.4-10.2) L 05/25/18 04:55 Phosphorus 3.90 mg/dL (2.5-4.5) 05/23/18 05:03 Magnesium 1.70 mg/dL (1.7-2.3) 05/23/18 05:03 Medications & Allergies - Medications Allergies/Adverse Reactions: Allergies Penicillins Allergy (Verified 04/11/18 16:00) Unknown Home Medications: Home Medications Medication Instructions Recorded Confirmed Last Taken Type Clopidogrel Bisulfate [Plavix] 75 mg PO DAILY #0 09/21/17 05/07/18 04/24/18 12:00 History Famotidine [Pepcid] 20 mg PO DAILY #0 09/21/17 05/07/18 04/24/18 History 20mg Simvastatin 40 mg PO HS 07/04/1005/07/18 04/24/18 08:00 History 20 mg Sucralfate [Carafate] 1 gram PO BID #0 09/21/17 05/07/18 04/24/18 12:00 History 1 gm Ferrous Sulfate [Feosol 325 MG tab] 325 mg PO BID #60 tablet 05/04/18 05/07/18 Unknown Rx Active Medications: Generic Name Dose Route Start Last Admin Trade Name Freq PRN Reason Stop Dose Admin Acetaminophen 650 mg 05/08/18 02:22 Tylenol PO Q4H PRN Pain MILD(1-3)/Fever >100.5/MACIAS Albuterol 2.5 mg 05/10/18 15:59 Proventil IH Q4HRT PRN Shortness Of Breath Lipase/Protease/Amylase 1 each 05/21/18 18:[address] 10,500 Unit FEEDTUBE PRN PRN For Clogged Feeding Tube Bisacodyl 10 mg 05/16/18 13:02 05/16/18 13:54 Dulcolax [place] 10 mg QDAY PRN Administration Constipation Calcium Carbonate/Glycine 1,250 mg 05/24/18 10:00 05/24/18 22:06 Calcium Carbonate FEEDTUBE 1,250 mg BID FREDI Administration Dextrose 50 ml 05/19/18 05:05 D50w (25gm) Syringe IV PRN PRN Hypoglycemia Ferrous Sulfate 308 mg 05/23/18 22:00 05/24/18 22:06 Ferrous Sulfate PO 308 mg BID FREDI Administration Hydromorphone HCl 0.5 mg 05/08/18 02:22 Dilaudid IV Q3H PRN Pain , Severe (7-10) Sodium Bicarbonate 100 meq/ 1,100 mls @ 150 mls/hr 05/21/18 09:00 05/22/18 18:09 Dextrose IV 150 mls/hr DIRECT FREDI Administration Sodium Bicarbonate 50 meq/ 1,050 mls @ 60 mls/hr 05/23/18 13:00 Dextrose IV DIRECT FREDI Lansoprazole 30 mg 05/23/18 10:00 05/24/18 09:23 Prevacid Solutab FEEDTUBE 30 mg QDAY FREDI Administration Ondansetron HCl 4 mg 05/08/18 02:22 Zofran IV Q8H PRN Nausea And Vomiting Oxycodone/Acetaminophen 1 tab 05/08/18 02:22 Percocet 5/325 PO Q6H PRN Pain, Moderate (4-6) Pravastatin Sodium 80 mg 05/08/18 22:00 05/24/18 22:06 Pravachol PO 80 mg QHS FREDI Administration Simple Syrup 15 ml 05/21/18 18:45 Simple Syrup FEEDTUBE PRN PRN Hypoglycemia Simple Syrup 30 ml 05/21/18 18:45 Simple Syrup FEEDTUBE PRN PRN Hypoglycemia Sodium Bicarbonate 325 mg 05/21/18 18:45 Sodium Bicarbonate FEEDTUBE PRN PRN For Clogged Feeding Tube Sodium Chloride 10 ml 05/08/18 10:00 05/24/18 22:07 Sodium Chloride Flush Syringe 10 Ml IV 10 ml BID FREDI Administration Sodium Chloride 10 ml 05/08/18 02:22 05/08/18 03:56 Sodium Chloride Flush Syringe 10 Ml IV 10 ml PRN PRN Administration LINE FLUSH Sucralfate 1 gm 05/08/18 10:00 05/24/18 22:06 Carafate PO 1 gm BID FREDI Administration
--- NOTE | 2018-05-25 09:41 | Progress Note ---
Assessment and Plan - Patient Problems (1) Dysphagia Current Visit: Yes Status: Acute Qualifiers: Dysphagia type: oropharyngeal phase Qualified Code(s): R13.12 - Dysphagia, oropharyngeal phase Plan to address problem: Patient appears stable. Scheduled for lap assisted PEG tomorrow at 1:30pm. Patient and family did not have any questions. Pre-op orders entered. NPO after midnight. Labs in AM. Please call with questions. Time=10min Subjective Date of service: 05/25/18 Patient Reports: Positive: no new complaints, feels better Objective Vital Signs - 12hr 05/25/18 05/25/18 05/25/18 02:25 08:00 08:20 Temperature 98.5 F 98.7 F Pulse Rate 123 H Pulse Rate [ 120 H From Monitor] Respiratory 24 20 Rate Blood Pressure 118/70 112/63 O2 Sat by Pulse 92 98 Oximetry - General physical appearance no distress, no pain, other (awake and interactive today) - Respiratory normal expansion, normal respiratory effort - Abdomen soft, not tender, not distended, not wound - Integumentary no rash, no growths, no abnormal pigmentation - Labs 05/24/18 10:59 05/25/18 04:55 Diabetes panel 05/25/18 Range/Units 04:55 Sodium 143 (137-145) mmol/L Potassium 4.7 (3.6-5.0) mmol/L Chloride 115.5 H (98-107) mmol/L Carbon Dioxide 19 L (22-30) mmol/L BUN 40 H (9-20) mg/dL Creatinine 2.3 H (0.8-1.5) mg/dL Glucose 151 H (75-100) mg/dL Calcium 6.9 L (8.4-10.2) mg/dL Calcium panel 05/25/18 Range/Units 04:55 Calcium 6.9 L (8.4-10.2) mg/dL Pituitary panel 05/25/18 Range/Units 04:55 Sodium 143 (137-145) mmol/L Potassium 4.7 (3.6-5.0) mmol/L Chloride 115.5 H (98-107) mmol/L Carbon Dioxide 19 L (22-30) mmol/L BUN 40 H (9-20) mg/dL Creatinine 2.3 H (0.8-1.5) mg/dL Glucose 151 H (75-100) mg/dL Calcium 6.9 L (8.4-10.2) mg/dL Adrenal panel 05/25/18 Range/Units 04:55 Sodium 143 (137-145) mmol/L Potassium 4.7 (3.6-5.0) mmol/L Chloride 115.5 H (98-107) mmol/L Carbon Dioxide 19 L (22-30) mmol/L BUN 40 H (9-20) mg/dL Creatinine 2.3 H (0.8-1.5) mg/dL Glucose 151 H (75-100) mg/dL Calcium 6.9 L (8.4-10.2) mg/dL
[2018-05-25] MEDS: FERROUS SULFATE PO SCH ×2 (10:05→22:17)
[2018-05-25] MEDS: PREVACID SOLUTAB FEEDTUBE SCH (10:06)
[2018-05-25] MEDS: CARAFATE PO SCH ×2 (10:07→22:17)
[2018-05-25] MEDS: CALCIUM CARBONATE FEEDTUBE SCH ×2 (10:13→22:17)
[2018-05-25] MEDS: SODIUM CHLORIDE FLUSH SYRINGE 10 ML IV SCH ×2 (10:16→22:17)
[2018-05-25] MEDS ORDERED: VANCOMYCIN 1,500 MG in NACL 0.9% 500 ML 500 ML IV NR (12:30)
[2018-05-25] MEDS ORDERED: VANCOMYCIN 1,500 MG in NACL 0.9% 500 ML 500 ML IV ONE (12:30)
[2018-05-25] MEDS: HumaLOG SUB-Q SCH ×2 (12:49→19:39)
--- NOTE | 2018-05-25 15:45 | Anesthesia Consultation ---
Anesthesia Consult and Med Hx Date of service: 05/26/18 - Airway Anesthetic Teeth Evaluation: Edentulous ROM Head & Neck: Adequate Mental/Hyoid Distance: Adequate Mallampati Class: Class III Intubation Access Assessment: Probably Good - Pulmonary Exam CTA: Yes - Cardiac Exam Cardiac Exam: RRR - Pre-Operative Health Status ASA Pre-Surgery Classification: ASA4 Proposed Anesthetic Plan: General - Pulmonary Hx Smoking: Yes (quit 30yrs ago) Hx Asthma: Yes COPD: No Hx Pneumonia: No - Cardiovascular System Hx Hypertension: Yes - Central Nervous System CVA: Yes (right sided weakness) - Endocrine Hx End Stage Renal Disease: No - Other Systems Hx Alcohol Use: No Hx Obesity: Yes - Additional Comments Anesthesia Medical History Comments: No GAC, No FHAC
[2018-05-25] MEDS: PRAVACHOL PO SCH (22:17)
[2018-05-26] MEDS: HumaLOG SUB-Q SCH ×4 (00:16→18:00)
[2018-05-26 06:06] LABS: INR 1.24 (0.87-1.13)
[2018-05-26 06:16] LABS: Calcium 7.2 mg/dL (8.4-10.2)
[2018-05-26] MEDS ORDERED: TORADOL IV NR (07:25)
--- NOTE | 2018-05-26 08:35 | Progress Note ---
Assessment and Plan Impression * Acute renal failure * Hypernatremia * CVA * Sepsis * Obstructive uropathy Recommendations * Serum creatinine seems to be leveling off. * He currently has indwelling Martinez catheter in place * Serum sodium noted to be higher today. He is currently NPO for surgery. Add IV D5W until feeding resumed * Avoid nephrotoxins * Plans for PEG tube placement noted * His urine does appear less cloudy today. He does have some pyuria. Antibiot ic therapy as per ID services * Discussed with family members at bedside Subjective Date of service: 05/26/18 Principal diagnosis: PEG Interval history: Patient is arousable. Scheduled for PEG tube placement today. Appears comfortable. Objective - Vital Signs Vital signs: Vital Signs - 12hr 05/26/18 05/26/18 05/26/18 00:00 02:00 08:07 Temperature 98.4 F Pulse Rate 96 H Pulse Rate [ 120 H From Monitor] Pulse Rate [ 125 H Right Radial] Respiratory 20 20 Rate Blood Pressure 100/58 [Left] O2 Sat by Pulse 97 100 96 Oximetry - General Appearance General appearance: well-developed, well-nourished, appears stated age EENT: PERRL, mucous membranes moist Neck: no JVD, no thyromegaly, no carotid bruit, supple Respiratory: Present: Clear to Ascultation Cardiology: regular, normal heart rate, S1S2, no murmurs Gastrointestinal: normal, normoactive bowel sounds Integumentary: other (1+ edema) - Lab 05/24/18 10:59 05/26/18 05:15 Most recent lab results Calcium 7.2 mg/dL (8.4-10.2) L 05/26/18 05:15 Phosphorus 3.90 mg/dL (2.5-4.5) 05/23/18 05:03 Magnesium 1.70 mg/dL (1.7-2.3) 05/23/18 05:03 Medications & Allergies - Medications Allergies/Adverse Reactions: Allergies Penicillins Allergy (Verified 04/11/18 16:00) Unknown Home Medications: Home Medications Medication Instructions Recorded Confirmed Last Taken Type Clopidogrel Bisulfate [Plavix] 75 mg PO DAILY #0 09/21/17 05/07/18 04/24/18 12:00 History Famotidine [Pepcid] 20 mg PO DAILY #0 09/21/17 05/07/18 04/24/18 History 20mg Simvastatin 40 mg PO HS 09/21/17 05/07/18 04/24/18 08:00 History 20 mg Sucralfate [Carafate] 1 gram PO BID #0 09/21/17 05/07/18 04/24/18 12:00 History 1 gm Ferrous Sulfate [Feosol 325 MG tab] 325 mg PO BID #60 tablet 05/04/18 05/07/18 Unknown Rx Active Medications: Generic Name Dose Route Start Last Admin Trade Name Freq PRN Reason Stop Dose Admin Acetaminophen 650 mg 05/08/18 02:22 Tylenol PO Q4H PRN Pain MILD(1-3)/Fever >100.5/MACIAS Albuterol 2.5 mg 05/10/18 15:59 Proventil IH Q4HRT PRN Shortness Of Breath Lipase/Protease/Amylase 1 each 05/21/18 18:[address] 10,500 Unit FEEDTUBE PRN PRN For Clogged Feeding Tube Bisacodyl 10 mg 05/16/18 13:02 05/16/18 13:54 Dulcolax [place] 10 mg QDAY PRN Administration Constipation Calcium Carbonate/Glycine 1,250 mg 05/24/18 10:00 05/25/18 22:17 Calcium Carbonate FEEDTUBE 1,250 mg BID FREDI Administration Dextrose 50 ml 05/19/18 05:05 D50w (25gm) Syringe IV PRN PRN Hypoglycemia Ferrous Sulfate 308 mg 05/23/18 22:00 05/25/18 22:17 Ferrous Sulfate PO 308 mg BID FREDI Administration Hydromorphone HCl 0.5 mg 05/08/18 02:22 Dilaudid IV Q3H PRN Pain , Severe (7-10) Sodium Bicarbonate 100 meq/ 1,100 mls @ 150 mls/hr 05/21/18 09:00 05/22/18 18:09 Dextrose IV 150 mls/hr DIRECT FREDI Administration Sodium Bicarbonate 50 meq/ 1,050 mls @ 60 mls/hr 05/23/18 13:00 Dextrose IV DIRECT FREDI Vancomycin HCl 1,500 mg/ 530 mls @ 333.333 mls/hr 05/26/18 10:00 Sodium Chloride IV 05/26/18 23:59 PREOP NR Insulin Human Lispro 0 unit 05/25/18 13:00 05/26/18 00:16 Humalog SUB-Q 2 unit Q6HR FREDI Administration Protocol Lansoprazole 30 mg 05/23/18 10:00 05/25/18 10:06 Prevacid Solutab FEEDTUBE 30 mg QDAY FREDI Administration Ondansetron HCl 4 mg 05/08/18 02:22 Zofran IV Q8H PRN Nausea And Vomiting Oxycodone/Acetaminophen 1 tab 05/08/18 02:22 Percocet 5/325 PO Q6H PRN Pain, Moderate (4-6) Pravastatin Sodium 80 mg 05/08/18 22:00 05/25/18 22:17 Pravachol PO 80 mg QHS FREDI Administration Simple Syrup 15 ml 05/21/18 18:45 Simple Syrup FEEDTUBE PRN PRN Hypoglycemia Simple Syrup 30 ml 05/21/18 18:45 Simple Syrup FEEDTUBE PRN PRN Hypoglycemia Sodium Bicarbonate 325 mg 05/21/18 18:45 Sodium Bicarbonate FEEDTUBE PRN PRN For Clogged Feeding Tube Sodium Chloride 10 ml 05/08/18 10:00 05/25/18 22:17 Sodium Chloride Flush Syringe 10 Ml IV 10 ml BID FREDI Administration Sodium Chloride 10 ml 05/08/18 02:22 05/08/18 03:56 Sodium Chloride Flush Syringe 10 Ml IV 10 ml PRN PRN Administration LINE FLUSH Sucralfate 1 gm 05/08/18 10:00 05/25/18 22:17 Carafate PO 1 gm BID FREDI Administration
[2018-05-26] MEDS ORDERED: VANCOMYCIN/NS 500 MG/100 ML 500 MG/100 ML BAG IV NR (10:00)
[2018-05-26] MEDS ORDERED: VANCOMYCIN 1,500 MG in NACL 0.9% 500 ML 500 ML IV NR (10:00)
[2018-05-26] MEDS: CALCIUM CARBONATE FEEDTUBE SCH ×2 (10:27→21:51)
[2018-05-26] MEDS: PREVACID SOLUTAB FEEDTUBE SCH (10:28)
[2018-05-26] MEDS: FERROUS SULFATE PO SCH ×2 (10:28→21:51)
[2018-05-26] MEDS: CARAFATE PO SCH ×2 (10:28→21:51)
[2018-05-26] MEDS ORDERED: SUBLIMAZE ONE (11:08)
[2018-05-26] MEDS ORDERED: DIPRIVAN 10 MG/ML IV ONE (11:08)
[2018-05-26] MEDS ORDERED: ZEMURON IV ONE (11:11)
[2018-05-26] MEDS ORDERED: ZOFRAN IV PRN (11:21)
[2018-05-26] MEDS ORDERED: SUBLIMAZE IV PRN (11:21)
[2018-05-26] MEDS ORDERED: XYLOCAINE 1% 20 mL ONE (11:30)
[2018-05-26] MEDS ORDERED: MARCAINE-EPI 0.5%-1:200,000 INFILTRATI ONE ×2 (11:31→12:18)
[2018-05-26] MEDS ORDERED: WATER FOR IRRIG STERILE IR ONE (12:00)
[2018-05-26] MEDS ORDERED: LACTATED RINGERS 1,000 ML IV SCH (12:00)
[2018-05-26] MEDS ORDERED: NEO SYNEPHRINE/NS Syringe(OR USE) IV ONE (12:12)
[2018-05-26] MEDS ORDERED: NACL 0.9% IR ONE (12:18)
[2018-05-26] MEDS ORDERED: XYLOCAINE 1% 20 mL INFILTRATI ONE (12:18)
--- NOTE | 2018-05-26 13:02 | Post Operative Note ---
Date of procedure: 05/26/18 (dictation:[id number]) Pre-op diagnosis: dysphagia Post-op diagnosis: same Findings: moderate amount of ascites Procedure: Lap assisted PEG placement Anesthesia: SHELBY Surgeon: BERTHA HARO [employer] Sales: JOHN MATTA (co-surgeon) Estimated blood loss: minimal Pathology: none Condition: stable Disposition: PACU
[2018-05-26] MEDS ORDERED: PANCREAZE DR 10,500 UNIT FEEDTUBE PRN (16:21)
[2018-05-26] MEDS ORDERED: SIMPLE SYRUP FEEDTUBE PRN ×2 (16:21)
[2018-05-26] MEDS ORDERED: SODIUM BICARBONATE FEEDTUBE PRN (16:21)
--- NOTE | 2018-05-26 16:33 | Operative Report ---
PREOPERATIVE DIAGNOSIS: Dysphagia. POSTOPERATIVE DIAGNOSIS: Dysphagia. PROCEDURE: Laparoscopic-assisted PEG tube placement. CO-SURGEONS: Brianne Ramirez MD and Sana Boyd DO ANESTHESIA: General. ESTIMATED BLOOD LOSS: Less than 10 mL. FLUIDS: 600 mL. FINDINGS: Normal intra-abdominal anatomy. On EGD, the patient was noted to have a tight lower esophageal sphincter. No other abnormalities were noticed. IMPLANTS: 20-[place] PEG tube. COMPLICATIONS: None. DISPOSITION: Stable transport to Recovery. INDICATIONS: This is an 78-year-old male who has suffered from dysphagia secondary to a stroke. Attempts have been made by GI and IR for feeding tube placement, but were unsuccessful. General Surgery was consulted to place a feeding tube surgically. Procedure, risks, benefits were explained to with risks included but were not limited to infection, bleeding, pain, injury to surrounding structures, possible need for open surgery. understood and consented. OPERATIVE PROCEDURE: The patient was brought to the operating room and placed on the table in supine position. After adequate general anesthesia was established, the patient was prepped and draped in usual sterile fashion. SCDs were in place. Vancomycin had been administered prior to start of the case. Timeout was called. I began by placing a Veress needle in the left upper quadrant about 3 fingerbreadths below the costal margin. I was able to insufflate in the first attempt. Using a 5 mm scope and the Optiview technique, I placed a 5 mm port at the umbilical position. I entered the peritoneal cavity safely. Veress needle was found not to have injured anything in the vicinity. There was no evidence of any blood or GI contents. I did note that the patient did have a [id number] amount of ascites. Initial views showed a mildly dilated colon, Dr. Boyd passed the EGD scope into the stomach and once that was insufflated, we could easily see the stomach superior to the colon. I was able to palpate the stomach through the abdominal wall about 2 fingerbreadths below the costal margin near the midline. Therefore, we did not need to place any of the ports in order to retract the stomach or the colon. We decreased the intra-abdominal pressure from 15 to 10 to allow for closer approximation of the anterior abdominal wall to the stomach. The planned insertion site was anesthetized with 1% Marcaine, 0.5% lidocaine. Introducer needle was inserted under direct vision, both by the laparoscope and the EGD scope. Guidewire was passed. Dr. Boyd pulled it out through the mouth and then attached the PEG tube, which we pulled into position. The collar was sitting at [address] Boyd reinserted the EGD scope. There was no evidence of any bleeding. We had no evidence of any bleeding from the laparoscope. The rest of the stomach appeared normal to Dr. Boyd. She did not find any other abnormalities. The only abnormality was that tight lower esophageal sphincter that was previously mentioned. Abdomen was desufflated. The port was removed; 4-0 Monocryl subcuticular stitch was placed at the umbilicus. Skin was cleaned and dried. Dermabond was placed. The patient tolerated the procedure well. There were no complications. All counts were correct at the end of the case. I spoke with the daughter at the end of the case. JOB# [id number] TARAS/MARK
--- NOTE | 2018-05-26 16:53 | Progress Note ---
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 --DEVIN, likely vasomotor nephropathy, mild improvement Nephrology following, gentle hydration, avoid nephrotoxins --Chronic left hydronephrosis, atrophic left kidney Extensively evaluated by urology during previous admission --Hyperglycemia/type 2 diabetes mellitus Accu-Chek sliding scale coverage and ADA diet, insulin as needed --Acute metabolic encephalopathy; back to baseline mentally alert and awake likely multifactorial.Head CT scan on 05/12/18 neg --Hypokalemia; resolved --Hypernatremia; resolved IVF changed to D/W, will monitor --Severe protein calorie malnutrition -tube feeding via dobhoff discontinued due to aspiration -cont dextrose IVF ,[employer] following --H/O CVA with right-sided hemiparesis cont supportive care --Chronic urinary retention; patient follows with urology cont durán catheter --Physical deconditioning cont fall precautions PT/OT , recommend acute/subacute rehabilitation Patient's family refused --Discharge planning; case management --DVT prophylaxis with SCD No Pharmacologic anticoagulation due to chronic anemia with high risk for bleed History Interval history: Patient seen and examined medical records reviewed No new events reported by the nursing staff Scheduled for PEG placement today, patient is nothing by mouth status Daughter complaints the patient has swelling and pain in the right upper extremity Patient is alert and awake cachectic Vital signs reviewed Hospitalist Physical - Constitutional Vitals: Temp Pulse Resp BP Pulse Ox 97.4 F L 109 H 20 91/58 100 05/26/18 14:57 05/26/18 14:57 05/26/18 14:57 05/26/18 14:57 05/26/18 14:57 General appearance: Present: no acute distress, well-nourished, obese - EENT Eyes: Present: PERRL, EOM intact - Neck Neck: Present: supple, normal ROM - Respiratory Respiratory effort: normal, pursed lips Respiratory: bilateral: diminished, rhonchi, negative: rales, wheezing - Cardiovascular Rhythm: regular Heart Sounds: Present: S1 & S2 - Extremities Extremities: no ischemia, No edema, abnormal (edema. Extremities) - Abdominal General gastrointestinal: soft, non-tender, non-distended, normal bowel sounds - Integumentary Integumentary: Present: clear, warm - Psychiatric Psychiatric: appropriate mood/affect, other (consistent time) - Neurologic Neurologic: moves all extremities, other Results - Labs CBC & Chem 7: 05/24/18 10:59 05/26/18 05:15 Labs: Laboratory Last Values WBC 10.0 K/mm3 (4.5-11.0) 05/24/18 10:59 RBC 4.24 M/mm3 (3.65-5.03) 05/24/18 10:59 Hgb 10.0 gm/dl (11.8-15.2) L 05/24/18 10:59 Hct 33.3 % (35.5-45.6) L 05/24/18 10:59 MCV 79 fl (84-94) L 05/24/18 10:59 MCH 24 pg (28-32) L 05/24/18 10:59 MCHC 30 % (32-34) L 05/24/18 10:59 RDW 26.1 % (13.2-15.2) H 05/24/18 10:59 Plt Count 152 K/mm3 (140-440) 05/24/18 10:59 Lymph % (Auto) Company Secretary 05/24/18 10:59 [place] % (Auto) Company Secretary 05/24/18 10:59 Eos % (Auto) Company Secretary 05/24/18 10:59 Baso % (Auto) Company Secretary 05/24/18 10:59 Lymph # Company Secretary 05/24/18 10:59 [place] # Company Secretary 05/24/18 10:59 Eos # Company Secretary 05/24/18 10:59 Baso # Company Secretary 05/24/18 10:59 Add Manual Diff Complete 05/22/18 06:52 Total Counted 100 05/22/18 06:52 Seg Neutrophils % Company Secretary 05/24/18 10:59 Seg Neuts % (Manual) 97.0 % (40.0-70.0) H 05/22/18 06:52 Band Neutrophils % 0 % 05/22/18 06:52 Lymphocytes % (Manual) 2.0 % (13.4-35.0) L 05/22/18 06:52 Reactive Lymphs % (Man) 0 % 05/22/18 06:52 Monocytes % (Manual) 1.0 % (0.0-7.3) 05/22/18 06:52 Eosinophils % (Manual) 0 % (0.0-4.3) 05/22/18 06:52 Basophils % (Manual) 0 % (0.0-1.8) 05/22/18 06:52 Metamyelocytes % 0 % 05/22/18 06:52 Myelocytes % 0 % 05/22/18 06:52 Promyelocytes % 0 % 05/22/18 06:52 Blast Cells % 0 % 05/22/18 06:52 Nucleated RBC % Not Reportable 05/22/18 06:52 Seg Neutrophils # Company Secretary 05/24/18 10:59 Seg Neutrophils # Man 8.6 K/mm3 (1.8-7.7) H 05/22/18 06:52 Band Neutrophils # 0.0 K/mm3 05/22/18 06:52 Lymphocytes # (Manual) 0.2 K/mm3 (1.2-5.4) L 05/22/18 06:52 Abs React Lymphs (Man) 0.0 K/mm3 05/22/18 06:52 Monocytes # (Manual) 0.1 K/mm3 (0.0-0.8) 05/22/18 06:52 Eosinophils # (Manual) 0.0 K/mm3 (0.0-0.4) 05/22/18 06:52 Basophils # (Manual) 0.0 K/mm3 (0.0-0.1) 05/22/18 06:52 Metamyelocytes # 0.0 K/mm3 05/22/18 06:52 Myelocytes # 0.0 K/mm3 05/22/18 06:52 Promyelocytes # 0.0 K/mm3 05/22/18 06:52 Blast Cells # 0.0 K/mm3 05/22/18 06:52 WBC Morphology Not Reportable 05/22/18 06:52 Hypersegmented Neuts Not Reportable 05/22/18 06:52 Hyposegmented Neuts Not Reportable 05/22/18 06:52 Hypogranular Neuts Not Reportable 05/22/18 06:52 Smudge Cells Not Reportable 05/22/18 06:52 Toxic Granulation Not Reportable 05/22/18 06:52 Toxic Vacuolation Not Reportable 05/22/18 06:52 Dohle Bodies Not Reportable 05/22/18 06:52 Pelger-Huet Anomaly Not Reportable 05/22/18 06:52 Alba Rods Not Reportable 05/22/18 06:52 Platelet Estimate Consistent w auto 05/22/18 06:52 Clumped Platelets Not Reportable 05/22/18 06:52 Plt Clumps, EDTA Not Reportable 05/22/18 06:52 Large Platelets Not Reportable 05/22/18 06:52 Giant Platelets Not Reportable 05/22/18 06:52 Platelet Satelliting Not Reportable 05/22/18 06:52 Plt Morphology Comment Not Reportable 05/22/18 06:52 RBC Morphology Not Reportable 05/22/18 06:52 Dimorphic RBCs Not Reportable 05/22/18 06:52 Polychromasia Not Reportable 05/22/18 06:52 Hypochromasia Few 05/22/18 06:52 Poikilocytosis 1+ 05/22/18 06:52 Anisocytosis 1+ 05/22/18 06:52 Microcytosis Not Reportable 05/22/18 06:52 Macrocytosis Not Reportable 05/22/18 06:52 Spherocytes Not Reportable 05/22/18 06:52 Pappenheimer Bodies Not Reportable 05/22/18 06:52 Sickle Cells Not Reportable 05/22/18 06:52 Target Cells Not Reportable 05/22/18 06:52 Tear Drop Cells Not Reportable 05/22/18 06:52 Ovalocytes Few 05/22/18 06:52 Helmet Cells Not Reportable 05/22/18 06:52 [place] Bodies Not Reportable 05/22/18 06:52 [place] Rings Not Reportable 05/22/18 06:52 [place] Cells Not Reportable 05/22/18 06:52 Bite Cells Not Reportable 05/22/18 06:52 Crenated Cell Not Reportable 05/22/18 06:52 Elliptocytes Not Reportable 05/22/18 06:52 Acanthocytes (Spur) Not Reportable 05/22/18 06:52 Rouleaux Not Reportable 05/22/18 06:52 Hemoglobin C Crystals Not Reportable 05/22/18 06:52 Schistocytes Not Reportable 05/22/18 06:52 Malaria parasites Not Reportable 05/22/18 06:52 James Bodies Not Reportable 05/22/18 06:52 Hem Pathologist Commnt No 05/22/18 06:52 PT 16.4 Sec. (12.2-14.9) H 05/26/18 05:15 INR 1.24 (0.87-1.13) H 05/26/18 05:15 APTT 30.3 Sec. (24.2-36.6) 05/07/18 10:37 POC ABG pH 7.372 (7.35-7.45) 05/14/18 10:36 POC ABG pCO2 31.8 (35-45) L 05/14/18 10:36 POC ABG pO2 83 (80-105) 05/14/18 10:36 POC ABG HCO3 18.5 05/14/18 10:36 POC ABG Total CO2 19 05/14/18 10:36 POC ABG O2 Sat 96 05/14/18 10:36 POC ABG Base Excess -7 05/14/18 10:36 FiO2 21 % 05/14/18 10:36 Sodium 149 mmol/L (137-145) H 05/26/18 05:15 Potassium 3.9 mmol/L (3.6-5.0) 05/26/18 05:15 Chloride 117.4 mmol/L (98-107) H 05/26/18 05:15 Carbon Dioxide 21 mmol/L (22-30) L 05/26/18 05:15 Anion Gap 15 mmol/L 05/26/18 05:15 BUN 43 mg/dL (9-20) H 05/26/18 05:15 Creatinine 2.2 mg/dL (0.8-1.5) H 05/26/18 05:15 Estimated GFR 35 ml/min 05/26/18 05:15 BUN/Creatinine Ratio 20 % 05/26/18 05:15 Glucose 95 mg/dL (75-100) 05/26/18 05:15 POC Glucose 111 (70-105) H 05/26/18 13:23 Hemoglobin A1c 7.6 % (4-6) H 05/08/18 03:15 Osmolality 316 Mosm/kg 05/19/18 01:19 Lactic Acid 1.60 mmol/L (0.7-2.0) 05/07/18 13:21 Uric Acid 9.0 mg/dL (3.5-7.6) H 05/19/18 01:19 Calcium 7.2 mg/dL (8.4-10.2) L 05/26/18 05:15 Phosphorus 3.90 mg/dL (2.5-4.5) 05/23/18 05:03 Magnesium 1.70 mg/dL (1.7-2.3) 05/23/18 05:03 Total Bilirubin 0.20 mg/dL (0.1-1.2) 05/23/18 05:03 AST 10 units/L (5-40) 05/23/18 05:03 ALT < 5 units/L (7-56) L 05/23/18 05:03 Alkaline Phosphatase 50 units/L (35-129) 05/23/18 05:03 Total Protein 4.2 g/dL (6.3-8.2) L 05/23/18 05:03 Albumin 0.9 g/dL (3.9-5) L 05/23/18 05:03 Albumin/Globulin Ratio 0.3 % 05/23/18 05:03 Urine Color Flora (Yellow) 05/24/18 Unknown Urine Turbidity Turbid (Clear) 05/24/18 Unknown Urine pH 5.0 (5.0-7.0) 05/24/18 Unknown Ur Specific [place] 1.019 (1.003-1.030) 05/24/18 Unknown Urine Protein 100 mg/dl mg/dL (Negative) 05/24/18 Unknown Urine Glucose (UA) Neg mg/dL (Negative) 05/24/18 Unknown Urine Ketones Neg mg/dL (Negative) 05/24/18 Unknown Urine Blood Mod (Negative) 05/24/18 Unknown Urine Nitrite Neg (Negative) 05/24/18 Unknown Urine Bilirubin Neg (Negative) 05/24/18 Unknown Urine Urobilinogen < 2.0 mg/dL (<2.0) 05/24/18 Unknown Ur Leukocyte Esterase Lg (Negative) 05/24/18 Unknown Urine WBC (Auto) > 182.0 /HPF (0.0-6.0) H 05/24/18 Unknown Urine RBC (Auto) > 182.0 /HPF (0.0-6.0) 05/24/18 Unknown U Epithel Cells (Auto) < 1.0 /HPF (0-13.0) 05/07/18 12:20 Urine Bacteria (Auto) 1+ /HPF (Negative) 05/07/18 12:20 Urine Mucus Few /HPF 05/07/18 12:20 Urine Yeast (Budding) 3+ /HPF 05/24/18 Unknown Immunofix Electrophor see below 05/19/18 01:19 Influenza A (Rapid) Negative (Negative) 05/12/18 Unknown Influenza A (RT-PCR) Negative (Negative) 05/12/18 Unknown Influenza B (Rapid) Negative (Negative) 05/12/18 Unknown Influenza B (RT-PCR) Negative (Negative) 05/12/18 Unknown Blood Type O POSITIVE 05/22/18 10:08 Antibody Screen Negative 05/22/18 10:08 Crossmatch See Detail 05/22/18 10:08 Nutrition/Malnutrition Assess - Dietary Evaluation Nutrition/Malnutrition Findings: Nutrition Notes Start: 05/08/18 09:32 Freq: Status: Active Protocol: Document 05/26/18 15:55 VIVIENNE (Rec: 05/26/18 16:19 VIVIENNE SRW- [email or web address]) Nutrition Notes Initial or Follow up Reassessment Current Diagnosis Acute Kidney Injury Diabetes Other Pertinent Diagnosis Dysphagia, anemia Current Diet TF - Glucerna 1.2 at 65ml/hr Labs/Tests Na 149 BUN 43 Cr 2.2 Pertinent Medications Ferrous sulfate, calcium carbonate Height 5 ft 6 in Weight 99.3 kg [place] Body Weight (kg) 64.54 BMI 35.3 Subjective/Other Information Pt had PEG placed today. Per RNMD wants to restart TF at 16:00 today. Burn Absent Trauma Absent #1 Nutrition Diagnosis Inadequate oral intake Diagnosis Progress(for reassessment Continues documentation) Is patient on ventilator? No Is Patient Ambulatory and/or Out of Bed No REE-([facility]-confined to bed) 1981.392 Kcal/Kg value to use for calculation 17 Approximate Energy Requirements Using 1688 kcal/Kg Calculation Used for Recommendations [facility] Additional Notes Pro needs 1-1.2g/kg adjBW: 82- 98g/day Fluid needs 1ml/kcal Nutrition Intervention Nutrition Support: Restart Glucerna 1.2 at 60ml/ hr. Provide 100ml water flush q4h. Kcal 1,728 Protein (gm) 86 Fluid (mL) 1,159 Fiber (gm) 23 Goal #1 TF tolerance Goal #2 TF to meet at least 75% energy and pro needs Follow-Up By: 05/28/18 Additional Comments F/U: TF restart/tolerance
--- NOTE | 2018-05-26 17:21 | Post Anesthesia Evaluation ---
- Post Anesthesia Evaluation Patient Participated: Yes Airway Patent: Yes Stable Respiratory Function: Yes Nausea/Vomiting: No Temp > 96.8F: Yes Pain Manageable: Yes Adequeate Hydration: Yes Anesthesia Complications: No Block Receding Appropriately: Not Applicable Patient on Ventilator: No
[2018-05-26] MEDS ORDERED: D5NS 1,000 ML IV SCH (18:00)
[2018-05-26] MEDS: D5NS 1,000 ML IV SCH (18:09)
[2018-05-26] MEDS: PRAVACHOL PO SCH (21:51)
[2018-05-26] MEDS: SODIUM CHLORIDE FLUSH SYRINGE 10 ML IV SCH (21:52)
[2018-05-27] MEDS: HumaLOG SUB-Q SCH ×5 (06:58→19:03)
[2018-05-27] MEDS ORDERED: CARAFATE FEEDTUBE SCH (07:07)
[2018-05-27] MEDS ORDERED: PERCOCET 5/325 FEEDTUBE PRN (07:30)
[2018-05-27] MEDS: SODIUM CHLORIDE FLUSH SYRINGE 10 ML IV SCH ×2 (09:16→23:11)
[2018-05-27] MEDS: FERROUS SULFATE FEEDTUBE SCH ×2 (09:22→23:09)
[2018-05-27] MEDS: CALCIUM CARBONATE FEEDTUBE SCH ×2 (09:22→23:10)
[2018-05-27] MEDS: D5NS 1,000 ML IV SCH (09:23)
[2018-05-27] MEDS: PREVACID SOLUTAB FEEDTUBE SCH (09:24)
[2018-05-27] MEDS: CARAFATE FEEDTUBE SCH ×2 (11:00→23:10)
--- NOTE | 2018-05-27 11:03 | Progress Note ---
Assessment and Plan - Patient Problems (1) Dysphagia Current Visit: Yes Status: Acute Qualifiers: Dysphagia type: oropharyngeal phase Qualified Code(s): R13.12 - Dysphagia, oropharyngeal phase Plan to address problem: Pt stable. s/p Lap assisted PEG placement - 05/26/18- POD#1. There are no co ncerning signs on exam. Not sure if the high gastric residuals are related to the procedure yesterday or if he has some underlying gastric emptying dysfunction. Previously, the feeding tube was in the duodenum. Therefore we are unable to say based on his recent history whether or not he has had issues with the stomach. Family denies him having any issues in the past. Discussed with the hospitalists. Will try a short course of Reglan. If his residuals improve, there may be some underlying dysfunction. Please call with questions. Subjective Date of service: 05/27/18 Patient Reports: Positive: other (nurse reports that the gastric residuals have been high.) Objective Vital Signs - 12hr 05/27/18 05/27/18 05/27/18 00:00 02:00 07:24 Temperature 97.8 F 97.5 F L Pulse Rate 101 H Pulse Rate [ 101 H Right Radial] Respiratory 18 18 22 Rate Blood Pressure 107/64 Blood Pressure 100/56 [Left] O2 Sat by Pulse 95 95 Oximetry - General physical appearance no distress, no pain, other (awake and interactive) - Respiratory normal expansion, normal respiratory effort - Abdomen soft, not tender, not distended, other (PEG in place. no drainage noted. No erythema. ) - Integumentary no rash, no growths, no abnormal pigmentation - Labs 05/24/18 10:59 05/26/18 05:15
[2018-05-27] MEDS: REGLAN FEEDTUBE SCH ×4 (12:05→23:09)
[2018-05-27 13:06] LABS: BUN/Creatinine Ratio 20; Blood Urea Nitrogen 39 mg/dL (9-20); Hemolysis Index 10
[2018-05-27 13:15] LABS: Calcium TNR mg/dL (8.4-10.2)
[2018-05-27 15:02] LABS: Hematocrit 26.3 % (35.5-45.6); Hemoglobin 8.2 gm/dl (11.8-15.2); Mean Corpuscular HGB Conc 31 % (32-34); Mean Corpuscular Volume 76 fl (84-94); Platelet Count 149 K/mm3 (140-440); Red Blood Count 3.48 M/mm3 (3.65-5.03)
[2018-05-27 15:11] LABS: Calcium 7.1 mg/dL (8.4-10.2)
--- NOTE | 2018-05-27 15:34 | Progress Note ---
Assessment and Plan - Patient Problems (1) Hypernatremia Current Visit: Yes Status: Acute Plan to address problem: acute hypernatremia : improving - 2/2 free water deficit - Will stop D5W /0.9% Saline - Will change to D5W @ 125m/hr - Recheck RFP . (2) Acute renal insufficiency Current Visit: No Status: Acute Plan to address problem: Acute kidney injury : Baseline creatinine 1.0-1.4mg/dl current creatinine is : 2.2mg/dl I reviewed CT with left hydronephrosis involving proximal third of ureter Will obtain repeat renal US to further evaluate obstruction etiology of DEVIN is likely 2/2 obstructive uropathy with ATN Durán was placed by urology per nursing staff continue durán in place. (3) Anemia Current Visit: Yes Status: Acute Qualifiers: Anemia type: due to chronic kidney disease Plan to address problem: Moderate Anemia :worsening Hb: 10g/dl-- 8.2g/dl monitor for occult blood loss Monitor CBC. (4) Metabolic acidosis Current Visit: Yes Status: Acute Plan to address problem: Metabolic acidosis 2/2 DEVIN - Hco3 : 21 - Will add bicarbonate orally or IV if acidosis worsens. We will follow with you. Thank you for allowing us participate in his care Subjective Principal diagnosis: acute kidney injury follow up . Interval history: 78 year old gentleman with medical history signficant for HTN , urinary retention ,sepsis admitted with fever and weakness He was seen today , family at bedside , durán remains in place Denies any complaints. Denies any fever or chills. No orthopnea or PND. Objective - Vital Signs Vital signs: Vital Signs - 12hr 05/27/18 05/27/18 05/27/18 07:24 12:00 13:28 Temperature 97.5 F L 97.8 F Respiratory 22 18 22 Rate Blood Pressure 107/64 124/68 O2 Sat by Pulse 94 Oximetry - General Appearance General appearance: well-developed, obese EENT: PERRL, mucous membranes moist Neck: no JVD, supple Respiratory: Present: Clear to Ascultation Cardiology: S1S2 Gastrointestinal: normal, normoactive bowel sounds Integumentary: no rash Neurologic: other (awake and alert , weakness ) Musculoskeletal: deferred Psychiatric: mood/affect appropriate - Lab 05/27/18 14:35 05/27/18 14:35 Most recent lab results Calcium 7.1 mg/dL (8.4-10.2) L 05/27/18 14:35 Phosphorus 3.30 mg/dL (2.5-4.5) 05/27/18 14:35 Magnesium 1.90 mg/dL (1.7-2.3) 05/27/18 14:35 - Imaging Other: image reviewed Medications & Allergies - Medications Allergies/Adverse Reactions: Allergies Penicillins Allergy (Verified 04/11/18 16:00) Unknown Home Medications: Home Medications Medication Instructions Recorded Confirmed Last Taken Type Clopidogrel Bisulfate [Plavix] 75 mg PO DAILY #0 09/21/17 05/07/18 04/24/18 12:00 History Famotidine [Pepcid] 20 mg PO DAILY #0 09/21/17 05/07/18 04/24/18 History 20mg Simvastatin 40 mg PO HS 09/21/17 05/07/18 04/24/18 08:00 History 20 mg Sucralfate [Carafate] 1 gram PO BID #0 09/21/17 05/07/18 04/24/18 12:00 History 1 gm Ferrous Sulfate [Feosol 325 MG tab] 325 mg PO BID #60 tablet 05/04/18 05/07/18 Unknown Rx Active Medications: Generic Name Dose Route Start Last Admin Trade Name Garryq PRN Reason Stop Dose Admin Acetaminophen 650 mg 05/27/18 07:30 Tylenol FEEDTUBE Q4H PRN Pain MILD(1-3)/Fever >100.5/MACIAS Albuterol 2.5 mg 05/10/18 15:59 Proventil IH Q4HRT PRN Shortness Of Breath Lipase/Protease/Amylase 1 each 05/26/18 16:[address] 10,500 Unit FEEDTUBE PRN PRN For Clogged Feeding Tube Bisacodyl 10 mg 05/16/18 13:02 05/16/18 13:54 Dulcolax [place] 10 mg QDAY PRN Administration Constipation Calcium Carbonate/Glycine 1,250 mg 05/24/18 10:00 05/27/18 09:22 Calcium Carbonate FEEDTUBE 1,250 mg BID FREDI Administration Dextrose 50 ml 05/19/18 05:05 D50w (25gm) Syringe IV PRN PRN Hypoglycemia Ferrous Sulfate 308 mg 05/27/18 10:00 05/27/18 09:22 Ferrous Sulfate FEEDTUBE 308 mg BID FREDI Administration Hydromorphone HCl 0.5 mg 05/08/18 02:22 Dilaudid IV Q3H PRN Pain , Severe (7-10) Sodium Bicarbonate 100 meq/ 1,100 mls @ 150 mls/hr 05/21/18 09:00 05/22/18 18:09 Dextrose IV 150 mls/hr DIRECT FREDI Administration Sodium Bicarbonate 50 meq/ 1,050 mls @ 100 mls/hr 05/23/18 13:00 Dextrose IV DIRECT FREDI Lactated Ringer's 1,000 mls @ 42 mls/hr 05/26/18 12:00 05/26/18 11:47 Lactated Ringers IV 42 mls/hr DIRECT FREDI Administration Dextrose/Sodium Chloride 1,000 mls @ 75 mls/hr 05/26/18 17:39 05/27/18 09:23 D5ns IV 75 mls/hr DIRECT FREDI Administration Insulin Human Lispro 0 unit 05/25/18 13:00 05/27/18 12:06 Humalog SUB-Q Not Given Q6HR [facility] Protocol Lansoprazole 30 mg 05/23/18 10:00 05/27/18 09:24 Prevacid Solutab FEEDTUBE 30 mg QDAY FREDI Administration Metoclopramide HCl 5 mg 05/27/18 11:30 05/27/18 12:08 Reglan FEEDTUBE 5 mg ACHS FREDI Administration Ondansetron HCl 4 mg 05/08/18 02:22 Zofran IV Q8H PRN Nausea And Vomiting Oxycodone/Acetaminophen 1 tab 05/27/18 07:30 Percocet 5/325 FEEDTUBE Q6H PRN Pain, Moderate (4-6) Pravastatin Sodium 80 mg 05/27/18 22:00 Pravachol FEEDTUBE QHS FREDI Simple Syrup 15 ml 05/26/18 16:21 Simple Syrup FEEDTUBE PRN PRN Hypoglycemia Simple Syrup 30 ml 05/26/18 16:21 Simple Syrup FEEDTUBE PRN PRN Hypoglycemia Sodium Bicarbonate 325 mg 05/26/18 16:21 Sodium Bicarbonate FEEDTUBE PRN PRN For Clogged Feeding Tube Sodium Chloride 10 ml 05/08/18 10:00 05/27/18 09:16 Sodium Chloride Flush Syringe 10 Ml IV Not Given BID FREDI Sodium Chloride 10 ml 05/08/18 02:22 05/08/18 03:56 Sodium Chloride Flush Syringe 10 Ml IV 10 ml PRN PRN Administration LINE FLUSH Sucralfate 1 gm 05/27/18 10:00 05/27/18 11:00 Carafate FEEDTUBE 1 gm BID FREDI Administration
--- NOTE | 2018-05-27 16:06 | Progress Note ---
Assessment and Plan Assessment and plan: --Oropharngeal dysphagia; s/p Laparoscopic PEG placement Started on tube feeds, unable to tolerate, reduce flow rate to 20 mL per hour increase as tolerated Dr. 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 --DEVIN, likely vasomotor nephropathy, mild improvement Nephrology following, gentle hydration, avoid nephrotoxins --Chronic left hydronephrosis, atrophic left kidney Extensively evaluated by urology during previous admission --Hyperglycemia/type 2 diabetes mellitus Accu-Chek sliding scale coverage and ADA diet, insulin as needed --Acute metabolic encephalopathy; back to baseline mentally alert and awake likely multifactorial.Head CT scan on 05/12/18 neg --Hypokalemia; resolved --Hypernatremia; IVF changed to D/W, will monitor --Severe protein calorie malnutrition PEG feeds per protocol,nutrition supplements --H/O CVA with right-sided hemiparesis, supportive care --Chronic urinary retention; urology rec, cont durán catheter --Physical deconditioning; PT/OT , recommend acute/subacute rehabilitation Patient's family refused, --Discharge planning; home with home health as requested by family Medically stable --DVT prophylaxis with SCD No Pharmacologic anticoagulation due to chronic anemia with high risk for bleed Plan of care is reviewed with the patient daughter and at the bedside, addressed their questions and concerns History Interval history: Patient seen and examined medical records reviewed The patient underwent PEG tube placement yesterday, it started today Unable to tolerate, we will reduce the fluid rate to 20 mL increase as tolerated Patient feels slightly better No new complaints Family members at the bedside Hospitalist Physical - Constitutional Vitals: Temp Pulse Resp BP Pulse Ox 97.8 F 101 H 22 124/68 94 05/27/18 13:28 05/27/18 02:00 05/27/18 13:28 05/27/18 13:28 05/27/18 12:00 General appearance: Present: no acute distress, well-nourished, obese - EENT Eyes: Present: PERRL, EOM intact - Neck Neck: Present: supple, normal ROM - Respiratory Respiratory effort: normal Respiratory: bilateral: diminished, negative: rales, rhonchi, wheezing - Cardiovascular Rhythm: regular Heart Sounds: Present: S1 & S2 - Extremities Extremities: no ischemia, abnormal (upper extremity edema significantly improved) - Abdominal General gastrointestinal: soft, non-tender, non-distended, normal bowel sounds, other (PEG tube in place) - Integumentary Integumentary: Present: clear, warm - Psychiatric Psychiatric: appropriate mood/affect, other (responds appropriately to simple questions confused at times) - Neurologic Neurologic: other (residual right-sided weakness) Results - Labs CBC & Chem 7: 05/27/18 14:35 05/27/18 14:35 Labs: Laboratory Last Values WBC 8.9 K/mm3 (4.5-11.0) 05/27/18 14:35 RBC 3.48 M/mm3 (3.65-5.03) L 05/27/18 14:35 Hgb 8.2 gm/dl (11.8-15.2) L 05/27/18 14:35 Hct 26.3 % (35.5-45.6) L 05/27/18 14:35 MCV 76 fl (84-94) L 05/27/18 14:35 MCH 24 pg (28-32) L 05/27/18 14:35 MCHC 31 % (32-34) L 05/27/18 14:35 RDW 26.0 % (13.2-15.2) H 05/27/18 14:35 Plt Count 149 K/mm3 (140-440) 05/27/18 14:35 Lymph % (Auto) Ux Developer Designer 05/24/18 10:59 [place] % (Auto) Ux Developer Designer 05/24/18 10:59 Eos % (Auto) Ux Developer Designer 05/24/18 10:59 Baso % (Auto) Ux Developer Designer 05/24/18 10:59 Lymph # Ux Developer Designer 05/24/18 10:59 [place] # Ux Developer Designer 05/24/18 10:59 Eos # Ux Developer Designer 05/24/18 10:59 Baso # Ux Developer Designer 05/24/18 10:59 Add Manual Diff Complete 05/22/18 06:52 Total Counted 100 05/22/18 06:52 Seg Neutrophils % Ux Developer Designer 05/24/18 10:59 Seg Neuts % (Manual) 97.0 % (40.0-70.0) H 05/22/18 06:52 Band Neutrophils % 0 % 05/22/18 06:52 Lymphocytes % (Manual) 2.0 % (13.4-35.0) L 05/22/18 06:52 Reactive Lymphs % (Man) 0 % 05/22/18 06:52 Monocytes % (Manual) 1.0 % (0.0-7.3) 05/22/18 06:52 Eosinophils % (Manual) 0 % (0.0-4.3) 05/22/18 06:52 Basophils % (Manual) 0 % (0.0-1.8) 05/22/18 06:52 Metamyelocytes % 0 % 05/22/18 06:52 Myelocytes % 0 % 05/22/18 06:52 Promyelocytes % 0 % 05/22/18 06:52 Blast Cells % 0 % 05/22/18 06:52 Nucleated RBC % Not Reportable 05/22/18 06:52 Seg Neutrophils # Ux Developer Designer 05/24/18 10:59 Seg Neutrophils # Man 8.6 K/mm3 (1.8-7.7) H 05/22/18 06:52 Band Neutrophils # 0.0 K/mm3 05/22/18 06:52 Lymphocytes # (Manual) 0.2 K/mm3 (1.2-5.4) L 05/22/18 06:52 Abs React Lymphs (Man) 0.0 K/mm3 05/22/18 06:52 Monocytes # (Manual) 0.1 K/mm3 (0.0-0.8) 05/22/18 06:52 Eosinophils # (Manual) 0.0 K/mm3 (0.0-0.4) 05/22/18 06:52 Basophils # (Manual) 0.0 K/mm3 (0.0-0.1) 05/22/18 06:52 Metamyelocytes # 0.0 K/mm3 05/22/18 06:52 Myelocytes # 0.0 K/mm3 05/22/18 06:52 Promyelocytes # 0.0 K/mm3 05/22/18 06:52 Blast Cells # 0.0 K/mm3 05/22/18 06:52 WBC Morphology Not Reportable 05/22/18 06:52 Hypersegmented Neuts Not Reportable 05/22/18 06:52 Hyposegmented Neuts Not Reportable 05/22/18 06:52 Hypogranular Neuts Not Reportable 05/22/18 06:52 Smudge Cells Not Reportable 05/22/18 06:52 Toxic Granulation Not Reportable 05/22/18 06:52 Toxic Vacuolation Not Reportable 05/22/18 06:52 Dohle Bodies Not Reportable 05/22/18 06:52 Pelger-Huet Anomaly Not Reportable 05/22/18 06:52 Alba Rods Not Reportable 05/22/18 06:52 Platelet Estimate Consistent w auto 05/22/18 06:52 Clumped Platelets Not Reportable 05/22/18 06:52 Plt Clumps, EDTA Not Reportable 05/22/18 06:52 Large Platelets Not Reportable 05/22/18 06:52 Giant Platelets Not Reportable 05/22/18 06:52 Platelet Satelliting Not Reportable 05/22/18 06:52 Plt Morphology Comment Not Reportable 05/22/18 06:52 RBC Morphology Not Reportable 05/22/18 06:52 Dimorphic RBCs Not Reportable 05/22/18 06:52 Polychromasia Not Reportable 05/22/18 06:52 Hypochromasia Few 05/22/18 06:52 Poikilocytosis 1+ 05/22/18 06:52 Anisocytosis 1+ 05/22/18 06:52 Microcytosis Not Reportable 05/22/18 06:52 Macrocytosis Not Reportable 05/22/18 06:52 Spherocytes Not Reportable 05/22/18 06:52 Pappenheimer Bodies Not Reportable 05/22/18 06:52 Sickle Cells Not Reportable 05/22/18 06:52 Target Cells Not Reportable 05/22/18 06:52 Tear Drop Cells Not Reportable 05/22/18 06:52 Ovalocytes Few 05/22/18 06:52 Helmet Cells Not Reportable 05/22/18 06:52 [place] Bodies Not Reportable 05/22/18 06:52 [place] Rings Not Reportable 05/22/18 06:52 [place] Cells Not Reportable 05/22/18 06:52 Bite Cells Not Reportable 05/22/18 06:52 Crenated Cell Not Reportable 05/22/18 06:52 Elliptocytes Not Reportable 05/22/18 06:52 Acanthocytes (Spur) Not Reportable 05/22/18 06:52 Rouleaux Not Reportable 05/22/18 06:52 Hemoglobin C Crystals Not Reportable 05/22/18 06:52 Schistocytes Not Reportable 05/22/18 06:52 Malaria parasites Not Reportable 05/22/18 06:52 James Bodies Not Reportable 05/22/18 06:52 Hem Pathologist Commnt No 05/22/18 06:52 PT 16.4 Sec. (12.2-14.9) H 05/26/18 05:15 INR 1.24 (0.87-1.13) H 05/26/18 05:15 APTT 30.3 Sec. (24.2-36.6) 05/07/18 10:37 POC ABG pH 7.372 (7.35-7.45) 05/14/18 10:36 POC ABG pCO2 31.8 (35-45) L 05/14/18 10:36 POC ABG pO2 83 (80-105) 05/14/18 10:36 POC ABG HCO3 18.5 05/14/18 10:36 POC ABG Total CO2 19 05/14/18 10:36 POC ABG O2 Sat 96 05/14/18 10:36 POC ABG Base Excess -7 05/14/18 10:36 FiO2 21 % 05/14/18 10:36 Sodium 147 mmol/L (137-145) H 05/27/18 14:35 Potassium 4.2 mmol/L (3.6-5.0) 05/27/18 14:35 Chloride 116.5 mmol/L (98-107) H 05/27/18 14:35 Carbon Dioxide 21 mmol/L (22-30) L 05/27/18 14:35 Anion Gap 14 mmol/L 05/27/18 14:35 BUN 45 mg/dL (9-20) H 05/27/18 14:35 Creatinine 2.2 mg/dL (0.8-1.5) H 05/27/18 14:35 Estimated GFR 35 ml/min 05/27/18 14:35 BUN/Creatinine Ratio 20 % 05/27/18 14:35 Glucose 187 mg/dL (75-100) H 05/27/18 14:35 POC Glucose 160 (70-105) H 05/27/18 11:34 Hemoglobin A1c 7.6 % (4-6) H 05/08/18 03:15 Osmolality 316 Mosm/kg 05/19/18 01:19 Lactic Acid 1.60 mmol/L (0.7-2.0) 05/07/18 13:21 Uric Acid 9.0 mg/dL (3.5-7.6) H 05/19/18 01:19 Calcium 7.1 mg/dL (8.4-10.2) L 05/27/18 14:35 Phosphorus 3.30 mg/dL (2.5-4.5) 05/27/18 14:35 Magnesium 1.90 mg/dL (1.7-2.3) 05/27/18 14:35 Total Bilirubin 0.20 mg/dL (0.1-1.2) 05/23/18 05:03 AST 10 units/L (5-40) 05/23/18 05:03 ALT < 5 units/L (7-56) L 05/23/18 05:03 Alkaline Phosphatase 50 units/L (35-129) 05/23/18 05:03 Total Protein 4.2 g/dL (6.3-8.2) L 05/23/18 05:03 Albumin 0.9 g/dL (3.9-5) L 05/23/18 05:03 Albumin/Globulin Ratio 0.3 % 05/23/18 05:03 Urine Color Flora (Yellow) 05/24/18 Unknown Urine Turbidity Turbid (Clear) 05/24/18 Unknown Urine pH 5.0 (5.0-7.0) 05/24/18 Unknown Ur Specific [place] 1.019 (1.003-1.030) 05/24/18 Unknown Urine Protein 100 mg/dl mg/dL (Negative) 05/24/18 Unknown Urine Glucose (UA) Neg mg/dL (Negative) 05/24/18 Unknown Urine Ketones Neg mg/dL (Negative) 05/24/18 Unknown Urine Blood Mod (Negative) 05/24/18 Unknown Urine Nitrite Neg (Negative) 05/24/18 Unknown Urine Bilirubin Neg (Negative) 05/24/18 Unknown Urine Urobilinogen < 2.0 mg/dL (<2.0) 05/24/18 Unknown Ur Leukocyte Esterase Lg (Negative) 05/24/18 Unknown Urine WBC (Auto) > 182.0 /HPF (0.0-6.0) H 05/24/18 Unknown Urine RBC (Auto) > 182.0 /HPF (0.0-6.0) 05/24/18 Unknown U Epithel Cells (Auto) < 1.0 /HPF (0-13.0) 05/07/18 12:20 Urine Bacteria (Auto) 1+ /HPF (Negative) 05/07/18 12:20 Urine Mucus Few /HPF 05/07/18 12:20 Urine Yeast (Budding) 3+ /HPF 05/24/18 Unknown Immunofix Electrophor see below 05/19/18 01:19 Influenza A (Rapid) Negative (Negative) 05/12/18 Unknown Influenza A (RT-PCR) Negative (Negative) 05/12/18 Unknown Influenza B (Rapid) Negative (Negative) 05/12/18 Unknown Influenza B (RT-PCR) Negative (Negative) 05/12/18 Unknown Blood Type O POSITIVE 05/22/18 10:08 Antibody Screen Negative 05/22/18 10:08 Crossmatch See Detail 05/22/18 10:08 Nutrition/Malnutrition Assess - Dietary Evaluation Nutrition/Malnutrition Findings: Nutrition Notes Start: 05/08/18 09:32 Freq: Status: Active Protocol: Document 05/26/18 15:55 [facility] (Rec: 05/26/18 16:19 [facility] [id number]) Nutrition Notes Initial or Follow up Reassessment Current Diagnosis Acute Kidney Injury,Diabetes Other Pertinent Diagnosis Dysphagia, anemia Current Diet TF - Glucerna 1.2 at 65ml/hr Labs/Tests Na 149 BUN 43 Cr 2.2 Pertinent Medications Ferrous sulfate, calcium carbonate Height 5 ft 6 in Weight 99.3 kg [place] Body Weight (kg) 64.54 BMI 35.3 Subjective/Other Information Pt had PEG placed today. Per RNMD wants to restart TF at 16:00 today. Burn Absent Trauma Absent #1 Nutrition Diagnosis Inadequate oral intake Diagnosis Progress(for reassessment Continues documentation) Is patient on ventilator? No Is Patient Ambulatory and/or Out of Bed No REE-([facility]-confined to bed) 1981.392 Kcal/Kg value to use for calculation 17 Approximate Energy Requirements Using 1688 kcal/Kg Calculation Used for Recommendations Ayana Cuellar Additional Notes Pro needs 1-1.2g/kg adjBW: 82- 98g/day Fluid needs 1ml/kcal Nutrition Intervention Nutrition Support: Restart Glucerna 1.2 at 60ml/ hr. Provide 100ml water flush q4h. Kcal 1,728 Protein (gm) 86 Fluid (mL) 1,159 Fiber (gm) 23 Goal #1 TF tolerance Goal #2 TF to meet at least 75% energy and pro needs Follow-Up By: 05/28/18 Additional Comments F/U: TF restart/tolerance
[2018-05-27] MEDS: D5W 1,000 ML IV SCH (16:36)
[2018-05-27 18:59] LABS: Anisocytosis 1+; Basophils % (Manual) 0 % (0.0-1.8); Hypochromasia 1+; Platelet Estimate Consistent w Auto; Target Cells 1+; Total Cells Counted 100
[2018-05-27] MEDS: PRAVACHOL FEEDTUBE SCH (23:10)
[2018-05-28] MEDS: TYLENOL FEEDTUBE PRN (01:45)
[2018-05-28] MEDS: HumaLOG SUB-Q SCH ×4 (02:16→23:33)
[2018-05-28] MEDS: D5W 1,000 ML IV SCH (02:51)
--- NOTE | 2018-05-28 07:27 | Progress Note ---
Assessment and Plan - Patient Problems (1) Hypernatremia Current Visit: Yes Status: Acute Plan to address problem: acute hypernatremia : - 2/2 free water deficit - Will stop D5W /0.9% Saline - Will increase D5W @ 150ml/hr - Recheck RFP . (2) Acute renal insufficiency Current Visit: No Status: Acute Plan to address problem: Acute kidney injury : Baseline creatinine 1.0-1.4mg/dl current creatinine is : 2.2mg/dl I reviewed CT with left hydronephrosis involving proximal third of ureter Will obtain repeat renal US to further evaluate obstruction etiology of DEVIN is likely 2/2 obstructive uropathy with ATN Durán was placed by urology per nursing staff continue durán in place. (3) Anemia Current Visit: Yes Status: Acute Qualifiers: Anemia type: due to chronic kidney disease Plan to address problem: Moderate Anemia :worsening Hb: 10g/dl-- 8.2g/dl monitor for occult blood loss Monitor CBC. (4) Metabolic acidosis Current Visit: Yes Status: Acute Plan to address problem: Metabolic acidosis 2/2 DEVIN - Hco3 : 21 - Will add bicarbonate orally or IV if acidosis worsens. Subjective Principal diagnosis: acute kidney injury follow up . Interval history: 78 year old gentleman with medical history signficant for HTN , urinary retention ,sepsis admitted with fever and weakness Objective - Vital Signs Vital signs: Vital Signs - 12hr 05/27/18 05/27/18 05/27/18 19:45 20:00 20:08 Temperature 99 F Pulse Rate 117 H Respiratory 20 Rate Blood Pressure 107/64 O2 Sat by Pulse 95 97 Oximetry 05/28/18 05/28/18 05/28/18 01:12 01:13 01:16 Temperature 100.4 F H Pulse Rate 134 H Respiratory 20 Rate Blood Pressure 131/66 O2 Sat by Pulse 96 Oximetry - Lab 05/27/18 14:35 05/28/18 04:49 Most recent lab results Calcium 7.0 mg/dL (8.4-10.2) L 05/28/18 04:49 Phosphorus 3.30 mg/dL (2.5-4.5) 05/27/18 14:35 Magnesium 1.90 mg/dL (1.7-2.3) 05/27/18 14:35 Medications & Allergies - Medications Allergies/Adverse Reactions: Allergies Penicillins Allergy (Verified 04/11/18 16:00) Unknown Home Medications: Home Medications Medication Instructions Recorded Confirmed Last Taken Type Clopidogrel Bisulfate [Plavix] 75 mg PO DAILY #0 09/21/17 05/07/18 04/24/18 12:00 History Famotidine [Pepcid] 20 mg PO DAILY #0 09/21/17 05/07/18 04/24/18 History 20mg Simvastatin 40 mg PO HS 09/21/17 05/07/18 04/24/18 08:00 History 20 mg Sucralfate [Carafate] 1 gram PO BID #0 09/21/17 05/07/18 04/24/18 12:00 History 1 gm Ferrous Sulfate [Feosol 325 MG tab] 325 mg PO BID #60 tablet 05/04/18 05/07/18 Unknown Rx Active Medications: Generic Name Dose Route Start Last Admin Trade Name Freq PRN Reason Stop Dose Admin Acetaminophen 650 mg 05/27/18 07:30 05/28/18 01:45 Tylenol FEEDTUBE 650 mg Q4H PRN Administration Pain MILD(1-3)/Fever >100.5/MACIAS Albuterol 2.5 mg 05/10/18 15:59 Proventil IH Q4HRT PRN Shortness Of Breath Lipase/Protease/Amylase 1 each 05/26/18 16:21 Pancreaze 10,500 Unit FEEDTUBE PRN PRN For Clogged Feeding Tube Bisacodyl 10 mg 05/16/18 13:02 05/16/18 13:54 Dulcolax MO 10 mg QDAY PRN Administration Constipation Calcium Carbonate/Glycine 1,250 mg 05/24/18 10:00 05/27/18 23:10 Calcium Carbonate FEEDTUBE 1,250 mg BID FREDI Administration Dextrose 50 ml 05/19/18 05:05 D50w (25gm) Syringe IV PRN PRN Hypoglycemia Ferrous Sulfate 308 mg 05/27/18 10:00 05/27/18 23:09 Ferrous Sulfate FEEDTUBE 308 mg BID FREDI Administration Hydromorphone HCl 0.5 mg 05/08/18 02:22 Dilaudid IV Q3H PRN Pain , Severe (7-10) Dextrose 1,000 mls @ 125 mls/hr 05/27/18 16:00 05/28/18 02:51 D5w IV 125 mls/hr DIRECT FREDI Administration Insulin Human Lispro 0 unit 05/25/18 13:00 05/28/18 06:31 Humalog SUB-Q 3 unit Q6HR FREDI Administration Protocol Lansoprazole 30 mg 05/23/18 10:00 05/27/18 09:24 Prevacid Solutab FEEDTUBE 30 mg QDAY FREDI Administration Metoclopramide HCl 5 mg 05/27/18 11:30 05/27/18 23:09 Reglan FEEDTUBE 5 mg ACHS FREDI Administration Ondansetron HCl 4 mg 05/08/18 02:22 Zofran IV Q8H PRN Nausea And Vomiting Oxycodone/Acetaminophen 1 tab 05/27/18 07:30 Percocet 5/325 FEEDTUBE Q6H PRN Pain, Moderate (4-6) Pravastatin Sodium 80 mg 05/27/18 22:00 05/27/18 23:10 Pravachol FEEDTUBE 80 mg QHS FREDI Administration Simple Syrup 15 ml 05/26/18 16:21 Simple Syrup FEEDTUBE PRN PRN Hypoglycemia Simple Syrup 30 ml 05/26/18 16:21 Simple Syrup FEEDTUBE PRN PRN Hypoglycemia Sodium Bicarbonate 325 mg 05/26/18 16:21 Sodium Bicarbonate FEEDTUBE PRN PRN For Clogged Feeding Tube Sodium Chloride 10 ml 05/08/18 10:00 05/27/18 23:11 Sodium Chloride Flush Syringe 10 Ml IV 10 ml BID FREDI Administration Sodium Chloride 10 ml 05/08/18 02:22 05/08/18 03:56 Sodium Chloride Flush Syringe 10 Ml IV 10 ml PRN PRN Administration LINE FLUSH Sucralfate 1 gm 05/27/18 10:00 05/27/18 23:10 Carafate FEEDTUBE 1 gm BID FREDI Administration
[2018-05-28] MEDS ORDERED: SODIUM BICARBONATE FEEDTUBE PRN (08:36)
[2018-05-28] MEDS ORDERED: PANCREAZE DR 10,500 UNIT FEEDTUBE PRN (08:36)
[2018-05-28] MEDS ORDERED: SIMPLE SYRUP FEEDTUBE PRN ×2 (08:36)
--- NOTE | 2018-05-28 09:04 | Progress Note ---
Assessment and Plan Assessment and plan: --Left upper extremity swelling; possible IV infiltration Elevate the limb, DC IV fluids, left upper extremity venous Doppler to rule out DVT --Oropharngeal dysphagia; s/p Laparoscopic PEG placement Started on tube feeds, unable to tolerate, reduce flow rate to 20 mL per hour increase as tolerated, significant to feed residuals Dr. 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 --DEVIN, likely vasomotor nephropathy, mild improvement Nephrology following, gentle hydration, avoid nephrotoxins --Chronic left hydronephrosis, atrophic left kidney Extensively evaluated by urology during previous admission --Hyperglycemia/type 2 diabetes mellitus Accu-Chek sliding scale coverage and ADA diet, insulin as needed --Acute metabolic encephalopathy; back to baseline mentally alert and awake likely multifactorial.Head CT scan on 05/12/18 neg --Hypokalemia; resolved --Hypernatremia; IVF changed to D/W, will monitor --Severe protein calorie malnutrition PEG feeds per protocol,nutrition supplements --H/O CVA with right-sided hemiparesis, supportive care --Chronic urinary retention; urology rec, cont durán catheter --Physical deconditioning; PT/OT , recommend acute/subacute rehabilitation Patient's family refused, --Discharge planning; home with home health as requested by family Medically stable --DVT prophylaxis with SCD No Pharmacologic anticoagulation due to chronic anemia with high risk for bleed Plan of care is reviewed with the patient daughter and at the bedside, addressed their questions and concerns History Interval history: Patient seen and examined medical records reviewed, patient's son is at the bedside Nurse reports that patient's left upper extremity swollen diffusely Had an IV placed yesterday by diabetes Also has significant tube feed residuals Patient is chronically ill-looking cachectic Sleeping, easily awakens Vital signs reviewed Hospitalist Physical - Constitutional Vitals: Temp Pulse Resp BP Pulse Ox 98.5 F 134 H 22 131/72 96 05/28/18 07:27 05/28/18 01:13 05/28/18 07:27 05/28/18 07:27 05/28/18 01:13 General appearance: Present: no acute distress, well-nourished, obese - EENT Eyes: Present: PERRL, EOM intact - Neck Neck: Present: supple, normal ROM - Respiratory Respiratory effort: normal Respiratory: bilateral: diminished, negative: rales, rhonchi, wheezing - Cardiovascular Rhythm: regular Heart Sounds: Present: S1 & S2 - Extremities Extremities: abnormal (left upper extremity diffusely swollen/ ? IV i nfiltration) Extremity abnormal: edema - Abdominal General gastrointestinal: soft, non-tender, non-distended, normal bowel sounds - Integumentary Integumentary: Present: clear, warm - Psychiatric Psychiatric: appropriate mood/affect, cooperative - Neurologic Neurologic: CNII-XII intact, moves all extremities Results - Labs CBC & Chem 7: 05/27/18 14:35 05/29/18 05:13 Labs: Laboratory Last Values WBC 8.9 K/mm3 (4.5-11.0) 05/27/18 14:35 RBC 3.48 M/mm3 (3.65-5.03) L 05/27/18 14:35 Hgb 8.2 gm/dl (11.8-15.2) L 05/27/18 14:35 Hct 26.3 % (35.5-45.6) L 05/27/18 14:35 MCV 76 fl (84-94) L 05/27/18 14:35 MCH 24 pg (28-32) L 05/27/18 14:35 MCHC 31 % (32-34) L 05/27/18 14:35 RDW 26.0 % (13.2-15.2) H 05/27/18 14:35 Plt Count 149 K/mm3 (140-440) 05/27/18 14:35 Lymph % (Auto) Clinical Quality Manager 05/24/18 10:59 [place] % (Auto) Clinical Quality Manager 05/24/18 10:59 Eos % (Auto) Clinical Quality Manager 05/24/18 10:59 Baso % (Auto) Clinical Quality Manager 05/24/18 10:59 Lymph # Clinical Quality Manager 05/24/18 10:59 [place] # Clinical Quality Manager 05/24/18 10:59 Eos # Clinical Quality Manager 05/24/18 10:59 Baso # Clinical Quality Manager 05/24/18 10:59 Add Manual Diff Complete 05/27/18 14:35 Total Counted 100 05/27/18 14:35 Seg Neutrophils % Clinical Quality Manager 05/24/18 10:59 Seg Neuts % (Manual) 90.0 % (40.0-70.0) H 05/27/18 14:35 Band Neutrophils % 0 % 05/27/18 14:35 Lymphocytes % (Manual) 4.0 % (13.4-35.0) L 05/27/18 14:35 Reactive Lymphs % (Man) 0 % 05/27/18 14:35 Monocytes % (Manual) 4.0 % (0.0-7.3) 05/27/18 14:35 Eosinophils % (Manual) 2.0 % (0.0-4.3) 05/27/18 14:35 Basophils % (Manual) 0 % (0.0-1.8) 05/27/18 14:35 Metamyelocytes % 0 % 05/27/18 14:35 Myelocytes % 0 % 05/27/18 14:35 Promyelocytes % 0 % 05/27/18 14:35 Blast Cells % 0 % 05/27/18 14:35 Nucleated RBC % 1.0 % (0.0-0.9) H 05/27/18 14:35 Seg Neutrophils # Clinical Quality Manager 05/24/18 10:59 Seg Neutrophils # Man 8.0 K/mm3 (1.8-7.7) H 05/27/18 14:35 Band Neutrophils # 0.0 K/mm3 05/27/18 14:35 Lymphocytes # (Manual) 0.4 K/mm3 (1.2-5.4) L 05/27/18 14:35 Abs React Lymphs (Man) 0.0 K/mm3 05/27/18 14:35 Monocytes # (Manual) 0.4 K/mm3 (0.0-0.8) 05/27/18 14:35 Eosinophils # (Manual) 0.2 K/mm3 (0.0-0.4) 05/27/18 14:35 Basophils # (Manual) 0.0 K/mm3 (0.0-0.1) 05/27/18 14:35 Metamyelocytes # 0.0 K/mm3 05/27/18 14:35 Myelocytes # 0.0 K/mm3 05/27/18 14:35 Promyelocytes # 0.0 K/mm3 05/27/18 14:35 Blast Cells # 0.0 K/mm3 05/27/18 14:35 WBC Morphology Not Reportable 05/27/18 14:35 Hypersegmented Neuts Not Reportable 05/27/18 14:35 Hyposegmented Neuts Not Reportable 05/27/18 14:35 Hypogranular Neuts Not Reportable 05/27/18 14:35 Smudge Cells Not Reportable 05/27/18 14:35 Toxic Granulation Not Reportable 05/27/18 14:35 Toxic Vacuolation Not Reportable 05/27/18 14:35 Dohle Bodies Not Reportable 05/27/18 14:35 Pelger-Huet Anomaly Not Reportable 05/27/18 14:35 Alba Rods Not Reportable 05/27/18 14:35 Platelet Estimate Consistent w auto 05/27/18 14:35 Clumped Platelets Not Reportable 05/27/18 14:35 Plt Clumps, EDTA Not Reportable 05/27/18 14:35 Large Platelets Not Reportable 05/27/18 14:35 Giant Platelets Not Reportable 05/27/18 14:35 Platelet Satelliting Not Reportable 05/27/18 14:35 Plt Morphology Comment Not Reportable 05/27/18 14:35 RBC Morphology Not Reportable 05/27/18 14:35 Dimorphic RBCs Not Reportable 05/27/18 14:35 Polychromasia Not Reportable 05/27/18 14:35 Hypochromasia 1+ 05/27/18 14:35 Poikilocytosis Not Reportable 05/27/18 14:35 Anisocytosis 1+ 05/27/18 14:35 Microcytosis Not Reportable 05/27/18 14:35 Macrocytosis Not Reportable 05/27/18 14:35 Spherocytes Not Reportable 05/27/18 14:35 Pappenheimer Bodies Not Reportable 05/27/18 14:35 Sickle Cells Not Reportable 05/27/18 14:35 Target Cells 1+ 05/27/18 14:35 Tear Drop Cells Not Reportable 05/27/18 14:35 Ovalocytes Not Reportable 05/27/18 14:35 Helmet Cells Not Reportable 05/27/18 14:35 [place]cc[place] Bodies Not Reportable 05/27/18 14:35 [place] Rings Not Reportable 05/27/18 14:35 Jazmin Cells Not Reportable 05/27/18 14:35 Bite Cells Not Reportable 05/27/18 14:35 Crenated Cell Not Reportable 05/27/18 14:35 Elliptocytes Not Reportable 05/27/18 14:35 Acanthocytes (Spur) Not Reportable 05/27/18 14:35 Rouleaux Not Reportable 05/27/18 14:35 Hemoglobin C Crystals Not Reportable 05/27/18 14:35 Schistocytes Not Reportable 05/27/18 14:35 Malaria parasites Not Reportable 05/27/18 14:35 James Bodies Not Reportable 05/27/18 14:35 Hem Pathologist Commnt No 05/27/18 14:35 PT 16.4 Sec. (12.2-14.9) H 05/26/18 05:15 INR 1.24 (0.87-1.13) H 05/26/18 05:15 APTT 30.3 Sec. (24.2-36.6) 05/07/18 10:37 POC ABG pH 7.372 (7.35-7.45) 05/14/18 10:36 POC ABG pCO2 31.8 (35-45) L 05/14/18 10:36 POC ABG pO2 83 (80-105) 05/14/18 10:36 POC ABG HCO3 18.5 05/14/18 10:36 POC ABG Total CO2 19 05/14/18 10:36 POC ABG O2 Sat 96 05/14/18 10:36 POC ABG Base Excess -7 05/14/18 10:36 FiO2 21 % 05/14/18 10:36 Sodium 147 mmol/L (137-145) H 05/28/18 04:49 Potassium 4.0 mmol/L (3.6-5.0) 05/28/18 04:49 Chloride 117.1 mmol/L (98-107) H 05/28/18 04:49 Carbon Dioxide 21 mmol/L (22-30) L 05/28/18 04:49 Anion Gap 13 mmol/L 05/28/18 04:49 BUN 43 mg/dL (9-20) H 05/28/18 04:49 Creatinine 2.2 mg/dL (0.8-1.5) H 05/28/18 04:49 Estimated GFR 35 ml/min 05/28/18 04:49 BUN/Creatinine Ratio 20 % 05/28/18 04:49 Glucose 174 mg/dL (75-100) H 05/28/18 04:49 POC Glucose 241 (70-105) H 05/28/18 06:28 Hemoglobin A1c 7.6 % (4-6) H 05/08/18 03:15 Osmolality 316 Mosm/kg 05/19/18 01:19 Lactic Acid 1.60 mmol/L (0.7-2.0) 05/07/18 13:21 Uric Acid 9.0 mg/dL (3.5-7.6) H 05/19/18 01:19 Calcium 7.0 mg/dL (8.4-10.2) L 05/28/18 04:49 Phosphorus 3.30 mg/dL (2.5-4.5) 05/27/18 14:35 Magnesium 1.90 mg/dL (1.7-2.3) 05/27/18 14:35 Total Bilirubin 0.20 mg/dL (0.1-1.2) 05/23/18 05:03 AST 10 units/L (5-40) 05/23/18 05:03 ALT < 5 units/L (7-56) L 05/23/18 05:03 Alkaline Phosphatase 50 units/L (35-129) 05/23/18 05:03 Total Protein 4.2 g/dL (6.3-8.2) L 05/23/18 05:03 Albumin 0.9 g/dL (3.9-5) L 05/23/18 05:03 Albumin/Globulin Ratio 0.3 % 05/23/18 05:03 Urine Color [place]ora (Yellow) 05/24/18 Unknown Urine Turbidity Turbid (Clear) 05/24/18 Unknown Urine pH 5.0 (5.0-7.0) 05/24/18 Unknown Ur Specific [place] 1.019 (1.003-1.030) 05/24/18 Unknown Urine Protein 100 mg/dl mg/dL (Negative) 05/24/18 Unknown Urine Glucose (UA) Neg mg/dL (Negative) 05/24/18 Unknown Urine Ketones Neg mg/dL (Negative) 05/24/18 Unknown Urine Blood Mod (Negative) 05/24/18 Unknown Urine Nitrite Neg (Negative) 05/24/18 Unknown Urine Bilirubin Neg (Negative) 05/24/18 Unknown Urine Urobilinogen < 2.0 mg/dL (<2.0) 05/24/18 Unknown Ur Leukocyte Esterase Lg (Negative) 05/24/18 Unknown Urine WBC (Auto) > 182.0 /HPF (0.0-6.0) H 05/24/18 Unknown Urine RBC (Auto) > 182.0 /HPF (0.0-6.0) 05/24/18 Unknown U Epithel Cells (Auto) < 1.0 /HPF (0-13.0) 05/07/18 12:20 Urine Bacteria (Auto) 1+ /HPF (Negative) 05/07/18 12:20 Urine Mucus Few /HPF 05/07/18 12:20 Urine Yeast (Budding) 3+ /HPF 05/24/18 Unknown Immunofix Electrophor see below 05/19/18 01:19 Influenza A (Rapid) Negative (Negative) 05/12/18 Unknown Influenza A (RT-PCR) Negative (Negative) 05/12/18 Unknown Influenza B (Rapid) Negative (Negative) 05/12/18 Unknown Influenza B (RT-PCR) Negative (Negative) 05/12/18 Unknown Blood Type O POSITIVE 05/22/18 10:08 Antibody Screen Negative 05/22/18 10:08 Crossmatch See Detail 05/22/18 10:08 Nutrition/Malnutrition Assess - Dietary Evaluation Nutrition/Malnutrition Findings: Nutrition Notes Start: 05/08/18 09:32 Freq: Status: Active Protocol: Document 05/26/18 15:55 [facility] (Rec: 05/26/18 16:19 [facility] SRW- [id number]) Nutrition Notes Initial or Follow up Reassessment Current Diagnosis Acute Kidney Injury,Diabetes Other Pertinent Diagnosis Dysphagia, anemia Current Diet TF - Glucerna 1.2 at 65ml/hr Labs/Tests Na 149 BUN 43 Cr 2.2 Pertinent Medications Ferrous sulfate, calcium carbonate Height 5 ft 6 in Weight 99.3 kg [place] Body Weight (kg) 64.54 BMI 35.3 Subjective/Other Information Pt had PEG placed today. Per RNMD wants to restart TF at 16:00 today. Burn Absent Trauma Absent #1 Nutrition Diagnosis Inadequate oral intake Diagnosis Progress(for reassessment Continues documentation) Is patient on ventilator? No Is Patient Ambulatory and/or Out of Bed No REE-([facility]-confined to bed) 1981.392 Kcal/Kg value to use for calculation 17 Approximate Energy Requirements Using 1688 kcal/Kg Calculation Used for Recommendations [facility] Additional Notes Pro needs 1-1.2g/kg adjBW: 82- 98g/day Fluid needs 1ml/kcal Nutrition Intervention Nutrition Support: Restart Glucerna 1.2 at 60ml/ hr. Provide 100ml water flush q4h. Kcal 1,728 Protein (gm) 86 Fluid (mL) 1,159 Fiber (gm) 23 Goal #1 TF tolerance Goal #2 TF to meet at least 75% energy and pro needs Follow-Up By: 05/28/18 Additional Comments F/U: TF restart/tolerance
--- NOTE | 2018-05-28 09:06 | Progress Note ---
Assessment and Plan Assessment and plan: --Left upper extremity swelling; possible IV infiltration Elevate the limb, DC IV fluids, left upper extremity venous Doppler to rule out DVT --Oropharngeal dysphagia; s/p Laparoscopic PEG placement Started on tube feeds, unable to tolerate, reduce flow rate to 20 mL per hour increase as tolerated, significant to feed residuals Dr. 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 --DEVIN, likely vasomotor nephropathy, mild improvement Nephrology following, gentle hydration, avoid nephrotoxins --Chronic left hydronephrosis, atrophic left kidney Extensively evaluated by urology during previous admission --Hyperglycemia/type 2 diabetes mellitus Accu-Chek sliding scale coverage and ADA diet, insulin as needed --Acute metabolic encephalopathy; back to baseline mentally alert and awake likely multifactorial.Head CT scan on 05/12/18 neg --Hypokalemia; resolved --Hypernatremia; IVF changed to D/W, will monitor --Severe protein calorie malnutrition PEG feeds per protocol,nutrition supplements --H/O CVA with right-sided hemiparesis, supportive care --Chronic urinary retention; urology rec, cont durán catheter --Physical deconditioning; PT/OT , recommend acute/subacute rehabilitation Patient's family refused, --Discharge planning; home with home health as requested by family Medically stable --DVT prophylaxis with SCD No Pharmacologic anticoagulation due to chronic anemia with high risk for bleed Plan of care is reviewed with the patient daughter and at the bedside, addressed their questions and concerns History Interval history: Patient seen and examined medical records reviewed No new events reported by the nursing staff Left upper extremity swelling noted IV line removed, advised to elevate the limb Patient is receiving tube feedings however held Because of high residuals Patient is comfortable Vital signs noted Hospitalist Physical - Constitutional Vitals: Temp Pulse Resp BP Pulse Ox 98.5 F 134 H 22 131/72 96 05/28/18 07:27 05/28/18 01:13 05/28/18 07:27 05/28/18 07:27 05/28/18 01:13 General appearance: Present: no acute distress, well-nourished, obese - EENT Eyes: Present: PERRL, EOM intact - Neck Neck: Present: supple, normal ROM - Respiratory Respiratory effort: normal Respiratory: bilateral: diminished, negative: rales, rhonchi, wheezing - Cardiovascular Rhythm: regular Heart Sounds: Present: S1 & S2 - Extremities Extremities: no ischemia, No edema - Abdominal General gastrointestinal: soft, non-tender, non-distended, other (PEG tube in place) - Integumentary Integumentary: Present: clear, warm - Psychiatric Psychiatric: appropriate mood/affect, cooperative - Neurologic Neurologic: CNII-XII intact, moves all extremities Results - Labs CBC & Chem 7: 05/27/18 14:35 05/29/18 05:13 Labs: Laboratory Last Values WBC 8.9 K/mm3 (4.5-11.0) 05/27/18 14:35 RBC 3.48 M/mm3 (3.65-5.03) L 05/27/18 14:35 Hgb 8.2 gm/dl (11.8-15.2) L 05/27/18 14:35 Hct 26.3 % (35.5-45.6) L 05/27/18 14:35 MCV 76 fl (84-94) L 05/27/18 14:35 MCH 24 pg (28-32) L 05/27/18 14:35 MCHC 31 % (32-34) L 05/27/18 14:35 RDW 26.0 % (13.2-15.2) H 05/27/18 14:35 Plt Count 149 K/mm3 (140-440) 05/27/18 14:35 Lymph % (Auto) Engine Pilot 05/24/18 10:59 [place] % (Auto) Engine Pilot 05/24/18 10:59 Eos % (Auto) Engine Pilot 05/24/18 10:59 Baso % (Auto) Engine Pilot 05/24/18 10:59 Lymph # Engine Pilot 05/24/18 10:59 [place] # Engine Pilot 05/24/18 10:59 Eos # Engine Pilot 05/24/18 10:59 Baso # Engine Pilot 05/24/18 10:59 Add Manual Diff Complete 05/27/18 14:35 Total Counted 100 05/27/18 14:35 Seg Neutrophils % Engine Pilot 05/24/18 10:59 Seg Neuts % (Manual) 90.0 % (40.0-70.0) H 05/27/18 14:35 Band Neutrophils % 0 % 05/27/18 14:35 Lymphocytes % (Manual) 4.0 % (13.4-35.0) L 05/27/18 14:35 Reactive Lymphs % (Man) 0 % 05/27/18 14:35 Monocytes % (Manual) 4.0 % (0.0-7.3) 05/27/18 14:35 Eosinophils % (Manual) 2.0 % (0.0-4.3) 05/27/18 14:35 Basophils % (Manual) 0 % (0.0-1.8) 05/27/18 14:35 Metamyelocytes % 0 % 05/27/18 14:35 Myelocytes % 0 % 05/27/18 14:35 Promyelocytes % 0 % 05/27/18 14:35 Blast Cells % 0 % 05/27/18 14:35 Nucleated RBC % 1.0 % (0.0-0.9) H 05/27/18 14:35 Seg Neutrophils # Engine Pilot 05/24/18 10:59 Seg Neutrophils # Man 8.0 K/mm3 (1.8-7.7) H 05/27/18 14:35 Band Neutrophils # 0.0 K/mm3 05/27/18 14:35 Lymphocytes # (Manual) 0.4 K/mm3 (1.2-5.4) L 05/27/18 14:35 Abs React Lymphs (Man) 0.0 K/mm3 05/27/18 14:35 Monocytes # (Manual) 0.4 K/mm3 (0.0-0.8) 05/27/18 14:35 Eosinophils # (Manual) 0.2 K/mm3 (0.0-0.4) 05/27/18 14:35 Basophils # (Manual) 0.0 K/mm3 (0.0-0.1) 05/27/18 14:35 Metamyelocytes # 0.0 K/mm3 05/27/18 14:35 Myelocytes # 0.0 K/mm3 05/27/18 14:35 Promyelocytes # 0.0 K/mm3 05/27/18 14:35 Blast Cells # 0.0 K/mm3 05/27/18 14:35 WBC Morphology Not Reportable 05/27/18 14:35 Hypersegmented Neuts Not Reportable 05/27/18 14:35 Hyposegmented Neuts Not Reportable 05/27/18 14:35 Hypogranular Neuts Not Reportable 05/27/18 14:35 Smudge Cells Not Reportable 05/27/18 14:35 Toxic Granulation Not Reportable 05/27/18 14:35 Toxic Vacuolation Not Reportable 05/27/18 14:35 Dohle Bodies Not Reportable 05/27/18 14:35 Pelger-Huet Anomaly Not Reportable 05/27/18 14:35 Alba Rods Not Reportable 05/27/18 14:35 Platelet Estimate Consistent w auto 05/27/18 14:35 Clumped Platelets Not Reportable 05/27/18 14:35 Plt Clumps, EDTA Not Reportable 05/27/18 14:35 Large Platelets Not Reportable 05/27/18 14:35 Giant Platelets Not Reportable 05/27/18 14:35 Platelet Satelliting Not Reportable 05/27/18 14:35 Plt Morphology Comment Not Reportable 05/27/18 14:35 RBC Morphology Not Reportable 05/27/18 14:35 Dimorphic RBCs Not Reportable 05/27/18 14:35 Polychromasia Not Reportable 05/27/18 14:35 Hypochromasia 1+ 05/27/18 14:35 Poikilocytosis Not Reportable 05/27/18 14:35 Anisocytosis 1+ 05/27/18 14:35 Microcytosis Not Reportable 05/27/18 14:35 Macrocytosis Not Reportable 05/27/18 14:35 Spherocytes Not Reportable 05/27/18 14:35 Pappenheimer Bodies Not Reportable 05/27/18 14:35 Sickle Cells Not Reportable 05/27/18 14:35 Target Cells 1+ 05/27/18 14:35 Tear Drop Cells Not Reportable 05/27/18 14:35 Ovalocytes Not Reportable 05/27/18 14:35 Helmet Cells Not Reportable 05/27/18 14:35 [place]cc[place] Bodies Not Reportable 05/27/18 14:35 [place] Rings Not Reportable 05/27/18 14:35 Jazmin Cells Not Reportable 05/27/18 14:35 Bite Cells Not Reportable 05/27/18 14:35 Crenated Cell Not Reportable 05/27/18 14:35 Elliptocytes Not Reportable 05/27/18 14:35 Acanthocytes (Spur) Not Reportable 05/27/18 14:35 Rouleaux Not Reportable 05/27/18 14:35 Hemoglobin C Crystals Not Reportable 05/27/18 14:35 Schistocytes Not Reportable 05/27/18 14:35 Malaria parasites Not Reportable 05/27/18 14:35 James Bodies Not Reportable 05/27/18 14:35 Hem Pathologist Commnt No 05/27/18 14:35 PT 16.4 Sec. (12.2-14.9) H 05/26/18 05:15 INR 1.24 (0.87-1.13) H 05/26/18 05:15 APTT 30.3 Sec. (24.2-36.6) 05/07/18 10:37 POC ABG pH 7.372 (7.35-7.45) 05/14/18 10:36 POC ABG pCO2 31.8 (35-45) L 05/14/18 10:36 POC ABG pO2 83 (80-105) 05/14/18 10:36 POC ABG HCO3 18.5 05/14/18 10:36 POC ABG Total CO2 19 05/14/18 10:36 POC ABG O2 Sat 96 05/14/18 10:36 POC ABG Base Excess -7 05/14/18 10:36 FiO2 21 % 05/14/18 10:36 Sodium 147 mmol/L (137-145) H 05/28/18 04:49 Potassium 4.0 mmol/L (3.6-5.0) 05/28/18 04:49 Chloride 117.1 mmol/L (98-107) H 05/28/18 04:49 Carbon Dioxide 21 mmol/L (22-30) L 05/28/18 04:49 Anion Gap 13 mmol/L 05/28/18 04:49 BUN 43 mg/dL (9-20) H 05/28/18 04:49 Creatinine 2.2 mg/dL (0.8-1.5) H 05/28/18 04:49 Estimated GFR 35 ml/min 05/28/18 04:49 BUN/Creatinine Ratio 20 % 05/28/18 04:49 Glucose 174 mg/dL (75-100) H 05/28/18 04:49 POC Glucose 241 (70-105) H 05/28/18 06:28 Hemoglobin A1c 7.6 % (4-6) H 05/08/18 03:15 Osmolality 316 Mosm/kg 05/19/18 01:19 Lactic Acid 1.60 mmol/L (0.7-2.0) 05/07/18 13:21 Uric Acid 9.0 mg/dL (3.5-7.6) H 05/19/18 01:19 Calcium 7.0 mg/dL (8.4-10.2) L 05/28/18 04:49 Phosphorus 3.30 mg/dL (2.5-4.5) 05/27/18 14:35 Magnesium 1.90 mg/dL (1.7-2.3) 05/27/18 14:35 Total Bilirubin 0.20 mg/dL (0.1-1.2) 05/23/18 05:03 AST 10 units/L (5-40) 05/23/18 05:03 ALT < 5 units/L (7-56) L 05/23/18 05:03 Alkaline Phosphatase 50 units/L (35-129) 05/23/18 05:03 Total Protein 4.2 g/dL (6.3-8.2) L 05/23/18 05:03 Albumin 0.9 g/dL (3.9-5) L 05/23/18 05:03 Albumin/Globulin Ratio 0.3 % 05/23/18 05:03 Urine Color [place] (Yellow) 05/24/18 Unknown Urine Turbidity Turbid (Clear) 05/24/18 Unknown Urine pH 5.0 (5.0-7.0) 05/24/18 Unknown Ur Specific [place] 1.019 (1.003-1.030) 05/24/18 Unknown Urine Protein 100 mg/dl mg/dL (Negative) 05/24/18 Unknown Urine Glucose (UA) Neg mg/dL (Negative) 05/24/18 Unknown Urine Ketones Neg mg/dL (Negative) 05/24/18 Unknown Urine Blood Mod (Negative) 05/24/18 Unknown Urine Nitrite Neg (Negative) 05/24/18 Unknown Urine Bilirubin Neg (Negative) 05/24/18 Unknown Urine Urobilinogen < 2.0 mg/dL (<2.0) 05/24/18 Unknown Ur Leukocyte Esterase Lg (Negative) 05/24/18 Unknown Urine WBC (Auto) > 182.0 /HPF (0.0-6.0) H 05/24/18 Unknown Urine RBC (Auto) > 182.0 /HPF (0.0-6.0) 05/24/18 Unknown U Epithel Cells (Auto) < 1.0 /HPF (0-13.0) 05/07/18 12:20 Urine Bacteria (Auto) 1+ /HPF (Negative) 05/07/18 12:20 Urine Mucus Few /HPF 05/07/18 12:20 Urine Yeast (Budding) 3+ /HPF 05/24/18 Unknown Immunofix Electrophor see below 05/19/18 01:19 Influenza A (Rapid) Negative (Negative) 05/12/18 Unknown Influenza A (RT-PCR) Negative (Negative) 05/12/18 Unknown Influenza B (Rapid) Negative (Negative) 05/12/18 Unknown Influenza B (RT-PCR) Negative (Negative) 05/12/18 Unknown Blood Type O POSITIVE 05/22/18 10:08 Antibody Screen Negative 05/22/18 10:08 Crossmatch See Detail 05/22/18 10:08 Nutrition/Malnutrition Assess - Dietary Evaluation Nutrition/Malnutrition Findings: Nutrition Notes Start: 05/08/18 09:32 Freq: Status: Active Protocol: Document 05/26/18 15:55 [facility] (Rec: 05/26/18 16:19 [facility] SRW- [id number]) Nutrition Notes Initial or Follow up Reassessment Current Diagnosis Acute Kidney Injury,Diabetes Other Pertinent Diagnosis Dysphagia, anemia Current Diet TF - Glucerna 1.2 at 65ml/hr Labs/Tests Na 149 BUN 43 Cr 2.2 Pertinent Medications Ferrous sulfate, calcium carbonate Height 5 ft 6 in Weight 99.3 kg [place] Body Weight (kg) 64.54 BMI 35.3 Subjective/Other Information Pt had PEG placed today. Per RNMD wants to restart TF at 16:00 today. Burn Absent Trauma Absent #1 Nutrition Diagnosis Inadequate oral intake Diagnosis Progress(for reassessment Continues documentation) Is patient on ventilator? No Is Patient Ambulatory and/or Out of Bed No REE-([facility]-confined to bed) 1981.392 Kcal/Kg value to use for calculation 17 Approximate Energy Requirements Using 1688 kcal/Kg Calculation Used for Recommendations [facility] Additional Notes Pro needs 1-1.2g/kg adjBW: 82- 98g/day Fluid needs 1ml/kcal Nutrition Intervention Nutrition Support: Restart Glucerna 1.2 at 60ml/ hr. Provide 100ml water flush q4h. Kcal 1,728 Protein (gm) 86 Fluid (mL) 1,159 Fiber (gm) 23 Goal #1 TF tolerance Goal #2 TF to meet at least 75% energy and pro needs Follow-Up By: 05/28/18 Additional Comments F/U: TF restart/tolerance
--- NOTE | 2018-05-28 09:40 | Event Note ---
Date: 05/28/18 Pt down at US. Spoke with nurse. Patient only had 60cc residuals this AM. There was some confusion on what amount is considered to be abnormal. I explained to them what the normal amount of residual is that would concern us. They may continue to increase the tube feeds as tolerated. He appears to be doing very well based on the nurses notes from the last 24 hours. Reglan appears to be working. It is currently scheduled for only a few days. If the residuals increase significantly after the reglan stops, then he may require one of the followin) Scheduled or prn Reglan 2) scheduled erythromycin (promotility effect) 3) Eventual change out of PEG to G-J tube by interventional radiology. Would like to wait at least 6 weeks for tract to mature. Please call with questions.
--- NOTE | 2018-05-28 09:43 | Ultrasound Report ---
ULTRASOUND RENAL BILATERAL HISTORY: Followup hydronephrosis. TECHNIQUE: transabdominal ultrasound with color Doppler interrogation. FINDINGS: Left hydronephrosis has essentially resolved since 04/12/18 renal ultrasound. The right kidney measures 11.1 cm. The left kidney is slightly atrophic measuring 8.4 cm. The renal cortex is echogenic consistent with nonspecific renal parenchymal disease. No focal renal lesion is identified. The bladder is empty and contains a Martinez catheter. Trace abdominal ascites is noted. IMPRESSION: Resolution or near resolution of the left hydronephrosis since 04/12 assessment team. Nonspecific renal parenchymal disease. Slightly atrophic left kidney.
[2018-05-28] MEDS: LOVENOX SUB-Q SCH (11:11)
[2018-05-28] MEDS: CALCIUM CARBONATE FEEDTUBE SCH ×2 (11:12→22:18)
[2018-05-28] MEDS: REGLAN FEEDTUBE SCH ×4 (11:12→22:19)
[2018-05-28] MEDS: CARAFATE FEEDTUBE SCH ×2 (11:12→22:19)
[2018-05-28] MEDS: FERROUS SULFATE FEEDTUBE SCH ×2 (11:12→22:19)
[2018-05-28] MEDS: PREVACID SOLUTAB FEEDTUBE SCH (11:12)
[2018-05-28] MEDS: SODIUM CHLORIDE FLUSH SYRINGE 10 ML IV SCH ×2 (11:13→22:20)
--- NOTE | 2018-05-28 14:15 | Vascular Lab Report ---
PROCEDURE: VL VENOUS DUPLEX UE LT TECHNIQUE: The routine technique for an ultrasound was performed per protocol from this institution HISTORY: swelling/pain /r/o DVT COMPARISONS: No prior study FINDINGS: Technologist reports technically limited study secondary to patient's underlying condition/uncooperat iveness Or a prominent diffuse soft tissue edema without discrete mass or collection the medical detail representative image is submitted There is no definite deep venous thrombosis demonstrated on this technically compromised exam Superficial venous thrombosis noted in the left cephalic vein IMPRESSION: Technologist reports technically limited study secondary to patient's underlying condition/uncooperat iveness Or a prominent diffuse soft tissue edema without discrete mass or collection the medical detail representative image is submitted There is no definite deep venous thrombosis demonstrated on this technically compromised exam Superficial venous thrombosis noted in the left cephalic vein. This document is electronically signed by Hayden Carrera MD., May 28 2018 02:13:23 PM ET
[2018-05-28] MEDS: PRAVACHOL FEEDTUBE SCH (22:19)
[2018-05-29] MEDS ORDERED: LASIX PO ONE
[2018-05-29] MEDS: HumaLOG SUB-Q SCH ×4 (00:59→20:25)
--- NOTE | 2018-05-29 08:17 | Event Note ---
Date: 05/29/18 Reviewed notes from last night and spoke to day nurse. Tube feeds continue to be held for low residuals. This is compromising his nutritional status. Will change to bolus feeds to alleviate this problem.
[2018-05-29] MEDS: REGLAN FEEDTUBE SCH ×4 (09:35→21:49)
[2018-05-29] MEDS: TYLENOL FEEDTUBE PRN (09:35)
[2018-05-29] MEDS ORDERED: PANCREAZE DR 10,500 UNIT FEEDTUBE PRN (11:28)
[2018-05-29] MEDS ORDERED: SIMPLE SYRUP FEEDTUBE PRN ×2 (11:28)
[2018-05-29] MEDS ORDERED: SODIUM BICARBONATE FEEDTUBE PRN (11:28)
[2018-05-29] MEDS: LOVENOX SUB-Q SCH (12:36)
[2018-05-29] MEDS: CALCIUM CARBONATE FEEDTUBE SCH ×2 (12:37→21:50)
[2018-05-29] MEDS: CARAFATE FEEDTUBE SCH ×2 (12:37→21:49)
[2018-05-29] MEDS: FERROUS SULFATE FEEDTUBE SCH ×2 (12:37→21:50)
[2018-05-29] MEDS: PREVACID SOLUTAB FEEDTUBE SCH (12:37)
--- NOTE | 2018-05-29 13:38 | Progress Note ---
Assessment and Plan - Patient Problems (1) Hypernatremia Current Visit: Yes Status: Acute Plan to address problem: acute hypernatremia : Resolved Sodium is 143 - 2/2 free water deficit - Received freewater flushes - Has lost IV access due to severe edema - Recheck RFP . (2) Acute renal insufficiency Current Visit: No Status: Acute Plan to address problem: Acute kidney injury : Baseline creatinine 1.0-1.4mg/dl current creatinine is : 2.0. Mg/dl I reviewed CT with left hydronephrosis involving proximal third of ureter Reviewed repeat renal US which shows resolution of obstruction etiology of DEVIN is likely 2/2 obstructive uropathy with ATN Durán was placed by urology per nursing staff Has anasarca and third spacing of fluid Lasix 80 mg once daily continue durán in place. (3) Anemia Current Visit: Yes Status: Acute Qualifiers: Anemia type: due to chronic kidney disease Plan to address problem: Moderate Anemia :worsening Hb: 10g/dl-- 8.2g/dl monitor for occult blood loss Monitor CBC. (4) Metabolic acidosis Current Visit: Yes Status: Acute Plan to address problem: Metabolic acidosis 2/2 DEVIN worsening - Hco3 : 19 - Will add bicarbonate 1300 mg twice a day Subjective Principal diagnosis: PEG Interval history: 78 year old gentleman with medical history signficant for HTN , urinary retention ,sepsis admitted with fever and weakness Patient seen today at bedside continuous tube feeds have been stopped due to high residuals now on bolus feeds Urine output is improving, lower extremity edema is also improved Plan of care discussed with the patient Objective - Vital Signs Vital signs: Vital Signs - 12hr 05/29/18 05/29/18 01:49 07:45 Temperature 98.5 F 99.7 F H Pulse Rate 114 H Respiratory 20 18 Rate Blood Pressure 102/69 124/70 O2 Sat by Pulse 96 Oximetry - General Appearance General appearance: obese, chronically ill EENT: ATNC, PERRL Neck: no JVD Respiratory: Present: Decreased Breath Sounds Cardiology: regular, S1S2 Gastrointestinal: normal, normoactive bowel sounds Integumentary: no rash (i) Neurologic: confused, upper extremity weakness, facial droop Musculoskeletal: deferred Psychiatric: mood/affect appropriate - Lab 05/27/18 14:35 05/29/18 05:13 Most recent lab results Calcium 7.0 mg/dL (8.4-10.2) L 05/29/18 05:13 Phosphorus 3.30 mg/dL (2.5-4.5) 05/27/18 14:35 Magnesium 1.90 mg/dL (1.7-2.3) 05/27/18 14:35 - Imaging Other: other (I reviewed the ultrasound with improvement in hydronephrosis) Medications & Allergies - Medications Allergies/Adverse Reactions: Allergies Penicillins Allergy (Verified 04/11/18 16:00) Unknown Home Medications: Home Medications Medication Instructions Recorded Confirmed Last Taken Type Clopidogrel Bisulfate [Plavix] 75 mg PO DAILY #0 09/21/17 05/07/18 04/24/18 12:00 History Famotidine [Pepcid] 20 mg PO DAILY #0 09/21/17 05/07/18 04/24/18 History 20mg Simvastatin 40 mg PO HS 09/21/17 05/07/18 04/24/18 08:00 History 20 mg Sucralfate [Carafate] 1 gram PO BID #0 09/21/17 05/07/18 04/24/18 12:00 History 1 gm Ferrous Sulfate [Feosol 325 MG tab] 325 mg PO BID #60 tablet 05/04/18 05/07/18 Unknown Rx Active Medications: Generic Name Dose Route Start Last Admin Trade Name Freq PRN Reason Stop Dose Admin Acetaminophen 650 mg 05/27/18 07:30 05/29/18 09:35 Tylenol FEEDTUBE 650 mg Q4H PRN Administration Pain MILD(1-3)/Fever >100.5/MACIAS Albuterol 2.5 mg 05/10/18 15:59 Proventil IH Q4HRT PRN Shortness Of Breath Lipase/Protease/Amylase 1 each 05/26/18 16:[address] 10,500 Unit FEEDTUBE PRN PRN For Clogged Feeding Tube Bisacodyl 10 mg 05/16/18 13:02 05/16/18 13:54 Dulcolax [place] 10 mg QDAY PRN Administration Constipation Calcium Carbonate/Glycine 1,250 mg 05/24/18 10:00 05/29/18 12:37 Calcium Carbonate FEEDTUBE 1,250 mg BID FREDI Administration Dextrose 50 ml 05/19/18 05:05 D50w (25gm) Syringe IV PRN PRN Hypoglycemia Enoxaparin Sodium 30 mg 05/28/18 10:00 05/29/18 12:36 Lovenox SUB-Q 30 mg QDAY FREDI Administration Ferrous Sulfate 308 mg 05/27/18 10:00 05/29/18 12:37 Ferrous Sulfate FEEDTUBE 308 mg BID FREDI Administration Furosemide 80 mg 05/29/18 13:00 Lasix PO QDAY FREDI Hydromorphone HCl 0.5 mg 05/08/18 02:22 Dilaudid IV Q3H PRN Pain , Severe (7-10) Dextrose 1,000 mls @ 150 mls/hr 05/27/18 16:00 05/28/18 02:51 D5w IV 125 mls/hr DIRECT FREDI Administration Insulin Human Lispro 0 unit 05/25/18 13:00 05/29/18 06:50 Humalog SUB-Q Not Given Q6HR [facility] Protocol Lansoprazole 30 mg 05/23/18 10:00 05/29/18 12:37 Prevacid Solutab FEEDTUBE 30 mg QDAY FREDI Administration Metoclopramide HCl 5 mg 05/27/18 11:30 05/29/18 09:35 Reglan FEEDTUBE 5 mg ACHS FREDI Administration Ondansetron HCl 4 mg 05/08/18 02:22 Zofran IV Q8H PRN Nausea And Vomiting Oxycodone/Acetaminophen 1 tab 05/27/18 07:30 Percocet 5/325 FEEDTUBE Q6H PRN Pain, Moderate (4-6) Pravastatin Sodium 80 mg 05/27/18 22:00 05/28/18 22:19 Pravachol FEEDTUBE 80 mg QHS FREDI Administration Simple Syrup 15 ml 05/26/18 16:21 Simple Syrup FEEDTUBE PRN PRN Hypoglycemia Simple Syrup 30 ml 05/28/18 08:36 Simple Syrup FEEDTUBE PRN PRN Hypoglycemia Sodium Bicarbonate 325 mg 05/26/18 16:21 Sodium Bicarbonate FEEDTUBE PRN PRN For Clogged Feeding Tube Sodium Chloride 10 ml 05/08/18 10:00 05/28/18 22:20 Sodium Chloride Flush Syringe 10 Ml IV Not Given BID FREDI Sodium Chloride 10 ml 05/08/18 02:22 05/08/18 03:56 Sodium Chloride Flush Syringe 10 Ml IV 10 ml PRN PRN Administration LINE FLUSH Sucralfate 1 gm 05/27/18 10:00 05/29/18 12:37 Carafate FEEDTUBE 1 gm BID FREDI Administration
[2018-05-29] MEDS ORDERED: SODIUM BICARBONATE PO SCH (14:00)
[2018-05-29] MEDS: SODIUM BICARBONATE PO SCH ×2 (14:31→21:50)
[2018-05-29] MEDS: LASIX PO SCH (14:32)
--- NOTE | 2018-05-29 17:28 | Progress Note ---
Assessment and Plan Assessment and plan: --Left upper extremity swelling; significantly improved Elevate the limb, venous Doppler negative for DVT, superficial thrombophlebitis --Oropharngeal dysphagia; s/p Laparoscopic PEG placement Started on tube feeds, nurse reports increased residual Dr. Ramirez recommend bolus feeds and Reglan. 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 Continuous Durán recommended by urology --DEVIN, likely vasomotor nephropathy, mild improvement Nephrology following, gentle hydration, avoid nephrotoxins --Chronic left hydronephrosis, atrophic left kidney Extensively evaluated by urology during previous admission --Hyperglycemia/type 2 diabetes mellitus Accu-Chek sliding scale coverage and ADA diet, insulin as needed --Acute metabolic encephalopathy; back to baseline mentally alert and awake likely multifactorial.Head CT scan on 05/12/18 neg --Severe protein calorie malnutrition PEG feeds per protocol,nutrition supplements --H/O CVA with right-sided hemiparesis, supportive care --Chronic urinary retention; urology rec, cont durán catheter --Physical deconditioning; PT/OT , recommend acute/subacute rehabilitation Patient's family refused, --Discharge planning; home with home health as requested by family when Medically stable --DVT prophylaxis with SCD No Pharmacologic anticoagulation due to chronic anemia with high risk for bleed --Full code Plan of care is reviewed with the patient's at the bedside History Interval history: Patient seen and examined medical records reviewed Feels better no new complaints feeds changed to bolus feeds No new events reported by the nurse No new events reported by the family Vital signs noted Hospitalist Physical - Constitutional Vitals: Temp Pulse Resp BP Pulse Ox 99.7 F H 114 H 18 124/70 96 05/29/18 07:45 05/29/18 07:45 05/29/18 07:45 05/29/18 07:45 05/29/18 07:45 General appearance: Present: no acute distress, well-nourished, obese - EENT Eyes: Present: PERRL, EOM intact - Neck Neck: Present: supple, normal ROM - Respiratory Respiratory effort: normal Respiratory: bilateral: diminished, negative: rales, rhonchi, wheezing - Cardiovascular Rhythm: regular Heart Sounds: Present: S1 & S2 - Extremities Extremities: no ischemia, No edema - Abdominal General gastrointestinal: soft, non-tender, non-distended, normal bowel sounds - Integumentary Integumentary: Present: clear, warm - Psychiatric Psychiatric: appropriate mood/affect, cooperative - Neurologic Neurologic: CNII-XII intact, moves all extremities Results - Labs CBC & Chem 7: 05/27/18 14:35 05/29/18 05:13 Labs: Laboratory Last Values WBC 8.9 K/mm3 (4.5-11.0) 05/27/18 14:35 RBC 3.48 M/mm3 (3.65-5.03) L 05/27/18 14:35 Hgb 8.2 gm/dl (11.8-15.2) L 05/27/18 14:35 Hct 26.3 % (35.5-45.6) L 05/27/18 14:35 MCV 76 fl (84-94) L 05/27/18 14:35 MCH 24 pg (28-32) L 05/27/18 14:35 MCHC 31 % (32-34) L 05/27/18 14:35 RDW 26.0 % (13.2-15.2) H 05/27/18 14:35 Plt Count 149 K/mm3 (140-440) 05/27/18 14:35 Lymph % (Auto) [employer] 05/24/18 10:59 [place] % (Auto) [employer] 05/24/18 10:59 Eos % (Auto) [employer] 05/24/18 10:59 Baso % (Auto) [employer] 05/24/18 10:59 Lymph # [employer] 05/24/18 10:59 [place] # [employer] 05/24/18 10:59 Eos # [employer] 05/24/18 10:59 Baso # [employer] 05/24/18 10:59 Add Manual Diff Complete 05/27/18 14:35 Total Counted 100 05/27/18 14:35 Seg Neutrophils % [employer] 05/24/18 10:59 Seg Neuts % (Manual) 90.0 % (40.0-70.0) H 05/27/18 14:35 Band Neutrophils % 0 % 05/27/18 14:35 Lymphocytes % (Manual) 4.0 % (13.4-35.0) L 05/27/18 14:35 Reactive Lymphs % (Man) 0 % 05/27/18 14:35 Monocytes % (Manual) 4.0 % (0.0-7.3) 05/27/18 14:35 Eosinophils % (Manual) 2.0 % (0.0-4.3) 05/27/18 14:35 Basophils % (Manual) 0 % (0.0-1.8) 05/27/18 14:35 Metamyelocytes % 0 % 05/27/18 14:35 Myelocytes % 0 % 05/27/18 14:35 Promyelocytes % 0 % 05/27/18 14:35 Blast Cells % 0 % 05/27/18 14:35 Nucleated RBC % 1.0 % (0.0-0.9) H 05/27/18 14:35 Seg Neutrophils # [employer] 05/24/18 10:59 Seg Neutrophils # Man 8.0 K/mm3 (1.8-7.7) H 05/27/18 14:35 Band Neutrophils # 0.0 K/mm3 05/27/18 14:35 Lymphocytes # (Manual) 0.4 K/mm3 (1.2-5.4) L 05/27/18 14:35 Abs React Lymphs (Man) 0.0 K/mm3 05/27/18 14:35 Monocytes # (Manual) 0.4 K/mm3 (0.0-0.8) 05/27/18 14:35 Eosinophils # (Manual) 0.2 K/mm3 (0.0-0.4) 05/27/18 14:35 Basophils # (Manual) 0.0 K/mm3 (0.0-0.1) 05/27/18 14:35 Metamyelocytes # 0.0 K/mm3 05/27/18 14:35 Myelocytes # 0.0 K/mm3 05/27/18 14:35 Promyelocytes # 0.0 K/mm3 05/27/18 14:35 Blast Cells # 0.0 K/mm3 05/27/18 14:35 WBC Morphology Not Reportable 05/27/18 14:35 Hypersegmented Neuts Not Reportable 05/27/18 14:35 Hyposegmented Neuts Not Reportable 05/27/18 14:35 Hypogranular Neuts Not Reportable 05/27/18 14:35 Smudge Cells Not Reportable 05/27/18 14:35 Toxic Granulation Not Reportable 05/27/18 14:35 Toxic Vacuolation Not Reportable 05/27/18 14:35 Dohle Bodies Not Reportable 05/27/18 14:35 Pelger-Huet Anomaly Not Reportable 05/27/18 14:35 Alba Rods Not Reportable 05/27/18 14:35 Platelet Estimate Consistent w auto 05/27/18 14:35 Clumped Platelets Not Reportable 05/27/18 14:35 Plt Clumps, EDTA Not Reportable 05/27/18 14:35 Large Platelets Not Reportable 05/27/18 14:35 Giant Platelets Not Reportable 05/27/18 14:35 Platelet Satelliting Not Reportable 05/27/18 14:35 Plt Morphology Comment Not Reportable 05/27/18 14:35 RBC Morphology Not Reportable 05/27/18 14:35 Dimorphic RBCs Not Reportable 05/27/18 14:35 Polychromasia Not Reportable 05/27/18 14:35 Hypochromasia 1+ 05/27/18 14:35 Poikilocytosis Not Reportable 05/27/18 14:35 Anisocytosis 1+ 05/27/18 14:35 Microcytosis Not Reportable 05/27/18 14:35 Macrocytosis Not Reportable 05/27/18 14:35 Spherocytes Not Reportable 05/27/18 14:35 Pappenheimer Bodies Not Reportable 05/27/18 14:35 Sickle Cells Not Reportable 05/27/18 14:35 Target Cells 1+ 05/27/18 14:35 Tear Drop Cells Not Reportable 05/27/18 14:35 Ovalocytes Not Reportable 05/27/18 14:35 Helmet Cells Not Reportable 05/27/18 14:35 [place] Heart Bodies Not Reportable 05/27/18 14:35 [place] Rings Not Reportable 05/27/18 14:35 Jazmin Cells Not Reportable 05/27/18 14:35 Bite Cells Not Reportable 05/27/18 14:35 Crenated Cell Not Reportable 05/27/18 14:35 Elliptocytes Not Reportable 05/27/18 14:35 Acanthocytes (Spur) Not Reportable 05/27/18 14:35 Rouleaux Not Reportable 05/27/18 14:35 Hemoglobin C Crystals Not Reportable 05/27/18 14:35 Schistocytes Not Reportable 05/27/18 14:35 Malaria parasites Not Reportable 05/27/18 14:35 James Bodies Not Reportable 05/27/18 14:35 Hem Pathologist Commnt No 05/27/18 14:35 PT 16.4 Sec. (12.2-14.9) H 05/26/18 05:15 INR 1.24 (0.87-1.13) H 05/26/18 05:15 APTT 30.3 Sec. (24.2-36.6) 05/07/18 10:37 POC ABG pH 7.372 (7.35-7.45) 05/14/18 10:36 POC ABG pCO2 31.8 (35-45) L 05/14/18 10:36 POC ABG pO2 83 (80-105) 05/14/18 10:36 POC ABG HCO3 18.5 05/14/18 10:36 POC ABG Total CO2 19 05/14/18 10:36 POC ABG O2 Sat 96 05/14/18 10:36 POC ABG Base Excess -7 05/14/18 10:36 FiO2 21 % 05/14/18 10:36 Sodium 143 mmol/L (137-145) 05/29/18 05:13 Potassium 4.1 mmol/L (3.6-5.0) 05/29/18 05:13 Chloride 114.9 mmol/L (98-107) H 05/29/18 05:13 Carbon Dioxide 19 mmol/L (22-30) L 05/29/18 05:13 Anion Gap 13 mmol/L 05/29/18 05:13 BUN 40 mg/dL (9-20) H 05/29/18 05:13 Creatinine 2.0 mg/dL (0.8-1.5) H 05/29/18 05:13 Estimated GFR 39 ml/min 05/29/18 05:13 BUN/Creatinine Ratio 20 % 05/29/18 05:13 Glucose 106 mg/dL (75-100) H 05/29/18 05:13 POC Glucose 143 (70-105) H 05/29/18 17:00 Hemoglobin A1c 7.6 % (4-6) H 05/08/18 03:15 Osmolality 316 Mosm/kg 05/19/18 01:19 Lactic Acid 1.60 mmol/L (0.7-2.0) 05/07/18 13:21 Uric Acid 9.0 mg/dL (3.5-7.6) H 05/19/18 01:19 Calcium 7.0 mg/dL (8.4-10.2) L 05/29/18 05:13 Phosphorus 3.30 mg/dL (2.5-4.5) 05/27/18 14:35 Magnesium 1.90 mg/dL (1.7-2.3) 05/27/18 14:35 Total Bilirubin 0.20 mg/dL (0.1-1.2) 05/23/18 05:03 AST 10 units/L (5-40) 05/23/18 05:03 ALT < 5 units/L (7-56) L 05/23/18 05:03 Alkaline Phosphatase 50 units/L (35-129) 05/23/18 05:03 Total Protein 4.2 g/dL (6.3-8.2) L 05/23/18 05:03 Albumin 0.9 g/dL (3.9-5) L 05/23/18 05:03 Albumin/Globulin Ratio 0.3 % 05/23/18 05:03 Urine Color [place]ora (Yellow) 05/24/18 Unknown Urine Turbidity Turbid (Clear) 05/24/18 Unknown Urine pH 5.0 (5.0-7.0) 05/24/18 Unknown Ur Specific [place] 1.019 (1.003-1.030) 05/24/18 Unknown Urine Protein 100 mg/dl mg/dL (Negative) 05/24/18 Unknown Urine Glucose (UA) Neg mg/dL (Negative) 05/24/18 Unknown Urine Ketones Neg mg/dL (Negative) 05/24/18 Unknown Urine Blood Mod (Negative) 05/24/18 Unknown Urine Nitrite Neg (Negative) 05/24/18 Unknown Urine Bilirubin Neg (Negative) 05/24/18 Unknown Urine Urobilinogen < 2.0 mg/dL (<2.0) 05/24/18 Unknown Ur Leukocyte Esterase Lg (Negative) 05/24/18 Unknown Urine WBC (Auto) > 182.0 /HPF (0.0-6.0) H 05/24/18 Unknown Urine RBC (Auto) > 182.0 /HPF (0.0-6.0) 05/24/18 Unknown U Epithel Cells (Auto) < 1.0 /HPF (0-13.0) 05/07/18 12:20 Urine Bacteria (Auto) 1+ /HPF (Negative) 05/07/18 12:20 Urine Mucus Few /HPF 05/07/18 12:20 Urine Yeast (Budding) 3+ /HPF 05/24/18 Unknown Immunofix Electrophor see below 05/19/18 01:19 Influenza A (Rapid) Negative (Negative) 05/12/18 Unknown Influenza A (RT-PCR) Negative (Negative) 05/12/18 Unknown Influenza B (Rapid) Negative (Negative) 05/12/18 Unknown Influenza B (RT-PCR) Negative (Negative) 05/12/18 Unknown Blood Type O POSITIVE 05/22/18 10:08 Antibody Screen Negative 05/22/18 10:08 Crossmatch See Detail 05/22/18 10:08 Nutrition/Malnutrition Assess - Dietary Evaluation Nutrition/Malnutrition Findings: Nutrition Notes Start: 05/08/18 09:32 Freq: Status: Active Protocol: Document 05/29/18 11:09 VIVIENNE (Rec: 05/29/18 11:24 VIVIENNE [email or web address]) Nutrition Notes Initial or Follow up Brief Note Subjective/Other Information manager truck requested bolus feeds for this pt; scheduled for D/C today or tomorrow. Nutrition Intervention Nutrition Support: Give pt 480ml of Glucerna 1.2 TID with 100ml water flush q4h (provides 1728 kcal and 86g pro). If using cans, bolus Glucerna 1.2 TID with following schedule: 2 cans Glucerna 1.2 for breakfast, lunch and dinner. Provide 100ml water flush q4h. (provides 1710 kcal and 84g pro) Follow-Up By: 05/30/18 Additional Comments F/U: bolus TF tolerance
[2018-05-29] MEDS: PRAVACHOL FEEDTUBE SCH (21:50)
[2018-05-29] MEDS: SODIUM CHLORIDE FLUSH SYRINGE 10 ML IV SCH ×2 (21:51→22:01)
[2018-05-30] MEDS: HumaLOG SUB-Q SCH ×4 (00:28→17:52)
[2018-05-30] MEDS: REGLAN FEEDTUBE SCH ×4 (08:06→22:00)
[2018-05-30 09:15] LABS: Calcium 7.1 mg/dL (8.4-10.2)
--- NOTE | 2018-05-30 09:21 | Progress Note ---
Subjective Principal diagnosis: PEG Interval history: Patient was seen today for follow-up on multiple renal related issues Events of this hospitalization noted Resting comfortably Creatinine stable for last 5 days Vitals labs intake output medications were reviewed Social history: Reviewed Allergies: Reviewed Family history: Reviewed Physical examination HEENT: Oral mucosa moist no pallor or icterus Neck: Supple no JVD Chest: Clear to auscultation anteriorly CVS: Regular rate and rhythm S1 and S2 heard Abdomen: Soft nontender no suprapubic masses no organomegaly appreciable Extremity: Approximately 2 eripheral edema Musculoskeletal: No joint effusion noted in knees and ankle Neurological: Alert awake Dermatology: No petechial rashes Psychiatry: No evidence of any agitation and aggression noted Assessment and plan Acute kidney injury in a patient with multiple risk factor for chronic kidney disease, creatinine is currently relatively stable for last 4-5 days Hypertension: Adequately controlled, mild tachycardia 107 yesterday,judicious diuretics Patient will need follow-up labs as of May 27 his hemoglobin was 8.2, creatinine is currently 2.1 with bicarbonate 19 Hypernatremia appears to have resolved Avoid nephrotoxic medication continue to monitor renal function Strict intake and output monitoring Free water boluses as required for hypernatremia Obstructive uropathy: Patient will need to follow-up with urology Volume overload continue to use Lasix as tolerated no need for hemodialysis jose francisco atment for now Overall prognosis appears to be limited due to age and multiple comorbidities Prognosis is very poro has been explaiend to his daughter duting this admission We'll continue to follow and make recommendation from renal standpoint Objective - Lab 05/30/18 15:15 05/31/18 18:28 Most recent lab results Calcium 7.1 mg/dL (8.4-10.2) L 05/30/18 08:14 Phosphorus 3.30 mg/dL (2.5-4.5) 05/27/18 14:35 Magnesium 1.90 mg/dL (1.7-2.3) 05/27/18 14:35 Medications & Allergies - Medications Allergies/Adverse Reactions: Allergies Penicillins Allergy (Verified 04/11/18 16:00) Unknown Home Medications: Home Medications Medication Instructions Recorded Confirmed Last Taken Type Clopidogrel Bisulfate [Plavix] 75 mg PO DAILY #0 09/21/17 05/07/18 04/24/18 12:00 History Famotidine [Pepcid] 20 mg PO DAILY #0 09/21/17 05/07/18 04/24/18 History 20mg Simvastatin 40 mg PO HS 09/21/17 05/07/18 04/24/18 08:00 History 20 mg Sucralfate [Carafate] 1 gram PO BID #0 09/21/17 05/07/18 04/24/18 12:00 History 1 gm Ferrous Sulfate [Feosol 325 MG tab] 325 mg PO BID #60 tablet 05/04/18 05/07/18 Unknown Rx Active Medications: Generic Name Dose Route Start Last Admin Trade Name Freq PRN Reason Stop Dose Admin Acetaminophen 650 mg 05/27/18 07:30 05/29/18 09:35 Tylenol FEEDTUBE 650 mg Q4H PRN Administration Pain MILD(1-3)/Fever >100.5/MACIAS Albuterol 2.5 mg 05/10/18 15:59 Proventil IH Q4HRT PRN Shortness Of Breath Lipase/Protease/Amylase 1 each 05/26/18 16:21 Pancreaze 10,500 Unit FEEDTUBE PRN PRN For Clogged Feeding Tube Bisacodyl 10 mg 05/16/18 13:02 05/16/18 13:54 Dulcolax [place] 10 mg QDAY PRN Administration Constipation Calcium Carbonate/Glycine 1,250 mg 05/24/18 10:00 05/29/18 21:50 Calcium Carbonate FEEDTUBE 1,250 mg BID FREDI Administration Dextrose 50 ml 05/19/18 05:05 D50w (25gm) Syringe IV PRN PRN Hypoglycemia Enoxaparin Sodium 30 mg 05/28/18 10:00 05/29/18 12:36 Lovenox SUB-Q 30 mg QDAY FREDI Administration Ferrous Sulfate 308 mg 05/27/18 10:00 05/29/18 21:50 Ferrous Sulfate FEEDTUBE 308 mg BID FREDI Administration Furosemide 80 mg 05/29/18 13:00 05/29/18 14:32 Lasix PO 80 mg QDAY FREDI Administration Hydromorphone HCl 0.5 mg 05/08/18 02:22 Dilaudid IV Q3H PRN Pain , Severe (7-10) Dextrose 1,000 mls @ 150 mls/hr 05/27/18 16:00 05/28/18 02:51 D5w IV 125 mls/hr DIRECT FREDI Administration Insulin Human Lispro 0 unit 05/25/18 13:00 05/30/18 06:10 Humalog SUB-Q Not Given Q6HR FREDI Protocol Lansoprazole 30 mg 05/23/18 10:00 05/29/18 12:37 Prevacid Solutab FEEDTUBE 30 mg QDAY FREDI Administration Metoclopramide HCl 5 mg 05/27/18 11:30 05/30/18 08:06 Reglan FEEDTUBE 5 mg ACHS FREDI Administration Ondansetron HCl 4 mg 05/08/18 02:22 Zofran IV Q8H PRN Nausea And Vomiting Oxycodone/Acetaminophen 1 tab 05/27/18 07:30 Percocet 5/325 FEEDTUBE Q6H PRN Pain, Moderate (4-6) Pravastatin Sodium 80 mg 05/27/18 22:00 05/29/18 21:50 Pravachol FEEDTUBE 80 mg QHS FREDI Administration Simple Syrup 15 ml 05/26/18 16:21 Simple Syrup FEEDTUBE PRN PRN Hypoglycemia Simple Syrup 30 ml 05/28/18 08:36 Simple Syrup FEEDTUBE PRN PRN Hypoglycemia Sodium Bicarbonate 325 mg 05/26/18 16:21 Sodium Bicarbonate FEEDTUBE PRN PRN For Clogged Feeding Tube Sodium Bicarbonate 1,300 mg 05/29/18 14:00 05/29/18 21:50 Sodium Bicarbonate PO 1,300 mg BID FREDI Administration Sodium Chloride 10 ml 05/08/18 10:00 05/29/18 22:01 Sodium Chloride Flush Syringe 10 Ml IV Not Given BID FREDI Sodium Chloride 10 ml 05/08/18 02:22 05/08/18 03:56 Sodium Chloride Flush Syringe 10 Ml IV 10 ml PRN PRN Administration LINE FLUSH Sucralfate 1 gm 05/27/18 10:00 05/29/18 21:49 Carafate FEEDTUBE 1 gm BID FREDI Administration
[2018-05-30] MEDS: LOVENOX SUB-Q SCH (09:58)
[2018-05-30] MEDS: LASIX PO SCH (09:59)
[2018-05-30] MEDS: FERROUS SULFATE FEEDTUBE SCH ×2 (09:59→22:00)
[2018-05-30] MEDS: CARAFATE FEEDTUBE SCH ×2 (10:00→22:00)
[2018-05-30] MEDS: PREVACID SOLUTAB FEEDTUBE SCH (10:00)
[2018-05-30] MEDS ORDERED: LOPRESSOR PO SCH (10:00)
[2018-05-30] MEDS: CALCIUM CARBONATE FEEDTUBE SCH ×2 (10:00→22:01)
[2018-05-30] MEDS: SODIUM BICARBONATE PO SCH ×2 (10:00→21:50)
[2018-05-30] MEDS: SODIUM CHLORIDE FLUSH SYRINGE 10 ML IV SCH ×2 (10:01→22:01)
[2018-05-30 15:24] LABS: Hematocrit 25.3 % (35.5-45.6); Hemoglobin 7.7 gm/dl (11.8-15.2); Mean Corpuscular HGB Conc 31 % (32-34); Mean Corpuscular Volume 76 fl (84-94); Platelet Count 194 K/mm3 (140-440); Red Blood Count 3.32 M/mm3 (3.65-5.03)
[2018-05-30 15:29] LABS: Red Cell Distribution Width 25.7 % (13.2-15.2)
[2018-05-30 16:25] LABS: Band Neutrophils # (Manual) 0.3 K/mm3; Basophils % (Manual) 0 % (0.0-1.8); Total Cells Counted 100
[2018-05-30 16:26] LABS: Anisocytosis 2+; Poikilocytosis 1+; Target Cells Few
[2018-05-30 16:27] LABS: Giant Platelets Few; Hypochromasia 2+; Large Platelets Few
[2018-05-30 16:28] LABS: Platelet Estimate Consistent w Auto; Spherocytes Few
--- NOTE | 2018-05-30 18:44 | Progress Note ---
Assessment and Plan Assessment and plan: --Sinus tachycardia; heart rate ranging between 110 to 120s No symptoms, advised low dose metoprolol, the daughter at the bedside Refused the medication --Left upper extremity swelling; significantly improved Elevate the limb, venous Doppler negative for DVT, superficial thrombophlebitis --Oropharngeal dysphagia; s/p Laparoscopic PEG placement per surgery Bolus tube feeds tolerated by the patient, Reglan as needed 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 Continuous Durán recommended by urology --DEVIN, likely vasomotor nephropathy, mild improvement Nephrology following, gentle hydration, avoid nephrotoxins --Chronic left hydronephrosis, atrophic left kidney Extensively evaluated by urology during previous admission --Hyperglycemia/type 2 diabetes mellitus Accu-Chek sliding scale coverage and ADA diet, insulin as needed --Acute metabolic encephalopathy; back to baseline mentally alert and awake likely multifactorial.Head CT scan on 05/12/18 neg --Severe protein calorie malnutrition PEG feeds per protocol,nutrition supplements --H/O CVA with right-sided hemiparesis, supportive care --Chronic urinary retention; urology rec, cont durán catheter --Physical deconditioning; PT/OT , recommend acute/subacute rehabilitation Patient's family refused, --Discharge planning; home with home health as requested by family when Medically stable --DVT prophylaxis with SCD No Pharmacologic anticoagulation due to chronic anemia with high risk for bleed --Full code Plan of care is reviewed with the patient's at the bedside Possible discharge in 1-2 days home with home health is stable History Interval history: Patient seen and examined medical records reviewed Patient is sleeping comfortably however has sinus tachycardia heart rate ranging between 100 to 120s, No symptoms Vital signs reviewed Hospitalist Physical - Constitutional Vitals: Temp Pulse Resp BP Pulse Ox 97.4 F L 120 H 20 104/54 99 05/30/18 08:36 05/30/18 15:26 05/30/18 08:36 05/30/18 08:36 05/30/18 15:26 General appearance: Present: no acute distress, well-nourished, obese - EENT Eyes: Present: PERRL, EOM intact - Neck Neck: Present: supple, normal ROM - Respiratory Respiratory effort: normal Respiratory: bilateral: diminished, negative: rales, rhonchi, wheezing - Cardiovascular Rhythm: regular Heart Sounds: Present: S1 & S2 - Extremities Extremities: no ischemia, No edema, abnormal (mild edema but extremities) - Abdominal General gastrointestinal: soft, non-tender, non-distended, normal bowel sounds, other (PEG in place) - Integumentary Integumentary: Present: clear, warm - Psychiatric Psychiatric: appropriate mood/affect, cooperative - Neurologic Neurologic: moves all extremities Results - Labs CBC & Chem 7: 05/30/18 15:15 05/30/18 08:14 Labs: Laboratory Last Values WBC 8.2 K/mm3 (4.5-11.0) 05/30/18 15:15 RBC 3.32 M/mm3 (3.65-5.03) L 05/30/18 15:15 Hgb 7.7 gm/dl (11.8-15.2) L 05/30/18 15:15 Hct 25.3 % (35.5-45.6) L 05/30/18 15:15 MCV 76 fl (84-94) L 05/30/18 15:15 MCH 23 pg (28-32) L 05/30/18 15:15 MCHC 31 % (32-34) L 05/30/18 15:15 RDW 25.7 % (13.2-15.2) H 05/30/18 15:15 Plt Count 194 K/mm3 (140-440) 05/30/18 15:15 Lymph % (Auto) Core Extruder 05/24/18 10:59 Vance % (Auto) Core Extruder 05/24/18 10:59 Eos % (Auto) Core Extruder 05/24/18 10:59 Baso % (Auto) Core Extruder 05/24/18 10:59 Lymph # Core Extruder 05/24/18 10:59 Vance # Core Extruder 05/24/18 10:59 Eos # Core Extruder 05/24/18 10:59 Baso # Core Extruder 05/24/18 10:59 Add Manual Diff Complete 05/30/18 15:15 Total Counted 100 05/30/18 15:15 Seg Neutrophils % Core Extruder 05/24/18 10:59 Seg Neuts % (Manual) 91.0 % (40.0-70.0) H 05/30/18 15:15 Band Neutrophils % 4.0 % 05/30/18 15:15 Lymphocytes % (Manual) 2.0 % (13.4-35.0) L 05/30/18 15:15 Reactive Lymphs % (Man) 0 % 05/30/18 15:15 Monocytes % (Manual) 2.0 % (0.0-7.3) 05/30/18 15:15 Eosinophils % (Manual) 1.0 % (0.0-4.3) 05/30/18 15:15 Basophils % (Manual) 0 % (0.0-1.8) 05/30/18 15:15 Metamyelocytes % 0 % 05/30/18 15:15 Myelocytes % 0 % 05/30/18 15:15 Promyelocytes % 0 % 05/30/18 15:15 Blast Cells % 0 % 05/30/18 15:15 Nucleated RBC % Not Reportable 05/30/18 15:15 Seg Neutrophils # Core Extruder 05/24/18 10:59 Seg Neutrophils # Man 7.5 K/mm3 (1.8-7.7) 05/30/18 15:15 Band Neutrophils # 0.3 K/mm3 05/30/18 15:15 Lymphocytes # (Manual) 0.2 K/mm3 (1.2-5.4) L 05/30/18 15:15 Abs React Lymphs (Man) 0.0 K/mm3 05/30/18 15:15 Monocytes # (Manual) 0.2 K/mm3 (0.0-0.8) 05/30/18 15:15 Eosinophils # (Manual) 0.1 K/mm3 (0.0-0.4) 05/30/18 15:15 Basophils # (Manual) 0.0 K/mm3 (0.0-0.1) 05/30/18 15:15 Metamyelocytes # 0.0 K/mm3 05/30/18 15:15 Myelocytes # 0.0 K/mm3 05/30/18 15:15 Promyelocytes # 0.0 K/mm3 05/30/18 15:15 Blast Cells # 0.0 K/mm3 05/30/18 15:15 WBC Morphology Not Reportable 05/30/18 15:15 Hypersegmented Neuts Not Reportable 05/30/18 15:15 Hyposegmented Neuts Not Reportable 05/30/18 15:15 Hypogranular Neuts Not Reportable 05/30/18 15:15 Smudge Cells Not Reportable 05/30/18 15:15 Toxic Granulation Not Reportable 05/30/18 15:15 Toxic Vacuolation Not Reportable 05/30/18 15:15 Dohle Bodies Not Reportable 05/30/18 15:15 Pelger-Huet Anomaly Not Reportable 05/30/18 15:15 Alba Rods Not Reportable 05/30/18 15:15 Platelet Estimate Consistent w auto 05/30/18 15:15 Clumped Platelets Not Reportable 05/30/18 15:15 Plt Clumps, EDTA Not Reportable 05/30/18 15:15 Large Platelets Few 05/30/18 15:15 Giant Platelets Few 05/30/18 15:15 Platelet Satelliting Not Reportable 05/30/18 15:15 Plt Morphology Comment Not Reportable 05/30/18 15:15 RBC Morphology Not Reportable 05/30/18 15:15 Dimorphic RBCs Not Reportable 05/30/18 15:15 Polychromasia Not Reportable 05/30/18 15:15 Hypochromasia 2+ 05/30/18 15:15 Poikilocytosis 1+ 05/30/18 15:15 Anisocytosis 2+ 05/30/18 15:15 Microcytosis 1+ 05/30/18 15:15 Macrocytosis Not Reportable 05/30/18 15:15 Spherocytes Few 05/30/18 15:15 Pappenheimer Bodies Not Reportable 05/30/18 15:15 Sickle Cells Not Reportable 05/30/18 15:15 Target Cells Few 05/30/18 15:15 Tear Drop Cells Not Reportable 05/30/18 15:15 Ovalocytes Not Reportable 05/30/18 15:15 Helmet Cells Not Reportable 05/30/18 15:15 Mccoy-[place] Bodies Not Reportable 05/30/18 15:15 [place] Rings Not Reportable 05/30/18 15:15 Jazmin Cells Not Reportable 05/30/18 15:15 Bite Cells Not Reportable 05/30/18 15:15 Crenated Cell Not Reportable 05/30/18 15:15 Elliptocytes Not Reportable 05/30/18 15:15 Acanthocytes (Spur) Not Reportable 05/30/18 15:15 Rouleaux Not Reportable 05/30/18 15:15 Hemoglobin C Crystals Not Reportable 05/30/18 15:15 Schistocytes Not Reportable 05/30/18 15:15 Malaria parasites Not Reportable 05/30/18 15:15 James Bodies Not Reportable 05/30/18 15:15 Hem Pathologist Commnt No 05/30/18 15:15 PT 16.4 Sec. (12.2-14.9) H 05/26/18 05:15 INR 1.24 (0.87-1.13) H 05/26/18 05:15 APTT 30.3 Sec. (24.2-36.6) 05/07/18 10:37 POC ABG pH 7.372 (7.35-7.45) 05/14/18 10:36 POC ABG pCO2 31.8 (35-45) L 05/14/18 10:36 POC ABG pO2 83 (80-105) 05/14/18 10:36 POC ABG HCO3 18.5 05/14/18 10:36 POC ABG Total CO2 19 05/14/18 10:36 POC ABG O2 Sat 96 05/14/18 10:36 POC ABG Base Excess -7 05/14/18 10:36 FiO2 21 % 05/14/18 10:36 Sodium 144 mmol/L (137-145) 05/30/18 08:14 Potassium 4.6 mmol/L (3.6-5.0) 05/30/18 08:14 Chloride 113.7 mmol/L (98-107) H 05/30/18 08:14 Carbon Dioxide 19 mmol/L (22-30) L 05/30/18 08:14 Anion Gap 16 mmol/L 05/30/18 08:14 BUN 41 mg/dL (9-20) H 05/30/18 08:14 Creatinine 2.1 mg/dL (0.8-1.5) H 05/30/18 08:14 Estimated GFR 37 ml/min 05/30/18 08:14 BUN/Creatinine Ratio 20 % 05/30/18 08:14 Glucose 156 mg/dL (75-100) H 05/30/18 08:14 POC Glucose 111 (70-105) H 05/30/18 17:55 Hemoglobin A1c 7.6 % (4-6) H 05/08/18 03:15 Osmolality 316 Mosm/kg 05/19/18 01:19 Lactic Acid 1.60 mmol/L (0.7-2.0) 05/07/18 13:21 Uric Acid 9.0 mg/dL (3.5-7.6) H 05/19/18 01:19 Calcium 7.1 mg/dL (8.4-10.2) L 05/30/18 08:14 Phosphorus 3.30 mg/dL (2.5-4.5) 05/27/18 14:35 Magnesium 1.90 mg/dL (1.7-2.3) 05/27/18 14:35 Total Bilirubin 0.20 mg/dL (0.1-1.2) 05/23/18 05:03 AST 10 units/L (5-40) 05/23/18 05:03 ALT < 5 units/L (7-56) L 05/23/18 05:03 Alkaline Phosphatase 50 units/L (35-129) 05/23/18 05:03 Total Protein 4.2 g/dL (6.3-8.2) L 05/23/18 05:03 Albumin 0.9 g/dL (3.9-5) L 05/23/18 05:03 Albumin/Globulin Ratio 0.3 % 05/23/18 05:03 Urine Color Flora (Yellow) 05/24/18 Unknown Urine Turbidity Turbid (Clear) 05/24/18 Unknown Urine pH 5.0 (5.0-7.0) 05/24/18 Unknown Ur Specific [place] 1.019 (1.003-1.030) 05/24/18 Unknown Urine Protein 100 mg/dl mg/dL (Negative) 05/24/18 Unknown Urine Glucose (UA) Neg mg/dL (Negative) 05/24/18 Unknown Urine Ketones Neg mg/dL (Negative) 05/24/18 Unknown Urine Blood Mod (Negative) 05/24/18 Unknown Urine Nitrite Neg (Negative) 05/24/18 Unknown Urine Bilirubin Neg (Negative) 05/24/18 Unknown Urine Urobilinogen < 2.0 mg/dL (<2.0) 05/24/18 Unknown Ur Leukocyte Esterase Lg (Negative) 05/24/18 Unknown Urine WBC (Auto) > 182.0 /HPF (0.0-6.0) H 05/24/18 Unknown Urine RBC (Auto) > 182.0 /HPF (0.0-6.0) 05/24/18 Unknown U Epithel Cells (Auto) < 1.0 /HPF (0-13.0) 05/07/18 12:20 Urine Bacteria (Auto) 1+ /HPF (Negative) 05/07/18 12:20 Urine Mucus Few /HPF 05/07/18 12:20 Urine Yeast (Budding) 3+ /HPF 05/24/18 Unknown Immunofix Electrophor see below 05/19/18 01:19 Influenza A (Rapid) Negative (Negative) 05/12/18 Unknown Influenza A (RT-PCR) Negative (Negative) 05/12/18 Unknown Influenza B (Rapid) Negative (Negative) 05/12/18 Unknown Influenza B (RT-PCR) Negative (Negative) 05/12/18 Unknown Blood Type O POSITIVE 05/22/18 10:08 Antibody Screen Negative 05/22/18 10:08 Crossmatch See Detail 05/22/18 10:08 Nutrition/Malnutrition Assess - Dietary Evaluation Nutrition/Malnutrition Findings: Nutrition Notes Start: 05/08/18 09:32 Freq: Status: Active Protocol: Document 05/30/18 14:02 VIVIENNE (Rec: 05/30/18 14:04 VIVIENNE SRW- [email or web address]) Nutrition Notes Initial or Follow up Brief Note Subjective/Other Information Per RN, pt had gastric residuals of 300ml this am; two doses of Reglan administered Nutrition Intervention Follow-Up By: 06/01/18 Additional Comments F/U: bolus TF tolerance
[2018-05-30] MEDS: PRAVACHOL FEEDTUBE SCH (21:50)
[2018-05-31] MEDS: HumaLOG SUB-Q SCH ×4 (04:41→19:43)
[2018-05-31 07:34] LABS: Calcium 7.2 mg/dL (8.4-10.2)
[2018-05-31] MEDS: REGLAN FEEDTUBE SCH ×4 (08:40→21:30)
--- NOTE | 2018-05-31 09:59 | Progress Note ---
Assessment and Plan Assessment and plan: --Sinus tachycardia; heart rate ranging between 110 to 120s No symptoms, advised low dose metoprolol, the daughter at the bedside Refused the medication, --Left upper extremity swelling; significantly improved Elevate the limb, venous Doppler negative for DVT, superficial thrombophlebitis --Oropharngeal dysphagia; s/p Laparoscopic PEG placement per surgery Bolus tube feeds tolerated by the patient, Reglan as needed 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 Continuous Durán recommended by urology --DEVIN, likely vasomotor nephropathy, mild improvement Nephrology following, gentle hydration, avoid nephrotoxins --Chronic left hydronephrosis, atrophic left kidney Extensively evaluated by urology during previous admission --Hyperglycemia/type 2 diabetes mellitus Accu-Chek sliding scale coverage and ADA diet, insulin as needed --Acute metabolic encephalopathy; present on admission Significantly improved --Severe protein calorie malnutrition PEG feeds per protocol,nutrition supplements --H/O CVA with right-sided hemiparesis, supportive care --Chronic urinary retention; urology rec, cont durán catheter --Physical deconditioning; PT/OT , recommend acute/subacute rehabilitation Patient's family refused, --Discharge planning; home with home health as requested by family when Medically stable --DVT prophylaxis with SCD No Pharmacologic anticoagulation due to chronic anemia with high risk for bleed --Full code Plan of care is reviewed with the patient's at the bedside Possible discharge in 1-2 days home with home health is stable History Interval history: Patient seen and examined medical records reviewed Patient is comfortable sleeping easily awakens No new complaints sinus tachycardia on telemetry Family refused low-dose beta blockers Vital signs reviewed Hospitalist Physical - Constitutional Vitals: Temp Pulse Resp BP Pulse Ox 97.7 F 135 H 20 123/68 96 05/31/18 01:52 05/31/18 01:52 05/31/18 01:52 05/31/18 01:52 05/31/18 09:27 General appearance: Present: no acute distress, well-nourished, obese - EENT Eyes: Present: PERRL, EOM intact - Neck Neck: Present: supple, normal ROM - Respiratory Respiratory effort: normal Respiratory: bilateral: diminished, negative: rales, rhonchi, wheezing - Cardiovascular Rhythm: regular Heart Sounds: Present: S1 & S2 - Extremities Extremities: no ischemia, No edema - Abdominal General gastrointestinal: soft, non-tender, non-distended, normal bowel sounds, other (PEG In place) - Integumentary Integumentary: Present: clear, warm - Psychiatric Psychiatric: appropriate mood/affect, cooperative - Neurologic Neurologic: CNII-XII intact, moves all extremities Results - Labs CBC & Chem 7: 05/30/18 15:15 05/31/18 06:35 Labs: Laboratory Last Values WBC 8.2 K/mm3 (4.5-11.0) 05/30/18 15:15 RBC 3.32 M/mm3 (3.65-5.03) L 05/30/18 15:15 Hgb 7.7 gm/dl (11.8-15.2) L 05/30/18 15:15 Hct 25.3 % (35.5-45.6) L 05/30/18 15:15 MCV 76 fl (84-94) L 05/30/18 15:15 MCH 23 pg (28-32) L 05/30/18 15:15 MCHC 31 % (32-34) L 05/30/18 15:15 RDW 25.7 % (13.2-15.2) H 05/30/18 15:15 Plt Count 194 K/mm3 (140-440) 05/30/18 15:15 Lymph % (Auto) Care Management Assistant 05/24/18 10:59 Villalba % (Auto) Care Management Assistant 05/24/18 10:59 Eos % (Auto) Care Management Assistant 05/24/18 10:59 Baso % (Auto) Care Management Assistant 05/24/18 10:59 Lymph # Care Management Assistant 05/24/18 10:59 Villalba # Care Management Assistant 05/24/18 10:59 Eos # Care Management Assistant 05/24/18 10:59 Baso # Care Management Assistant 05/24/18 10:59 Add Manual Diff Complete 05/30/18 15:15 Total Counted 100 05/30/18 15:15 Seg Neutrophils % Care Management Assistant 05/24/18 10:59 Seg Neuts % (Manual) 91.0 % (40.0-70.0) H 05/30/18 15:15 Band Neutrophils % 4.0 % 05/30/18 15:15 Lymphocytes % (Manual) 2.0 % (13.4-35.0) L 05/30/18 15:15 Reactive Lymphs % (Man) 0 % 05/30/18 15:15 Monocytes % (Manual) 2.0 % (0.0-7.3) 05/30/18 15:15 Eosinophils % (Manual) 1.0 % (0.0-4.3) 05/30/18 15:15 Basophils % (Manual) 0 % (0.0-1.8) 05/30/18 15:15 Metamyelocytes % 0 % 05/30/18 15:15 Myelocytes % 0 % 05/30/18 15:15 Promyelocytes % 0 % 05/30/18 15:15 Blast Cells % 0 % 05/30/18 15:15 Nucleated RBC % Not Reportable 05/30/18 15:15 Seg Neutrophils # Care Management Assistant 05/24/18 10:59 Seg Neutrophils # Man 7.5 K/mm3 (1.8-7.7) 05/30/18 15:15 Band Neutrophils # 0.3 K/mm3 05/30/18 15:15 Lymphocytes # (Manual) 0.2 K/mm3 (1.2-5.4) L 05/30/18 15:15 Abs React Lymphs (Man) 0.0 K/mm3 05/30/18 15:15 Monocytes # (Manual) 0.2 K/mm3 (0.0-0.8) 05/30/18 15:15 Eosinophils # (Manual) 0.1 K/mm3 (0.0-0.4) 05/30/18 15:15 Basophils # (Manual) 0.0 K/mm3 (0.0-0.1) 05/30/18 15:15 Metamyelocytes # 0.0 K/mm3 05/30/18 15:15 Myelocytes # 0.0 K/mm3 05/30/18 15:15 Promyelocytes # 0.0 K/mm3 05/30/18 15:15 Blast Cells # 0.0 K/mm3 05/30/18 15:15 WBC Morphology Not Reportable 05/30/18 15:15 Hypersegmented Neuts Not Reportable 05/30/18 15:15 Hyposegmented Neuts Not Reportable 05/30/18 15:15 Hypogranular Neuts Not Reportable 05/30/18 15:15 Smudge Cells Not Reportable 05/30/18 15:15 Toxic Granulation Not Reportable 05/30/18 15:15 Toxic Vacuolation Not Reportable 05/30/18 15:15 Dohle Bodies Not Reportable 05/30/18 15:15 Pelger-Huet Anomaly Not Reportable 05/30/18 15:15 Alba Rods Not Reportable 05/30/18 15:15 Platelet Estimate Consistent w auto 05/30/18 15:15 Clumped Platelets Not Reportable 05/30/18 15:15 Plt Clumps, EDTA Not Reportable 05/30/18 15:15 Large Platelets Few 05/30/18 15:15 Giant Platelets Few 05/30/18 15:15 Platelet Satelliting Not Reportable 05/30/18 15:15 Plt Morphology Comment Not Reportable 05/30/18 15:15 RBC Morphology Not Reportable 05/30/18 15:15 Dimorphic RBCs Not Reportable 05/30/18 15:15 Polychromasia Not Reportable 05/30/18 15:15 Hypochromasia 2+ 05/30/18 15:15 Poikilocytosis 1+ 05/30/18 15:15 Anisocytosis 2+ 05/30/18 15:15 Microcytosis 1+ 05/30/18 15:15 Macrocytosis Not Reportable 05/30/18 15:15 Spherocytes Few 05/30/18 15:15 Pappenheimer Bodies Not Reportable 05/30/18 15:15 Sickle Cells Not Reportable 05/30/18 15:15 Target Cells Few 05/30/18 15:15 Tear Drop Cells Not Reportable 05/30/18 15:15 Ovalocytes Not Reportable 05/30/18 15:15 Helmet Cells Not Reportable 05/30/18 15:15 Mccoy-[place] Bodies Not Reportable 05/30/18 15:15 [place] Rings Not Reportable 05/30/18 15:15 [place] Cells Not Reportable 05/30/18 15:15 Bite Cells Not Reportable 05/30/18 15:15 Crenated Cell Not Reportable 05/30/18 15:15 Elliptocytes Not Reportable 05/30/18 15:15 Acanthocytes (Spur) Not Reportable 05/30/18 15:15 Rouleaux Not Reportable 05/30/18 15:15 Hemoglobin C Crystals Not Reportable 05/30/18 15:15 Schistocytes Not Reportable 05/30/18 15:15 Malaria parasites Not Reportable 05/30/18 15:15 James Bodies Not Reportable 05/30/18 15:15 Hem Pathologist Commnt No 05/30/18 15:15 PT 16.4 Sec. (12.2-14.9) H 05/26/18 05:15 INR 1.24 (0.87-1.13) H 05/26/18 05:15 APTT 30.3 Sec. (24.2-36.6) 05/07/18 10:37 POC ABG pH 7.372 (7.35-7.45) 05/14/18 10:36 POC ABG pCO2 31.8 (35-45) L 05/14/18 10:36 POC ABG pO2 83 (80-105) 05/14/18 10:36 POC ABG HCO3 18.5 05/14/18 10:36 POC ABG Total CO2 19 05/14/18 10:36 POC ABG O2 Sat 96 05/14/18 10:36 POC ABG Base Excess -7 05/14/18 10:36 FiO2 21 % 05/14/18 10:36 Sodium 146 mmol/L (137-145) H 05/31/18 06:35 Potassium 4.4 mmol/L (3.6-5.0) 05/31/18 06:35 Chloride 113.5 mmol/L (98-107) H 05/31/18 06:35 Carbon Dioxide 20 mmol/L (22-30) L 05/31/18 06:35 Anion Gap 17 mmol/L 05/31/18 06:35 BUN 40 mg/dL (9-20) H 05/31/18 06:35 Creatinine 2.0 mg/dL (0.8-1.5) H 05/31/18 06:35 Estimated GFR 39 ml/min 05/31/18 06:35 BUN/Creatinine Ratio 20 % 05/31/18 06:35 Glucose 156 mg/dL (75-100) H 05/31/18 06:35 POC Glucose 161 (70-105) H 05/31/18 04:28 Hemoglobin A1c 7.6 % (4-6) H 05/08/18 03:15 Osmolality 316 Mosm/kg 05/19/18 01:19 Lactic Acid 1.60 mmol/L (0.7-2.0) 05/07/18 13:21 Uric Acid 9.0 mg/dL (3.5-7.6) H 05/19/18 01:19 Calcium 7.2 mg/dL (8.4-10.2) L 05/31/18 06:35 Phosphorus 3.30 mg/dL (2.5-4.5) 05/27/18 14:35 Magnesium 1.90 mg/dL (1.7-2.3) 05/27/18 14:35 Total Bilirubin 0.20 mg/dL (0.1-1.2) 05/23/18 05:03 AST 10 units/L (5-40) 05/23/18 05:03 ALT < 5 units/L (7-56) L 05/23/18 05:03 Alkaline Phosphatase 50 units/L (35-129) 05/23/18 05:03 Total Protein 4.2 g/dL (6.3-8.2) L 05/23/18 05:03 Albumin 0.9 g/dL (3.9-5) L 05/23/18 05:03 Albumin/Globulin Ratio 0.3 % 05/23/18 05:03 Urine Color Flora (Yellow) 05/24/18 Unknown Urine Turbidity Turbid (Clear) 05/24/18 Unknown Urine pH 5.0 (5.0-7.0) 05/24/18 Unknown Ur Specific [place] 1.019 (1.003-1.030) 05/24/18 Unknown Urine Protein 100 mg/dl mg/dL (Negative) 05/24/18 Unknown Urine Glucose (UA) Neg mg/dL (Negative) 05/24/18 Unknown Urine Ketones Neg mg/dL (Negative) 05/24/18 Unknown Urine Blood Mod (Negative) 05/24/18 Unknown Urine Nitrite Neg (Negative) 05/24/18 Unknown Urine Bilirubin Neg (Negative) 05/24/18 Unknown Urine Urobilinogen < 2.0 mg/dL (<2.0) 05/24/18 Unknown Ur Leukocyte Esterase Lg (Negative) 05/24/18 Unknown Urine WBC (Auto) > 182.0 /HPF (0.0-6.0) H 05/24/18 Unknown Urine RBC (Auto) > 182.0 /HPF (0.0-6.0) 05/24/18 Unknown U Epithel Cells (Auto) < 1.0 /HPF (0-13.0) 05/07/18 12:20 Urine Bacteria (Auto) 1+ /HPF (Negative) 05/07/18 12:20 Urine Mucus Few /HPF 05/07/18 12:20 Urine Yeast (Budding) 3+ /HPF 05/24/18 Unknown Immunofix Electrophor see below 05/19/18 01:19 Influenza A (Rapid) Negative (Negative) 05/12/18 Unknown Influenza A (RT-PCR) Negative (Negative) 05/12/18 Unknown Influenza B (Rapid) Negative (Negative) 05/12/18 Unknown Influenza B (RT-PCR) Negative (Negative) 05/12/18 Unknown Blood Type O POSITIVE 05/22/18 10:08 Antibody Screen Negative 05/22/18 10:08 Crossmatch See Detail 05/22/18 10:08 Nutrition/Malnutrition Assess - Dietary Evaluation Nutrition/Malnutrition Findings: Nutrition Notes Start: 05/08/18 09:32 Freq: Status: Active Protocol: Document 05/30/18 14:02 VIVIENNE (Rec: 05/30/18 14:04 VIVIENNE SRW- [email or web address]) Nutrition Notes Initial or Follow up Brief Note Subjective/Other Information Per RN, pt had gastric residuals of 300ml this am; two doses of Reglan administered Nutrition Intervention Follow-Up By: 06/01/18 Additional Comments F/U: bolus TF tolerance
--- NOTE | 2018-05-31 10:56 | Progress Note ---
Subjective Principal diagnosis: PEG Interval history: Patient was seen today for follow-up on multiple renal related issues Events of this hospitalization noted Patient's daughter is at bedside Resting comfortably Renal function stable Vitals labs intake output medications were reviewed Social history: Reviewed Allergies: Reviewed Family history: Reviewed Physical examination HEENT: Oral mucosa moist no pallor or icterus Neck: Supple no JVD Chest: Clear to auscultation anteriorly CVS: Regular rate and rhythm S1 and S2 heard Abdomen: Soft nontender no suprapubic masses no organomegaly appreciable Extremity: Approximately 2 eripheral edema Musculoskeletal: No joint effusion noted in knees and ankle Neurological: Alert awake Dermatology: No petechial rashes Psychiatry: No evidence of any agitation and aggression noted Assessment and plan Renal failure: Creatinine is currently stable at 2.0 bicarbonate 20 sodium 146 Judicious diuretics, may need to hold for now, will discontinue Lasix and follow Patient does have chronic edema both lower extremity, this is multifactorial in etiology educated the patient's family that his prognosis is very poor overall as well as from renal standpoint Some of this is also resulting from third spacing of fluid hypernatremia: Gets worse when he is given more diuretic, Patient may need to go to a rehabilitation facility/[facility] Phosphorus magnesium normal on 05/27/2089 Free water boluses as required, strict intake and output monitoring Obstructive uropathy: Patient will need to follow-up with urology Overall prognosis appears to be limited due to age and multiple comorbidities We'll continue to follow and make recommendation from renal standpoint Objective - Vital Signs Vital signs: Vital Signs - 12hr 05/31/18 05/31/18 01:52 09:27 Temperature 97.7 F Pulse Rate 135 H Respiratory 20 Rate Blood Pressure 123/68 O2 Sat by Pulse 96 96 Oximetry - Lab 05/30/18 15:15 05/31/18 18:28 Most recent lab results Calcium 7.2 mg/dL (8.4-10.2) L 05/31/18 06:35 Phosphorus 3.30 mg/dL (2.5-4.5) 05/27/18 14:35 Magnesium 1.90 mg/dL (1.7-2.3) 05/27/18 14:35 Medications & Allergies - Medications Allergies/Adverse Reactions: Allergies Penicillins Allergy (Verified 04/11/18 16:00) Unknown Home Medications: Home Medications Medication Instructions Recorded Confirmed Last Taken Type Clopidogrel Bisulfate [Plavix] 75 mg PO DAILY #0 09/21/17 05/07/18 04/24/18 12:00 History Famotidine [Pepcid] 20 mg PO DAILY #0 09/21/17 05/07/18 04/24/18 History 20mg Simvastatin 40 mg PO HS 09/21/17 05/07/18 04/24/18 08:00 History 20 mg Sucralfate [Carafate] 1 gram PO BID #0 09/21/17 05/07/18 04/24/18 12:00 History 1 gm Ferrous Sulfate [Feosol 325 MG tab] 325 mg PO BID #60 tablet 05/04/18 05/07/18 Unknown Rx Active Medications: Generic Name Dose Route Start Last Admin Trade Name Freq PRN Reason Stop Dose Admin Acetaminophen 650 mg 05/27/18 07:30 05/29/18 09:35 Tylenol FEEDTUBE 650 mg Q4H PRN Administration Pain MILD(1-3)/Fever >100.5/MACIAS Albuterol 2.5 mg 05/10/18 15:59 Proventil IH Q4HRT PRN Shortness Of Breath Lipase/Protease/Amylase 1 each 05/26/18 16:[address] 10,500 Unit FEEDTUBE PRN PRN For Clogged Feeding Tube Bisacodyl 10 mg 05/16/18 13:02 05/16/18 13:54 Dulcolax HI 10 mg QDAY PRN Administration Constipation Calcium Carbonate/Glycine 1,250 mg 05/24/18 10:00 05/30/18 22:01 Calcium Carbonate FEEDTUBE 1,250 mg BID FREDI Administration Dextrose 50 ml 05/19/18 05:05 D50w (25gm) Syringe IV PRN PRN Hypoglycemia Ferrous Sulfate 308 mg 05/27/18 10:00 05/30/18 22:00 Ferrous Sulfate FEEDTUBE 308 mg BID FREDI Administration Furosemide 80 mg 05/29/18 13:00 05/30/18 09:59 Lasix PO 80 mg QDAY FREDI Administration Hydromorphone HCl 0.5 mg 05/08/18 02:22 Dilaudid IV Q3H PRN Pain , Severe (7-10) Dextrose 1,000 mls @ 150 mls/hr 05/27/18 16:00 05/28/18 02:51 D5w IV 125 mls/hr DIRECT FREDI Administration Insulin Human Lispro 0 unit 05/25/18 13:00 05/31/18 05:58 Humalog SUB-Q 2 unit Q6HR FREDI Administration Protocol Lansoprazole 30 mg 05/23/18 10:00 05/30/18 10:00 Prevacid Solutab FEEDTUBE 30 mg QDAY FREDI Administration Metoclopramide HCl 5 mg 05/27/18 11:30 05/31/18 08:40 Reglan FEEDTUBE 5 mg ACHS FREDI Administration Ondansetron HCl 4 mg 05/08/18 02:22 Zofran IV Q8H PRN Nausea And Vomiting Oxycodone/Acetaminophen 1 tab 05/27/18 07:30 Percocet 5/325 FEEDTUBE Q6H PRN Pain, Moderate (4-6) Pravastatin Sodium 80 mg 05/27/18 22:00 05/30/18 21:50 Pravachol FEEDTUBE 80 mg QHS FREDI Administration Simple Syrup 15 ml 05/26/18 16:21 Simple Syrup FEEDTUBE PRN PRN Hypoglycemia Simple Syrup 30 ml 05/28/18 08:36 Simple Syrup FEEDTUBE PRN PRN Hypoglycemia Sodium Bicarbonate 325 mg 05/26/18 16:21 Sodium Bicarbonate FEEDTUBE PRN PRN For Clogged Feeding Tube Sodium Bicarbonate 1,300 mg 05/29/18 14:00 05/30/18 21:50 Sodium Bicarbonate PO 1,300 mg BID FREDI Administration Sodium Chloride 10 ml 05/08/18 10:00 05/30/18 22:01 Sodium Chloride Flush Syringe 10 Ml IV Not Given BID FREDI Sodium Chloride 10 ml 05/08/18 02:22 05/08/18 03:56 Sodium Chloride Flush Syringe 10 Ml IV 10 ml PRN PRN Administration LINE FLUSH Sucralfate 1 gm 05/27/18 10:00 05/30/18 22:00 Carafate FEEDTUBE 1 gm BID FREDI Administration
[2018-05-31] MEDS: SODIUM BICARBONATE PO SCH ×2 (11:07→21:30)
[2018-05-31] MEDS: CARAFATE FEEDTUBE SCH ×2 (11:07→22:30)
[2018-05-31] MEDS: PREVACID SOLUTAB FEEDTUBE SCH (11:07)
[2018-05-31] MEDS: CALCIUM CARBONATE FEEDTUBE SCH ×2 (11:07→21:29)
[2018-05-31] MEDS: FERROUS SULFATE FEEDTUBE SCH ×2 (11:07→21:29)
[2018-05-31] MEDS: SODIUM CHLORIDE FLUSH SYRINGE 10 ML IV SCH ×2 (11:08→23:45)
[2018-05-31] MEDS: LASIX PO SCH (12:14)
[2018-05-31] MEDS ORDERED: IMODIUM PO PRN (15:17)
[2018-05-31] MEDS: PRAVACHOL FEEDTUBE SCH (21:39)
[2018-06-01] MEDS: HumaLOG SUB-Q SCH ×4 (00:44→17:50)
[2018-06-01] MEDS: TYLENOL FEEDTUBE PRN (08:20)
[2018-06-01] MEDS: REGLAN FEEDTUBE SCH ×4 (08:20→23:31)
--- NOTE | 2018-06-01 09:07 | Progress Note ---
Subjective Principal diagnosis: PEG Interval history: Patient was seen today for follow-up on multiple renal related issues Patient is noted to be febrile mild tachycardia blood pressure on the low side Chronically ill male laying in bed Vitals labs intake output medications were reviewed Social history: Reviewed Allergies: Reviewed Family history: Reviewed Physical examination HEENT: Oral mucosa moist no pallor or icterus Neck: Supple no JVD Chest: Clear to auscultation anteriorly CVS: Regular rate and rhythm S1 and S2 heard Abdomen: Soft nontender no suprapubic masses no organomegaly appreciable Extremity: Approximately 2 plus peripheral edema Musculoskeletal: No joint effusion noted in knees and ankle Neurological: Alert awake Dermatology: No petechial rashes Psychiatry: No evidence of any agitation and aggression noted Assessment and plan Acute kidney injury in a patient with multiple risk factor for chronic kidney disease, creatinine is currently relatively stable for last 4-5 days Patient is developing fever with tachycardia, rule out sepsis, no further diuretic at this point, may need blood culture, follow-up Anemia currently hemoglobin is around 7.7 platelet count normal Hyponatremia requires follow-up Metabolic acidosis requires follow-up, follow-up labs periodically Urine culture showed Jennifer albicans blood culture was negative for 5 days as of April 2018 Obstructive uropathy: Patient will need to follow-up with urology Had a long discussion with patient and as well as his daughter explained them that patient's prognosis is very poor with multiple comorbidities advanced age and declining health status, he is not a suitable candidate for dialysis. does understand well that is expected prognosis and mortality risk is high. Also discussed with Dr. Scruggs in made her aware about my conversation with patient's We'll continue to follow and make recommendation from renal standpoint Objective - Vital Signs Vital signs: Vital Signs - 12hr 06/01/18 06/01/18 02:36 07:34 Temperature 100.3 F H 100.0 F H Pulse Rate 135 H 121 H Respiratory 20 22 Rate Blood Pressure 115/56 98/45 O2 Sat by Pulse 97 94 Oximetry - Lab 06/01/18 09:25 06/01/18 09:25 Most recent lab results Calcium 7.2 mg/dL (8.4-10.2) L 05/31/18 06:35 Phosphorus 3.30 mg/dL (2.5-4.5) 05/27/18 14:35 Magnesium 1.90 mg/dL (1.7-2.3) 05/27/18 14:35 Medications & Allergies - Medications Allergies/Adverse Reactions: Allergies Penicillins Allergy (Verified 04/11/18 16:00) Unknown Home Medications: Home Medications Medication Instructions Recorded Confirmed Last Taken Type Clopidogrel Bisulfate [Plavix] 75 mg PO DAILY #0 09/21/17 05/07/18 04/24/18 12:00 History Famotidine [Pepcid] 20 mg PO DAILY #0 09/21/17 05/07/18 04/24/18 History 20mg Simvastatin 40 mg PO HS 09/21/17 05/07/18 04/24/18 08:00 History 20 mg Sucralfate [Carafate] 1 gram PO BID #0 09/21/17 05/07/18 04/24/18 12:00 History 1 gm Ferrous Sulfate [Feosol 325 MG tab] 325 mg PO BID #60 tablet 05/04/18 05/07/18 Unknown Rx Active Medications: Generic Name Dose Route Start Last Admin Trade Name Freq PRN Reason Stop Dose Admin Acetaminophen 650 mg 05/27/18 07:30 06/01/18 08:20 Tylenol FEEDTUBE 650 mg Q4H PRN Administration Pain MILD(1-3)/Fever >100.5/MACIAS Albuterol 2.5 mg 05/10/18 15:59 Proventil IH Q4HRT PRN Shortness Of Breath Lipase/Protease/Amylase 1 each 05/26/18 16:21 Pancreaze 10,500 Unit FEEDTUBE PRN PRN For Clogged Feeding Tube Bisacodyl 10 mg 05/16/18 13:02 05/16/18 13:54 Dulcolax DE 10 mg QDAY PRN Administration Constipation Calcium Carbonate/Glycine 1,250 mg 05/24/18 10:00 05/31/18 21:29 Calcium Carbonate FEEDTUBE 1,250 mg BID FREDI Administration Dextrose 50 ml 05/19/18 05:05 D50w (25gm) Syringe IV PRN PRN Hypoglycemia Ferrous Sulfate 308 mg 05/27/18 10:00 05/31/18 21:29 Ferrous Sulfate FEEDTUBE 308 mg BID FREDI Administration Hydromorphone HCl 0.5 mg 05/08/18 02:22 Dilaudid IV Q3H PRN Pain , Severe (7-10) Dextrose 1,000 mls @ 150 mls/hr 05/27/18 16:00 05/28/18 02:51 D5w IV 125 mls/hr DIRECT FREDI Administration Insulin Human Lispro 0 unit 05/25/18 13:00 06/01/18 06:35 Humalog SUB-Q 2 unit Q6HR FREDI Administration Protocol Lansoprazole 30 mg 05/23/18 10:00 05/31/18 11:07 Prevacid Solutab FEEDTUBE 30 mg QDAY FREDI Administration Loperamide HCl 2 mg 05/31/18 15:17 05/31/18 17:14 Imodium PO 2 mg Q2H PRN Administration Diarrhea Metoclopramide HCl 5 mg 05/27/18 11:30 06/01/18 08:20 Reglan FEEDTUBE 5 mg ACHS FREDI Administration Ondansetron HCl 4 mg 05/08/18 02:22 Zofran IV Q8H PRN Nausea And Vomiting Oxycodone/Acetaminophen 1 tab 05/27/18 07:30 Percocet 5/325 FEEDTUBE Q6H PRN Pain, Moderate (4-6) Pravastatin Sodium 80 mg 05/27/18 22:00 05/31/18 21:39 Pravachol FEEDTUBE 80 mg QHS FREDI Administration Simple Syrup 15 ml 05/26/18 16:21 Simple Syrup FEEDTUBE PRN PRN Hypoglycemia Simple Syrup 30 ml 05/28/18 08:36 Simple Syrup FEEDTUBE PRN PRN Hypoglycemia Sodium Bicarbonate 325 mg 05/26/18 16:21 Sodium Bicarbonate FEEDTUBE PRN PRN For Clogged Feeding Tube Sodium Bicarbonate 1,300 mg 05/29/18 14:00 05/31/18 21:30 Sodium Bicarbonate PO 1,300 mg BID FREDI Administration Sodium Chloride 10 ml 05/08/18 10:00 05/31/18 23:45 Sodium Chloride Flush Syringe 10 Ml IV Not Given BID FREDI Sodium Chloride 10 ml 05/08/18 02:22 05/08/18 03:56 Sodium Chloride Flush Syringe 10 Ml IV 10 ml PRN PRN Administration LINE FLUSH Sucralfate 1 gm 05/27/18 10:00 05/31/18 22:30 Carafate FEEDTUBE 1 gm BID FREDI Administration
[2018-06-01 09:41] LABS: Hematocrit 23.8 % (35.5-45.6); Hemoglobin 7.4 gm/dl (11.8-15.2); Mean Corpuscular HGB Conc 31 % (32-34); Mean Corpuscular Volume 75 fl (84-94); Platelet Count 221 K/mm3 (140-440); Red Blood Count 3.18 M/mm3 (3.65-5.03)
[2018-06-01 09:46] LABS: Red Cell Distribution Width 25.8 % (13.2-15.2)
[2018-06-01 10:06] LABS: Calcium 7.3 mg/dL (8.4-10.2)
[2018-06-01 10:10] LABS: Alanine Aminotransferase 8 units/L (7-56); Albumin 1.3 g/dL (3.9-5)
[2018-06-01] MEDS: CALCIUM CARBONATE FEEDTUBE SCH (10:12)
[2018-06-01] MEDS: PREVACID SOLUTAB FEEDTUBE SCH (10:12)
[2018-06-01] MEDS: CARAFATE FEEDTUBE SCH ×2 (10:12→23:32)
[2018-06-01] MEDS: SODIUM BICARBONATE PO SCH ×2 (10:12→23:34)
[2018-06-01] MEDS: SODIUM CHLORIDE FLUSH SYRINGE 10 ML IV SCH ×2 (10:13→23:48)
[2018-06-01 10:15] LABS: Bilirubin,Direct < 0.2 mg/dL (0-0.2)
[2018-06-01] MEDS: FERROUS SULFATE FEEDTUBE SCH ×2 (10:17→23:33)
--- NOTE | 2018-06-01 10:54 | Progress Note ---
Assessment and Plan Assessment and plan: Very frail 78-year-old male patient was admitted with UTI, recurrent aspiration pneumonia, dysphagia, status post PEG, planning to discharge home with home health, family refused rehabilitation/SNF placement, Today pt developed low-grade fever, tachycardia, hypotension today, chest x-ray, new right lower lobe infiltrate, did not start antibiotics ,reconsult [email or web address] Family deciding CODE STATUS/treatment plan, full code at this point. --Low-grade fever/tachycardia Antipyretics, IV fluids, supportive care . Chest x-ray, If fever persists, check blood cultures if needed --Hypotension: Cautious ,Gentle hydration, --Sinus tachycardia; heart rate ranging between 110 to 120s No symptoms, advised low dose metoprolol, the daughter at the bedside Refused the medication, --Left upper extremity swelling; significantly improved Elevate the limb, venous Doppler negative for DVT, superficial thrombophlebitis --Oropharngeal dysphagia; s/p Laparoscopic PEG placement per surgery Bolus tube feeds tolerated by the patient, Reglan as needed 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 Continuous Durán recommended by urology --DEVIN, likely vasomotor nephropathy, mild improvement Nephrology following, gentle hydration, avoid nephrotoxins --Chronic left hydronephrosis, atrophic left kidney Extensively evaluated by urology during previous admission --Hyperglycemia/type 2 diabetes mellitus Accu-Chek sliding scale coverage and ADA diet, insulin as needed --Acute metabolic encephalopathy; present on admission Significantly improved --Severe protein calorie malnutrition PEG feeds per protocol,nutrition supplements --H/O CVA with right-sided hemiparesis, supportive care --Chronic urinary retention; urology rec, cont durán catheter --Physical deconditioning; PT/OT , recommend acute/subacute rehabilitation Patient's family refused, --Discharge planning; home with home health as requested by family when Medically stable --DVT prophylaxis with SCD No Pharmacologic anticoagulation due to chronic anemia with high risk for bleed --Full code Patient's condition treatment plan, poor prognosis discussed in detail with the patient's and the daughter again today at the bedside, and the goals of treatment and CODE STATUS readdressed,, Patient's said she will discuss with all the other family members and inform us. If the family doesn't decide May need a family meeting to address the above i ssues Family refused rehabilitation/SNF placement, Possible discharge in 1-2 days home with home health is stable Disposition; new infiltrates right lower lobe today/recurrent aspiration pneumonia/reconsult ID for the need and choice of antibiotics History Interval history: Patient seen and examined this morning medical records reviewed Patient looks slightly better, low-grade fever and tachycardia Tolerating to feeds Vital signs reviewed Patient's daughter and at the bedside Hospitalist Physical - Constitutional Vitals: Temp Pulse Resp BP Pulse Ox 100.0 F H 121 H 22 98/45 94 06/01/18 07:34 06/01/18 07:34 06/01/18 07:34 06/01/18 07:34 06/01/18 07:34 General appearance: Present: no acute distress, well-nourished, obese, other (low-grade fever) - EENT Eyes: Present: PERRL, EOM intact - Neck Neck: Present: supple, normal ROM - Respiratory Respiratory effort: normal Respiratory: bilateral: diminished, negative: rales, rhonchi, wheezing - Cardiovascular Rhythm: regular Heart Sounds: Present: S1 & S2 - Extremities Extremities: no ischemia Extremity abnormal: edema (bilateral upper extremity edema) - Abdominal General gastrointestinal: soft, non-tender, non-distended, normal bowel sounds, other (PEG tube in place) - Integumentary Integumentary: Present: clear, warm - Psychiatric Psychiatric: other (confused, minimal communication) - Neurologic Neurologic: other (residual weakness right-sided) Results - Labs CBC & Chem 7: 06/01/18 09:25 06/01/18 09:25 Labs: Laboratory Last Values WBC 10.3 K/mm3 (4.5-11.0) 06/01/18 09:25 RBC 3.18 M/mm3 (3.65-5.03) L 06/01/18 09:25 Hgb 7.4 gm/dl (11.8-15.2) L 06/01/18 09:25 Hct 23.8 % (35.5-45.6) L 06/01/18 09:25 MCV 75 fl (84-94) L 06/01/18 09:25 MCH 23 pg (28-32) L 06/01/18 09:25 MCHC 31 % (32-34) L 06/01/18 09:25 RDW 25.8 % (13.2-15.2) H 06/01/18 09:25 Plt Count 221 K/mm3 (140-440) 06/01/18 09:25 Lymph % (Auto) Log Sorter 05/24/18 10:59 [place] % (Auto) Log Sorter 05/24/18 10:59 Eos % (Auto) Log Sorter 05/24/18 10:59 Baso % (Auto) Log Sorter 05/24/18 10:59 Lymph # Log Sorter 05/24/18 10:59 [place] # Log Sorter 05/24/18 10:59 Eos # Log Sorter 05/24/18 10:59 Baso # Log Sorter 05/24/18 10:59 Add Manual Diff Complete 05/30/18 15:15 Total Counted 100 05/30/18 15:15 Seg Neutrophils % Log Sorter 05/24/18 10:59 Seg Neuts % (Manual) 91.0 % (40.0-70.0) H 05/30/18 15:15 Band Neutrophils % 4.0 % 05/30/18 15:15 Lymphocytes % (Manual) 2.0 % (13.4-35.0) L 05/30/18 15:15 Reactive Lymphs % (Man) 0 % 05/30/18 15:15 Monocytes % (Manual) 2.0 % (0.0-7.3) 05/30/18 15:15 Eosinophils % (Manual) 1.0 % (0.0-4.3) 05/30/18 15:15 Basophils % (Manual) 0 % (0.0-1.8) 05/30/18 15:15 Metamyelocytes % 0 % 05/30/18 15:15 Myelocytes % 0 % 05/30/18 15:15 Promyelocytes % 0 % 05/30/18 15:15 Blast Cells % 0 % 05/30/18 15:15 Nucleated RBC % Not Reportable 05/30/18 15:15 Seg Neutrophils # Log Sorter 05/24/18 10:59 Seg Neutrophils # Man 7.5 K/mm3 (1.8-7.7) 05/30/18 15:15 Band Neutrophils # 0.3 K/mm3 05/30/18 15:15 Lymphocytes # (Manual) 0.2 K/mm3 (1.2-5.4) L 05/30/18 15:15 Abs React Lymphs (Man) 0.0 K/mm3 05/30/18 15:15 Monocytes # (Manual) 0.2 K/mm3 (0.0-0.8) 05/30/18 15:15 Eosinophils # (Manual) 0.1 K/mm3 (0.0-0.4) 05/30/18 15:15 Basophils # (Manual) 0.0 K/mm3 (0.0-0.1) 05/30/18 15:15 Metamyelocytes # 0.0 K/mm3 05/30/18 15:15 Myelocytes # 0.0 K/mm3 05/30/18 15:15 Promyelocytes # 0.0 K/mm3 05/30/18 15:15 Blast Cells # 0.0 K/mm3 05/30/18 15:15 WBC Morphology Not Reportable 05/30/18 15:15 Hypersegmented Neuts Not Reportable 05/30/18 15:15 Hyposegmented Neuts Not Reportable 05/30/18 15:15 Hypogranular Neuts Not Reportable 05/30/18 15:15 Smudge Cells Not Reportable 05/30/18 15:15 Toxic Granulation Not Reportable 05/30/18 15:15 Toxic Vacuolation Not Reportable 05/30/18 15:15 Dohle Bodies Not Reportable 05/30/18 15:15 Pelger-Huet Anomaly Not Reportable 05/30/18 15:15 Alba Rods Not Reportable 05/30/18 15:15 Platelet Estimate Consistent w auto 05/30/18 15:15 Clumped Platelets Not Reportable 05/30/18 15:15 Plt Clumps, EDTA Not Reportable 05/30/18 15:15 Large Platelets Few 05/30/18 15:15 Giant Platelets Few 05/30/18 15:15 Platelet Satelliting Not Reportable 05/30/18 15:15 Plt Morphology Comment Not Reportable 05/30/18 15:15 RBC Morphology Not Reportable 05/30/18 15:15 Dimorphic RBCs Not Reportable 05/30/18 15:15 Polychromasia Not Reportable 05/30/18 15:15 Hypochromasia 2+ 05/30/18 15:15 Poikilocytosis 1+ 05/30/18 15:15 Anisocytosis 2+ 05/30/18 15:15 Microcytosis 1+ 05/30/18 15:15 Macrocytosis Not Reportable 05/30/18 15:15 Spherocytes Few 05/30/18 15:15 Pappenheimer Bodies Not Reportable 05/30/18 15:15 Sickle Cells Not Reportable 05/30/18 15:15 Target Cells Few 05/30/18 15:15 Tear Drop Cells Not Reportable 05/30/18 15:15 Ovalocytes Not Reportable 05/30/18 15:15 Helmet Cells Not Reportable 05/30/18 15:15 Mccoy-Selman Bodies Not Reportable 05/30/18 15:15 [place] Rings Not Reportable 05/30/18 15:15 [place] Cells Not Reportable 05/30/18 15:15 Bite Cells Not Reportable 05/30/18 15:15 Crenated Cell Not Reportable 05/30/18 15:15 Elliptocytes Not Reportable 05/30/18 15:15 Acanthocytes (Spur) Not Reportable 05/30/18 15:15 Rouleaux Not Reportable 05/30/18 15:15 Hemoglobin C Crystals Not Reportable 05/30/18 15:15 Schistocytes Not Reportable 05/30/18 15:15 Malaria parasites Not Reportable 05/30/18 15:15 James Bodies Not Reportable 05/30/18 15:15 Hem Pathologist Commnt No 05/30/18 15:15 PT 16.4 Sec. (12.2-14.9) H 05/26/18 05:15 INR 1.24 (0.87-1.13) H 05/26/18 05:15 APTT 30.3 Sec. (24.2-36.6) 05/07/18 10:37 POC ABG pH 7.372 (7.35-7.45) 05/14/18 10:36 POC ABG pCO2 31.8 (35-45) L 05/14/18 10:36 POC ABG pO2 83 (80-105) 05/14/18 10:36 POC ABG HCO3 18.5 05/14/18 10:36 POC ABG Total CO2 19 05/14/18 10:36 POC ABG O2 Sat 96 05/14/18 10:36 POC ABG Base Excess -7 05/14/18 10:36 FiO2 21 % 05/14/18 10:36 Sodium 145 mmol/L (137-145) 06/01/18 09:25 Potassium 4.5 mmol/L (3.6-5.0) 06/01/18 09:25 Chloride 116.8 mmol/L (98-107) H 06/01/18 09:25 Carbon Dioxide 23 mmol/L (22-30) 06/01/18 09:25 Anion Gap 10 mmol/L 06/01/18 09:25 BUN 39 mg/dL (9-20) H 06/01/18 09:25 Creatinine 1.9 mg/dL (0.8-1.5) H 06/01/18 09:25 Estimated GFR 41 ml/min 06/01/18 09:25 BUN/Creatinine Ratio 21 % 06/01/18 09:25 Glucose 152 mg/dL (75-100) H 06/01/18 09:25 POC Glucose 241 (70-105) H 05/31/18 17:19 Hemoglobin A1c 7.6 % (4-6) H 05/08/18 03:15 Osmolality 316 Mosm/kg 05/19/18 01:19 Lactic Acid 1.60 mmol/L (0.7-2.0) 05/07/18 13:21 Uric Acid 9.0 mg/dL (3.5-7.6) H 05/19/18 01:19 Calcium 7.3 mg/dL (8.4-10.2) L 06/01/18 09:25 Phosphorus 3.30 mg/dL (2.5-4.5) 05/27/18 14:35 Magnesium 1.90 mg/dL (1.7-2.3) 05/27/18 14:35 Total Bilirubin 0.20 mg/dL (0.1-1.2) 06/01/18 09:25 Direct Bilirubin < 0.2 mg/dL (0-0.2) 06/01/18 09:25 Indirect Bilirubin 0.0 mg/dL 06/01/18 09:25 AST 26 units/L (5-40) 06/01/18 09:25 ALT 8 units/L (7-56) 06/01/18 09:25 Alkaline Phosphatase 128 units/L (35-129) 06/01/18 09:25 Total Protein 5.8 g/dL (6.3-8.2) L 06/01/18 09:25 Albumin 1.3 g/dL (3.9-5) L 06/01/18 09:25 Albumin/Globulin Ratio 0.3 % 06/01/18 09:25 Urine Color Flora (Yellow) 05/24/18 Unknown Urine Turbidity Turbid (Clear) 05/24/18 Unknown Urine pH 5.0 (5.0-7.0) 05/24/18 Unknown Ur Specific [place] 1.019 (1.003-1.030) 05/24/18 Unknown Urine Protein 100 mg/dl mg/dL (Negative) 05/24/18 Unknown Urine Glucose (UA) Neg mg/dL (Negative) 05/24/18 Unknown Urine Ketones Neg mg/dL (Negative) 05/24/18 Unknown Urine Blood Mod (Negative) 05/24/18 Unknown Urine Nitrite Neg (Negative) 05/24/18 Unknown Urine Bilirubin Neg (Negative) 05/24/18 Unknown Urine Urobilinogen < 2.0 mg/dL (<2.0) 05/24/18 Unknown Ur Leukocyte Esterase Lg (Negative) 05/24/18 Unknown Urine WBC (Auto) > 182.0 /HPF (0.0-6.0) H 05/24/18 Unknown Urine RBC (Auto) > 182.0 /HPF (0.0-6.0) 05/24/18 Unknown U Epithel Cells (Auto) < 1.0 /HPF (0-13.0) 05/07/18 12:20 Urine Bacteria (Auto) 1+ /HPF (Negative) 05/07/18 12:20 Urine Mucus Few /HPF 05/07/18 12:20 Urine Yeast (Budding) 3+ /HPF 05/24/18 Unknown Immunofix Electrophor see below 05/19/18 01:19 Influenza A (Rapid) Negative (Negative) 05/12/18 Unknown Influenza A (RT-PCR) Negative (Negative) 05/12/18 Unknown Influenza B (Rapid) Negative (Negative) 05/12/18 Unknown Influenza B (RT-PCR) Negative (Negative) 05/12/18 Unknown Blood Type O POSITIVE 05/22/18 10:08 Antibody Screen Negative 05/22/18 10:08 Crossmatch See Detail 05/22/18 10:08 Nutrition/Malnutrition Assess - Dietary Evaluation Nutrition/Malnutrition Findings: Nutrition Notes Start: 05/08/18 09:32 Freq: Status: Active Protocol: Document 05/30/18 14:02 VIVIENNE (Rec: 05/30/18 14:04 VIVIENNE [email or web address]) Nutrition Notes Initial or Follow up Brief Note Subjective/Other Information Per RN, pt had gastric residuals of 300ml this am; two doses of Reglan administered Nutrition Intervention Follow-Up By: 06/01/18 Additional Comments F/U: bolus TF tolerance
[2018-06-01 11:44] LABS: Band Neutrophils # (Manual) 0.3 K/mm3; Basophils % (Manual) 0 % (0.0-1.8); Eosinophils % (Manual) 0 % (0.0-4.3); Total Cells Counted 100
[2018-06-01 11:45] LABS: Anisocytosis 2+; Hypochromasia 1+; Platelet Estimate Consistent w Auto
[2018-06-01] MEDS ORDERED: NACL 0.9% 1000 ML 1,000 ML IV SCH (13:00)
--- NOTE | 2018-06-01 14:07 | XRay Report ---
AP CHEST: HISTORY: Fever Compared to 05/19/18. Heart size and pulmonary vascularity remain within normal limits. Small right pleural effusion and possible infiltrate at the right lung base is suggested on today's exam. No pneumothorax. IMPRESSION: Trace right pleural effusion. Possible infiltrate at the right lung base.
[2018-06-01] MEDS ORDERED: SODIUM BICARBONATE FEEDTUBE PRN (14:56)
[2018-06-01] MEDS ORDERED: PANCREAZE DR 10,500 UNIT FEEDTUBE PRN (14:56)
[2018-06-01] MEDS ORDERED: SIMPLE SYRUP FEEDTUBE PRN ×2 (14:56)
[2018-06-01] MEDS: PRAVACHOL FEEDTUBE SCH (23:33)
[2018-06-02] MEDS: HumaLOG SUB-Q SCH ×3 (05:56→18:54)
--- NOTE | 2018-06-02 09:00 | Progress Note ---
Subjective Principal diagnosis: PEG Interval history: Patient was seen today for follow-up on multiple renal related issues He is doing about the same, blood pressure is relatively stable met with patient and daughter with home by met yesterday They do have better understanding about patient's health now They understand that his health is deter Vitals labs intake output medications were reviewed Social history: Reviewed Allergies: Reviewed Family history: Reviewed Physical examination HEENT: Oral mucosa moist no pallor or icterus Neck: Supple no JVD Chest: Clear to auscultation anteriorly CVS: Regular rate and rhythm S1 and S2 heard Abdomen: Soft nontender no suprapubic masses no organomegaly appreciable Extremity: Approximately 2 plus peripheral edema Musculoskeletal: No joint effusion noted in knees and ankle Neurological: Alert awake Dermatology: No petechial rashes Psychiatry: No evidence of any agitation and aggression noted Assessment and plan Acute kidney injury in a patient with multiple risk factor for chronic kidney disease, creatinine is currently relatively stable for last 4-5 days, with diuresis patient's creatinine continues to get worse, he still has approximately 2+ edema He is not a suitable candidate for hemodialysis, family does understand that his health is not good due to age and multiple comorbidities There has been a progressive decline in his health overall Patient does need follow-up lab today, noted to be afebrile hemodynamically still fragile but better Anemia currently hemoglobin is around 7.7 platelet count normal, will need follow-up Hyponatremia requires follow-up Metabolic acidosis requires follow-up Overall quality of life is very poor patient is very ill this has been explained to the patient's family at length Urine culture showed Jennifer albicans blood culture was negative for 5 days as of April 2018 Obstructive uropathy: Patient will need to follow-up with urology prognosis very poor, mortality risk high family aware We'll continue to follow and make recommendation from renal standpoint Objective - Vital Signs Vital signs: Vital Signs - 12hr 06/02/18 06/02/18 06/02/18 03:12 03:14 07:51 Temperature 99.2 F 98.7 F Pulse Rate 121 H 72 Respiratory 22 22 Rate Blood Pressure 93/54 107/57 O2 Sat by Pulse 97 82 L Oximetry - Lab 06/01/18 09:25 06/02/18 09:44 Most recent lab results Calcium 7.3 mg/dL (8.4-10.2) L 06/01/18 09:25 Phosphorus 3.30 mg/dL (2.5-4.5) 05/27/18 14:35 Magnesium 1.90 mg/dL (1.7-2.3) 05/27/18 14:35 Medications & Allergies - Medications Allergies/Adverse Reactions: Allergies Penicillins Allergy (Verified 04/11/18 16:00) Unknown Home Medications: Home Medications Medication Instructions Recorded Confirmed Last Taken Type Clopidogrel Bisulfate [Plavix] 75 mg PO DAILY #0 09/21/17 05/07/18 04/24/18 12:00 History Famotidine [Pepcid] 20 mg PO DAILY #0 09/21/17 05/07/18 04/24/18 History 20mg Simvastatin 40 mg PO HS 09/21/17 05/07/18 04/24/18 08:00 History 20 mg Sucralfate [Carafate] 1 gram PO BID #0 09/21/17 05/07/18 04/24/18 12:00 History 1 gm Ferrous Sulfate [Feosol 325 MG tab] 325 mg PO BID #60 tablet 05/04/18 05/07/18 Unknown Rx Active Medications: Generic Name Dose Route Start Last Admin Trade Name Freq PRN Reason Stop Dose Admin Acetaminophen 650 mg 05/27/18 07:30 06/01/18 08:20 Tylenol FEEDTUBE 650 mg Q4H PRN Administration Pain MILD(1-3)/Fever >100.5/MACIAS Albuterol 2.5 mg 05/10/18 15:59 Proventil IH Q4HRT PRN Shortness Of Breath Lipase/Protease/Amylase 1 each 06/01/18 14:56 Pancreaze 10,500 Unit FEEDTUBE PRN PRN For Clogged Feeding Tube Bisacodyl 10 mg 05/16/18 13:02 05/16/18 13:54 Dulcolax UT 10 mg QDAY PRN Administration Constipation Calcium Carbonate/Glycine 1,250 mg 05/24/18 10:00 06/01/18 10:12 Calcium Carbonate FEEDTUBE 1,250 mg BID FREDI Administration Dextrose 50 ml 05/19/18 05:05 D50w (25gm) Syringe IV PRN PRN Hypoglycemia Ferrous Sulfate 308 mg 05/27/18 10:00 06/01/18 23:33 Ferrous Sulfate FEEDTUBE 308 mg BID FREDI Administration Hydromorphone HCl 0.5 mg 05/08/18 02:22 Dilaudid IV Q3H PRN Pain , Severe (7-10) Dextrose 1,000 mls @ 150 mls/hr 05/27/18 16:00 05/28/18 02:51 D5w IV 125 mls/hr DIRECT FREDI Administration Sodium Chloride 1,000 mls @ 42 mls/hr 06/01/18 13:00 06/01/18 15:15 Nacl 0.9% 1000 Ml IV 42 mls/hr DIRECT FREDI Administration Insulin Human Lispro 0 unit 05/25/18 13:00 06/02/18 05:56 Humalog SUB-Q 2 unit Q6HR FREDI Administration Protocol Lansoprazole 30 mg 05/23/18 10:00 06/01/18 10:12 Prevacid Solutab FEEDTUBE 30 mg QDAY FREDI Administration Loperamide HCl 2 mg 05/31/18 15:17 05/31/18 17:14 Imodium PO 2 mg Q2H PRN Administration Diarrhea Metoclopramide HCl 5 mg 05/27/18 11:30 06/01/18 23:31 Reglan FEEDTUBE 5 mg ACHS FREDI Administration Ondansetron HCl 4 mg 05/08/18 02:22 Zofran IV Q8H PRN Nausea And Vomiting Oxycodone/Acetaminophen 1 tab 05/27/18 07:30 Percocet 5/325 FEEDTUBE Q6H PRN Pain, Moderate (4-6) Pravastatin Sodium 80 mg 05/27/18 22:00 06/01/18 23:33 Pravachol FEEDTUBE 80 mg QHS FREDI Administration Simple Syrup 15 ml 05/26/18 16:21 Simple Syrup FEEDTUBE PRN PRN Hypoglycemia Simple Syrup 15 ml 06/01/18 14:56 Simple Syrup FEEDTUBE PRN PRN Hypoglycemia Simple Syrup 30 ml 06/01/18 14:56 Simple Syrup FEEDTUBE PRN PRN Hypoglycemia Sodium Bicarbonate 1,300 mg 05/29/18 14:00 06/01/18 23:34 Sodium Bicarbonate PO 1,300 mg BID FREDI Administration Sodium Bicarbonate 325 mg 06/01/18 14:56 Sodium Bicarbonate FEEDTUBE PRN PRN For Clogged Feeding Tube Sodium Chloride 10 ml 05/08/18 10:00 06/01/18 23:48 Sodium Chloride Flush Syringe 10 Ml IV 10 ml BID FREDI Administration Sodium Chloride 10 ml 05/08/18 02:22 05/08/18 03:56 Sodium Chloride Flush Syringe 10 Ml IV 10 ml PRN PRN Administration LINE FLUSH Sucralfate 1 gm 05/27/18 10:00 06/01/18 23:32 Carafate FEEDTUBE 1 gm BID FREDI Administration
[2018-06-02] MEDS: CALCIUM CARBONATE FEEDTUBE SCH ×3 (10:28→21:15)
[2018-06-02] MEDS: CARAFATE FEEDTUBE SCH ×2 (10:29→21:15)
[2018-06-02] MEDS: REGLAN FEEDTUBE SCH ×4 (10:29→21:16)
[2018-06-02] MEDS: SODIUM BICARBONATE PO SCH ×2 (10:30→21:16)
[2018-06-02] MEDS: FERROUS SULFATE FEEDTUBE SCH ×2 (10:30→21:16)
[2018-06-02] MEDS: PREVACID SOLUTAB FEEDTUBE SCH (10:30)
[2018-06-02] MEDS: SODIUM CHLORIDE FLUSH SYRINGE 10 ML IV SCH ×2 (10:32→22:07)
--- NOTE | 2018-06-02 10:32 | Progress Note ---
Assessment and Plan Assessment and plan: Very frail 78-year-old male patient was admitted with UTI, recurrent aspiration pneumonia, dysphagia, status post PEG, planning to discharge home with home health, family refused rehabilitation/SNF placement, -he developed fever, found to have R Chest PNA, completed abx for UTI and recurrent aspiration pna LUE swelling was noted , DUplex was negative for DVT, improved with elevation of extremity -Sp PEG for dysphagia -received 2 units [facility] for anemia -He also had acute kidney injury, vasomotor nephropathy, which improved with gentle hydration and avoidance of nephrotoxins -The patient has history of urinary retention, has had indwelling Durán since 04/25/2018, which has been kept in place -The patient has chronic left hydronephrosis and atrophic kidney, this has been extensively evaluated by urology in previous visits, who recommended no further management given that the kidney is atrophic and unlikely to recover without any intervention -The patient has received physical therapy for deconditioning -Rehabilitation was recommended, but the family would like to take him home. -The patient is hypernatremic today, discussed with the nurse, have discontinue normal saline, start dextrose, continue free water via peg Diagnosis Recurrent aspiration PNA Sepsis hypotension Sinus tachycardia UTI Dehydration Left upper extremity dependent edema Dysphasia Acute on chronic Acute kidney injury/results and nephropathy Chronic left hydronephrosis with atrophic kidney Persistent hyperglycemia due to type 2 diabetes --Acute metabolic encephalopathy; present on admission --Severe protein calorie malnutrition --H/O CVA with right-sided hemiparesis, supportive care --Chronic urinary retention; urology rec, cont durán catheter --Physical deconditioning; Hypernatremia History Interval history: The patient continues to be very confused, generalized weakness, decreased responsiveness No vomiting, no seizures, continues to be oxygen dependent Hospitalist Physical - Physical exam Narrative exam: General.: Appears chronically ill HEENT: Moist mucous membranes, extraocular muscles intact, no lymphadenopathy Neck: supple Cardiac: S1-S2 heard Lungs: Decreased air entry, crackles in bases Abdomen: soft , nontender, nondistended, bowel sounds positive Extremities: no edema clubbing or cyanosis Skin: no rash or lesions Neurologic: Confused, generalized weakness, moves extremities and opens eyes. Currently not verbal - Constitutional Vitals: Temp Pulse Resp BP Pulse Ox 98.7 F 72 22 107/57 82 L 06/02/18 07:51 06/02/18 07:51 06/02/18 07:51 06/02/18 07:51 06/02/18 07:51 General appearance: Present: no acute distress, well-nourished, obese, other (low-grade fever) Results - Labs CBC & Chem 7: 06/04/18 05:54 06/04/18 05:54 Labs: Laboratory Last Values WBC 10.3 K/mm3 (4.5-11.0) 06/01/18 09:25 RBC 3.18 M/mm3 (3.65-5.03) L 06/01/18 09:25 Hgb 7.4 gm/dl (11.8-15.2) L 06/01/18 09:25 Hct 23.8 % (35.5-45.6) L 06/01/18 09:25 MCV 75 fl (84-94) L 06/01/18 09:25 MCH 23 pg (28-32) L 06/01/18 09:25 MCHC 31 % (32-34) L 06/01/18 09:25 RDW 25.8 % (13.2-15.2) H 06/01/18 09:25 Plt Count 221 K/mm3 (140-440) 06/01/18 09:25 Lymph % (Auto) Ironing Pleater 05/24/18 10:59 Worth % (Auto) Ironing Pleater 05/24/18 10:59 Eos % (Auto) Ironing Pleater 05/24/18 10:59 Baso % (Auto) Ironing Pleater 05/24/18 10:59 Lymph # Ironing Pleater 05/24/18 10:59 Worth # Ironing Pleater 05/24/18 10:59 Eos # Ironing Pleater 05/24/18 10:59 Baso # Ironing Pleater 05/24/18 10:59 Add Manual Diff Complete 06/01/18 09:25 Total Counted 100 06/01/18 09:25 Seg Neutrophils % Ironing Pleater 05/24/18 10:59 Seg Neuts % (Manual) 94.0 % (40.0-70.0) H 06/01/18 09:25 Band Neutrophils % 3.0 % 06/01/18 09:25 Lymphocytes % (Manual) 2.0 % (13.4-35.0) L 06/01/18 09:25 Reactive Lymphs % (Man) 0 % 06/01/18 09:25 Monocytes % (Manual) 1.0 % (0.0-7.3) 06/01/18 09:25 Eosinophils % (Manual) 0 % (0.0-4.3) 06/01/18 09:25 Basophils % (Manual) 0 % (0.0-1.8) 06/01/18 09:25 Metamyelocytes % 0 % 06/01/18 09:25 Myelocytes % 0 % 06/01/18 09:25 Promyelocytes % 0 % 06/01/18 09:25 Blast Cells % 0 % 06/01/18 09:25 Nucleated RBC % Not Reportable 06/01/18 09:25 Seg Neutrophils # Ironing Pleater 05/24/18 10:59 Seg Neutrophils # Man 9.7 K/mm3 (1.8-7.7) H 06/01/18 09:25 Band Neutrophils # 0.3 K/mm3 06/01/18 09:25 Lymphocytes # (Manual) 0.2 K/mm3 (1.2-5.4) L 06/01/18 09:25 Abs React Lymphs (Man) 0.0 K/mm3 06/01/18 09:25 Monocytes # (Manual) 0.1 K/mm3 (0.0-0.8) 06/01/18 09:25 Eosinophils # (Manual) 0.0 K/mm3 (0.0-0.4) 06/01/18 09:25 Basophils # (Manual) 0.0 K/mm3 (0.0-0.1) 06/01/18 09:25 Metamyelocytes # 0.0 K/mm3 06/01/18 09:25 Myelocytes # 0.0 K/mm3 06/01/18 09:25 Promyelocytes # 0.0 K/mm3 06/01/18 09:25 Blast Cells # 0.0 K/mm3 06/01/18 09:25 WBC Morphology Not Reportable 06/01/18 09:25 Hypersegmented Neuts Not Reportable 06/01/18 09:25 Hyposegmented Neuts Not Reportable 06/01/18 09:25 Hypogranular Neuts Not Reportable 06/01/18 09:25 Smudge Cells Not Reportable 06/01/18 09:25 Toxic Granulation Not Reportable 06/01/18 09:25 Toxic Vacuolation Not Reportable 06/01/18 09:25 Dohle Bodies Not Reportable 06/01/18 09:25 Pelger-Huet Anomaly Not Reportable 06/01/18 09:25 Alba Rods Not Reportable 06/01/18 09:25 Platelet Estimate Consistent w auto 06/01/18 09:25 Clumped Platelets Not Reportable 06/01/18 09:25 Plt Clumps, EDTA Not Reportable 06/01/18 09:25 Large Platelets Not Reportable 06/01/18 09:25 Giant Platelets Not Reportable 06/01/18 09:25 Platelet Satelliting Not Reportable 06/01/18 09:25 Plt Morphology Comment Not Reportable 06/01/18 09:25 RBC Morphology Not Reportable 06/01/18 09:25 Dimorphic RBCs Not Reportable 06/01/18 09:25 Polychromasia Not Reportable 06/01/18 09:25 Hypochromasia 1+ 06/01/18 09:25 Poikilocytosis Not Reportable 06/01/18 09:25 Anisocytosis 2+ 06/01/18 09:25 Microcytosis 1+ 06/01/18 09:25 Macrocytosis Not Reportable 06/01/18 09:25 Spherocytes Not Reportable 06/01/18 09:25 Pappenheimer Bodies Not Reportable 06/01/18 09:25 Sickle Cells Not Reportable 06/01/18 09:25 Target Cells Not Reportable 06/01/18 09:25 Tear Drop Cells Not Reportable 06/01/18 09:25 Ovalocytes Not Reportable 06/01/18 09:25 Helmet Cells Not Reportable 06/01/18 09:25 [place] Bodies Not Reportable 06/01/18 09:25 [place] Rings Not Reportable 06/01/18 09:25 Jazmin Cells Not Reportable 06/01/18 09:25 Bite Cells Not Reportable 06/01/18 09:25 Crenated Cell Not Reportable 06/01/18 09:25 Elliptocytes Not Reportable 06/01/18 09:25 Acanthocytes (Spur) Not Reportable 06/01/18 09:25 Rouleaux Not Reportable 06/01/18 09:25 Hemoglobin C Crystals Not Reportable 06/01/18 09:25 Schistocytes Not Reportable 06/01/18 09:25 Malaria parasites Not Reportable 06/01/18 09:25 James Bodies Not Reportable 06/01/18 09:25 Hem Pathologist Commnt No 06/01/18 09:25 PT 16.4 Sec. (12.2-14.9) H 05/26/18 05:15 INR 1.24 (0.87-1.13) H 05/26/18 05:15 APTT 30.3 Sec. (24.2-36.6) 05/07/18 10:37 POC ABG pH 7.372 (7.35-7.45) 05/14/18 10:36 POC ABG pCO2 31.8 (35-45) L 05/14/18 10:36 POC ABG pO2 83 (80-105) 05/14/18 10:36 POC ABG HCO3 18.5 05/14/18 10:36 POC ABG Total CO2 19 05/14/18 10:36 POC ABG O2 Sat 96 05/14/18 10:36 POC ABG Base Excess -7 05/14/18 10:36 FiO2 21 % 05/14/18 10:36 Sodium 145 mmol/L (137-145) 06/01/18 09:25 Potassium 4.5 mmol/L (3.6-5.0) 06/01/18 09:25 Chloride 116.8 mmol/L (98-107) H 06/01/18 09:25 Carbon Dioxide 23 mmol/L (22-30) 06/01/18 09:25 Anion Gap 10 mmol/L 06/01/18 09:25 BUN 39 mg/dL (9-20) H 06/01/18 09:25 Creatinine 1.9 mg/dL (0.8-1.5) H 06/01/18 09:25 Estimated GFR 41 ml/min 06/01/18 09:25 BUN/Creatinine Ratio 21 % 06/01/18 09:25 Glucose 152 mg/dL (75-100) H 06/01/18 09:25 POC Glucose 241 (70-105) H 05/31/18 17:19 Hemoglobin A1c 7.6 % (4-6) H 05/08/18 03:15 Osmolality 316 Mosm/kg 05/19/18 01:19 Lactic Acid 1.60 mmol/L (0.7-2.0) 05/07/18 13:21 Uric Acid 9.0 mg/dL (3.5-7.6) H 05/19/18 01:19 Calcium 7.3 mg/dL (8.4-10.2) L 06/01/18 09:25 Phosphorus 3.30 mg/dL (2.5-4.5) 05/27/18 14:35 Magnesium 1.90 mg/dL (1.7-2.3) 05/27/18 14:35 Total Bilirubin 0.20 mg/dL (0.1-1.2) 06/01/18 09:25 Direct Bilirubin < 0.2 mg/dL (0-0.2) 06/01/18 09:25 Indirect Bilirubin 0.0 mg/dL 06/01/18 09:25 AST 26 units/L (5-40) 06/01/18 09:25 ALT 8 units/L (7-56) 06/01/18 09:25 Alkaline Phosphatase 128 units/L (35-129) 06/01/18 09:25 Total Protein 5.8 g/dL (6.3-8.2) L 06/01/18 09:25 Albumin 1.3 g/dL (3.9-5) L 06/01/18 09:25 Albumin/Globulin Ratio 0.3 % 06/01/18 09:25 Urine Color Flora (Yellow) 05/24/18 Unknown Urine Turbidity Turbid (Clear) 05/24/18 Unknown Urine pH 5.0 (5.0-7.0) 05/24/18 Unknown Ur Specific Etters 1.019 (1.003-1.030) 05/24/18 Unknown Urine Protein 100 mg/dl mg/dL (Negative) 05/24/18 Unknown Urine Glucose (UA) Neg mg/dL (Negative) 05/24/18 Unknown Urine Ketones Neg mg/dL (Negative) 05/24/18 Unknown Urine Blood Mod (Negative) 05/24/18 Unknown Urine Nitrite Neg (Negative) 05/24/18 Unknown Urine Bilirubin Neg (Negative) 05/24/18 Unknown Urine Urobilinogen < 2.0 mg/dL (<2.0) 05/24/18 Unknown Ur Leukocyte Esterase Lg (Negative) 05/24/18 Unknown Urine WBC (Auto) > 182.0 /HPF (0.0-6.0) H 05/24/18 Unknown Urine RBC (Auto) > 182.0 /HPF (0.0-6.0) 05/24/18 Unknown U Epithel Cells (Auto) < 1.0 /HPF (0-13.0) 05/07/18 12:20 Urine Bacteria (Auto) 1+ /HPF (Negative) 05/07/18 12:20 Urine Mucus Few /HPF 05/07/18 12:20 Urine Yeast (Budding) 3+ /HPF 05/24/18 Unknown Immunofix Electrophor see below 05/19/18 01:19 Influenza A (Rapid) Negative (Negative) 05/12/18 Unknown Influenza A (RT-PCR) Negative (Negative) 05/12/18 Unknown Influenza B (Rapid) Negative (Negative) 05/12/18 Unknown Influenza B (RT-PCR) Negative (Negative) 05/12/18 Unknown Blood Type O POSITIVE 05/22/18 10:08 Antibody Screen Negative 05/22/18 10:08 Crossmatch See Detail 05/22/18 10:08 Nutrition/Malnutrition Assess - Dietary Evaluation Nutrition/Malnutrition Findings: Nutrition Notes Start: 05/08/18 09:32 Freq: Status: Active Protocol: Document 06/01/18 14:43 COGHADA (Rec: 06/01/18 14:56 COGHADA SR- [id number]) Nutrition Notes Initial or Follow up Reassessment Current Diagnosis Acute Kidney Injury,Diabetes Other Pertinent Diagnosis Dysphagia, recurrent aspiration pneu Current Diet TF - Glucerna 1.2 bolus 4 times daily Labs/Tests reviewed Pertinent Medications reviewed Height 5 ft 6 in Weight 98.9 kg [place] Body Weight (kg) 64.54 BMI 35.2 Subjective/Other Information Pt tolerating bolus feeds now. Family wants bolus feeds reduced to TID. Burn Absent Trauma Absent #1 Nutrition Diagnosis Inadequate oral intake Diagnosis Progress(for reassessment Continues documentation) Is patient on ventilator? No Is Patient Ambulatory and/or Out of Bed No REE-([facility]-confined to bed) 1975.592 Kcal/Kg value to use for calculation 18 Approximate Energy Requirements Using 1780 kcal/Kg Calculation Used for Recommendations Kcal/kg Additional Notes Pro needs 1-1.2g/kg adjBW: 82- 98g/day Fluid needs 1ml/kcal Nutrition Intervention Nutrition Support: Give pt 480ml of Glucerna 1.2 TID with 100ml water flush q4h (provides 1728 kcal and 86g pro). If using cans, bolus Glucerna 1.2 TID with following schedule: 2 cans Glucerna 1.2 for breakfast, lunch and dinner. Provide 100ml water flush q4h. (provides 1710 kcal and 85g pro) Kcal 1,728 Protein (gm) 86 Fluid (mL) 1,159 Goal #1 TF tolerance Goal #2 TF to meet at least 75% energy and pro needs Follow-Up By: 06/04/18 Additional Comments F/U: bolus TF tolerance, wt
[2018-06-02] MEDS: D5W 1,000 ML IV SCH ×2 (12:22→21:18)
--- NOTE | 2018-06-02 14:34 | Progress Note ---
Assessment and Plan Cultures: 05/07/18; MRSA PCR: negative 05/07/18 Blood; no growth after 5 days 05/08/18: Urine: [place] 05/19/18 Blood: no growth after 5 days 05/24/18 Urine: [place] A/P: 78-year-old male past medical history of CVA, Type 2 diabetes, GERD, Asthma, Hyperlipedemia, Right total knee replacement. Admitted to ID for SiIRS vs Sepsis, UTI, Acute encephalopay and acute respiratory failure. On 05/20/18 SIR's/Sepsis resolved, no fevers. Repeat CXR resolved pneumonia. s/p peg tube by surgery. Completed antibiotic treatment Ceftriaxone and Flagyl. Reconsulted for : 1. Sepsis: evidenced by new low grade fevers, tachycardia and hyotension, etiology unclear, possibly related to PNA, repeat CXR shows new right lower lobe infiltrates. No leukocytosis, +indwelling durán catheter for urinary retention. 2, HAP vs Aspiration Pneumonia: repeat CXR 06/01/18 shows new infiltrates right lower lobe. Likely recurrent aspiration pneumonia. + Oropharngeal dysphagia, s/p PEG placement by surgery on 05/26/18. Start Cefepime, Vancomycin and Flagyl. 3. DEVIN: antibiotics renally dosed,. Nephrology following. 4. Chronic Urinary Retention: indwelling Durán catheter. Will need catheter exchange, will then draw new U/A and urine culture to avoid picking up colonization. 5. Acute Metabolic Encephalopathy: improved. Plan: -Order Blood Cultures -order U/A and Urine Culture after Durán exchange -Start Vancomycin PK dosing -Start Cefepime 1 gm IV every 12 hours -Start Flagyl 500mg IV every 8 hours d/w Dr. Ricardo Rousseau, [employer] [facility] M: [phone] O:[phone] Subjective Date of service: 06/02/18 Principal diagnosis: PEG Interval history: Patient seen and examined. Awake, Alert, no acute distress, family at bedside. Nurses notes, lab and reports reviewed, discussed with family Objective - Exam Narrative Exam: Narrative Exam: General appearance: alert in NAD, garbled speech. no acute distress Eyes: anicteric sclerae, moist conjunctivae; no lid-lag; PERRLA HENT: Atraumatic; oropharynx thick whitish debris, normal hard and soft palate edentulous. Normal external ears. Neck: Trachea midline; supple, no thyromegaly or lymphadenopathy Lungs: fine crackles right lower lobe. CV: ST Abdomen: Soft, non-tender; no masses or hepatosplenomegaly Extremities: Barrett leg edema Skin: Normal temperature, turgor and texture; no rash, ulcers or subcutaneous nodules Psych: alert pleasant - Constitutional Vitals: Vital Signs Temp Pulse Resp BP Pulse Ox 98.7 F 72 22 107/57 82 L 06/02/18 07:51 06/02/18 07:51 06/02/18 07:51 06/02/18 07:51 06/02/18 07:51 Temperature -Last 24 Hours Temperature 98.7 F Temperature 99.2 F Temperature 99.9 F - Labs CBC & Chem 7: 06/01/18 09:25 06/02/18 09:44 Labs: Abnormal lab results 06/02/18 Range/Units 09:44 Sodium 152 H (137-145) mmol/L Chloride 111.7 H (98-107) mmol/L BUN 37 H (9-20) mg/dL Creatinine 1.8 H (0.8-1.5) mg/dL Glucose 138 H (75-100) mg/dL Calcium 7.0 L (8.4-10.2) mg/dL
[2018-06-02] MEDS ORDERED: VANCOMYCIN PHARMACY TO DOSE IV SCH (16:00)
[2018-06-02] MEDS: FLAGYL 500 MG/100 ML 500 MG/100 ML BAG IV SCH ×2 (16:28→21:18)
[2018-06-02] MEDS: MAXIPIME/NS 1 GM/100 ML 1 GM/100 ML BAG IV SCH ×2 (17:41→21:17)
[2018-06-02] MEDS ORDERED: VANCOMYCIN 2,000 MG in NACL 0.9% 500 ML 500 ML IV ONE (20:00)
[2018-06-02] MEDS: PRAVACHOL FEEDTUBE SCH (21:16)
[2018-06-03] MEDS: HumaLOG SUB-Q SCH ×5 (00:27→18:04)
[2018-06-03 00:56] LABS: Hematocrit 21.3 % (35.5-45.6); Hemoglobin 6.8 gm/dl (11.8-15.2); Mean Corpuscular HGB Conc 32 % (32-34); Mean Corpuscular Volume 73 fl (84-94); Platelet Count 221 K/mm3 (140-440)
[2018-06-03 01:20] LABS: Red Cell Distribution Width 25.5 % (13.2-15.2)
[2018-06-03 02:10] LABS: Anisocytosis 1+; Band Neutrophils # (Manual) 1.9 K/mm3; Basophils % (Manual) 0 % (0.0-1.8); Hypochromasia 2+; Platelet Estimate Consistent w Auto; Spherocytes Few; Target Cells 1+; Total Cells Counted 100
[2018-06-03] MEDS: D5W 1,000 ML IV SCH (05:23)
[2018-06-03] MEDS: FLAGYL 500 MG/100 ML 500 MG/100 ML BAG IV SCH ×2 (05:23→15:39)
[2018-06-03] MEDS: REGLAN FEEDTUBE SCH ×4 (07:45→23:36)
--- NOTE | 2018-06-03 08:07 | Progress Note ---
Assessment and Plan Assessment and plan: Very frail 78-year-old male patient was admitted with UTI, recurrent aspiration pneumonia, dysphagia, status post PEG, planning to discharge home with home health, family refused rehabilitation/SNF placement, -he developed fever, found to have R Chest PNA, completed abx for UTI and recurrent aspiration pna, restarted on abx LUE swelling was noted , DUplex was negative for DVT, improved with elevation of extremity -Sp PEG for dysphagia -received [address] [facility] for anemia -He also had acute kidney injury, vasomotor nephropathy, which improved with gentle hydration and avoidance of nephrotoxins -The patient has history of urinary retention, has had indwelling Durán since 04/25/2018, which has been kept in place -The patient has chronic left hydronephrosis and atrophic kidney, this has been extensively evaluated by urology in previous visits, who recommended no further management given that the kidney is atrophic and unlikely to recover without any intervention -The patient has received physical therapy for deconditioning -Rehabilitation was recommended, but the family would like to take him home. -hypernatremia improved with free water via G tube, NS was dc -Xrays show possible R base infiltrate? and concerned for recurrent UTI, dw ID, will exchange durán today and obtain UA and UC, abx per ID, plan for dc to hospice tomorrow , will be dc with home hospice -continue lasix, for fluid overload Diagnosis Recurrent aspiration PNA Sepsis hypotension Sinus tachycardia UTI Dehydration Left upper extremity dependent edema Dysphasia Acute on chronic Acute kidney injury/results and nephropathy Chronic left hydronephrosis with atrophic kidney Persistent hyperglycemia due to type 2 diabetes --Acute metabolic encephalopathy; present on admission --Severe protein calorie malnutrition --H/O CVA with right-sided hemiparesis, supportive care --Chronic urinary retention; urology rec, cont durán catheter --Physical deconditioning; Hypernatremia fluid overload History Interval history: The patient continues to be very confused, generalized weakness, decreased responsiveness No vomiting, no seizures, continues to be oxygen dependent Hospitalist Physical - Physical exam Narrative exam: General.: Appears chronically ill HEENT: Moist mucous membranes, extraocular muscles intact, no lymphadenopathy Neck: supple Cardiac: S1-S2 heard Lungs: Decreased air entry, crackles in bases Abdomen: soft , nontender, nondistended, bowel sounds positive Extremities: no edema clubbing or cyanosis Skin: no rash or lesions Neurologic: Confused, generalized weakness, moves extremities and opens eyes. Currently not verbal - Constitutional Vitals: Temp Pulse Resp BP Pulse Ox 99.2 F 121 H 24 121/60 100 06/03/18 01:46 06/03/18 02:13 06/03/18 01:46 06/03/18 02:13 06/03/18 00:00 General appearance: Present: no acute distress, well-nourished, obese, other (low-grade fever) Results - Labs CBC & Chem 7: 06/04/18 05:54 06/04/18 05:54 Labs: Laboratory Last Values WBC 13.8 K/mm3 (4.5-11.0) H 06/03/18 00:25 RBC 2.90 M/mm3 (3.65-5.03) L 06/03/18 00:25 Hgb 6.8 gm/dl (11.8-15.2) L 06/03/18 00:25 Hct 21.3 % (35.5-45.6) L 06/03/18 00:25 MCV 73 fl (84-94) L 06/03/18 00:25 MCH 23 pg (28-32) L 06/03/18 00:25 MCHC 32 % (32-34) 06/03/18 00:25 RDW 25.5 % (13.2-15.2) H 06/03/18 00:25 Plt Count 221 K/mm3 (140-440) 06/03/18 00:25 Lymph % (Auto) Artist Consultant 05/24/18 10:59 Williams % (Auto) Artist Consultant 05/24/18 10:59 Eos % (Auto) Artist Consultant 05/24/18 10:59 Baso % (Auto) Artist Consultant 05/24/18 10:59 Lymph # Artist Consultant 05/24/18 10:59 Williams # Artist Consultant 05/24/18 10:59 Eos # Artist Consultant 05/24/18 10:59 Baso # Artist Consultant 05/24/18 10:59 Add Manual Diff Complete 06/03/18 00:25 Total Counted 100 06/03/18 00:25 Seg Neutrophils % Artist Consultant 05/24/18 10:59 Seg Neuts % (Manual) 79.0 % (40.0-70.0) H 06/03/18 00:25 Band Neutrophils % 14.0 % 06/03/18 00:25 Lymphocytes % (Manual) 1.0 % (13.4-35.0) L 06/03/18 00:25 Reactive Lymphs % (Man) 0 % 06/03/18 00:25 Monocytes % (Manual) 4.0 % (0.0-7.3) 06/03/18 00:25 Eosinophils % (Manual) 2.0 % (0.0-4.3) 06/03/18 00:25 Basophils % (Manual) 0 % (0.0-1.8) 06/03/18 00:25 Metamyelocytes % 0 % 06/03/18 00:25 Myelocytes % 0 % 06/03/18 00:25 Promyelocytes % 0 % 06/03/18 00:25 Blast Cells % 0 % 06/03/18 00:25 Nucleated RBC % Not Reportable 06/03/18 00:25 Seg Neutrophils # Artist Consultant 05/24/18 10:59 Seg Neutrophils # Man 10.9 K/mm3 (1.8-7.7) H 06/03/18 00:25 Band Neutrophils # 1.9 K/mm3 06/03/18 00:25 Lymphocytes # (Manual) 0.1 K/mm3 (1.2-5.4) L 06/03/18 00:25 Abs React Lymphs (Man) 0.0 K/mm3 06/03/18 00:25 Monocytes # (Manual) 0.6 K/mm3 (0.0-0.8) 06/03/18 00:25 Eosinophils # (Manual) 0.3 K/mm3 (0.0-0.4) 06/03/18 00:25 Basophils # (Manual) 0.0 K/mm3 (0.0-0.1) 06/03/18 00:25 Metamyelocytes # 0.0 K/mm3 06/03/18 00:25 Myelocytes # 0.0 K/mm3 06/03/18 00:25 Promyelocytes # 0.0 K/mm3 06/03/18 00:25 Blast Cells # 0.0 K/mm3 06/03/18 00:25 WBC Morphology Not Reportable 06/03/18 00:25 Hypersegmented Neuts Not Reportable 06/03/18 00:25 Hyposegmented Neuts Not Reportable 06/03/18 00:25 Hypogranular Neuts Not Reportable 06/03/18 00:25 Smudge Cells Not Reportable 06/03/18 00:25 Toxic Granulation Not Reportable 06/03/18 00:25 Toxic Vacuolation Not Reportable 06/03/18 00:25 Dohle Bodies Not Reportable 06/03/18 00:25 Pelger-Huet Anomaly Not Reportable 06/03/18 00:25 Alba Rods Not Reportable 06/03/18 00:25 Platelet Estimate Consistent w auto 06/03/18 00:25 Clumped Platelets Not Reportable 06/03/18 00:25 Plt Clumps, EDTA Not Reportable 06/03/18 00:25 Large Platelets Not Reportable 06/03/18 00:25 Giant Platelets Not Reportable 06/03/18 00:25 Platelet Satelliting Not Reportable 06/03/18 00:25 Plt Morphology Comment Not Reportable 06/03/18 00:25 RBC Morphology Not Reportable 06/03/18 00:25 Dimorphic RBCs Not Reportable 06/03/18 00:25 Polychromasia Not Reportable 06/03/18 00:25 Hypochromasia 2+ 06/03/18 00:25 Poikilocytosis Not Reportable 06/03/18 00:25 Anisocytosis 1+ 06/03/18 00:25 Microcytosis Not Reportable 06/03/18 00:25 Macrocytosis Not Reportable 06/03/18 00:25 Spherocytes Few 06/03/18 00:25 Pappenheimer Bodies Not Reportable 06/03/18 00:25 Sickle Cells Not Reportable 06/03/18 00:25 Target Cells 1+ 06/03/18 00:25 Tear Drop Cells Not Reportable 06/03/18 00:25 Ovalocytes Not Reportable 06/03/18 00:25 Helmet Cells Not Reportable 06/03/18 00:25 Mccoy-[place] Bodies Not Reportable 06/03/18 00:25 Camas Rings Not Reportable 06/03/18 00:25 Jazmin Cells Not Reportable 06/03/18 00:25 Bite Cells Not Reportable 06/03/18 00:25 Crenated Cell Not Reportable 06/03/18 00:25 Elliptocytes Not Reportable 06/03/18 00:25 Acanthocytes (Spur) Not Reportable 06/03/18 00:25 Rouleaux Not Reportable 06/03/18 00:25 Hemoglobin C Crystals Not Reportable 06/03/18 00:25 Schistocytes Not Reportable 06/03/18 00:25 Malaria parasites Not Reportable 06/03/18 00:25 James Bodies Not Reportable 06/03/18 00:25 Hem Pathologist Commnt No 06/03/18 00:25 PT 16.4 Sec. (12.2-14.9) H 05/26/18 05:15 INR 1.24 (0.87-1.13) H 05/26/18 05:15 APTT 30.3 Sec. (24.2-36.6) 05/07/18 10:37 POC ABG pH 7.372 (7.35-7.45) 05/14/18 10:36 POC ABG pCO2 31.8 (35-45) L 05/14/18 10:36 POC ABG pO2 83 (80-105) 05/14/18 10:36 POC ABG HCO3 18.5 05/14/18 10:36 POC ABG Total CO2 05/14/18 10:36 POC ABG O2 Sat 96 05/14/18 10:36 POC ABG Base Excess -7 05/14/18 10:36 FiO2 21 % 05/14/18 10:36 Sodium 152 mmol/L (137-145) H 06/02/18 09:44 Potassium 4.6 mmol/L (3.6-5.0) 06/02/18 09:44 Chloride 111.7 mmol/L (98-107) H 06/02/18 09:44 Carbon Dioxide 22 mmol/L (22-30) 06/02/18 09:44 Anion Gap 23 mmol/L 06/02/18 09:44 BUN 37 mg/dL (9-20) H 06/02/18 09:44 Creatinine 1.8 mg/dL (0.8-1.5) H 06/02/18 09:44 Estimated GFR 44 ml/min 06/02/18 09:44 BUN/Creatinine Ratio 21 % 06/02/18 09:44 Glucose 138 mg/dL (75-100) H 06/02/18 09:44 POC Glucose 241 (70-105) H 05/31/18 17:19 Hemoglobin A1c 7.6 % (4-6) H 05/08/18 03:15 Osmolality 316 Mosm/kg 05/19/18 01:19 Lactic Acid 1.60 mmol/L (0.7-2.0) 05/07/18 13:21 Uric Acid 9.0 mg/dL (3.5-7.6) H 05/19/18 01:19 Calcium 7.0 mg/dL (8.4-10.2) L 06/02/18 09:44 Phosphorus 3.30 mg/dL (2.5-4.5) 05/27/18 14:35 Magnesium 1.90 mg/dL (1.7-2.3) 05/27/18 14:35 Total Bilirubin 0.20 mg/dL (0.1-1.2) 06/01/18 09:25 Direct Bilirubin < 0.2 mg/dL (0-0.2) 06/01/18 09:25 Indirect Bilirubin 0.0 mg/dL 06/01/18 09:25 AST 26 units/L (5-40) 06/01/18 09:25 ALT 8 units/L (7-56) 06/01/18 09:25 Alkaline Phosphatase 128 units/L (35-129) 06/01/18 09:25 Total Protein 5.8 g/dL (6.3-8.2) L 06/01/18 09:25 Albumin 1.3 g/dL (3.9-5) L 06/01/18 09:25 Albumin/Globulin Ratio 0.3 % 06/01/18 09:25 Urine Color Flora (Yellow) 05/24/18 Unknown Urine Turbidity Turbid (Clear) 05/24/18 Unknown Urine pH 5.0 (5.0-7.0) 05/24/18 Unknown Ur Specific [place] 1.019 (1.003-1.030) 05/24/18 Unknown Urine Protein 100 mg/dl mg/dL (Negative) 05/24/18 Unknown Urine Glucose (UA) Neg mg/dL (Negative) 05/24/18 Unknown Urine Ketones Neg mg/dL (Negative) 05/24/18 Unknown Urine Blood Mod (Negative) 05/24/18 Unknown Urine Nitrite Neg (Negative) 05/24/18 Unknown Urine Bilirubin Neg (Negative) 05/24/18 Unknown Urine Urobilinogen < 2.0 mg/dL (<2.0) 05/24/18 Unknown Ur Leukocyte Esterase Lg (Negative) 05/24/18 Unknown Urine WBC (Auto) > 182.0 /HPF (0.0-6.0) H 05/24/18 Unknown Urine RBC (Auto) > 182.0 /HPF (0.0-6.0) 05/24/18 Unknown U Epithel Cells (Auto) < 1.0 /HPF (0-13.0) 05/07/18 12:20 Urine Bacteria (Auto) 1+ /HPF (Negative) 05/07/18 12:20 Urine Mucus Few /HPF 05/07/18 12:20 Urine Yeast (Budding) 3+ /HPF 05/24/18 Unknown Immunofix Electrophor see below 05/19/18 01:19 Influenza A (Rapid) Negative (Negative) 05/12/18 Unknown Influenza A (RT-PCR) Negative (Negative) 05/12/18 Unknown Influenza B (Rapid) Negative (Negative) 05/12/18 Unknown Influenza B (RT-PCR) Negative (Negative) 05/12/18 Unknown Blood Type O POSITIVE 05/22/18 10:08 Antibody Screen Negative 05/22/18 10:08 Crossmatch See Detail 05/22/18 10:08 Nutrition/Malnutrition Assess - Dietary Evaluation Nutrition/Malnutrition Findings: Nutrition Notes Start: 05/08/18 09:32 Freq: Status: Active Protocol: Document 06/01/18 14:43 [facility] (Rec: 06/01/18 14:56 [facility] SRW- [id number]) Nutrition Notes Initial or Follow up Reassessment Current Diagnosis Acute Kidney Injury,Diabetes Other Pertinent Diagnosis Dysphagia, recurrent aspiration pneu Current Diet TF - Glucerna 1.2 bolus 4 times daily Labs/Tests reviewed Pertinent Medications reviewed Height 5 ft 6 in Weight 98.9 kg [place] Body Weight (kg) 64.54 BMI 35.2 Subjective/Other Information Pt tolerating bolus feeds now. Family wants bolus feeds reduced to TID. Burn Absent Trauma Absent #1 Nutrition Diagnosis Inadequate oral intake Diagnosis Progress(for reassessment Continues documentation) Is patient on ventilator? No Is Patient Ambulatory and/or Out of Bed No REE-([facility]-confined to bed) 1976.592 Kcal/Kg value to use for calculation 18 Approximate Energy Requirements Using 1780 kcal/Kg Calculation Used for Recommendations Kcal/kg Additional Notes Pro needs 1-1.2g/kg adjBW: 82- 98g/day Fluid needs 1ml/kcal Nutrition Intervention Nutrition Support: Give pt 480ml of Glucerna 1.2 TID with 100ml water flush q4h (provides 1728 kcal and 86g pro). If using cans, bolus Glucerna 1.2 TID with following schedule: 2 cans Glucerna 1.2 for breakfast, lunch and dinner. Provide 100ml water flush q4h. (provides 1710 kcal and 85g pro) Kcal 1,728 Protein (gm) 86 Fluid (mL) 1,159 Goal #1 TF tolerance Goal #2 TF to meet at least 75% energy and pro needs Follow-Up By: 06/04/18 Additional Comments F/U: bolus TF tolerance, wt
--- NOTE | 2018-06-03 08:23 | XRay Report ---
AP CHEST: HISTORY: Pneumonia Mild cardiomegaly, mild pulmonary venous congestion and small pleural effusions are identified. These findings appear slightly worse when comparing to 06/01/18. No obvious infiltrate or pneumothorax. IMPRESSION: Mild CHF.
[2018-06-03] MEDS ORDERED: NACL 0.9% 500 ML 500 ML IV NR (08:30)
--- NOTE | 2018-06-03 09:16 | Progress Note ---
Subjective Principal diagnosis: PEG Interval history: Patient was seen today for follow-up on multiple renal related issues Events of this hospitalization noted Patient's daughter is at bedside Resting comfortably Renal function stable Vitals labs intake output medications were reviewed Social history: Reviewed Allergies: Reviewed Family history: Reviewed Physical examination HEENT: Oral mucosa moist no pallor or icterus Neck: Supple no JVD Chest: Clear to auscultation anteriorly CVS: Regular rate and rhythm S1 and S2 heard Abdomen: Soft nontender no suprapubic masses no organomegaly appreciable Extremity: Approximately 2 eripheral edema Musculoskeletal: No joint effusion noted in knees and ankle Neurological: Alert awake Dermatology: No petechial rashes Psychiatry: No evidence of any agitation and aggression noted Assessment and plan Renal failure: Creatinine better, will give 1 dose of Lasix, 80 mg Hypernatremia: This is become a chronic issue off and on and gets worse with diuresis Patient does need diuretic due to severe volume overload Will give him 1 dose of albumin also Some of this is also resulting from third spacing of fluid hypernatremia: Gets worse when he is given more diuretic, Patient may need to go to a rehabilitation facility/LTAC Phosphorus magnesium normal on 05/27/2089 Free water boluses as required, strict intake and output monitoring Obstructive uropathy: Patient will need to follow-up with urology Overall prognosis appears to be limited due to age and multiple comorbidities We'll continue to follow and make recommendation from renal standpoint Objective - Vital Signs Vital signs: Vital Signs - 12hr 06/02/18 06/03/18 06/03/18 23:30 00:00 01:46 Temperature 99.2 F Pulse Rate Respiratory 24 24 Rate Respiratory 20 Rate [ Generalized] Blood Pressure 121/60 Blood Pressure [Left] O2 Sat by Pulse 100 Oximetry 06/03/18 06/03/18 02:13 07:54 Temperature 99.8 F H Pulse Rate 121 H 122 H Respiratory 18 Rate Respiratory Rate [ Generalized] Blood Pressure 105/52 Blood Pressure 121/60 [Left] O2 Sat by Pulse 98 Oximetry - Lab 06/03/18 00:25 06/02/18 09:44 Most recent lab results Calcium 7.0 mg/dL (8.4-10.2) L 06/02/18 09:44 Phosphorus 3.30 mg/dL (2.5-4.5) 05/27/18 14:35 Magnesium 1.90 mg/dL (1.7-2.3) 05/27/18 14:35 Medications & Allergies - Medications Allergies/Adverse Reactions: Allergies Penicillins Allergy (Verified 04/11/18 16:00) Unknown Home Medications: Home Medications Medication Instructions Recorded Confirmed Last Taken Type Clopidogrel Bisulfate [Plavix] 75 mg PO DAILY #0 09/21/17 05/07/18 04/24/18 12:00 History Famotidine [Pepcid] 20 mg PO DAILY #0 09/21/17 05/07/18 04/24/18 History 20mg Simvastatin 40 mg PO HS 09/21/17 05/07/18 04/24/18 08:00 History 20 mg Sucralfate [Carafate] 1 gram PO BID #0 09/21/17 05/07/18 04/24/18 12:00 History 1 gm Ferrous Sulfate [Feosol 325 MG tab] 325 mg PO BID #60 tablet 05/04/18 05/07/18 Unknown Rx Active Medications: Generic Name Dose Route Start Last Admin Trade Name Freq PRN Reason Stop Dose Admin Acetaminophen 650 mg 05/27/18 07:30 06/01/18 08:20 Tylenol FEEDTUBE 650 mg Q4H PRN Administration Pain MILD(1-3)/Fever >100.5/MACIAS Albuterol 2.5 mg 05/10/18 15:59 Proventil IH Q4HRT PRN Shortness Of Breath Lipase/Protease/Amylase 1 each 06/01/18 14:[address] 10,500 Unit FEEDTUBE PRN PRN For Clogged Feeding Tube Bisacodyl 10 mg 05/16/18 13:02 05/16/18 13:54 Dulcolax [place] 10 mg QDAY PRN Administration Constipation Calcium Carbonate/Glycine 1,250 mg 05/24/18 10:00 06/02/18 21:15 Calcium Carbonate FEEDTUBE 1,250 mg BID FREDI Administration Dextrose 50 ml 05/19/18 05:05 D50w (25gm) Syringe IV PRN PRN Hypoglycemia Ferrous Sulfate 308 mg 05/27/18 10:00 06/02/18 21:16 Ferrous Sulfate FEEDTUBE 308 mg BID FREDI Administration Hydromorphone HCl 0.5 mg 05/08/18 02:22 Dilaudid IV Q3H PRN Pain , Severe (7-10) Dextrose 1,000 mls @ 150 mls/hr 05/27/18 16:00 06/03/18 05:23 D5w IV 125 mls/hr DIRECT FREDI Administration Sodium Chloride 1,000 mls @ 42 mls/hr 06/01/18 13:00 06/01/18 15:15 Nacl 0.9% 1000 Ml IV 42 mls/hr DIRECT FREDI Administration Cefepime HCl 1 gm in 100 mls @ 200 mls/hr 06/02/18 16:00 06/02/18 21:17 Maxipime/Ns 1 Gm/100 Ml IV 200 mls/hr Q12HR FREDI Administration Protocol Metronidazole 500 mg in 100 mls @ 100 mls/hr 06/02/18 17:00 06/03/18 05:23 Flagyl 500 Mg/100 Ml IV 100 mls/hr Q8HR FREDI Administration Protocol Vancomycin HCl 1,500 mg/ 530 mls @ 333 mls/hr 06/03/18 18:00 Sodium Chloride IV Q24H FREDI Protocol Sodium Chloride 500 mls @ 0 mls/hr 06/03/18 08:30 Nacl 0.9% 500 Ml IV 06/03/18 17:00 ONCE NR As Directed Insulin Human Lispro 0 unit 05/25/18 13:00 06/03/18 07:46 Humalog SUB-Q 2 unit Q6HR FREDI Administration Protocol Lansoprazole 30 mg 05/23/18 10:00 06/02/18 10:30 Prevacid Solutab FEEDTUBE 30 mg QDAY FREDI Administration Loperamide HCl 2 mg 05/31/18 15:17 05/31/18 17:14 Imodium PO 2 mg Q2H PRN Administration Diarrhea Metoclopramide HCl 5 mg 05/27/18 11:30 06/02/18 21:16 Reglan FEEDTUBE 5 mg ACHS FREDI Administration Ondansetron HCl 4 mg 05/08/18 02:22 Zofran IV Q8H PRN Nausea And Vomiting Oxycodone/Acetaminophen 1 tab 05/27/18 07:30 Percocet 5/325 FEEDTUBE Q6H PRN Pain, Moderate (4-6) Pravastatin Sodium 80 mg 05/27/18 22:00 06/02/18 21:16 Pravachol FEEDTUBE 80 mg QHS FREDI Administration Simple Syrup 15 ml 06/01/18 14:56 Simple Syrup FEEDTUBE PRN PRN Hypoglycemia Simple Syrup 30 ml 06/01/18 14:56 Simple Syrup FEEDTUBE PRN PRN Hypoglycemia Sodium Bicarbonate 1,300 mg 05/29/18 14:00 06/02/18 21:16 Sodium Bicarbonate PO 1,300 mg BID FREDI Administration Sodium Bicarbonate 325 mg 06/01/18 14:56 Sodium Bicarbonate FEEDTUBE PRN PRN For Clogged Feeding Tube Sodium Chloride 10 ml 05/08/18 10:00 06/02/18 22:07 Sodium Chloride Flush Syringe 10 Ml IV 10 ml BID FREDI Administration Sodium Chloride 10 ml 05/08/18 02:22 05/08/18 03:56 Sodium Chloride Flush Syringe 10 Ml IV 10 ml PRN PRN Administration LINE FLUSH Sucralfate 1 gm 05/27/18 10:00 06/02/18 21:15 Carafate FEEDTUBE 1 gm BID FREDI Administration
--- NOTE | 2018-06-03 09:36 | Progress Note ---
Assessment and Plan Cultures: 05/07/18; MRSA PCR: negative 05/07/18 Blood; no growth after 5 days 05/08/18: Urine: [place] 05/19/18 Blood: no growth after 5 days 05/24/18 Urine: [place] A/P: 78-year-old male past medical history of CVA, Type 2 diabetes, GERD, Asthma, Hyperlipedemia, Right total knee replacement. Admitted to ID for SiIRS vs Sepsis, UTI, Acute encephalopay and acute respiratory failure. On 05/20/18 SIR's/Sepsis resolved, no fevers. Repeat CXR resolved pneumonia. s/p peg tube by surgery. Completed antibiotic treatment Ceftriaxone and Flagyl. Reconsulted for : 1. Sepsis: Improving, evidenced by new low grade fevers, tachycardia and hyotension, etiology unclear, possibly related to PNA, repeat CXR shows new right lower lobe infiltrates. No leukocytosis, +indwelling durán catheter for urinary retention. 2, HAP vs Aspiration Pneumonia: repeat CXR 06/01/18 shows new infiltrates right lower lobe. Likely recurrent aspiration pneumonia. + Oropharngeal dysphagia, s/p PEG placement by surgery on 05/26/18. Start Cefepime, Vancomycin and Flagyl. 3. DEVIN: antibiotics renally dosed,. Nephrology following. 4. Chronic Urinary Retention: indwelling Durán catheter. Will need catheter exchange, will then draw new U/A and urine culture to avoid picking up colonization. 5. Acute Metabolic Encephalopathy: continuing. 6. Left Lower Extremity Edema: consider LLE venous duplex scan. Plan: -Order Blood Cultures -f/u U/A and Urine Culture after Durán exchange- to take place today -continue Vancomycin PK dosing, D2 -continue Cefepime 1 gm IV every 12 hours, D2 -continue Flagyl 500mg IV every 8 hours, D2 -consider LLE venous duplex scan. -poor prognosis, palliative care encouraged, family does not understand the concept of this. Julianna Rousseau NP [facility] M: [phone] O:[phone] Subjective Date of service: 06/03/18 Principal diagnosis: PEG Interval history: Patient seen and examined. Asleep,difficult to arouse. Increased WOB at bedside. Nurses notes, labs, reports reviewed, discussed with family. Objective - Exam Narrative Exam: Narrative Exam: General appearance: Asleep, difficult to arouse. Mild distress observed. Eyes: anicteric sclerae, moist conjunctivae; no lid-lag; PERRLA HENT: Atraumatic; oropharynx thick whitish debris, normal hard and soft palate edentulous. Normal external ears. Neck: Trachea midline; supple, no thyromegaly or lymphadenopathy Lungs: Scattered rhonchi., increased WOB , 02/4L nc CV: ST Abdomen: Soft, non-tender; no masses or hepatosplenomegaly Extremities: LLE edema Skin: Normal temperature, turgor and texture; no rash, ulcers or subcutaneous nodules Psych: alert pleasant - Constitutional Vitals: Vital Signs Temp Pulse Resp BP Pulse Ox 99.8 F H 122 H 18 105/52 98 06/03/18 07:54 06/03/18 07:54 06/03/18 07:54 06/03/18 07:54 06/03/18 07:54 Temperature -Last 24 Hours Temperature 99.8 F Temperature 99.2 F Temperature 99.7 F Temperature 98.8 F - Labs CBC & Chem 7: 06/03/18 00:25 06/02/18 09:44 Labs: Abnormal lab results 06/02/18 06/03/18 Range/Units 09:44 00:25 WBC 13.8 H (4.5-11.0) K/mm3 RBC 2.90 L (3.65-5.03) M/mm3 Hgb 6.8 L (11.8-15.2) gm/dl Hct 21.3 L (35.5-45.6) % MCV 73 L (84-94) fl MCH 23 L (28-32) pg RDW 25.5 H (13.2-15.2) % Seg Neuts % (Manual) 79.0 H (40.0-70.0) % Lymphocytes % (Manual) 1.0 L (13.4-35.0) % Seg Neutrophils # Man 10.9 H (1.8-7.7) K/mm3 Lymphocytes # (Manual) 0.1 L (1.2-5.4) K/mm3 Sodium 152 H (137-145) mmol/L Chloride 111.7 H (98-107) mmol/L BUN 37 H (9-20) mg/dL Creatinine 1.8 H (0.8-1.5) mg/dL Glucose 138 H (75-100) mg/dL Calcium 7.0 L (8.4-10.2) mg/dL
[2018-06-03] MEDS: FERROUS SULFATE FEEDTUBE SCH (10:52)
[2018-06-03] MEDS ORDERED: LASIX IV ONE (11:00)
[2018-06-03] MEDS ORDERED: ALBURX 25% (ALBUMIN) IV ONE (11:00)
[2018-06-03] MEDS: PREVACID SOLUTAB FEEDTUBE SCH (11:30)
[2018-06-03] MEDS: CALCIUM CARBONATE FEEDTUBE SCH (11:31)
[2018-06-03] MEDS: SODIUM BICARBONATE PO SCH (11:34)
[2018-06-03] MEDS: MAXIPIME/NS 1 GM/100 ML 1 GM/100 ML BAG IV SCH (11:35)
[2018-06-03] MEDS: CARAFATE FEEDTUBE SCH (11:36)
[2018-06-03] MEDS: SODIUM CHLORIDE FLUSH SYRINGE 10 ML IV SCH (13:45)
[2018-06-03] MEDS ORDERED: VANCOMYCIN 1,500 MG in NACL 0.9% 500 ML 500 ML IV SCH (18:00)
[2018-06-03 20:51] LABS: Bacteria,Urine 3+ /HPF (Negative); Bilirubin,Urine NEG (Negative); Blood,Urine NEG (Negative); Color,Urine Yellow (Yellow); Hyaline Casts,Urine 13 /LPF; Mucus,Urine 2+ /HPF; Protein,Urine <15 mg/dL mg/dL (Negative); Sperm,Urine 1+ /HPF (NP); Urobilinogen,Urine < 2.0 mg/dL (<2.0)
[2018-06-03 20:52] LABS: WBC,Urine > 182.0 /HPF (0.0-6.0)
[2018-06-03] MEDS: PRAVACHOL FEEDTUBE SCH (23:38)
[2018-06-04] MEDS: CALCIUM CARBONATE FEEDTUBE SCH ×2 (00:12→10:31)
[2018-06-04] MEDS: TYLENOL FEEDTUBE PRN (00:13)
[2018-06-04 06:12] LABS: Hematocrit 22.6 % (35.5-45.6); Hemoglobin 7.1 gm/dl (11.8-15.2); Mean Corpuscular HGB Conc 32 % (32-34); Mean Corpuscular Volume 77 fl (84-94); Platelet Count 213 K/mm3 (140-440); Red Blood Count 2.95 M/mm3 (3.65-5.03)
[2018-06-04 06:14] LABS: Red Cell Distribution Width 25.3 % (13.2-15.2)
[2018-06-04 06:36] LABS: Albumin 1.1 g/dL (3.9-5)
[2018-06-04 07:06] LABS: Monocytes % (Manual) 0 % (0.0-7.3); Total Cells Counted 100
[2018-06-04 07:07] LABS: Poikilocytosis 1+
[2018-06-04 07:08] LABS: Anisocytosis 2+; Hypochromasia 1+; Platelet Estimate Consistent w Auto; Spherocytes Few; Target Cells 1+
--- NOTE | 2018-06-04 08:34 | Progress Note ---
Assessment and Plan Cultures: 05/07/18; MRSA PCR: negative 05/07/18 Blood; no growth after 5 days 05/08/18: Urine: [place] 05/19/18 Blood: no growth after 5 days 05/24/18 Urine: [place] 06/02/18 Blood: no growth after 24 hours 06/03/18 Urine: no growth in 24 hours A/P: 78-year-old male past medical history of CVA, Type 2 diabetes, GERD, Asthma, Hyperlipedemia, Right total knee replacement. Admitted to [facility] for SiIRS vs Sepsis, UTI, Acute encephalopay and acute respiratory failure. On 05/20/18 SIR's/Sepsis resolved, no fevers. Repeat CXR resolved pneumonia. s/p peg tube by surgery. Completed antibiotic treatment Ceftriaxone and Flagyl. Reconsulted for : 1. Sepsis: Improving, no fevers. etiology unclear, possibly related to PNA, repeat CXR shows new right lower lobe infiltrates. No leukocytosis, +indwelling durán catheter for urinary retention. 2, HAP vs Aspiration Pneumonia: repeat CXR 06/01/18 shows new infiltrates right lower lobe. Worsening SOB, repeat CXR 06/04/18 shows worsening mild cardiomegaly, mild pulmonary venous congestion and small pleural effusions. No obvious infiltrate or pneumothorax. Likely recurrent aspiration pneumonia. + Oropharngeal dysphagia, s/p PEG placement by surgery on 05/26/18. Continue Cefepime, Vancomycin and Flagyl while inpatient. Anticipate discharge to Hospice on Augmentin 875 QD and Doxycycline 100mg BID for 7 days. 3. DEVIN: antibiotics renally dosed,. Nephrology following. 4. Chronic Urinary Retention: indwelling Durán catheter. S/p Durán catheter exchange 06/03/18. U/A with pyuria, large leukocyte esterase.. 5. Acute Metabolic Encephalopathy: continuing. 6. Left Lower Extremity Edema: consider LLE venous duplex scan. Plan: -continue Vancomycin PK dosing, D3 -continue Cefepime 1 gm IV every 12 hours, D3 -continue Flagyl 500mg IV every 8 hours, D3 -Anticipate discharge to Hospice on Augmentin 875 QD and Doxycycline 100mg BID for 7 days d/w Dr. Silva and Dr. Princess Rousseau, CLAUDINE HolleyFormerly [facility] M: [phone] O:[phone] Subjective Date of service: 06/04/18 Principal diagnosis: PEG Interval history: Patient seen and examined. Eyes closed, OT a bedside. No acute distress. No fevers. Family at bedside. Objective - Exam Narrative Exam: Narrative Exam: General appearance: Eyes closed. OT at bedside. No acute distress Eyes: anicteric sclerae, moist conjunctivae; no lid-lag; PERRLA HENT: Atraumatic; oropharynx thick whitish debris, normal hard and soft palate edentulous. Normal external ears. Neck: Trachea midline; supple, no thyromegaly or lymphadenopathy Lungs: Scattered rhonchi., 02/4L nc CV: ST Abdomen: Soft, non-tender; no masses or hepatosplenomegaly Extremities: LLE edema improved Skin: Normal temperature, turgor and texture; no rash, ulcers or subcutaneous nodules Psych: unable to assess, eyes closed. - Constitutional Vitals: Vital Signs Temp Pulse Resp BP Pulse Ox 99 F 116 H 24 106/60 100 06/04/18 03:42 06/04/18 03:42 06/04/18 03:42 06/04/18 03:42 06/04/18 03:42 Temperature -Last 24 Hours Temperature 99 F Temperature 99 F Temperature 99 F Temperature 99.2 F Temperature 99.3 F Temperature 98.7 F Temperature 98.2 F Temperature 98.2 F Temperature 100.1 F Temperature 99.1 F - Labs CBC & Chem 7: 06/04/18 05:54 06/04/18 05:54 Labs: Abnormal lab results 05/22/18 06/01/18 06/01/18 Range/Units 10:08 00:10 06:16 RBC (3.65-5.03) M/mm3 Hgb (11.8-15.2) gm/dl Hct (35.5-45.6) % MCV (84-94) fl MCH (28-32) pg RDW (13.2-15.2) % Seg Neuts % (Manual) (40.0-70.0) % Lymphocytes % (Manual) (13.4-35.0) % Seg Neutrophils # Man (1.8-7.7) K/mm3 Lymphocytes # (Manual) (1.2-5.4) K/mm3 Chloride (98-107) mmol/L BUN (9-20) mg/dL Creatinine (0.8-1.5) mg/dL Glucose (75-100) mg/dL POC Glucose 175 H 154 H (70-105) Calcium (8.4-10.2) mg/dL Total Protein (6.3-8.2) g/dL Albumin (3.9-5) g/dL Urine WBC (Auto) (0.0-6.0) /HPF Crossmatch See Detail 06/01/18 06/01/18 06/01/18 Range/Units 11:15 17:51 23:45 RBC (3.65-5.03) M/mm3 Hgb (11.8-15.2) gm/dl Hct (35.5-45.6) % MCV (84-94) fl MCH (28-32) pg RDW (13.2-15.2) % Seg Neuts % (Manual) (40.0-70.0) % Lymphocytes % (Manual) (13.4-35.0) % Seg Neutrophils # Man (1.8-7.7) K/mm3 Lymphocytes # (Manual) (1.2-5.4) K/mm3 Chloride (98-107) mmol/L BUN (9-20) mg/dL Creatinine (0.8-1.5) mg/dL Glucose (75-100) mg/dL POC Glucose 186 H 178 H 179 H (70-105) Calcium (8.4-10.2) mg/dL Total Protein (6.3-8.2) g/dL Albumin (3.9-5) g/dL Urine WBC (Auto) (0.0-6.0) /HPF Crossmatch 06/02/18 06/02/18 06/02/18 Range/Units 05:16 11:26 18:10 RBC (3.65-5.03) M/mm3 Hgb (11.8-15.2) gm/dl Hct (35.5-45.6) % MCV (84-94) fl MCH (28-32) pg RDW (13.2-15.2) % Seg Neuts % (Manual) (40.0-70.0) % Lymphocytes % (Manual) (13.4-35.0) % Seg Neutrophils # Man (1.8-7.7) K/mm3 Lymphocytes # (Manual) (1.2-5.4) K/mm3 Chloride (98-107) mmol/L BUN (9-20) mg/dL Creatinine (0.8-1.5) mg/dL Glucose (75-100) mg/dL POC Glucose 159 H 127 H 202 H (70-105) Calcium (8.4-10.2) mg/dL Total Protein (6.3-8.2) g/dL Albumin (3.9-5) g/dL Urine WBC (Auto) (0.0-6.0) /HPF Crossmatch 06/02/18 06/03/18 06/03/18 Range/Units 21:32 00:41 07:04 RBC (3.65-5.03) M/mm3 Hgb (11.8-15.2) gm/dl Hct (35.5-45.6) % MCV (84-94) fl MCH (28-32) pg RDW (13.2-15.2) % Seg Neuts % (Manual) (40.0-70.0) % Lymphocytes % (Manual) (13.4-35.0) % Seg Neutrophils # Man (1.8-7.7) K/mm3 Lymphocytes # (Manual) (1.2-5.4) K/mm3 Chloride (98-107) mmol/L BUN (9-20) mg/dL Creatinine (0.8-1.5) mg/dL Glucose (75-100) mg/dL POC Glucose 124 H 165 H 194 H (70-105) Calcium (8.4-10.2) mg/dL Total Protein (6.3-8.2) g/dL Albumin (3.9-5) g/dL Urine WBC (Auto) (0.0-6.0) /HPF Crossmatch 06/03/18 06/03/18 06/03/18 Range/Units 10:27 11:59 20:00 RBC (3.65-5.03) M/mm3 Hgb (11.8-15.2) gm/dl Hct (35.5-45.6) % MCV (84-94) fl MCH (28-32) pg RDW (13.2-15.2) % Seg Neuts % (Manual) (40.0-70.0) % Lymphocytes % (Manual) (13.4-35.0) % Seg Neutrophils # Man (1.8-7.7) K/mm3 Lymphocytes # (Manual) (1.2-5.4) K/mm3 Chloride (98-107) mmol/L BUN (9-20) mg/dL Creatinine (0.8-1.5) mg/dL Glucose (75-100) mg/dL POC Glucose 224 H (70-105) Calcium (8.4-10.2) mg/dL Total Protein (6.3-8.2) g/dL Albumin (3.9-5) g/dL Urine WBC (Auto) > 182.0 H (0.0-6.0) /HPF Crossmatch See Detail 06/03/18 06/04/18 06/04/18 Range/Units 20:25 05:54 05:54 RBC 2.95 L (3.65-5.03) M/mm3 Hgb 7.1 L (11.8-15.2) gm/dl Hct 22.6 L (35.5-45.6) % MCV 77 L (84-94) fl MCH 24 L (28-32) pg RDW 25.3 H (13.2-15.2) % Seg Neuts % (Manual) 96.0 H (40.0-70.0) % Lymphocytes % (Manual) 2.0 L (13.4-35.0) % Seg Neutrophils # Man 9.1 H (1.8-7.7) K/mm3 Lymphocytes # (Manual) 0.2 L (1.2-5.4) K/mm3 Chloride 109.1 H (98-107) mmol/L BUN 36 H (9-20) mg/dL Creatinine 1.8 H (0.8-1.5) mg/dL Glucose 161 H (75-100) mg/dL POC Glucose 136 H (70-105) Calcium 7.0 L (8.4-10.2) mg/dL Total Protein 5.3 L (6.3-8.2) g/dL Albumin 1.1 L (3.9-5) g/dL Urine WBC (Auto) (0.0-6.0) /HPF Crossmatch
[2018-06-04 08:46] VITALS: BP 130/56
--- NOTE | 2018-06-04 08:49 | Progress Note ---
Subjective Principal diagnosis: PEG Interval history: Patient was seen today for follow-up on multiple renal related issues Events of this hospitalization noted Given first dose of Lasix and albumin yesterday Creatinine remains stable sodium is better Discussed with patient's yesterday who is aware of the patient's poor prognosis Vitals labs intake output medications were reviewed Social history: Reviewed Allergies: Reviewed Family history: Reviewed Physical examination HEENT: Oral mucosa moist no pallor or icterus Neck: Supple no JVD Chest: Clear to auscultation anteriorly CVS: Regular rate and rhythm S1 and S2 heard Abdomen: Soft nontender no suprapubic masses no organomegaly appreciable Extremity: Approximately 2 eripheral edema Musculoskeletal: No joint effusion noted in knees and ankle Neurological: Alert awake Dermatology: No petechial rashes Psychiatry: No evidence of any agitation and aggression noted Assessment and plan Acute renal failure: Multiple risk factor for chronic kidney disease, will give second dose of Lasix due to peripheral edema and third spacing of fluid Will also add albumin Hypernatremia currently better Some of this is also resulting from third spacing of fluid hypernatremia: Gets worse when he is given more diuretic, Patient may need to go to a rehabilitation facility/[facility] Phosphorus magnesium normal on 05/27/2089 Overall prognosis appears to be very poor due to age and multiple comorbidities as well as daughter have been educated consistently during this admission Obstructive uropathy: Patient will need to follow-up with urology We'll continue to follow and make recommendation from renal standpoint Objective - Vital Signs Vital signs: Vital Signs - 12hr 06/03/18 06/03/18 06/03/18 22:35 22:50 23:10 Temperature 98.2 F 98.2 F 98.7 F Pulse Rate 119 H 119 H 116 H Respiratory 20 22 22 Rate Blood Pressure 120/57 120/57 106/54 O2 Sat by Pulse 100 Oximetry 06/03/18 06/04/18 06/04/18 23:50 00:30 01:00 Temperature 99.3 F 99.2 F 99 F Pulse Rate 119 H 112 H 116 H Respiratory 22 22 22 Rate Blood Pressure 104/60 111/62 105/54 O2 Sat by Pulse 100 99 Oximetry 06/04/18 06/04/18 06/04/18 01:30 03:42 08:40 Temperature 99 F 99 F 98.9 F Pulse Rate 112 H 116 H 112 H Respiratory 22 24 20 Rate Blood Pressure 121/61 106/60 130/56 O2 Sat by Pulse 99 100 100 Oximetry - Lab 06/04/18 05:54 06/04/18 05:54 Most recent lab results Calcium 7.0 mg/dL (8.4-10.2) L 06/04/18 05:54 Phosphorus 3.30 mg/dL (2.5-4.5) 05/27/18 14:35 Magnesium 1.90 mg/dL (1.7-2.3) 05/27/18 14:35 Medications & Allergies - Medications Allergies/Adverse Reactions: Allergies Penicillins Allergy (Verified 04/11/18 16:00) Unknown Home Medications: Home Medications Medication Instructions Recorded Confirmed Last Taken Type Clopidogrel Bisulfate [Plavix] 75 mg PO DAILY #0 09/21/17 05/07/18 04/24/18 12:00 History Famotidine [Pepcid] 20 mg PO DAILY #0 09/21/17 05/07/18 04/24/18 History 20mg Simvastatin 40 mg PO HS 09/21/17 05/07/18 04/24/18 08:00 History 20 mg Sucralfate [Carafate] 1 gram PO BID #0 09/21/17 05/07/18 04/24/18 12:00 History 1 gm Ferrous Sulfate [Feosol 325 MG tab] 325 mg PO BID #60 tablet 05/04/18 05/07/18 Unknown Rx Active Medications: Generic Name Dose Route Start Last Admin Trade Name Freq PRN Reason Stop Dose Admin Acetaminophen 650 mg 05/27/18 07:30 06/04/18 00:13 Tylenol FEEDTUBE 650 mg Q4H PRN Administration Pain MILD(1-3)/Fever >100.5/MACIAS Albuterol 2.5 mg 05/10/18 15:59 Proventil IH Q4HRT PRN Shortness Of Breath Lipase/Protease/Amylase 1 each 06/01/18 14:56 Pancresarah Lew 10,500 Unit FEEDTUBE PRN PRN For Clogged Feeding Tube Bisacodyl 10 mg 05/16/18 13:02 05/16/18 13:54 Dulcolax NE 10 mg QDAY PRN Administration Constipation Calcium Carbonate/Glycine 1,250 mg 05/24/18 10:00 06/04/18 00:12 Calcium Carbonate FEEDTUBE 1,250 mg BID FREDI Administration Dextrose 50 ml 05/19/18 05:05 D50w (25gm) Syringe IV PRN PRN Hypoglycemia Ferrous Sulfate 308 mg 05/27/18 10:00 06/03/18 10:52 Ferrous Sulfate FEEDTUBE 308 mg BID FREDI Administration Hydromorphone HCl 0.5 mg 05/08/18 02:22 Dilaudid IV Q3H PRN Pain , Severe (7-10) Dextrose 1,000 mls @ 150 mls/hr 05/27/18 16:00 06/03/18 05:23 D5w IV 125 mls/hr DIRECT FREDI Administration Sodium Chloride 1,000 mls @ 42 mls/hr 06/01/18 13:00 06/01/18 15:15 Nacl 0.9% 1000 Ml IV 42 mls/hr DIRECT FREDI Administration Cefepime HCl 1 gm in 100 mls @ 200 mls/hr 06/02/18 16:00 06/03/18 11:35 Maxipime/Ns 1 Gm/100 Ml IV 200 mls/hr Q12HR FREDI Administration Protocol Metronidazole 500 mg in 100 mls @ 100 mls/hr 06/02/18 17:00 06/03/18 15:39 Flagyl 500 Mg/100 Ml IV 100 mls/hr Q8HR FREDI Administration Protocol Vancomycin HCl 1,500 mg/ 530 mls @ 333 mls/hr 06/03/18 18:00 06/03/18 18:29 Sodium Chloride IV Not Given Q24H FREDI Protocol Insulin Human Lispro 0 unit 05/25/18 13:00 06/03/18 18:04 Humalog SUB-Q Not Given Q6HR FREDI Protocol Lansoprazole 30 mg 05/23/18 10:00 06/03/18 11:30 Prevacid Solutab FEEDTUBE 30 mg QDAY FREDI Administration Loperamide HCl 2 mg 05/31/18 15:17 05/31/18 17:14 Imodium PO 2 mg Q2H PRN Administration Diarrhea Metoclopramide HCl 5 mg 05/27/18 11:30 06/03/18 23:36 Reglan FEEDTUBE 5 mg ACHS FREDI Administration Ondansetron HCl 4 mg 05/08/18 02:22 Zofran IV Q8H PRN Nausea And Vomiting Oxycodone/Acetaminophen 1 tab 03/06/19 07:30 Percocet 5/325 FEEDTUBE Q6H PRN Pain, Moderate (4-6) Pravastatin Sodium 80 mg 05/27/18 22:00 06/03/18 23:38 Pravachol FEEDTUBE 80 mg QHS FREDI Administration Simple Syrup 15 ml 06/01/18 14:56 Simple Syrup FEEDTUBE PRN PRN Hypoglycemia Simple Syrup 30 ml 06/01/18 14:56 Simple Syrup FEEDTUBE PRN PRN Hypoglycemia Sodium Bicarbonate 1,300 mg 05/29/18 14:00 06/03/18 11:34 Sodium Bicarbonate PO 1,300 mg BID FREDI Administration Sodium Bicarbonate 325 mg 06/01/18 14:56 Sodium Bicarbonate FEEDTUBE PRN PRN For Clogged Feeding Tube Sodium Chloride 10 ml 05/08/18 10:00 06/03/18 13:45 Sodium Chloride Flush Syringe 10 Ml IV 10 ml BID FREDI Administration Sodium Chloride 10 ml 05/08/18 02:22 05/08/18 03:56 Sodium Chloride Flush Syringe 10 Ml IV 10 ml PRN PRN Administration LINE FLUSH Sucralfate 1 gm 05/27/18 10:00 06/03/18 11:36 Carafate FEEDTUBE 1 gm BID FREDI Administration
[2018-06-04] MEDS: MAXIPIME/NS 1 GM/100 ML 1 GM/100 ML BAG IV SCH (10:28)
[2018-06-04] MEDS: PREVACID SOLUTAB FEEDTUBE SCH (10:29)
[2018-06-04] MEDS: SODIUM BICARBONATE PO SCH (10:29)
[2018-06-04] MEDS: REGLAN FEEDTUBE SCH ×2 (10:29→11:53)
[2018-06-04] MEDS: FERROUS SULFATE FEEDTUBE SCH (10:30)
[2018-06-04] MEDS: CARAFATE FEEDTUBE SCH (10:32)
[2018-06-04] MEDS ORDERED: ALBURX 25% (ALBUMIN) IV ONE (11:00)
[2018-06-04] MEDS ORDERED: LASIX IV ONE (11:00)
[2018-06-04] MEDS: SODIUM CHLORIDE FLUSH SYRINGE 10 ML IV SCH (11:53)
[2018-06-04] MEDS: HumaLOG SUB-Q SCH (12:43)
--- NOTE | 2018-06-05 16:07 | Discharge Summary ---
Providers - Providers Date of Admission: 05/07/18 13:04 Attending physician: MONAE CRUZ MD 05/08/18 07:06 Consult to Wound/ET Nurse [CONS] Urgent Reason For Exam: wound eval to sacrum area 05/08/18 15:37 Physical Therapy Evaluation and Treat [CONS] Routine Comment: Reason For Exam: physical debility 05/09/18 13:02 Speech Therapy Evaluation and Treat [CONS] Urgent Reason For Exam: swallowing 05/11/18 09:22 Consult to Physician [CONS] Routine Comment: LOUISE Consulting Provider: AFSHAN OLGUIN Physician Instructions: MAURA ALMARAZ ASSISTANT ATTORNEY GENERAL WAS NOTIFIED. Reason For Exam: leukocytosis fro cystits 05/11/18 11:04 Speech Therapy Evaluation and Treat [CONS] Stat Reason For Exam: Dysphagia re-evaluation. 05/11/18 14:01 Consult to Physician [CONS] Routine Comment: Consulting Provider: HA ANTONIO Physician Instructions: Reason For Exam: PEG tube placement 05/13/18 10:50 Speech Therapy Evaluation and Treat [CONS] Stat Reason For Exam: Family demands re-eval before PEG placement 05/13/18 13:54 Consult to Dietitian/Nutrition [CONS] Stat Physician Instructions: Reason For Exam: Tube feeding management Reason for Consult: Write/Manage Tube Feeding 05/13/18 15:13 Occupational Therapy Evaluate and Treat [CONS] Routine Comment: Reason For Exam: physical deconditioning 05/15/18 11:52 Speech Therapy Evaluation and Treat [CONS] Stat Reason For Exam: Swallowing evaluation 05/15/18 11:53 Occupational Therapy Evaluate and Treat [CONS] Routine Comment: Reason For Exam: Physcial Debility Physical Therapy Evaluation and Treat [CONS] Routine Comment: Reason For Exam: physical debility 05/16/18 14:10 Consult to Physician [CONS] Routine Comment: Consulting Provider: JODIE JOHNSON Physician Instructions: Reason For Exam: PEG tube placement, family now wants it placed 05/18/18 16:10 Consult to Wound/ET Nurse [CONS] Urgent Reason For Exam: reassess sacral wound please 05/18/18 16:18 Consult to Physician [CONS] Routine Comment: Consulting Provider: MARTÍNEZ TAVERAS Physician Instructions: consult neph Reason For Exam: BUN elevated 05/19/18 15:35 Consult to Physician [CONS] Routine Comment: Consulting Provider: ANICETO MARIANO Physician Instructions: Reason For Exam: PEG placement [ GI has no wondow pt place PEG] 05/21/18 18:45 Consult to Dietitian/Nutrition [CONS] Routine Physician Instructions: Assess nutrtn needs, initiate, modify, manage TF Reason For Exam: Reason for Consult: Write/Manage Tube Feeding Reason for Consult: Write/Manage Tube Feeding 05/22/18 07:55 Consult to Physician [CONS] Routine Comment: Consulting Provider: BERTHA HARO Physician Instructions: Reason For Exam: PEG placement[ GI /IR unable no window for PEG ] 05/28/18 08:37 Consult to Dietitian/Nutrition [CONS] Routine Physician Instructions: Assess nutrtn needs, initiate, modify, manage TF Reason For Exam: Reason for Consult: Write/Manage Tube Feeding Reason for Consult: Write/Manage Tube Feeding 05/29/18 21:01 Consult to Dietitian/Nutrition [CONS] Routine Physician Instructions: Assess nutrtn needs, initiate, modify, manage TF Reason For Exam: Reason for Consult: Write/Manage Tube Feeding Reason for Consult: Write/Manage Tube Feeding 05/31/18 13:44 Physical Therapy Evaluation and Treat [CONS] Routine Comment: Reason For Exam: gen debilty/evaluate and treat 06/01/18 19:07 Consult to Physician [CONS] Routine Comment: spoke to дмитрий Consulting Provider: AFSHAN OLGUIN Physician Instructions: Reason For Exam: recurrent asp pneumonia/adv abx 06/02/18 16:28 Consult to Physician [CONS] Routine Comment: spoke to dr. schultz Consulting Provider: LES NUNO Physician Instructions: Reason For Exam: durán exchange Primary care physician: KANDACE LAMAR Hospitalization Condition: Fair Hospital course: Very frail 78-year-old male patient was admitted with UTI, recurrent aspiration pneumonia, dysphagia, status post PEG, planning to discharge home with home health, family refused rehabilitation/SNF placement, -he developed fever, found to have R Chest PNA, completed abx for UTI and recurrent aspiration pna, restarted on abx LUE swelling was noted , DUplex was negative for DVT, improved with elevation of extremity -Sp PEG for dysphagia -received 2 units pbr for anemia -He also had acute kidney injury, vasomotor nephropathy, which improved with gentle hydration and avoidance of nephrotoxins -The patient has history of urinary retention, has had indwelling Durán since 04/25/2018, which has been kept in place -The patient has chronic left hydronephrosis and atrophic kidney, this has been extensively evaluated by urology in previous visits, who recommended no further management given that the kidney is atrophic and unlikely to recover without any intervention -The patient has received physical therapy for deconditioning -Rehabilitation was recommended, but the family would like to take him home. -hypernatremia improved with free water via G tube, NS was dc -He was treated with Lasix for fluid overload, new infiltrate was seen on repeat chest x-ray a few days prior to discharge. The patient was spiking fevers. His Durán catheter was exchanged prior to discharge. He was here IV antibiotics and transitioned to oral antibiotics and he will complete at home. Diagnosis Recurrent aspiration PNA Sepsis hypotension Sinus tachycardia UTI Dehydration Left upper extremity dependent edema Dysphasia Acute on chronic Acute kidney injury/results and nephropathy Chronic left hydronephrosis with atrophic kidney Persistent hyperglycemia due to type 2 diabetes --Acute metabolic encephalopathy; present on admission --Severe protein calorie malnutrition --H/O CVA with right-sided hemiparesis, supportive care --Chronic urinary retention; urology rec, cont durán catheter --Physical deconditioning; Hypernatremia fluid overload Disposition: DC-50 TO HOSPICE (HOME) Time spent for discharge: 33 mins Core Measure Documentation - Palliative Care Palliative Care/ Comfort Measures: Hospice Care - Core Measures Any of the following diagnoses?: none Exam - Physical Exam Narrative exam: General.: Appears chronically ill HEENT: Moist mucous membranes, extraocular muscles intact, no lymphadenopathy Neck: supple Cardiac: S1-S2 heard Lungs: Decreased air entry, crackles in bases Abdomen: soft , nontender, nondistended, bowel sounds positive Extremities: no edema clubbing or cyanosis Skin: no rash or lesions Neurologic: Confused, generalized weakness, moves extremities and opens eyes. Currently not verbal - Constitutional Vitals: Temp Pulse Resp BP Pulse Ox 98.9 F 112 H 20 130/56 100 06/04/18 08:40 06/04/18 08:40 06/04/18 10:00 06/04/18 08:40 06/04/18 08:40 Plan Follow up with: KANDACE LAMAR [Other] - 3-5 Days Prescriptions: Amoxicillin/Potassium Clav [Augmentin 875-125 Tablet] 1 each PO DAILY #7 tablet Furosemide [Lasix TAB] 40 mg PO QDAY #30 tablet Doxycycline [Vibramycin CAP] 100 mg PO Q12HR #14 capsule
== END 2018-06-04 16:00 | disposition hospice, home (50) | DRG 871 ==
LOC: ED 09:44 → 2B-ACE 13:04 → IMCU 05-14 11:37 → 2B-ACE 05-22 17:11
PROVIDERS: ADMIT Internal Medicine; ATTEND Internal Medicine
PROC: 4A033R1 Measurement of Arterial Saturation, Peripheral, Percutaneous Approach (ICD-10-PCS; 2018-05-14)
PROC: 30233N1 Transfusion of Nonautologous Red Blood Cells into Peripheral Vein, Percutaneous Approach (ICD-10-PCS; 2018-05-18)
PROC: 0DB98ZX Excision of Duodenum, Via Natural or Artificial Opening Endoscopic, Diagnostic (ICD-10-PCS; principal; 2018-05-19)
PROC: 0DH64UZ Insertion of Feeding Device into Stomach, Percutaneous Endoscopic Approach (ICD-10-PCS; 2018-05-26)
DX: A41.9 Sepsis, unspecified organism (principal); G93.41 Metabolic encephalopathy; J69.0 Pneumonitis due to inhalation of food and vomit; E43 Unspecified severe protein-calorie malnutrition; J96.01 Acute respiratory failure with hypoxia; N17.0 Acute kidney failure with tubular necrosis; E87.0 Hyperosmolality and hypernatremia; I69.351 Hemiplegia and hemiparesis following cerebral infarction affecting right dominant side; N13.6 Pyonephrosis; R64 Cachexia; R18.8 Other ascites; E66.9 Obesity, unspecified; K21.9 Gastro-esophageal reflux disease without esophagitis; R13.12 Dysphagia, oropharyngeal phase; E87.6 Hypokalemia; E86.0 Dehydration; N18.9 Chronic kidney disease, unspecified; K26.9 Duodenal ulcer, unspecified as acute or chronic, without hemorrhage or perforation; E11.22 Type 2 diabetes mellitus with diabetic chronic kidney disease; E11.65 Type 2 diabetes mellitus with hyperglycemia; N26.1 Atrophy of kidney (terminal); I69.391 Dysphagia following cerebral infarction; N13.9 Obstructive and reflux uropathy, unspecified; D63.1 Anemia in chronic kidney disease; J45.909 Unspecified asthma, uncomplicated; Z96.651 Presence of right artificial knee joint; Z68.35 Body mass index [BMI] 35.0-35.9, adult; Z87.891 Personal history of nicotine dependence; Z88.0 Allergy status to penicillin
CPT/HCPCS: 36415; 36600; 70450; 70486; 71045; 71046; 71250; 74018; 74176; 76770; 80048; 80053; 80076; 81001; 82140; 82803; 82947; 82962; 83036; 83735; 83930; 84100; 84550; 85007; 85025; 85027; 85610; 85730; 86334; 86850; 86900; 86901; 86920; 87040; 87086; 87116; 87400; 88305; 88312; 93005; 93010; 93306; 93970; G0378; 87502; A9270-GY; C9113; J0295; J0692; J0696; J1580; J1650; J1815; J1885; J1940; J2370; J2405; J2704; J3010; J3370; J3480; J7030; J7040; J7042; J7070; J7120; P9016; P9047